=== PATIENT | female | born 1960 | race Caucasian/White ===

== ENCOUNTER 2022-10-13 08:47 | Emergency (ER) | payer BC, MEDICAID ==
[~2022-10-13] VITALS: Ht 154.9 cm; Wt 52.0 kg
[2022-10-13 09:46] VITALS: BP 141/68
[2022-10-13] MEDS ORDERED: ALBUTEROL MEDNEB 2.5 mg/3ml NEB ONE (12:25)
[2022-10-13] MEDS ORDERED: ALBUTEROL SULF 2.5 MG/0.5ML(0.5%) NEB SOLN NEB ONE (12:30)
[2022-10-13] MEDS ORDERED: MAGNESIUM SULFATE 1GM/100ML 100 ML IV SCH (12:30)
[2022-10-13] MEDS ORDERED: DexAMETHasone SOD PHOS 10MG/1ML VIAL INJ IV ONE (12:30)
[2022-10-13] MEDS ORDERED: IPRATROPIUM BROM 0.5 MG/2.5ML INH SOL NEB ONE (12:30)
[2022-10-13 12:40] LABS: Hematocrit 48.9 % (36.0-46.0); Hemoglobin 16.6 g/dL (12.2-16.2); Mean Corpuscular Hemoglobin 30.2 pg (28.0-32.0); Mean Corpuscular Hgb Conc. 33.9 g/dL (32.0-36.0); Mean Corpuscular Volume 89.2 fL (80.0-100.0); Red Blood Cells 5.48 10^6/uL (4.0-5.20); Red Cell Distribution Width 13.9 % (11.8-14.3); White Blood Cell 9.8 10^3/uL (4.4-10.8)
[2022-10-13 13:11] LABS: Albumin 4.1 g/dL (3.4-5.0); Calcium 9.2 mg/dL (8.5-10.1); Potassium 5.2 mmol/L (3.5-5.1)
[2022-10-13 13:14] LABS: BUN/Creatinine Ratio 20.9; Bilirubin, Total 0.9 mg/dL (0.2-1.0); Total Protein 6.4 g/dL (6.4-8.2)
[2022-10-13 13:15] LABS: Basophils % (manual) 0 (0.0-2.0); Blast Cells 0; Metamyelocytes % 0; Myelocytes % 0; Promyelocytes % 0; Reactive Lymphocytes 0
[2022-10-13 14:48] LABS: Band Neutrophils % (manual) 5; Eosinophils % (manual) 8 (0-7); Lymphocytes % (manual) 11 (10.0-50.0); Monocytes % (manual) 8 (0-12)
== END 2022-10-13 16:04 | disposition left against medical advice (07) ==
LOC: ER 08:47
DX: J45.901 Unspecified asthma with (acute) exacerbation (principal); Z20.822 Contact with and (suspected) exposure to COVID-19
CPT/HCPCS: 36415; 71046; 80053; 83880; 84484; 85007; 85027; 87426; 87804; 94640; 99284; J7644

== ENCOUNTER 2023-09-02 13:08 | Inpatient (IN) | payer MEDICAID ==
[~2023-09-02] VITALS: Ht 157.5 cm; Wt 61.3 kg
[~2023-09-02 13:08] MED LIST: ACET-1080 PO; METH-1182 PO
[2023-09-02 13:12] VITALS: BP 157/105; PULSE 142; O2SAT 100
[2023-09-02] MEDS ORDERED: IPRATROPIUM BROM 0.5 MG/2.5ML INH SOL HHN ONE (13:15)
[2023-09-02] MEDS ORDERED: LORazepam 2MG/ML-1ML VIAL IV ONE (13:15)
[2023-09-02] MEDS ORDERED: methylPREDNISolone SOD SUCC 125 MG/2 ML VL IV ONE (13:15)
[2023-09-02] MEDS ORDERED: ALBUTEROL SULF 2.5 MG/0.5ML(0.5%) NEB SOLN HHN ONE (13:15)
[2023-09-02 14:01] LABS: Red Cell Distribution Width 14.4 % (11.8-14.3)
[2023-09-02 14:03] LABS: Hematocrit 50.1 % (36.0-46.0); Mean Corpuscular Hemoglobin 28.9 pg (28.0-32.0); Mean Corpuscular Hgb Conc. 33.8 g/dL (32.0-36.0); Mean Corpuscular Volume 85.5 fL (80.0-100.0); Red Blood Cells 5.86 10^6/uL (4.0-5.20)
[2023-09-02 14:06] LABS: Alanine Aminotransferase 22 U/L (7-40); Alkaline Phosphatase 121 U/L (46-116); Anion Gap 7 (5-15); Aspartate Aminotransferase 23 U/L (13-40); BUN/Creatinine Ratio 29.8 (10.0-20.0); Blood Urea Nitrogen 17 mg/dL (9-23); Calcium 10.2 mg/dL (8.7-10.4); Carbon Dioxide 29 mmol/L (20-30); Chloride 104 mmol/L (98-107); Glucose 152 mg/dL (74-106); Magnesium 2.3 mg/dL (1.6-2.6); Potassium 4.3 mmol/L (3.5-5.1); Sodium 140 mmol/L (136-145)
[2023-09-02 14:07] LABS: Bilirubin, Total 0.5 mg/dL (0.2-1.0); Total Protein 7.5 g/dL (5.7-8.2)
[2023-09-02 14:11] LABS: White Blood Cell 31.4 10^3/uL (4.4-10.8)
[2023-09-02 14:13] LABS: Band Neutrophils % (manual) 0; Basophils % (manual) 0 (0.0-2.0); Blast Cells 0; Metamyelocytes % 0; Myelocytes % 0; Promyelocytes % 0; Reactive Lymphocytes 0
[2023-09-02 14:35] LABS: Eosinophils % (manual) 1 (0-7); Lymphocytes % (manual) 13 (10.0-50.0); Monocytes % (manual) 14 (0-12)
[2023-09-02 14:36] LABS: Platelet Estimate Adequa
[2023-09-02] MEDS ORDERED: SODIUM CHLORIDE 0.9% 500 ML IV ONE (15:30)
[2023-09-02 15:36] VITALS: PULSE 134; RESP 25; O2SAT 98
[2023-09-02 16:41] VITALS: BP 142/101; PULSE 112; O2SAT 98
[2023-09-02 18:10] VITALS: BP 137/92; PULSE 118; O2SAT 98
[2023-09-02 20:49] LABS: Urine Bacteria FEW /hpf (None Seen); Urine Blood Negative /uL (Negative); Urine Clarity Clear (Clear); Urine Color Yellow (Yellow); Urine Hyaline Cast FEW /lpf (0 - 2); Urine Mucus FEW (None Seen); Urine Protein, UAD 1+ (Negative); Urine Specific Gravity 1.024 (1.001-1.035); Urine Urobilinogen Normal (Negative); Urine WBC 4 /hpf (0 - 5); Urine pH 5.5 (5.0-8.0)
[2023-09-02] MEDS ORDERED: NITROGLYCERIN 0.4 MG SL TAB SL PRN (21:45)
[2023-09-02] MEDS ORDERED: ACETAMINOPHEN 325 MG TAB PO PRN (21:45)
[2023-09-02] MEDS ORDERED: MORPHINE SULFATE INJ 2 MG/ml SYRG IV PRN (21:45)
[2023-09-02] MEDS ORDERED: ONDANSETRON HCL 4 MG/2 ML VIAL IV PRN (21:45)
[2023-09-02] MEDS ORDERED: methylPREDNISolone SOD SUCC 40 MG/ML VL IV SCH (22:00)
[2023-09-02 22:52] VITALS: PULSE 98; RESP 20; O2SAT 97; O2SAT 98
[2023-09-02] MEDS: ALBUTEROL SULF 2.5 MG/0.5ML(0.5%) NEB SOLN NEB PRN (22:52)
[2023-09-02] MEDS: BUDESONIDE (INHALATION) 0.5 MG/2 ML NEB NEB SCH (22:52)
[2023-09-02] MEDS: IPRATROPIUM BROM 0.5 MG/2.5ML INH SOL NEB PRN (22:52)
[2023-09-02 23:02] VITALS: PULSE 100; RESP 20; O2SAT 100
[2023-09-03] VITALS (14 sets, daily range): BP systolic 106–144; BP diastolic 74–81; PULSE 61–107; RESP 17–22; TEMP 97.5–98; O2SAT 85–100
[2023-09-03 05:34] LABS: Hematocrit 39.6 % (36.0-46.0); Hemoglobin 13.4 g/dL (12.2-16.2); Mean Corpuscular Hemoglobin 28.9 pg (28.0-32.0); Mean Corpuscular Hgb Conc. 33.8 g/dL (32.0-36.0); Mean Corpuscular Volume 85.7 fL (80.0-100.0); Red Blood Cells 4.63 10^6/uL (4.0-5.20); Red Cell Distribution Width 13.8 % (11.8-14.3)
[2023-09-03 05:40] LABS: Alanine Aminotransferase 13 U/L (7-40); Albumin 3.8 g/dL (3.2-4.8); Alkaline Phosphatase 81 U/L (46-116); Anion Gap 8 (5-15); Aspartate Aminotransferase 14 U/L (13-40); BUN/Creatinine Ratio 24.2 (10.0-20.0); Bilirubin, Total 0.6 mg/dL (0.2-1.0); Blood Urea Nitrogen 8 mg/dL (9-23); Calcium 9.6 mg/dL (8.7-10.4); Carbon Dioxide 25 mmol/L (20-30); Chloride 103 mmol/L (98-107); Glucose 100 mg/dL (74-106); Potassium 3.9 mmol/L (3.5-5.1); Sodium 136 mmol/L (136-145); Total Protein 5.9 g/dL (5.7-8.2)
[2023-09-03 05:52] LABS: Basophils % (manual) 0 (0.0-2.0); Blast Cells 0; Eosinophils % (manual) 0 (0-7); Metamyelocytes % 0; Myelocytes % 0; Promyelocytes % 0; Reactive Lymphocytes 0
[2023-09-03 09:25] LABS: Band Neutrophils % (manual) 1; Lymphocytes % (manual) 6 (10.0-50.0); Monocytes % (manual) 5 (0-12)
[2023-09-03 09:26] LABS: Platelet Estimate Adequate; RBC Morphology Normal
[2023-09-03] MEDS: methylPREDNISolone SOD SUCC 40 MG/ML VL IV SCH ×2 (10:24→21:05)
[2023-09-03] MEDS: IPRATROPIUM BROM 0.5 MG/2.5ML INH SOL NEB PRN (11:29)
[2023-09-03] MEDS: ALBUTEROL SULF 2.5 MG/0.5ML(0.5%) NEB SOLN NEB PRN (11:29)
[2023-09-03] MEDS: BUDESONIDE (INHALATION) 0.5 MG/2 ML NEB NEB SCH ×2 (11:29→18:24)
[2023-09-03] MEDS: AZITHROMYCIN 250 MG TAB PO SCH (15:31)
[2023-09-03] MEDS: IPRATROPIUM BROM 0.5 MG/2.5ML INH SOL NEB SCH (18:24)
[2023-09-03] MEDS: ALBUTEROL SULF 2.5 MG/0.5ML(0.5%) NEB SOLN NEB SCH (18:24)
[2023-09-03] MEDS: TEMAZEPAM 15 MG CAP PO PRN (21:10)
[2023-09-04] VITALS (12 sets, daily range): BP systolic 122–137; BP diastolic 73–79; PULSE 75–92; RESP 17–20; TEMP 97.7–98.1; O2SAT 93–97
[2023-09-04] MEDS: IPRATROPIUM BROM 0.5 MG/2.5ML INH SOL NEB SCH ×2 (06:24→13:28)
[2023-09-04] MEDS: BUDESONIDE (INHALATION) 0.5 MG/2 ML NEB NEB SCH ×2 (06:24→20:25)
[2023-09-04] MEDS: ALBUTEROL SULF 2.5 MG/0.5ML(0.5%) NEB SOLN NEB SCH ×2 (06:24→13:28)
[2023-09-04 06:27] LABS: Hematocrit 39.5 % (36.0-46.0); Hemoglobin 13.3 g/dL (12.2-16.2); Mean Corpuscular Hemoglobin 28.8 pg (28.0-32.0); Mean Corpuscular Hgb Conc. 33.8 g/dL (32.0-36.0); Mean Corpuscular Volume 85.3 fL (80.0-100.0); Red Blood Cells 4.63 10^6/uL (4.0-5.20); White Blood Cell 10.3 10^3/uL (4.4-10.8)
[2023-09-04 06:32] LABS: Basophils % (manual) 0 (0.0-2.0); Blast Cells 0; Eosinophils % (manual) 0 (0-7); Myelocytes % 0; Promyelocytes % 0; Reactive Lymphocytes 0
[2023-09-04 06:43] LABS: Anion Gap 7 (5-15); Carbon Dioxide 30 mmol/L (20-30); Chloride 102 mmol/L (98-107); Potassium 4.1 mmol/L (3.5-5.1); Sodium 139 mmol/L (136-145)
[2023-09-04 06:44] LABS: Calcium 9.9 mg/dL (8.7-10.4)
[2023-09-04 06:49] LABS: BUN/Creatinine Ratio 25.6 (10.0-20.0); Blood Urea Nitrogen 10 mg/dL (9-23); Glucose 129 mg/dL (74-106)
[2023-09-04] MEDS: AZITHROMYCIN 250 MG TAB PO SCH (09:08)
[2023-09-04] MEDS: methylPREDNISolone SOD SUCC 40 MG/ML VL IV SCH ×2 (09:09→22:00)
[2023-09-04 09:31] LABS: Band Neutrophils % (manual) 11; Lymphocytes % (manual) 5 (10.0-50.0); Metamyelocytes % 5; Monocytes % (manual) 4 (0-12); Platelet Estimate Adequate
[2023-09-04] MEDS: ALBUTEROL SULF 2.5 MG/0.5ML(0.5%) NEB SOLN NEB PRN (20:25)
[2023-09-04] MEDS: IPRATROPIUM BROM 0.5 MG/2.5ML INH SOL NEB PRN (20:25)
[2023-09-04] MEDS: TEMAZEPAM 15 MG CAP PO PRN (22:09)
[2023-09-05] VITALS (7 sets, daily range): BP systolic 126–131; BP diastolic 77–86; PULSE 64–97; RESP 18; TEMP 36.6; O2SAT 91–98
[2023-09-05 05:37] LABS: Chloride 104 mmol/L (98-107); Potassium 3.4 mmol/L (3.5-5.1); Sodium 138 mmol/L (136-145)
[2023-09-05 05:38] LABS: Anion Gap 5 (5-15); Calcium 9.2 mg/dL (8.7-10.4); Carbon Dioxide 29 mmol/L (20-30)
[2023-09-05 05:42] LABS: Hematocrit 38.2 % (36.0-46.0); Mean Corpuscular Hgb Conc. 34.1 g/dL (32.0-36.0); Mean Corpuscular Volume 85.1 fL (80.0-100.0); Red Blood Cells 4.49 10^6/uL (4.0-5.20); Red Cell Distribution Width 14.5 % (11.8-14.3); White Blood Cell 8.2 10^3/uL (4.4-10.8)
[2023-09-05 05:44] LABS: BUN/Creatinine Ratio 24.3 (10.0-20.0); Blood Urea Nitrogen 9 mg/dL (9-23); Glucose 86 mg/dL (74-106)
[2023-09-05 05:50] LABS: Band Neutrophils % (manual) 0; Basophils % (manual) 0 (0.0-2.0); Blast Cells 0; Eosinophils % (manual) 0 (0-7); Metamyelocytes % 0; Promyelocytes % 0; Reactive Lymphocytes 0
[2023-09-05] MEDS: ALBUTEROL SULF 2.5 MG/0.5ML(0.5%) NEB SOLN NEB PRN (07:44)
[2023-09-05] MEDS: BUDESONIDE (INHALATION) 0.5 MG/2 ML NEB NEB SCH (07:44)
[2023-09-05] MEDS: IPRATROPIUM BROM 0.5 MG/2.5ML INH SOL NEB PRN (07:44)
[2023-09-05] MEDS: AZITHROMYCIN 250 MG TAB PO SCH (09:06)
[2023-09-05] MEDS: methylPREDNISolone SOD SUCC 40 MG/ML VL IV SCH (09:06)
[2023-09-05 09:16] LABS: Lymphocytes % (manual) 18 (10.0-50.0); Monocytes % (manual) 11 (0-12); Myelocytes % 3; Platelet Estimate Adequate
[2023-09-05] MEDS ORDERED: DOXY-448 PO (11:58)
[2023-09-05] MEDS ORDERED: PRED20TA2 PO (11:58)
[2023-09-05] MEDS ORDERED: POTASSIUM EFFERVESENT TAB 25 MEQ PO ONE (14:30)
== END 2023-09-05 17:00 | disposition home health service (06) | DRG 720 ==
LOC: ER 13:08 → EDBD 13:08 → TELE 21:42 → TELE-CENTR 09-03 09:22
PROVIDERS: ADMIT Nurse Practitioner; ATTEND Nurse Practitioner Acute Care
PROC: 5A09357 Assistance with Respiratory Ventilation, Less than 24 Consecutive Hours, Continuous Positive Airway Pressure (ICD-10-PCS; principal; 2023-09-02)
DX: A41.9 Sepsis, unspecified organism (principal); J96.21 Acute and chronic respiratory failure with hypoxia; J15.69 Pneumonia due to other Gram-negative bacteria; J44.1 Chronic obstructive pulmonary disease with (acute) exacerbation; J43.9 Emphysema, unspecified; E87.6 Hypokalemia; I35.0 Nonrheumatic aortic (valve) stenosis; Z53.29 Procedure and treatment not carried out because of patient's decision for other reasons; J96.22 Acute and chronic respiratory failure with hypercapnia; Z87.891 Personal history of nicotine dependence; Z90.710 Acquired absence of both cervix and uterus; Z95.2 Presence of prosthetic heart valve; Z79.899 Other long term (current) drug therapy; Z82.49 Family history of ischemic heart disease and other diseases of the circulatory system; J15.9 Unspecified bacterial pneumonia
CPT/HCPCS: 36415; 36600; 71045; 80048; 80053; 81001; 82805; 83605; 83735; 83880; 84484; 85007; 85027; 85379; 87040; 93005; 94640; 94644; 94660; 97163; 99291; G0378

== ENCOUNTER 2024-09-05 11:13 | Inpatient (IN) | payer MEDICAID ==
[2024-09-05] VITALS (9 sets, daily range): BP systolic 115–116; BP diastolic 71–77; PULSE 94–108; RESP 12–25; TEMP 97.8–98.5; O2SAT 93–98
[~2024-09-05] VITALS: Ht 152.4 cm; Wt 48.3 kg
[~2024-09-05 11:13] MED LIST changes: +DOXY100C79 PO; +PRED20TA2 PO
--- NOTE | 2024-09-05 11:27 | ED.PDOC ---
HPI Comments HPI: Poor Historian. 63y F who presents to the ED via EMS for chief complaint of chest pain. Pt had the following presentation of symptoms: -pt has been having chest pain since 1 days prior and states pain was radiating to the L shoulder. - pt states her symptom persisted and pt took ASA and called EMS to the scene - EMS arrived on scene and pt was given 1 of nitro and brought to the ED with relief of symptoms. VITALS: Temp: 98.5 F RR: 15 02 sat : 88 % on room air HR: 103 BP: 108/73 PMH: COPD, hyperlipidemia, Acute on chronic hypoxic respiratory failure PSH: aortic valve replacement, Hysterectomy, cataract surgery Social history: denies tobacco use, denies ETOH use, denies drug use Medications: ASA, Allergies: none REVIEW OF SYSTEMS: CONSTITUTIONAL: Denies acute: fever, diaphoresis, chills, generalized weakness. HEAD: Denies acute: headache, photophobia Eyes: Denies acute: Double vision, vision loss, eye pain, eye discharge. EARS: Denies acute: tinnitus, hearing loss, ear discharge, ear pain, THROAT: Denies acute: sore throat, swelling, difficulty swallowing , pain with swallowing, change in voice. NECK: Denies acute: neck pain, neck swelling, stiff neck. HEART: Denies acute : palpitations, LUNGS: Denies acute: SOB, wheezing, cough, hemoptysis ABDOMEN: Denies acute: abdominal pain, Nausea, Vomiting, diarrhea, melena , hematemesis, hematochezia SKIN: Denies acute: rash, redness, lesions, itchiness. EXTREMITIES: Denies acute: calf pain, numbness, tingling, weakness, denies pain in extremity. Denies acute: Low back pain. Neuro: Denies acute: focal neurological deficit, motor or sensory focal neurological deficit, tremors, seizure like activity, confusion, dizziness, change in mental status, loss of bowel or bladder function, cauda equina like symptoms. : Denies acute: dysuria, hematuria, flank pain, increase in urinary frequency. PSYCH: Denies acute: hallucination, suicidal ideation, homicidal ideation. FEMALE: Denies acute: abnormal vaginal bleeding, foul odor, unusual discharge. PHYSICAL EXAM: General: no acute distress, awake and alert. Head: normocephalic, atraumatic. Neck: supple, trachea is midline, no swelling. Throat: Normal phonation. Eyes:, no erythema, no purulent discharge, no proptosis, no icterus. Heart: regular rate, regular rhythm, no significant murmur appreciated. Lungs: no apparent respiratory distress, Able to speak in full sentences. No wheezing, no rhonchi, no crackles. No stridors Clear to auscultation bilaterally. Patient is wearing supplemental oxygen. Abdomen: non tender to palpation, non distended, soft, no guarding, no rebound, + bowel sounds. Neuro: Awake, Alert, oriented to name, self, situation, follows commands GCS=15. Speech is normal. Skin: no petechia, no purpura, no cyanosis, non-pale, not jaundice. Lower extremities: --no - Pitting edema no deformity, no focal swelling, no calf TTP. Makes eye contact. moves all four extremities. Face: no apparent facial droop. Chief Complaint: Chest Pain Time Seen by MD: 11:26 Primary Care Provider: UNKNOWN Reviewed Notes: Nurses Notes, Personnel Worker Notes, Allergies Allergies: Coded Allergies: NO KNOWN ALLERGIES (Unverified , 02/17/23) Home Meds Active Scripts Prednisone (Prednisone) 20 Mg Tab, 20 MG PO BID for 6 Days, #6 MG 10 mg twice a day x 3 days 10 mg once a day x 3 days Prov:YULIA WEBB NP 09/05/23 Doxycycline (Monohydrate) (Doxycycline) 100 Mg Cap, 100 MG PO BID for 7 Days, #14 CAP Prov:YULIA WEBB FRUIT WORKER 09/05/23 Acetaminophen (Tylenol 8 Hour Arthritis) 650 Mg Tab, 650 MG PO TID, #30 TAB Prov:CAMILLE HERNANDEZ 02/17/23 Methocarbamol (Methocarbamol) 750 Mg Tab, 750 MG PO BID, #20 TAB Prov:CAMILLE HERNANDEZ 02/17/23 Reported Medications Atorvastatin Calcium (ATORVASTATIN CALCIUM) 10 Mg Tab, PO 09/05/24 Information Source: Patient, Emergency Med Personnel Mode of Arrival: EMS Past Medical History PAST MEDICAL HISTORY: Asthma, COPD Surgical History: Hysterectomy, Denies all surgeries SERVICE TECH History: No Pertinent SERVICE TECH History Family History Family History: Reviewed,noncontributory to illness Social History Smoker: Non-Smoker Alcohol: Denies ETOH Use Drugs: Denies Drug Use Lives In: Home Was a procedure done? Was a procedure done?: No X-Ray, Labs, Meds, VS Vital Signs Date Time Temp Pulse Resp B/P (MAP) Pulse Ox O2 Delivery O2 Flow Rate FiO2 09/05/24 13:32 115/71 09/05/24 12:15 84 09/05/24 12:00 87 23 110/69 (83) 96 09/05/24 11:25 100 12 93 Nasal Cannula* 2 28 09/05/24 11:25 98.5 100 12 117/76 (90) 93 98.5 09/05/24 11:18 98.5 103 15 108/73 (85) 88 09/05/24 11:13 108 Lab Test 09/05/24 14:37 09/05/24 14:31 09/05/24 13:08 09/05/24 11:30 Range/Units Troponin I High Sensitivity < 3 L < 3 L < 3 L </=34 ng/L C-Reactive Protein High Sensitivity 5.59 H <1.0 mg/dL D-Dimer, Quantitative 1.10 H 0.0-0.49 mg/L FEU White Blood Count 16.6 H 4.4-10.8 10^3/uL Red Blood Count 4.88 4.0-5.20 10^6/uL Hemoglobin 13.8 12.2-16.2 g/dL Hematocrit 41.7 36.0-46.0 % Mean Corpuscular Volume 85.6 80.0-100.0 fL Mean Corpuscular Hemoglobin 28.3 28.0-32.0 pg Mean Corpuscular Hemoglobin Concent 33.0 32.0-36.0 g/dL Red Cell Distribution Width 15.8 H 11.8-14.3 % Platelet Count 470 H 140-450 10^3/uL Mean Platelet Volume 6.6 L 6.9-10.8 fL Neutrophils (%) (Auto) 37.0-80.0 % Lymphocytes (%) (Auto) 10.0-50.0 % Monocytes (%) (Auto) 0.0-12.0 % Basophils (%) (Auto) 0.0-2.0 % Neutrophils # (Auto) 1.6-8.6 10 ^3/uL Lymphocytes # (Auto) 0.4-5.4 10 ^3/uL Monocytes # (Auto) 0-1.3 10 ^3/uL Differential Total Cells Counted 100.0 100 Neutrophils % (Manual) 69 37.0-80.0 Band Neutrophils % (Manual) 2 Lymphocytes % (Manual) 13 10.0-50.0 Monocytes % (Manual) 16 H 0-12 Eosinophils % (Manual) 0 0-7 Basophils % (Manual) 0 0.0-2.0 Metamyelocytes % (manual) 0 Myelocytes % (Manual) 0 Promyelocytes % (Manual) 0 Blast Cells % (Manual) 0 Reactive Lymphocytes 0 Platelet Estimate Increased Prothrombin Time 11.9 H 9.3-11.8 sec Prothrombin Time INR 1.13 0.9-1.15 Activated Partial Thromboplast Time 31.9 24.5-34.5 SEC Urine Color Colorless Yellow Urine Clarity Clear Clear Urine pH 6.0 5.0-9.0 Urine Specific [place] 1.010 1.001-1.035 Urine Protein Negative Negative Urine Ketones Negative Negative Urine Blood Negative Negative /uL Urine Nitrite 2+ H Negative Urine Bilirubin Negative Negative Urine Urobilinogen Normal Negative mg/dL Urine Leukocyte Esterase Trace Negative /uL Urine RBC <1 0 - 4 /hpf Urine WBC 5 0 - 5 /hpf Urine Squamous Epithelial Cells None seen <5 /hpf Urine Bacteria Few H None Seen /hpf Urine Glucose Normal Normal mg/dL Sodium Level 137 136-145 mmol/L Potassium Level 4.1 3.5-5.1 mmol/L Chloride Level 107 98-107 mmol/L Carbon Dioxide Level 23 20-31 mmol/L Anion Gap 7 5-15 Blood Urea Nitrogen 7 L 9-23 mg/dL Creatinine 0.35 L 0.550-1.02 mg/dL Glomerular Filtration Rate Calc 116 >90 mL/min BUN/Creatinine Ratio 20.0 10.0-20.0 Serum Glucose 82 74-106 mg/dL Calcium Level 9.7 8.7-10.4 mg/dL Total Bilirubin 0.2 0.2-1.0 mg/dL Aspartate Amino Transferase (AST) 20 13-40 U/L Alanine Aminotransferase (ALT) 12 7-40 U/L Alkaline Phosphatase 138 H 46-116 U/L B-Type Natriuretic Peptide 22.65 0-100 pg/mL Total Protein 5.1 L 5.7-8.2 g/dL Albumin 3.4 3.2-4.8 g/dL Current Medications Medications (Trade) Dose Ordered Sig/Atilio Route Start Time Stop Time Status Last Admin Ceftriaxone Sodium 50 ml @ 100 mls/hr ONCE ONCE IV 09/05/24 13:15 09/05/24 13:44 DC 09/05/24 13:31 Furosemide (Lasix Injection) 40 mg ONCE ONCE IV 09/05/24 13:15 09/05/24 13:22 DC 09/05/24 13:32 [place] [id number] Ph: [phone] DIAGNOSTIC IMAGING Diagnostic Imaging Report : [id number] Signed PATIENT: DARIUS LUCEROCCT: [id number] UNIT: [id number] : 1960 LOC: ER ROOM / BED: / AGE / SEX: 63 / F ADM STATUS: REG ER SERVICE 1114 ORDERING PHYSICIAN: TOSHIA ESTRADA MD PROCEDURE(s): CXRP - CHEST PORTABLE REASON: CHEST PAIN ORDER NUMBER(s): [id number], ACCESSION NUMBER(s): [id number] CHEST RADIOGRAPH Indication: CHEST PAIN Technique: Single frontal view of the chest was obtained Comparison: XY CHEST PORTABLE on DOS: 09/05/23, XY CHEST PORTABLE on DOS: 09/04/23 FINDINGS: Lines and Tubes: None Lungs: No focal consolidation. Diffuse bilateral interstitial opacities. Region of traction/scarring at the left lateral mid lung zone. Pleura: Blunted left costophrenic angle. No pneumothorax. Cardiomediastinal contours: Unremarkable Bones: No acute osseous abnormality. IMPRESSION: 1. Diffuse bilateral interstitial opacities could be due to pulmonary vascular congestion, atypical infection, or pneumonitis. 2. Region traction/scarring/ atelectasis of the mid left lung zone. 3. Blunted left costophrenic angle may be due to small left pleural effusion versus left basilar infiltrate/atelectasis. HS:Y ATED BY: MARC JOHNSON DO DICTATED DATE/TIME: 09/05/24 1137 SIGNED BY: MARC JOHNSON DO SIGNED DATE/TIME: 09/05/24 1133 CC: Patient Education/Counseling: Diagnosis, Treatment Family Education/Counseling: No Family Present Comments MDM: Patient presented with the above HPI.----- chest pain-- -workup was initiated. patient was found with the above mentioned diagnosis. the following medications were ordered: none the following tests were ordered: EKG x3, troponin x3 ,PT PTT, CBC, CMP, chest x-ray Patient ED course and VS have been stabilized. Patient has been reassessed in the ED and remained in a stable condition. Patient has been observed in the ED adequate length of time to insure improvement/stability. Escalation of care considered: Consideration of escalation to observation or admission. patient was ADMITTED to the medicine team for further evaluation and treatment of their presentation. All the reports of any imaging studies that were ordered by myself were reviewed by myself. Departure 1 Departure Time of Disposition: 13:08 Impression: Primary Impression: Chest pain Disposition: ADMITTED INPATIENT Admit to: [facility] Condition: Guarded Discharged With: Self Critical Care Note Critical Care Time?: No Heart Score Heart Score: Heart Score Response (Comments) Value History Slightly Suspicious 0 Age 45-64 1 Risk Factors 1 or 2 risk factors 1 Troponin Normal limit 0 Total 2 I personally scribed for CHAYITO WATSON DO ([email or web address]) on 09/05/24 at 11:27. Electronically submitted by Shaka Carrillo ([email or web address]). I personally scribed for CHAYITO WATSON DO ([email or web address]) on 09/05/24 at 11:55. Electronically submitted by Shaka Carrillo ([email or web address]). I personally scribed for CHAYITO WATSON DO ([email or web address]) on 09/05/24 at 18:07. Electronically submitted by Shaka Carrillo ([email or web address]). CHAYITO WATSON DO Sep 05, 2024 11:27
--- NOTE | 2024-09-05 11:39 | DVH ---
CHEST RADIOGRAPH Indication: CHEST PAIN Technique: Single frontal view of the chest was obtained Comparison: XY CHEST PORTABLE on DOS: 09/05/23, XY CHEST PORTABLE on DOS: 09/04/23 FINDINGS: Lines and Tubes: None Lungs: No focal consolidation. Diffuse bilateral interstitial opacities. Region of traction/scarring at the left lateral mid lung zone. Pleura: Blunted left costophrenic angle. No pneumothorax. Cardiomediastinal contours: Unremarkable Bones: No acute osseous abnormality. IMPRESSION: 1. Diffuse bilateral interstitial opacities could be due to pulmonary vascular congestion, atypical i nfection, or pneumonitis. 2. Region traction/scarring/ atelectasis of the mid left lung zone. 3. Blunted left costophrenic angle may be due to small left pleural effusion versus left basilar infi ltrate/atelectasis. HS:Y
[2024-09-05 11:45] LABS: Hematocrit 41.7 % (36.0-46.0); Hemoglobin 13.8 g/dL (12.2-16.2); Mean Corpuscular Hemoglobin 28.3 pg (28.0-32.0); Mean Corpuscular Volume 85.6 fL (80.0-100.0); Platelet Count (auto) 470 10^3/uL (140-450); Red Blood Cells 4.88 10^6/uL (4.0-5.20); Red Cell Distribution Width 15.8 % (11.8-14.3); White Blood Cell 16.6 10^3/uL (4.4-10.8)
[2024-09-05 11:49] LABS: Basophils % (manual) 0 (0.0-2.0); Blast Cells 0; Eosinophils % (manual) 0 (0-7); Metamyelocytes % 0; Myelocytes % 0; Promyelocytes % 0; Reactive Lymphocytes 0
[2024-09-05 11:56] LABS: INR 1.13 (0.9-1.15); Partial Thromboplastin Time 31.9 SEC (24.5-34.5); Prothrombin Time 11.9 sec (9.3-11.8)
[2024-09-05 12:17] LABS: Alanine Aminotransferase 12 U/L (7-40); Albumin 3.4 g/dL (3.2-4.8); Anion Gap 7 (5-15); Aspartate Aminotransferase 20 U/L (13-40); Calcium 9.7 mg/dL (8.7-10.4); Carbon Dioxide 23 mmol/L (20-31); Glucose 82 mg/dL (74-106); Potassium 4.1 mmol/L (3.5-5.1); Sodium 137 mmol/L (136-145)
[2024-09-05 12:35] LABS: Alkaline Phosphatase 138 U/L (46-116); Bilirubin, Total 0.2 mg/dL (0.2-1.0); Blood Urea Nitrogen 7 mg/dL (9-23); Chloride 107 mmol/L (98-107); Total Protein 5.1 g/dL (5.7-8.2)
[2024-09-05 13:21] LABS: Band Neutrophils % (manual) 2; Lymphocytes % (manual) 13 (10.0-50.0); Monocytes % (manual) 16 (0-12)
[2024-09-05 13:22] LABS: Platelet Estimate Increased
[2024-09-05] MEDS: cefTRIAXone 1GM/50ML D5W 50 ML IV ONE (13:31)
[2024-09-05] MEDS: FUROSEMIDE 40 MG/4 ML VIAL IV ONE (13:32)
[2024-09-05 14:43] LABS: Urine Bacteria FEW /hpf (None Seen); Urine Blood Negative /uL (Negative); Urine Clarity Clear (Clear); Urine Color Colorless (Yellow); Urine Protein, UAD Negative (Negative); Urine Squamous Epithelial Cell None Seen /hpf (<5); Urine Urobilinogen Normal (Negative); Urine WBC 5 /hpf (0 - 5)
[2024-09-05] MEDS ORDERED: NITROGLYCERIN 0.4 MG SL TAB SL PRN (15:45)
[2024-09-05] MEDS ORDERED: MORPHINE SULFATE INJ 2 MG/ml SYRG IV PRN (15:45)
[2024-09-05] MEDS ORDERED: ATOR10TA52 PO (15:48)
[2024-09-05] MEDS ORDERED: IPRATROPIUM BROM 0.5 MG/2.5ML INH SOL NEB SCH (16:00)
[2024-09-05] MEDS ORDERED: ONDANSETRON HCL 4 MG/2 ML VIAL IV PRN (16:00)
[2024-09-05] MEDS ORDERED: DOCUSATE SOD 100 MG CAP PO PRN (16:00)
[2024-09-05] MEDS ORDERED: ALBUTEROL SULF 2.5 MG/0.5ML(0.5%) NEB SOLN NEB SCH (16:00)
[2024-09-05] MEDS ORDERED: ACETAMINOPHEN 500 MG TAB or CAP PO PRN (16:00)
--- NOTE | 2024-09-05 16:08 | DVHHP2 ---
History of Present Illness Reason for Visit: Chest pain, shortness of breath History of Present Illness The patient was a 63-year-old female brought into the hospital by EMS with reports of acute chest pain, shortness of breath, nausea, pallor, as well as radiation of the pain to her left arm. Patient continues to report having intermittent chest pain, described as sharp in nature to the left aspect of her chest. She reports that her symptoms have improved since being in the hospital. While in the emergency room the patient did receive aspirin as well as IV Lasix. She reports having multiple episodes of voiding, with the patient stating that she does have mild dyspnea with ambulating to the bathroom. Currently she was on2 L nasal cannula. Troponins thus far have been negative. EKG is unremarkable. Chest x-ray does reveal atypical pneumonia versus acute CHF. The patient does report having a significant history of SAVR six months ago with a tissue valve, COPD for which she takes trelegy and nebulizer treatments as needed, dyslipidemia, and chronic pain. The patient also reports recently being discharged home with a diagnosis of ESBL in the urine for which she has completed IV antibiotics and has had her PICC line removed. Cardiovascular: hyperipidemia, aortic stenosis Pulmonary: COPD Heme/Onc: Other (Myeloproliferative disorder) Past Surgical History: Other (SAVR) Family History: None Smoke: No ALCOHOL: none Drugs: None Lives: with Family Domestic Violence: Neg Review of Systems Constitutional: Yes: Weakness Eyes: No: Pain, Vision change, Conjunctivae inflammation, Eyelid inflammation, Other, Redness ENT: No: Ear pain, Ear discharge, Nose pain, Nose discharge, Nose congestion, Mouth pain, Mouth swelling, Throat pain, Throat swelling, Other Respiratory: Shortness of breath Cardiovascular: Chest Pain Gastrointestinal: No: Nausea, Vomiting, Abdominal Pain, Diarrhea, Constipation, Melena, Hematochezia, Other Genitourinary: No Dysuria, No Frequency, No Incontinence, No Hematuria, No Retention, No Other Musculoskeletal: No: other, neck pain, shoulder pain, arm pain, back pain, hand pain, leg pain, foot pain Skin: No: Rash, Lesions, Jaundice, Bruising, Other Allergies: Coded Allergies: NO KNOWN ALLERGIES (Unverified , 02/17/23) Medications Current Medications Medications Dose Ordered Sig/Atilio Route Start Time Stop Time Status Last Admin Dose Admin Nitroglycerin 0.4 mg Q5MINP PRN SL 09/05/24 15:45 UNV Morphine Sulfate 2 mg Q30M PRN IV 09/05/24 15:45 UNV Morphine Sulfate 1 mg Q4HPRN PRN IV 09/05/24 16:00 UNV Acetaminophen/ Hydrocodone Bitart 1 tab Q6HPRN PRN PO 09/05/24 16:00 UNV Acetaminophen 500 mg Q8HP PRN PO 09/05/24 16:00 UNV Ondansetron HCl 4 mg Q6HP PRN IV 09/05/24 16:00 UNV Docusate Sodium 100 mg BID PRN PO 09/05/24 16:00 UNV Albuterol 2.5 mg Q6H NEB 09/05/24 16:00 UNV Ipratropium [place] 0.5 mg Q6H NEB 09/05/24 16:00 UNV Exam Vital Signs Vital Signs Date Time Temp Pulse Resp B/P (MAP) Pulse Ox O2 Delivery O2 Flow Rate FiO2 09/05/24 13:32 115/71 09/05/24 12:15 84 09/05/24 12:00 23 96 09/05/24 11:25 Nasal Cannula* 2 28 09/05/24 11:25 98.5 98.5 General Appearance: Alert, Oriented X3, Cooperative, mild distress HEENT: Atraumatic, PERRLA Respiratory: Other (Basilar crackles) Cardiovascular: Normal S1, Normal S2, Other (Sinus tachycardia) Abdominal: Normal bowel sounds Extremities: No clubbing, No cyanosis, No edema, Normal pulses Skin: No rashes, No breakdown Neuro: Normal gait, Normal speech Psych/Mental Status: Mental status NL, Mood NL Labs/Xrays Labs Test 09/05/24 14:37 09/05/24 11:30 Range/Units Troponin I High Sensitivity < 3 L </=34 ng/L White Blood Count 16.6 H 4.4-10.8 10^3/uL Red Blood Count 4.88 4.0-5.20 10^6/uL Hemoglobin 13.8 12.2-16.2 g/dL Hematocrit 41.7 36.0-46.0 % Mean Corpuscular Volume 85.6 80.0-100.0 fL Mean Corpuscular Hemoglobin 28.3 28.0-32.0 pg Mean Corpuscular Hemoglobin Concent 33.0 32.0-36.0 g/dL Red Cell Distribution Width 15.8 H 11.8-14.3 % Platelet Count 470 H 140-450 10^3/uL Mean Platelet Volume 6.6 L 6.9-10.8 fL Neutrophils (%) (Auto) 37.0-80.0 % Lymphocytes (%) (Auto) 10.0-50.0 % Monocytes (%) (Auto) 0.0-12.0 % Basophils (%) (Auto) 0.0-2.0 % Neutrophils # (Auto) 1.6-8.6 10 ^3/uL Lymphocytes # (Auto) 0.4-5.4 10 ^3/uL Monocytes # (Auto) 0-1.3 10 ^3/uL Differential Total Cells Counted 100.0 100 Neutrophils % (Manual) 69 37.0-80.0 Band Neutrophils % (Manual) 2 Lymphocytes % (Manual) 13 10.0-50.0 Monocytes % (Manual) 16 H 0-12 Eosinophils % (Manual) 0 0-7 Basophils % (Manual) 0 0.0-2.0 Metamyelocytes % (manual) 0 Myelocytes % (Manual) 0 Promyelocytes % (Manual) 0 Blast Cells % (Manual) 0 Reactive Lymphocytes 0 Platelet Estimate Increased Prothrombin Time 11.9 H 9.3-11.8 sec Prothrombin Time INR 1.13 0.9-1.15 Activated Partial Thromboplast Time 31.9 24.5-34.5 SEC Urine Color Colorless Yellow Urine Clarity Clear Clear Urine pH 6.0 5.0-9.0 Urine Specific [place] 1.010 1.001-1.035 Urine Protein Negative Negative Urine Ketones Negative Negative Urine Blood Negative Negative /uL Urine Nitrite 2+ H Negative Urine Bilirubin Negative Negative Urine Urobilinogen Normal Negative mg/dL Urine Leukocyte Esterase Trace Negative /uL Urine RBC <1 0 - 4 /hpf Urine WBC 5 0 - 5 /hpf Urine Squamous Epithelial Cells None seen <5 /hpf Urine Bacteria Few H None Seen /hpf Urine Glucose Normal Normal mg/dL Sodium Level 137 136-145 mmol/L Potassium Level 4.1 3.5-5.1 mmol/L Chloride Level 107 98-107 mmol/L Carbon Dioxide Level 23 20-31 mmol/L Anion Gap 7 5-15 Blood Urea Nitrogen 7 L 9-23 mg/dL Creatinine 0.35 L 0.550-1.02 mg/dL Glomerular Filtration Rate Calc 116 >90 mL/min BUN/Creatinine Ratio 20.0 10.0-20.0 Serum Glucose 82 74-106 mg/dL Calcium Level 9.7 8.7-10.4 mg/dL Total Bilirubin 0.2 0.2-1.0 mg/dL Aspartate Amino Transferase (AST) 20 13-40 U/L Alanine Aminotransferase (ALT) 12 7-40 U/L Alkaline Phosphatase 138 H 46-116 U/L B-Type Natriuretic Peptide 22.65 0-100 pg/mL Total Protein 5.1 L 5.7-8.2 g/dL Albumin 3.4 3.2-4.8 g/dL Assessment/Plan Assessment/Plan Impression: -chest pain, rule out acute coronary syndrome -acute hypoxic respiratory failure -recent history of SAVR -rule out acute systolic heart failure given probable pulmonary vascular congestion -recent history of ESBL in the urine -COPD -dyslipidemia Plan: -admit to telemetry unit -cardiology consultation -check D-dimer, if elevated order CT angiogram of the chest -continue IV diuresis -restart atorvastatin -troponins negative x2 at this point. Twelve lead ECG without ST changes. S inus tachycardia appreciated -continue DuoNebs q.6 hours, Pulmicort b.i.d. -check ESR, CRP -empiric antibiotic therapy for questionable atypical pneumonia -check influenza and COVID-19 -repeat chest x-ray in a.m. -echocardiogram Total time spent with patient discussing and formulating plan of care: 35 minutes. This medical document was created using an electronic medical record system with [employer] dictation system. Although this document has been carefully reviewed, there may still be some phonetic and typographical errors. These areas are purely typographical due to imperfections of the software programs, and do not reflect any compromise in the patient's medical care. Plan discussed with: Patient, Son, Other (RN) My Orders Orders - YULIA WEBB COMPUTER SYSTEMS ADMINISTRATOR Procedure Category Date Status Time Admit ADMIT 09/05/24 Transmitted 15:45 Nitroglycerin PHA 09/05/24 Logged Sublingual (Ntrostat 15:45 Morphine Sulfate PHA 09/05/24 Logged Injection 15:45 Stat Ekg For Chest LUIS ARMANDO 09/05/24 In Process Pain 15:45 Notify Of Changes [facility] 09/05/24 In Process From Base 15:45 Aerial Erector For [facility] 09/05/24 In Process 24 Hours 15:45 Emergency Dysrhythmia [facility] 09/05/24 In Process Protocol 15:45 Rhythm Strips Once [facility] 09/05/24 In Process Every Shift 15:45 Oxygen By Nasal RT 09/05/24 Transmitted Cannula 15:45 Echo 2d Mode Cardiac US 09/05/24 Logged DOP 15:48 Erythrocyte LAB 09/05/24 Logged Sedimentation Rate 15:48 C-Reactive Protein LAB 09/05/24 Logged 15:48 Urine Bacterial HANESL 09/05/24 Logged Culture 15:48 Morphine Sulfate PHA 09/05/24 Logged Injection 16:00 Hydrocodone-Acet PHA 09/05/24 Logged 5/325mg Tab ([place] 16:00 Acetaminophen Tab Or PHA 09/05/24 Logged Cap (Tylenol Tablet 16:00 Ondansetron Hcl PHA 09/05/24 Logged (Zofran) 16:00 Docusate Sodium PHA 09/05/24 Logged Capsule (Colace 16:00 Albuterol Medneb PHA 09/05/24 Logged (Ventolin Medneb) 16:00 Ipratropium Medneb PHA 09/05/24 Logged (Atrovent Medneb) 16:00 Chest Xray 1 View XY 09/06/24 Logged 04:00 Atorvastatin (Lipitor) PHA 09/05/24 Logged 22:00 Budesonide PHA 09/05/24 Logged (Inhalation) 22:00 * Cardiology Consult CONS 09/05/24 Transmitted 15:52 Date of Service: Sep 05, 2024 Billing Provider: YULIA WEBB NP Common Visit Codes: [id number] CARE 30-74 MIN YULIA WEBB NP Sep 05, 2024 16:07
--- NOTE | 2024-09-05 16:43 | DVHINCON2 ---
Date Seen: Sep 05, 2024 Referring Physician WENDY Castelan Reason for Consultation Chest pain s/p SAVR History of Present Illness This is a 63-year-old female patient who presents to the emergency room with chief complaint of chest pain. The patient reports that the chest pain began yesterday at approximately 10:00 a.m.. She reports that it was unprovoked, pressure-like in nature, left-sided with radiation to shoulder. She reports aggravating factors include taking deep breaths. She reports that she took aspirin with no relief. She decided to try methocarbamol, and reports that it helped. Today, the patient reports awakening with chest pain once again. This time, she describes a different nature. She describes it as unprovoked, stabbing in nature, and still left-sided radiation to her shoulder. Chest pain reproducible upon examination. Initial twelve lead electrocardiogram reveals sinus tachycardia without any significant ST segment changes. Serial troponin levels have been negative. Significant past medical history includes severe ao rtic valve stenosis status post surgical aortic valve replacement (bioprosthetic), hyperlipidemia, COPD on 2 L home O2, myotonic muscular dystrophy, and previous tobacco use. 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 Past Medical History Past medical history reviewed. No other significant than mentioned above. Past Surgical History Bioprosthetic Surgical aortic valve replacement (SAVR) in March 2024 Hysterectomy Family History: FH: CHF (congestive heart failure) G8 MOTHER FH: aneurysm G8 MOTHER FH: muscular dystrophy G8 FATHER Hypertension G8 MOTHER Family History Family history reviewed. Social History Patient has a five pack-year history, quit smoking in 2020 Patient denies any alcohol use Patient denies any illicit drug use Allergies: Coded Allergies: NO KNOWN ALLERGIES (Unverified , 02/17/23) Home Meds Active Scripts Prednisone (Prednisone) 20 Mg Tab, 20 MG PO BID for 6 Days, #6 MG 10 mg twice a day x 3 days 10 mg once a day x 3 days Prov:YULIA CASTELAN CHANGE ADVISOR 09/05/23 Doxycycline (Monohydrate) (Doxycycline) 100 Mg Cap, 100 MG PO BID for 7 Days, #14 CAP Prov:YULIA CASTELAN CHANGE ADVISOR 09/05/23 Acetaminophen (Tylenol 8 Hour Arthritis) 650 Mg Tab, 650 MG PO TID, #30 TAB Prov:CAMILLE HERNANDEZ 02/17/23 Methocarbamol (Methocarbamol) 750 Mg Tab, 750 MG PO BID, #20 TAB Prov:CAMILLE HERNANDEZ 02/17/23 Reported Medications Atorvastatin Calcium (ATORVASTATIN CALCIUM) 10 Mg Tab, PO 09/05/24 Home Meds Home medications reviewed. Current Medications Current Medications Medications (Trade) Dose Ordered Sig/Atilio Route PRN Reason Start Time Stop Time Status Last Admin Nitroglycerin (Ntrostat Sublingual) 0.4 mg Q5MINP PRN SL FOR CHEST PAIN 09/05/24 15:45 Morphine Sulfate 2 mg Q30M PRN IV FOR CHEST PAIN 09/05/24 15:45 Morphine Sulfate 1 mg Q4HPRN PRN IV SEVERE PAIN (7-10 PAIN SCALE) 09/05/24 16:00 Acetaminophen/ Hydrocodone Bitart ([place] 5/325MG Tab) 1 tab Q6HPRN PRN PO MODERATE PAIN (4-6 PAIN SCALE) 09/05/24 16:00 Acetaminophen (Tylenol Tablet Or Capsule) 500 mg Q8HP PRN PO PAIN SCALE 1-3 OR TEMP>100.4 09/05/24 16:00 Ondansetron HCl (Zofran) 4 mg Q6HP PRN IV NAUSEA / VOMITING 09/05/24 16:00 Docusate Sodium (Colace Capsule) 100 mg BID PRN PO FOR CONSTIPATION 09/05/24 16:00 Albuterol (Ventolin Medneb) 2.5 mg Q6H NEB 09/05/24 16:00 09/05/24 16:07 DC Ipratropium [place] (Atrovent Medneb) 0.5 mg Q6H NEB 09/05/24 16:00 09/05/24 16:07 DC Atorvastatin Calcium (Lipitor) 40 mg HS PO 09/05/24 22:00 Budesonide (Pulmicort) 0.25 mg BID NEB 09/05/24 22:00 Albuterol (Ventolin Medneb) 2.5 mg Q6HR NEB 09/05/24 18:00 Ipratropium [place] (Atrovent Medneb) 0.5 mg Q6HR NEB 09/05/24 18:00 Review of Systems Constitutional: No symptom reported Ears, Nose, & Throat: No symptom reported Eyes: No symptom reported Neurological: No symptoms reported Pulmonary/Respiratory: No symptoms reported Cardiovascular: Chest pain Gastrointestinal: No symptom reported Genitourinary: No symptom reported Musculoskeletal: No symptom reported Skin: No symptom reported Psychiatric: No symptom reported Endocrine: No symptom reported Hematologic/Lymphatic: No symptom reported Vital Signs Vital Signs Date Time Temp Pulse Resp B/P (MAP) Pulse Ox O2 Delivery O2 Flow Rate FiO2 09/05/24 16:20 98.5 96 23 115/71 96 2.5 98.5 09/05/24 11:25 Nasal Cannula* 28 Physical Exam General Appearance: Cooperative. Well-developed. Well-nourished. No acute distress. Pulmonary/Respiratory: Clear, bilateral breaths sounds. Cardiovascular/Chest: Regular rate and rhythm. Peripheral Pulses: 2+ Radial (R). 2+ Radial (L). 2+ Pedal (R). 2+ Pedal (L) Abdominal Exam: Normal bowel sounds. Ankle Exam: Negative ankle edema Lower extremities: Negative lower extremity edema Neuro/Mental Status: A/OX4, coherent. Thoughts/Psych: Normal thought pattern. Appropriate mood and affect. Good judgment and insight. Appearance: No acute distress. Skin Exam: Midsternal scar. Skin warm and dry Labs/Diagnostic Data Labs Test 09/05/24 14:37 09/05/24 11:30 Range/Units Troponin I High Sensitivity < 3 L </=34 ng/L White Blood Count 16.6 H 4.4-10.8 10^3/uL Red Blood Count 4.88 4.0-5.20 10^6/uL Hemoglobin 13.8 12.2-16.2 g/dL Hematocrit 41.7 36.0-46.0 % Mean Corpuscular Volume 85.6 80.0-100.0 fL Mean Corpuscular Hemoglobin 28.3 28.0-32.0 pg Mean Corpuscular Hemoglobin Concent 33.0 32.0-36.0 g/dL Red Cell Distribution Width 15.8 H 11.8-14.3 % Platelet Count 470 H 140-450 10^3/uL Mean Platelet Volume 6.6 L 6.9-10.8 fL Neutrophils (%) (Auto) 37.0-80.0 % Lymphocytes (%) (Auto) 10.0-50.0 % Monocytes (%) (Auto) 0.0-12.0 % Basophils (%) (Auto) 0.0-2.0 % Neutrophils # (Auto) 1.6-8.6 10 ^3/uL Lymphocytes # (Auto) 0.4-5.4 10 ^3/uL Monocytes # (Auto) 0-1.3 10 ^3/uL Differential Total Cells Counted 100.0 100 Neutrophils % (Manual) 69 37.0-80.0 Band Neutrophils % (Manual) 2 Lymphocytes % (Manual) 13 10.0-50.0 Monocytes % (Manual) 16 H 0-12 Eosinophils % (Manual) 0 0-7 Basophils % (Manual) 0 0.0-2.0 Metamyelocytes % (manual) 0 Myelocytes % (Manual) 0 Promyelocytes % (Manual) 0 Blast Cells % (Manual) 0 Reactive Lymphocytes 0 Platelet Estimate Increased Prothrombin Time 11.9 H 9.3-11.8 sec Prothrombin Time INR 1.13 0.9-1.15 Activated Partial Thromboplast Time 31.9 24.5-34.5 SEC Urine Color Colorless Yellow Urine Clarity Clear Clear Urine pH 6.0 5.0-9.0 Urine Specific [place] 1.010 1.001-1.035 Urine Protein Negative Negative Urine Ketones Negative Negative Urine Blood Negative Negative /uL Urine Nitrite 2+ H Negative Urine Bilirubin Negative Negative Urine Urobilinogen Normal Negative mg/dL Urine Leukocyte Esterase Trace Negative /uL Urine RBC <1 0 - 4 /hpf Urine WBC 5 0 - 5 /hpf Urine Squamous Epithelial Cells None seen <5 /hpf Urine Bacteria Few H None Seen /hpf Urine Glucose Normal Normal mg/dL Sodium Level 137 136-145 mmol/L Potassium Level 4.1 3.5-5.1 mmol/L Chloride Level 107 98-107 mmol/L Carbon Dioxide Level 23 20-31 mmol/L Anion Gap 7 5-15 Blood Urea Nitrogen 7 L 9-23 mg/dL Creatinine 0.35 L 0.550-1.02 mg/dL Glomerular Filtration Rate Calc 116 >90 mL/min BUN/Creatinine Ratio 20.0 10.0-20.0 Serum Glucose 82 74-106 mg/dL Calcium Level 9.7 8.7-10.4 mg/dL Total Bilirubin 0.2 0.2-1.0 mg/dL Aspartate Amino Transferase (AST) 20 13-40 U/L Alanine Aminotransferase (ALT) 12 7-40 U/L Alkaline Phosphatase 138 H 46-116 U/L B-Type Natriuretic Peptide 22.65 0-100 pg/mL Total Protein 5.1 L 5.7-8.2 g/dL Albumin 3.4 3.2-4.8 g/dL Assessment Noncardiac chest pain Severe aortic valve stenosis status post surgical aortic valve replacement (bioprosthetic) in March 2024 Rule out structural heart disease Acute hypoxic respiratory failure Hyperlipidemia ?Pneumonia COPD Myotonic muscular dystrophy History of tobacco use Plan/Recommendation We will continue following plan/recommendations (Dr. Alejo): Patient seen and examined at bedside with . We will obtain a transthoracic echocardiogram to evaluate cardiac function. Given clinical presentation, negative troponin level, unremarkable twelve lead electrocar diogram and low HEART score (2 points), doubt ACS. As per Dr. Alejo, the patient recently had a coronary angiogram (with Dr. Alejo in March 2024 at [facility]), which revealed no significant coronary artery disease. In the setting of an unremarkable echocardiogram, there is no further inpatient cardiac workup indicated at this time. Thank you for allowing us to care for this patient. Oniel reis call with any questions or concerns. Critical care time spent: 40 minutes This medical document was created using an electronic medical record system with voice recognition software and computerized dictation system. Although this document has been carefully reviewed, there might still be some phonetic and typographical errors. Occasional wrong-word or ``sound-alike substitutions may have occurred due to the inherent limitations of voice recognition software. These areas are purely typographical due to imperfections of the software programs and do not reflect any compromise in the patient's medical care. Pl kenneth read the chart carefully and recognize, using context, where these substitutions have occurred. Plan discussed with: Patient Date of Service: Sep 05, 2024 Billing Provider: CHAIM BARROSO Cardiology Common Codes: [id number] INP/OBS CARE (High) Cardiology Consultation Codes: [id number] CONSULT <45MIN CHAIM BARROSO Sep 05, 2024 16:43
[2024-09-05 18:31] LABS: Erythrocyte Sedimentation Rate 4 mm/hr (0-20)
[2024-09-05] MEDS: IPRATROPIUM BROM 0.5 MG/2.5ML INH SOL NEB SCH (18:33)
[2024-09-05] MEDS: BUDESONIDE (INHALATION) 0.5 MG/2 ML NEB NEB SCH (18:33)
[2024-09-05] MEDS: ALBUTEROL SULF 2.5 MG/0.5ML(0.5%) NEB SOLN NEB SCH (18:33)
--- NOTE | 2024-09-05 19:15 | DVHSR ---
APPROVED REPORT EXAM: Two-dimensional and M-mode echocardiogram with Doppler and color Doppler. Blood Pressure: 115/71 mmHg INDICATION Chest Pain CHF? TAVR? Surgery/Intervention Valve Replacement: Type: AV RISK FACTORS Height: 61, Weight: 130 DIMENSIONS LVDd (3.8-5.7cm)LA (2D)3.4 (1.9-4.0cm)Aortic Root (2.0-3.7cm) EF (%) 58.0 (55-70%)Rt. Atrium3.5 (1.9-4.0cm)Asc. Aorta cm Mitral Valve MitralMitral Stenosis E wave0.68m/sMV Mean GR.mmHg A wave1.11m/sMV Peak GR.mmHg E/A ratio0.62D MVAcm2 DECEL [id number] 1/2 Lpws04th IVRTmsDop MVA3.38cm2 Aortic Valve Aortic ValveAortic Stenosis V11.34m/Sofiya Mean GR.15mmHg V22.89m/Sofiya Peak GR.33mmHg Pulmonic Valve V21.09m/s Tricuspid Valve TR Velocity2.29m/s [id number] Other Information Technically limited study due to body habitus. Conclusion MILD LVH AND MILD LV DIASTOLIC DYSFUNCTION LV EJECTION FRACTION IS 70% DYSKINESIS OF IVS NORMAL VALVES BOVINE AORTIC VALVE FUNCTIONING WELL NO THROMBUS,VEGETATION NO EFFUSION MODERATELY DILATED RV
[2024-09-05] MEDS: HYDROcodone-ACET 5/325MG TAB PO PRN (19:17)
[2024-09-05 20:11] LABS: COVID19 ANTIGEN SOFIA FIA NEGATIVE (NEGATIVE); Rapid Influenza A Negative (Negative); Rapid Influenza B Negative (Negative)
[2024-09-05] MEDS: CALCIUM CARB 500 MG CHEW TAB PO PRN (22:01)
[2024-09-05] MEDS: ATORVASTATIN 20 MG TAB PO SCH (22:01)
[2024-09-05] MEDS ORDERED: ASPI-543 PO (23:38)
--- NOTE | 2024-09-05 23:42 | DVHINCON2 ---
Date Seen: Sep 05, 2024 Referring Physician Flip Reason for Consultation Chest pain, s/p SVAR History of Present Illness This is a 63 year old female with a PMH of severe aortic valve stenosis status post surgical aortic valve replacement (bioprosthetic), hyperlipidemia, COPD on 2 L home O2, myotonic muscular dystrophy, and previous tobacco use who presents to the ED with a complaint of chest pain. The patient reports that the chest pain began yesterday at approximately 10:00 a.m. She reports that it was unprovoked, pressure-like in nature, left-sided with radiation to shoulder. She reports aggravating factors include taking deep breaths. She reports that she took aspirin with no relief. She decided to try methocarbamol, and reports that it helped. Today, the patient reports awakening with chest pain once again. This time, she describes a different nature. She describes it as unprovoked, stabbing in nature, and still left-sided radiation to her shoulder. Chest pain reproducible upon examination. Initial twelve lead electrocardiogram reveals sinus tachycardia without any significant ST segment changes. Serial troponin levels have been negative. 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 Chest x-ray shows diffuse bilateral interstitial opacities could be due to pulmonary vascular congestion, atypical infection, or pneumonitis. Region traction/scarring/ atelectasis of the mid left lung zone. Blunted left costophrenic angle may be due to small left pleural effusion versus left basilar infiltrate/atelectasis. Patient was admitted to the hospital. I am asked to consult on this patient. Family History: FH: CHF (congestive heart failure) G8 MOTHER FH: aneurysm G8 MOTHER FH: muscular dystrophy G8 FATHER Hypertension G8 MOTHER Allergies: Coded Allergies: NO KNOWN ALLERGIES (Unverified , 02/17/23) Home Meds Active Scripts Prednisone (Prednisone) 20 Mg Tab, 20 MG PO BID for 6 Days, #6 MG 10 mg twice a day x 3 days 10 mg once a day x 3 days Prov:YULIA WEBB ASBESTOS WIRE FINISHER 09/05/23 Doxycycline (Monohydrate) (Doxycycline) 100 Mg Cap, 100 MG PO BID for 7 Days, #14 CAP Prov:YULIA WEBB ASBESTOS WIRE FINISHER 09/05/23 Acetaminophen (Tylenol 8 Hour Arthritis) 650 Mg Tab, 650 MG PO TID, #30 TAB Prov:CAMILLE HERNANDEZ 02/17/23 Methocarbamol (Methocarbamol) 750 Mg Tab, 750 MG PO BID, #20 TAB Prov:CAMILLE HERNANDEZ 02/17/23 Reported Medications Aspirin (Aspir-Low) 81 Mg Tab, 81 MG PO DAILY for 30 Days, MG 09/05/24 Atorvastatin Calcium (ATORVASTATIN CALCIUM) 10 Mg Tab, PO 09/05/24 Current Medications Current Medications Medications (Trade) Dose Ordered Sig/Atilio Route PRN Reason Start Time Stop Time Status Last Admin Nitroglycerin (Ntrostat Sublingual) 0.4 mg Q5MINP PRN SL FOR CHEST PAIN 09/05/24 15:45 Morphine Sulfate 2 mg Q30M PRN IV FOR CHEST PAIN 09/05/24 15:45 Morphine Sulfate 1 mg Q4HPRN PRN IV SEVERE PAIN (7-10 PAIN SCALE) 09/05/24 16:00 Acetaminophen/ Hydrocodone Bitart ([place] 5/325MG Tab) 1 tab Q6HPRN PRN PO MODERATE PAIN (4-6 PAIN SCALE) 09/05/24 16:00 Acetaminophen (Tylenol Tablet Or Capsule) 500 mg Q8HP PRN PO PAIN SCALE 1-3 OR TEMP>100.4 09/05/24 16:00 Ondansetron HCl (Zofran) 4 mg Q6HP PRN IV NAUSEA / VOMITING 09/05/24 16:00 Docusate Sodium (Colace Capsule) 100 mg BID PRN PO FOR CONSTIPATION 09/05/24 16:00 Albuterol (Ventolin Medneb) 2.5 mg Q6H NEB 09/05/24 16:00 09/05/24 16:07 DC Ipratropium [place] (Atrovent Medneb) 0.5 mg Q6H NEB 09/05/24 16:00 09/05/24 16:07 DC Atorvastatin Calcium (Lipitor) 40 mg HS PO 09/05/24 22:00 Budesonide (Pulmicort) 0.25 mg BID NEB 09/05/24 22:00 Albuterol (Ventolin Medneb) 2.5 mg Q6HR NEB 09/05/24 18:00 Ipratropium [place] (Atrovent Medneb) 0.5 mg Q6HR NEB 09/05/24 18:00 Review of Systems Constitutional: No symptom reported Ears, Nose, & Throat: No symptom reported Eyes: No symptom reported Neurological: No symptoms reported Pulmonary/Respiratory: No symptoms reported Cardiovascular: Chest pain Gastrointestinal: No symptom reported Genitourinary: No symptom reported Musculoskeletal: No symptom reported Skin: No symptom reported Psychiatric: No symptom reported Endocrine: No symptom reported Hematologic/Lymphatic: No symptom reported Vital Signs Vital Signs Date Time Temp Pulse Resp B/P (MAP) Pulse Ox O2 Delivery O2 Flow Rate FiO2 09/05/24 16:20 98.5 96 23 115/71 96 2.5 98.5 09/05/24 11:25 Nasal Cannula* 28 Physical Exam GENERAL: Awake, alert, oriented. LUNGS: Clear. CARDIOVASCULAR: Heart sounds are good. ABDOMEN: Soft. Labs/Diagnostic Data Labs Test 09/05/24 17:05 09/05/24 14:37 09/05/24 14:31 09/05/24 11:30 Range/Units Troponin I High Sensitivity < 3 L </=34 ng/L C-Reactive Protein High Sensitivity 5.59 H <1.0 mg/dL White Blood Count 16.6 H 4.4-10.8 10^3/uL Red Blood Count 4.88 4.0-5.20 10^6/uL Hemoglobin 13.8 12.2-16.2 g/dL Hematocrit 41.7 36.0-46.0 % Mean Corpuscular Volume 85.6 80.0-100.0 fL Mean Corpuscular Hemoglobin 28.3 28.0-32.0 pg Mean Corpuscular Hemoglobin Concent 33.0 32.0-36.0 g/dL Red Cell Distribution Width 15.8 H 11.8-14.3 % Platelet Count 470 H 140-450 10^3/uL Mean Platelet Volume 6.6 L 6.9-10.8 fL Neutrophils (%) (Auto) 37.0-80.0 % Lymphocytes (%) (Auto) 10.0-50.0 % Monocytes (%) (Auto) 0.0-12.0 % Basophils (%) (Auto) 0.0-2.0 % Neutrophils # (Auto) 1.6-8.6 10 ^3/uL Lymphocytes # (Auto) 0.4-5.4 10 ^3/uL Monocytes # (Auto) 0-1.3 10 ^3/uL Differential Total Cells Counted 100.0 100 Neutrophils % (Manual) 69 37.0-80.0 Band Neutrophils % (Manual) 2 Lymphocytes % (Manual) 13 10.0-50.0 Monocytes % (Manual) 16 H 0-12 Eosinophils % (Manual) 0 0-7 Basophils % (Manual) 0 0.0-2.0 Metamyelocytes % (manual) 0 Myelocytes % (Manual) 0 Promyelocytes % (Manual) 0 Blast Cells % (Manual) 0 Reactive Lymphocytes 0 Platelet Estimate Increased Prothrombin Time 11.9 H 9.3-11.8 sec Prothrombin Time INR 1.13 0.9-1.15 Activated Partial Thromboplast Time 31.9 24.5-34.5 SEC Urine Color Colorless Yellow Urine Clarity Clear Clear Urine pH 6.0 5.0-9.0 Urine Specific [place] 1.010 1.001-1.035 Urine Protein Negative Negative Urine Ketones Negative Negative Urine Blood Negative Negative /uL Urine Nitrite 2+ H Negative Urine Bilirubin Negative Negative Urine Urobilinogen Normal Negative mg/dL Urine Leukocyte Esterase Trace Negative /uL Urine RBC <1 0 - 4 /hpf Urine WBC 5 0 - 5 /hpf Urine Squamous Epithelial Cells None seen <5 /hpf Urine Bacteria Few H None Seen /hpf Urine Glucose Normal Normal mg/dL Sodium Level 137 136-145 mmol/L Potassium Level 4.1 3.5-5.1 mmol/L Chloride Level 107 98-107 mmol/L Carbon Dioxide Level 23 20-31 mmol/L Anion Gap 7 5-15 Blood Urea Nitrogen 7 L 9-23 mg/dL Creatinine 0.35 L 0.550-1.02 mg/dL Glomerular Filtration Rate Calc 116 >90 mL/min BUN/Creatinine Ratio 20.0 10.0-20.0 Serum Glucose 82 74-106 mg/dL Calcium Level 9.7 8.7-10.4 mg/dL Total Bilirubin 0.2 0.2-1.0 mg/dL Aspartate Amino Transferase (AST) 20 13-40 U/L Alanine Aminotransferase (ALT) 12 7-40 U/L Alkaline Phosphatase 138 H 46-116 U/L B-Type Natriuretic Peptide 22.65 0-100 pg/mL Total Protein 5.1 L 5.7-8.2 g/dL Albumin 3.4 3.2-4.8 g/dL Assessment Noncardiac chest pain. Severe aortic valve stenosis status post surgical aortic valve replacement (bioprosthetic) in March 2024. Rule out structural heart disease. Acute hypoxic respiratory failure. Hyperlipidemia. ?Pneumonia. COPD. Myotonic muscular dystrophy. History of tobacco use. Plan/Recommendation I agree with your ongoing assessment and care of plan. Patient has been seen by Shyanne Riggins NP on my behalf, her/him and I discussed the plan with the patient. The patient recently had a coronary angiogram (in March 2024 at [facility]), which revealed no significant coronary artery disease. Echocardiogram to evaluate cardiac function. Morphine and [place] for pain management. Lipitor. Additional plan as per the hospital course. A total of 45 minutes was spent reviewing the patient record, examining the patient, making a diagnostic and therapeutic plan, discussing this plan with medical personnel, following up on diagnostic studies and following the patient for clinical stability excluding any and all procedures. At least 50% of this time was spent in direct, [id number] contact. Plan discussed with: Patient Date of Service: Sep 05, 2024 Billing Provider: MARCELA NORTON MD Cardiology Common Codes: [id number] INP/OBS CARE (High) Cardiology Consultation Codes: [id number] CONSULT <45MIN MARCELA NORTON MD Sep 05, 2024 17:39
[2024-09-06] VITALS (15 sets, daily range): BP systolic 102–123; BP diastolic 73–81; PULSE 88–109; RESP 16–20; TEMP 97.7–99; O2SAT 90–97
--- NOTE | 2024-09-06 05:30 | DVH ---
CHEST RADIOGRAPH Indication: chf Technique: Single frontal view of the chest was obtained Comparison: XY CHEST PORTABLE on DOS: 09/05/24, XY CHEST PORTABLE on DOS: 09/05/23, XY CHEST PORTABLE on DOS: 09/04/23 IMPRESSION: Normal heart size with median sternotomy wires. Small left pleural effusion. Coarsened interstitial markings. No pneumothorax. No significant interval change.
--- NOTE | 2024-09-06 18:46 | DVHPN2 ---
Subjective Assuming the care of the patient from today onwards. Patient came in with the chest pain patient does have known history of chronic respiratory failure on home O2 for COPD. Patient has had elevated D-dimer CT angio will be ordered to rule out pulmonary embolism. Reviewed: Care Plan Changes from previous H/P or p: No Changes Eyes: No Pain, No Vision change, No Conjunctivae inflammation, No Eyelid inflammation, No Other, No Redness ENT: No Ear pain, No Ear discharge, No Nose pain, No Nose discharge, No Nose congestion, No Mouth pain, No Mouth swelling, No Throat pain, No Throat swelling, No Other Cardiovascular: Chest Pain Respiratory: Shortness of breath Gastrointestinal: No Nausea, No Vomiting, No Abdominal Pain, No Diarrhea, No Constipation, No Melena, No Hematochezia, No Other Genitourinary: No Dysuria, No Frequency, No Incontinence, No Hematuria, No Retention, No Other Musculoskeletal: No other, No neck pain, No shoulder pain, No arm pain, No back pain, No hand pain, No leg pain, No foot pain Skin: No Rash, No Lesions, No Jaundice, No Bruising, No Other Objective Vitals Vital Signs Date Time Temp Pulse Resp B/P (MAP) Pulse Ox O2 Delivery O2 Flow Rate FiO2 09/06/24 17:44 98.3 109 20 118/76 (90) 92 98.3 09/06/24 11:11 Nasal Cannula 2.0 09/06/24 11:11 28 Intake/Output Intake and Output 09/06/24 07:00 Intake Total 300 ml Balance 300 ml Intake Oral 250 ml IV Total 50 ml # Voids 1 Exam HEENT pupils are reactive Neck is supple CV is S1-S2 regular rate and rhythm Respiratory bilateral clear GI positive bowel sound Extremity no edema MACHINE 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 MARKER no motor deficit Medications Current Medications Medications Dose Ordered Sig/Atilio Route Start Time Stop Time Status Last Admin Dose Admin Nitroglycerin 0.4 mg Q5MINP PRN SL 09/05/24 15:45 Morphine Sulfate 2 mg Q30M PRN IV 09/05/24 15:45 Morphine Sulfate 1 mg Q4HPRN PRN IV 09/05/24 16:00 Acetaminophen/ Hydrocodone Bitart 1 tab Q6HPRN PRN PO 09/05/24 16:00 09/06/24 18:27 1 TAB Acetaminophen 500 mg Q8HP PRN PO 09/05/24 16:00 Ondansetron HCl 4 mg Q6HP PRN IV 09/05/24 16:00 Docusate Sodium 100 mg BID PRN PO 09/05/24 16:00 Atorvastatin Calcium 40 mg HS PO 09/05/24 22:00 09/05/24 22:01 40 MG Budesonide 0.25 mg BID NEB 09/05/24 22:00 09/06/24 06:34 0.25 MG Albuterol 2.5 mg Q6HR NEB 09/05/24 18:00 09/06/24 11:11 2.5 MG Ipratropium [place] 0.5 mg Q6HR NEB 09/05/24 18:00 09/06/24 11:11 0.5 MG Calcium Carbonate 500 mg Q6HPRN PRN PO 09/05/24 21:45 09/05/24 22:01 500 MG Laboratory Results Laboratory Tests 09/05/24 11:30 Urinalysis Test 09/05/24 11:30 Urine Color Colorless (Yellow) Urine Clarity Clear (Clear) Urine pH 6.0 (5.0-9.0) Urine Specific [place] 1.010 (1.001-1.035) Urine Protein Negative (Negative) Urine Ketones Negative (Negative) Urine Blood Negative /uL (Negative) Urine Nitrite 2+ (Negative) H Urine Bilirubin Negative (Negative) Urine Urobilinogen Normal mg/dL (Negative) Urine Leukocyte Esterase Trace /uL (Negative) Urine RBC <1 /hpf (0 - 4) Urine WBC 5 /hpf (0 - 5) Urine Squamous Epithelial Cells None seen /hpf (<5) Urine Bacteria Few /hpf (None Seen) H Urine Glucose Normal mg/dL (Normal) Microbiology Microbiology Date/Time Source Procedure Growth Status 09/05/24 11:30 Voided Urine Urine Culture - Preliminary Resulted Assessment/Plan Assessment/Plan 63-year-old female with a known history of COPD, chronic respiratory failure on home O2, previous history of open heart surgery for severe aortic stenosis status post TAVR presented to the hospital with chest pain found to have 1. Chest pain rule out NH 2. Acute on chronic respiratory failure secondary to underlying COPD, rule out pulmonary embolism 3. Elevated D-dimer is rule out PE 4. Previous history of open heart surgery for TAVR -repeat BMP, CT angio to rule out pulmonary-embolism Follow up Cardiology recommendations. Plan discussed with: Patient My Orders Orders - ADILENE ROSS MD Procedure Category Date Status Time Basic Metabolic Panel LAB 09/06/24 Logged 18:[address] 09/06/24 Logged Contrast 18:41 Bilat Lower Dvt US 09/06/24 Logged 18:43 Basic Metabolic Panel LAB 09/07/24 Verified 06:00 Complete Blood Count LAB 09/07/24 Verified 06:00 Magnesium LAB 09/07/24 Verified 06:00 Date of Service: Sep 06, 2024 Billing Provider: ADILENE ROSS MD Common Visit Codes: [id number] INP/OBS CARE(MOD) ADILENE ROSS MD Sep 06, 2024 18:46
--- NOTE | 2024-09-06 19:26 | DVH ---
Bilateral lower extremity venous duplex Clinical History: For DVT Comparison: None Technique: Duplex Doppler evaluation of the deep venous systems of both lower extremities from the common femora l veins to the popliteal veins including color Doppler and spectral/pulsed waveform analysis was perf ormed. Findings: RIGHT SIDE: The common femoral vein demonstrates appropriate compressibility and waveform variability. There is compressibility/patency of the great saphenous vein at the proximal thigh. The femoral vein demonstrates appropriate compressibility and waveform variability. The deep femoral vein demonstrates appropriate compressibility and waveform variability. The popliteal vein demonstrates appropriate compressibility and waveform variability. There is normal compressibility at the tibioperoneal trunk. LEFT SIDE: The common femoral vein demonstrates appropriate compressibility and waveform variability. There is compressibility/patency of the great saphenous vein at the proximal thigh. The femoral vein demonstrates appropriate compressibility and waveform variability. The deep femoral vein demonstrates appropriate compressibility and waveform variability. The popliteal vein demonstrates appropriate compressibility and waveform variability. There is normal compressibility at the tibioperoneal trunk. Impression: 1. No right or left femoropopliteal venous thrombosis.
[2024-09-06 19:50] LABS: Chloride 102 mmol/L (98-107); Potassium 3.8 mmol/L (3.5-5.1)
[2024-09-06 19:51] LABS: Anion Gap 5 (5-15); Calcium 9.9 mg/dL (8.7-10.4); Carbon Dioxide 28 mmol/L (20-31)
[2024-09-06 19:56] LABS: BUN/Creatinine Ratio 16.2 (10.0-20.0); Blood Urea Nitrogen 6 mg/dL (9-23); Glucose 125 mg/dL (74-106); Sodium 135 mmol/L (136-145)
[2024-09-06] MEDS: SODIUM CHLORIDE 0.9% 1,000 ML IV SCH (20:17)
--- NOTE | 2024-09-06 23:35 | DVHPN2 ---
Progress Note - Dictate Date Seen: Sep 06, 2024 Medical Necessity Reason Pt with a Central, PICC or Fol: No Subjective Patient was seen and evaluated in follow up. Patient is complaining of generalized pain. BLE Venous Duplex is negative for femoropopliteal venous thrombosis. CTA chest is pending. vital signs Vital Sign Date Time Temp Pulse Resp B/P (MAP) Pulse Ox O2 Delivery O2 Flow Rate FiO2 09/06/24 19:28 100 18 92 09/06/24 19:20 Nasal Cannula 2.0 09/06/24 19:20 28 09/06/24 17:44 98.3 118/76 (90) 98.3 Total Intake and Output 09/05/24 09/05/24 09/06/24 15:00 23:00 07:00 Intake Total 50 ml 250 ml Balance 50 ml 250 ml medications Current Medications Medications Dose Ordered Sig/Atilio Route Start Time Stop Time Status Last Admin Dose Admin Nitroglycerin 0.4 mg Q5MINP PRN SL 09/05/24 15:45 Morphine Sulfate 2 mg Q30M PRN IV 09/05/24 15:45 Morphine Sulfate 1 mg Q4HPRN PRN IV 09/05/24 16:00 Acetaminophen/ Hydrocodone Bitart 1 tab Q6HPRN PRN PO 09/05/24 16:00 09/06/24 18:27 1 TAB Acetaminophen 500 mg Q8HP PRN PO 09/05/24 16:00 Ondansetron HCl 4 mg Q6HP PRN IV 09/05/24 16:00 Docusate Sodium 100 mg BID PRN PO 09/05/24 16:00 Atorvastatin Calcium 40 mg HS PO 09/05/24 22:00 09/06/24 21:34 40 MG Budesonide 0.25 mg BID NEB 09/05/24 22:00 09/06/24 19:20 0.25 MG Albuterol 2.5 mg Q6HR NEB 09/05/24 18:00 09/06/24 19:20 2.5 MG Ipratropium [place] 0.5 mg Q6HR NEB 09/05/24 18:00 09/06/24 19:20 0.5 MG Calcium Carbonate 500 mg Q6HPRN PRN PO 09/05/24 21:45 09/06/24 20:17 500 MG Sodium Chloride 1,000 ml @ 100 mls/hr Q10H IV 09/06/24 19:00 09/06/24 20:17 100 MLS/HR objective GENERAL: Awake, alert, oriented. LUNGS: Clear. CARDIOVASCULAR: Heart sounds are good. ABDOMEN: Soft. laboratory and microbiology Laboratory Tests 09/06/24 19:13 09/05/24 11:30 Test 09/06/24 19:13 Range/Units Serum Glucose 125 H 74-106 mg/dL Problem List Noncardiac chest pain. Severe aortic valve stenosis status post surgical aortic valve replacement (bioprosthetic) in March 2024. Rule out structural heart disease. Acute hypoxic respiratory failure. Hyperlipidemia. ?Pneumonia. COPD. Myotonic muscular dystrophy. History of tobacco use. Assessment/Plan Continued all current supportive medical care. Morphine and [place] for pain management. Lipitor. Nitro SL. Additional plan as per the hospital course. Plan discussed with: Patient MARCELA NORTON MD Sep 06, 2024 22:15
[2024-09-07] VITALS (15 sets, daily range): BP systolic 98–136; BP diastolic 61–76; PULSE 89–110; RESP 16–18; TEMP 98–98.4; O2SAT 90–100
[2024-09-07 06:16] LABS: Hematocrit 41.1 % (36.0-46.0); Hemoglobin 13.9 g/dL (12.2-16.2); Mean Corpuscular Hemoglobin 28.9 pg (28.0-32.0); Mean Corpuscular Hgb Conc. 33.8 g/dL (32.0-36.0); Mean Corpuscular Volume 85.4 fL (80.0-100.0); Platelet Count (auto) 437 10^3/uL (140-450); Red Blood Cells 4.81 10^6/uL (4.0-5.20); Red Cell Distribution Width 15.5 % (11.8-14.3); White Blood Cell 13.2 10^3/uL (4.4-10.8)
[2024-09-07 06:26] LABS: Chloride 105 mmol/L (98-107); Potassium 3.5 mmol/L (3.5-5.1); Sodium 138 mmol/L (136-145)
[2024-09-07 06:27] LABS: Anion Gap 5 (5-15); Carbon Dioxide 28 mmol/L (20-31)
[2024-09-07 06:28] LABS: Calcium 9.8 mg/dL (8.7-10.4)
[2024-09-07 06:33] LABS: Glucose 98 mg/dL (74-106); Magnesium 1.8 mg/dL (1.6-2.6)
[2024-09-07 06:35] LABS: Basophils % (manual) 0 (0.0-2.0); Blast Cells 0; Metamyelocytes % 0; Myelocytes % 0; Promyelocytes % 0; Reactive Lymphocytes 0
[2024-09-07 06:42] LABS: Blood Urea Nitrogen 6 mg/dL (9-23)
[2024-09-07 07:50] LABS: Band Neutrophils % (manual) 1; Eosinophils % (manual) 6 (0-7); Lymphocytes % (manual) 12 (10.0-50.0); Monocytes % (manual) 16 (0-12)
[2024-09-07 07:51] LABS: Platelet Estimate Adequate
--- NOTE | 2024-09-07 15:49 | DVHPN2 ---
Subjective Patient came in with the chest pain patient does have known history of chronic respiratory failure on home O2 for COPD. Patient has had elevated D-dimer CT angio will be ordered to rule out pulmonary embolism. Reviewed: Care Plan Changes from previous H/P or p: No Changes Eyes: No Pain, No Vision change, No Conjunctivae inflammation, No Eyelid inflammation, No Other, No Redness ENT: No Ear pain, No Ear discharge, No Nose pain, No Nose discharge, No Nose congestion, No Mouth pain, No Mouth swelling, No Throat pain, No Throat swelling, No Other Cardiovascular: Chest Pain Respiratory: Shortness of breath Gastrointestinal: No Nausea, No Vomiting, No Abdominal Pain, No Diarrhea, No Constipation, No Melena, No Hematochezia, No Other Genitourinary: No Dysuria, No Frequency, No Incontinence, No Hematuria, No Retention, No Other Musculoskeletal: No other, No neck pain, No shoulder pain, No arm pain, No back pain, No hand pain, No leg pain, No foot pain Skin: No Rash, No Lesions, No Jaundice, No Bruising, No Other Objective Vitals Vital Signs Date Time Temp Pulse Resp B/P (MAP) Pulse Ox O2 Delivery O2 Flow Rate FiO2 09/07/24 13:00 98.4 102 18 105/75 (85) 93 98.4 09/07/24 12:03 Nasal Cannula 2.0 09/07/24 12:03 28 Intake/Output Intake and Output 09/07/24 07:00 Intake Total 1985 ml Output Total 650 ml Balance 1335 ml Intake Oral 1085 ml IV Total 900 ml Output Urine Total 650 ml # Voids 1 Exam HEENT pupils are reactive Neck is supple CV is S1-S2 regular rate and rhythm Respiratory bilateral clear GI positive bowel sound Extremity no edema [employer] no motor deficit Medications Current Medications Medications Dose Ordered Sig/Atilio Route Start Time Stop Time Status Last Admin Dose Admin Nitroglycerin 0.4 mg Q5MINP PRN SL 09/05/24 15:45 Morphine Sulfate 2 mg Q30M PRN IV 09/05/24 15:45 Morphine Sulfate 1 mg Q4HPRN PRN IV 09/05/24 16:00 Acetaminophen/ Hydrocodone Bitart 1 tab Q6HPRN PRN PO 09/05/24 16:00 09/07/24 10:05 1 TAB Acetaminophen 500 mg Q8HP PRN PO 09/05/24 16:00 Ondansetron HCl 4 mg Q6HP PRN IV 09/05/24 16:00 Docusate Sodium 100 mg BID PRN PO 09/05/24 16:00 Atorvastatin Calcium 40 mg HS PO 09/05/24 22:00 09/06/24 21:34 40 MG Budesonide 0.25 mg BID NEB 09/05/24 22:00 09/07/24 07:28 0.25 MG Albuterol 2.5 mg Q6HR NEB 09/05/24 18:00 09/07/24 12:03 2.5 MG Ipratropium [place] 0.5 mg Q6HR NEB 09/05/24 18:00 09/07/24 12:03 0.5 MG Calcium Carbonate 500 mg Q6HPRN PRN PO 09/05/24 21:45 09/06/24 20:17 500 MG Sodium Chloride 1,000 ml @ 100 mls/hr Q10H IV 09/06/24 19:00 09/07/24 06:44 100 MLS/HR Laboratory Results Laboratory Tests 09/07/24 05:49 Chemistry Test 09/06/24 19:13 09/07/24 05:49 Calcium Level 9.9 mg/dL (8.7-10.4) 9.8 mg/dL (8.7-10.4) Magnesium Level 1.8 mg/dL (1.6-2.6) Urinalysis Test 09/05/24 11:30 Urine Color Colorless (Yellow) Urine Clarity Clear (Clear) Urine pH 6.0 (5.0-9.0) Urine Specific [place] 1.010 (1.001-1.035) Urine Protein Negative (Negative) Urine Ketones Negative (Negative) Urine Blood Negative /uL (Negative) Urine Nitrite 2+ (Negative) H Urine Bilirubin Negative (Negative) Urine Urobilinogen Normal mg/dL (Negative) Urine Leukocyte Esterase Trace /uL (Negative) Urine RBC <1 /hpf (0 - 4) Urine WBC 5 /hpf (0 - 5) Urine Squamous Epithelial Cells None seen /hpf (<5) Urine Bacteria Few /hpf (None Seen) H Urine Glucose Normal mg/dL (Normal) Microbiology Microbiology Date/Time Source Procedure Growth Status 09/05/24 11:30 Voided Urine Urine Culture - Final Klebsiella pneumoniae - ESBL Complete Assessment/Plan Assessment/Plan 63-year-old female with a known history of COPD, chronic respiratory failure on home O2, previous history of open heart surgery for severe aortic stenosis status post TAVR presented to the hospital with chest pain found to have 1. Chest pain rule out [place] 2. Acute on chronic respiratory failure secondary to underlying COPD, rule out pulmonary embolism 3. Elevated D-dimer is rule out PE 4. Previous history of open heart surgery for TAVR -repeat BMP, CT angio to rule out pulmonary-embolism Follow up Cardiology recommendations. Plan discussed with: Patient My Orders Orders - ADILENE ROSS MD Procedure Category Date Status Time Ct Angio Chest CT 09/06/24 Logged Contrast 18:41 Bilat Lower Dvt US 09/06/24 Resulted 18:43 Sodium Chloride 0.9% PHA 09/06/24 In Process 19:00 Date of Service: Sep 07, 2024 Billing Provider: ADILENE ROSS MD Common Visit Codes: [id number] INP/OBS CARE(MOD) ADILENE ROSS MD Sep 07, 2024 15:49
--- NOTE | 2024-09-07 16:08 | DVHPN2 ---
Progress Note - Dictate Date Seen: Sep 07, 2024 Medical Necessity Reason Pt with a Central, PICC or Fol: No Subjective Patient was seen and evaluated in follow up. Patient is complaining of generalized pain. Patient refused breathing treatments overnight. WBC 13.2. CTA chest to R/O PE has not been done as patient has refused for CT. vital signs Vital Sign Date Time Temp Pulse Resp B/P (MAP) Pulse Ox O2 Delivery O2 Flow Rate FiO2 09/07/24 13:00 98.4 102 18 105/75 (85) 93 98.4 09/07/24 12:03 Nasal Cannula 2.0 09/07/24 12:03 28 Total Intake and Output 09/06/24 09/06/24 09/07/24 15:00 23:00 07:00 Intake Total 940 ml 1045 ml Output Total 650 ml Balance 290 ml 1045 ml medications Current Medications Medications Dose Ordered Sig/Atilio Route Start Time Stop Time Status Last Admin Dose Admin Nitroglycerin 0.4 mg Q5MINP PRN SL 09/05/24 15:45 Morphine Sulfate 2 mg Q30M PRN IV 09/05/24 15:45 Morphine Sulfate 1 mg Q4HPRN PRN IV 09/05/24 16:00 Acetaminophen/ Hydrocodone Bitart 1 tab Q6HPRN PRN PO 09/05/24 16:00 09/07/24 10:05 1 TAB Acetaminophen 500 mg Q8HP PRN PO 09/05/24 16:00 Ondansetron HCl 4 mg Q6HP PRN IV 09/05/24 16:00 Docusate Sodium 100 mg BID PRN PO 09/05/24 16:00 Atorvastatin Calcium 40 mg HS PO 09/05/24 22:00 09/06/24 21:34 40 MG Budesonide 0.25 mg BID NEB 09/05/24 22:00 09/07/24 07:28 0.25 MG Albuterol 2.5 mg Q6HR NEB 09/05/24 18:00 09/07/24 12:03 2.5 MG Ipratropium [place] 0.5 mg Q6HR NEB 09/05/24 18:00 09/07/24 12:03 0.5 MG Calcium Carbonate 500 mg Q6HPRN PRN PO 09/05/24 21:45 09/06/24 20:17 500 MG Sodium Chloride 1,000 ml @ 100 mls/hr Q10H IV 09/06/24 19:00 09/07/24 06:44 100 MLS/HR objective GENERAL: Awake, alert, oriented. LUNGS: Clear. CARDIOVASCULAR: Heart sounds are good. ABDOMEN: Soft. laboratory and microbiology Laboratory Tests 09/07/24 05:49 Test 09/07/24 05:49 Range/Units Serum Glucose 98 74-106 mg/dL Problem List Noncardiac chest pain. Severe aortic valve stenosis status post surgical aortic valve replacement (bioprosthetic) in March 2024. Acute hypoxic respiratory failure. Hyperlipidemia. COPD. Myotonic muscular dystrophy. History of tobacco use. Elevated D-dimer. Assessment/Plan Continued all current supportive medical care. Morphine and [place] for pain management. Lipitor. Nitro SL. Additional plan as per the hospital course. Plan discussed with: Patient MARCELA NORTON MD Sep 07, 2024 14:10
[2024-09-07] MEDS: MORPHINE SULFATE INJ 2 MG/ml SYRG IV PRN (22:46)
[2024-09-08] VITALS (17 sets, daily range): BP systolic 106–143; BP diastolic 47–79; PULSE 82–105; RESP 16–20; TEMP 98–99; O2SAT 92–99
--- NOTE | 2024-09-08 10:50 | DVHPN2 ---
Subjective Continues to report having intermittent chest pain Reviewed: Care Plan Changes from previous H/P or p: No Changes Eyes: No Pain, No Vision change, No Conjunctivae inflammation, No Eyelid inflammation, No Other, No Redness ENT: No Ear pain, No Ear discharge, No Nose pain, No Nose discharge, No Nose congestion, No Mouth pain, No Mouth swelling, No Throat pain, No Throat swelling, No Other Cardiovascular: Chest Pain Respiratory: Shortness of breath Gastrointestinal: No Nausea, No Vomiting, No Abdominal Pain, No Diarrhea, No Constipation, No Melena, No Hematochezia, No Other Genitourinary: No Dysuria, No Frequency, No Incontinence, No Hematuria, No Retention, No Other Musculoskeletal: No other, No neck pain, No shoulder pain, No arm pain, No back pain, No hand pain, No leg pain, No foot pain Skin: No Rash, No Lesions, No Jaundice, No Bruising, No Other Objective Vitals Vital Signs Date Time Temp Pulse Resp B/P (MAP) Pulse Ox O2 Delivery O2 Flow Rate FiO2 09/08/24 10:00 97 Nasal Cannula* 3 32 09/08/24 08:30 98.4 82 16 111/69 (83) 98.4 Intake/Output Intake and Output 09/08/24 07:00 Intake Total 1190 ml Output Total 800 ml Balance 390 ml Intake Oral 1190 ml Output Urine Total 800 ml # Voids 3 General Appearance: Alert, Oriented X3, Cooperative, mild distress HEENT: Atraumatic, PERRLA Cardiovascular: Normal S1, Normal S2 Musculoskeletal: Normal sensory function, Normal motor function Neuro: Normal gait, Normal speech Skin: Dry, Intact Psych/Mental Status: Mental status NL, Mood NL Medications Current Medications Medications Dose Ordered Sig/Atilio Route Start Time Stop Time Status Last Admin Dose Admin Nitroglycerin 0.4 mg Q5MINP PRN SL 09/05/24 15:45 Morphine Sulfate 2 mg Q30M PRN IV 09/05/24 15:45 Morphine Sulfate 1 mg Q4HPRN PRN IV 09/05/24 16:00 09/07/24 22:46 1 MG Acetaminophen/ Hydrocodone Bitart 1 tab Q6HPRN PRN PO 09/05/24 16:00 09/07/24 18:10 1 TAB Acetaminophen 500 mg Q8HP PRN PO 09/05/24 16:00 Ondansetron HCl 4 mg Q6HP PRN IV 09/05/24 16:00 Docusate Sodium 100 mg BID PRN PO 09/05/24 16:00 Atorvastatin Calcium 40 mg HS PO 09/05/24 22:00 09/07/24 22:32 40 MG Budesonide 0.25 mg BID NEB 09/05/24 22:00 09/08/24 06:58 0.25 MG Albuterol 2.5 mg Q6HR NEB 09/05/24 18:00 09/08/24 06:58 2.5 MG Ipratropium [place] 0.5 mg Q6HR NEB 09/05/24 18:00 09/08/24 06:58 0.5 MG Calcium Carbonate 500 mg Q6HPRN PRN PO 09/05/24 21:45 09/06/24 20:17 500 MG Sodium Chloride 1,000 ml @ 100 mls/hr Q10H IV 09/06/24 19:00 09/07/24 06:44 100 MLS/HR Ertapenem 1 gm/ Sodium Chloride 50 ml @ 100 mls/hr DAILY IV 09/08/24 10:00 Laboratory Results Laboratory Tests 09/07/24 05:49 Urinalysis Test 09/05/24 11:30 Urine Color Colorless (Yellow) Urine Clarity Clear (Clear) Urine pH 6.0 (5.0-9.0) Urine Specific [place] 1.010 (1.001-1.035) Urine Protein Negative (Negative) Urine Ketones Negative (Negative) Urine Blood Negative /uL (Negative) Urine Nitrite 2+ (Negative) H Urine Bilirubin Negative (Negative) Urine Urobilinogen Normal mg/dL (Negative) Urine Leukocyte Esterase Trace /uL (Negative) Urine RBC <1 /hpf (0 - 4) Urine WBC 5 /hpf (0 - 5) Urine Squamous Epithelial Cells None seen /hpf (<5) Urine Bacteria Few /hpf (None Seen) H Urine Glucose Normal mg/dL (Normal) Microbiology Microbiology Date/Time Source Procedure Growth Status 09/05/24 11:30 Voided Urine Urine Culture - Final Klebsiella pneumoniae - ESBL Complete Labs and/or images reviewed: Labs reviewed by me, Image(s) reviewed by me Assessment/Plan Assessment/Plan Impression: -chest pain, rule out acute coronary syndrome -acute hypoxic respiratory failure -recent history of SAVR -rule out acute systolic heart failure given probable pulmonary vascular congestion -recent history of ESBL in the urine -COPD -dyslipidemia Plan: Events: Patient urine positive for ESBL. -infectious disease consultation. Start patient on Invanz 1 g IV daily. Midline placement -cardiology consultation: Recommendations reviewed -CT angiogram of the chest pending -continue DuoNebs q.6 hours, Pulmicort b.i.d. -check influenza and COVID-19 -repeat chest x-ray in a.m. -echocardiogram recommendations reviewed Total time spent with patient discussing and formulating plan of care: 35 minutes. This medical document was created using an electronic medical record system with K[employer]cher dictation system. Although this document has been carefully reviewed, there may still be some phonetic and typographical errors. These areas are purely typographical due to imperfections of the software programs, and do not reflect any compromise in the patient's medical care. Plan discussed with: Patient, Son, Other (RB) My Orders Orders - YULIA WEBB NP Procedure Category Date Status Time Ertapenem Sod Inj PHA 09/08/24 In Process (Invanz) 10:00 * Infectious [place]- CONS 09/08/24 Transmitted Laurie Adler 09:00 Insert Midline ORDERS 09/08/24 Transmitted 09:00 * Commercial Sales Director CONS 09/08/24 Transmitted Consult Date of Service: Sep 08, 2024 Billing Provider: YULIA WEBB NP Common Visit Codes: [id number] INP/OBS CARE(HIGH) YULIA WEBB NP Sep 08, 2024 10:50
[2024-09-08] MEDS: ERTAPENEM SOD INJ 1 GM in SODIUM CHL 0.9% 50 ML IV SCH (11:29)
[2024-09-08] MEDS: IOHEXOL 350 MG/ML 100ML IJ ONE ×2 (13:31→14:05)
--- NOTE | 2024-09-08 14:51 | DVH ---
CLINICAL INFORMATION: 63 years old, Female; Patient's D-dimer is rule out pulmonary embolism. TECHNIQUE: Axial CTA images of the chest were obtained after the uneventful administration of 100 mL of Omnipaque 350 IV contrast. Coronal and sagittal reformatted images and MIP images were obtained, reviewed, and stored. One or more of the following dose reduction techniques were used: Automated exp osure control. Adjustment of mA and/or kV according to patient size. CTDIvol = 11.84, 4.83, 0.07, 0.07 mGy DLP = 190.31 mGy-cm COMPARISON: Chest radiograph dated 09/06/2024. FINDINGS: Pulmonary arteries: No central or lobar pulmonary embolism. Evaluation for segmental or subsegmental pulmonary emboli is limited due to respiratory motion artifact. Aorta: No aneurysm or dissection. Cardiac: Heart size is within normal limits. Moderate coronary artery calcification. Postsurgical ch anges of prior aortic valve replacement. Mediastinum/tim: No mass or adenopathy. Lungs: Moderate left pleural effusion, portions of which appear loculated. Atelectasis in the depende nt portions of the lower lobes and left upper lobe. Possible superimposed mild consolidation in the right lower lobe. Moderate emphysematous changes. Chest wall: No mass or other abnormality. Upper abdomen: Spleen is heterogeneous, may be due to the phase of contrast. Bones: No fracture or suspicious intraosseous lesions. IMPRESSION: 1. No central or lobar pulmonary embolism. Evaluation for segmental or subsegmental pulmonary emboli is limited due to respiratory motion artifact. 2. Moderate left pleural effusion, portions of which appear loculated. 3. Atelectasis in the dependent portions of the lower lobes bilaterally and left upper lobe. Possibl e superimposed mild consolidation in the right lower lobe. 4. Additional nonacute findings as detailed above.
--- NOTE | 2024-09-08 15:16 | ECG ---
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
--- NOTE | 2024-09-08 15:17 | ECG ---
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
--- NOTE | 2024-09-08 23:48 | DVHPN2 ---
Progress Note - Dictate Date Seen: Sep 08, 2024 Medical Necessity Reason Pt with a Central, PICC or Fol: No Subjective Patient was seen and evaluated in follow up. Patient is complaining of intermittent chest pain. CTA chest is negative for PE. There is moderate left pleural effusion, portions of which appear loculated. Atelectasis in the dependent portions of the lower lobes bilaterally and left upper lobe. Possible superimposed mild consolidation in the right lower lobe. vital signs Vital Sign Date Time Temp Pulse Resp B/P (MAP) Pulse Ox O2 Delivery O2 Flow Rate FiO2 09/08/24 21:00 99.0 100 20 106/63 (77) 99 99.0 09/08/24 18:43 Nasal Cannula 3.0 09/08/24 18:43 32 Total Intake and Output 09/07/24 09/07/24 09/08/24 15:00 23:00 07:00 Intake Total 240 ml 950 ml Output Total 800 ml Balance -560 ml 950 ml medications Current Medications Medications Dose Ordered Sig/Atilio Route Start Time Stop Time Status Last Admin Dose Admin Nitroglycerin 0.4 mg Q5MINP PRN SL 09/05/24 15:45 Morphine Sulfate 2 mg Q30M PRN IV 09/05/24 15:45 Morphine Sulfate 1 mg Q4HPRN PRN IV 09/05/24 16:00 09/08/24 20:42 1 MG Acetaminophen/ Hydrocodone Bitart 1 tab Q6HPRN PRN PO 09/05/24 16:00 09/07/24 18:10 1 TAB Acetaminophen 500 mg Q8HP PRN PO 09/05/24 16:00 Ondansetron HCl 4 mg Q6HP PRN IV 09/05/24 16:00 Docusate Sodium 100 mg BID PRN PO 09/05/24 16:00 Atorvastatin Calcium 40 mg HS PO 09/05/24 22:00 09/08/24 21:46 40 MG Budesonide 0.25 mg BID NEB 09/05/24 22:00 09/08/24 06:58 0.25 MG Albuterol 2.5 mg Q6HR NEB 09/05/24 18:00 09/08/24 18:42 2.5 MG Ipratropium [place] 0.5 mg Q6HR NEB 09/05/24 18:00 09/08/24 18:42 0.5 MG Calcium Carbonate 500 mg Q6HPRN PRN PO 09/05/24 21:45 09/06/24 20:17 500 MG Sodium Chloride 1,000 ml @ 100 mls/hr Q10H IV 09/06/24 19:00 09/07/24 06:44 100 MLS/HR Ertapenem 1 gm/ Sodium Chloride 50 ml @ 100 mls/hr DAILY IV 09/08/24 10:00 09/08/24 11:29 100 MLS/HR objective GENERAL: Awake, alert, oriented. LUNGS: Clear. CARDIOVASCULAR: Heart sounds are good. ABDOMEN: Soft. laboratory and microbiology Laboratory Tests 09/07/24 05:49 Test 09/07/24 05:49 Range/Units Serum Glucose 98 74-106 mg/dL Problem List Noncardiac chest pain. Severe aortic valve stenosis status post surgical aortic valve replacement (bioprosthetic) in March 2024. Acute hypoxic respiratory failure. Hyperlipidemia. COPD. Myotonic muscular dystrophy. History of tobacco use. Elevated D-dimer. Assessment/Plan Continued all current supportive medical care. Morphine and [place] for pain management. Lipitor. Nitro SL. Additional plan as per the hospital course. Plan discussed with: Patient MARCELA NORTON MD Sep 08, 2024 23:48
[2024-09-09] VITALS (13 sets, daily range): BP systolic 96–126; BP diastolic 58–78; PULSE 43–103; RESP 18–20; TEMP 97.6–98.7; O2SAT 18–100
--- NOTE | 2024-09-09 10:28 | DVHPN2 ---
Subjective Continues to report having intermittent chest pain Reviewed: Care Plan Changes from previous H/P or p: No Changes Eyes: No Pain, No Vision change, No Conjunctivae inflammation, No Eyelid inflammation, No Other, No Redness ENT: No Ear pain, No Ear discharge, No Nose pain, No Nose discharge, No Nose congestion, No Mouth pain, No Mouth swelling, No Throat pain, No Throat swelling, No Other Cardiovascular: Chest Pain Respiratory: Shortness of breath Gastrointestinal: No Nausea, No Vomiting, No Abdominal Pain, No Diarrhea, No Constipation, No Melena, No Hematochezia, No Other Genitourinary: No Dysuria, No Frequency, No Incontinence, No Hematuria, No Retention, No Other Musculoskeletal: No other, No neck pain, No shoulder pain, No arm pain, No back pain, No hand pain, No leg pain, No foot pain Skin: No Rash, No Lesions, No Jaundice, No Bruising, No Other Objective Vitals Vital Signs Date Time Temp Pulse Resp B/P (MAP) Pulse Ox O2 Delivery O2 Flow Rate FiO2 09/09/24 08:19 98.7 96 18 96/58 (71) 100 98.7 09/09/24 06:24 Nasal Cannula 3.0 09/09/24 06:24 32 Intake/Output Intake and Output 09/09/24 07:00 Intake Total 2300 ml Balance 2300 ml Intake Oral 1750 ml IV Total 550 ml # Voids 6 General Appearance: Alert, Oriented X3, Cooperative, mild distress HEENT: Atraumatic, PERRLA Cardiovascular: Normal S1, Normal S2 Musculoskeletal: Normal sensory function, Normal motor function Neuro: Normal gait, Normal speech Skin: Dry, Intact Psych/Mental Status: Mental status NL, Mood NL Medications Current Medications Medications Dose Ordered Sig/Atilio Route Start Time Stop Time Status Last Admin Dose Admin Nitroglycerin 0.4 mg Q5MINP PRN SL 09/05/24 15:45 Morphine Sulfate 2 mg Q30M PRN IV 09/05/24 15:45 Morphine Sulfate 1 mg Q4HPRN PRN IV 09/05/24 16:00 09/08/24 20:42 1 MG Acetaminophen/ Hydrocodone Bitart 1 tab Q6HPRN PRN PO 09/05/24 16:00 09/09/24 08:49 1 TAB Acetaminophen 500 mg Q8HP PRN PO 09/05/24 16:00 Ondansetron HCl 4 mg Q6HP PRN IV 09/05/24 16:00 Docusate Sodium 100 mg BID PRN PO 09/05/24 16:00 Atorvastatin Calcium 40 mg HS PO 09/05/24 22:00 09/08/24 21:46 40 MG Budesonide 0.25 mg BID NEB 09/05/24 22:00 09/09/24 07:02 0.25 MG Albuterol 2.5 mg Q6HR NEB 09/05/24 18:00 09/09/24 06:20 2.5 MG Ipratropium [place] 0.5 mg Q6HR NEB 09/05/24 18:00 09/09/24 06:20 0.5 MG Calcium Carbonate 500 mg Q6HPRN PRN PO 09/05/24 21:45 09/06/24 20:17 500 MG Ertapenem 1 gm/ Sodium Chloride 50 ml @ 100 mls/hr DAILY IV 09/08/24 10:00 09/09/24 08:48 100 MLS/HR Laboratory Results Laboratory Tests 09/07/24 05:49 Urinalysis Test 09/05/24 11:30 Urine Color Colorless (Yellow) Urine Clarity Clear (Clear) Urine pH 6.0 (5.0-9.0) Urine Specific [place] 1.010 (1.001-1.035) Urine Protein Negative (Negative) Urine Ketones Negative (Negative) Urine Blood Negative /uL (Negative) Urine Nitrite 2+ (Negative) H Urine Bilirubin Negative (Negative) Urine Urobilinogen Normal mg/dL (Negative) Urine Leukocyte Esterase Trace /uL (Negative) Urine RBC <1 /hpf (0 - 4) Urine WBC 5 /hpf (0 - 5) Urine Squamous Epithelial Cells None seen /hpf (<5) Urine Bacteria Few /hpf (None Seen) H Urine Glucose Normal mg/dL (Normal) Microbiology Microbiology Date/Time Source Procedure Growth Status 09/05/24 11:30 Voided Urine Urine Culture - Final Klebsiella pneumoniae - ESBL Complete Labs and/or images reviewed: Labs reviewed by me, Image(s) reviewed by me Assessment/Plan Assessment/Plan Impression: -chest pain, rule out acute coronary syndrome -acute hypoxic respiratory failure -recent history of SAVR -rule out acute systolic heart failure given probable pulmonary vascular congestion -recent history of ESBL in the urine -COPD -dyslipidemia Plan: Events: CT angiogram of the chest negative for PE. Noted questionable loculated effusions to left lung. Discussion made with patient regarding findings. Pulmonology consultation placed for possible thoracentesis well as assessment of etiology for effusion. -continue Invanz. Increase empiric coverage for possible hospital-acquired pneumonia. -infectious disease consultation. Start patient on Invanz 1 g IV daily. Midline placement -cardiology consultation: Recommendations reviewed -CT angiogram of the chest pending -continue DuoNebs q.6 hours, Pulmicort b.i.d. -check influenza and COVID-19 -repeat chest x-ray in a.m. -echocardiogram recommendations reviewed Total time spent with patient discussing and formulating plan of care: 35 minutes. This medical document was created using an electronic medical record system with [employer] system. Although this document has been carefully reviewed, there may still be some phonetic and typographical errors. These areas are purely typographical due to imperfections of the software programs, and do not reflect any compromise in the patient's medical care. Plan discussed with: Patient, Other (RN) My Orders Orders - YULIA WEBB NP Procedure Category Date Status Time *Consult CONS 09/09/24 Transmitted / 09:12 Complete Blood Count LAB 09/09/24 Logged 09:26 Basic Metabolic Panel LAB 09/09/24 Logged 09:26 Date of Service: Sep 09, 2024 Billing Provider: YULIA WEBB NP Common Visit Codes: [id number] INP/OBS CARE(HIGH) YULIA WEBB NP Sep 09, 2024 10:28
[2024-09-09] MEDS ORDERED: VANCOMYCIN PER PHARMACY 0 MG IV SCH (10:30)
[2024-09-09] MEDS: VANCOMYCIN 750MG KIT 100 ML IV ONE (11:45)
[2024-09-09 11:47] LABS: Hematocrit 39.6 % (36.0-46.0); Hemoglobin 12.9 g/dL (12.2-16.2); Mean Corpuscular Hemoglobin 28.7 pg (28.0-32.0); Mean Corpuscular Hgb Conc. 32.7 g/dL (32.0-36.0); Mean Corpuscular Volume 87.7 fL (80.0-100.0); Platelet Count (auto) 451 10^3/uL (140-450); Red Blood Cells 4.52 10^6/uL (4.0-5.20); Red Cell Distribution Width 15.6 % (11.8-14.3); White Blood Cell 12.7 10^3/uL (4.4-10.8)
[2024-09-09 11:54] LABS: Anion Gap 6 (5-15); Carbon Dioxide 27 mmol/L (20-31); Chloride 103 mmol/L (98-107); Potassium 4.1 mmol/L (3.5-5.1)
[2024-09-09 11:55] LABS: Calcium 9.5 mg/dL (8.7-10.4)
[2024-09-09 12:00] LABS: Glucose 87 mg/dL (74-106)
[2024-09-09 12:07] LABS: BUN/Creatinine Ratio 20.8 (10.0-20.0); Blood Urea Nitrogen < 5 mg/dL (9-23); Sodium 136 mmol/L (136-145)
[2024-09-09 12:38] LABS: Band Neutrophils % (manual) 0; Basophils % (manual) 0 (0.0-2.0); Blast Cells 0; Metamyelocytes % 0; Monocytes % (manual) 14 (0-12); Myelocytes % 0; Platelet Estimate Adequate; Promyelocytes % 0; Reactive Lymphocytes 0
[2024-09-09 12:39] LABS: Eosinophils % (manual) 4 (0-7); Lymphocytes % (manual) 15 (10.0-50.0)
--- NOTE | 2024-09-09 13:53 | DVHNC2 ---
Procedure - Ultrasound-guided thoracentesis procedure note: Physician: Dr Meño Sterling Time out time: 13:35 pm Patient medications and allergies reviewed. The risks and benefits of the procedure and the sedation options and risk were discussed with the patient's healthcare proxy. All questions were answered and informed consent was obtained. Patient identification and proposed procedure were verified prior to the procedure by the physician, and a nurse in the patient's room. The heart rate, respiratory rate, oxygen saturations, blood pressure, adequacy of p ulmonary ventilation, and response to care were monitored throughout the procedure. The physical status of the patient was reassessed after the procedure. Date: 09/09/24 Consent: Consent was obtained from patient prior to procedure. Indication, risks, and benefits were explained at length. Procedure summary: A time out was performed and a chest x-ray was reviewed prior to procedure. The appropriate site was confirmed and marked. My hands were washed immediately prior to the procedure, I wore a surgical cap, mask with protective eyewear, sterile gown and sterile gloves throughout the procedure. The patient was prepped and draped in a sterile manner using chlorhexidine scrub after the appr opriate level was percussed and confirmed by ultrasound. 1% lidocaine was used to anesthetize the skin, subcutaneous tissue, superior aspect of the rib periosteum and parietal pleura. A finder needle was then introduced over the superior aspect of the rib to locate the pleural fluid; sero-sanguinous fluid was aspirated. 5 [place] Yueh Thoracentesis needle was then introduced through the skin incision into the pleural space using negative aspiration pressure. The thoracentesis catheter was then threaded without difficulty. 800 mL's of sero-sanguinous colored fluid were removed without difficulty. The catheter was then removed. No immediate complications were noted during the procedure. A postprocedure chest x-ray is pending at the time of this note. The pleural fluid will be sent for cultures and cytology. Estimated blood loss is less than 5 mL's. CPT: 60194 CANDIDA STERLING MD Sep 09, 2024 13:53
--- NOTE | 2024-09-09 14:32 | DVH ---
CHEST RADIOGRAPH Indication: s/p right thoracentesis, r/o PTX Technique: Single frontal view of the chest was obtained Comparison: XY CHEST XRAY 1 VIEW on DOS: 09/06/24, XY CHEST PORTABLE on DOS: 09/05/24, XY CHEST GARRETT BLE on DOS: 09/05/23 FINDINGS: Lines and Tubes: None Lungs: No focal consolidation. Pleura: No effusion. No pneumothorax. Cardiomediastinal contours: Unremarkable Bones: No acute osseous abnormality. IMPRESSION: 1. No acute cardiopulmonary disease.
--- NOTE | 2024-09-09 14:37 | DVHDS2 ---
Discharge Summary Date of Admission Sep 05, 2024 at 15:45 Date of Discharge: Sep 09, 2024 Admitting Diagnosis Chest pain rule out acute coronary syndrome Labs/Diagnostic Data: Laboratory Results Test 09/09/24 14:09 09/09/24 11:30 09/07/24 05:49 09/05/24 19:20 White Blood Count 12.7 10^3/uL (4.4-10.8) Red Blood Count 4.52 10^6/uL (4.0-5.20) Hemoglobin 12.9 g/dL (12.2-16.2) Hematocrit 39.6 % (36.0-46.0) Mean Corpuscular Volume 87.7 fL (80.0-100.0) Mean Corpuscular Hemoglobin 28.7 pg (28.0-32.0) Mean Corpuscular Hemoglobin Concent 32.7 g/dL (32.0-36.0) Red Cell Distribution Width 15.6 % (11.8-14.3) Platelet Count 451 10^3/uL (140-450) Mean Platelet Volume 6.5 fL (6.9-10.8) Neutrophils (%) (Auto) % (37.0-80.0) Lymphocytes (%) (Auto) % (10.0-50.0) Monocytes (%) (Auto) % (0.0-12.0) Basophils (%) (Auto) % (0.0-2.0) Neutrophils # (Auto) 10 ^3/uL (1.6-8.6) Lymphocytes # (Auto) 10 ^3/uL (0.4-5.4) Monocytes # (Auto) 10 ^3/uL (0-1.3) Differential Total Cells Counted 100.0 (100) Neutrophils % (Manual) 67 (37.0-80.0) Band Neutrophils % (Manual) 0 Lymphocytes % (Manual) 15 (10.0-50.0) Monocytes % (Manual) 14 (0-12) Eosinophils % (Manual) 4 (0-7) Basophils % (Manual) 0 (0.0-2.0) Metamyelocytes % (manual) 0 Myelocytes % (Manual) 0 Promyelocytes % (Manual) 0 Blast Cells % (Manual) 0 Reactive Lymphocytes 0 Platelet Estimate Adequate Sodium Level 136 mmol/L (136-145) Potassium Level 4.1 mmol/L (3.5-5.1) Chloride Level 103 mmol/L (98-107) Carbon Dioxide Level 27 mmol/L (20-31) Anion Gap 6 (5-15) Blood Urea Nitrogen < 5 mg/dL (9-23) Creatinine 0.24 mg/dL (0.550-1.02) Glomerular Filtration Rate Calc 127 mL/min (>90) BUN/Creatinine Ratio 20.8 (10.0-20.0) Serum Glucose 87 mg/dL (74-106) Calcium Level 9.5 mg/dL (8.7-10.4) Magnesium Level 1.8 mg/dL (1.6-2.6) Influenza Type A Antigen Negative (Negative) Influenza Type B Antigen Negative (Negative) SARS-CoV-2 Antigen (Rapid) Negative (NEGATIVE) Test 09/05/24 17:05 09/05/24 14:37 09/05/24 14:31 09/05/24 11:30 Erythrocyte Sedimentation Rate 4 mm/hr (0-20) Troponin I High Sensitivity < 3 ng/L (</=34) C-Reactive Protein High Sensitivity 5.59 mg/dL (<1.0) D-Dimer, Quantitative 1.10 mg/L FEU (0.0-0.49) Prothrombin Time 11.9 sec (9.3-11.8) Prothrombin Time INR 1.13 (0.9-1.15) Activated Partial Thromboplast Time 31.9 SEC (24.5-34.5) Urine Color Colorless (Yellow) Urine Clarity Clear (Clear) Urine pH 6.0 (5.0-9.0) Urine Specific [place] 1.010 (1.001-1.035) Urine Protein Negative (Negative) Urine Ketones Negative (Negative) Urine Blood Negative /uL (Negative) Urine Nitrite 2+ (Negative) Urine Bilirubin Negative (Negative) Urine Urobilinogen Normal mg/dL (Negative) Urine Leukocyte Esterase Trace /uL (Negative) Urine RBC <1 /hpf (0 - 4) Urine WBC 5 /hpf (0 - 5) Urine Squamous Epithelial Cells None seen /hpf (<5) Urine Bacteria Few /hpf (None Seen) Urine Glucose Normal mg/dL (Normal) Total Bilirubin 0.2 mg/dL (0.2-1.0) Aspartate Amino Transferase (AST) 20 U/L (13-40) Alanine Aminotransferase (ALT) 12 U/L (7-40) Alkaline Phosphatase 138 U/L (46-116) B-Type Natriuretic Peptide 22.65 pg/mL (0-100) Total Protein 5.1 g/dL (5.7-8.2) Albumin 3.4 g/dL (3.2-4.8) Other Laboratory Tests 09/09/24 11:30 Brief Hx & Hospital Course: History of Present Illness The patient was a 63-year-old female brought into the hospital by EMS with reports of acute chest pain, shortness of breath, nausea, pallor, as well as radiation of the pain to her left arm. Patient continues to report having intermittent chest pain, described as sharp in nature to the left aspect of her chest. She reports that her symptoms have improved since being in the hospital. While in the emergency room the patient did receive aspirin as well as IV Lasix. She reports having multiple episodes of voiding, with the patient stating that she does have mild dyspnea with ambulating to the bathroom. Currently she was on2 L nasal cannula. Troponins thus far have been negative. EKG is unremarkable. Chest x-ray does reveal atypical pneumonia versus acute CHF. The patient does report having a significant history of SAVR six months ago with a tissue valve, COPD for which she takes trelegy and nebulizer treatments as needed, dyslipidemia, and chronic pain. The patient also reports recently being discharged home with a diagnosis of ESBL in the urine for which she has completed IV antibiotics and has had her PICC line removed. Course of hospitalization: Cardiology consultation was obtained. Patient had negative troponins x3. Echocardiogram was performed with normal aortic valve as well as ejection fraction. Patient had CT angiogram of the chest yesterday which was negative for PE. Patient was noted to have left loculated pleural effusion for which the patient underwent thoracentesis today by pulmonology. Fluid was found to be serosanguineous. Patient was white blood cell count has improved. Urine was found to be positive for ESBL, for which midline was placed as well consultation being placed for Infectious Disease for follow up as an outpatient. Patient has been on Invanz 1 g IV daily in the hospital. She will be continued on Invanz 1 g IV daily for an additional 14 days and will be followed by Dr. Heladio Adler. Patient was instructed to follow up with the discharge Clinic in 1-2 weeks for follow up regarding pleural fluid results. She was instructed to follow up with her PCP in 1-2 weeks. All questions answered. Physical examination General: Alert and Oriented x3. No acute distress. Well-nourished. Eyes: EOMI. Anicteric. HENT: Moist mucous membranes. Lungs: Clear to auscultation bilaterally. No accessory muscle use. Cardiovascular: Regular rate and rhythm. No murmur. No JVD. Abdomen: Soft, non-tender and non-distended. No palpable masses. Extremities: No edema. Non-tender. Skin: No rashes or lesions. Warm. Neurologic: No focal neurological deficits. CN II-XII grossly intact, but not individually tested. Psychiatric: Cooperative. Appropriate mood and affect. Total time spent with patient discussing and formulating plan of care: 35 minutes. This medical document was created using an electronic medical record system with [employer] dictation system. Although this document has been carefully reviewed, there may still be some phonetic and typographical errors. These areas are purely typographical due to imperfections of the software programs, and do not reflect any compromise in the patient's medical care. Consults/Reason for consult Cardiology: Chest pain Pulmonology: Pleural effusion Operations or Procedures 09/09/2024: Left thoracentesis Condition at Discharge: Guarded Final Diagnosis/Problems List Sepsis secondary to ESBL in the urine Secondary Diagnosis: -chest pain, ruled out acute coronary syndrome . Chest pain secondary to pleural effusion -acute hypoxic respiratory failure -recent history of SAVR -rule out acute systolic heart failure given probable pulmonary vascular congestion -recent history of ESBL in the urine -COPD -dyslipidemia Discharge Disposition: Home with Health Services Discharge Instruct/Medications Diet: Cardiac 2g Na,low cholest Activity: No Restrictions, As Tolerated Follow Up/Referral: Infectious disease in two weeks Discharge Clinic in one week PCP in 1-2 weeks Medications: Continue all previous home medications. Invanz 1 g IV daily times 14 days 36 Discharge Statement: "Patient was advised to return to the ER or call 911 if any headaches, dizziness, shortness of breath, chest pain, abdominal pain, bleeding, fevers, or worsening of medical condition. Patient was counseled about treatment plan, medications, possible side effects, patientverbalized understanding. All questions were answered to the best of my ability. This discharge took greater then 30 minutes in planning, reviewing documentation, counseling the patient, and discussing with other team members." ASSESSMENT ASSESSMENT Assessment Sepsis secondary to ESBL in the urine Date of Service: Sep 09, 2024 Billing Provider: YULIA WEBB NP Common Visit Codes: [id number] DISCH DAY >30min YULIA WEBB NP Sep 09, 2024 14:37
[2024-09-09 16:39] LABS: Body Fluid Polymorphonuclear 30 % (0-25); Body Fluid Red Blood Cells 47851 CUMM (0-2000); Body Fluid White Blood Cells 1542 CUMM (0-200)
[2024-09-09] MEDS: VANCOMYCIN 1GM/250ML KIT 250 ML IV SCH (20:30)
--- NOTE | 2024-09-09 21:31 | DVHINCON2 ---
Date of service: Sep 09, 2024 Referring Physician Marlon Castelan NP Reason for Consultation Acute hypoxic respiratory failure, COPD, and pleural effusion History of Present Illness A 63-year-old woman with PMHx including COPD, hyperlipidemia, aortic stenosis, myeloproliferative disorder and SAVR who presented to ED via EMS on 09/05/24 with reports of acute chest pain, shortness of breath, nausea, pallor, as well as radiation of the pain to her left arm. Patient continued to report intermittent chest pain, described as sharp in nature to the left aspect of her chest. Sx improved since being in the hospital. While in ED, patient did receive aspirin and IV Lasix. Chest x-ray revealed atypical pneumonia versus acute CHF. Of note, pt was recently discharged home with a diagnosis of ESBL in the urine for which she has completed IV antibiotics. Patient was admitted for further care and pulmonary consultation is requested for evaluation and management of acute hypoxic respiratory failure and pleural effusion. Review of Systems: 14-point review of systems negative unless otherwise noted above. Past Medical History: COPD, hyperlipidemia, aortic stenosis, myeloproliferative disorder, chronic pain. Past Surgical History: SAVR with tissue valve in February 2024. Medications: Reviewed. Allergies: No known drug allergies. Family History: Congestive heart failure Aneurysm Muscular dystrophy Hypertension. Social History: Nonsmoker. No alcohol or illicit drug use. Family History: FH: CHF (congestive heart failure) G8 MOTHER FH: aneurysm G8 MOTHER FH: muscular dystrophy G8 FATHER Hypertension G8 MOTHER Allergies: Coded Allergies: NO KNOWN ALLERGIES (Unverified , 02/17/23) Home Meds Active Scripts Prednisone (Prednisone) 20 Mg Tab, 20 MG PO BID for 6 Days, #6 MG 10 mg twice a day x 3 days 10 mg once a day x 3 days Prov:MARLON CASTELAN NP 09/05/23 Doxycycline (Monohydrate) (Doxycycline) 100 Mg Cap, 100 MG PO BID for 7 Days, #14 CAP Prov:MARLON CASTELAN NP 09/05/23 Acetaminophen (Tylenol 8 Hour Arthritis) 650 Mg Tab, 650 MG PO TID, #30 TAB Prov:CAMILLE HERNANDEZ 02/17/23 Methocarbamol (Methocarbamol) 750 Mg Tab, 750 MG PO BID, #20 TAB Prov:CAMILLE HERNANDEZ 02/17/23 Reported Medications Aspirin (Aspir-Low) 81 Mg Tab, 81 MG PO DAILY for 30 Days, MG 09/05/24 Atorvastatin Calcium (ATORVASTATIN CALCIUM) 10 Mg Tab, PO 09/05/24 Current Medications Current Medications Medications (Trade) Dose Ordered Sig/Atilio Route PRN Reason Start Time Stop Time Status Last Admin Vancomycin HCl 0 ml @ 0 mls/hr UD IV 09/09/24 10:30 Vancomycin HCl 250 ml @ 250 mls/hr Q8H IV 09/09/24 20:00 09/09/24 20:30 Vital Signs Vital Signs Date Time Temp Pulse Resp B/P (MAP) Pulse Ox O2 Delivery O2 Flow Rate FiO2 09/09/24 20:00 92 09/09/24 16:36 97.6 19 122/78 (93) 92 97.6 09/09/24 10:00 Nasal Cannula* 3 32 Physical Exam Gen.: Patient lying in bed in no apparent distress. On supplemental oxygen. Head: Normocephalic, atraumatic. Eyes: EOMI/PERRLA. Ears: Normal hearing. Normal anatomy. Neck/trachea: Trachea midline, supple. Nose: Normal external anatomy. Mouth: Moist mucous membranes. Chest: Decreased air entry bilaterally. No wheezing or rhonchi. Cardiovascular: Positive S1, positive S2. Regular rate and rhythm. Abdomen: Positive bowel sounds in all 4 quadrants. Soft, non-tender, non- distended. : Deferred. Rectal: Deferred. Skin: Warm, dry. Intact. Extremities: 2+ radial pulses bilaterally. No lower extremity edema. Neuro: Awake, alert, oriented x3. No gross motor or sensory deficits. Cranial nerves II through XII intact. Gait not assessed. Labs/Diagnostic Data Labs Test 09/09/24 14:09 09/09/24 11:30 09/07/24 05:49 09/05/24 19:20 Range/Units Body Fluid Source Pleural fluid Body Fluid pH 7.0 Body Fluid WBC (Manual) 1542 H 0-200 CUMM Body Fluid RBC (Manual) 24899 H 0-2000 CUMM Body Fluid Mononuclear Cells 70 % Body Fluid Polymorphonuclear Cells 30 H 0-25 % White Blood Count 12.7 H 4.4-10.8 10^3/uL Red Blood Count 4.52 4.0-5.20 10^6/uL Hemoglobin 12.9 12.2-16.2 g/dL Hematocrit 39.6 36.0-46.0 % Mean Corpuscular Volume 87.7 80.0-100.0 fL Mean Corpuscular Hemoglobin 28.7 28.0-32.0 pg Mean Corpuscular Hemoglobin Concent 32.7 32.0-36.0 g/dL Red Cell Distribution Width 15.6 H 11.8-14.3 % Platelet Count 451 H 140-450 10^3/uL Mean Platelet Volume 6.5 L 6.9-10.8 fL Neutrophils (%) (Auto) 37.0-80.0 % Lymphocytes (%) (Auto) 10.0-50.0 % Monocytes (%) (Auto) 0.0-12.0 % Basophils (%) (Auto) 0.0-2.0 % Neutrophils # (Auto) 1.6-8.6 10 ^3/uL Lymphocytes # (Auto) 0.4-5.4 10 ^3/uL Monocytes # (Auto) 0-1.3 10 ^3/uL Differential Total Cells Counted 100.0 100 Neutrophils % (Manual) 67 37.0-80.0 Band Neutrophils % (Manual) 0 Lymphocytes % (Manual) 15 10.0-50.0 Monocytes % (Manual) 14 H 0-12 Eosinophils % (Manual) 4 0-7 Basophils % (Manual) 0 0.0-2.0 Metamyelocytes % (manual) 0 Myelocytes % (Manual) 0 Promyelocytes % (Manual) 0 Blast Cells % (Manual) 0 Reactive Lymphocytes 0 Platelet Estimate Adequate Sodium Level 136 136-145 mmol/L Potassium Level 4.1 3.5-5.1 mmol/L Chloride Level 103 98-107 mmol/L Carbon Dioxide Level 27 20-31 mmol/L Anion Gap 6 5-15 Blood Urea Nitrogen < 5 L 9-23 mg/dL Creatinine 0.24 L 0.550-1.02 mg/dL Glomerular Filtration Rate Calc 127 >90 mL/min BUN/Creatinine Ratio 20.8 H 10.0-20.0 Serum Glucose 87 74-106 mg/dL Calcium Level 9.5 8.7-10.4 mg/dL Magnesium Level 1.8 1.6-2.6 mg/dL Influenza Type A Antigen Negative Negative Influenza Type B Antigen Negative Negative SARS-CoV-2 Antigen (Rapid) Negative NEGATIVE Test 09/05/24 17:05 09/05/24 14:37 09/05/24 14:31 09/05/24 11:30 Range/Units Erythrocyte Sedimentation Rate 4 0-20 mm/hr Troponin I High Sensitivity < 3 L </=34 ng/L C-Reactive Protein High Sensitivity 5.59 H <1.0 mg/dL D-Dimer, Quantitative 1.10 H 0.0-0.49 mg/L FEU Prothrombin Time 11.9 H 9.3-11.8 sec Prothrombin Time INR 1.13 0.9-1.15 Activated Partial Thromboplast Time 31.9 24.5-34.5 SEC Urine Color Colorless Yellow Urine Clarity Clear Clear Urine pH 6.0 5.0-9.0 Urine Specific [place] 1.010 1.001-1.035 Urine Protein Negative Negative Urine Ketones Negative Negative Urine Blood Negative Negative /uL Urine Nitrite 2+ H Negative Urine Bilirubin Negative Negative Urine Urobilinogen Normal Negative mg/dL Urine Leukocyte Esterase Trace Negative /uL Urine RBC <1 0 - 4 /hpf Urine WBC 5 0 - 5 /hpf Urine Squamous Epithelial Cells None seen <5 /hpf Urine Bacteria Few H None Seen /hpf Urine Glucose Normal Normal mg/dL Total Bilirubin 0.2 0.2-1.0 mg/dL Aspartate Amino Transferase (AST) 20 13-40 U/L Alanine Aminotransferase (ALT) 12 7-40 U/L Alkaline Phosphatase 138 H 46-116 U/L B-Type Natriuretic Peptide 22.65 0-100 pg/mL Total Protein 5.1 L 5.7-8.2 g/dL Albumin 3.4 3.2-4.8 g/dL Microbiology Date/Time Source Procedure Growth Status 09/05/24 11:30 Voided Urine Urine Culture - Final Klebsiella pneumoniae - ESBL Complete Assessment Impression: Acute hypoxic respiratory failure Chest pain, rule out acute coronary syndrome Rule out acute systolic heart failure given probable pulmonary vascular congestion COPD Pleural effusion Atelectasis Recent history of ESBL in urine Plan: Supplemental oxygen 3 LPM NC Titrate to keep O2 sats above 92%. Taper O2 as tolerated. CT angio demonstrated no e/o pulmonary embolism. Limited evaluation d/t respiratory motion artifact. Moderate left pleural effusion, portions of which appear loculated w/ a telectasis in the dependent portions of the lower lobes bilaterally and left upper lobe. Possible superimposed mild consolidation in the right lower lobe. S/p left thoracentesis with removal of 800 mL sero-sanguinous fluid from left pleural space Send fluid for cultures and cytology Continue antibiotics Follow up cultures and cytology Incentive spirometry Monitor renal function. Monitor electrolytes. Supplement as necessary. Monitor ins and outs. Pain control Avoid oversedation DVT prophylaxis. CXR no PTX post left thoracentesis. Interval reduction in left pleural effusion. Pt stable from pulmonary standpoint for discharge. Recommend f/u in pulm clinic in 2 weeks to assess for left pleural fluid re- accumulation. Dispo: Per hospitalist. Prognosis: Poor given patient's multiple co-morbidities. Rest of plan per hospitalist and other consultants. Thank you, Marlon Castelan NP, for allowing me to participate in this patient's care. Please do not hesitate to contact me if you have any questions or concerns. This medical document was created using an electronic medical record system with [employer] dictation system. Although these documentations are being carefully reviewed, there may still be some phonetic and typographical changes. The errors are purely typographical, due to imperfection on the software program, and do not reflect any compromise in the patient's medical care. Plan discussed with: Patient, Other (DANICA Moses/WENDY Castelan) CANDIDA MCKEON MD Sep 09, 2024 21:31
--- NOTE | 2024-09-09 23:41 | DVHINCON2 ---
Date of service: Sep 08, 2024 Family History: FH: CHF (congestive heart failure) G8 MOTHER FH: aneurysm G8 MOTHER FH: muscular dystrophy G8 FATHER Hypertension G8 MOTHER Allergies: Coded Allergies: NO KNOWN ALLERGIES (Unverified , 02/17/23) Home Meds Active Scripts Prednisone (Prednisone) 20 Mg Tab, 20 MG PO BID for 6 Days, #6 MG 10 mg twice a day x 3 days 10 mg once a day x 3 days Prov:YULIA WEBB CHILD CARE SITTER 09/05/23 Doxycycline (Monohydrate) (Doxycycline) 100 Mg Cap, 100 MG PO BID for 7 Days, #14 CAP Prov:YULIA WEBB CHILD CARE SITTER 09/05/23 Acetaminophen (Tylenol 8 Hour Arthritis) 650 Mg Tab, 650 MG PO TID, #30 TAB Prov:CAMILLE HERNANDEZ 02/17/23 Methocarbamol (Methocarbamol) 750 Mg Tab, 750 MG PO BID, #20 TAB Prov:CAMILLE HERNANDEZ 02/17/23 Reported Medications Aspirin (Aspir-Low) 81 Mg Tab, 81 MG PO DAILY for 30 Days, MG 09/05/24 Atorvastatin Calcium (ATORVASTATIN CALCIUM) 10 Mg Tab, PO 09/05/24 Current Medications Current Medications Medications (Trade) Dose Ordered Sig/Atilio Route PRN Reason Start Time Stop Time Status Last Admin Vancomycin HCl 0 ml @ 0 mls/hr UD IV 09/09/24 10:30 Vancomycin HCl 250 ml @ 250 mls/hr Q8H IV 09/09/24 20:00 09/09/24 20:30 Vital Signs Vital Signs Date Time Temp Pulse Resp B/P (MAP) Pulse Ox O2 Delivery O2 Flow Rate FiO2 09/09/24 20:00 92 18 18 Nasal Cannula* 3 32 09/09/24 16:36 97.6 122/78 (93) 97.6 Labs/Diagnostic Data Labs Test 09/09/24 14:09 09/09/24 11:30 09/07/24 05:49 09/05/24 19:20 Range/Units Body Fluid Source Pleural fluid Body Fluid pH 7.0 Body Fluid WBC (Manual) 1542 H 0-200 CUMM Body Fluid RBC (Manual) 26441 H 0-2000 CUMM Body Fluid Mononuclear Cells 70 % Body Fluid Polymorphonuclear Cells 30 H 0-25 % White Blood Count 12.7 H 4.4-10.8 10^3/uL Red Blood Count 4.52 4.0-5.20 10^6/uL Hemoglobin 12.9 12.2-16.2 g/dL Hematocrit 39.6 36.0-46.0 % Mean Corpuscular Volume 87.7 80.0-100.0 fL Mean Corpuscular Hemoglobin 28.7 28.0-32.0 pg Mean Corpuscular Hemoglobin Concent 32.7 32.0-36.0 g/dL Red Cell Distribution Width 15.6 H 11.8-14.3 % Platelet Count 451 H 140-450 10^3/uL Mean Platelet Volume 6.5 L 6.9-10.8 fL Neutrophils (%) (Auto) 37.0-80.0 % Lymphocytes (%) (Auto) 10.0-50.0 % Monocytes (%) (Auto) 0.0-12.0 % Basophils (%) (Auto) 0.0-2.0 % Neutrophils # (Auto) 1.6-8.6 10 ^3/uL Lymphocytes # (Auto) 0.4-5.4 10 ^3/uL Monocytes # (Auto) 0-1.3 10 ^3/uL Differential Total Cells Counted 100.0 100 Neutrophils % (Manual) 67 37.0-80.0 Band Neutrophils % (Manual) 0 Lymphocytes % (Manual) 15 10.0-50.0 Monocytes % (Manual) 14 H 0-12 Eosinophils % (Manual) 4 0-7 Basophils % (Manual) 0 0.0-2.0 Metamyelocytes % (manual) 0 Myelocytes % (Manual) 0 Promyelocytes % (Manual) 0 Blast Cells % (Manual) 0 Reactive Lymphocytes 0 Platelet Estimate Adequate Sodium Level 136 136-145 mmol/L Potassium Level 4.1 3.5-5.1 mmol/L Chloride Level 103 98-107 mmol/L Carbon Dioxide Level 27 20-31 mmol/L Anion Gap 6 5-15 Blood Urea Nitrogen < 5 L 9-23 mg/dL Creatinine 0.24 L 0.550-1.02 mg/dL Glomerular Filtration Rate Calc 127 >90 mL/min BUN/Creatinine Ratio 20.8 H 10.0-20.0 Serum Glucose 87 74-106 mg/dL Calcium Level 9.5 8.7-10.4 mg/dL Magnesium Level 1.8 1.6-2.6 mg/dL Influenza Type A Antigen Negative Negative Influenza Type B Antigen Negative Negative SARS-CoV-2 Antigen (Rapid) Negative NEGATIVE Test 09/05/24 17:05 09/05/24 14:37 09/05/24 14:31 09/05/24 11:30 Range/Units Erythrocyte Sedimentation Rate 4 0-20 mm/hr Troponin I High Sensitivity < 3 L </=34 ng/L C-Reactive Protein High Sensitivity 5.59 H <1.0 mg/dL D-Dimer, Quantitative 1.10 H 0.0-0.49 mg/L FEU Prothrombin Time 11.9 H 9.3-11.8 sec Prothrombin Time INR 1.13 0.9-1.15 Activated Partial Thromboplast Time 31.9 24.5-34.5 SEC Urine Color Colorless Yellow Urine Clarity Clear Clear Urine pH 6.0 5.0-9.0 Urine Specific [place] 1.010 1.001-1.035 Urine Protein Negative Negative Urine Ketones Negative Negative Urine Blood Negative Negative /uL Urine Nitrite 2+ H Negative Urine Bilirubin Negative Negative Urine Urobilinogen Normal Negative mg/dL Urine Leukocyte Esterase Trace Negative /uL Urine RBC <1 0 - 4 /hpf Urine WBC 5 0 - 5 /hpf Urine Squamous Epithelial Cells None seen <5 /hpf Urine Bacteria Few H None Seen /hpf Urine Glucose Normal Normal mg/dL Total Bilirubin 0.2 0.2-1.0 mg/dL Aspartate Amino Transferase (AST) 20 13-40 U/L Alanine Aminotransferase (ALT) 12 7-40 U/L Alkaline Phosphatase 138 H 46-116 U/L B-Type Natriuretic Peptide 22.65 0-100 pg/mL Total Protein 5.1 L 5.7-8.2 g/dL Albumin 3.4 3.2-4.8 g/dL Microbiology Date/Time Source Procedure Growth Status 09/05/24 11:30 Voided Urine Urine Culture - Final Klebsiella pneumoniae - ESBL Complete SHAMIR ALVAREZ MD Sep 09, 2024 23:41
--- NOTE | 2024-09-09 23:41 | DVHPN2 ---
Consult Progress Note Objective vital signs Vital Sign Date Time Temp Pulse Resp B/P (MAP) Pulse Ox O2 Delivery O2 Flow Rate FiO2 09/09/24 20:00 92 18 18 Nasal Cannula* 3 32 09/09/24 16:36 97.6 122/78 (93) 97.6 Total Intake and Output 09/08/24 09/08/24 09/09/24 15:00 23:00 07:00 Intake Total 550 ml 950 ml 800 ml Balance 550 ml 950 ml 800 ml medications Current Medications Medications Dose Ordered Sig/Atilio Route Start Time Stop Time Status Last Admin Dose Admin Nitroglycerin 0.4 mg Q5MINP PRN SL 09/05/24 15:45 Morphine Sulfate 2 mg Q30M PRN IV 09/05/24 15:45 Morphine Sulfate 1 mg Q4HPRN PRN IV 09/05/24 16:00 09/08/24 20:42 Acetaminophen/ Hydrocodone Bitart 1 tab Q6HPRN PRN PO 09/05/24 16:00 09/09/24 16:26 Acetaminophen 500 mg Q8HP PRN PO 09/05/24 16:00 Ondansetron HCl 4 mg Q6HP PRN IV 09/05/24 16:00 Docusate Sodium 100 mg BID PRN PO 09/05/24 16:00 Atorvastatin Calcium 40 mg HS PO 09/05/24 22:00 09/09/24 20:30 Budesonide 0.25 mg BID NEB 09/05/24 22:00 09/09/24 07:02 Albuterol 2.5 mg Q6HR NEB 09/05/24 18:00 09/09/24 12:10 Ipratropium [place] 0.5 mg Q6HR NEB 09/05/24 18:00 09/09/24 12:10 Calcium Carbonate 500 mg Q6HPRN PRN PO 09/05/24 21:45 09/09/24 18:35 Ertapenem 1 gm/ Sodium Chloride 50 ml @ 100 mls/hr DAILY IV 09/08/24 10:00 09/09/24 08:48 Vancomycin HCl 0 ml @ 0 mls/hr UD IV 09/09/24 10:30 Vancomycin HCl 250 ml @ 250 mls/hr Q8H IV 09/09/24 20:00 09/09/24 20:30 laboratory and microbiology Laboratory Tests 09/09/24 11:30 Test 09/09/24 11:30 Range/Units Serum Glucose 87 74-106 mg/dL SHAMIR ALVAREZ MD Sep 09, 2024 23:41
--- NOTE | 2024-09-09 23:55 | DVHPN2 ---
Progress Note - Dictate Date Seen: Sep 09, 2024 Medical Necessity Reason Pt with a Central, PICC or Fol: No Subjective Patient was seen and evaluated in follow up. Patient is complaining of chest pain and SOB. Patient underwent ultrasound-guided thoracentesis with removal of 800 mL's of sero-sanguinous colored fluid. WBC 12.7. vital signs Vital Sign Date Time Temp Pulse Resp B/P (MAP) Pulse Ox O2 Delivery O2 Flow Rate FiO2 09/09/24 23:51 96 18 132/76 09/09/24 20:00 18 Nasal Cannula* 3 32 09/09/24 16:36 97.6 97.6 Total Intake and Output 09/08/24 09/08/24 09/09/24 15:00 23:00 07:00 Intake Total 550 ml 950 ml 800 ml Balance 550 ml 950 ml 800 ml medications Current Medications Medications Dose Ordered Sig/Atilio Route Start Time Stop Time Status Last Admin Dose Admin Nitroglycerin 0.4 mg Q5MINP PRN SL 09/05/24 15:45 Morphine Sulfate 2 mg Q30M PRN IV 09/05/24 15:45 Morphine Sulfate 1 mg Q4HPRN PRN IV 09/05/24 16:00 09/09/24 23:51 1 MG Acetaminophen/ Hydrocodone Bitart 1 tab Q6HPRN PRN PO 09/05/24 16:00 09/09/24 16:26 1 TAB Acetaminophen 500 mg Q8HP PRN PO 09/05/24 16:00 Ondansetron HCl 4 mg Q6HP PRN IV 09/05/24 16:00 Docusate Sodium 100 mg BID PRN PO 09/05/24 16:00 Atorvastatin Calcium 40 mg HS PO 09/05/24 22:00 09/09/24 20:30 40 MG Budesonide 0.25 mg BID NEB 09/05/24 22:00 09/09/24 07:02 0.25 MG Albuterol 2.5 mg Q6HR NEB 09/05/24 18:00 09/09/24 12:10 2.5 MG Ipratropium [place] 0.5 mg Q6HR NEB 09/05/24 18:00 09/09/24 12:10 0.5 MG Calcium Carbonate 500 mg Q6HPRN PRN PO 09/05/24 21:45 09/09/24 18:35 500 MG Ertapenem 1 gm/ Sodium Chloride 50 ml @ 100 mls/hr DAILY IV 09/08/24 10:00 09/09/24 08:48 100 MLS/HR Vancomycin HCl 0 ml @ 0 mls/hr UD IV 09/09/24 10:30 Vancomycin HCl 250 ml @ 250 mls/hr Q8H IV 09/09/24 20:00 09/09/24 20:30 250 MLS/HR objective GENERAL: Awake, alert, oriented. LUNGS: Clear. CARDIOVASCULAR: Heart sounds are good. ABDOMEN: Soft. laboratory and microbiology Laboratory Tests 09/09/24 11:30 Test 09/09/24 11:30 Range/Units Serum Glucose 87 74-106 mg/dL Problem List Noncardiac chest pain. Severe aortic valve stenosis status post surgical aortic valve replacement (bioprosthetic) in March 2024. Acute hypoxic respiratory failure. Hyperlipidemia. COPD. Myotonic muscular dystrophy. History of tobacco use. Elevated D-dimer. Assessment/Plan Continued all current supportive medical care. Morphine and [place] for pain management. Lipitor. Nitro SL. Additional plan as per the hospital course. Plan discussed with: Patient MARCELA NORTON MD Sep 09, 2024 23:55
[2024-09-10 01:00] VITALS: BP 127/76; PULSE 95; RESP 17; TEMP 97.3; O2SAT 95
[2024-09-10 05:00] VITALS: BP 112/64; PULSE 88; RESP 18; TEMP 97.3; O2SAT 95
[2024-09-10 08:00] VITALS: PULSE 91
[2024-09-10 08:36] VITALS: BP 94/64; PULSE 93; RESP 17; TEMP 98.3; O2SAT 95
[2024-09-10 10:00] VITALS: O2SAT 95
--- NOTE | 2024-09-10 13:36 | DVHPN2 ---
Progress Note - Dictate Date Seen: Sep 10, 2024 Medical Necessity Reason Pt with a Central, PICC or Fol: No Subjective Patient was seen and evaluated in follow up. Patient has no new complaints at this time. Patient denies any cardiac symptoms. Patient is cardiac stable for discharge. vital signs Vital Sign Date Time Temp Pulse Resp B/P (MAP) Pulse Ox O2 Delivery O2 Flow Rate FiO2 09/10/24 10:00 95 3.0 09/10/24 10:00 Nasal Cannula* 32 09/10/24 08:36 98.3 93 17 94/64 (74) 98.3 Total Intake and Output 09/09/24 09/09/24 09/10/24 15:00 23:00 07:00 Intake Total 150 ml 1200 ml Balance 150 ml 1200 ml objective GENERAL: Awake, alert, oriented. LUNGS: Clear. CARDIOVASCULAR: Heart sounds are good. ABDOMEN: Soft. laboratory and microbiology Laboratory Tests 09/09/24 11:30 Test 09/09/24 11:30 Range/Units Serum Glucose 87 74-106 mg/dL Problem List Noncardiac chest pain. Severe aortic valve stenosis status post surgical aortic valve replacement (bioprosthetic) in March 2024. Acute hypoxic respiratory failure. Hyperlipidemia. COPD. Myotonic muscular dystrophy. History of tobacco use. Elevated D-dimer. Assessment/Plan Continued all current supportive medical care. Morphine and [place] for pain management. Lipitor. Nitro SL. Additional plan as per the hospital course. Plan discussed with: Patient MARCELA NORTON MD Sep 10, 2024 12:47
--- NOTE | 2024-09-10 19:17 | DVHPN2 ---
Assessment/Plan Assessment/Plan pateint was discharged yesterday Plan discussed with: Other Date of Service: Sep 10, 2024 Billing Provider: NITHIN BRITO MD Common Visit Codes: NOT BILLABLE NITHIN BRITO MD Sep 10, 2024 19:17
[2024-09-12 10:06] LABS: Protein, Body Fluid 3.2 g/dL (.)
== END 2024-09-10 10:30 | disposition home health service (06) | DRG 720 ==
LOC: EDSEX 11:13 → EDBD 11:13 → ER 11:13 → TELE 15:45 → TELE-WESTW 22:53
PROVIDERS: ADMIT Nurse Practitioner Acute Care; ATTEND Nurse Practitioner Acute Care
PROC: 05HB33Z Insertion of Infusion Device into Right Basilic Vein, Percutaneous Approach (ICD-10-PCS; 2024-09-08)
PROC: B54MZZA Ultrasonography of Right Upper Extremity Veins, Guidance (ICD-10-PCS; 2024-09-08)
PROC: 0W9B3ZZ Drainage of Left Pleural Cavity, Percutaneous Approach (ICD-10-PCS; principal; 2024-09-09)
DX: A41.89 Other specified sepsis (principal); J96.21 Acute and chronic respiratory failure with hypoxia; I50.21 Acute systolic (congestive) heart failure; G71.11 Myotonic muscular dystrophy; J91.8 Pleural effusion in other conditions classified elsewhere; Z99.81 Dependence on supplemental oxygen; E78.5 Hyperlipidemia, unspecified; Z20.822 Contact with and (suspected) exposure to COVID-19; I35.0 Nonrheumatic aortic (valve) stenosis; J98.11 Atelectasis; G89.29 Other chronic pain; J44.9 Chronic obstructive pulmonary disease, unspecified; Z90.710 Acquired absence of both cervix and uterus; Z95.3 Presence of xenogenic heart valve; Z87.891 Personal history of nicotine dependence; Z82.49 Family history of ischemic heart disease and other diseases of the circulatory system; Z86.19 Personal history of other infectious and parasitic diseases
CPT/HCPCS: 32555; 36415; 71045; 71275; 80048; 80053; 81001; 83735; 83880; 83986; 84484; 85007; 85027; 85379; 85610; 85652; 85730; 86141; 87086; 87205; 87426; 87804; 89051; 93005; 93306; 93970; 94640; G0378; J1335

== ENCOUNTER 2024-09-11 11:19 | Emergency (ER) | payer MEDICAID ==
[~2024-09-11] VITALS: Ht 157.5 cm; Wt 46.8 kg
[~2024-09-11 11:19] MED LIST changes: +ASPI-543 PO; +ATOR10TA52 PO
[2024-09-11] MEDS: ERTAPENEM SOD INJ 1 GM in SODIUM CHL 0.9% 50 ML IV ONE (13:02)
[2024-09-11 13:21] VITALS: BP 157/94; PULSE 126; RESP 20; TEMP 97.5; O2SAT 98
--- NOTE | 2024-09-11 13:47 | ED.PDOC ---
History of Present Illness HPI Comments A 63 YEAR OLD FEMALE PRESENTS TO THE ED WITH COMPLAINT OF REQUEST FOR DOSE OF INVANZ MEDICATION. PATIENT STATES SHE WAS ADMITTED IN THIS ED AND HAD A MIDLINE PLACED DUE TO SEPSIS AND A UTI AND WAS GIVEN INVANZ TO ADMINISTER, BUT NOTES THE MULTIMEDIA ENGINEER DID NOT DELIVER IT AND WOULD NOW LIKE A DOSE HERE IN THE ED. PATIENT DENIES FEVER, CHILLS, SHORTNESS OF BREATH, CHEST PAIN, ABDOMINAL PAIN, NAUSEA, VOMITING, HEADACHE, OR OTHER COMPLAINTS. NO OTHER SYMPTOMS OR MODIFYING FACTORS AT THIS TIME. PATIENT IS ALERT, ORIENTED X 4, AND HAS STEADY GAIT. Chief Complaint: MEDICATION REQUEST Time Seen by MD: 12:33 Primary Care Provider: UNKNOWN Reviewed Notes: Nurses Notes, Medications, Allergies Allergies: Coded Allergies: NO KNOWN ALLERGIES (Unverified , 02/17/23) Home Meds Active Scripts Prednisone (Prednisone) 20 Mg Tab, 20 MG PO BID for 6 Days, #6 MG 10 mg twice a day x 3 days 10 mg once a day x 3 days Prov:YULIA WEBB SEATER GRINDER 09/05/23 Doxycycline (Monohydrate) (Doxycycline) 100 Mg Cap, 100 MG PO BID for 7 Days, #14 CAP Prov:YULIA WEBB SEATER GRINDER 09/05/23 Acetaminophen (Tylenol 8 Hour Arthritis) 650 Mg Tab, 650 MG PO TID, #30 TAB Prov:CAMILLE HERNANDEZ 02/17/23 Methocarbamol (Methocarbamol) 750 Mg Tab, 750 MG PO BID, #20 TAB Prov:CAMILLE HERNANDEZ 02/17/23 Reported Medications Aspirin (Aspir-Low) 81 Mg Tab, 81 MG PO DAILY for 30 Days, MG 09/05/24 Atorvastatin Calcium (ATORVASTATIN CALCIUM) 10 Mg Tab, PO 09/05/24 Information Source: Patient Mode of Arrival: Ambulatory Severity: Moderate Timing: Days Duration: Since onset, Days Prehospital treatment: None Medication Refill: For: Other (REQUEST FOR MEDICATION) Past Medical History PAST MEDICAL HISTORY: Asthma, COPD, UTI'S Surgical History: Hysterectomy, Denies all surgeries PLANT CONTROLLER History: No Pertinent PLANT CONTROLLER History Family History Family History: Reviewed,noncontributory to illness Social History Smoker: Non-Smoker Alcohol: Denies ETOH Use Drugs: Denies Drug Use Lives In: Home Constitutional: denies: chills, diaphoresis, fatigue, fever, malaise, sweats, weakness, others EENTM: denies: blurred vision, double vision, ear bleeding, ear discharge, ear drainage, ear pain, ear ringing, eye pain, eye redness, hearing loss, mouth pain, mouth swelling, nasal discharge, nose bleeding, nose congestion, nose pain, photophobia, tearing, throat pain, throat swelling, voice changes, others Respiratory: denies: cough, hemoptysis, orthopnea, SOB at rest, shortness of breath, SOB with excertion, stridor, wheezing, others Cardiovascular: denies: chest pain, dizzy spells, diaphoresis, Dyspnea on exertion, edema, irregular heart beat, left arm pain, lightheadedness, palpitations, PND, syncope, others Gastrointestinal: denies: abdomen distended, abdominal pain, blood streaked bowels, constipated, diarrhea, dysphagia, difficulty swallowing, hematemesis, melena, nausea, poor appetite, poor fluid intake, rectal bleeding, rectal pain, vomiting, others Genitourinary: denies: abnormal vagina bleeding, burning, dyspareunia, dysuria, flank pain, frequency, hematuria, incontinence, pain, , vagina discharge, urgency, others Neurological: denies: dizziness, fainting, headache, left sided numbness, left sided weakness, numbness, paresthesia, pre-existing deficit, right sided numbness, right sided weakness, seizure, speech problems, tingling, tremors, weakness, others Musculoskeletal: denies: back pain, gout, joint pain, joint swelling, muscle pain, muscle stiffness, neck pain, others Integumetry: denies: bruises, change in color, change in hair/nails, dryness, laceration, lesions, lumps, rash, wounds, others Allergic/Immunocompromised: denies: Difficulty Healing, Frequent Infections, Hives, Itching, others Hematologic/Lymphatic: denies: anemia, blood clots, easy bleeding, easy bruising, swollen glands, others Endocrine: denies: excessive hunger, excessive sweating, excessive thirst, excessive urination, flushing, intolerance to cold, intolerance to heat, unexplained weight gain, unexplained weight loss, others Psychiatric: denies: anxiety, bipolar disorder, depression, hopeless, panic disorder, schizophrenia, sleepless, suicidal, others All Other Systems: Reviewed and Negative Physical Exam General Appearance: No Apparent Distress, Normal HEENT: Normal ENT Inspection, PERRL/EOMI, Pharynx Normal, TMs Normal Neck: Full Range of Motion, Non-Tender, Normal, Normal Inspection Respiratory: Chest Non-Tender, Lungs Clear, No Accessory Muscle Use, No Respiratory Distress, Normal Breath Sounds Cardiovascular: No Edema, No JVD, No Murmur, No Gallop, Normal Peripheral Pulses, Regular Rate/Rhythm Breast Exam: Deferred Gastrointestinal: No Organomegaly, Non Tender, No Pulsatile Mass, Normal Bowel Sounds, Soft Genitalia: Deferred Pelvic: Deferred Rectal: Deferred Extremities: No calf tenderness, Normal capillary refill, Normal inspection, Normal range of motion, Non-tender, No pedal edema Musculoskeletal : Apperance: Normal Neurologic: Alert, house carpenter helper II-XII nml as Tested, No Motor Deficits, Normal Affect, Normal Mood, No Sensory Deficits Cerebellar Function: Normal Reflexes: Normal Skin: Dry, Normal Color, Warm Peripheral Pulses: 2+ carotid (R), 2+ carotid (L) Lymphatic: No Adenopathy Was a procedure done? Was a procedure done?: No Differential Dx Considerations may include: MEDICATION ADMINISTERED, HX OF UTI X-Ray, Labs, Meds, VS Vital Signs Date Time Temp Pulse Resp B/P (MAP) Pulse Ox O2 Delivery O2 Flow Rate FiO2 09/11/24 11:37 97.5 126 22 157/94 (115) 89 Current Medications Medications (Trade) Dose Ordered Sig/Atilio Route Start Time Stop Time Status Last Admin Ertapenem 1 gm/ Sodium Chloride 50 ml @ 100 mls/hr ONCE ONCE IV 09/11/24 12:45 09/11/24 13:14 DC 09/11/24 13:02 X-Ray, Labs, Meds, VS Comment EXTERNAL NOTES: NONE INDEPENDENT HISTORIANS: NONE SOCIAL DETERMINANTS OF HEALTH: NONE LABS ORDERED: NONE REVIEWED AND INTERPRETED RESULTS: NONE IMAGING ORDERED: NONE TREATMENTS ORDERED: INVANZ 1G IV PATIENT'S CASE AND RESULTS HAVE BEEN DISCUSSED WITH THE ED ATTENDING PHYSICIAN AND THEY AGREE WITH MY PLAN OF CARE. I HAVE DISCUSSED IMAGING AND LAB RESULTS WITH THE PATIENT AND HAVE INSTRUCTED THE PATIENT TO FOLLOW UP WITH THEIR PCP IN 1-2 DAYS. THE PATIENT FULLY UNDERSTANDS THEIR RESULTS AND ARE AWARE THEY NEED TO FOLLOW UP WITH THEIR PCP FOR FURTHER EVALUATION IF THEIR SYMPTOMS PERSIST. Time of 1ST Reevaluation: 13:55 Reevaluation 1ST: Improved Patient Education/Counseling: Diagnosis, Treatment, Need For Follow Up Family Education/Counseling: Diagnosis, Treatment, Need For Follow Up Medical Screening: No EMC Exist At This Time Departure 1 Departure Time of Disposition: 14:00 Impression: Primary Impression: Medication administered Additional Impression: Hx of urinary tract infection Disposition: 01 HOME / SELF CARE / HOMELESS Condition: Stable Additional Instructions: FOLLOW UP WITH PCP IN 1-2 DAYS. RETURN TO ED FOR ANY NEW OR WORSENING SYMPTOMS. Discharged With: Self, Relative Critical Care Note Critical Care Time?: No Stability Stability form required: No I personally scribed for CAMILLE HERNANDEZ ([email or web address]) on 09/11/24 at 13:47. Electronically submitted by Maximo Browning ([email or web address]). CAMILLE HERNANDEZ Sep 11, 2024 13:47
== END 2024-09-11 13:52 | disposition home or self-care (01) ==
LOC: ER 11:19
DX: Z79.2 Long term (current) use of antibiotics (principal); Z87.440 Personal history of urinary (tract) infections; J44.89 Other specified chronic obstructive pulmonary disease; J45.909 Unspecified asthma, uncomplicated; Z90.710 Acquired absence of both cervix and uterus
CPT/HCPCS: 96365; 99284; J1335

== ENCOUNTER 2025-05-16 19:51 | Inpatient (IN) | payer MEDICAID ==
[~2025-05-16] VITALS: Ht 165.1 cm; Wt 53.4 kg
[2025-05-16] MEDS: MAGNESIUM SULFATE 1GM/100ML 100 ML IV ONE (20:00)
[2025-05-16] MEDS: methylPREDNISolone SOD SUCC 125 MG/2 ML VL IV ONE (20:00)
--- NOTE | 2025-05-16 20:08 | ED.PDOC ---
SOB-HPI HPI Comments 64-year-old female who came to ER via EMS for shortness of breath. Per EMS, patient does have history of COPD on 6 L/min. About 45 minutes prior to arrival, sudden onset of shortness a breath and wheezing. Was saturating 70s on room air. Patient was given albuterol treatment and placed on oxygen while EN route to the ER Chief Complaint: Shortness of Breath Time Seen by MD: 20:07 Primary Care Provider: UNKNOWN Reviewed notes: Nurses Notes Information Source: Patient, Emergency Med Personnel Mode of Arrival: EMS Severity: Moderate Timing: Hours Duration: Since onset Context: At Rest PE Risk Factors: None History of: Asthma, COPD Prehospital treatment: None Associated Signs and Symptoms: Wheeze, Cough Quality: Tightness Radiation: No Radiation Past Medical History PAST MEDICAL HISTORY: Asthma, COPD, UTI'S Surgical History: Hysterectomy, Denies all surgeries TURKEY ROLL MAKER History: No Pertinent TURKEY ROLL MAKER History Family History Family History: Reviewed,noncontributory to illness Social History Smoker: Non-Smoker Alcohol: Denies ETOH Use Drugs: Denies Drug Use Lives In: Home Constitutional: denies: chills, diaphoresis, fatigue, fever, malaise, sweats, weakness, others EENTM: denies: blurred vision, double vision, ear bleeding, ear discharge, ear drainage, ear pain, ear ringing, eye pain, eye redness, hearing loss, mouth pain, mouth swelling, nasal discharge, nose bleeding, nose congestion, nose pain, photophobia, tearing, throat pain, throat swelling, voice changes, others Respiratory: reports: SOB at rest, shortness of breath, SOB with excertion, wheezing; denies: cough, hemoptysis, orthopnea, stridor, others Cardiovascular: denies: chest pain, dizzy spells, diaphoresis, Dyspnea on exertion, edema, irregular heart beat, left arm pain, lightheadedness, palpi tations, PND, syncope, others Gastrointestinal: denies: abdomen distended, abdominal pain, blood streaked bowels, constipated, diarrhea, dysphagia, difficulty swallowing, hematemesis, melena, nausea, poor appetite, poor fluid intake, rectal bleeding, rectal pain, vomiting, others Genitourinary: denies: abnormal vagina bleeding, burning, dyspareunia, dysuria, flank pain, frequency, hematuria, incontinence, pain, , vagina discharge, urgency, others Neurological: denies: dizziness, fainting, headache, left sided numbness, left sided weakness, numbness, paresthesia, pre-existing deficit, right sided numbness, right sided weakness, seizure, speech problems, tingling, tremors, weakness, others Musculoskeletal: denies: back pain, gout, joint pain, joint swelling, muscle pain, muscle stiffness, neck pain, others Integumetry: denies: bruises, change in color, change in hair/nails, dryness, laceration, lesions, lumps, rash, wounds, others Allergic/Immunocompromised: denies: Difficulty Healing, Frequent Infections, Hives, Itching, others Hematologic/Lymphatic: denies: anemia, blood clots, easy bleeding, easy bru ising, swollen glands, others Endocrine: denies: excessive hunger, excessive sweating, excessive thirst, e xcessive urination, flushing, intolerance to cold, intolerance to heat, unexplained weight gain, unexplained weight loss, others Psychiatric: denies: anxiety, bipolar disorder, depression, hopeless, panic disorder, schizophrenia, sleepless, suicidal, others Physical Exam General Appearance: Moderate Distress HEENT: Normal ENT Inspection, Pharynx Normal, TMs Normal Neck: Full Range of Motion, Non-Tender, Normal, Normal Inspection Respiratory: Chest Non-Tender, Respiratory Distress, Wheezing Cardiovascular: No Edema, No JVD, No Murmur, No Gallop, Normal Peripheral Pulses, Regular Rate/Rhythm Breast Exam: Deferred Gastrointestinal: No Organomegaly, Non Tender, No Pulsatile Mass, Normal Bowel Sounds, Soft Genitalia: Deferred Pelvic: Deferred Rectal: Deferred Extremities: No calf tenderness, Normal capillary refill, Normal inspection, Normal range of motion, Non-tender, No pedal edema Musculoskeletal : Apperance: Normal Neurologic: Alert, body die maker II-XII nml as Tested, No Motor Deficits, Normal Affect, Normal Mood, No Sensory Deficits Cerebellar Function: Normal Reflexes: Normal Skin: Dry, Normal Color, Warm Lymphatic: No Adenopathy Was a procedure done? Was a procedure done?: No Differential Dx Differential Diagnosis: Anxiety, Asthma, COPD, Pneumonia, Respiratory Distress X-Ray, Labs, Meds, VS Vital Signs Date Time Temp Pulse Resp B/P (MAP) Pulse Ox O2 Delivery O2 Flow Rate FiO2 8/30/25 21:09 98.1 113 20 120/80 (93) 91 98.1 05/16/25 21:09 24 91 Simple Mask* 7 60 05/16/25 20:04 131 05/16/25 19:51 98.5 122 36 122/70 91 98.5 05/16/25 19:51 91 Non-Rebreather 15 N/A Lab Test 05/16/25 21:02 05/16/25 20:17 05/16/25 20:10 05/16/25 20:08 Range/Units Troponin I High Sensitivity 2081 *H 1209 *H </=34 ng/L White Blood Count 62.5 *H 4.4-10.8 10^3/uL Red Blood Count 5.02 4.0-5.20 10^6/uL Hemoglobin 15.4 12.2-16.2 g/dL Hematocrit 47.3 H 36.0-46.0 % Mean Corpuscular Volume 94.2 80.0-100.0 fL Mean Corpuscular Hemoglobin 30.7 28.0-32.0 pg Mean Corpuscular Hemoglobin Concent 32.6 32.0-36.0 g/dL Red Cell Distribution Width 14.5 H 11.8-14.3 % Platelet Count 640 H 140-450 10^3/uL Mean Platelet Volume 7.2 6.9-10.8 fL Neutrophils (%) (Auto) 37.0-80.0 % Lymphocytes (%) (Auto) 10.0-50.0 % Monocytes (%) (Auto) 0.0-12.0 % Basophils (%) (Auto) 0.0-2.0 % Neutrophils # (Auto) 1.6-8.6 10 ^3/uL Lymphocytes # (Auto) 0.4-5.4 10 ^3/uL Monocytes # (Auto) 0-1.3 10 ^3/uL Differential Total Cells Counted Pending Neutrophils % (Manual) Pending Band Neutrophils % (Manual) Pending Lymphocytes % (Manual) Pending Monocytes % (Manual) Pending Eosinophils % (Manual) Pending Basophils % (Manual) Pending Metamyelocytes % (manual) Pending Myelocytes % (Manual) Pending Promyelocytes % (Manual) Pending Blast Cells % (Manual) Pending Reactive Lymphocytes Pending Platelet Estimate Pending Lactic Acid Level 4.6 *H 0.4-2.0 mmol/L B-Type Natriuretic Peptide 67.38 0-100 pg/mL Sodium Level 140 136-145 mmol/L Potassium Level 3.9 3.5-5.1 mmol/L Chloride Level 105 98-107 mmol/L Carbon Dioxide Level 22 20-31 mmol/L Anion Gap 13 5-15 Blood Urea Nitrogen 6 L 9-23 mg/dL Creatinine 0.67 0.550-1.02 mg/dL Glomerular Filtration Rate Calc 99 >90 mL/min BUN/Creatinine Ratio 9.0 L 10.0-20.0 Serum Glucose 330 H 74-106 mg/dL Calcium Level 10.1 8.7-10.4 mg/dL Magnesium Level 2.6 1.6-2.6 mg/dL Total Bilirubin 0.6 0.2-1.0 mg/dL Aspartate Amino Transferase (AST) 36 13-40 U/L Alanine Aminotransferase (ALT) 14 7-40 U/L Alkaline Phosphatase 162 H 46-116 U/L Total Protein 6.8 5.7-8.2 g/dL Albumin 4.2 3.2-4.8 g/dL Blood Gas Specimen Type Venous Blood Gas Sample Site Vbg - n/a Blood Gas Patient Temperature 37.0 Arterial Blood Date Drawn [id number] Gurmeet Test N/a Venous Blood pH 7.031 *L 7.320-7.430 Venous Blood pCO2 at Patient Temp 119.2 *H 38.0-54.0 mmHg Venous Blood pO2 at Patient Temp < 36.5 23.0-48.0 mmHg Venous Blood HCO3 30.9 H 22.0-29.0 mmol/L Venous Blood Base Excess -3.7 L -2.0-3.0 mmol/L Blood Gas Liter Flow 6.00 Blood Gas Modality Nasal cannula FiO2 % 44.0 Specimen Drawn By Cpt evon Blood Gas Critical Value Read Back Yes Blood Gas Notified Whom kvng Gerardo md Blood Gas Notified Time [id number] Blood Gas Notified By lidia Cobb rrt Current Medications Medications (Trade) Dose Ordered Sig/Atilio Route Start Time Stop Time Status Last Admin Albuterol (Ventolin Medneb) 5 mg ONCE ONCE NEB 05/16/25 20:00 05/16/25 20:01 DC 05/16/25 20:10 Ipratropium [place] (Atrovent Medneb) 0.5 mg ONCE ONCE NEB 05/16/25 20:00 05/16/25 20:01 DC 05/16/25 20:10 Methylprednisolone Sodium Succinate (Solu Medrol) 125 mg ONCE ONCE IV 05/16/25 20:00 05/16/25 20:01 DC 05/16/25 20:00 Magnesium Sulfate/ Dextrose 100 ml @ 100 mls/hr ONCE ONCE IV 05/16/25 20:00 05/16/25 20:59 DC 05/16/25 20:00 EXAMINATION: XY CHEST PORTABLE CLINICAL HISTORY: SOB COMPARISON: XY CHEST XRAY 1 VIEW on DOS: 09/09/24, XY CHEST XRAY 1 VIEW on DOS: 09/06/24 FINDINGS: Lead wires overlie the thorax. Diffuse interstitial coarsening noted. Slight blunting of the left costophrenic angle. Median sternotomy changes. The cardiomediastinal silhouette appears within normal limits given technique. IMPRESSION: Relatively chronic appearing interstitial prominence which may reflect interstitial disease, edema and/or atypical infection. Please correlate clinically. SLight blunting of the left costophrenic angle which may indicate small pleural effusion and/or atelectasis/scarring. Time of 1ST Reevaluation: 20:05 Reevaluation 1ST: Unchanged Patient Education/Counseling: Diagnosis, Treatment Family Education/Counseling: No Family Present SEPSIS Sepsis Screen Physician Orders Electrocardigram (05/16/25 19:58) Troponin-I Hs (05/16/25 22:58) Electrocardigram (05/16/25 20:58) Electrocardigram (05/16/25 22:58) Complete Blood Count (05/16/25 20:01) Blood Culture (05/16/25 20:01) Chest Portable (05/16/25 20:01) Venous Blood Gas (05/16/25 20:01) Manual Differential (05/16/25 20:17) Midazolam Drip 50 Mg/50ml (Versed Drip 5 (05/16/25 22:00) Fentanyl Drip 2500mcg/250mlns (05/16/25 22:00) Rass Sedation Scale Q1HR (05/16/25 21:46) Vital Signs Date Time Temp Pulse Resp B/P (MAP) Pulse Ox O2 Delivery O2 Flow Rate FiO2 05/16/25 21:09 98.1 113 20 120/80 (93) 91 98.1 05/16/25 21:09 24 91 Simple Mask* 7 60 05/16/25 20:04 131 05/16/25 19:51 98.5 122 36 122/70 91 98.5 05/16/25 19:51 91 Non-Rebreather 15 N/A Laboratory Tests Test 05/16/25 20:17 Lactic Acid Level 4.6 mmol/L (0.4-2.0) *H White Blood Count 62.5 10^3/uL (4.4-10.8) *H Medications Medications Dose Ordered Sig/Atilio Route Start Time Stop Time Status Last Admin Dose Admin Albuterol 5 mg ONCE ONCE NEB 05/16/25 20:00 05/16/25 20:01 DC 05/16/25 20:10 Ipratropium [place] 0.5 mg ONCE ONCE NEB 05/16/25 20:00 05/16/25 20:01 DC 05/16/25 20:10 Magnesium Sulfate/ Dextrose 100 ml @ 100 mls/hr ONCE ONCE IV 05/16/25 20:00 05/16/25 20:59 DC 05/16/25 20:00 Methylprednisolone Sodium Succinate 125 mg ONCE ONCE IV 05/16/25 20:00 05/16/25 20:01 DC 05/16/25 20:00 Departure 1 Departure Time of Disposition: 21:56 Impression: Primary Impression: Acute respiratory failure Additional Impressions: COPD exacerbation Lymphocytosis Intermediate coronary syndrome Disposition: ADMITTED INPATIENT Admit to: ICU Condition: Critical Discharged With: Self Comments 64-year-old female with a history of COPD now a severe respiratory distress. Patient was given breathing treatments and Solu-Medrol and magnesium. Her pCO2 is very high at 119. Her pH is low at 7. Her white blood cell count is very high at 62. Her troponins are elevated at 1209 and then increase to 2081. Her blood glucose is elevated at 330. Initial lactic is elevated 4.6. Patient was given IV fluids and IV Zosyn antibiotics. Patient was intubated. Patient briefly lost her pulses and CPR was started. ACLS medications were given and she agreed regained pulses. A central line was placed. Critical Care Note Critical Care Time?: Yes (35 min-critical care time only) Critical care comment: Shortness of breath Stability Stability form required: No Heart Score Heart Score: Heart Score Response (Comments) Value History N/A 0 EKG N/A 0 Age N/A 0 Risk Factors N/A 0 Troponin N/A 0 Total 0 I personally scribed for JOSE GERARDO MD ([email or web address]) on 05/16/25 at 20:08. Electronically submitted by Nain Jenkins ([email or web address]). I personally scribed for JOSE GERARDO MD ([email or web address]) on 05/16/25 at 21:20. Electronically submitted by Nain Jenkins ([email or web address]). JOSE GERARDO MD May 16, 2025 20:08
[2025-05-16] MEDS: IPRATROPIUM BROM 0.5 MG/2.5ML INH SOL NEB ONE (20:10)
[2025-05-16] MEDS: ALBUTEROL SULF 2.5 MG/0.5ML(0.5%) NEB SOLN NEB ONE ×2 (20:10→20:30)
[2025-05-16 20:36] LABS: Hematocrit 47.3 % (36.0-46.0); Hemoglobin 15.4 g/dL (12.2-16.2); Mean Corpuscular Hemoglobin 30.7 pg (28.0-32.0); Mean Corpuscular Volume 94.2 fL (80.0-100.0)
[2025-05-16 20:41] LABS: Alanine Aminotransferase 14 U/L (7-40); Albumin 4.2 g/dL (3.2-4.8); Alkaline Phosphatase 162 U/L (46-116); Anion Gap 13 (5-15); BUN/Creatinine Ratio 9.0 (10.0-20.0); Bilirubin, Total 0.6 mg/dL (0.2-1.0); Blood Urea Nitrogen 6 mg/dL (9-23); Calcium 10.1 mg/dL (8.7-10.4); Carbon Dioxide 22 mmol/L (20-31); Chloride 105 mmol/L (98-107); Glucose 330 mg/dL (74-106); Magnesium 2.6 mg/dL (1.6-2.6); Potassium 3.9 mmol/L (3.5-5.1); Sodium 140 mmol/L (136-145); Total Protein 6.8 g/dL (5.7-8.2)
--- NOTE | 2025-05-16 20:55 | DVH ---
EXAMINATION: XY CHEST PORTABLE CLINICAL HISTORY: SOB COMPARISON: XY CHEST XRAY 1 VIEW on DOS: 09/09/24, XY CHEST XRAY 1 VIEW on DOS: 09/06/24 FINDINGS: Lead wires overlie the thorax. Diffuse interstitial coarsening noted. Slight blunting of the left costophrenic angle. Median sternot michael changes. The cardiomediastinal silhouette appears within normal limits given technique. IMPRESSION: Relatively chronic appearing interstitial prominence which may reflect interstitial disease, edema an d/or atypical infection. Please correlate clinically. SLight blunting of the left costophrenic angle which may indicate small pleural effusion and/or atele ctasis/scarring.
[2025-05-16 21:09] VITALS: RESP 24; O2SAT 91
[2025-05-16 21:31] LABS: Lactic Acid w/Reflex 4.6 mmol/L (0.4-2.0)
[2025-05-16] MEDS: ETOMIDATE (2MG/ML) 20ML VIAL IV ONE ×2 (21:52→22:30)
[2025-05-16] MEDS: ROCURONIUM 10MG/ML 10ML VIAL IV ONE ×2 (21:53→22:30)
[2025-05-16 21:58] LABS: Anisocytosis Moderate
[2025-05-16] MEDS: fentaNYL Drip 2500mCg/250mlNS 250 ML IV SCH (22:00)
[2025-05-16] MEDS: ATROPINE SULFATE 1 MG/1 ML VIAL ONE (22:01)
[2025-05-16 22:05] VITALS: BP 74/22; PULSE 151; RESP 22; O2SAT 90
[2025-05-16] MEDS: NOREPINEPHRINE 8 MG/250ML KIT 250 ML IV ONE (22:10)
[2025-05-16 22:11] LABS: Total Cells Counted 100.0 (100)
[2025-05-16] MEDS: NOREPINEPHRINE 8 MG/250ML KIT 250 ML IV SCH (22:11)
[2025-05-16] MEDS: EPINEPHrine HCL 250 ML IV ONE ×2 (22:12→22:14)
[2025-05-16] MEDS: MIDAZOLAM DRIP 50 mg/50mL 50 ML IV SCH (22:30)
[2025-05-16] MEDS ORDERED: NITROGLYCERIN 0.4 MG SL TAB SL PRN (22:30)
[2025-05-16] MEDS: SODIUM CHLORIDE 0.9% 250 ML IV ONE (22:30)
[2025-05-16] MEDS ORDERED: ONDANSETRON HCL 4 MG/2 ML VIAL IV PRN (22:30)
[2025-05-16] MEDS ORDERED: MORPHINE SULFATE INJ 2 MG/ml SYRG IV PRN (22:30)
[2025-05-16] MEDS ORDERED: DEXTROSE (50%) 50ML SYRG IV PRN (22:30)
[2025-05-16] MEDS ORDERED: VANCOMYCIN PER PHARMACY 0 MG IV SCH (22:30)
--- NOTE | 2025-05-16 22:39 | RESUS ---
CECILIA JEAN-BAPTISTE ASSESSSMENT History of Events History of Events: Pt presented to ER for COPD exacerbation, it was deemed pt needed intubation. After pt was intubated, pt heart rate went down and pulses lost. CPR initiated and CECILIA JEAN-BAPTISTE called. Initial Information Date: May 16, 2025 Time: 21:58 Location of Arrest: ER CPR started initial time: 21:58 CPR started by whom: Hospital Staff Pre-Hospital Care: Pre-Code Care (inpatient) Type of arrest: Cardiac, Respiratory, Adult, Witnessed Spontaneous Respirations: No Pulse Present: No Monitoring: ECG, Capnography, Telemetry Crash Cart Opened and Supplies: Yes Airway Ventilation Breathing at Onset: Assisted Oxygen Delivery Method: Mechanical Ventilator Time of first Assisted Ventila: 21:58 Artificial Ventilation: Bag/Endo tube Intubation Time: 21:51 Intubation Size: 7.5 cuffed Intubated by: Laverne Morgan - Resident Intubation Attempts: 1 Intubated orally: Yes Intubated Nasaly: No Tube secured at: 22 (cm @ teeth) Comments: Pt was intubated prior to code Circulation Circulation #1: Time: 21:58 Pulse Rate (adult): 0 Blood Pressure Systolic: 0 Blood Pressure Diastolic: 0 Temperature (Fahrenheit): 95.8 (F; rectal) Circulation #2: Time: 22:00 Pulse Rate (adult): 0 Blood Pressure Systolic: 0 Blood Pressure Diastolic: 0 Circulation Comment: No pulses palpable Circulation #3: Time: 22:02 Pulse Rate (adult): 0 Blood Pressure Systolic: 0 Blood Pressure Diastolic: 0 Circulation Comment: PEA Circulation #4: Time: 22:04 Pulse Rate (adult): 131 Blood Pressure Systolic: 31 Blood Pressure Diastolic: 19 Circulation Comment: ROSC Circulation #5: Time: 22:07 Pulse Rate (adult): 154 Blood Pressure Systolic: 27 Blood Pressure Diastolic: 11 Circulation #6: Time: 22:10 Pulse Rate (adult): 145 Blood Pressure Systolic: 74 Blood Pressure Diastolic: 22 Procedure - IV Procedure - IV #1: IV start time: 22:05 IV Side: Right IV Location: Forearm Anterior IV Catheter Type: Saline Lock IV Placed: In Hospital IV Placed by Debby Tavarez RN IV Gauge: 20 IV Line Care: Saline Flush Procedure - IV #2: IV Side: Right IV Location: Wrist IV Catheter Type: Saline Lock IV Placed: In Hospital IV Gauge: 20 Comment IV placed prior to code Medications & Response Medications and Responses #1: Medication Time: 21:59 ADULT Medications Given ADULT: Epinephrine 1 mg, Sodium Bacarbinate 50 meq Route of Administration: IV Heart Rate: 0 Blood Pressure Systolic: 0 Blood Pressure Diastolic: 0 Respiratory Rate: 0 Medications and Responses #2: Medication Time: 22:02 ADULT Medications Given ADULT: Epinephrine 1 mg Route of Administration: IV Heart Rate: 0 Blood Pressure Systolic: 0 Blood Pressure Diastolic: 0 Respiratory Rate: 0 Medications and Responses #3: Medication Time: 22:04 ADULT Medications Given ADULT: Sodium Bacarbinate 50 meq Route of Administration: IV Heart Rate: 131 EKG Rhythm: Sinus Tachycardia Blood Pressure Systolic: 31 Blood Pressure Diastolic: 19 Nurses Notes [place] Coma Scale Eye Opening: None (1) [place] Coma Scale Verbal: None (1) [place] Coma Scale Motor: None (1) [place] Total: 3 Pupil Reaction: Non Reactive Bedside Blood Glucose: 251 EKG Rhythm: Sinus Tachycardia (Sinus Tachy with PVCs, acute PA @ 2208 with HR 146) Time Code Ended Time Code Ended: 22:04 Post Arrest Status: Ventilated Outcome of code: Successful Code Team Present: Dr Martell - ER MD; Kleber, Resident; Laverne Morgan, Resident; Luis Quinteros RN - ER Charge; Micheline Rich RN - Surgical Scrub Technologist; Sofia Alcantara RN; Debby Tavarez, RN; Escobar Dorado, RT; Liliana Alcantara, ERT; Raul Gauthier, Nurse Automobile Spring Repairer Post Resuscitation Neurologica Pupil Size: 3 Comment: Fixed and non-reactive ROSC Time of ROSC: 22:04 Micheline Arevalo May 16, 2025 22:39
--- NOTE | 2025-05-16 22:39 | DVHNC2 ---
Procedure - INDICATION: airway protection PROCEDURE SHELF DRIER OPERATOR: Resident Eddie ATTENDING PHYSICIAN: Dr. Martell CONSENT: During the informed consent discussion regarding the procedure, or treatment, I explained the following to the patient's son/designee: a. Nature of the procedure or treatment and who will perform the procedure or treatment. b. Necessity for procedure and the possible benefits. c. Risks and complications (most common and serious). d. Alternative treatments and the risks, benefits and side effects of each (including no treatment). e. Likelihood of the patient achieving his/her goals without this procedure and surgery treatment. f. Problems that might occur during the recuperation. g. Conflicts of interest, if any PROCEDURE SUMMARY: A time out was performed. My hands were washed immediately prior to the procedure. I wore a surgical cap, mask with protective eyewear, gown and gloves throughout the procedure. The patient was placed on a teletypesetter monitor including continuous pulse oximetry. Rapid Sequence Intubation was conducted. The patient received 100 mg of rocuronium and 20 mg of etomidate. Cricoid pressure was maintained from time induction agent was given to time of cuff balloon inflation. Using a video laryngoscope and a 7.5 cm endotracheal tube with stylet, the patient was intubated on the first attempt. The stylet was removed and cuff balloon was inflated. Appropriate endotracheal tube position was confirmed by direct visualization of vocal cord passage, fogging of the tube, CO2 colormetric indicator and symmetric breath sounds. The tube was secured at 22cm cm at the lips. Post intubation chest x-ray shows interval insertion of ETT with its tip approximately 5 cm above the rohan. ALISHA OSEI RESIDENT May 16, 2025 22:39
--- NOTE | 2025-05-16 22:48 | DVHHP2 ---
History of Present Illness Reason for Visit: Acute respiratory failure History of Present Illness The patient is a 64-year-old female with past medical history of UTIs, asthma, and COPD who presented to [facility] the [facility] ED with complaint of shortness of breaths. Patient's condition progressively get worse with increased sudden onset of shortness of breaths, wheezing, desaturating on room air in the 70s, increased work of breathing, generalized weakness, unrelieved with breathing treatment and subsequently intubated. Patient was seen and evaluated in the ED, laboratory data shows WBC 62.5, platelets 640, sodium 140, potassium 3.9, BUN 6, creatinine 0.67, GFR 99, glucose 330, hemoglobin A1c 4.2, lactic acid 4.6, calcium 10.1, troponin 1209 trending up, BNP 67.38, blood pressure 120/80, heart rate 131 trending down to 112, temperature 98.1 F, O2 saturation 98% on ventilator. Chest x-ray revealing relatively chronic appearing interstitial p rominence which may reflect interstitial disease, edema and/or atypical infection. Patient was started on IV antibiotic regimen Zosyn, please see medication orders section in the computer. On my assessment, patient is fully intubated, no diaphoresis, no diarrhea, no vomiting, no fever, no chills. Patient was admitted for further evaluation and medical management. Past Medical History Asthma, COPD, UTI'S Past Surgical History Hysterectomy Family History Reviewed, noncontributory to the management of this case. Past Social History The patient lives at home, denies smoking, alcohol or illicit drugs abuse. Review of Systems Constitutional: Yes: Weakness; No: Fever, Chills, Sweats, Malaise, Other Eyes: No: Pain, Vision change, Conjunctivae inflammation, Eyelid inflammation, Other, Redness ENT: No: Ear pain, Ear discharge, Nose pain, Nose discharge, Nose congestion, Mouth pain, Mouth swelling, Throat pain, Throat swelling, Other Respiratory: Shortness of breath, SOB with excertion, Wheezing, Other (SOB at rest); No: Cough, Dry, Hemoptysis, Pleuritic Pain, Sputum, Wheezing Cardiovascular: No: Chest Pain, Palpitations, Orthopnea, Paroxysmal Noc. Dyspnea, Edema, Lt Headedness, Other Gastrointestinal: No: Nausea, Vomiting, Abdominal Pain, Diarrhea, Constipation, Melena, Hematochezia, Other Genitourinary: No Dysuria, No Frequency, No Incontinence, No Hematuria, No Retention, No Other Musculoskeletal: No: other, neck pain, shoulder pain, arm pain, back pain, hand pain, leg pain, foot pain Skin: No: Rash, Lesions, Jaundice, Bruising, Other Neurological: Weakness; No: Numbness, Incoordination, Change in speech, Confusion, Seizures, Other Allergies: Coded Allergies: NO KNOWN ALLERGIES (Unverified , 02/17/23) Medications Current Medications Medications Dose Ordered Sig/Atilio Route Start Time Stop Time Status Last Admin Dose Admin Midazolam HCl 50 ml @ 1 mls/hr Q24H IV 05/16/25 22:00 Fentanyl Citrate 250 ml @ 2.5 mls/hr Q24H IV 05/16/25 22:00 Piperacillin Sod/ Tazobactam Sod 100 ml @ 25 mls/hr Q8HR IV 05/17/25 06:00 UNV Vancomycin HCl 0 ml @ 0 mls/hr UD IV 05/16/25 22:30 UNV Enoxaparin Sodium 50 mg Q12HR SC 05/17/25 10:00 UNV Famotidine 20 mg Q12HR IV 05/17/25 10:00 UNV Diagnostic Test (Pha) 1 strip Q6HR 05/17/25 00:00 UNV Insulin Human Regular Q6HR SC 05/17/25 00:00 UNV Dextrose 50 ml UD PRN IV 05/16/25 22:30 UNV Ondansetron HCl 4 mg Q4HP PRN IV 05/16/25 22:30 UNV Nitroglycerin 0.4 mg Q5MINP PRN SL 05/16/25 22:30 UNV Morphine Sulfate 2 mg Q30M PRN IV 05/16/25 22:30 UNV Exam Vital Signs Vital Signs Date Time Temp Pulse Resp B/P (MAP) Pulse Ox O2 Delivery O2 Flow Rate FiO2 05/16/25 22:39 Mechanical Ventilator 145 05/16/25 22:05 74/22 (39) 90 100 05/16/25 21:09 7 General Appearance: Other (Fully intubated) HEENT: Atraumatic, PERRLA, EOMI, Mucous membr. moist/pink Respiratory: Other (On ventilator) Cardiovascular: Regular rate, Normal S1, Normal S2, No murmurs Abdominal: Normal bowel sounds, Soft, No tenderness, No hepatospenomegaly, No masses Extremities: No clubbing, No cyanosis, No edema, Normal pulses, No tenderness/swelling Skin: No rashes, No significant lesion Neuro: Reflexes 2+, Other (Altered level of consciousness) Psych/Mental Status: Other (Unobtainable) Labs/Xrays Labs Test 05/16/25 22:13 05/16/25 21:02 05/16/25 20:17 05/16/25 20:10 Range/Units Lactic Acid Level 5.3 *H 0.4-2.0 mmol/L Troponin I High Sensitivity 2081 *H </=34 ng/L White Blood Count 62.5 *H 4.4-10.8 10^3/uL Red Blood Count 5.02 4.0-5.20 10^6/uL Hemoglobin 15.4 12.2-16.2 g/dL Hematocrit 47.3 H 36.0-46.0 % Mean Corpuscular Volume 94.2 80.0-100.0 fL Mean Corpuscular Hemoglobin 30.7 28.0-32.0 pg Mean Corpuscular Hemoglobin Concent 32.6 32.0-36.0 g/dL Red Cell Distribution Width 14.5 H 11.8-14.3 % Platelet Count 640 H 140-450 10^3/uL Mean Platelet Volume 7.2 6.9-10.8 fL Neutrophils (%) (Auto) 37.0-80.0 % Lymphocytes (%) (Auto) 10.0-50.0 % Monocytes (%) (Auto) 0.0-12.0 % Basophils (%) (Auto) 0.0-2.0 % Neutrophils # (Auto) 1.6-8.6 10 ^3/uL Lymphocytes # (Auto) 0.4-5.4 10 ^3/uL Monocytes # (Auto) 0-1.3 10 ^3/uL Differential Total Cells Counted 100.0 100 Neutrophils % (Manual) 53 37.0-80.0 Band Neutrophils % (Manual) 14 Lymphocytes % (Manual) 16 10.0-50.0 Monocytes % (Manual) 11 0-12 Eosinophils % (Manual) 0 0-7 Basophils % (Manual) 0 0.0-2.0 Metamyelocytes % (manual) 4 Myelocytes % (Manual) 2 Promyelocytes % (Manual) 0 Blast Cells % (Manual) 0 Reactive Lymphocytes 0 Platelet Estimate Increased Large Platelets Few Anisocytosis (manual) Moderate Target Cells B-Type Natriuretic Peptide 67.38 0-100 pg/mL Sodium Level 140 136-145 mmol/L Potassium Level 3.9 3.5-5.1 mmol/L Chloride Level 105 98-107 mmol/L Carbon Dioxide Level 22 20-31 mmol/L Anion Gap 13 5-15 Blood Urea Nitrogen 6 L 9-23 mg/dL Creatinine 0.67 0.550-1.02 mg/dL Glomerular Filtration Rate Calc 99 >90 mL/min BUN/Creatinine Ratio 9.0 L 10.0-20.0 Serum Glucose 330 H 74-106 mg/dL Calcium Level 10.1 8.7-10.4 mg/dL Magnesium Level 2.6 1.6-2.6 mg/dL Total Bilirubin 0.6 0.2-1.0 mg/dL Aspartate Amino Transferase (AST) 36 13-40 U/L Alanine Aminotransferase (ALT) 14 7-40 U/L Alkaline Phosphatase 162 H 46-116 U/L Total Protein 6.8 5.7-8.2 g/dL Albumin 4.2 3.2-4.8 g/dL Test 05/16/25 20:08 Range/Units Blood Gas Specimen Type Venous Blood Gas Sample Site Vbg - n/a Blood Gas Patient Temperature 37.0 Arterial Blood Date Drawn [id number] Gurmeet Test N/a Venous Blood pH 7.031 *L 7.320-7.430 Venous Blood pCO2 at Patient Temp 119.2 *H 38.0-54.0 mmHg Venous Blood pO2 at Patient Temp < 36.5 23.0-48.0 mmHg Venous Blood HCO3 30.9 H 22.0-29.0 mmol/L Venous Blood Base Excess -3.7 L -2.0-3.0 mmol/L Blood Gas Liter Flow 6.00 Blood Gas Modality Nasal cannula FiO2 % 44.0 Specimen Drawn By [facility] evon Blood Gas Critical Value Read Back Yes Blood Gas Notified Whom kvng Gerardo md Blood Gas Notified Time [id number] Blood Gas Notified By lidia Cobb, jessica PATIENT: DARIUS LUCEROCCT: [id number] UNIT: [id number] : 1960 LOC: ER ROOM / BED: / AGE / SEX: 64 / F ADM STATUS: REG ER SERVICE 00 ORDERING PHYSICIAN: JOSE GERARDO MD PROCEDURE(s): CXRP - CHEST PORTABLE REASON: SOB ORDER NUMBER(s): [id number], ACCESSION NUMBER(s): [id number] EXAMINATION: XY CHEST PORTABLE CLINICAL HISTORY: SOB COMPARISON: XY CHEST XRAY 1 VIEW on DOS: 09/09/24, XY CHEST XRAY 1 VIEW on DOS: 09/06/24 FINDINGS: Lead wires overlie the thorax. Diffuse interstitial coarsening noted. Slight blunting of the left costophrenic angle. Median sternotomy changes. The cardiomediastinal silhouette appears within normal limits given technique. IMPRESSION: Relatively chronic appearing interstitial prominence which may reflect interstitial disease, edema and/or atypical infection. Please correlate clinically. SLight blunting of the left costophrenic angle which may indicate small pleural effusion and/or atelectasis/scarring. ORDERING PHYSICIAN: JOSE GERARDO MD PROCEDURE(s): CXR1 - CHEST XRAY 1 VIEW REASON: STAT FOR ET PLACEMENT ORDER NUMBER(s): [id number], ACCESSION NUMBER(s): [id number] CHEST RADIOGRAPH Indication: STAT FOR ET PLACEMENT Technique: Single frontal view of the chest was obtained COMPARISON: XY CHEST PORTABLE on DOS: 05/16/25 FINDINGS/IMPRESSION: Interval insertion of ETT with its tip approximately 5 cm above the rohan and right IJ central venous catheter with its tip projecting over SVC. NG tube extends below the diaphragm though its tip is not visualized on this study. The remainder of the study appears stable compared to the prior chest x-ray from approximately 2 hours earlier the same day really looks like you left. SEPSIS Sepsis Screen Date sepsis recognized/suspect: May 16, 2025 Time Sepsis recognized/suspect: 2110 Recent Procedure: No On Antibiotic Therapy: No Respiratory Rate >20: Yes Heart Rate >90: No Temp<36 C (96.8 F) or >38.3 C: No SBP <90 or MAP <65 mmHG: No New Acute Mental Status Change: No Is the patient on CPAP, BIPAP,: No Physician Orders Electrocardigram (05/16/25 19:58) Troponin-I Hs (05/16/25 22:58) Electrocardigram (05/16/25 20:58) Electrocardigram (05/16/25 22:58) Blood Culture (05/16/25 20:01) Chest Portable (05/16/25 20:01) Venous Blood Gas (05/16/25 20:01) Midazolam Drip 50 Mg/50ml (Versed Drip 5 (05/16/25 22:00) Fentanyl Drip 2500mcg/250mlns (05/16/25 22:00) Rass Sedation Scale Q1HR (05/16/25 21:46) Chest Xray 1 View (05/16/25 21:55) Abg W/ Co-Ox (05/16/25 23:00) Respiratory Culture W/ Gs (05/16/25 22:02) Ventilator Orders (05/16/25 22:01) BIPAP (05/16/25 21:35) Anaya Catheters (05/16/25 ) Ngt/Ogt (05/16/25 ) Piperacillin-Tazob 3.375gm (Zosyn 3.375g (05/17/25 06:00) Vancomycin Per Pharmacy (05/16/25 22:30) Sodium Chloride 0.9% (05/16/25 22:30) Enoxaparin Sodium (Lovenox) (05/16/25 22:30) Enoxaparin Sodium (Lovenox) (05/17/25 10:00) * Cardiology Consult (05/16/25 22:27) *Consult / (05/16/25 22:27) Famotidine Injection (Pepcid Injection) (05/17/25 10:00) Famotidine Injection (Pepcid Injection) (05/16/25 22:30) Glucose Blood (Accu-Chek Comfort Curve T (05/17/25 00:00) Insulin R (Human) (Insulin R) (05/17/25 00:00) Dextrose 50% Syringe (05/16/25 22:30) Admit (05/16/25 22:27) Allergies (05/16/25 22:27) Code Status (05/16/25 22:27) Oxygen Per Hour (05/16/25 22:27) Ondansetron Hcl (Zofran) (05/16/25 22:30) Fall Risk Precautions In Place QSHIFT (05/16/25 22:27) Complete Blood Count (05/17/25 04:00) Comprehensive Metabolic Panel (05/17/25 04:00) Npo (Nothing By Mouth) Diet (05/17/25 Breakfast) Condition: Critical (05/16/25 22:27) Maintain Bed Rest (05/16/25 22:27) Sequential Compression Device (05/16/25 ) Nitroglycerin Sublingual (Ntrostat Subli (05/16/25 22:30) Morphine Sulfate Injection (05/16/25 22:30) Stat Ekg For Chest Pain (05/16/25 22:27) Notify Md Of Changes From Base (05/16/25 22:27) Hold Worker For 24 Hours (05/16/25 22:27) Emergency Dysrhythmia Protocol (05/16/25 22:27) Rhythm Strips Once Every Shift (05/16/25 22:27) Oxygen By Nasal Cannula (05/16/25 22:27) Hemoglobin A1c (05/16/25 22:27) * Hematology/Oncology Consult (05/16/25 22:27) Vital Signs Date Time Temp Pulse Resp B/P (MAP) Pulse Ox O2 Delivery O2 Flow Rate FiO2 05/16/25 22:39 Mechanical Ventilator 145 05/16/25 22:08 146 05/16/25 22:05 151 22 74/22 (39) 90 100 05/16/25 21:09 98.1 113 20 120/80 (93) 91 98.1 05/16/25 21:09 24 91 Simple Mask* 7 60 05/16/25 20:04 131 05/16/25 19:51 98.5 122 36 122/70 91 98.5 05/16/25 19:51 91 Non-Rebreather 15 N/A Laboratory Tests Test 05/16/25 20:17 05/16/25 22:13 Lactic Acid Level 4.6 mmol/L (0.4-2.0) *H 5.3 mmol/L (0.4-2.0) *H White Blood Count 62.5 10^3/uL (4.4-10.8) *H Medications Medications Dose Ordered Sig/Atilio Route Start Time Stop Time Status Last Admin Dose Admin Albuterol 5 mg ONCE ONCE NEB 05/16/25 20:00 05/16/25 20:01 DC 05/16/25 20:10 5 MG Ipratropium Benezett 0.5 mg ONCE ONCE NEB 05/16/25 20:00 05/16/25 20:01 DC 05/16/25 20:10 0.5 MG Magnesium Sulfate/ Dextrose 100 ml @ 100 mls/hr ONCE ONCE IV 05/16/25 20:00 05/16/25 20:59 DC 05/16/25 20:00 100 MLS/HR Methylprednisolone Sodium Succinate 125 mg ONCE ONCE IV 05/16/25 20:00 05/16/25 20:01 DC 05/16/25 20:00 125 MG Assessment/Plan Assessment/Plan Acute respiratory failure COPD with acute exacerbation Lymphocytosis Thrombocytosis Hyperglycemia Generalized weakness Intermediate coronary syndrome Sepsis, unspecified organism Plan 1. Admit to intensive care unit 2. Breathing treatment 3. Pain control management 4. IV antibiotic management 5. Management of fluids and electrolytes 6. Consultation for chain link fence installer/cardiology 7. Diagnostic test chest x-ray 8. DVT prophylaxis on Lovenox 9. Repeat labs CBC, CMP in a.m. 10. Home medication reviewed and reconciled 11. Continue with current medical management 12. Treatment plan discussed with patient and RN. Patient is fully intubated. Plan discussed with: Patient, Other (RN) My Orders Orders - EDIL MACK DNP Procedure Category Date Status Time Anaya Catheters ED NURSING 05/16/25 Transmitted Ngt/Ogt ED NURSING 05/16/25 Transmitted Piperacillin-Tazob PHA 05/17/25 Logged 3.375gm (Zosyn 3.375g 06:00 Vancomycin Per PHA 05/16/25 Logged Pharmacy 22:30 Sodium Chloride 0.9% PHA 05/16/25 Logged 22:30 Enoxaparin Sodium PHA 05/16/25 Logged (Lovenox) 22:30 Enoxaparin Sodium PHA 05/17/25 Logged (Lovenox) 10:00 * Cardiology Consult CONS 05/16/25 Transmitted 22:27 *Consult CONS 05/16/25 Transmitted / 22:27 Famotidine Injection PHA 05/17/25 Logged (Pepcid Injection) 10:00 Famotidine Injection PHA 05/16/25 Logged (Pepcid Injection) 22:30 Glucose Blood PHA 05/17/25 Logged (Accu-Chek Comfort 00:00 Insulin R (Human) PHA 05/17/25 Logged (Insulin R) 00:00 Dextrose 50% Syringe PHA 05/16/25 Logged 22:30 Admit ADMIT 05/16/25 Transmitted 22:27 Allergies LUIS ARMANDO 05/16/25 In Process 22:27 Code Status CODE 05/16/25 Transmitted 22:27 Oxygen Per Hour RT 05/16/25 Transmitted 22:27 Ondansetron Hcl PHA 05/16/25 Logged (Zofran) 22:30 Fall Risk Precautions LUIS ARMANDO 05/16/[address] 22:27 Complete Blood Count LAB 05/17/25 Verified 04:00 Comprehensive LAB 05/17/25 Verified Metabolic Panel 04:00 Npo (Nothing By DIET 05/17/25 Transmitted Mouth) Diet Breakfast Condition: Critical LUIS ARMANDO 05/16/25 In Process 22:27 Maintain Bed Rest LUIS ARMANDO 05/16/25 In Process 22:27 Sequential LUIS ARMANDO 05/16/25 In Process Compression Device Nitroglycerin PHA 05/16/25 Logged Sublingual (Ntrostat 22:30 Morphine Sulfate PHA 05/16/25 Logged Injection 22:30 Stat Ekg For Chest LUIS ARMANDO 05/16/25 In Process Pain 22:27 Notify Of Changes LUIS ARMANDO 05/16/25 In Process From Base 22:27 Hold Worker For LUIS ARMANDO 05/16/25 In Process 24 Hours 22:27 Emergency Dysrhythmia LUIS ARMANDO 05/16/25 In Process Protocol 22:27 Rhythm Strips Once LUIS ARMANDO 05/16/25 In Process Every Shift 22:27 Oxygen By Nasal RT 05/16/25 Transmitted Cannula 22:27 Hemoglobin A1c LAB 05/16/25 In Process 22:27 * Hematology/Oncology CONS 05/16/25 Transmitted Consult 22:27 Problem List: (1) Acute respiratory failure (2) COPD with acute exacerbation (3) Lymphocytosis (4) Thrombocytosis (5) Hyperglycemia (6) Generalized weakness (7) Intermediate coronary syndrome (8) Sepsis, unspecified organism Date of Service: May 16, 2025 Billing Provider: EDIL MAKC DNP Common Visit Codes: [id number] INP/OBS CARE (HIGH), [id number] CARE- EACH +30MIN EDIL MACK DNP May 16, 2025 22:48
--- NOTE | 2025-05-16 23:22 | DVH ---
CHEST RADIOGRAPH Indication: STAT FOR ET PLACEMENT Technique: Single frontal view of the chest was obtained COMPARISON: XY CHEST PORTABLE on DOS: 05/16/25 FINDINGS / IMPRESSION: Interval insertion of ETT with its tip approximately 5 cm above the rohan and right IJ central venou s catheter with its tip projecting over SVC. NG tube extends below the diaphragm though its tip is no t visualized on this study. The remainder of the study appears stable compared to the prior chest x-ray from approximately 2 hour s earlier the same day really looks like you left.
[2025-05-16 23:23] LABS: Base Excess -1.0 mmol/L (-2.0-3.0)
[2025-05-16] MEDS: VANCOMYCIN 1GM/250ML KIT IV ONE (23:30)
[2025-05-17] VITALS (109 sets, daily range): BP systolic 84–141; BP diastolic 47–99; PULSE 96–133; RESP 20–28; TEMP 97.9–100.8; O2SAT 69–100
[2025-05-17] MEDS: ACCU-CHEK COMFORT CURVE STRIP VI SCH
[2025-05-17] MEDS ORDERED: ACETAMINOPHEN 650 MG RECT SUPP PR PRN
--- NOTE | 2025-05-17 00:37 | DVHNC2 ---
Central Line Recorder of insertion practice: Steeping Press Tender Indication: Hypotension, CVP monitoring, Volume resuscitation, Inability to obtain IV Room prepared for procedure: Yes Steeping Press Tender performed hand hygien: Yes Maximal sterile barrier precau: Mask/Eye shield, Sterile gown, Cap, Sterlie gloves, Large sterlie drape Skin Preparation: Chlorhexidine gluconate Skin preparation completely dr: Yes Insertion site: Right, Internal jugular, Line secured Central line catheter type: [id number] dialysis Number of lumens: 3 Central line exchanged over a: Yes Antiseptic ointment applied to: Yes Post Assessment: Chest X-Ray, Proper placement Informed consent obtained: No Risks/benefits/alt described: No Notes Urgent line, status post ROSC Date of Service: May 16, 2025 Billing Provider: JOSE GERARDO MD Common Visit Codes: PROCEDURE ONLY Procedure Codes: [id number] NON-TUNNEL CV CATH STEPHAN RUBIN RESIDENT May 17, 2025 00:36
[2025-05-17] MEDS: FAMOTIDINE (10MG/ML) 2ML VL IV ONE (00:59)
[2025-05-17] MEDS: ENOXAPARIN SOD 60 MG/0.6 ML SYRINGE SC ONE (01:00)
[2025-05-17] MEDS: InsuLIN REG 1unit/0.01ml Soln (100units/ml) SC SCH (01:04)
--- NOTE | 2025-05-17 03:14 | DVH ---
EXAM: CT HEAD WITHOUT CONTRAST INDICATION: S/p CPR. Unequal pupils TECHNIQUE: CT of the head without intravenous contrast. Radiation Dose : 1. Head: CT Dose: CTDI volume is 52.14 mGy. Dose-length product is 923.38 mGy*cm The dose indicators for CT are the volume Computed Tomography (CT) Dose Index (CTDIvol) and the Dose Length Product (DLP), and are measured in units of mGy and mGy-cm, respectively. These indicators are not patient dose, but values generated from the CT scanner acquisition factors. The report includes radiation exposure data for exposures received during this examination. COMPARISON: None FINDINGS: There is no evidence of acute intracranial hemorrhage, extra-axial collection, mass effect, midline s hift, herniation or hydrocephalus. The ventricles, sulci and cisterns are age appropriate. The brantley-white differentiation is intact. Diffuse confluent periventricular and subcortical white matter hypoattenuation is nonspecific but may be related to small vessel ischemic disease. The visualized paranasal sinuses and mastoid air cells are clear. The surrounding soft tissues and osseous structures are unremarkable. Nasogastric tube. IMPRESSION: 1. No acute intracranial abnormality. 2. Chronic sequelae of microvascular disease. Radiation optimization: All CT scans at this facility use at least one of these dose optimization mikel hniques: automated exposure control mA and/or kV adjustment per patient size (includes targeted exam s where dose is matched to clinical indication) or iterative reconstruction.
[2025-05-17 04:22] LABS: Hematocrit 47.6 % (36.0-46.0); Hemoglobin 16.1 g/dL (12.2-16.2); Mean Corpuscular Hemoglobin 30.8 pg (28.0-32.0); Mean Corpuscular Volume 91.2 fL (80.0-100.0)
[2025-05-17 05:10] LABS: Alanine Aminotransferase 34 U/L (7-40); Albumin 4.1 g/dL (3.2-4.8); Anion Gap 11 (5-15); BUN/Creatinine Ratio 26.8 (10.0-20.0); Blood Urea Nitrogen 15 mg/dL (9-23); Calcium 9.6 mg/dL (8.7-10.4); Carbon Dioxide 29 mmol/L (20-31); Chloride 104 mmol/L (98-107); Sodium 144 mmol/L (136-145); Total Protein 6.2 g/dL (5.7-8.2)
[2025-05-17 05:20] LABS: Alkaline Phosphatase 183 U/L (46-116); Bilirubin, Total 1.8 mg/dL (0.2-1.0); Glucose 207 mg/dL (74-106); Potassium 3.0 mmol/L (3.5-5.1)
[2025-05-17] MEDS: POTASSIUM CHL 20MEQ/100ML 100 ML IV SCH (06:09)
[2025-05-17] MEDS: PIPERACILLIN-TAZOB 3.375GM 100 ML IV SCH (06:11)
[2025-05-17 06:19] LABS: COVID19 ANTIGEN SOFIA FIA NEGATIVE (NEGATIVE)
[2025-05-17 07:04] LABS: Base Excess -0.5 mmol/L (-2.0-3.0)
[2025-05-17 08:00] LABS: RBC Morphology Normal; Total Cells Counted 100.0 (100)
[2025-05-17] MEDS: ENOXAPARIN SOD 60 MG/0.6 ML SYRINGE SC SCH (09:32)
[2025-05-17] MEDS: FAMOTIDINE (10MG/ML) 2ML VL IV SCH (09:32)
--- NOTE | 2025-05-17 11:44 | DVHINCON2 ---
Date of service: May 17, 2025 Referring Physician Alan Reason for Consultation Status post CPR History of Present Illness Ms. 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 In the emergency room, the patient was company to have respiratory failure, and when she was going through intubation, she had cardio pulmonary arrest for about 5 minutes. CBC, 05/16/2021: Respiratory acidosis, 05/17/2025: Respiratory acidosis WBC/HB/PLT/MCV, 05/16/2025: 62.5/15. 4/640/94.2, 05/17/2025: 72.6/16.1/520/91.2 BUN/CR, 05/17/2025: 15/0.56 GFR, 05/17/2025: 103 Lactic acid, 05/16/25: 5.3 HGB A1c, 05/16/2025: 4.2 Troponin one high sensitivity, 05/16/2025: 1209, 2081, 4211 TBI/AST/ALT/AP, 05/17/2025: 1.8/86/25/183 CT head, 05/17/2025: 1. No acute intracranial abnormality. 2. Chronic sequelae of microvascular disease. Past Medical History Dyslipidemia, asthma, aortic stenosis, COPD, myeloproliferative disorder, myotonic muscular dystrophy Past Surgical History SAVR, hysterectomy Family History: FH: CHF (congestive heart failure) G8 MOTHER FH: aneurysm G8 MOTHER FH: muscular dystrophy G8 FATHER Hypertension G8 MOTHER Family History Hypertension, heart disease, myotonic muscular dystrophy Social History She was a tobacco smoke, but no history of drug/alcohol abuse Allergies: Coded Allergies: NO KNOWN ALLERGIES (Unverified , 02/17/23) Home Meds Active Scripts Prednisone (Prednisone) 20 Mg Tab, 20 MG PO BID for 6 Days, #6 MG 10 mg twice a day x 3 days 10 mg once a day x 3 days Prov:YULIA WEBB [facility] OF [facility] 09/05/23 Doxycycline (Monohydrate) (Doxycycline) 100 Mg Cap, 100 MG PO BID for 7 Days, #14 CAP Prov:YULIA WEBB [facility] OF [facility]CT 09/05/23 Acetaminophen (Tylenol 8 Hour Arthritis) 650 Mg Tab, 650 MG PO TID, #30 TAB Prov:CAMILLE HERNANDEZ 02/17/23 Methocarbamol (Methocarbamol) 750 Mg Tab, 750 MG PO BID, #20 TAB Prov:CAMILLE HERNANDEZ 02/17/23 Reported Medications Aspirin (Aspir-Low) 81 Mg Tab, 81 MG PO DAILY for 30 Days, MG 09/05/24 Atorvastatin Calcium (ATORVASTATIN CALCIUM) 10 Mg Tab, PO 09/05/24 Current Medications Current Medications Medications (Trade) Dose Ordered Sig/Atilio Route PRN Reason Start Time Stop Time Status Last Admin Midazolam HCl 50 ml @ 1 mls/hr Q24H IV 05/16/25 22:00 05/17/25 09:32 Fentanyl Citrate 250 ml @ 2.5 mls/hr Q24H IV 05/16/25 22:00 05/17/25 05:12 Piperacillin Sod/ Tazobactam Sod 100 ml @ 25 mls/hr Q8HR IV 05/17/25 06:00 05/17/25 06:11 Vancomycin HCl 0 ml @ 0 mls/hr UD IV 05/16/25 22:30 Enoxaparin Sodium (Lovenox) 50 mg Q12HR SC 05/17/25 10:00 05/17/25 09:32 Famotidine (Pepcid Injection) 20 mg Q12HR IV 05/17/25 10:00 05/17/25 09:32 Diagnostic Test (Pha) (Accu-Chek Comfort Curve T) 1 strip Q6HR 05/17/25 00:00 05/17/25 06:11 Insulin Human Regular (InsuLIN R) Q6HR SC 05/17/25 00:00 05/17/25 06:13 Dextrose 50 ml UD PRN IV Blood Sugar LESS THAN 60 05/16/25 22:30 Ondansetron HCl (Zofran) 4 mg Q4HP PRN IV NAUSEA / VOMITING 05/16/25 22:30 Nitroglycerin (Ntrostat Sublingual) 0.4 mg Q5MINP PRN SL FOR CHEST PAIN 05/16/25 22:30 Morphine Sulfate 2 mg Q30M PRN IV FOR CHEST PAIN 05/16/25 22:30 Acetaminophen (Tylenol Suppository) 650 mg Q6HP PRN [place] PAIN SCALE 1-3 OR TEMP>100.4 05/17/25 00:00 Norepinephrine Bitartrate 250 ml @ 3.75 mls/hr Q24H IV 05/17/25 22:11 05/16/25 22:11 Potassium Chloride 100 ml @ 50 mls/hr Q2H IV 05/17/25 05:45 05/17/25 09:44 DC 05/17/25 08:07 Review of Systems As above, the other systems are negative Vital Signs Vital Signs Date Time Temp Pulse Resp B/P (MAP) Pulse Ox O2 Delivery O2 Flow Rate FiO2 05/17/25 11:00 84/51 05/17/25 10:06 106 22 97 40 05/17/25 10:00 Mechanical Ventilator+ 05/17/25 07:15 99.7 211.5 05/16/25 21:09 7 Physical Exam The patient is well-nourished and well-developed with no distress. The patient is intubated HEENT: Normocephalic, neck supple, no carotid bruits Lungs: Clear to auscultation Cardiovascular: Regular rate and region, S1, S2, no murmurs Abdomen: Soft, nontender, normal bowel sounds MENTAL STATUS: HGB I CRANIAL NERVES: Pupils are round and nonreactive, very smoke, possibly right- sided bigger. There are corneal reflexes and doll's eyes phenomenon. No signs of facial weakness. There are gagging or coughing reflexes SENSATION: Responses to pain stimuli. MOTOR: Normal tone in the upper and lower extremity. Normal muscle bulk. No fasciculations. No spontaneous movement. REFLEXES: Deep tendon reflexes are symmetrical. No pathological reflexes. CEREBELLAR/COORDINATION: Deferred GAIT/STATION: deferred. Labs/Diagnostic Data Labs Test 05/17/25 06:47 05/17/25 05:53 05/17/25 05:11 05/17/25 03:35 Range/Units Blood Gas Specimen Type Arterial Blood Gas Sample Site Right radial Blood Gas Patient Temperature 37.0 Arterial Blood Date Drawn [id number] Arterial Blood pH 7.315 L 7.350-7.450 Arterial Blood Partial Pressure CO2 53.8 H 32.0-45.0 mmHg Arterial Blood Partial Pressure O2 94.2 83.0-108.0 mmHg Arterial Blood HCO3 26.8 21.0-28.0 mmol/L Arterial Blood Oxygen Saturation 97.1 94.0-98.0 % Arterial Blood Base Excess -0.5 -2.0-3.0 mmol/L Arterial Blood Oxyhemoglobin 96.1 94.0-98.0 % Arterial Blood Carboxyhemoglobin 0.7 0.5-1.5 % Arterial Blood Methemoglobin 0.3 0.0-1.5 % Gurmeet Test Modified Blood Gas Total Hemoglobin 16.70 H 12.0-16.0 g/dL Blood Gas Set Respiration Rate 22.0 Blood Gas Modality Vent - ac FiO2 % 40.0 Blood Gas Tidal Volume 400.0 Blood Gas PEEP or CPAP 5.0 POC Glucose 161 H 70-106 mg/dl Influenza Type A Antigen Negative Negative Influenza Type B Antigen Negative Negative SARS-CoV-2 Antigen (Rapid) Negative NEGATIVE White Blood Count 72.6 *H 4.4-10.8 10^3/uL Red Blood Count 5.21 H 4.0-5.20 10^6/uL Hemoglobin 16.1 12.2-16.2 g/dL Hematocrit 47.6 H 36.0-46.0 % Mean Corpuscular Volume 91.2 80.0-100.0 fL Mean Corpuscular Hemoglobin 30.8 28.0-32.0 pg Mean Corpuscular Hemoglobin Concent 33.8 32.0-36.0 g/dL Red Cell Distribution Width 14.1 11.8-14.3 % Platelet Count 520 H 140-450 10^3/uL Mean Platelet Volume 7.5 6.9-10.8 fL Neutrophils (%) (Auto) 37.0-80.0 % Lymphocytes (%) (Auto) 10.0-50.0 % Monocytes (%) (Auto) 0.0-12.0 % Basophils (%) (Auto) 0.0-2.0 % Neutrophils # (Auto) 1.6-8.6 10 ^3/uL Lymphocytes # (Auto) 0.4-5.4 10 ^3/uL Monocytes # (Auto) 0-1.3 10 ^3/uL Differential Total Cells Counted 100.0 100 Neutrophils % (Manual) 65 37.0-80.0 Band Neutrophils % (Manual) 19 Lymphocytes % (Manual) 0 L 10.0-50.0 Monocytes % (Manual) 9 0-12 Eosinophils % (Manual) 0 0-7 Basophils % (Manual) 0 0.0-2.0 Metamyelocytes % (manual) 2 Myelocytes % (Manual) 5 Promyelocytes % (Manual) 0 Blast Cells % (Manual) 0 Reactive Lymphocytes 0 Platelet Estimate Increased Red Blood Cell Morphology Normal Sodium Level 144 136-145 mmol/L Potassium Level 3.0 L 3.5-5.1 mmol/L Chloride Level 104 98-107 mmol/L Carbon Dioxide Level 29 20-31 mmol/L Anion Gap 11 5-15 Blood Urea Nitrogen 15 9-23 mg/dL Creatinine 0.56 0.550-1.02 mg/dL Glomerular Filtration Rate Calc 103 >90 mL/min BUN/Creatinine Ratio 26.8 H 10.0-20.0 Serum Glucose 207 H 74-106 mg/dL Calcium Level 9.6 8.7-10.4 mg/dL Total Bilirubin 1.8 H 0.2-1.0 mg/dL Aspartate Amino Transferase (AST) 86 H 13-40 U/L Alanine Aminotransferase (ALT) 34 7-40 U/L Alkaline Phosphatase 183 H 46-116 U/L Total Protein 6.2 5.7-8.2 g/dL Albumin 4.1 3.2-4.8 g/dL Test 05/16/25 23:15 05/16/25 23:12 05/16/25 22:13 05/16/25 20:17 Range/Units Blood Gas Critical Value Read Back Yes Blood Gas Notified Whom Md. kvng zamora Blood Gas Notified Time [id number] Blood Gas Notified By Rt lindsey das Troponin I High Sensitivity 4211 *H </=34 ng/L Lactic Acid Level 5.3 *H 0.4-2.0 mmol/L Large Platelets Few Anisocytosis (manual) Moderate Target Cells Hemoglobin A1c 4.2 <5.7 % A1C B-Type Natriuretic Peptide 67.38 0-100 pg/mL Test 05/16/25 20:10 05/16/25 20:08 Range/Units Magnesium Level 2.6 1.6-2.6 mg/dL Venous Blood pH 7.031 *L 7.320-7.430 Venous Blood pCO2 at Patient Temp 119.2 *H 38.0-54.0 mmHg Venous Blood pO2 at Patient Temp < 36.5 23.0-48.0 mmHg Venous Blood HCO3 30.9 H 22.0-29.0 mmol/L Venous Blood Base Excess -3.7 L -2.0-3.0 mmol/L Blood Gas Liter Flow 6.00 Specimen Drawn By Cpt evon Assessment Cardiopulmonary arrest Coma Metabolic encephalopathy Hypoxic encephalopathy Toxic encephalopathy Acute respiratory failure Chronic respiratory failure/COPD on home oxygen Elevated troponin one high sensitivity/heart attack Myeloproliferative disorder Plan/Recommendation Monitoring Supportive treatment ICU care Follow-up CT brain scan on 05/18/2025 Follow up labs Stabilize vitals/pressor drip Respiratory support/vent management Oxygen IV antibiotics DVT prophylaxis/Lovenox GI prophylaxis/famotidine More recommendation per clinical course Progress: Guarded Critical care time spent 45 minutes This medical document was created using an electronic medical record system with [employer] computerized dictation system. Although this document has been carefully reviewed, there may still be some phonetic and typographical errors. These areas are purely typographical due to imperfections of the software programs, and do not reflect any compromise in the patient's medical care. Plan discussed with: Karime Landa QUANWEI MD May 17, 2025 11:43
[2025-05-17] MEDS: ACETAMINOPHEN 650 mg PER 20.3 mL UD GT PRN (12:10)
[2025-05-17] MEDS: IPRATROPIUM BROM 0.5 MG/2.5ML INH SOL NEB SCH (12:22)
[2025-05-17] MEDS: methylPREDNISolone SOD SUCC 125 MG/2 ML VL IV SCH (13:50)
--- NOTE | 2025-05-17 13:54 | DVHPN2 ---
Subjective 64-year-old female with past medical history of UTIs, asthma, and COPD who presented to [facility] ED with complaint of shortness of breaths. Patient's condition progressively get worse with increased sudden onset of shortness of breaths, wheezing, desaturating on room air in the 70s, increased work of breathing, generalized weakness, unrelieved with breathing treatment and subsequently intubated. Patient was seen and evaluated in the ED, laboratory data shows WBC 62.5, platelets 640, sodium 140, potassium 3.9, BUN 6, creatinine 0.67, GFR 99, glucose 330, hemoglobin A1c 4.2, lactic acid 4.6, calcium 10.1, troponin 1209 trending up, BNP 67.38, blood pressure 120/80, heart rate 131 trending down to 112, temperature 98.1 F, O2 saturation 98% on ventilator. Chest x-ray revealing relatively chronic appearing interstitial prominence which may reflect interstitial disease, edema and/or atypical infection. Patient was started on IV antibiotic regimen Zosyn, please see medication orders section in the computer. On my assessment, patient is fully intubated, no diaphoresis, no diarrhea, no vomiting, no fever, no chills. Patient was admitted for further evaluation and medical management. Past Medical History Asthma, COPD, UTI'S 05/17: Patient had coded yesterday for 5 minutes least. Patient was intubated. Currently patient has acute hypoxemic respiratory failure, on history of COPD. Patient is sitting duo nebs and steroids. No feeding right now patient was just intubated less than 24 hours there is some Troponinemia. Patient's family had endorsed to RN and the patient has history of myeloproliferative disorder and muscular dystrophy. Reviewed: Care Plan Changes from previous H/P or p: No Changes General: Per HPI Eyes: No Pain, No Vision change, No Conjunctivae inflammation, No Eyelid inflammation, No Other, No Redness ENT: No Ear pain, No Ear discharge, No Nose pain, No Nose discharge, No Nose congestion, No Mouth pain, No Mouth swelling, No Throat pain, No Throat swelling, No Other Cardiovascular: No Chest Pain, No Palpitations, No Orthopnea, No Paroxysmal Noc. Dyspnea, No Edema, No Lt Headedness, No Other Respiratory: No Cough, No Dry; Shortness of breath, SOB with excertion, W heezing; No Hemoptysis, No Pleuritic Pain, No Sputum; Other (SOB at rest) Gastrointestinal: No Nausea, No Vomiting, No Abdominal Pain, No Diarrhea, No Constipation, No Melena, No Hematochezia, No Other Genitourinary: No Dysuria, No Frequency, No Incontinence, No Hematuria, No Retention, No Other Musculoskeletal: No other, No neck pain, No shoulder pain, No arm pain, No back pain, No hand pain, No leg pain, No foot pain Skin: No Rash, No Lesions, No Jaundice, No Bruising, No Other Objective Vitals Vital Signs Date Time Temp Pulse Resp B/P (MAP) Pulse Ox O2 Delivery O2 Flow Rate FiO2 05/17/25 12:10 100.6 05/17/25 12:00 100 05/17/25 12:00 40 05/17/25 12:00 22 95 Mechanical Ventilator+ 05/17/25 11:53 97/67 (77) 05/16/25 21:09 7 Intake/Output Intake and Output 05/17/25 06:59 Intake Total 336.93 ml Output Total 150 ml Balance 186.93 ml Intake IV Total 336.93 ml Output Urine Total 150 ml Exam General Appearance: Other (Fully intubated) HEENT: Atraumatic, PERRLA, EOMI, Mucous membr. moist/pink Respiratory: Other (On ventilator) Cardiovascular: Regular rate, Normal S1, Normal S2, No murmurs Abdominal: Normal bowel sounds, Soft, No tenderness, No hepatospenomegaly, No masses Extremities: No clubbing, No cyanosis, No edema, Normal pulses, No tenderness/swelling Skin: No rashes, No significant lesion Neuro: Reflexes 2+, Other (Altered level of consciousness) Psych/Mental Status: Other (Unobtainable) Medications Current Medications Medications Dose Ordered Sig/Atilio Route Start Time Stop Time Status Last Admin Dose Admin Midazolam HCl 50 ml @ 1 mls/hr Q24H IV 05/16/25 22:00 05/17/25 09:32 2 MLS/HR Fentanyl Citrate 250 ml @ 2.5 mls/hr Q24H IV 05/16/25 22:00 05/17/25 05:12 2.5 MLS/HR Piperacillin Sod/ Tazobactam Sod 100 ml @ 25 mls/hr Q8HR IV 05/17/25 06:00 05/17/25 06:11 25 MLS/HR Vancomycin HCl 0 ml @ 0 mls/hr UD IV 05/16/25 22:30 Enoxaparin Sodium 50 mg Q12HR SC 05/17/25 10:00 05/17/25 09:32 50 MG Famotidine 20 mg Q12HR IV 05/17/25 10:00 05/17/25 09:32 20 MG Diagnostic Test (Pha) 1 strip Q6HR 05/17/25 00:00 05/17/25 12:04 1 STRIP Insulin Human Regular Q6HR SC 05/17/25 00:00 05/17/25 06:13 3 UNITS Dextrose 50 ml UD PRN IV 05/16/25 22:30 Ondansetron HCl 4 mg Q4HP PRN IV 05/16/25 22:30 Nitroglycerin 0.4 mg Q5MINP PRN SL 05/16/25 22:30 Morphine Sulfate 2 mg Q30M PRN IV 05/16/25 22:30 Norepinephrine Bitartrate 250 ml @ 3.75 mls/hr Q24H IV 05/17/25 22:11 05/16/25 22:11 18.75 MLS/HR Acetaminophen 650 mg Q6HP PRN GT 05/17/25 11:45 05/17/25 12:10 650 MG Ipratropium [place] 0.5 mg Q6HR NEB 05/17/25 12:00 05/17/25 12:22 0.5 MG Budesonide 0.5 mg BID NEB 05/17/25 22:00 Albuterol 2.5 mg Q6HR NEB 05/17/25 18:00 Methylprednisolone Sodium Succinate 60 mg BID IV 05/17/25 12:30 05/17/25 13:50 60 MG Laboratory Results Laboratory Tests 05/17/25 03:35 Chemistry Test 05/16/25 20:10 05/17/25 03:35 Albumin 4.2 g/dL (3.2-4.8) 4.1 g/dL (3.2-4.8) Calcium Level 10.1 mg/dL (8.7-10.4) 9.6 mg/dL (8.7-10.4) Magnesium Level 2.6 mg/dL (1.6-2.6) Total Protein 6.8 g/dL (5.7-8.2) 6.2 g/dL (5.7-8.2) Cardiac Markers Test 05/16/25 20:17 B-Type Natriuretic Peptide 67.38 pg/mL (0-100) LFT Test 05/16/25 20:10 05/17/25 03:35 Alanine Aminotransferase (ALT) 14 U/L (7-40) 34 U/L (7-40) Alkaline Phosphatase 162 U/L (46-116) H 183 U/L (46-116) H Aspartate Amino Transferase (AST) 36 U/L (13-40) 86 U/L (13-40) H Total Bilirubin 0.6 mg/dL (0.2-1.0) 1.8 mg/dL (0.2-1.0) H HgA1c, TSH Test 05/16/25 20:17 Hemoglobin A1c 4.2 % A1C (<5.7) Blood Gas Results Test 05/16/25 20:08 05/16/25 23:15 05/17/25 06:47 FiO2 % 44.0 100.0 40.0 Arterial Blood pH 7.275 (7.350-7.450) 7.315 (7.350-7.450) Microbiology Microbiology Date/Time Source Procedure Growth Status 05/16/25 22:02 Sputum Gram Stain - Final Resulted 05/16/25 22:02 Sputum Respiratory Culture - Preliminary Resulted Labs and/or images reviewed: Labs reviewed by me, Image(s) reviewed by me Assessment/Plan Assessment/Plan Acute hypoxemic respiratory failure due to below, requiring mechanical ventilation Status post cardiac arrest COPD with acute exacerbation Pneumonia, Gram-negative Gram-positive likely Myeloproliferative disorder? Leukocytosis, likely myeloproliferative disorder Thrombocytosis, likely myeloproliferative disorder Generalized weakness Hyperglycemia Hyperbilirubinemia Hypokalemia, repleted ALP elevated Plan: Mechanically ventilated, palm consulted for vent management Duo nebs q.6 Azithromycin Stopped ceftriaxone Vancomycin Zosyn Lovenox DVT prophylaxis famotidine 20 q.12h GI prophylaxis Solu-Medrol 60 IV b.i.d. Levophed ICU Full code Plan discussed with: Other My Orders Orders - CARL SIMPSON MD Procedure Category Date Status Time Albuterol Medneb PHA 05/17/25 In Process (Ventolin Medneb) 18:00 Methylprednisolone PHA 05/17/25 In Process Sod Succ (Solu Medrol 12:30 Date of Service: May 17, 2025 Billing Provider: CARL SIMPSON MD Common Visit Codes: [id number] CARE 30-74 MIN CARL SIMPSON MD May 17, 2025 13:54
[2025-05-17] MEDS: SODIUM CHLORIDE 0.9% 1,000 ML IV ONE (15:59)
[2025-05-17] MEDS: AZITHROMYCIN 500MG/ 250ML 250 ML IV SCH (15:59)
[2025-05-17] MEDS: ALBUTEROL SULF 2.5 MG/0.5ML(0.5%) NEB SOLN NEB SCH (17:54)
[2025-05-17] MEDS: BUDESONIDE (INHALATION) 0.5 MG/2 ML NEB NEB SCH (21:52)
--- NOTE | 2025-05-17 22:22 | DVHINCON2 ---
Date of service: May 16, 2025 Referring Physician WENDY Colunga Reason for Consultation COPD exacerbation, vent management. History of Present Illness A 64-year-old woman with past medical history of COPD, asthma and UTIs, who presented to ED on 05/16/25 with complaint of shortness of breath. Patient's condition progressively worsened with increased sudden onset of shortness of breath, wheezing, desaturating on room air in the 70s, increased work of breathing, and generalized weakness, sx unrelieved with breathing treatment. Patient subsequently required intubation and placement on mechanical ventilator. ED workup included labs showing WBC 62.5, platelets 640, sodium 140, potassium 3.9, BUN 6, creatinine 0.67, GFR 99, glucose 330, hemoglobin A1c 4.2, lactic acid 4.6, calcium 10.1. Troponin 1209, trending up, BNP 67.38. Initial vitals showed BP 120/80, heart rate 131 trending down to 112, temperature 98.1 F, O2 saturation 98% on ventilator. Chest x-ray revealing relatively chronic appearing interstitial prominence which may reflect interstitial disease, edema and/or atypical infection. Patient was admitted for further care. Pulmonary consultation is requested for evaluation and management due to COPD exacerbation and acute hypoxic respiratory failure requiring mechanical ventilator. Review of Systems: Unable to obtain d/t intubated status. Past Medical History Asthma, COPD, UTI's Past Surgical History Hysterectomy Medications: Reviewed. Allergies: No known drug allergies. Family History: Congestive heart failure Aneurysm Muscular dystrophy Hypertension. Social History: Nonsmoker. No alcohol or illicit drug use. Family History: FH: CHF (congestive heart failure) G8 MOTHER FH: aneurysm G8 MOTHER FH: muscular dystrophy G8 FATHER Hypertension G8 MOTHER Allergies: Coded Allergies: NO KNOWN ALLERGIES (Unverified , 02/17/23) Home Meds Active Scripts Prednisone (Prednisone) 20 Mg Tab, 20 MG PO BID for 6 Days, #6 MG 10 mg twice a day x 3 days 10 mg once a day x 3 days Prov:YULIA WEBB [employer] 09/05/23 Doxycycline (Monohydrate) (Doxycycline) 100 Mg Cap, 100 MG PO BID for 7 Days, #14 CAP Prov:YULIA WEBB [employer] 09/05/23 Acetaminophen (Tylenol 8 Hour Arthritis) 650 Mg Tab, 650 MG PO TID, #30 TAB Prov:CAMILLE HERNANDEZ 02/17/23 Methocarbamol (Methocarbamol) 750 Mg Tab, 750 MG PO BID, #20 TAB Prov:CAMILLE HERNANDEZ 02/17/23 Reported Medications Aspirin (Aspir-Low) 81 Mg Tab, 81 MG PO DAILY for 30 Days, MG 09/05/24 Atorvastatin Calcium (ATORVASTATIN CALCIUM) 10 Mg Tab, PO 09/05/24 Current Medications Current Medications Medications (Trade) Dose Ordered Sig/Atilio Route PRN Reason Start Time Stop Time Status Last Admin Midazolam HCl 50 ml @ 1 mls/hr Q24H IV 05/16/25 22:00 05/17/25 09:32 Fentanyl Citrate 250 ml @ 2.5 mls/hr Q24H IV 05/16/25 22:00 05/17/25 05:12 Piperacillin Sod/ Tazobactam Sod 100 ml @ 25 mls/hr Q8HR IV 05/17/25 06:00 05/17/25 13:52 Vancomycin HCl 0 ml @ 0 mls/hr UD IV 05/16/25 22:30 Enoxaparin Sodium (Lovenox) 50 mg Q12HR SC 05/17/25 10:00 05/17/25 09:32 Famotidine (Pepcid Injection) 20 mg Q12HR IV 05/17/25 10:00 05/17/25 09:32 Diagnostic Test (Pha) (Accu-Chek Comfort Curve T) 1 strip Q6HR 05/17/25 00:00 05/17/25 17:35 Insulin Human Regular (InsuLIN R) Q6HR SC 05/17/25 00:00 05/17/25 17:34 Dextrose 50 ml UD PRN IV Blood Sugar LESS THAN 60 05/16/25 22:30 Ondansetron HCl (Zofran) 4 mg Q4HP PRN IV NAUSEA / VOMITING 05/16/25 22:30 Nitroglycerin (Ntrostat Sublingual) 0.4 mg Q5MINP PRN SL FOR CHEST PAIN 05/16/25 22:30 Morphine Sulfate 2 mg Q30M PRN IV FOR CHEST PAIN 05/16/25 22:30 Acetaminophen (Tylenol Suppository) 650 mg Q6HP PRN GA PAIN SCALE 1-3 OR TEMP>100.4 05/17/25 00:00 05/17/25 11:47 DC Norepinephrine Bitartrate 250 ml @ 3.75 mls/hr Q24H IV 05/17/25 22:11 05/17/25 16:33 Potassium Chloride 100 ml @ 50 mls/hr Q2H IV 05/17/25 05:45 05/17/25 09:44 DC 05/17/25 08:07 Acetaminophen (Tylenol Solution Oral) 650 mg Q6HP PRN GT PAIN SCALE 1-3 OR TEMP>100.4 05/17/25 11:45 05/17/25 18:12 Ipratropium [place] (Atrovent Medneb) 0.5 mg Q6HR NEB 05/17/25 12:00 05/17/25 17:55 Budesonide (Pulmicort) 0.5 mg BID NEB 05/17/25 22:00 05/17/25 21:52 Albuterol (Ventolin Medneb) 2.5 mg Q6HR NEB 05/17/25 18:00 05/17/25 17:54 Methylprednisolone Sodium Succinate (Solu Medrol) 60 mg BID IV 05/17/25 12:30 05/17/25 13:50 Ceftriaxone Sodium 50 ml @ 100 mls/hr DAILY@09 IV 05/17/25 15:51 05/17/25 18:28 DC 05/17/25 15:53 Azithromycin 250 ml @ 125 mls/hr DAILY IV 05/17/25 15:51 05/17/25 15:59 Vital Signs Vital Signs Date Time Temp Pulse Resp B/P (MAP) Pulse Ox O2 Delivery O2 Flow Rate FiO2 05/17/25 21:00 112/74 05/17/25 20:30 100.2 108 22 96 212.4 05/17/25 20:00 Mechanical Ventilator+ 40 40 05/16/25 21:09 7 Physical Exam Gen.: Patient lying in bed in medical ICU. Sedated, intubated on mechanical ventilator. Head: Normocephalic, atraumatic. Eyes: PERRLA. Ears: Normal external anatomy. Throat: Endotracheal tube and orogastric tube in place. Neck: Supple, trachea midline. Chest: Transmitted breath sounds bilaterally. Decreased air entry bilaterally. No wheezing. Bibasilar crackles. Cardiovascular: Positive S1, positive S2. Regular rate and rhythm. Abdomen: Positive bowel sounds in all 4 quadrants. Soft, nontender, nondistended. : Anaya in place. Normal external genitalia. Rectal: Deferred. Skin: Warm, dry. Intact. Extremities: 2+ radial pulses bilaterally. No lower extremity edema. Neuro: Sedated. Labs/Diagnostic Data Labs Test 05/17/25 17:13 05/17/25 06:47 05/17/25 05:11 05/17/25 03:35 Range/Units POC Glucose 161 H 70-106 mg/dl Blood Gas Specimen Type Arterial Blood Gas Sample Site Right radial Blood Gas Patient Temperature 37.0 Arterial Blood Date Drawn [id number] Arterial Blood pH 7.315 L 7.350-7.450 Arterial Blood Partial Pressure CO2 53.8 H 32.0-45.0 mmHg Arterial Blood Partial Pressure O2 94.2 83.0-108.0 mmHg Arterial Blood HCO3 26.8 21.0-28.0 mmol/L Arterial Blood Oxygen Saturation 97.1 94.0-98.0 % Arterial Blood Base Excess -0.5 -2.0-3.0 mmol/L Arterial Blood Oxyhemoglobin 96.1 94.0-98.0 % Arterial Blood Carboxyhemoglobin 0.7 0.5-1.5 % Arterial Blood Methemoglobin 0.3 0.0-1.5 % Gurmeet Test Modified Blood Gas Total Hemoglobin 16.70 H 12.0-16.0 g/dL Blood Gas Set Respiration Rate 22.0 Blood Gas Modality Vent - ac FiO2 % 40.0 Blood Gas Tidal Volume 400.0 Blood Gas PEEP or CPAP 5.0 Influenza Type A Antigen Negative Negative Influenza Type B Antigen Negative Negative SARS-CoV-2 Antigen (Rapid) Negative NEGATIVE White Blood Count 72.6 *H 4.4-10.8 10^3/uL Red Blood Count 5.21 H 4.0-5.20 10^6/uL Hemoglobin 16.1 12.2-16.2 g/dL Hematocrit 47.6 H 36.0-46.0 % Mean Corpuscular Volume 91.2 80.0-100.0 fL Mean Corpuscular Hemoglobin 30.8 28.0-32.0 pg Mean Corpuscular Hemoglobin Concent 33.8 32.0-36.0 g/dL Red Cell Distribution Width 14.1 11.8-14.3 % Platelet Count 520 H 140-450 10^3/uL Mean Platelet Volume 7.5 6.9-10.8 fL Neutrophils (%) (Auto) 37.0-80.0 % Lymphocytes (%) (Auto) 10.0-50.0 % Monocytes (%) (Auto) 0.0-12.0 % Basophils (%) (Auto) 0.0-2.0 % Neutrophils # (Auto) 1.6-8.6 10 ^3/uL Lymphocytes # (Auto) 0.4-5.4 10 ^3/uL Monocytes # (Auto) 0-1.3 10 ^3/uL Differential Total Cells Counted 100.0 100 Neutrophils % (Manual) 65 37.0-80.0 Band Neutrophils % (Manual) 19 Lymphocytes % (Manual) 0 L 10.0-50.0 Monocytes % (Manual) 9 0-12 Eosinophils % (Manual) 0 0-7 Basophils % (Manual) 0 0.0-2.0 Metamyelocytes % (manual) 2 Myelocytes % (Manual) 5 Promyelocytes % (Manual) 0 Blast Cells % (Manual) 0 Reactive Lymphocytes 0 Platelet Estimate Increased Red Blood Cell Morphology Normal Sodium Level 144 136-145 mmol/L Potassium Level 3.0 L 3.5-5.1 mmol/L Chloride Level 104 98-107 mmol/L Carbon Dioxide Level 29 20-31 mmol/L Anion Gap 11 5-15 Blood Urea Nitrogen 15 9-23 mg/dL Creatinine 0.56 0.550-1.02 mg/dL Glomerular Filtration Rate Calc 103 >90 mL/min BUN/Creatinine Ratio 26.8 H 10.0-20.0 Serum Glucose 207 H 74-106 mg/dL Calcium Level 9.6 8.7-10.4 mg/dL Total Bilirubin 1.8 H 0.2-1.0 mg/dL Aspartate Amino Transferase (AST) 86 H 13-40 U/L Alanine Aminotransferase (ALT) 34 7-40 U/L Alkaline Phosphatase 183 H 46-116 U/L Total Protein 6.2 5.7-8.2 g/dL Albumin 4.1 3.2-4.8 g/dL Test 05/16/25 23:15 05/16/25 23:12 05/16/25 22:13 05/16/25 20:17 Range/Units Blood Gas Critical Value Read Back Yes Blood Gas Notified Whom Md. kvng zamora Blood Gas Notified Time [id number] Blood Gas Notified By Rt lindsey das Troponin I High Sensitivity 4211 *H </=34 ng/L Lactic Acid Level 5.3 *H 0.4-2.0 mmol/L Large Platelets Few Anisocytosis (manual) Moderate Target Cells Hemoglobin A1c 4.2 <5.7 % A1C B-Type Natriuretic Peptide 67.38 0-100 pg/mL Test 05/16/25 20:10 05/16/25 20:08 Range/Units Magnesium Level 2.6 1.6-2.6 mg/dL Venous Blood pH 7.031 *L 7.320-7.430 Venous Blood pCO2 at Patient Temp 119.2 *H 38.0-54.0 mmHg Venous Blood pO2 at Patient Temp < 36.5 23.0-48.0 mmHg Venous Blood HCO3 30.9 H 22.0-29.0 mmol/L Venous Blood Base Excess -3.7 L -2.0-3.0 mmol/L Blood Gas Liter Flow 6.00 Specimen Drawn By Cpt evon Microbiology Date/Time Source Procedure Growth Status 05/17/25 01:30 Nose MRSA Screen - Final Complete 05/16/25 22:02 Sputum Gram Stain - Final Resulted 05/16/25 22:02 Sputum Respiratory Culture - Preliminary Resulted 05/16/25 20:09 Blood Blood Culture - Preliminary NO GROWTH AFTER 24 HOURS OF INCUBATION. Resulted Assessment Impression: Acute hypoxic respiratory failure Acute on chronic hypercarbic respiratory failure On mechanical ventilator Acute COPD exacerbation Septic shock Coronary artery disease, s/p CABG. Lymphocytosis Elevated troponin Hypokalemia Lactic acidosis Plan: s/p intubation on mechanical ventilator. CXR image and report reviewed. Notable for hyperinflation. Devices in place. ABG reviewed, notable for acidemia d/t CO2 retention. On AC mode; RR 22, VT 400, PEEP 5, FiO2 100% Titrate FIO2 to keep O2 saturation above 90%. VAP bundle. Daily ABG and CXR while intubated Sedate for ventilator synchrony On pressors (Levophed) for hemodynamic support Titrate to keep mean arterial pressure greater than 65 mmHg. Elevated troponin, on therapeutic Lovenox Follow up Cardiology recommendations Continue antibiotics. F/u cultures. IV fluids for lactic acidosis Monitor renal function Monitor electrolytes. Supplement as necessary. Monitor ins and outs. GI/DVT prophylaxis. Prognosis: Poor given patient's multiple co-morbidities. Condition: Critical Rest of plan per hospitalist and other consultants. A total of 35 minutes of critical care time was spent reviewing the patient record, examining the patient, making a diagnostic and therapeutic plan, disc ussing this plan with the medical personnel, following up on diagnostic studies and following the patient for clinical stability excluding any and all procedures. At least 50% of this time was spent in direct, [id number] contact. Thank you, WENDY Colunga, for allowing me to participate in this patient's care. Further recommendations will depend on the patient's clinical course. Please do not hesitate to contact me if you have any questions or concerns. This medical document was created using an electronic medical record system with [employer] computerized dictation system. Although these documentations are being carefully reviewed, there may still be some phonetic and typographical changes. The errors are purely typographical, due to imperfection on the software program, and do not reflect any compromise in the patient's medical care. Plan discussed with: Son, Other (RN/WENDY Colunga/) CANDIDA MCKEON MD May 17, 2025 22:22
--- NOTE | 2025-05-17 22:30 | DVHPN2 ---
Progress Note - Dictate Date Seen: May 17, 2025 Medical Necessity Reason Pt with a Central, PICC or Fol: Yes The following are medically ne: Walter Catheter Reason for walter catheter: Strict I&O Subjective Patient seen and examined at bedside. Sedated, intubated on mechanical ventilator. Overnight events reviewed. vital signs Vital Sign Date Time Temp Pulse Resp B/P (MAP) Pulse Ox O2 Delivery O2 Flow Rate FiO2 05/17/25 21:00 112/74 05/17/25 20:30 100.2 108 22 96 212.4 05/17/25 20:00 Mechanical Ventilator+ 40 40 05/16/25 21:09 7 Total Intake and Output 05/16/25 05/16/25 05/17/25 15:00 23:00 07:00 Intake Total 17.93 ml 427.25 ml Output Total 150 ml Balance 17.93 ml 277.25 ml medications Current Medications Medications Dose Ordered Sig/Atilio Route Start Time Stop Time Status Last Admin Dose Admin Midazolam HCl 50 ml @ 1 mls/hr Q24H IV 05/16/25 22:00 05/17/25 09:32 Fentanyl Citrate 250 ml @ 2.5 mls/hr Q24H IV 05/16/25 22:00 05/17/25 05:12 Piperacillin Sod/ Tazobactam Sod 100 ml @ 25 mls/hr Q8HR IV 05/17/25 06:00 05/17/25 13:52 Vancomycin HCl 0 ml @ 0 mls/hr UD IV 05/16/25 22:30 Enoxaparin Sodium 50 mg Q12HR SC 05/17/25 10:00 05/17/25 09:32 Famotidine 20 mg Q12HR IV 05/17/25 10:00 05/17/25 09:32 Diagnostic Test (Pha) 1 strip Q6HR 05/17/25 00:00 05/17/25 17:35 Insulin Human Regular Q6HR SC 05/17/25 00:00 05/17/25 17:34 Dextrose 50 ml UD PRN IV 05/16/25 22:30 Ondansetron HCl 4 mg Q4HP PRN IV 05/16/25 22:30 Nitroglycerin 0.4 mg Q5MINP PRN SL 05/16/25 22:30 Morphine Sulfate 2 mg Q30M PRN IV 05/16/25 22:30 Norepinephrine Bitartrate 250 ml @ 3.75 mls/hr Q24H IV 05/17/25 22:11 05/17/25 16:33 Acetaminophen 650 mg Q6HP PRN GT 05/17/25 11:45 05/17/25 18:12 Ipratropium [place] 0.5 mg Q6HR NEB 05/17/25 12:00 05/17/25 17:55 Budesonide 0.5 mg BID NEB 05/17/25 22:00 05/17/25 21:52 Albuterol 2.5 mg Q6HR NEB 05/17/25 18:00 05/17/25 17:54 Methylprednisolone Sodium Succinate 60 mg BID IV 05/17/25 12:30 05/17/25 13:50 Azithromycin 250 ml @ 125 mls/hr DAILY IV 05/17/25 15:51 05/17/25 15:59 objective Gen.: Patient lying in bed in medical ICU. Sedated, intubated on mechanical ventilator. Head: Normocephalic, atraumatic. Eyes: PERRLA. Ears: Normal external anatomy. Throat: Endotracheal tube and orogastric tube in place. Neck: Supple, trachea midline. Chest: Transmitted breath sounds bilaterally. Decreased air entry bilaterally. No wheezing. Bibasilar crackles. Cardiovascular: Positive S1, positive S2. Regular rate and rhythm. Abdomen: Positive bowel sounds in all 4 quadrants. Soft, nontender, nondistended. : Walter in place. Normal external genitalia. Rectal: Deferred. Skin: Warm, dry. Intact. Extremities: 2+ radial pulses bilaterally. No lower extremity edema. Neuro: Sedated. laboratory and microbiology Laboratory Tests 05/17/25 03:35 Test 05/17/25 03:35 Range/Units Serum Glucose 207 H 74-106 mg/dL Assessment/Plan Impression: Acute hypoxic respiratory failure Acute on chronic hypercarbic respiratory failure On mechanical ventilator Acute COPD exacerbation Septic shock Coronary artery disease, s/p CABG. Lymphocytosis Elevated troponin Hypokalemia Lactic acidosis Events: Remains on vent support On AC mode; RR 22, VT 400, PEEP 5, FiO2 40% Improved FiO2 requirements - continue to taper as tolerated ABG reviewed, compensated. CXR image and report reviewed. Notable for hyperinflation. Devices in place. On Levophed for hemodynamic support Titrate to keep mean arterial pressure greater than 65 mmHg. Follow up Cardiology recommendations Continue bronchodilators - start ipratropium q.6 hours + budesonide q.12 hours Continue antibiotics - vancomycin and Zosyn Follow up cultures Continue IV fluids Lactic acid trending up. Monitor renal function Monitor electrolytes. Supplement as necessary. Supplement potassium Labs and imaging reviewed. Rest of plan as noted below. Plan: s/p intubation on mechanical ventilator. On AC mode; RR 22, VT 400, PEEP 5, FiO2 40% Titrate FIO2 to keep O2 saturation above 90%. VAP bundle. Daily ABG and CXR while intubated Sedate for ventilator synchrony On pressors for hemodynamic support Titrate to keep mean arterial pressure greater than 65 mmHg. Elevated troponin, on therapeutic Lovenox Follow up Cardiology recommendations Continue antibiotics. F/u cultures. IV fluids for lactic acidosis Monitor renal function Monitor electrolytes. Supplement as necessary. Monitor ins and outs. GI/DVT prophylaxis. Prognosis: Poor given patient's multiple co-morbidities. Condition: Critical Rest of plan per hospitalist and other consultants. A total of 35 minutes of critical care time was spent reviewing the patient record, examining the patient, making a diagnostic and therapeutic plan, discussing this plan with the medical personnel, following up on diagnostic studies and following the patient for clinical stability excluding any and all procedures. At least 50% of this time was spent in direct, [id number] contact. Thank you, WENDY Coulnga, for allowing me to participate in this patient's care. Further recommendations will depend on the patient's clinical course. Please do not hesitate to contact me if you have any questions or concerns. This medical document was created using an electronic medical record system with [employer] dictation system. Although these documentations are being carefully reviewed, there may still be some phonetic and typographical changes. The errors are purely typographical, due to imperfection on the software program, and do not reflect any compromise in the patient's medical care. Dietary Evaluation Review Comments: 1) If patient remains NPO > 7 days, consider EN/TPN to meet at least 75% of estimated energy needs 2) If GI is preferred, consider Jevity 1.2 @ 35 mL/hr goal rate as tolerated. Flush with 200 mL free H2O Q6H. EN regimen will provide 1008 kcals, 47g Pro, 1478 mL free H2O (including flushes) per 24 hrs. Goal rate will meet ~97% estimated energy needs and 64% estimated protein needs 3) Advanced to regular diet when medically feasible, pending ST approval 4) Follow-up with pulmonology 5) Continue to monitor I&O, labs, and skin integrity Expected Outcomes/Goals: 1) labs to improve 2) patient to receive nutritional support within 7 days of NPO status 3) diet to advance 4) f/u in 2-3 days Plan discussed with: Other (DANICA Angulo) Critical Care Time(min): 35 CANDIDA MCKEON MD May 17, 2025 22:30
[2025-05-18] VITALS (89 sets, daily range): BP systolic 69–146; BP diastolic 46–95; PULSE 81–125; RESP 18–26; TEMP 98.4–100.4; O2SAT 83–100
[2025-05-18] MEDS: IBUPROFEN 800 MG TAB PO ONE (00:12)
[2025-05-18 00:16] LABS: Urine Amorphous Crystal FEW /hpf (None Seen); Urine Protein, UAD TRACE (Negative)
[2025-05-18 03:56] LABS: Hematocrit 39.5 % (36.0-46.0); Hemoglobin 13.3 g/dL (12.2-16.2); Mean Corpuscular Hemoglobin 30.6 pg (28.0-32.0); Mean Corpuscular Volume 90.4 fL (80.0-100.0)
[2025-05-18 04:13] LABS: Albumin 3.4 g/dL (3.2-4.8); Anion Gap 9 (5-15); BUN/Creatinine Ratio 33.3 (10.0-20.0); Bilirubin, Total 0.5 mg/dL (0.2-1.0); Blood Urea Nitrogen 13 mg/dL (9-23); Calcium 9.3 mg/dL (8.7-10.4); Carbon Dioxide 29 mmol/L (20-31); Chloride 105 mmol/L (98-107); Potassium 3.9 mmol/L (3.5-5.1); Sodium 143 mmol/L (136-145)
[2025-05-18 04:33] LABS: Alanine Aminotransferase 113 U/L (7-40); Alkaline Phosphatase 125 U/L (46-116); Glucose 148 mg/dL (74-106); Total Protein 5.3 g/dL (5.7-8.2)
[2025-05-18 05:17] LABS: Total Cells Counted 100.0 (100)
--- NOTE | 2025-05-18 06:36 | DVH ---
6.6 CHEST RADIOGRAPH Indication: RESPIRATORY FAILURE Technique: Single frontal view of the chest was obtained COMPARISON: XY CHEST XRAY 1 VIEW on DOS: 05/16/25, XY CHEST PORTABLE on DOS: 05/16/25, XY CHEST XRAY 1 VIEW on DOS: 09/09/24, CT CT ANGIO CHEST CONTRAST on DOS: 09/08/24, XY CHEST XRAY 1 VIEW on DOS: 08/18 10/10 FINDINGS: Lines and Tubes: Slight interval retraction of the endotracheal tube such that the tip now projects a pproximately 6.6 cm above the level of the rohan. Remaining lines and tubes unchanged. Lungs: Slight interval increase in hazy bilateral middle lung zone pulmonary opacities. No evidence o f focal consolidation. Chronic appearing bilateral interstitial pulmonary markings otherwise noted. N o definite evidence of pleural effusion. No pneumothorax. Cardiomediastinal contours: Unremarkable Bones: Unremarkable IMPRESSION: 1. Slight interval increase in hazy bilateral middle lung zone pulmonary opacities. 2. Slight interval retraction of the endotracheal tube such that the tip now projects approximately 6 .6 cm above the level of the rohan. Remaining lines and tubes unchanged.
[2025-05-18 07:22] LABS: Base Excess 2.6 mmol/L (-2.0-3.0)
--- NOTE | 2025-05-18 09:02 | DVH ---
CLINICAL HISTORY: ALOC TECHNIQUE: Helical scanning was performed of the head from the skull base to the vertex. Multiplanar reconstructions were performed. This exam was performed according to our departmental dose optimizat ion program. Up-to-date CT equipment and radiation dose reduction techniques are utilized as appropri ate. CTDI 53.0 DLP 1043.3 COMPARISON: CT HEAD WITHOUT CONTRAST on DOS: 05/17/25 FINDINGS: There is no evidence for acute intracranial hemorrhage, acute ischemic changes, mass, mass effect, or extra-axial fluid collection. There is no hydrocephalus or midline shift. There is no effacement of the cerebral sulci and basal subarachnoid cisterns. The brantley-white matter differentiation is well estee ntained. 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 There has been bilateral cataract extraction. The imaged paranasal sinuses demonstrates minimal right maxillary sinus mucosal thickening. IMPRESSION: No acute intracranial abnormality seen. Advanced chronic small vessel ischemic change.
[2025-05-18] MEDS: VANCOMYCIN 1GM/250ML KIT 250 ML IV ONE (09:08)
[2025-05-18 09:24] LABS: Magnesium 2.3 mg/dL (1.6-2.6)
[2025-05-18 09:26] LABS: Cholesterol 116.0 mg/dL (< 200); HDL Cholesterol 34.0 mg/dL (40-59); Triglycerides 198.0 mg/dL (< 150)
--- NOTE | 2025-05-18 10:34 | DVHINCON2 ---
Date Seen: May 18, 2025 Referring Physician WENDY Colunga Reason for Consultation Elevated troponin levels History of Present Illness This 64-year-old female who presented to the emergency room via EMS with a chief complaint of shortness of breath x 45 min. Information obtained from records which indicate the patient found by EMS with oxygen saturation levels in the 70s% on room air for which she was treated with a breathing treatment and subsequent oxygen support via bag-valve mask. She was subsequently endotracheally intubated for airway protection in the emergency room. Post intubation the patient became transiently bradycardic and hypotensive with CPR initiated. Per MD resident at bedside, the patient did not lose pulses or HR at any given point. Multiple 12 lead electrocardiograms x 2 revealing a sinus tachycardia rhythm up to the 140s bpm. Latest serial troponin level was found >7,000 ng/L. Follows-up with a primary wellness specialist in [place] with son at bedside stating she underwent an unremarkable transthoracic echocardiogra m on March 2025. Significant medical history includes status post bioprosthetic SAVR, chronic hypoxic respiratory failure with home O2 at 6 L/min, COPD, hyperlipidemia, myotonic muscular dystrophy, and previous tobacco use. Past Medical History Past medical history reviewed. No other significant than mentioned above. Past Surgical History Bioprosthetic Surgical aortic valve replacement (SAVR) in March 2024 Hysterectomy Family History: FH: CHF (congestive heart failure) G8 MOTHER FH: aneurysm G8 MOTHER FH: muscular dystrophy G8 FATHER Hypertension G8 MOTHER Family History Family history reviewed. Social History Per previous records, five pack year history, quit smoking in 2020. Denied the use of alcohol or illicit drugs. Allergies: Coded Allergies: NO KNOWN ALLERGIES (Unverified , 02/17/23) Home Meds Active Scripts Prednisone (Prednisone) 20 Mg Tab, 20 MG PO BID for 6 Days, #6 MG 10 mg twice a day x 3 days 10 mg once a day x 3 days Prov:YULIA WEBB ORTHODONTIC TECHNICIAN 09/05/23 Doxycycline (Monohydrate) (Doxycycline) 100 Mg Cap, 100 MG PO BID for 7 Days, #14 CAP Prov:YULIA WEBB ORTHODONTIC TECHNICIAN 09/05/23 Acetaminophen (Tylenol 8 Hour Arthritis) 650 Mg Tab, 650 MG PO TID, #30 TAB Prov:CAMILLE HERNANDEZ 6/3/23 Methocarbamol (Methocarbamol) 750 Mg Tab, 750 MG PO BID, #20 TAB Prov:CAMILLE HERNANDEZ JUNIOR 02/17/23 Reported Medications Aspirin (Aspir-Low) 81 Mg Tab, 81 MG PO DAILY for 30 Days, MG 09/05/24 Atorvastatin Calcium (ATORVASTATIN CALCIUM) 10 Mg Tab, PO 09/05/24 Home Meds Home medications reviewed. Current Medications Current Medications Medications (Trade) Dose Ordered Sig/Atilio Route PRN Reason Start Time Stop Time Status Last Admin Norepinephrine Bitartrate 250 ml @ 3.75 mls/hr Q24H IV 05/17/25 22:11 05/17/25 16:33 Acetaminophen (Tylenol Solution Oral) 650 mg Q6HP PRN GT PAIN SCALE 1-3 OR TEMP>100.4 05/17/25 11:45 05/17/25 18:12 Ipratropium [place] (Atrovent Medneb) 0.5 mg Q6HR NEB 05/17/25 12:00 05/18/25 05:48 Budesonide (Pulmicort) 0.5 mg BID NEB 05/17/25 22:00 05/18/25 05:48 Albuterol (Ventolin Medneb) 2.5 mg Q6HR NEB 05/17/25 18:00 05/18/25 05:48 Methylprednisolone Sodium Succinate (Solu Medrol) 60 mg BID IV 05/17/25 12:30 05/18/25 09:06 Ceftriaxone Sodium 50 ml @ 100 mls/hr DAILY@09 IV 05/17/25 15:51 05/17/25 18:28 DC 05/17/25 15:53 Azithromycin 250 ml @ 125 mls/hr DAILY IV 05/17/25 15:51 05/18/25 09:06 Review of Systems Constitutional: No symptom reported Ears, Nose, & Throat: No symptom reported Eyes: No symptom reported Neurological: No symptoms reported Pulmonary/Respiratory: SOB Cardiovascular: No symptom reported Gastrointestinal: No symptom reported Genitourinary: No symptom reported Musculoskeletal: No symptom reported Skin: No symptom reported Psychiatric: No symptom reported Endocrine: No symptom reported Hemotologic/Lymphatic: No symptom reported Vital Signs Vital Signs Date Time Temp Pulse Resp B/P (MAP) Pulse Ox O2 Delivery O2 Flow Rate FiO2 05/18/25 09:27 94 22 69/46 (54) 100 30 05/18/25 06:00 Mechanical Ventilator+ 05/18/25 02:15 99.5 211.1 05/16/25 21:09 7 Physical Exam General Appearance: Chemically sedated. Endotracheally intubated. Withdrawn Head Exam: Normal inspection Neck Exam: Normal inspection. Normal alignment Pulmonary/Respiratory: Coarse bilateral breath sounds. Endotracheally intubated Cardiovascular/Chest: Regular rate and rhythm. S1, S2. Sinus rhythm. No murmurs. No JVD. Peripheral Pulses: 2+ Radial (R). 2+ Radial (L). 2+ Pedal (R). 2+ Pedal (L) Abdominal Exam: Normal bowel sounds. Soft. Nontender. No hepatospenomegaly. No masses Ankle Exam: Negative ankle edema Lower extremities: Negative lower extremity edema Neuro/Mental Status: Chemically sedated. Withdrawn. +cough/gag reflex. Pinpoint reactive pupils bilaterally Thoughts/Psych: Unable to assess at this time Appearance: Withdrawn Skin Exam: Normal inspection. Normal color. Warm. Dry Labs/Diagnostic Data Labs Test 05/18/25 07:00 05/18/25 03:25 05/17/25 23:40 05/17/25 23:10 Range/Units Blood Gas Specimen Type Arterial Blood Gas Sample Site Right radial Blood Gas Patient Temperature 37.0 Arterial Blood Date Drawn [id number] Arterial Blood pH 7.383 7.350-7.450 Arterial Blood Partial Pressure CO2 49.0 H 32.0-45.0 mmHg Arterial Blood Partial Pressure O2 69.1 L 83.0-108.0 mmHg Arterial Blood HCO3 28.5 H 21.0-28.0 mmol/L Arterial Blood Oxygen Saturation 94.3 94.0-98.0 % Arterial Blood Base Excess 2.6 -2.0-3.0 mmol/L Arterial Blood Oxyhemoglobin 93.4 L 94.0-98.0 % Arterial Blood Carboxyhemoglobin 0.9 0.5-1.5 % Arterial Blood Methemoglobin 0.1 0.0-1.5 % Gurmeet Test Modified Blood Gas Total Hemoglobin 14.50 12.0-16.0 g/dL Blood Gas Set Respiration Rate 22.0 Blood Gas Modality Vent - ac FiO2 % 30.0 Blood Gas Tidal Volume 400.0 Blood Gas PEEP or CPAP 5.0 White Blood Count 25.1 #H 4.4-10.8 10^3/uL Red Blood Count 4.37 4.0-5.20 10^6/uL Hemoglobin 13.3 # 12.2-16.2 g/dL Hematocrit 39.5 # 36.0-46.0 % Mean Corpuscular Volume 90.4 80.0-100.0 fL Mean Corpuscular Hemoglobin 30.6 28.0-32.0 pg Mean Corpuscular Hemoglobin Concent 33.8 32.0-36.0 g/dL Red Cell Distribution Width 14.1 11.8-14.3 % Platelet Count 248 140-450 10^3/uL Mean Platelet Volume 7.8 6.9-10.8 fL Neutrophils (%) (Auto) 37.0-80.0 % Lymphocytes (%) (Auto) 10.0-50.0 % Monocytes (%) (Auto) 0.0-12.0 % Basophils (%) (Auto) 0.0-2.0 % Neutrophils # (Auto) 1.6-8.6 10 ^3/uL Lymphocytes # (Auto) 0.4-5.4 10 ^3/uL Monocytes # (Auto) 0-1.3 10 ^3/uL Differential Total Cells Counted 100.0 100 Neutrophils % (Manual) 86 H 37.0-80.0 Band Neutrophils % (Manual) 7 Lymphocytes % (Manual) 3 L 10.0-50.0 Monocytes % (Manual) 4 0-12 Eosinophils % (Manual) 0 0-7 Basophils % (Manual) 0 0.0-2.0 Metamyelocytes % (manual) 0 Myelocytes % (Manual) 0 Promyelocytes % (Manual) 0 Blast Cells % (Manual) 0 Reactive Lymphocytes 0 Platelet Estimate Adequate Sodium Level 143 136-145 mmol/L Potassium Level 3.9 3.5-5.1 mmol/L Chloride Level 105 98-107 mmol/L Carbon Dioxide Level 29 20-31 mmol/L Anion Gap 9 5-15 Blood Urea Nitrogen 13 9-23 mg/dL Creatinine 0.39 #L 0.550-1.02 mg/dL Glomerular Filtration Rate Calc 113 >90 mL/min BUN/Creatinine Ratio 33.3 H 10.0-20.0 Serum Glucose 148 H 74-106 mg/dL Calcium Level 9.3 8.7-10.4 mg/dL Magnesium Level 2.3 1.6-2.6 mg/dL Total Bilirubin 0.5 0.2-1.0 mg/dL Aspartate Amino Transferase (AST) 107 H 13-40 U/L Alanine Aminotransferase (ALT) 113 H 7-40 U/L Alkaline Phosphatase 125 H 46-116 U/L Troponin I High Sensitivity 7100 *H </=34 ng/L B-Type Natriuretic Peptide 809.49 0-100 pg/mL Total Protein 5.3 L 5.7-8.2 g/dL Albumin 3.4 3.2-4.8 g/dL Triglycerides Level 198 H < 150 mg/dL Cholesterol Level 116 < 200 mg/dL LDL Cholesterol 54 < 100 mg/dL HDL Cholesterol 34 L 40-59 mg/dL Random Vancomycin Level 3.8 L 5-10 ug/mL Urine Color Yellow Yellow Urine Clarity Ex.turbid Clear Urine pH 5.5 5.0-9.0 Urine Specific [place] 1.023 1.001-1.035 Urine Protein Trace H Negative Urine Ketones Trace Negative Urine Blood Trace H Negative /uL Urine Nitrite Negative Negative Urine Bilirubin Negative Negative Urine Urobilinogen Normal Negative mg/dL Urine Leukocyte Esterase Negative Negative /uL Urine RBC 20 0 - 4 /hpf Urine Microscopic WBC 6 H 0-5 /HPF Urine Squamous Epithelial Cells Few <5 /hpf Urine Uric Acid Crystals Mod None Seen /hpf Urine Amorphous Crystals Few None Seen /hpf Urine Bacteria None seen None Seen /hpf Urine Granular Casts Few 0 /lpf Urine Glucose Normal Normal mg/dL POC Glucose 146 H 70-106 mg/dl Test 05/17/25 05:11 05/17/25 03:35 05/16/25 23:15 05/16/25 22:13 Range/Units Influenza Type A Antigen Negative Negative Influenza Type B Antigen Negative Negative SARS-CoV-2 Antigen (Rapid) Negative NEGATIVE Red Blood Cell Morphology Normal Blood Gas Critical Value Read Back Yes Blood Gas Notified Whom Md. kvng zamora Blood Gas Notified Time [id number] Blood Gas Notified By Rt lindsey das Lactic Acid Level 5.3 *H 0.4-2.0 mmol/L Test 05/16/25 20:17 05/16/25 20:08 Range/Units Large Platelets Few Anisocytosis (manual) Moderate Target Cells Hemoglobin A1c 4.2 <5.7 % A1C Venous Blood pH 7.031 *L 7.320-7.430 Venous Blood pCO2 at Patient Temp 119.2 *H 38.0-54.0 mmHg Venous Blood pO2 at Patient Temp < 36.5 23.0-48.0 mmHg Venous Blood HCO3 30.9 H 22.0-29.0 mmol/L Venous Blood Base Excess -3.7 L -2.0-3.0 mmol/L Blood Gas Liter Flow 6.00 Specimen Drawn By Cpt evon Microbiology Date/Time Source Procedure Growth Status 05/17/25 01:30 Nose MRSA Screen - Final Complete 05/17/25 01:30 Urine - [place] Urine Culture - Preliminary Resulted 05/16/25 22:02 Sputum Gram Stain - Final Resulted 05/16/25 22:02 Sputum Respiratory Culture - Preliminary Resulted 05/16/25 20:09 Blood Blood Culture - Preliminary NO GROWTH AFTER 24 HOURS OF INCUBATION. Resulted Assessment Septic shock with PNA COPD exacerbation, now mechanically ventilated Acute on chronic hypoxic respiratory failure NSTEMI, likely demand ischemia secondary to above Status post surgical aortic valve replacement (bioprosthetic, 2023) Hyperlipidemia Myotonic muscular dystrophy History of tobacco use Plan/Recommendation (Dr. Hawthorne) Likely NSTEMI Type II secondary to demand ischemia from septic shock and acute hypoxic respiratory failure. Continue further cardiac evaluation with a transthoracic echocardiogram to evaluate cardiac function. Trend troponin levels for peak and fall values. Continue therapeutic Lovenox. Per previous records, the patient had a cardiac catheterization and coronary angiogram without catheter based intervention given no significant coronary artery disease on 03/2024. In the setting of an unremarkable echocardiogram, there is no further cardiac work-up indicated at this time. Continue pulmonology and neurological recommendations. Thank you for allowing us to participate in this patient's care. Please call if you have any questions or concerns. Critical care time spent: 40 minutes. This medical document was created using an electronic medical record system with voice recognition software and computerized dictation system. Although this document has been carefully reviewed, there might still be some phonetic and typographical errors. Occasional wrong-word or ``sound-alike substitutions may have occurred due to the inherent limitations of voice recognition software. These areas are purely typographical due to imperfections of the software programs and do not reflect any compromise in the patient's medical care. Please read the chart carefully and recognize, using context, where these substitutions have occurred. Plan discussed with: Son, Other (Sister) NYHA Physical activity limitations: NA Date of Service: May 18, 2025 Billing Provider: JIHAN KRUSE Cardiology Common Codes: 41331-[id number] CARE 30-74 MIN JIHAN KRUSE May 18, 2025 10:34
--- NOTE | 2025-05-18 11:32 | DVHPN2 ---
Progress Note - Dictate Date Seen: May 18, 2025 Medical Necessity Reason Pt with a Central, PICC or Fol: Yes The following are medically ne: Walter Catheter Reason for walter catheter: Strict I&O Subjective Ms. Bauman is a 64 years old right-handed female with a history of dyslipidemia, asthma, aortic stenosis, COPD, myeloproliferative disorder, myotonic muscular dystrophy, the patient was taken to the hospital with a chief complaint of shortness of breath, I have seen and examined the patient, I have talked to her son, her nurse, she is responsive to stroke painful stimuli, she has gag reflexes CBC, 05/16/2021: Respiratory acidosis, 05/17/2025: Respiratory acidosis, 05/18/25: Hypoxia, carbon dioxide retention WBC/HB/PLT/MCV, 05/16/2025: 62.5/15. 4/640/94.2, 05/17/2025: 72.6/16.1/520/91.2, 05/18/2025: 25.1/13.3/248/90.4 BUN/CR, 05/17/2025: 15/0.56 GFR, 05/17/2025: 103 Lactic acid, 05/16/25: 5.3 HGB A1c, 05/16/2025: 4.2 Troponin one high sensitivity, 05/16/2025: 1209, 2081, 4211, 05/18/2025: 7100 TBI/AST/ALT/AP, 05/17/2025: 1.8/86/25/183 TG/HDL/LDL/HDL, 05/18/2025: 198/116/54/34 CT head, 05/17/2025: 1. No acute intracranial abnormality. 2. Chronic sequelae of microvascular disease CT head, 05/18/2025: No acute intracranial abnormality seen. Advanced chronic small vessel ischemic eubanks vital signs Vital Sign Date Time Temp Pulse Resp B/P (MAP) Pulse Ox O2 Delivery O2 Flow Rate FiO2 05/18/25 10:00 22 97 Mechanical Ventilator+ 30 30 05/18/25 10:00 90 05/18/25 09:27 69/46 (54) 05/18/25 02:15 99.5 211.1 05/16/25 21:09 7 Total Intake and Output 05/17/25 05/17/25 05/18/25 15:00 23:00 07:00 Intake Total 282.50 ml 952.50 ml 382.00 ml Output Total 300 ml 300 ml Balance 282.50 ml 652.50 ml 82.00 ml medications Current Medications Medications Dose Ordered Sig/Atilio Route Start Time Stop Time Status Last Admin Dose Admin Midazolam HCl 50 ml @ 1 mls/hr Q24H IV 05/16/25 22:00 05/18/25 05:20 3 MLS/HR Fentanyl Citrate 250 ml @ 2.5 mls/hr Q24H IV 05/16/25 22:00 05/17/25 05:12 2.5 MLS/HR Piperacillin Sod/ Tazobactam Sod 100 ml @ 25 mls/hr Q8HR IV 05/17/25 06:00 05/18/25 05:11 25 MLS/HR Vancomycin HCl 0 ml @ 0 mls/hr UD IV 05/16/25 22:30 Enoxaparin Sodium 50 mg Q12HR SC 05/17/25 10:00 05/18/25 09:07 50 MG Famotidine 20 mg Q12HR IV 05/17/25 10:00 05/18/25 09:06 20 MG Diagnostic Test (Pha) 1 strip Q6HR 05/17/25 00:00 05/18/25 05:11 1 STRIP Insulin Human Regular Q6HR SC 05/17/25 00:00 05/18/25 05:15 2 UNITS Dextrose 50 ml UD PRN IV 05/16/25 22:30 Ondansetron HCl 4 mg Q4HP PRN IV 05/16/25 22:30 Nitroglycerin 0.4 mg Q5MINP PRN SL 05/16/25 22:30 Morphine Sulfate 2 mg Q30M PRN IV 05/16/25 22:30 Norepinephrine Bitartrate 250 ml @ 3.75 mls/hr Q24H IV 05/17/25 22:11 05/17/25 16:33 18.75 MLS/HR Acetaminophen 650 mg Q6HP PRN GT 05/17/25 11:45 05/17/25 18:12 650 MG Ipratropium [place] 0.5 mg Q6HR NEB 05/17/25 12:00 05/18/25 05:48 0.5 MG Budesonide 0.5 mg BID NEB 05/17/25 22:00 05/18/25 05:48 0.5 MG Albuterol 2.5 mg Q6HR NEB 05/17/25 18:00 05/18/25 05:48 2.5 MG Methylprednisolone Sodium Succinate 60 mg BID IV 05/17/25 12:30 05/18/25 09:06 60 MG Azithromycin 250 ml @ 125 mls/hr DAILY IV 05/17/25 15:51 05/18/25 09:06 125 MLS/HR objective The patient is well-nourished and well-developed with no distress. The patient is intubated MENTAL STATUS: Subjective CRANIAL NERVES: Pupils are round and nonreactive, very small, not sure if the right side is bigger. There are corneal reflexes and doll's eyes phenomenon. No signs of facial weakness. There are gagging or coughing reflexes SENSATION: Responses to pain stimuli. MOTOR: Normal tone in the upper and lower extremity. Normal muscle bulk. No fasciculations. No spontaneous movement. REFLEXES: Deep tendon reflexes are symmetrical. No pathological reflexes. CEREBELLAR/COORDINATION: Deferred GAIT/STATION: deferred. laboratory and microbiology Laboratory Tests 05/18/25 03:25 Test 05/18/25 03:25 Range/Units Serum Glucose 148 H 74-106 mg/dL Problem List Cardiopulmonary arrest Coma Metabolic encephalopathy Hypoxic encephalopathy Toxic encephalopathy Acute respiratory failure Chronic respiratory failure/COPD on home oxygen Elevated troponin one high sensitivity/heart attack Myeloproliferative disorder Assessment/Plan Monitoring Supportive treatment ICU care Follow up labs Stabilize vitals/pressor drip Respiratory support/vent management Oxygen IV antibiotics DVT prophylaxis/Lovenox GI prophylaxis/famotidine More recommendation per clinical course This medical document was created using an electronic medical record system with [employer] dictation system. Although this document has been carefully reviewed, there may still be some phonetic and typographical errors. These areas are purely typographical due to imperfections of the software programs, and do not reflect any compromise in the patient's medical care Prognosis Guarded Dietary Evaluation Review Comments: 1) If patient remains NPO > 7 days, consider EN/TPN to meet at least 75% of estimated energy needs 2) If GI is preferred, consider Jevity 1.2 @ 35 mL/hr goal rate as tolerated. Flush with 200 mL free H2O Q6H. EN regimen will provide 1008 kcals, 47g Pro, 1478 mL free H2O (including flushes) per 24 hrs. Goal rate will meet ~97% estimated energy needs and 64% estimated protein needs 3) Advanced to regular diet when medically feasible, pending ST approval 4) Follow-up with pulmonology 5) Continue to monitor I&O, labs, and skin integrity Expected Outcomes/Goals: 1) labs to improve 2) patient to receive nutritional support within 7 days of NPO status 3) diet to advance 4) f/u in 2-3 days Plan discussed with: Son, Other Critical Care Time(min): 35 FÉLIX MCDOWELL MD May 18, 2025 11:31
[2025-05-18] MEDS ORDERED: EPINEPHrine HCL 1 MG/10 ML SYRG IV ONE (13:10)
--- NOTE | 2025-05-18 14:23 | DVHPN2 ---
Subjective 64-year-old female with past medical history of UTIs, asthma, and COPD who presented to [facility] ED with complaint of shortness of breaths. Patient's condition progressively get worse with increased sudden onset of shortness of breaths, wheezing, desaturating on room air in the 70s, increased work of breathing, generalized weakness, unrelieved with breathing treatment and subsequently intubated. Patient was seen and evaluated in the ED, laboratory data shows WBC 62.5, platelets 640, sodium 140, potassium 3.9, BUN 6, creatinine 0.67, GFR 99, glucose 330, hemoglobin A1c 4.2, lactic acid 4.6, calcium 10.1, troponin 1209 trending up, BNP 67.38, blood pressure 120/80, heart rate 131 trending down to 112, temperature 98.1 F, O2 saturation 98% on ventilator. Chest x-ray revealing relatively chronic appearing interstitial prominence which may reflect interstitial disease, edema and/or atypical infection. Patient was started on IV antibiotic regimen Zosyn, please see medication orders section in the computer. On my assessment, patient is fully intubated, no diaphoresis, no diarrhea, no vomiting, no fever, no chills. Patient was admitted for further evaluation and medical management. Past Medical History Asthma, COPD, UTI'S 05/17: Patient had coded yesterday for 5 minutes least. Patient was intubated. Currently patient has acute hypoxemic respiratory failure, on history of COPD. Patient is sitting duo nebs and steroids. No feeding right now patient was just intubated less than 24 hours there is some Troponinemia. Patient's family had endorsed to RN and the patient has history of myeloproliferative disorder and muscular dystrophy. 05/18: Drips include levo at 6, Versed at 3, fentanyl 50, getting IV antibiotics. Patient is ventilated a.c.// 100/30%/5.0. Making only 600 cc over 24 hour, patient is oliguric. We will continue IV fluids 40 cc an hour and monitor. Vital signs stable. We will start feeds today through NG tube. Neurology wants to give patient more time to recover. Today we did sedation vacation patient was moving spontaneously but no purposeful following command. Tomorrow we will try sedation vacation again. No CPAP for tomorrow. Continue IV antibiotics, continue steroids,. Also note, significant improvement in leukocytosis and thrombocytosis. Urine is also clearing up, had some cloudy sediment initially. Reviewed: Care Plan Changes from previous H/P or p: No Changes General: Per HPI Eyes: No Pain, No Vision change, No Conjunctivae inflammation, No Eyelid inflammation, No Other, No Redness ENT: No Ear pain, No Ear discharge, No Nose pain, No Nose discharge, No Nose congestion, No Mouth pain, No Mouth swelling, No Throat pain, No Throat swelling, No Other Cardiovascular: No Chest Pain, No Palpitations, No Orthopnea, No Paroxysmal Noc. Dyspnea, No Edema, No Lt Headedness, No Other Respiratory: No Cough, No Dry; Shortness of breath, SOB with excertion, W heezing; No Hemoptysis, No Pleuritic Pain, No Sputum; Other (SOB at rest) Gastrointestinal: No Nausea, No Vomiting, No Abdominal Pain, No Diarrhea, No Constipation, No Melena, No Hematochezia, No Other Genitourinary: No Dysuria, No Frequency, No Incontinence, No Hematuria, No Retention, No Other Musculoskeletal: No other, No neck pain, No shoulder pain, No arm pain, No back pain, No hand pain, No leg pain, No foot pain Skin: No Rash, No Lesions, No Jaundice, No Bruising, No Other Objective Vitals Vital Signs Date Time Temp Pulse Resp B/P (MAP) Pulse Ox O2 Delivery O2 Flow Rate FiO2 05/18/25 13:56 92 22 110/73 (85) 97 30 05/18/25 12:00 Mechanical Ventilator+ 05/18/25 11:45 99.0 210.2 05/16/25 21:09 7 Intake/Output Intake and Output 05/18/25 07:00 Intake Total 1617.00 ml Output Total 600 ml Balance 1017.00 ml Intake Oral 50 ml IV Total 1567.00 ml Tube Feeding 0 ml Output Urine Total 600 ml Exam General Appearance: Other (Fully intubated) HEENT: Atraumatic, PERRLA, EOMI, Mucous membr. moist/pink Respiratory: Other (On ventilator) Cardiovascular: Regular rate, Normal S1, Normal S2, No murmurs Abdominal: Normal bowel sounds, Soft, No tenderness, No hepatospenomegaly, No masses Extremities: No clubbing, No cyanosis, No edema, Normal pulses, No tenderness/swelling Skin: No rashes, No significant lesion Neuro: Reflexes 2+, Other (Altered level of consciousness) Psych/Mental Status: Other (Unobtainable) Medications Current Medications Medications Dose Ordered Sig/Atilio Route Start Time Stop Time Status Last Admin Dose Admin Midazolam HCl 50 ml @ 1 mls/hr Q24H IV 05/16/25 22:00 05/18/25 05:20 3 MLS/HR Fentanyl Citrate 250 ml @ 2.5 mls/hr Q24H IV 05/16/25 22:00 05/17/25 05:12 2.5 MLS/HR Piperacillin Sod/ Tazobactam Sod 100 ml @ 25 mls/hr Q8HR IV 05/17/25 06:00 05/18/25 13:48 25 MLS/HR Vancomycin HCl 0 ml @ 0 mls/hr UD IV 05/16/25 22:30 Enoxaparin Sodium 50 mg Q12HR SC 05/17/25 10:00 05/18/25 09:07 50 MG Famotidine 20 mg Q12HR IV 05/17/25 10:00 05/18/25 09:06 20 MG Diagnostic Test (Pha) 1 strip Q6HR 05/17/25 00:00 05/18/25 11:25 1 STRIP Insulin Human Regular Q6HR SC 05/17/25 00:00 05/18/25 11:24 2 UNITS Dextrose 50 ml UD PRN IV 05/16/25 22:30 Ondansetron HCl 4 mg Q4HP PRN IV 05/16/25 22:30 Nitroglycerin 0.4 mg Q5MINP PRN SL 05/16/25 22:30 Morphine Sulfate 2 mg Q30M PRN IV 05/16/25 22:30 Norepinephrine Bitartrate 250 ml @ 3.75 mls/hr Q24H IV 05/17/25 22:11 05/18/25 12:53 11.25 MLS/HR Acetaminophen 650 mg Q6HP PRN GT 05/17/25 11:45 05/17/25 18:12 650 MG Ipratropium [place] 0.5 mg Q6HR NEB 05/17/25 12:00 05/18/25 11:38 0.5 MG Budesonide 0.5 mg BID NEB 05/17/25 22:00 05/18/25 05:48 0.5 MG Albuterol 2.5 mg Q6HR NEB 05/17/25 18:00 05/18/25 11:38 2.5 MG Methylprednisolone Sodium Succinate 60 mg BID IV 05/17/25 12:30 05/18/25 09:06 60 MG Azithromycin 250 ml @ 125 mls/hr DAILY IV 05/17/25 15:51 05/18/25 09:06 125 MLS/HR Vancomycin HCl 100 ml @ 100 mls/hr Q12H IV 05/18/25 21:00 Laboratory Results Laboratory Tests 05/18/25 03:25 Chemistry Test 05/18/25 03:25 Albumin 3.4 g/dL (3.2-4.8) Calcium Level 9.3 mg/dL (8.7-10.4) Magnesium Level 2.3 mg/dL (1.6-2.6) Total Protein 5.3 g/dL (5.7-8.2) L Lipid panel Test 05/18/25 03:25 Cholesterol Level 116 mg/dL (< 200) HDL Cholesterol 34 mg/dL (40-59) L Triglycerides Level 198 mg/dL (< 150) H Cardiac Markers Test 05/18/25 03:25 B-Type Natriuretic Peptide 809.49 pg/mL (0-100) LFT Test 05/18/25 03:25 Alanine Aminotransferase (ALT) 113 U/L (7-40) H Alkaline Phosphatase 125 U/L (46-116) H Aspartate Amino Transferase (AST) 107 U/L (13-40) H Total Bilirubin 0.5 mg/dL (0.2-1.0) HgA1c, TSH Test 05/18/25 03:25 Thyroid Stimulating Hormone (TSH) 0.31 uIU/mL (0.55-4.78) L Urinalysis Test 05/17/25 23:40 Urine Color Yellow (Yellow) Urine Clarity Ex.turbid (Clear) Urine pH 5.5 (5.0-9.0) Urine Specific [place] 1.023 (1.001-1.035) Urine Protein Trace (Negative) H Urine Ketones Trace (Negative) Urine Blood Trace /uL (Negative) H Urine Nitrite Negative (Negative) Urine Bilirubin Negative (Negative) Urine Urobilinogen Normal mg/dL (Negative) Urine Leukocyte Esterase Negative /uL (Negative) Urine RBC 20 /hpf (0 - 4) Urine Microscopic WBC 6 /HPF (0-5) H Urine Squamous Epithelial Cells Few /hpf (<5) Urine Uric Acid Crystals Mod /hpf (None Seen) Urine Amorphous Crystals Few /hpf (None Seen) Urine Bacteria None seen /hpf (None Seen) Urine Granular Casts Few /lpf (0) Urine Glucose Normal mg/dL (Normal) Blood Gas Results Test 05/18/25 07:00 Arterial Blood pH 7.383 (7.350-7.450) FiO2 % 30.0 Microbiology Microbiology Date/Time Source Procedure Growth Status 05/17/25 01:30 Nose MRSA Screen - Final Complete 05/17/25 01:30 Urine - [place] Urine Culture - Preliminary Resulted 05/16/25 22:02 Sputum Gram Stain - Final Resulted 05/16/25 22:02 Sputum Respiratory Culture - Preliminary Resulted 05/16/25 20:09 Blood Blood Culture - Preliminary NO GROWTH AFTER 24 HOURS OF INCUBATION. Resulted Labs and/or images reviewed: Labs reviewed by me, Image(s) reviewed by me Assessment/Plan Assessment/Plan Acute hypoxemic respiratory failure due to below, requiring mechanical ventilation Status post cardiac arrest COPD with acute exacerbation Pneumonia, Gram-negative Gram-positive likely Myeloproliferative disorder? Leukocytosis, likely myeloproliferative disorder Thrombocytosis, likely myeloproliferative disorder Generalized weakness Hyperglycemia Hyperbilirubinemia Hypokalemia, repleted ALP elevated Plan: Mechanically ventilated, palm consulted for vent management Duo nebs q.6 Azithromycin Stopped ceftriaxone Vancomycin Zosyn Lovenox DVT prophylaxis famotidine 20 q.12h GI prophylaxis Solu-Medrol 60 IV b.i.d. Levophed ICU Full code Plan discussed with: Patient, Other Date of Service: May 18, 2025 Billing Provider: CARL SIMPSON MD Common Visit Codes: [id number] INP/OBS CARE(HIGH) CARL SIMPSON MD May 18, 2025 14:23
[2025-05-18] MEDS: VANCOMYCIN 750MG KIT 100 ML IV SCH (20:41)
[2025-05-18] MEDS: SODIUM CHLORIDE 0.9% 1,000 ML IV SCH (21:49)
--- NOTE | 2025-05-18 22:44 | DVHPN2 ---
Progress Note - Dictate Date Seen: May 18, 2025 Medical Necessity Reason Pt with a Central, PICC or Fol: Yes The following are medically ne: Walter Catheter Reason for walter catheter: Strict I&O Subjective Patient seen and examined at bedside. Sedated, intubated on mechanical ventilator. Overnight events reviewed. vital signs Vital Sign Date Time Temp Pulse Resp B/P (MAP) Pulse Ox O2 Delivery O2 Flow Rate FiO2 05/18/25 21:59 111 22 119/81 (94) 99 30 05/18/25 20:00 Mechanical Ventilator+ 05/18/25 18:45 100.2 212.4 05/16/25 21:09 7 Total Intake and Output 05/17/25 05/17/25 05/18/25 15:00 23:00 07:00 Intake Total 282.50 ml 952.50 ml 382.00 ml Output Total 300 ml 300 ml Balance 282.50 ml 652.50 ml 82.00 ml medications Current Medications Medications Dose Ordered Sig/Atilio Route Start Time Stop Time Status Last Admin Dose Admin Midazolam HCl 50 ml @ 1 mls/hr Q24H IV 05/16/25 22:00 05/18/25 21:39 4 MLS/HR Fentanyl Citrate 250 ml @ 2.5 mls/hr Q24H IV 05/16/25 22:00 05/17/25 05:12 2.5 MLS/HR Piperacillin Sod/ Tazobactam Sod 100 ml @ 25 mls/hr Q8HR IV 05/17/25 06:00 05/18/25 21:39 25 MLS/HR Vancomycin HCl 0 ml @ 0 mls/hr UD IV 05/16/25 22:30 Enoxaparin Sodium 50 mg Q12HR SC 05/17/25 10:00 05/18/25 21:40 50 MG Famotidine 20 mg Q12HR IV 05/17/25 10:00 05/18/25 21:39 20 MG Diagnostic Test (Pha) 1 strip Q6HR 05/17/25 00:00 05/18/25 17:45 1 STRIP Insulin Human Regular Q6HR SC 05/17/25 00:00 05/18/25 11:24 2 UNITS Dextrose 50 ml UD PRN IV 05/16/25 22:30 Ondansetron HCl 4 mg Q4HP PRN IV 05/16/25 22:30 Nitroglycerin 0.4 mg Q5MINP PRN SL 05/16/25 22:30 Morphine Sulfate 2 mg Q30M PRN IV 05/16/25 22:30 Norepinephrine Bitartrate 250 ml @ 3.75 mls/hr Q24H IV 05/17/25 22:11 05/18/25 12:53 11.25 MLS/HR Acetaminophen 650 mg Q6HP PRN GT 05/17/25 11:45 05/17/25 18:12 650 MG Ipratropium [place] 0.5 mg Q6HR NEB 05/17/25 12:00 05/18/25 18:35 0.5 MG Budesonide 0.5 mg BID NEB 05/17/25 22:00 05/18/25 21:59 0.5 MG Albuterol 2.5 mg Q6HR NEB 05/17/25 18:00 05/18/25 18:35 2.5 MG Methylprednisolone Sodium Succinate 60 mg BID IV 05/17/25 12:30 05/18/25 21:39 60 MG Azithromycin 250 ml @ 125 mls/hr DAILY IV 05/17/25 15:51 05/18/25 09:06 125 MLS/HR Vancomycin HCl 100 ml @ 100 mls/hr Q12H IV 05/18/25 21:00 05/18/25 20:41 100 MLS/HR Enteral Nutritional Formula 1,000 ml 30ML/HR GT 05/18/25 14:30 Sodium Chloride 1,000 ml @ 40 mls/hr Q24H IV 05/18/25 21:15 05/18/25 21:49 40 MLS/HR objective Gen.: Patient lying in bed in medical ICU. Sedated, intubated on mechanical ventilator. Head: Normocephalic, atraumatic. Eyes: PERRLA. Ears: Normal external anatomy. Throat: Endotracheal tube and orogastric tube in place. Neck: Supple, trachea midline. Chest: Transmitted breath sounds bilaterally. Decreased air entry bilaterally. No wheezing. Bibasilar crackles. Cardiovascular: Positive S1, positive S2. Regular rate and rhythm. Abdomen: Positive bowel sounds in all 4 quadrants. Soft, nontender, nondistended. : Walter in place. Normal external genitalia. Rectal: Deferred. Skin: Warm, dry. Intact. Extremities: 2+ radial pulses bilaterally. No lower extremity edema. Neuro: Sedated. laboratory and microbiology Laboratory Tests 05/18/25 03:25 Test 05/18/25 03:25 Range/Units Serum Glucose 148 H 74-106 mg/dL Assessment/Plan Impression: Acute hypoxic respiratory failure Acute on chronic hypercarbic respiratory failure On mechanical ventilator Acute COPD exacerbation Septic shock Coronary artery disease, s/p CABG. Lymphocytosis Elevated troponin Hypokalemia Lactic acidosis Events: Remains on vent support On AC mode; RR 22, VT 400, PEEP 5, FiO2 30% Improved FiO2 requirements - continue to taper as tolerated ABG reviewed, compensated. Sedated on Versed, Fentanyl. Repeat CT head - follow up results. On pressors for hemodynamic support On Levophed 2 mcg/min Titrate to keep mean arterial pressure greater than 65 mmHg. Follow up Cardiology recommendations Continue bronchodilators - ipratropium q.6 hours + budesonide q.12 hours Continue antibiotics - vancomycin and Zosyn Follow up cultures Improved WBC at 25.1 K. Patient with fevers - cooling measures. Platelets trending down- monitor closely (currently 248 K) Continue IV fluids Lactic acid trending up. If no acute findings noted on CT head, plan for CPAP with PS 8, PEEP of 5. Labs and imaging reviewed. Rest of plan as noted below. Plan: s/p intubation on mechanical ventilator. On AC mode; RR 22, VT 400, PEEP 5, FiO2 30% Titrate FIO2 to keep O2 saturation above 90%. VAP bundle. Daily ABG and CXR while intubated Sedate for ventilator synchrony On pressors for hemodynamic support Titrate to keep mean arterial pressure greater than 65 mmHg. Elevated troponin, on therapeutic Lovenox Follow up Cardiology recommendations Continue antibiotics. F/u cultures. IV fluids for lactic acidosis Monitor renal function Monitor electrolytes. Supplement as necessary. Monitor ins and outs. GI/DVT prophylaxis. Prognosis: Poor given patient's multiple co-morbidities. Condition: Critical Rest of plan per hospitalist and other consultants. A total of 35 minutes of critical care time was spent reviewing the patient record, examining the patient, making a diagnostic and therapeutic plan, discussing this plan with the medical personnel, following up on diagnostic studies and following the patient for clinical stability excluding any and all procedures. At least 50% of this time was spent in direct, [id number] contact. Thank you, WENDY Colunga, for allowing me to participate in this patient's care. Further recommendations will depend on the patient's clinical course. Please do not hesitate to contact me if you have any questions or concerns. This medical document was created using an electronic medical record system with [employer] dictation system. Although these documentations are being carefully reviewed, there may still be some phonetic and typographical changes. The errors are purely typographical, due to imperfection on the software program, and do not reflect any compromise in the patient's medical care. Dietary Evaluation Review Comments: 1) If patient remains NPO > 7 days, consider EN/TPN to meet at least 75% of estimated energy needs 2) If GI is preferred, consider Jevity 1.2 @ 35 mL/hr goal rate as tolerated. Flush with 200 mL free H2O Q6H. EN regimen will provide 1008 kcals, 47g Pro, 1478 mL free H2O (including flushes) per 24 hrs. Goal rate will meet ~97% estimated energy needs and 64% estimated protein needs 3) Advanced to regular diet when medically feasible, pending ST approval 4) Follow-up with pulmonology 5) Continue to monitor I&O, labs, and skin integrity Expected Outcomes/Goals: 1) labs to improve 2) patient to receive nutritional support within 7 days of NPO status 3) diet to advance 4) f/u in 2-3 days Plan discussed with: Other (DANICA Angulo) Critical Care Time(min): 35 CANDIDA MCKEON MD May 18, 2025 22:44
[2025-05-19] VITALS (106 sets, daily range): BP systolic 82–130; BP diastolic 54–84; PULSE 77–118; RESP 13–26; TEMP 98.2–99.9; O2SAT 84–100
[2025-05-19 03:27] LABS: Hematocrit 37.2 % (36.0-46.0); Hemoglobin 12.5 g/dL (12.2-16.2); Mean Corpuscular Hemoglobin 30.5 pg (28.0-32.0); Mean Corpuscular Volume 90.9 fL (80.0-100.0)
[2025-05-19 03:52] LABS: Albumin 3.2 g/dL (3.2-4.8); Alkaline Phosphatase 98 U/L (46-116); Anion Gap 6 (5-15); BUN/Creatinine Ratio 33.3 (10.0-20.0); Bilirubin, Total 0.4 mg/dL (0.2-1.0); Blood Urea Nitrogen 16 mg/dL (9-23); Calcium 9.4 mg/dL (8.7-10.4); Carbon Dioxide 30 mmol/L (20-31); Chloride 106 mmol/L (98-107); Potassium 4.0 mmol/L (3.5-5.1); Sodium 142 mmol/L (136-145)
[2025-05-19 03:56] LABS: Alanine Aminotransferase 75 U/L (7-40); Glucose 168 mg/dL (74-106); Total Protein 5.0 g/dL (5.7-8.2)
[2025-05-19 04:45] LABS: Total Cells Counted 100.0 (100)
--- NOTE | 2025-05-19 05:56 | DVH ---
CHEST RADIOGRAPH Indication: respiratory failure Technique: Single frontal view of the chest was obtained COMPARISON: XY CHEST PORTABLE on DOS: 05/18/25, XY CHEST XRAY 1 VIEW on DOS: 05/16/25, XY CHEST PORTABLE on DOS: 05/16/25, XY CHEST XRAY 1 VIEW on DOS: 09/09/24, XY CHEST XRAY 1 VIEW on DOS: 09/06/24 FINDINGS: Lines and Tubes: Endotracheal tube, enteric catheter and right central venous catheter in satisfactor y position. Lungs: Multifocal airspace disease with more focal consolidation in the right lung base. Pleura: No effusion. No pneumothorax. Cardiomediastinal contours: Unremarkable Bones: Unremarkable IMPRESSION: Lines and tubes in satisfactory position. No significant interval change.
[2025-05-19 07:44] LABS: Base Excess 1.6 mmol/L (-2.0-3.0)
[2025-05-19] MEDS ORDERED: DEXMEDETOMIDINE HCL IN D5W 100 ML IV SCH (09:45)
--- NOTE | 2025-05-19 12:18 | DVHPN2 ---
Progress Note - Dictate Date Seen: May 19, 2025 Medical Necessity Reason Pt with a Central, PICC or Fol: Yes The following are medically ne: Walter Catheter Reason for walter catheter: Strict I&O Subjective Ms. Bauman is a 64 years old right-handed female with a history of dyslipidemia, asthma, aortic stenosis, COPD, myeloproliferative disorder, myotonic muscular dystrophy, the patient was taken to the hospital with a chief complaint of shortness of breath, I have seen and examined the patient, I have talked to her son and daughter, the case was discussed with her nurse, she is intubated, sedated, responsive to stroke painful stimuli, Blood pressure is running low Levo 8 mcg/minute, Versed 4 mg/hour, fentanyl 75 mcg/hour CBC, 05/16/2021: Respiratory acidosis, 05/17/2025: Respiratory acidosis, 05/18/25: Hypoxia, carbon dioxide retention WBC/HB/PLT/MCV, 05/16/2025: 62.5/15. 4/640/94.2, 05/17/2025: 72.6/16.1/520/91.2, 05/18/2025: 25.1/13.3/248/90.4 BUN/CR, 05/17/2025: 15/0.56 GFR, 05/17/2025: 103 Lactic acid, 05/16/25: 5.3 HGB A1c, 05/16/2025: 4.2 Troponin one high sensitivity, 05/16/2025: 1209, 2081, 4211, 05/18/2025: 7100 TBI/AST/ALT/AP, 05/17/2025: 1.8/86/25/183 TG/HDL/LDL/HDL, 05/18/2025: 198/116/54/34 CT head, 05/17/2025: 1. No acute intracranial abnormality. 2. Chronic sequelae of microvascular disease CT head, 05/18/2025: No acute intracranial abnormality seen. Advanced chronic small vessel ischemic eubanks vital signs Vital Sign Date Time Temp Pulse Resp B/P (MAP) Pulse Ox O2 Delivery O2 Flow Rate FiO2 05/19/25 11:00 87/56 05/19/25 10:45 99.3 91 22 93 210.7 05/19/25 10:00 30 05/19/25 10:00 Mechanical Ventilator+ Total Intake and Output 05/18/25 05/18/25 05/19/25 15:00 23:00 07:00 Intake Total 628.75 ml 366.75 ml 878.0 ml Output Total 450 ml 325 ml Balance 628.75 ml -83.25 ml 553.0 ml medications Current Medications Medications Dose Ordered Sig/Atilio Route Start Time Stop Time Status Last Admin Dose Admin Midazolam HCl 50 ml @ 1 mls/hr Q24H IV 05/16/25 22:00 05/19/25 05:01 4 MLS/HR Fentanyl Citrate 250 ml @ 2.5 mls/hr Q24H IV 05/16/25 22:00 05/17/25 05:12 2.5 MLS/HR Piperacillin Sod/ Tazobactam Sod 100 ml @ 25 mls/hr Q8HR IV 05/17/25 06:00 05/19/25 05:34 25 MLS/HR Vancomycin HCl 0 ml @ 0 mls/hr UD IV 05/16/25 22:30 Famotidine 20 mg Q12HR IV 05/17/25 10:00 05/19/25 09:41 20 MG Diagnostic Test (Pha) 1 strip Q6HR 05/17/25 00:00 05/19/25 11:24 1 STRIP Insulin Human Regular Q6HR SC 05/17/25 00:00 05/19/25 11:23 4 UNITS Dextrose 50 ml UD PRN IV 05/16/25 22:30 Ondansetron HCl 4 mg Q4HP PRN IV 05/16/25 22:30 Nitroglycerin 0.4 mg Q5MINP PRN SL 05/16/25 22:30 Norepinephrine Bitartrate 250 ml @ 3.75 mls/hr Q24H IV 05/17/25 22:11 05/18/25 12:53 11.25 MLS/HR Acetaminophen 650 mg Q6HP PRN GT 05/17/25 11:45 05/17/25 18:12 650 MG Ipratropium [place] 0.5 mg Q6HR NEB 05/17/25 12:00 05/19/25 06:36 0.5 MG Budesonide 0.5 mg BID NEB 05/17/25 22:00 05/19/25 06:36 0.5 MG Albuterol 2.5 mg Q6HR NEB 05/17/25 18:00 05/19/25 06:36 2.5 MG Methylprednisolone Sodium Succinate 60 mg BID IV 05/17/25 12:30 05/19/25 09:41 60 MG Azithromycin 250 ml @ 125 mls/hr DAILY IV 05/17/25 15:51 05/19/25 09:42 125 MLS/HR Vancomycin HCl 100 ml @ 100 mls/hr Q12H IV 05/18/25 21:00 05/19/25 08:44 100 MLS/HR Enteral Nutritional Formula 1,000 ml 30ML/HR GT 05/18/25 14:30 Sodium Chloride 1,000 ml @ 40 mls/hr Q24H IV 05/18/25 21:15 05/18/25 21:49 40 MLS/HR Enoxaparin Sodium 50 mg Q12HR SC 05/19/25 22:00 UNV objective The patient is well-nourished and well-developed with no distress. The patient is intubated MENTAL STATUS: Subjective CRANIAL NERVES: Pupils are round and nonreactive, very small, not sure if the right side is bigger. There are corneal reflexes and doll's eyes phenomenon. No signs of facial weakness. There are gagging or coughing reflexes SENSATION: Responses to pain stimuli. MOTOR: Normal tone in the upper and lower extremity. Normal muscle bulk. No fasciculations. No spontaneous movement. REFLEXES: Deep tendon reflexes are symmetrical. Upgoing toes in both feet. CEREBELLAR/COORDINATION: Deferred GAIT/STATION: deferred. laboratory and microbiology Laboratory Tests 05/19/25 03:10 Test 05/19/25 03:10 Range/Units Serum Glucose 168 H 74-106 mg/dL Problem List Cardiopulmonary arrest Coma Metabolic encephalopathy Hypoxic encephalopathy Toxic encephalopathy Acute respiratory failure Chronic respiratory failure/COPD on home oxygen Elevated troponin I high sensitivity/heart attack Myeloproliferative disorder Assessment/Plan Monitoring Supportive treatment ICU care Follow up labs Stabilize vitals/pressor drip Respiratory support/vent management Oxygen IV antibiotics Lovenox 50 mg subQ q.12 hours GI prophylaxis/famotidine More recommendation per clinical course This medical document was created using an electronic medical record system with [employer] dictation system. Although this document has been carefully reviewed, there may still be some phonetic and typographical errors. These areas are purely typographical due to imperfections of the software programs, and do not reflect any compromise in the patient's medical care Prognosis poor Dietary Evaluation Review Comments: 1) If patient remains NPO > 7 days, consider EN/TPN to meet at least 75% of estimated energy needs 2) If GI is preferred, consider Jevity 1.2 @ 35 mL/hr goal rate as tolerated. Flush with 200 mL free H2O Q6H. EN regimen will provide 1008 kcals, 47g Pro, 1478 mL free H2O (including flushes) per 24 hrs. Goal rate will meet ~97% estimated energy needs and 64% estimated protein needs 3) Advanced to regular diet when medically feasible, pending ST approval 4) Follow-up with pulmonology 5) Continue to monitor I&O, labs, and skin integrity Expected Outcomes/Goals: 1) labs to improve 2) patient to receive nutritional support within 7 days of NPO status 3) diet to advance 4) f/u in 2-3 days Plan discussed with: Other Critical Care Time(min): 30 FÉLIX MCDOWELL MD May 19, 2025 12:18
[2025-05-19 13:36] LABS: Free T4 (Free Thyroxine) 0.98 ng/dL (0.89-1.76)
[2025-05-19 13:42] LABS: INR 1.13 (0.9-1.15); Partial Thromboplastin Time 35.3 SEC (24.5-34.5); Prothrombin Time 11.8 sec (9.3-11.8)
--- NOTE | 2025-05-19 13:43 | DVHPN2 ---
Consult Progress Note Date Seen: May 19, 2025 Subjective Other Systems: No overnight cardiac events reported Objective vital signs Vital Sign Date Time Temp Pulse Resp B/P (MAP) Pulse Ox O2 Delivery O2 Flow Rate FiO2 05/19/25 12:32 90 22 112/73 (86) 97 30 05/19/25 10:45 99.3 210.7 05/19/25 10:00 Mechanical Ventilator+ Total Intake and Output 05/18/25 05/18/25 05/19/25 14:59 22:59 06:59 Intake Total 765.00 ml 330.75 ml 778.0 ml Output Total 450 ml 325 ml Balance 765.00 ml -119.25 ml 453.0 ml medications Current Medications Medications Dose Ordered Sig/Atilio Route Start Time Stop Time Status Last Admin Dose Admin Midazolam HCl 50 ml @ 1 mls/hr Q24H IV 05/16/25 22:00 05/19/25 05:01 4 MLS/HR Fentanyl Citrate 250 ml @ 2.5 mls/hr Q24H IV 05/16/25 22:00 05/17/25 05:12 2.5 MLS/HR Piperacillin Sod/ Tazobactam Sod 100 ml @ 25 mls/hr Q8HR IV 05/17/25 06:00 05/19/25 05:34 25 MLS/HR Vancomycin HCl 0 ml @ 0 mls/hr UD IV 05/16/25 22:30 Famotidine 20 mg Q12HR IV 05/17/25 10:00 05/19/25 09:41 20 MG Diagnostic Test (Pha) 1 strip Q6HR 05/17/25 00:00 05/19/25 11:24 1 STRIP Insulin Human Regular Q6HR SC 05/17/25 00:00 05/19/25 11:23 4 UNITS Dextrose 50 ml UD PRN IV 05/16/25 22:30 Ondansetron HCl 4 mg Q4HP PRN IV 05/16/25 22:30 Nitroglycerin 0.4 mg Q5MINP PRN SL 05/16/25 22:30 Norepinephrine Bitartrate 250 ml @ 3.75 mls/hr Q24H IV 05/17/25 22:11 05/18/25 12:53 11.25 MLS/HR Acetaminophen 650 mg Q6HP PRN GT 05/17/25 11:45 05/17/25 18:12 650 MG Ipratropium [place] 0.5 mg Q6HR NEB 05/17/25 12:00 05/19/25 12:32 0.5 MG Budesonide 0.5 mg BID NEB 05/17/25 22:00 05/19/25 06:36 0.5 MG Albuterol 2.5 mg Q6HR NEB 05/17/25 18:00 05/19/25 12:32 2.5 MG Methylprednisolone Sodium Succinate 60 mg BID IV 05/17/25 12:30 05/19/25 09:41 60 MG Azithromycin 250 ml @ 125 mls/hr DAILY IV 05/17/25 15:51 05/19/25 09:42 125 MLS/HR Vancomycin HCl 100 ml @ 100 mls/hr Q12H IV 05/18/25 21:00 05/19/25 08:44 100 MLS/HR Enteral Nutritional Formula 1,000 ml 30ML/HR GT 05/18/25 14:30 Sodium Chloride 1,000 ml @ 40 mls/hr Q24H IV 05/18/25 21:15 05/18/25 21:49 40 MLS/HR Enoxaparin Sodium 50 mg Q12HR SC 05/19/25 22:00 Examination: GENERAL:Abnormal, LUNGS:Abnormal (Endotracheally intubated 30% FiO2), CVS:Abnormal (NSR. On single vasopressor), NEURO:Abnormal (Chemically sedated. +cough/gag. Reactive pupils to light) laboratory and microbiology Laboratory Tests 05/19/25 03:10 Test 05/19/25 03:10 Range/Units Serum Glucose 168 H 74-106 mg/dL Problem List/Assessment/Plan Problem List/Assessment/Plan Septic shock with PNA COPD exacerbation, now mechanically ventilated Acute on chronic hypoxic respiratory failure NSTEMI, questionable type I Status post surgical aortic valve replacement (bioprosthetic, 2023) Hyperlipidemia Myotonic muscular dystrophy History of tobacco use Plan/Recommendation (Dr. Hawthorne) Transthoracic echocardiogram completed revealed there is anterior apical hypokinesis, anterior septal hypokinesis, global hypokinesis and LVEF is approximately 20-25% with normal right ventricular function. Given latest findings on TTE, recommendations are for a cardiac catheterization with coronary angiogram to rule out coronary artery disease. Next of kin, son Jarad and daughter Josue, agreed to proceed with cardiac intervention understanding all risks and benefits. All questions answered. In the meantime, initiate single- antiplatelet therapy and lipid-lowering agent (monitor LFTs closely). Continue therapeutic Lovenox, hold day of procedure. Initiate full GDMT for HFrEF when appropriate. Continue pulmonology and neurological recommendations. Thank you for allowing us to participate in this patient's care. Please call if you have any questions or concerns. Critical care time spent: 30 minutes. This medical document was created using an electronic medical record system with voice recognition software and computerized dictation system. Although this document has been carefully reviewed, there might still be some phonetic and typographical errors. Occasional wrong-word or ``sound-alike substitutions may have occurred due to the inherent limitations of voice recognition software. These areas are purely typographical due to imperfections of the software programs and do not reflect any compromise in the patient's medical care. Please read the chart carefully and recognize, using context, where these substitutions have occurred. Plan discussed with: Other Dietary Evaluation Review Comments: 1) If patient remains NPO > 7 days, consider EN/TPN to meet at least 75% of estimated energy needs 2) If GI is preferred, consider Jevity 1.2 @ 35 mL/hr goal rate as tolerated. Flush with 200 mL free H2O Q6H. EN regimen will provide 1008 kcals, 47g Pro, 1478 mL free H2O (including flushes) per 24 hrs. Goal rate will meet ~97% estimated energy needs and 64% estimated protein needs 3) Advanced to regular diet when medically feasible, pending ST approval 4) Follow-up with pulmonology 5) Continue to monitor I&O, labs, and skin integrity Expected Outcomes/Goals: 1) labs to improve 2) patient to receive nutritional support within 7 days of NPO status 3) diet to advance 4) f/u in 2-3 days Date of Service: May 19, 2025 Billing Provider: JIHAN KRUSE Cardiology Common Codes: 27746-[id number] CARE 30-74 MIN JIHAN KRUSE May 19, 2025 13:43
[2025-05-19] MEDS: ERTAPENEM SOD INJ 1 GM in SODIUM CHL 0.9% 50 ML IV ONE (15:40)
--- NOTE | 2025-05-19 18:24 | DVHPNRES ---
Progress Note Date Seen: May 19, 2025 Resident Creating Document: GILLIAN MUSA RESIDENT Medical Necessity Reason Pt with a Central, PICC or Fol: Yes The following are medically ne: Central Line, Walter Catheter Reason for walter catheter: Strict I&O Subjective Review of Systems This is a 64-year-old female with COPD on 3 L home oxygen, surgical aortic valve replacement 03/2024, myotonic muscle dystrophy, former nicotine dependence, hyperlipidemia, unspecified myeloproliferative disorder who presented to the ER on 05/16 for the evaluation of shortness of breaths. Per son at the bedside, patient recently lost her dog and was very emotional under stress, she started experiencing shortness of breaths for the past day, associated with wheezing, on arrival to the ER patient was saturating 70% on room air, Solu-Medrol, magnesium was given to the patient, venous pCO2 was 119, WBC count 62, she had increased workup breathing and therefore patient was intubated 05/16 at around 11:00 p.m., blood pressure was 70/22 following intubation patient underwent cardiac arrest, CPR was resumed for 10 minutes-2 epis and 2 bicarb pushes were given to the patient. No defibrillation. Following that patient has been on vanc/Zosyn/azithromycin/Solu-Medrol 60 IV b.i.d./Versed/fentanyl/Levophed. Blood cultures preliminary negative, respiratory culture showing phlegm Lantus yeast, Gram-positive cocci, urine culture growing 1 lac Gram-negative rods, CT head was negative, troponin 1200 increasing to 7100, decreasing to 4500. BNP on arrival 809, lactic acidosis. Past medical/surgical history COPD on 3 L home oxygen, surgical aortic valve replacement 03/2024, myotonic muscle dystrophy, former nicotine dependence, hyperlipidemia, unspecified myeloproliferative disorder, hysterectomy, Home medication: Aspirin, prednisolone, atorvastatin , Trelegy inhaler Embryology Teacher Dr. 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 Payton Patient seen and examined in , sedation vacation was completed this morning, patient responded to commands by opening her eyes overnight 100.2 F low-grade fever, blood pressure 87 systolic to 121 systolic, 30% FiO2, urine output 700, prelim EF 20%, cardiology recommends left heart catheterization tomorrow. Objective vital signs Vital Sign Date Time Temp Pulse Resp B/P (MAP) Pulse Ox O2 Delivery O2 Flow Rate FiO2 9/2/25 18:00 99.3 80 13 112/70 (84) 95 210.7 05/19/25 18:00 30 05/19/25 18:00 Mechanical Ventilator+ Total Intake and Output 05/18/25 05/18/25 05/19/25 15:00 23:00 07:00 Intake Total 628.75 ml 366.75 ml 878.0 ml Output Total 450 ml 325 ml Balance 628.75 ml -83.25 ml 553.0 ml medications Current Medications Medications Dose Ordered Sig/Atilio Route Start Time Stop Time Status Last Admin Dose Admin Midazolam HCl 50 ml @ 1 mls/hr Q24H IV 05/16/25 22:00 05/19/25 05:01 4 MLS/HR Fentanyl Citrate 250 ml @ 2.5 mls/hr Q24H IV 05/16/25 22:00 05/19/25 13:42 12.5 MLS/HR Vancomycin HCl 0 ml @ 0 mls/hr UD IV 05/16/25 22:30 Famotidine 20 mg Q12HR IV 05/17/25 10:00 05/19/25 09:41 20 MG Diagnostic Test (Pha) 1 strip Q6HR 05/17/25 00:00 05/19/25 17:20 1 STRIP Insulin Human Regular Q6HR SC 05/17/25 00:00 05/19/25 17:20 3 UNITS Dextrose 50 ml UD PRN IV 05/16/25 22:30 Ondansetron HCl 4 mg Q4HP PRN IV 05/16/25 22:30 Nitroglycerin 0.4 mg Q5MINP PRN SL 05/16/25 22:30 Norepinephrine Bitartrate 250 ml @ 3.75 mls/hr Q24H IV 05/17/25 22:11 05/18/25 12:53 11.25 MLS/HR Acetaminophen 650 mg Q6HP PRN GT 05/17/25 11:45 05/17/25 18:12 650 MG Ipratropium [place] 0.5 mg Q6HR NEB 05/17/25 12:00 05/19/25 12:32 0.5 MG Budesonide 0.5 mg BID NEB 05/17/25 22:00 05/19/25 06:36 0.5 MG Albuterol 2.5 mg Q6HR NEB 05/17/25 18:00 05/19/25 12:32 2.5 MG Methylprednisolone Sodium Succinate 60 mg BID IV 05/17/25 12:30 05/19/25 09:41 60 MG Azithromycin 250 ml @ 125 mls/hr DAILY IV 05/17/25 15:51 05/19/25 09:42 125 MLS/HR Vancomycin HCl 100 ml @ 100 mls/hr Q12H IV 05/18/25 21:00 05/19/25 08:44 100 MLS/HR Enteral Nutritional Formula 1,000 ml 30ML/HR GT 05/18/25 14:30 Enoxaparin Sodium 50 mg Q12HR SC 05/19/25 22:00 Aspirin 81 mg DAILY PO 05/20/25 10:00 Atorvastatin Calcium 40 mg HS PO 05/19/25 22:00 Ertapenem 1 gm/ Sodium Chloride 50 ml @ 100 mls/hr DAILY@1200 IV 05/20/25 12:00 Examination Female patient lying in the bed comfortably, intubated and mechanically ventilated, no acute distress General: Low-grade fever, RASS -4, palor, mucosae are moist Cardiovascular: Tachycardia but Regular S1 and S2. No murmurs, gallops or rubs. No JVD elevation. Trace Pitting pedal edema Respiratory: Decreased breath sounds in the lower lobes, no wheezing heard Abdomen: Soft, nontender, nondistended, normoactive bowel sounds, no rebound tenderness, no organomegaly, no masses Genitourinary: Deferred MSK/skin: Skin is dry and warm Neurological: Pupils are isocoric and reactive. laboratory and microbiology Laboratory Tests 05/19/25 03:10 Test 05/19/25 03:10 Range/Units Serum Glucose 168 H 74-106 mg/dL Microbiology Date/Time Source Procedure Growth Status 05/17/25 01:30 Nose MRSA Screen - Final Complete 05/17/25 01:30 Urine - Walter [place] Urine Culture - Final Klebsiella pneumoniae - ESBL Complete 05/16/25 22:02 Sputum Gram Stain - Final Resulted 05/16/25 22:02 Sputum Respiratory Culture - Preliminary Resulted 05/16/25 20:09 Blood Blood Culture - Preliminary NO GROWTH AFTER 48 HOURS OF INCUBATION. Resulted Labs and/or images reviewed: Labs reviewed by me, Image(s) reviewed by me Problem List/Assessment/Plan Problem List/Assessment/Plan NEURO: Chronic vessel ischemic disease Duchenne myotonic dystrophy CT head shows chronic vessel ischemic disease. No acute intracranial abnormality. CARDIOVASCULAR: Status post cardiac arrest Hypotension requiring pressor support NSTEMI likely type 1 Septic Shock secondary to pneumonia Likely heart failure with reduced ejection fraction Rule out ischemic cardiomyopathy Dyslipidemia Status post surgical aortic valve replacement 2023 Cardiology: Given latest findings on TTE, recommendations are for a cardiac catheterization with coronary angiogram to rule out coronary artery disease. Next of kin, son Jarad and daughter Josue, agreed to proceed with cardiac intervention understanding all risks and benefits. All questions answered. In the meantime, initiate single-antiplatelet therapy and lipid-lowering agent (monitor LFTs closely). Echocardiogram pending Aspirin 81 mg daily, atorvastatin 40 mg p.o. HS daily Lovenox 1 mg/kg b.i.d. PULMONARY: Acute on chronic hypoxic respiratory failure status post intubation 05/16 Acute COPD exacerbation Chronic oxygen dependence Possible gram positive/Gram-negative pneumonia Former nicotine dependence Continue IV vancomycin, IV ertapenem, Solu-Medrol 60 b.i.d. Ipratropium, albuterol, budesonide nebulized treatments Zosyn switched to IV ertapenem 05/19 GASTROINTESTINAL: Transaminitis Ultrasound pending GENITOURINARY: Complicated Klebsiella ESBL cystitis History of ESBL UTI IV ertapenem HEMATOLOGY: Unspecified myeloproliferative disorder Leukocytosis Thrombocytosis CBC daily METABOLIC: ? Euthyroid sick syndrome Monitor INFECTIOUS DISEASE: Septic shock likely due to pneumonia ESBL UTI Zosyn switched to IV ertapenem 05/19 DIET: Tube feedings DVT prophylax: 1 mg/kg twice daily GI prophylaxis: Famotidine 20 twice daily Bowel regimen: Lactulose daily Code status: Full code LINES/DRAINS/ACCESS: IV access: Right IJ CVC 05/17 Drips: Versed fentanyl Levophed Walter catheter: 05/16 DISPOSITION: ICU Patient's status discussed with patient's son and daughter at bedside Critical care time spent more than 81 minutes, including patient care, chart review, and updating the family. Excluding any procedures Case discussed with Dr. Kern Plan discussed with: Daughter, Son My Orders My Orders Orders - GILLIAN MUSA RESIDENT Procedure Category Date Status Time Enoxaparin Sodium PHA 05/19/25 In Process (Lovenox) 22:00 Respiratory Misc. RT 05/19/25 Transmitted Order 12:24 Dietary Evaluation Review Comments: 1) If patient remains NPO > 7 days, consider EN/TPN to meet at least 75% of estimated energy needs 2) If GI is preferred, consider Jevity 1.2 @ 35 mL/hr goal rate as tolerated. Flush with 200 mL free H2O Q6H. EN regimen will provide 1008 kcals, 47g Pro, 1478 mL free H2O (including flushes) per 24 hrs. Goal rate will meet ~97% estimated energy needs and 64% estimated protein needs 3) Advanced to regular diet when medically feasible, pending ST approval 4) Follow-up with pulmonology 5) Continue to monitor I&O, labs, and skin integrity Expected Outcomes/Goals: 1) labs to improve 2) patient to receive nutritional support within 7 days of NPO status 3) diet to advance 4) f/u in 2-3 days Date of Service: May 19, 2025 Billing Provider: FAREED KERN MD Common Visit Codes: [id number] CARE 30-74 MIN, [id number] CARE-EACH +30MIN GILLIAN MUSA RESIDENT May 19, 2025 18:24 FAREED KERN MD May 20, 2025 15:20
[2025-05-19] MEDS: ATORVASTATIN 20 MG TAB PO SCH (21:58)
[2025-05-19] MEDS: ENOXAPARIN SOD 60 MG/0.6 ML SYRINGE SC SCH (22:00)
[2025-05-20] VITALS (104 sets, daily range): BP systolic 87–164; BP diastolic 52–99; PULSE 66–135; RESP 17–28; TEMP 72.9–99.5; O2SAT 89–100
[2025-05-20 03:45] LABS: Hematocrit 37.3 % (36.0-46.0); Hemoglobin 12.7 g/dL (12.2-16.2); Mean Corpuscular Hemoglobin 30.7 pg (28.0-32.0); Mean Corpuscular Volume 90.1 fL (80.0-100.0)
[2025-05-20 03:46] LABS: INR 1.14 (0.9-1.15); Partial Thromboplastin Time 30.6 SEC (24.5-34.5); Prothrombin Time 11.9 sec (9.3-11.8)
[2025-05-20 04:04] LABS: Albumin 3.4 g/dL (3.2-4.8); Alkaline Phosphatase 95 U/L (46-116); Anion Gap 6 (5-15); BUN/Creatinine Ratio 33.3 (10.0-20.0); Blood Urea Nitrogen 16 mg/dL (9-23); Calcium 9.7 mg/dL (8.7-10.4); Carbon Dioxide 30 mmol/L (20-31); Chloride 107 mmol/L (98-107); Magnesium 2.1 mg/dL (1.6-2.6); Potassium 4.1 mmol/L (3.5-5.1); Sodium 143 mmol/L (136-145)
[2025-05-20 04:05] LABS: Bilirubin, Total 0.5 mg/dL (0.2-1.0)
[2025-05-20 04:13] LABS: Alanine Aminotransferase 57 U/L (7-40); Glucose 160 mg/dL (74-106); Total Protein 5.2 g/dL (5.7-8.2)
[2025-05-20 04:45] LABS: Total Cells Counted 100.0 (100)
--- NOTE | 2025-05-20 05:43 | DVH ---
CHEST RADIOGRAPH Indication: f/u Technique: Single frontal view of the chest was obtained COMPARISON: XY CHEST PORTABLE on DOS: 05/19/25, XY CHEST PORTABLE on DOS: 05/18/25, XY CHEST XRAY 1 VIEW on DOS: 05/16/25, XY CHEST PORTABLE on DOS: 05/16/25, XY CHEST XRAY 1 VIEW on DOS: 09/09/24, XY CHEST P ORTABLE on DOS: 05/19/25 FINDINGS: Lines and Tubes: Endotracheal tube, enteric catheter and right central venous catheter in satisfactor y position. Lungs: Multifocal airspace disease with more focal consolidation in the right lung base. Pleura: No effusion. No pneumothorax. Cardiomediastinal contours: Unremarkable Bones: Unremarkable IMPRESSION: Lines and tubes in satisfactory position. No significant interval change.
[2025-05-20 08:11] LABS: Base Excess 2.6 mmol/L (-2.0-3.0)
[2025-05-20] MEDS ORDERED: ENOXAPARIN SOD 40 MG/0.4 ML SYRINGE SC SCH (10:00)
[2025-05-20] MEDS: ERTAPENEM SOD INJ 1 GM in SODIUM CHL 0.9% 50 ML IV SCH (12:12)
--- NOTE | 2025-05-20 14:12 | ECG ---
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
--- NOTE | 2025-05-20 14:13 | ECG ---
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
[2025-05-20] MEDS: IODIXANOL 320MG/ML 100ML BTL IV ONE (16:50)
[2025-05-20] MEDS: LIDOCAINE 2%HCL (LOCAL ANESTH.) INJ 20ML MDV ONE (17:11)
[2025-05-20] MEDS: HEPARIN SODIUM (PORCINE) 5000 UNITS/ML 1ML VIAL ONE (17:39)
[2025-05-20] MEDS: SODIUM CHL 0.9% 0 ML ONE (17:39)
[2025-05-20] MEDS: ANGIOMAX 250 MG VIAL IV ONE (17:40)
--- NOTE | 2025-05-20 18:33 | DVH ---
CLINICAL HISTORY: transamnitis TECHNIQUE: Transabdominal sonogram was performed of the right upper quadrant. COMPARISON: None FINDINGS: The liver is heterogeneous in echogenicity. There is no focal parenchymal abnormality. No intrahepa tic biliary ductal dilatation is present. The liver measures 10.9 cm. The gallbladder is normal with no evidence for stones or wall thickening. The common bile duct is mildly dilated, measuring 7.5 mm. The partially visualized pancreas is grossly unremarkable. The right kidney is normal in echogenicity and measures 11.5 cm in length. There is no evidence for h ydronephrosis or calculi. impression: Mildly dilated 7.5 mm common duct. Please correlate with laboratory values and consider MRCP if warra nted.
--- NOTE | 2025-05-20 18:56 | DVHOP2 ---
Operative Report - 2 Report Details Date: 05/20/25 Preop Diagnosis: CAD. Postop Diagnosis: Cardiomyopathy Surgeon: Jude Hawthorne MD Anesthesiologist: Conscious sedation Anesthesia: Mac, Local Consent: The patient was informed of the risks and benefits of the procedure. These include but are not limited to complications of anesthesia, postoperative infection, incomplete relief of symptoms, recurrence of symptoms, damage to blood vessels, nerves and tendons, deep venous thrombosis, pulmonary embolism and possible need for repeat surgery in the future. Complications: No complications Findings: Normal coronaries. Cardiomyopathy. Indications for Surgery: Cardiomyopathy. Elevated troponins. Name of Procedure Performed Left heart catheterization. Bilateral cine coronary angiography. Left ventriculography. Procedure Details Procedure Details: Prior local anesthesia with 2% lidocaine to the right groin and full informed consent obtained the patient was prepped and draped in usual fashion followed by placement of a six Serbian sheath into the femoral artery. Alvina catheters and a pigtail catheter was used for cannulation of both right and left coronary ostia and ventriculography. No complications. Hemodynamics: Aortic blood pressure was 117 over 70. End-diastolic pressure was 10. There was a 13 mm gradient across the aortic valve on pullback consistent with mild aortic sclerosis given a prosthetic aortic valve. Coronary anatomy: the RCA is a large vessel it is normal in its proximal mid and distal segments PDA and posterolateral branches are normal. Left main is large and normal. Left anterior descending is large and normal with two diagonals free of significant disease. The circumflex is a large vessel it is given off two marginal branches free of significant disease. Ventriculography in the SINGH projection shows an EF of about 25-30%. There is anterior apical and inferior apical hypokinesis and anterior and inferior mid and basal akinesis. This is an unusual presentation with we will be considered the reverse characteristics of a takotsubo syndrome. Impression: Normal left ventricular end-diastolic pressure at rest with markedly decreased left ventricular ejection fraction. Normal end-diastolic pressures. Small gradient across the aortic valve consistent with aortic sclerosis and with the prosthetic aortic valve. Recommendations: Continue medical therapy risk factor modifications to continue. Afterload reduction therapy and [id number] degree avoiding hypotensive events. Condition Good Disposition Still a Patient Date of Service: May 20, 2025 Billing Provider: JUDE HAWTHORNE Sr., MD Cardiology Common Codes: 17534-[id number] INP/OBS CARE (High) Cardiology Procedure Codes: 43173-[id number] HEART CATH W/INTRA INJ JUDE HAWTHORNE Sr., MD May 20, 2025 18:56
--- NOTE | 2025-05-20 19:03 | DVHPNRES ---
Progress Note Date Seen: May 20, 2025 Resident Creating Document: GILLIAN MUSA RESIDENT Medical Necessity Reason Pt with a Central, PICC or Fol: Yes The following are medically ne: Central Line, Walter Catheter Reason for walter catheter: Strict I&O Subjective Review of Systems This is a 64-year-old female with COPD on 3 L home oxygen, surgical aortic valve replacement 03/2024, myotonic muscle dystrophy, former nicotine dependence, hyperlipidemia, unspecified myeloproliferative disorder who presented to the ER on 05/16 for the evaluation of shortness of breaths. Per son at the bedside, patient recently lost her dog and was very emotional under stress, she started experiencing shortness of breaths for the past day, associated with wheezing, on arrival to the ER patient was saturating 70% on room air, Solu-Medrol, magnesium was given to the patient, venous pCO2 was 119, WBC count 62, she had increased workup breathing and therefore patient was intubated 05/16 at around 11:00 p.m., blood pressure was 70/22 following intubation patient underwent cardiac arrest, CPR was resumed for 10 minutes-2 epis and 2 bicarb pushes were given to the patient. No defibrillation. Following that patient has been on vanc/Zosyn/azithromycin/Solu-Medrol 60 IV b.i.d./Versed/fentanyl/Levophed. Blood cultures preliminary negative, respiratory culture showing phlegm Lantus yeast, Gram-positive cocci, urine culture growing 1 lac Gram-negative rods, CT head was negative, troponin 1200 increasing to 7100, decreasing to 4500. BNP on arrival 809, lactic acidosis. Past medical/surgical history COPD on 3 L home oxygen, surgical aortic valve replacement 03/2024, myotonic muscle dystrophy, former nicotine dependence, hyperlipidemia, unspecified myeloproliferative disorder, hysterectomy, Home medication: Aspirin, prednisolone, atorvastatin , Trelegy inhaler Social history: Quit smoking 6 years back, uses a cane to ambulate. Head Chopper Dr. 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 Payton 05/19, Patient seen and examined in 112, sedation vacation was completed this morning, patient responded to commands by opening her eyes overnight 100.2 F low-grade fever, blood pressure 87 systolic to 121 systolic, 30% FiO2, urine output 700, prelim EF 20%, cardiology recommends left heart catheterization tomorrow. 05/20-patient seen and examined, chest x-ray shows right lower lobe opacity mixed respiratory acidosis with metabolic alkalosis, left heart catheterization today. WBC increased to twenty-seven, liver ultrasound shows Mildly dilated 7.5 mm common duct. Please correlate with laboratory values and consider MRCP if warranted. LFTs unremarkable. One set of blood culture positive for gram- positive cocci in clusters, patient on vanc. Repeat culture ordered Objective vital signs Vital Sign Date Time Temp Pulse Resp B/P (MAP) Pulse Ox O2 Delivery O2 Flow Rate FiO2 05/20/25 18:45 99.1 70 22 103/62 (76) 99 210.4 05/20/25 18:00 Mechanical Ventilator+ 60 60 Total Intake and Output 05/19/25 05/19/25 05/20/25 15:00 23:00 07:00 Intake Total 615.75 ml 620.0 ml 506.25 ml Output Total 375 ml 350 ml Balance 615.75 ml 245.0 ml 156.25 ml medications Current Medications Medications Dose Ordered Sig/Atilio Route Start Time Stop Time Status Last Admin Dose Admin Midazolam HCl 50 ml @ 1 mls/hr Q24H IV 05/16/25 22:00 05/20/25 11:39 4 MLS/HR Fentanyl Citrate 250 ml @ 2.5 mls/hr Q24H IV 05/16/25 22:00 05/20/25 07:32 15 MLS/HR Vancomycin HCl 0 ml @ 0 mls/hr UD IV 05/16/25 22:30 Famotidine 20 mg Q12HR IV 05/17/25 10:00 05/20/25 09:12 20 MG Diagnostic Test (Pha) 1 strip Q6HR 05/17/25 00:00 05/20/25 18:00 1 STRIP Insulin Human Regular Q6HR SC 05/17/25 00:00 05/20/25 18:28 2 UNITS Dextrose 50 ml UD PRN IV 05/16/25 22:30 Ondansetron HCl 4 mg Q4HP PRN IV 05/16/25 22:30 Nitroglycerin 0.4 mg Q5MINP PRN SL 05/16/25 22:30 Norepinephrine Bitartrate 250 ml @ 3.75 mls/hr Q24H IV 05/17/25 22:11 05/20/25 16:36 15 MLS/HR Acetaminophen 650 mg Q6HP PRN GT 05/17/25 11:45 05/17/25 18:12 650 MG Ipratropium [place] 0.5 mg Q6HR NEB 05/17/25 12:00 05/20/25 18:17 0.5 MG Budesonide 0.5 mg BID NEB 05/17/25 22:00 05/20/25 06:49 0.5 MG Albuterol 2.5 mg Q6HR NEB 05/17/25 18:00 05/20/25 18:17 2.5 MG Methylprednisolone Sodium Succinate 60 mg BID IV 05/17/25 12:30 05/20/25 09:12 60 MG Vancomycin HCl 100 ml @ 100 mls/hr Q12H IV 05/18/25 21:00 05/20/25 09:13 100 MLS/HR Enteral Nutritional Formula 1,000 ml 30ML/HR GT 05/18/25 14:30 Enoxaparin Sodium 50 mg Q12HR SC 05/19/25 22:00 Aspirin 81 mg DAILY PO 05/20/25 10:00 Atorvastatin Calcium 40 mg HS PO 05/19/25 22:00 05/19/25 21:58 40 MG Ertapenem 1 gm/ Sodium Chloride 50 ml @ 100 mls/hr DAILY@1200 IV 05/20/25 12:00 05/20/25 12:12 100 MLS/HR Examination Female patient lying in the bed comfortably, intubated and mechanically ventilated, no acute distress General: Low-grade fever, RASS -4, palor, mucosae are moist Cardiovascular: Tachycardia but Regular S1 and S2. No murmurs, gallops or rubs. No JVD elevation. Trace Pitting pedal edema Respiratory: Decreased breath sounds in the lower lobes, no wheezing heard Abdomen: Soft, nontender, nondistended, normoactive bowel sounds, no rebound tenderness, no organomegaly, no masses Genitourinary: Deferred MSK/skin: Skin is dry and warm Neurological: Pupils are isocoric and reactive. laboratory and microbiology Laboratory Tests 05/20/25 03:10 Test 05/20/25 03:10 Range/Units Serum Glucose 160 H 74-106 mg/dL Microbiology Date/Time Source Procedure Growth Status 05/17/25 01:30 Nose MRSA Screen - Final Complete 05/17/25 01:30 Urine - [place] Urine Culture - Final Klebsiella pneumoniae - ESBL Complete 05/16/25 22:02 Sputum Gram Stain - Final Resulted 05/16/25 22:02 Sputum Respiratory Culture - Preliminary Resulted 05/16/25 20:09 Blood Blood Culture - Preliminary NO GROWTH AFTER 72 HOURS OF INCUBATION. Resulted Labs and/or images reviewed: Labs reviewed by me, Image(s) reviewed by me Problem List/Assessment/Plan Problem List/Assessment/Plan NEURO: Chronic vessel ischemic disease Duchenne myotonic dystrophy CT head shows chronic vessel ischemic disease. No acute intracranial abnormality. CARDIOVASCULAR: Status post cardiac arrest Hypotension requiring pressor support NSTEMI likely type 1 Septic Shock secondary to pneumonia Likely heart failure with reduced ejection fraction Rule out ischemic cardiomyopathy Dyslipidemia Status post surgical aortic valve replacement 2023 Cardiology: Status post left heart catheterization, continue aspirin and atorvastatin Echocardiogram pending Aspirin 81 mg daily, atorvastatin 40 mg p.o. HS daily Lovenox 1 mg/kg b.i.d. PULMONARY: Acute on chronic hypoxic respiratory failure status post intubation 05/16 Acute COPD exacerbation Chronic oxygen dependence Possible gram positive/Gram-negative pneumonia Former nicotine dependence Continue IV vancomycin, IV ertapenem, Solu-Medrol 60 b.i.d. Ipratropium, albuterol, budesonide nebulized treatments Zosyn switched to IV ertapenem 05/[address] chest if right lower opacity does not resolve GASTROINTESTINAL: Transaminitis Ultrasound pending GENITOURINARY: Complicated Klebsiella ESBL cystitis History of ESBL UTI IV ertapenem HEMATOLOGY: Unspecified myeloproliferative disorder Leukocytosis Thrombocytosis CBC daily METABOLIC: ? Euthyroid sick syndrome Monitor INFECTIOUS DISEASE: Septic shock likely due to pneumonia ESBL UTI Zosyn switched to IV ertapenem 05/19 DIET: Tube feedings DVT prophylax: 1 mg/kg twice daily GI prophylaxis: Famotidine 20 twice daily Bowel regimen: Lactulose daily Code status: Full code LINES/DRAINS/ACCESS: IV access: Right IJ CVC 05/17 Drips: Versed fentanyl Levophed Walter catheter: 05/16 DISPOSITION: ICU Patient's status discussed with patient's son and daughter at bedside Critical care time spent more than 66 minutes, including patient care, chart review, and updating the family. Excluding any procedures Case discussed with Dr. Kern Plan discussed with: Spouse, Son My Orders My Orders Orders - GILLIAN MUSA RESIDENT Procedure Category Date Status Time LIVER US 05/20/25 Resulted 16:29 Dietary Evaluation Review Comments: 1) If patient remains NPO > 7 days, consider EN/TPN to meet at least 75% of estimated energy needs 2) If GI is preferred, consider Jevity 1.2 @ 35 mL/hr goal rate as tolerated. Flush with 200 mL free H2O Q6H. EN regimen will provide 1008 kcals, 47g Pro, 1478 mL free H2O (including flushes) per 24 hrs. Goal rate will meet ~97% estimated energy needs and 64% estimated protein needs 3) Advanced to regular diet when medically feasible, pending ST approval 4) Follow-up with pulmonology 5) Continue to monitor I&O, labs, and skin integrity Expected Outcomes/Goals: 1) labs to improve 2) patient to receive nutritional support within 7 days of NPO status 3) diet to advance 4) f/u in 2-3 days Date of Service: May 20, 2025 Billing Provider: FAREED KERN MD Common Visit Codes: [id number] CARE 30-74 MIN GILLIAN MUSA May 20, 2025 19:03 FAREED KERN MD May 21, 2025 11:31
--- NOTE | 2025-05-20 22:01 | DVHPN2 ---
Progress Note - Dictate Date Seen: May 20, 2025 Medical Necessity Reason Pt with a Central, PICC or Fol: Yes The following are medically ne: Central Line, Walter Catheter Reason for walter catheter: Strict I&O Subjective Ms. Bauman is a 64 years old right-handed female with a history of dyslipidemia, asthma, aortic stenosis, COPD, myeloproliferative disorder, myotonic muscular dystrophy, the patient was taken to the hospital with a chief complaint of shortness of breath, I have seen and examined the patient, I have talked to her nurse, she is responsive to light painful stimuli, possibly to light touch as well Levo 8 mcg/minute, Versed 4 mg/hour, fentanyl 175 mcg/hour. FiO2: 50% CBC, 05/16/2021: Respiratory acidosis, 05/17/2025: Respiratory acidosis, 05/18/25: Hypoxia, carbon dioxide retention WBC/HB/PLT/MCV, 05/16/2025: 62.5/15. 4/640/94.2, 05/17/2025: 72.6/16.1/520/91.2, 05/18/2025: 25.1/13.3/248/90.4 BUN/CR, 05/17/2025: 15/0.56 GFR, 05/17/2025: 103 Lactic acid, 05/16/25: 5.3 HGB A1c, 05/16/2025: 4.2 Troponin one high sensitivity, 05/16/2025: 1209, 2081, 4211, 05/18/2025: 7100 TBI/AST/ALT/AP, 05/17/2025: 1.8/86/25/183 TG/HDL/LDL/HDL, 05/18/2025: 198/116/54/34 CT head, 05/17/2025: 1. No acute intracranial abnormality. 2. Chronic sequelae of microvascular disease CT head, 05/18/2025: No acute intracranial abnormality seen. Advanced chronic small vessel ischemic eubanks vital signs Vital Sign Date Time Temp Pulse Resp B/P (MAP) Pulse Ox O2 Delivery O2 Flow Rate FiO2 05/20/25 21:15 99.0 82 22 123/79 (94) 100 210.2 05/20/25 20:40 50 05/20/25 20:00 Mechanical Ventilator+ Total Intake and Output 05/19/25 05/19/25 05/20/25 15:00 23:00 07:00 Intake Total 615.75 ml 620.0 ml 506.25 ml Output Total 375 ml 350 ml Balance 615.75 ml 245.0 ml 156.25 ml medications Current Medications Medications Dose Ordered Sig/Atilio Route Start Time Stop Time Status Last Admin Dose Admin Midazolam HCl 50 ml @ 1 mls/hr Q24H IV 05/16/25 22:00 05/20/25 20:00 4 MLS/HR Fentanyl Citrate 250 ml @ 2.5 mls/hr Q24H IV 05/16/25 22:00 05/20/25 20:01 17.5 MLS/HR Vancomycin HCl 0 ml @ 0 mls/hr UD IV 05/16/25 22:30 Famotidine 20 mg Q12HR IV 05/17/25 10:00 05/20/25 09:12 20 MG Diagnostic Test (Pha) 1 strip Q6HR 05/17/25 00:00 05/20/25 18:00 1 STRIP Insulin Human Regular Q6HR SC 05/17/25 00:00 05/20/25 18:28 2 UNITS Dextrose 50 ml UD PRN IV 05/16/25 22:30 Ondansetron HCl 4 mg Q4HP PRN IV 05/16/25 22:30 Nitroglycerin 0.4 mg Q5MINP PRN SL 05/16/25 22:30 Norepinephrine Bitartrate 250 ml @ 3.75 mls/hr Q24H IV 05/17/25 22:11 05/20/25 16:36 15 MLS/HR Acetaminophen 650 mg Q6HP PRN GT 05/17/25 11:45 05/17/25 18:12 650 MG Ipratropium [place] 0.5 mg Q6HR NEB 05/17/25 12:00 05/20/25 18:17 0.5 MG Budesonide 0.5 mg BID NEB 05/17/25 22:00 05/20/25 06:49 0.5 MG Albuterol 2.5 mg Q6HR NEB 05/17/25 18:00 05/20/25 18:17 2.5 MG Methylprednisolone Sodium Succinate 60 mg BID IV 05/17/25 12:30 05/20/25 09:12 60 MG Vancomycin HCl 100 ml @ 100 mls/hr Q12H IV 05/18/25 21:00 05/20/25 20:57 100 MLS/HR Enteral Nutritional Formula 1,000 ml 30ML/HR GT 05/18/25 14:30 Enoxaparin Sodium 50 mg Q12HR SC 05/19/25 22:00 Aspirin 81 mg DAILY PO 05/20/25 10:00 Atorvastatin Calcium 40 mg HS PO 05/19/25 22:00 05/19/25 21:58 40 MG Ertapenem 1 gm/ Sodium Chloride 50 ml @ 100 mls/hr DAILY@1200 IV 05/20/25 12:00 05/20/25 12:12 100 MLS/HR objective The patient is well-nourished and well-developed with no distress. The patient is intubated MENTAL STATUS: Subjective CRANIAL NERVES: Pupils are round and nonreactive, very small, not sure if the right side is bigger. There are corneal reflexes and doll's eyes phenomenon. No signs of facial weakness. There are gagging or coughing reflexes SENSATION: Responses to pain stimuli. MOTOR: Normal tone in the upper and lower extremity. Normal muscle bulk. No fasciculations. No spontaneous movement. REFLEXES: Deep tendon reflexes are symmetrical. Upgoing toes in both feet. CEREBELLAR/COORDINATION: Deferred GAIT/STATION: deferred. laboratory and microbiology Laboratory Tests 05/20/25 03:10 Test 05/20/25 03:10 Range/Units Serum Glucose 160 H 74-106 mg/dL Problem List Cardiopulmonary arrest Coma Metabolic encephalopathy Hypoxic encephalopathy Toxic encephalopathy Acute respiratory failure Chronic respiratory failure/COPD on home oxygen Elevated troponin I high sensitivity/heart attack Myeloproliferative disorder Assessment/Plan Monitoring Supportive treatment ICU care Follow up labs Stabilize vitals/pressor drip Respiratory support/vent management Oxygen IV antibiotics Lovenox 50 mg subQ q.12 hours Aspirin 81 mg daily Lipitor 40 mg daily GI prophylaxis/famotidine More recommendation per clinical course This medical document was created using an electronic medical record system with [employer] dictation system. Although this document has been carefully reviewed, there may still be some phonetic and typographical errors. These areas are purely typographical due to imperfections of the software programs, and do not reflect any compromise in the patient's medical care Prognosis guarded Dietary Evaluation Review Comments: 1) If patient remains NPO > 7 days, consider EN/TPN to meet at least 75% of estimated energy needs 2) If GI is preferred, consider Jevity 1.2 @ 35 mL/hr goal rate as tolerated. Flush with 200 mL free H2O Q6H. EN regimen will provide 1008 kcals, 47g Pro, 1478 mL free H2O (including flushes) per 24 hrs. Goal rate will meet ~97% estimated energy needs and 64% estimated protein needs 3) Advanced to regular diet when medically feasible, pending ST approval 4) Follow-up with pulmonology 5) Continue to monitor I&O, labs, and skin integrity Expected Outcomes/Goals: 1) labs to improve 2) patient to receive nutritional support within 7 days of NPO status 3) diet to advance 4) f/u in 2-3 days Plan discussed with: Other Critical Care Time(min): 30 FÉLIX MCDOWELL MD May 20, 2025 22:01
[2025-05-21] VITALS (114 sets, daily range): BP systolic 83–142; BP diastolic 53–94; PULSE 65–132; RESP 16–22; TEMP 98.8–99.7; O2SAT 69–100
[2025-05-21 03:27] LABS: Hematocrit 36.5 % (36.0-46.0); Hemoglobin 12.4 g/dL (12.2-16.2); Mean Corpuscular Hemoglobin 30.4 pg (28.0-32.0); Mean Corpuscular Volume 89.7 fL (80.0-100.0)
[2025-05-21 03:45] LABS: Albumin 3.2 g/dL (3.2-4.8); Alkaline Phosphatase 78 U/L (46-116); Anion Gap 6 (5-15); BUN/Creatinine Ratio 31.7 (10.0-20.0); Blood Urea Nitrogen 13 mg/dL (9-23); Calcium 9.8 mg/dL (8.7-10.4); Carbon Dioxide 31 mmol/L (20-31); Chloride 105 mmol/L (98-107); Magnesium 2.1 mg/dL (1.6-2.6); Potassium 4.5 mmol/L (3.5-5.1); Sodium 142 mmol/L (136-145)
[2025-05-21 03:46] LABS: Bilirubin, Total 0.6 mg/dL (0.2-1.0)
[2025-05-21 03:49] LABS: Alanine Aminotransferase 43 U/L (7-40); Glucose 141 mg/dL (74-106); Total Protein 4.9 g/dL (5.7-8.2)
[2025-05-21 04:18] LABS: Total Cells Counted 100.0 (100)
[2025-05-21] MEDS: MIDAZOLAM DRIP 50 mg/50mL 50 ML IV ONE (05:24)
--- NOTE | 2025-05-21 05:55 | DVH ---
CHEST RADIOGRAPH Indication: Follow up on right lower lobe opacity Technique: Single frontal view of the chest was obtained COMPARISON: XY CHEST XRAY 1 VIEW on DOS: 05/20/25, XY CHEST PORTABLE on DOS: 05/19/25, XY CHEST PORTABLE on DOS: 05/18/25, XY CHEST XRAY 1 VIEW on DOS: 05/16/25, XY CHEST PORTABLE on DOS: 05/16/25, XY CHEST XRA Y 1 VIEW on DOS: 05/20/25 FINDINGS: Lines and Tubes: Endotracheal tube, enteric catheter and right central venous catheter in satisfactor y position. Lungs: Multifocal airspace disease with more focal consolidation in the right lung base. Pleura: No effusion. No pneumothorax. Cardiomediastinal contours: Unremarkable Bones: Unremarkable IMPRESSION: Lines and tubes in satisfactory position. No significant interval change.
[2025-05-21 08:10] LABS: Base Excess 3.2 mmol/L (-2.0-3.0)
[2025-05-21] MEDS: LACTULOSE 20Gm/30ML SOLN PO SCH (10:24)
--- NOTE | 2025-05-21 10:42 | DVHPN2 ---
Progress Note - Dictate Date Seen: May 21, 2025 Medical Necessity Reason Pt with a Central, PICC or Fol: Yes The following are medically ne: Central Line, Walter Catheter Reason for walter catheter: Strict I&O Subjective Ms. Bauman is a 64 years old right-handed female with a history of dyslipidemia, asthma, aortic stenosis, COPD, myeloproliferative disorder, myotonic muscular dystrophy, the patient was taken to the hospital with a chief complaint of shortness of breath, I have seen and examined the patient, I have talked to her nurse, family in the room, she is responsive to light painful stimuli, possibly to light touch as well Levo 8 mcg/minute, Versed 0 mg/hour, fentanyl 175 mcg/hour. CBC, 05/16/2021: Respiratory acidosis, 05/17/2025: Respiratory acidosis, 05/18/25: Hypoxia, carbon dioxide retention WBC/HB/PLT/MCV, 05/16/2025: 62.5/15. 4/640/94.2, 05/17/2025: 72.6/16.1/520/91.2, 05/18/2025: 25.1/13.3/248/90.4 BUN/CR, 05/17/2025: 15/0.56 GFR, 05/17/2025: 103 Lactic acid, 05/16/25: 5.3 HGB A1c, 05/16/2025: 4.2 Troponin one high sensitivity, 05/16/2025: 1209, 2081, 4211, 05/18/2025: 7100 TBI/AST/ALT/AP, 05/17/2025: 1.8/86/25/183 TG/HDL/LDL/HDL, 05/18/2025: 198/116/54/34 CT head, 05/17/2025: 1. No acute intracranial abnormality. 2. Chronic sequelae of microvascular disease CT head, 05/18/2025: No acute intracranial abnormality seen. Advanced chronic small vessel ischemic eubanks vital signs Vital Sign Date Time Temp Pulse Resp B/P (MAP) Pulse Ox O2 Delivery O2 Flow Rate FiO2 05/21/25 10:30 99.0 88 22 94/56 (69) 69 210.2 05/21/25 10:00 40 05/21/25 09:41 Mechanical Ventilator+ Total Intake and Output 05/20/25 05/20/25 05/21/25 15:00 23:00 07:00 Intake Total 407.00 ml 378.0 ml 534.0 ml Output Total 375 ml 325 ml Balance 407.00 ml 3.0 ml 209.0 ml medications Current Medications Medications Dose Ordered Sig/Atilio Route Start Time Stop Time Status Last Admin Dose Admin Midazolam HCl 50 ml @ 1 mls/hr Q24H IV 05/16/25 22:00 05/21/25 05:24 4 MLS/HR Fentanyl Citrate 250 ml @ 2.5 mls/hr Q24H IV 05/16/25 22:00 05/21/25 07:48 17.5 MLS/HR Vancomycin HCl 0 ml @ 0 mls/hr UD IV 05/16/25 22:30 Famotidine 20 mg Q12HR IV 05/17/25 10:00 05/21/25 07:54 20 MG Diagnostic Test (Pha) 1 strip Q6HR 05/17/25 00:00 05/21/25 08:59 1 STRIP Insulin Human Regular Q6HR SC 05/17/25 00:00 05/21/25 05:31 3 UNITS Dextrose 50 ml UD PRN IV 05/16/25 22:30 Ondansetron HCl 4 mg Q4HP PRN IV 05/16/25 22:30 Nitroglycerin 0.4 mg Q5MINP PRN SL 05/16/25 22:30 Norepinephrine Bitartrate 250 ml @ 3.75 mls/hr Q24H IV 05/17/25 22:11 05/21/25 07:49 15 MLS/HR Acetaminophen 650 mg Q6HP PRN GT 05/17/25 11:45 05/21/25 09:00 650 MG Ipratropium [place] 0.5 mg Q6HR NEB 05/17/25 12:00 05/21/25 06:01 0.5 MG Budesonide 0.5 mg BID NEB 05/17/25 22:00 05/21/25 06:01 0.5 MG Albuterol 2.5 mg Q6HR NEB 05/17/25 18:00 05/21/25 06:01 2.5 MG Methylprednisolone Sodium Succinate 60 mg BID IV 05/17/25 12:30 05/21/25 07:54 60 MG Vancomycin HCl 100 ml @ 100 mls/hr Q12H IV 05/18/25 21:00 05/21/25 09:00 100 MLS/HR Enteral Nutritional Formula 1,000 ml 30ML/HR GT 05/18/25 14:30 Enoxaparin Sodium 50 mg Q12HR SC 05/19/25 22:00 Aspirin 81 mg DAILY PO 05/20/25 10:00 05/21/25 07:53 81 MG Atorvastatin Calcium 40 mg HS PO 05/19/25 22:00 05/20/25 22:11 40 MG Ertapenem 1 gm/ Sodium Chloride 50 ml @ 100 mls/hr DAILY@1200 IV 05/20/25 12:00 05/20/25 12:12 100 MLS/HR Lactulose 30 ml BID PO 05/21/25 10:00 05/21/25 10:24 30 ML Vancomycin HCl 100 ml @ 100 mls/hr Q16H IV 05/22/25 01:00 UNV objective The patient is well-nourished and well-developed with no distress. The patient is intubated MENTAL STATUS: Subjective CRANIAL NERVES: Pupils are round and nonreactive, very small, not sure if the right side is bigger. There are corneal reflexes and doll's eyes phenomenon. No signs of facial weakness. There are gagging or coughing reflexes SENSATION: Responses to pain stimuli. MOTOR: Normal tone in the upper and lower extremity. Normal muscle bulk. No fasciculations. No spontaneous movement. REFLEXES: Deep tendon reflexes are symmetrical. Upgoing toes in both feet. CEREBELLAR/COORDINATION: Deferred GAIT/STATION: deferred. laboratory and microbiology Laboratory Tests 05/21/25 02:56 Test 05/21/25 02:56 Range/Units Serum Glucose 141 H 74-106 mg/dL Problem List Cardiopulmonary arrest Coma Metabolic encephalopathy Hypoxic encephalopathy Toxic encephalopathy Acute respiratory failure Chronic respiratory failure/COPD on home oxygen Elevated troponin I high sensitivity/heart attack Myeloproliferative disorder Assessment/Plan Monitoring Supportive treatment ICU care Follow up labs Stabilize vitals/pressor drip Respiratory support/vent management Oxygen IV antibiotics Lovenox 50 mg subQ q.12 hours Aspirin 81 mg daily Lipitor 40 mg daily GI prophylaxis/famotidine More recommendation per clinical course This medical document was created using an electronic medical record system with [employer] dictation system. Although this document has been carefully reviewed, there may still be some phonetic and typographical errors. These areas are purely typographical due to imperfections of the software programs, and do not reflect any compromise in the patient's medical care Prognosis guarded Dietary Evaluation Review Comments: 1) If patient remains NPO > 7 days, consider EN/TPN to meet at least 75% of estimated energy needs 2) If GI is preferred, consider Jevity 1.2 @ 35 mL/hr goal rate as tolerated. Flush with 200 mL free H2O Q6H. EN regimen will provide 1008 kcals, 47g Pro, 1478 mL free H2O (including flushes) per 24 hrs. Goal rate will meet ~97% estimated energy needs and 64% estimated protein needs 3) Advanced to regular diet when medically feasible, pending ST approval 4) Follow-up with pulmonology 5) Continue to monitor I&O, labs, and skin integrity Expected Outcomes/Goals: 1) labs to improve 2) patient to receive nutritional support within 7 days of NPO status 3) diet to advance 4) f/u in 2-3 days Plan discussed with: Daughter, Son, Other FÉLIX MCDOWELL MD May 21, 2025 10:42
[2025-05-21] MEDS: NOREPINEPHRINE 8 MG/250ML KIT 250 ML IV SCH (11:13)
--- NOTE | 2025-05-21 11:20 | DVHPN2 ---
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 Patient remains on Levophed drip. Objective vital signs Vital Sign Date Time Temp Pulse Resp B/P (MAP) Pulse Ox O2 Delivery O2 Flow Rate FiO2 05/21/25 11:13 98/56 05/21/25 11:00 99.0 90 22 93 210.2 05/21/25 10:00 40 05/21/25 09:41 Mechanical Ventilator+ Total Intake and Output 05/20/25 05/20/25 05/21/25 15:00 23:00 07:00 Intake Total 407.00 ml 378.0 ml 534.0 ml Output Total 375 ml 325 ml Balance 407.00 ml 3.0 ml 209.0 ml medications Current Medications Medications Dose Ordered Sig/Atilio Route Start Time Stop Time Status Last Admin Dose Admin Midazolam HCl 50 ml @ 1 mls/hr Q24H IV 05/16/25 22:00 05/21/25 05:24 4 MLS/HR Fentanyl Citrate 250 ml @ 2.5 mls/hr Q24H IV 05/16/25 22:00 05/21/25 07:48 17.5 MLS/HR Vancomycin HCl 0 ml @ 0 mls/hr UD IV 05/16/25 22:30 Famotidine 20 mg Q12HR IV 05/17/25 10:00 05/21/25 07:54 20 MG Diagnostic Test (Pha) 1 strip Q6HR 05/17/25 00:00 05/21/25 08:59 1 STRIP Insulin Human Regular Q6HR SC 05/17/25 00:00 05/21/25 05:31 3 UNITS Dextrose 50 ml UD PRN IV 05/16/25 22:30 Ondansetron HCl 4 mg Q4HP PRN IV 05/16/25 22:30 Nitroglycerin 0.4 mg Q5MINP PRN SL 05/16/25 22:30 Acetaminophen 650 mg Q6HP PRN GT 05/17/25 11:45 05/21/25 09:00 650 MG Ipratropium [place] 0.5 mg Q6HR NEB 05/17/25 12:00 05/21/25 06:01 0.5 MG Budesonide 0.5 mg BID NEB 05/17/25 22:00 05/21/25 06:01 0.5 MG Albuterol 2.5 mg Q6HR NEB 05/17/25 18:00 05/21/25 06:01 2.5 MG Methylprednisolone Sodium Succinate 60 mg BID IV 05/17/25 12:30 05/21/25 07:54 60 MG Vancomycin HCl 100 ml @ 100 mls/hr Q12H IV 05/18/25 21:00 05/21/25 09:00 100 MLS/HR Enteral Nutritional Formula 1,000 ml 30ML/HR GT 05/18/25 14:30 Enoxaparin Sodium 50 mg Q12HR SC 05/19/25 22:00 Aspirin 81 mg DAILY PO 05/20/25 10:00 05/21/25 07:53 81 MG Atorvastatin Calcium 40 mg HS PO 05/19/25 22:00 05/20/25 22:11 40 MG Ertapenem 1 gm/ Sodium Chloride 50 ml @ 100 mls/hr DAILY@1200 IV 05/20/25 12:00 05/20/25 12:12 100 MLS/HR Lactulose 30 ml BID PO 05/21/25 10:00 05/21/25 10:24 30 ML Vancomycin HCl 100 ml @ 100 mls/hr Q16H IV 05/22/25 01:00 UNV Norepinephrine Bitartrate 250 ml @ 1.875 mls/ hr Q24H IV 05/21/25 11:00 05/21/25 11:13 11.25 MLS/HR Examination: GENERAL:Abnormal, LUNGS:Abnormal (Mechanically ventilated, Fio2 30%, PEEP 5.0), CVS:Normal, NEURO:Abnormal (Chemically sedated) laboratory and microbiology Laboratory Tests 05/21/25 02:56 Test 05/21/25 02:56 Range/Units Serum Glucose 141 H 74-106 mg/dL Problem List/Assessment/Plan Problem List/Assessment/Plan Septic shock with PNA COPD exacerbation, now mechanically ventilated Acute on chronic hypoxic respiratory failure NSTEMI, type II Status post surgical aortic valve replacement (bioprosthetic, 2023) Hyperlipidemia Myotonic muscular dystrophy History of tobacco use Plan/Recommendation (Dr. Hawthorne) Transthoracic echocardiogram completed revealed there is anterior apical hypokinesis, anterior septal hypokinesis, global hypokinesis and LVEF is approximately 20-25% with normal right ventricular function. The patient underwent a coronary angiogram with left heart catheterization on 05/20/2025 with no catheter based intervention. Ventriculography reveals an EF of approximately 25-30%. The patient is currently on vasopressor therapy for hemodynamic support. We will recommend to initiate guideline directed medical therapy for CHF once patient is off of vasopressors and has optimal blood pressures. There is no further inpatient cardiac workup indicated at this time. Family at bedside states that the patient has a cost and risk analysis manager in [place] for whom she will be following up with. Kindly reconsult if needed. Thank you for allowing us to care for this patient. Please call with any questions or concerns. Critical care time spent: 30 minutes. This medical document was created using an electronic medical record system with voice recognition software and computerized dictation system. Although this document has been carefully reviewed, there might still be some phonetic and typographical errors. Occasional wrong-word or ``sound-alike substitutions may have occurred due to the inherent limitations of voice recognition software. These areas are purely typographical due to imperfections of the software programs and do not reflect any compromise in the patient's medical care. Please read the chart carefully and recognize, using context, where these substitutions have occurred. Plan discussed with: Daughter, Son, Other (Bedside RN) Dietary Evaluation Review Comments: 1) If patient remains NPO > 7 days, consider EN/TPN to meet at least 75% of estimated energy needs 2) If GI is preferred, consider Jevity 1.2 @ 35 mL/hr goal rate as tolerated. Flush with 200 mL free H2O Q6H. EN regimen will provide 1008 kcals, 47g Pro, 1478 mL free H2O (including flushes) per 24 hrs. Goal rate will meet ~97% estimated energy needs and 64% estimated protein needs 3) Advanced to regular diet when medically feasible, pending ST approval 4) Follow-up with pulmonology 5) Continue to monitor I&O, labs, and skin integrity Expected Outcomes/Goals: 1) labs to improve 2) patient to receive nutritional support within 7 days of NPO status 3) diet to advance 4) f/u in 2-3 days Date of Service: May 21, 2025 Billing Provider: CHAIM BARROSO Common Visit Codes: [id number] CARE 30-74 MIN CHAIM BARROSO May 21, 2025 11:20
--- NOTE | 2025-05-21 11:48 | MEDREC ---
[facility] Intervention Section I [facility] Intervention: Review courses of therapy (CONSIDER D/C VANCO, NO MRSA GROWTH ON RC, MRSA NARES NEGATIVE) DOROTHY [place] [facility] RESIDENT May 21, 2025 11:48
--- NOTE | 2025-05-21 15:52 | DVH ---
EXAM: CT CHEST WITHOUT CONTRAST History: right pneumonia Comparison Study: CT angio chest from 09/08/2024 TECHNIQUE: Multidetector CT of the chest was performed. Imaging was performed without IV contrast. Ax ial, coronal, and sagittal multiplanar reformats were obtained from the axial data set by the technol ogaudie. Radiation Dose : CTDI vol 4.79 mGy, DLP 192.78 mGy*cm. Findings: Lungs: Centrilobular emphysema. 7.1 x 3.8 cm lobulated opacity in the right lower lobe. Bilateral dep endent atelectasis, [id number]-left. Pleura: Unremarkable Heart/Great vessels: No cardiomegaly or pericardial effusion. Mediastinum: Mildly prominent mediastinal nodes. Soft tissues/Bones: Mild multilevel degenerative changes of the thoracic spine. The partially visualized upper abdomen is within normal limits. Impression: 1. Large right lower lobe lobulated opacity favored to reflect an infectious / inflammatory etiology. Doubt malignancy given size and no definite right lower lobe pulmonary nodules appreciated on 09/08. 2. Mildly prominent mediastinal nodes favored reactive. 3. Centrilobular emphysema.
[2025-05-21 15:56] LABS: Hematocrit 39.1 % (36.0-46.0); Hemoglobin 13.0 g/dL (12.2-16.2)
--- NOTE | 2025-05-21 18:15 | DVHPNRES ---
Progress Note Date Seen: May 21, 2025 Resident Creating Document: GILLIAN MUSA RESIDENT Medical Necessity Reason Pt with a Central, PICC or Fol: Yes The following are medically ne: Central Line, Walter Catheter Reason for walter catheter: Strict I&O Subjective Review of Systems This is a 64-year-old female with COPD on 3 L home oxygen, surgical aortic valve replacement 03/2024, myotonic muscle dystrophy, former nicotine dependence, hyperlipidemia, unspecified myeloproliferative disorder who presented to the ER on 05/16 for the evaluation of shortness of breaths. Per son at the bedside, patient recently lost her dog and was very emotional under stress, she started experiencing shortness of breaths for the past day, associated with wheezing, on arrival to the ER patient was saturating 70% on room air, Solu-Medrol, magnesium was given to the patient, venous pCO2 was 119, WBC count 62, she had increased workup breathing and therefore patient was intubated 05/16 at around 11:00 p.m., blood pressure was 70/22 following intubation patient underwent cardiac arrest, CPR was resumed for 10 minutes-2 epis and 2 bicarb pushes were given to the patient. No defibrillation. Following that patient has been on vanc/Zosyn/azithromycin/Solu-Medrol 60 IV b.i.d./Versed/fentanyl/Levophed. Blood cultures preliminary negative, respiratory culture showing phlegm Lantus yeast, Gram-positive cocci, urine culture growing 1 lac Gram-negative rods, CT head was negative, troponin 1200 increasing to 7100, decreasing to 4500. BNP on arrival 809, lactic acidosis. Past medical/surgical history COPD on 3 L home oxygen, surgical aortic valve replacement 03/2024, myotonic muscle dystrophy, former nicotine dependence, hyperlipidemia, unspecified myeloproliferative disorder, hysterectomy, Home medication: Aspirin, prednisolone, atorvastatin , Trelegy inhaler Social history: Quit smoking 6 years back, uses a cane to ambulate. 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 Payton 05/19, Patient seen and examined in 112, sedation vacation was completed this morning, patient responded to commands by opening her eyes overnight 100.2 F low-grade fever, blood pressure 87 systolic to 121 systolic, 30% FiO2, urine output 700, prelim EF 20%, cardiology recommends left heart catheterization tomorrow. 05/20-patient seen and examined, chest x-ray shows right lower lobe opacity mixed respiratory acidosis with metabolic alkalosis, left heart catheterization today. WBC increased to twenty-seven, liver ultrasound shows Mildly dilated 7.5 mm common duct. Please correlate with laboratory values and consider MRCP if warranted. LFTs unremarkable. One set of blood culture positive for gram- positive cocci in clusters, patient on vanc. Re 05/21 -hypoactive bowel sounds, systolic murmur over femoral site of catheterization, no bleeding, no erythema, no swelling. Solu-Medrol decreased to 40 mg IV b.i.d., sedation turned off. On Levophed. CT chest without contrast shows 7.1 x 3.8 cm lobulated opacity in the right lower lobe. Bilateral dependent atelectasis, [id number]-yugm-left. Large right lower lobe lobulated opacity favored to reflect an infectious / inflammatory etiology. Doubt malignancy given size and no definite right lower lobe pulmonary nodules appreciated on 09/08/2024. Mildly prominent mediastinal nodes favored reactive. Centrilobular emphysema. Left heart catheterization showed Ventriculography in the SINGH projection shows an EF of about 25-30%. There is anterior apical and inferior apical hypokinesis and anterior and inferior mid and basal akinesis. This is an unusual presentation with we will be considered the reverse characteristics of a takotsubo syndrome. Lovenox decreased to 50 mg sc daily. Patient does not take any blood thinners at home. CPAP trial in a.m.. Objective vital signs Vital Sign Date Time Temp Pulse Resp B/P (MAP) Pulse Ox O2 Delivery O2 Flow Rate FiO2 05/21/25 17:51 119 05/21/25 17:49 30 05/21/25 17:49 22 100 Mechanical Ventilator+ 05/21/25 17:45 127/74 (91) 05/21/25 15:45 99.7 99.7 Total Intake and Output 05/20/25 05/20/25 05/21/25 15:00 23:00 07:00 Intake Total 407.00 ml 378.0 ml 534.0 ml Output Total 375 ml 325 ml Balance 407.00 ml 3.0 ml 209.0 ml medications Current Medications Medications Dose Ordered Sig/Atilio Route Start Time Stop Time Status Last Admin Dose Admin Midazolam HCl 50 ml @ 1 mls/hr Q24H IV 05/16/25 22:00 05/21/25 05:24 4 MLS/HR Fentanyl Citrate 250 ml @ 2.5 mls/hr Q24H IV 05/16/25 22:00 05/21/25 07:48 17.5 MLS/HR Vancomycin HCl 0 ml @ 0 mls/hr UD IV 05/16/25 22:30 Famotidine 20 mg Q12HR IV 05/17/25 10:00 05/21/25 07:54 20 MG Diagnostic Test (Pha) 1 strip Q6HR 05/17/25 00:00 05/21/25 16:50 1 STRIP Insulin Human Regular Q6HR SC 05/17/25 00:00 05/21/25 17:07 2 UNITS Dextrose 50 ml UD PRN IV 05/16/25 22:30 Ondansetron HCl 4 mg Q4HP PRN IV 05/16/25 22:30 Nitroglycerin 0.4 mg Q5MINP PRN SL 05/16/25 22:30 Acetaminophen 650 mg Q6HP PRN GT 05/17/25 11:45 05/21/25 09:00 650 MG Ipratropium [place] 0.5 mg Q6HR NEB 05/17/25 12:00 05/21/25 11:37 0.5 MG Budesonide 0.5 mg BID NEB 05/17/25 22:00 05/21/25 06:01 0.5 MG Albuterol 2.5 mg Q6HR NEB 05/17/25 18:00 05/21/25 11:37 2.5 MG Enteral Nutritional Formula 1,000 ml 30ML/HR GT 05/18/25 14:30 Enoxaparin Sodium 50 mg Q12HR SC 05/19/25 22:00 05/21/25 10:00 50 MG Aspirin 81 mg DAILY PO 05/20/25 10:00 05/21/25 07:53 81 MG Ertapenem 1 gm/ Sodium Chloride 50 ml @ 100 mls/hr DAILY@1200 IV 05/20/25 12:00 05/21/25 12:02 100 MLS/HR Lactulose 30 ml BID PO 05/21/25 10:00 05/21/25 10:24 30 ML Vancomycin HCl 100 ml @ 100 mls/hr Q16H IV 05/22/25 01:00 Norepinephrine Bitartrate 250 ml @ 1.875 mls/ hr Q24H IV 05/21/25 11:00 05/21/25 11:13 11.25 MLS/HR Methylprednisolone Sodium Succinate 40 mg BID IV 05/21/25 22:00 Examination Female patient lying in the bed comfortably, intubated and mechanically ventilated, no acute distress General: Low-grade fever, RASS -4, palor, mucosae are moist Cardiovascular: Tachycardia but Regular S1 and S2. No murmurs, gallops or rubs. No JVD elevation. Trace Pitting pedal edema Respiratory: Decreased breath sounds in the lower lobes, no wheezing heard Abdomen: Soft, nontender, nondistended, normoactive bowel sounds, no rebound tenderness, no organomegaly, no masses Genitourinary: Deferred MSK/skin: Skin is dry and warm Neurological: Pupils are isocoric and reactive. laboratory and microbiology Laboratory Tests 05/21/25 15:40 05/21/25 02:56 Test 05/21/25 02:56 Range/Units Serum Glucose 141 H 74-106 mg/dL Microbiology Date/Time Source Procedure Growth Status 05/17/25 01:30 Nose MRSA Screen - Final Complete 05/17/25 01:30 Urine - [place] Urine Culture - Final Klebsiella pneumoniae - ESBL Complete 05/16/25 22:02 Sputum Gram Stain - Final Resulted 05/16/25 22:02 Sputum Respiratory Culture - Preliminary Resulted 05/16/25 20:09 Blood Blood Culture - Preliminary NO GROWTH AFTER 72 HOURS OF INCUBATION. Resulted Labs and/or images reviewed: Labs reviewed by me, Image(s) reviewed by me Problem List/Assessment/Plan Problem List/Assessment/Plan NEURO: Chronic vessel ischemic disease Duchenne myotonic dystrophy CT head shows chronic vessel ischemic disease. No acute intracranial abnormality. CARDIOVASCULAR: Status post cardiac arrest Hypotension requiring pressor support NSTEMI likely type 1 Septic Shock secondary to pneumonia Heart failure with reduced ejection fraction Rule out ischemic cardiomyopathy Dyslipidemia Status post surgical aortic valve replacement 2023 Cardiology: Status post left heart catheterization, continue aspirin and atorvastatin Left heart catheterization showed Ventriculography in the SINGH projection shows an EF of about 25-30%. There is anterior apical and inferior apical hypokinesis and anterior and inferior mid and basal akinesis. This is an unusual presentation with we will be considered the reverse characteristics of a takotsubo syndrome. Lovenox decreased to 50 mg sc daily. Patient does not take any blood thinners at home. CPAP trial in a.m.. Echocardiogram pending Aspirin 81 mg daily, atorvastatin 40 mg p.o. HS daily Lovenox 1 mg/kg b.i.d. PULMONARY: Acute on chronic hypoxic respiratory failure status post intubation 05/16 Acute COPD exacerbation Chronic oxygen dependence Possible gram positive/Gram-negative pneumonia Former nicotine dependence 7.1 x 3.8 cm lobulated opacity Continue IV vancomycin, IV ertapenem, Solu-Medrol 60 b.i.d. Ipratropium, albuterol, budesonide nebulized treatments Zosyn switched to IV ertapenem 05/19 CT chest without contrast shows 7.1 x 3.8 cm lobulated opacity in the right lower lobe. Bilateral dependent atelectasis, [id number]-[id number]-aufc-left. Large right lower lobe lobulated opacity favored to reflect an infectious / inflammatory etiology. Doubt malignancy given size and no definite right lower lobe pulmonary nodules appreciated on 09/08/2024. Mildly prominent mediastinal nodes favored reactive. Centrilobular emphysema. GASTROINTESTINAL: Transaminitis Ultrasound pending GENITOURINARY: Complicated Klebsiella ESBL cystitis History of ESBL UTI IV ertapenem HEMATOLOGY: Unspecified myeloproliferative disorder Leukocytosis Thrombocytosis CBC daily METABOLIC: ? Euthyroid sick syndrome Monitor INFECTIOUS DISEASE: Septic shock likely due to pneumonia ESBL UTI Zosyn switched to IV ertapenem 05/19 DIET: Tube feedings DVT prophylax: 1 mg/kg twice daily GI prophylaxis: Famotidine 20 twice daily Bowel regimen: Lactulose daily Code status: Full code LINES/DRAINS/ACCESS: IV access: Right IJ CVC 05/17 Drips: Versed fentanyl Levophed Walter catheter: 05/16 DISPOSITION: ICU Patient's status discussed with patient's son and daughter at bedside Critical care time spent more than 62 minutes, including patient care, chart review, and updating the family. Excluding any procedures Case discussed with Dr. Kern Plan discussed with: Son My Orders My Orders Orders - GILLIAN MUSA RESIDENT Procedure Category Date Status Time Chest Xray 1 View XY 05/21/25 Resulted 04:00 Abg W/ Co-Ox RT 05/21/25 Logged 04:00 Blood Culture HANSEL 05/20/25 In Process 19:04 Lactulose Oral PHA 05/21/25 In Process 10:00 Urine Bacterial HANSEL 05/21/25 In Process Culture 15:43 Dexmedetomidine Hcl PHA 05/21/25 In Process In D5w (Precedex) 16:00 Complete Blood Count LAB 05/22/25 Verified 04:00 Comprehensive LAB 05/22/25 Verified Metabolic Panel 04:00 Magnesium LAB 05/22/25 Verified 04:00 Chest Portable XY 05/22/25 Logged 04:00 Dietary Evaluation Review Comments: 1) If patient remains NPO > 7 days, consider EN/TPN to meet at least 75% of estimated energy needs 2) If GI is preferred, consider Jevity 1.2 @ 35 mL/hr goal rate as tolerated. Flush with 200 mL free H2O Q6H. EN regimen will provide 1008 kcals, 47g Pro, 1478 mL free H2O (including flushes) per 24 hrs. Goal rate will meet ~97% estimated energy needs and 64% estimated protein needs 3) Advanced to regular diet when medically feasible, pending ST approval 4) Follow-up with pulmonology 5) Continue to monitor I&O, labs, and skin integrity Expected Outcomes/Goals: 1) labs to improve 2) patient to receive nutritional support within 7 days of NPO status 3) diet to advance 4) f/u in 2-3 days Date of Service: May 21, 2025 Billing Provider: FAREED KERN MD Common Visit Codes: [id number] CARE 30-74 MIN GILLIAN MUSA RESIDENT May 21, 2025 18:15 FAREED KERN MD May 23, 2025 15:38
[2025-05-21] MEDS: methylPREDNISolone SOD SUCC 40 MG/ML VL IV SCH (23:25)
[2025-05-21] MEDS: DEXMEDETOMIDINE HCL IN D5W 100 ML IV SCH (23:47)
[2025-05-22] VITALS (112 sets, daily range): BP systolic 74–169; BP diastolic 47–103; PULSE 85–137; RESP 14–27; TEMP 97.2–99.5; O2SAT 88–100
[2025-05-22] MEDS: VANCOMYCIN 750MG KIT 100 ML IV SCH (02:28)
[2025-05-22 03:57] LABS: Hematocrit 35.6 % (36.0-46.0); Hemoglobin 11.9 g/dL (12.2-16.2); Mean Corpuscular Hemoglobin 30.3 pg (28.0-32.0); Mean Corpuscular Volume 91.0 fL (80.0-100.0)
[2025-05-22 04:58] LABS: Alanine Aminotransferase 36 U/L (7-40); Albumin 3.1 g/dL (3.2-4.8); Alkaline Phosphatase 71 U/L (46-116); Anion Gap 9 (5-15); BUN/Creatinine Ratio 28.1 (10.0-20.0); Bilirubin, Total 0.4 mg/dL (0.2-1.0); Blood Urea Nitrogen 16 mg/dL (9-23); Calcium 9.4 mg/dL (8.7-10.4); Carbon Dioxide 29 mmol/L (20-31); Chloride 106 mmol/L (98-107); Glucose 236 mg/dL (74-106); Magnesium 2.0 mg/dL (1.6-2.6); Potassium 4.4 mmol/L (3.5-5.1); Sodium 144 mmol/L (136-145); Total Protein 4.6 g/dL (5.7-8.2)
[2025-05-22 05:19] LABS: Total Cells Counted 100.0 (100)
--- NOTE | 2025-05-22 07:45 | DVH ---
INDICATION: RESP FAILURE TECHNIQUE: Single frontal view of the chest was obtained COMPARISON: CT CHEST WITHOUT CONTRAST on DOS: 05/21/25, XY CHEST XRAY 1 VIEW on DOS: 05/21/25, XY CHEST X RAY 1 VIEW on DOS: 05/20/25, XY CHEST PORTABLE on DOS: 05/19/25, XY CHEST PORTABLE on DOS: 05/18/25, XY GISELA ST XRAY 1 VIEW on DOS: 05/21/25 FINDINGS: Lines and Tubes: Endotracheal tube, enteric catheter and right central venous catheter in satisfactor y position. Lungs: Multifocal airspace disease with more focal consolidation in the right lung base. Pleura: No effusion. No pneumothorax. Cardiomediastinal contours: Unremarkable Bones: Unremarkable IMPRESSION: Lines and tubes in satisfactory position. No significant interval change.
[2025-05-22 08:52] LABS: Base Excess 0.8 mmol/L (-2.0-3.0)
[2025-05-22] MEDS: FUROSEMIDE 20 MG/2 ML VIAL IV ONE (09:23)
[2025-05-22] MEDS: PROPOFOL 100 ML IV SCH (10:30)
[2025-05-22] MEDS: ENOXAPARIN SOD 40 MG/0.4 ML SYRINGE SC SCH (10:31)
--- NOTE | 2025-05-22 10:45 | DVH ---
Date: 05/22/2025 09:36 AM Examination: XY KUB ABDOMEN SINGLE VIEW History: HYPOACTIVE BOWEL Comparison: None TECHNIQUE: Frontal views of the abdomen was obtained. FINDINGS: Bowel gas pattern is unremarkable. The lung bases are unremarkable. No acute osseous abnormality identified. IMPRESSION: Nonobstructive bowel gas pattern. Nasogastric tube tip in the stomach
--- NOTE | 2025-05-22 17:50 | DVHPNRES ---
Progress Note Date Seen: May 22, 2025 Resident Creating Document: GILLIAN MUSA RESIDENT Medical Necessity Reason Pt with a Central, PICC or Fol: Yes The following are medically ne: Central Line, Walter Catheter Reason for walter catheter: Strict I&O Subjective Review of Systems This is a 64-year-old female with COPD on 3 L home oxygen, surgical aortic valve replacement 03/2024, myotonic muscle dystrophy, former nicotine dependence, hyperlipidemia, unspecified myeloproliferative disorder who presented to the ER on 05/16 for the evaluation of shortness of breaths. Per son at the bedside, patient recently lost her dog and was very emotional under stress, she started experiencing shortness of breaths for the past day, associated with wheezing, on arrival to the ER patient was saturating 70% on room air, Solu-Medrol, magnesium was given to the patient, venous pCO2 was 119, WBC count 62, she had increased workup breathing and therefore patient was intubated 05/16 at around 11:00 p.m., blood pressure was 70/22 following intubation patient underwent cardiac arrest, CPR was resumed for 10 minutes-2 epis and 2 bicarb pushes were given to the patient. No defibrillation. Following that patient has been on vanc/Zosyn/azithromycin/Solu-Medrol 60 IV b.i.d./Versed/fentanyl/Levophed. Blood cultures preliminary negative, respiratory culture showing phlegm Lantus yeast, Gram-positive cocci, urine culture growing 1 lac Gram-negative rods, CT head was negative, troponin 1200 increasing to 7100, decreasing to 4500. BNP on arrival 809, lactic acidosis. Past medical/surgical history COPD on 3 L home oxygen, surgical aortic valve replacement 03/2024, myotonic muscle dystrophy, former nicotine dependence, hyperlipidemia, unspecified myeloproliferative disorder, hysterectomy, Home medication: Aspirin, prednisolone, atorvastatin , Trelegy inhaler Social history: Quit smoking 6 years back, uses a cane to ambulate. Medical Liaison Dr. 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 Payton 05/19, Patient seen and examined in 112, sedation vacation was completed this morning, patient responded to commands by opening her eyes overnight 100.2 F low-grade fever, blood pressure 87 systolic to 121 systolic, 30% FiO2, urine output 700, prelim EF 20%, cardiology recommends left heart catheterization tomorrow. 05/20-patient seen and examined, chest x-ray shows right lower lobe opacity mixed respiratory acidosis with metabolic alkalosis, left heart catheterization today. WBC increased to twenty-seven, liver ultrasound shows Mildly dilated 7.5 mm common duct. Please correlate with laboratory values and consider MRCP if warranted. LFTs unremarkable. One set of blood culture positive for gram- positive cocci in clusters, patient on vanc. Re 05/21 -hypoactive bowel sounds, systolic murmur over femoral site of catheterization, no bleeding, no erythema, no swelling. Solu-Medrol decreased to 40 mg IV b.i.d., sedation turned off. On Levophed. CT chest without contrast shows 7.1 x 3.8 cm lobulated opacity in the right lower lobe. Bilateral dependent atelectasis, [id number]-left. Large right lower lobe lobulated opacity favored to reflect an infectious / inflammatory etiology. Doubt malignancy given size and no definite right lower lobe pulmonary nodules appreciated on 09/08/2024. Mildly prominent mediastinal nodes favored reactive. Centrilobular emphysema. Left heart catheterization showed Ventriculography in the SINGH projection shows an EF of about 25-30%. There is anterior apical and inferior apical hypokinesis and anterior and inferior mid and basal akinesis. This is an unusual presentation with we will be considered the reverse characteristics of a takotsubo syndrome. Lovenox decreased to 50 mg sc daily. Patient does not take any blood thinners at home. CPAP trial in a.m.. 05/22 - versed was off overnight, pt agitated in AM, versed, fent restarted, radiologist recommending to f/u [facility] on the possible rounded atelectasis, no intervention. cpap tomorrow. On levophed 6 Objective vital signs Vital Sign Date Time Temp Pulse Resp B/P (MAP) Pulse Ox O2 Delivery O2 Flow Rate FiO2 05/22/25 16:45 100 22 125/85 (98) 94 05/22/25 15:42 30 05/22/25 15:41 Mechanical Ventilator+ 05/22/25 15:15 97.2 97.2 Total Intake and Output 05/21/25 05/21/25 05/22/25 15:00 23:00 07:00 Intake Total 391.75 ml 438.75 ml 499.320 ml Output Total 350 ml 250 ml Balance 391.75 ml 88.75 ml 249.320 ml medications Current Medications Medications Dose Ordered Sig/Atilio Route Start Time Stop Time Status Last Admin Dose Admin Midazolam HCl 50 ml @ 1 mls/hr Q24H IV 05/16/25 22:00 05/22/25 14:02 2 MLS/HR Fentanyl Citrate 250 ml @ 2.5 mls/hr Q24H IV 05/16/25 22:00 05/22/25 14:02 15 MLS/HR Vancomycin HCl 0 ml @ 0 mls/hr UD IV 05/16/25 22:30 Famotidine 20 mg Q12HR IV 05/17/25 10:00 05/22/25 07:13 20 MG Diagnostic Test (Pha) 1 strip Q6HR 05/17/25 00:00 05/22/25 17:06 1 STRIP Insulin Human Regular Q6HR SC 05/17/25 00:00 05/22/25 10:39 2 UNITS Dextrose 50 ml UD PRN IV 05/16/25 22:30 Ondansetron HCl 4 mg Q4HP PRN IV 05/16/25 22:30 Nitroglycerin 0.4 mg Q5MINP PRN SL 05/16/25 22:30 Acetaminophen 650 mg Q6HP PRN GT 05/17/25 11:45 05/21/25 09:00 650 MG Ipratropium [place] 0.5 mg Q6HR NEB 05/17/25 12:00 05/22/25 11:40 0.5 MG Budesonide 0.5 mg BID NEB 05/17/25 22:00 05/22/25 06:46 0.5 MG Albuterol 2.5 mg Q6HR NEB 05/17/25 18:00 05/22/25 11:39 2.5 MG Enteral Nutritional Formula 1,000 ml 30ML/HR GT 05/18/25 14:30 Aspirin 81 mg DAILY PO 05/20/25 10:00 05/22/25 07:13 81 MG Ertapenem 1 gm/ Sodium Chloride 50 ml @ 100 mls/hr DAILY@1200 IV 05/20/25 12:00 05/22/25 10:38 100 MLS/HR Lactulose 30 ml BID PO 05/21/25 10:00 05/22/25 07:12 30 ML Vancomycin HCl 100 ml @ 100 mls/hr Q16H IV 05/22/25 01:00 05/22/25 16:06 100 MLS/HR Norepinephrine Bitartrate 250 ml @ 1.875 mls/ hr Q24H IV 05/21/25 11:00 05/22/25 10:32 9.375 MLS/HR Methylprednisolone Sodium Succinate 40 mg BID IV 05/21/25 22:00 05/22/25 07:12 40 MG Enoxaparin Sodium 40 mg DAILY SC 05/22/25 10:00 05/22/25 10:31 40 MG Propofol 100 ml @ 1.566 mls/ hr Q24H IV 05/22/25 10:30 Examination Female patient lying in the bed comfortably, intubated and mechanically ventilated, no acute distress General: Low-grade fever, RASS -4, palor, mucosae are moist Cardiovascular: Tachycardia but Regular S1 and S2. No murmurs, gallops or rubs. No JVD elevation. Trace Pitting pedal edema Respiratory: Decreased breath sounds in the lower lobes, no wheezing heard Abdomen: Soft, nontender, nondistended, normoactive bowel sounds, no rebound tenderness, no organomegaly, no masses Genitourinary: Deferred MSK/skin: Skin is dry and warm Neurological: Pupils are isocoric and reactive. laboratory and microbiology Laboratory Tests 05/22/25 03:15 Test 05/22/25 03:15 Range/Units Serum Glucose 236 H 74-106 mg/dL Microbiology Date/Time Source Procedure Growth Status 05/21/25 14:50 Urine - Walter [place] Urine Culture - Preliminary Resulted 05/20/25 20:05 Blood Blood Culture - Preliminary NO GROWTH AFTER 24 HOURS OF INCUBATION. Resulted 05/17/25 01:30 Nose MRSA Screen - Final Complete 05/16/25 22:02 Sputum Gram Stain - Final Resulted 05/16/25 22:02 Sputum Respiratory Culture - Preliminary Resulted Labs and/or images reviewed: Labs reviewed by me Problem List/Assessment/Plan Problem List/Assessment/Plan NEURO: Chronic vessel ischemic disease Duchenne myotonic dystrophy CT head shows chronic vessel ischemic disease. No acute intracranial abnormality. CARDIOVASCULAR: Status post cardiac arrest Hypotension requiring pressor support NSTEMI likely type 1 Septic Shock secondary to pneumonia Heart failure with reduced ejection fraction Rule out ischemic cardiomyopathy Dyslipidemia Status post surgical aortic valve replacement 2023 Cardiology: Status post left heart catheterization, continue aspirin and atorvastatin Left heart catheterization showed Ventriculography in the SINGH projection shows an EF of about 25-30%. There is anterior apical and inferior apical hypokinesis and anterior and inferior mid and basal akinesis. This is an unusual presentation with we will be considered the reverse characteristics of a takotsubo syndrome. Lovenox decreased to 50 mg sc daily. Patient does not take any blood thinners at home. CPAP trial in a.m.. Echocardiogram pending Aspirin 81 mg daily, atorvastatin 40 mg p.o. HS daily Lovenox 1 mg/kg b.i.d. PULMONARY: Acute on chronic hypoxic respiratory failure status post intubation 05/16 Acute COPD exacerbation Chronic oxygen dependence Possible gram positive/Gram-negative pneumonia Former nicotine dependence 7.1 x 3.8 cm lobulated opacity - rounded atelectasis vs loculated effusion Continue IV vancomycin, IV ertapenem, Solu-Medrol 60 b.i.d. Ipratropium, albuterol, budesonide nebulized treatments Zosyn switched to IV ertapenem 05/19 CT chest without contrast shows 7.1 x 3.8 cm lobulated opacity in the right lower lobe. Bilateral dependent atelectasis, [id number]-udnm-left. Large right lower lobe lobulated opacity favored to reflect an infectious / inflammatory etiology. Doubt malignancy given size and no definite right lower lobe pulmonary nodules appreciated on 09/08/2024. Mildly prominent mediastinal nodes favored reactive. Centrilobular emphysema. GASTROINTESTINAL: Transaminitis Ultrasound pending GENITOURINARY: Complicated Klebsiella ESBL cystitis History of ESBL UTI IV ertapenem HEMATOLOGY: Unspecified myeloproliferative disorder Leukocytosis Thrombocytosis CBC daily METABOLIC: ? Euthyroid sick syndrome Monitor INFECTIOUS DISEASE: Septic shock likely due to pneumonia ESBL UTI Zosyn switched to IV ertapenem 05/19 DIET: Tube feedings DVT prophylax: 1 mg/kg twice daily GI prophylaxis: Famotidine 20 twice daily Bowel regimen: Lactulose bid Code status: Full code LINES/DRAINS/ACCESS: IV access: Right IJ CVC 05/17 Drips: Versed fentanyl Levophed Walter catheter: 05/16 DISPOSITION: ICU Patient's status discussed with patient's son and daughter at bedside Critical care time spent more than 57 minutes, including patient care, chart review, and updating the family. Excluding any procedures Case discussed with Dr. Jalen Plan discussed with: Spouse, Son (at bedside) My Orders My Orders Orders - GILLIAN MUSA Procedure Category Date Status Time Abg W/ Co-Ox RT 05/22/25 Logged 04:00 Enoxaparin Sodium PHA 05/22/25 In Process (Lovenox) 10:00 Kub Abdomen Single XY 05/22/25 Resulted View 08:41 Propofol (Diprivan) PHA 05/22/25 In Process 10:30 Comprehensive LAB 05/23/25 Verified Metabolic Panel 04:00 Magnesium LAB 05/23/25 Verified 04:00 Abg W/ Co-Ox RT 05/23/25 Logged 04:00 Chest Portable XY 05/23/25 Logged 04:00 Dietary Evaluation Review Comments: 1) If patient remains NPO > 7 days, consider EN/TPN to meet at least 75% of estimated energy needs 2) If GI is preferred, consider Jevity 1.2 @ 35 mL/hr goal rate as tolerated. Flush with 200 mL free H2O Q6H. EN regimen will provide 1008 kcals, 47g Pro, 1478 mL free H2O (including flushes) per 24 hrs. Goal rate will meet ~97% estimated energy needs and 64% estimated protein needs 3) Advanced to regular diet when medically feasible, pending ST approval 4) Follow-up with pulmonology 5) Continue to monitor I&O, labs, and skin integrity Expected Outcomes/Goals: 1) labs to improve 2) patient to receive nutritional support within 7 days of NPO status 3) diet to advance 4) f/u in 2-3 days GILLIAN MUSA May 22, 2025 17:50
--- NOTE | 2025-05-22 20:27 | DVHPN2 ---
Progress Note - Dictate Date Seen: May 22, 2025 Medical Necessity Reason Pt with a Central, PICC or Fol: Yes The following are medically ne: Central Line, Walter Catheter Reason for walter catheter: Strict I&O Subjective Ms. Bauman is a 64 years old right-handed female with a history of dyslipidemia, asthma, aortic stenosis, COPD, myeloproliferative disorder, myotonic muscular dystrophy, the patient was taken to the hospital with a chief complaint of shortness of breath, I have seen and examined the patient, I have talked to her nurse, family in the room, she is responsive to painful stimuli He had tachycardia, tried to pull the lines when she is off sedation Levo 5 mcg/minute, Versed 2 mg/hour, fentanyl 150 mcg/hour. CBC, 05/16/2021: Respiratory acidosis, 05/17/2025: Respiratory acidosis, 05/18/25: Hypoxia, carbon dioxide retention WBC/HB/PLT/MCV, 05/16/2025: 62.5/15. 4/640/94.2, 05/17/2025: 72.6/16.1/520/91.2, 05/18/2025: 25.1/13.3/248/90.4 BUN/CR, 05/17/2025: 15/0.56 GFR, 05/17/2025: 103 Lactic acid, 05/16/25: 5.3 HGB A1c, 05/16/2025: 4.2 Troponin one high sensitivity, 05/16/2025: 1209, 2081, 4211, 05/18/2025: 7100 TBI/AST/ALT/AP, 05/17/2025: 1.8/86/25/183 TG/HDL/LDL/HDL, 05/18/2025: 198/116/54/34 KUB, 05/22/2025: Nonobstructive bowel gas pattern. Nasogastric tube tip in the stomach CT head, 05/17/2025: 1. No acute intracranial abnormality. 2. Chronic sequelae of microvascular disease CT head, 05/18/2025: No acute intracranial abnormality seen. Advanced chronic small vessel ischemic eubanks CT chest, 05/21/2025: 1. Large right lower lobe lobulated opacity favored to reflect an infectious / inflammatory etiology. Doubt malignancy given size and no definite right lower lobe pulmonary nodules appreciated on 09/08/2024. 2. Mildly prominent mediastinal nodes favored reactive. 3. Centrilobular emphysema. vital signs Vital Sign Date Time Temp Pulse Resp B/P (MAP) Pulse Ox O2 Delivery O2 Flow Rate FiO2 05/22/25 20:00 136/87 05/22/25 18:30 111 20 95 05/22/25 18:03 30 05/22/25 18:02 Mechanical Ventilator+ 05/22/25 15:15 97.2 97.2 Total Intake and Output 05/21/25 05/21/25 05/22/25 15:00 23:00 07:00 Intake Total 391.75 ml 438.75 ml 499.320 ml Output Total 350 ml 250 ml Balance 391.75 ml 88.75 ml 249.320 ml medications Current Medications Medications Dose Ordered Sig/Atilio Route Start Time Stop Time Status Last Admin Dose Admin Midazolam HCl 50 ml @ 1 mls/hr Q24H IV 05/16/25 22:00 05/22/25 14:02 2 MLS/HR Fentanyl Citrate 250 ml @ 2.5 mls/hr Q24H IV 05/16/25 22:00 05/22/25 14:02 15 MLS/HR Vancomycin HCl 0 ml @ 0 mls/hr UD IV 05/16/25 22:30 Famotidine 20 mg Q12HR IV 05/17/25 10:00 05/22/25 07:13 20 MG Diagnostic Test (Pha) 1 strip Q6HR 05/17/25 00:00 05/22/25 17:06 1 STRIP Insulin Human Regular Q6HR SC 05/17/25 00:00 05/22/25 10:39 2 UNITS Dextrose 50 ml UD PRN IV 05/16/25 22:30 Ondansetron HCl 4 mg Q4HP PRN IV 05/16/25 22:30 Nitroglycerin 0.4 mg Q5MINP PRN SL 05/16/25 22:30 Acetaminophen 650 mg Q6HP PRN GT 05/17/25 11:45 05/21/25 09:00 650 MG Ipratropium [place] 0.5 mg Q6HR NEB 05/17/25 12:00 05/22/25 18:31 0.5 MG Budesonide 0.5 mg BID NEB 05/17/25 22:00 05/22/25 18:31 0.5 MG Albuterol 2.5 mg Q6HR NEB 05/17/25 18:00 05/22/25 18:31 2.5 MG Enteral Nutritional Formula 1,000 ml 30ML/HR GT 05/18/25 14:30 Aspirin 81 mg DAILY PO 05/20/25 10:00 05/22/25 07:13 81 MG Ertapenem 1 gm/ Sodium Chloride 50 ml @ 100 mls/hr DAILY@1200 IV 05/20/25 12:00 05/22/25 10:38 100 MLS/HR Lactulose 30 ml BID PO 05/21/25 10:00 05/22/25 07:12 30 ML Vancomycin HCl 100 ml @ 100 mls/hr Q16H IV 05/22/25 01:00 05/22/25 16:06 100 MLS/HR Norepinephrine Bitartrate 250 ml @ 1.875 mls/ hr Q24H IV 05/21/25 11:00 05/22/25 10:32 9.375 MLS/HR Methylprednisolone Sodium Succinate 40 mg BID IV 05/21/25 22:00 05/22/25 07:12 40 MG Enoxaparin Sodium 40 mg DAILY SC 05/22/25 10:00 05/22/25 10:31 40 MG Propofol 100 ml @ 1.566 mls/ hr Q24H IV 05/22/25 10:30 objective The patient is well-nourished and well-developed with no distress. The patient is intubated MENTAL STATUS: Subjective CRANIAL NERVES: Pupils are round and nonreactive, very small, not sure if the right side is bigger. There are corneal reflexes and doll's eyes phenomenon. No signs of facial weakness. There are gagging or coughing reflexes SENSATION: Responses to pain stimuli. MOTOR: Normal tone in the upper and lower extremity. Normal muscle bulk. No fasciculations. No spontaneous movement. REFLEXES: Deep tendon reflexes are symmetrical. Upgoing toes in both feet. CEREBELLAR/COORDINATION: Deferred GAIT/STATION: deferred. laboratory and microbiology Laboratory Tests 05/22/25 03:15 Test 05/22/25 03:15 Range/Units Serum Glucose 236 H 74-106 mg/dL Problem List Cardiopulmonary arrest Coma Metabolic encephalopathy Hypoxic encephalopathy Toxic encephalopathy Acute respiratory failure Chronic respiratory failure/COPD on home oxygen Elevated troponin I high sensitivity/heart attack Myeloproliferative disorder Assessment/Plan Monitoring Supportive treatment ICU care Follow up labs Stabilize vitals/pressor drip Respiratory support/vent management Oxygen IV antibiotics Lovenox 40 mg subQ daily Aspirin 81 mg daily Lipitor 40 mg daily GI prophylaxis/famotidine More recommendation per clinical course This medical document was created using an electronic medical record system with [employer] dictation system. Although this document has been carefully reviewed, there may still be some phonetic and typographical errors. These areas are purely typographical due to imperfections of the software programs, and do not reflect any compromise in the patient's medical care Prognosis Guarded Dietary Evaluation Review Comments: 1) If patient remains NPO > 7 days, consider EN/TPN to meet at least 75% of estimated energy needs 2) If GI is preferred, consider Jevity 1.2 @ 35 mL/hr goal rate as tolerated. Flush with 200 mL free H2O Q6H. EN regimen will provide 1008 kcals, 47g Pro, 1478 mL free H2O (including flushes) per 24 hrs. Goal rate will meet ~97% estimated energy needs and 64% estimated protein needs 3) Advanced to regular diet when medically feasible, pending ST approval 4) Follow-up with pulmonology 5) Continue to monitor I&O, labs, and skin integrity Expected Outcomes/Goals: 1) labs to improve 2) patient to receive nutritional support within 7 days of NPO status 3) diet to advance 4) f/u in 2-3 days Plan discussed with: Other FÉLIX MCDOWELL MD May 22, 2025 20:27
[2025-05-22] MEDS ORDERED: MAGNESIUM SULFATE 1GM/100ML 100 ML IV ONE (21:30)
[2025-05-23] VITALS (112 sets, daily range): BP systolic 75–135; BP diastolic 49–90; PULSE 83–126; RESP 13–33; TEMP 98–99.1; O2SAT 91–100
[2025-05-23 04:48] LABS: Mean Corpuscular Hemoglobin 30.0 pg (28.0-32.0)
[2025-05-23 04:52] LABS: Alanine Aminotransferase 34 U/L (7-40); Alkaline Phosphatase 72 U/L (46-116); Anion Gap 9 (5-15); BUN/Creatinine Ratio 31.9 (10.0-20.0); Blood Urea Nitrogen 15 mg/dL (9-23); Calcium 9.3 mg/dL (8.7-10.4); Chloride 104 mmol/L (98-107); Magnesium 1.9 mg/dL (1.6-2.6); Potassium 4.4 mmol/L (3.5-5.1); Sodium 145 mmol/L (136-145)
[2025-05-23 04:53] LABS: Albumin 3.2 g/dL (3.2-4.8)
[2025-05-23 04:54] LABS: Bilirubin, Total 0.6 mg/dL (0.2-1.0)
[2025-05-23 04:55] LABS: Hematocrit 36.8 % (36.0-46.0); Hemoglobin 12.3 g/dL (12.2-16.2); Mean Corpuscular Volume 90.1 fL (80.0-100.0)
[2025-05-23 05:06] LABS: Carbon Dioxide 32 mmol/L (20-31); Glucose 186 mg/dL (74-106); Total Protein 4.8 g/dL (5.7-8.2)
--- NOTE | 2025-05-23 06:10 | DVH ---
CHEST RADIOGRAPH Indication: INTUBATED Technique: Single frontal view of the chest was obtained COMPARISON: XY CHEST PORTABLE on DOS: 05/22/25, CT CHEST WITHOUT CONTRAST on DOS: 05/21/25, XY CHEST XRAY 1 VIEW on DOS: 05/21/25, XY CHEST XRAY 1 VIEW on DOS: 05/20/25, XY CHEST PORTABLE on DOS: 05/19/25 FINDINGS: Lines and Tubes: Unchanged. Lungs: Stable chronic appearing bilateral interstitial pulmonary markings. No evidence of focal cons olidation. Pleura: No effusion. No pneumothorax. Cardiomediastinal contours: Unremarkable Bones: Unremarkable IMPRESSION: 1. No acute cardiopulmonary process. Stable chronic appearing bilateral interstitial pulmonary markin gs. 2. Lines and tubes unchanged.
[2025-05-23 06:48] LABS: Total Cells Counted 100.0 (100)
[2025-05-23 08:19] LABS: Base Excess 5.9 mmol/L (-2.0-3.0)
[2025-05-23 11:56] LABS: Base Excess 6.9 mmol/L (-2.0-3.0)
--- NOTE | 2025-05-23 14:03 | DVHPN2 ---
Progress Note - Dictate Date Seen: May 23, 2025 Medical Necessity Reason Pt with a Central, PICC or Fol: Yes The following are medically ne: Central Line, Walter Catheter Reason for walter catheter: Strict I&O vital signs Vital Sign Date Time Temp Pulse Resp B/P (MAP) Pulse Ox O2 Delivery O2 Flow Rate FiO2 05/23/25 13:49 30 05/23/25 13:48 22 95 Mechanical Ventilator+ 05/23/25 13:45 118 119/72 (88) 05/23/25 12:00 98.0 98.0 Total Intake and Output 05/22/25 05/22/25 05/23/25 15:00 23:00 07:00 Intake Total 268.750 ml 416.845 ml 337.785 ml Output Total 650 ml 750 ml Balance 268.750 ml -233.155 ml -412.215 ml medications Current Medications Medications Dose Ordered Sig/Atilio Route Start Time Stop Time Status Last Admin Dose Admin Midazolam HCl 50 ml @ 1 mls/hr Q24H IV 05/16/25 22:00 05/22/25 14:02 2 MLS/HR Fentanyl Citrate 250 ml @ 2.5 mls/hr Q24H IV 05/16/25 22:00 05/23/25 05:44 12.5 MLS/HR Vancomycin HCl 0 ml @ 0 mls/hr UD IV 05/16/25 22:30 Famotidine 20 mg Q12HR IV 05/17/25 10:00 05/23/25 07:33 20 MG Diagnostic Test (Pha) 1 strip Q6HR 05/17/25 00:00 05/23/25 10:50 1 STRIP Insulin Human Regular Q6HR SC 05/17/25 00:00 05/23/25 12:01 3 UNITS Dextrose 50 ml UD PRN IV 05/16/25 22:30 Ondansetron HCl 4 mg Q4HP PRN IV 05/16/25 22:30 Nitroglycerin 0.4 mg Q5MINP PRN SL 05/16/25 22:30 Acetaminophen 650 mg Q6HP PRN GT 05/17/25 11:45 05/21/25 09:00 650 MG Ipratropium [place] 0.5 mg Q6HR NEB 05/17/25 12:00 05/23/25 13:06 0.5 MG Budesonide 0.5 mg BID NEB 05/17/25 22:00 05/23/25 13:06 0.5 MG Albuterol 2.5 mg Q6HR NEB 05/17/25 18:00 05/23/25 13:06 2.5 MG Enteral Nutritional Formula 1,000 ml 30ML/HR GT 05/18/25 14:30 Aspirin 81 mg DAILY PO 05/20/25 10:00 05/23/25 07:32 81 MG Ertapenem 1 gm/ Sodium Chloride 50 ml @ 100 mls/hr DAILY@1200 IV 05/20/25 12:00 05/23/25 11:53 100 MLS/HR Lactulose 30 ml BID PO 05/21/25 10:00 05/22/25 07:12 30 ML Vancomycin HCl 100 ml @ 100 mls/hr Q16H IV 05/22/25 01:00 05/23/25 09:00 100 MLS/HR Norepinephrine Bitartrate 250 ml @ 1.875 mls/ hr Q24H IV 05/21/25 11:00 05/23/25 10:50 7.5 MLS/HR Methylprednisolone Sodium Succinate 40 mg BID IV 05/21/25 22:00 05/23/25 07:33 40 MG Enoxaparin Sodium 40 mg DAILY SC 05/22/25 10:00 05/23/25 07:33 40 MG Propofol 100 ml @ 1.566 mls/ hr Q24H IV 05/22/25 10:30 laboratory and microbiology Laboratory Tests 05/23/25 03:36 Test 05/23/25 03:36 Range/Units Serum Glucose 186 H 74-106 mg/dL Assessment/Plan Covering for Dr. Castañeda Impression Acute hypoxemic respiratory failure Acute COPD exacerbation Right lung mass Emphysema Patient seen and examined in ICU Events On mechanical ventilation S/p intubation Tolerating CPAP 04/21 Awake, following commands Labs and imaging reviewed ABG reviewed Management Vent support Titrate to maintain sats 90% or above Daily sedation holiday If patient follows commands, proceed to weaning trial Pressure support 03/21, extubate when ready Antibiotics Bronchodilators Continue steroids Monitor renal function Monitor electrolytes Supplement as needed Pressors as needed for hemodynamic support To maintain a mean arterial pressure of 65 mmHg DVT prophylaxis Critical care time 35 minutes Dietary Evaluation Review Comments: 1) If patient remains NPO > 7 days, consider EN/TPN to meet at least 75% of estimated energy needs 2) If GI is preferred, consider Jevity 1.2 @ 35 mL/hr goal rate as tolerated. Flush with 200 mL free H2O Q6H. EN regimen will provide 1008 kcals, 47g Pro, 1478 mL free H2O (including flushes) per 24 hrs. Goal rate will meet ~97% estimated energy needs and 64% estimated protein needs 3) Advanced to regular diet when medically feasible, pending ST approval 4) Follow-up with pulmonology 5) Continue to monitor I&O, labs, and skin integrity Expected Outcomes/Goals: 1) labs to improve 2) patient to receive nutritional support within 7 days of NPO status 3) diet to advance 4) f/u in 2-3 days Plan discussed with: Other (Rn) MARNIE TSAI MD May 23, 2025 14:03
--- NOTE | 2025-05-23 15:31 | DVHPN2 ---
Subjective The patient seen and examined at bedside. Remained intubate. Reviewed: Care Plan Changes from previous H/P or p: No Changes General: Per HPI Eyes: No Pain, No Vision change, No Conjunctivae inflammation, No Eyelid inflammation, No Other, No Redness ENT: No Ear pain, No Ear discharge, No Nose pain, No Nose discharge, No Nose congestion, No Mouth pain, No Mouth swelling, No Throat pain, No Throat swelling, No Other Cardiovascular: No Chest Pain, No Palpitations, No Orthopnea, No Paroxysmal Noc. Dyspnea, No Edema, No Lt Headedness, No Other Respiratory: No Cough, No Dry; Shortness of breath, SOB with excertion, W heezing; No Hemoptysis, No Pleuritic Pain, No Sputum; Other (SOB at rest) Gastrointestinal: No Nausea, No Vomiting, No Abdominal Pain, No Diarrhea, No Constipation, No Melena, No Hematochezia, No Other Genitourinary: No Dysuria, No Frequency, No Incontinence, No Hematuria, No Retention, No Other Musculoskeletal: No other, No neck pain, No shoulder pain, No arm pain, No back pain, No hand pain, No leg pain, No foot pain Skin: No Rash, No Lesions, No Jaundice, No Bruising, No Other Objective Vitals Vital Signs Date Time Temp Pulse Resp B/P (MAP) Pulse Ox O2 Delivery O2 Flow Rate FiO2 05/23/25 15:15 98.0 111 22 106/71 (83) 94 98.0 05/23/25 13:49 30 05/23/25 13:48 Mechanical Ventilator+ Intake/Output Intake and Output 05/23/25 07:00 Intake Total 1023.380 ml Output Total 1400 ml Balance -376.620 ml Intake Oral 230 ml IV Total 793.380 ml Output Urine Total 1400 ml # Bowel Movements 1 General Appearance: Other (Intubated, on vent) HEENT: Atraumatic Neck: Supple Cardiovascular: Regular rate, Normal S1, Normal S2, No murmurs, Gallops, Rubs Abdomen: No Normal bowel sounds; Soft, No tenderness Medications Current Medications Medications Dose Ordered Sig/Atilio Route Start Time Stop Time Status Last Admin Dose Admin Midazolam HCl 50 ml @ 1 mls/hr Q24H IV 05/16/25 22:00 05/22/25 14:02 2 MLS/HR Fentanyl Citrate 250 ml @ 2.5 mls/hr Q24H IV 05/16/25 22:00 05/23/25 05:44 12.5 MLS/HR Vancomycin HCl 0 ml @ 0 mls/hr UD IV 05/16/25 22:30 Famotidine 20 mg Q12HR IV 05/17/25 10:00 05/23/25 07:33 20 MG Diagnostic Test (Pha) 1 strip Q6HR 05/17/25 00:00 05/23/25 10:50 1 STRIP Insulin Human Regular Q6HR SC 05/17/25 00:00 05/23/25 12:01 3 UNITS Dextrose 50 ml UD PRN IV 05/16/25 22:30 Ondansetron HCl 4 mg Q4HP PRN IV 05/16/25 22:30 Nitroglycerin 0.4 mg Q5MINP PRN SL 05/16/25 22:30 Acetaminophen 650 mg Q6HP PRN GT 05/17/25 11:45 05/21/25 09:00 650 MG Ipratropium [place] 0.5 mg Q6HR NEB 05/17/25 12:00 05/23/25 13:06 0.5 MG Budesonide 0.5 mg BID NEB 05/17/25 22:00 05/23/25 13:06 0.5 MG Albuterol 2.5 mg Q6HR NEB 05/17/25 18:00 05/23/25 13:06 2.5 MG Enteral Nutritional Formula 1,000 ml 30ML/HR GT 05/18/25 14:30 Aspirin 81 mg DAILY PO 05/20/25 10:00 05/23/25 07:32 81 MG Ertapenem 1 gm/ Sodium Chloride 50 ml @ 100 mls/hr DAILY@1200 IV 05/20/25 12:00 05/23/25 11:53 100 MLS/HR Lactulose 30 ml BID PO 05/21/25 10:00 05/22/25 07:12 30 ML Vancomycin HCl 100 ml @ 100 mls/hr Q16H IV 05/22/25 01:00 05/23/25 09:00 100 MLS/HR Norepinephrine Bitartrate 250 ml @ 1.875 mls/ hr Q24H IV 05/21/25 11:00 05/23/25 10:50 7.5 MLS/HR Methylprednisolone Sodium Succinate 40 mg BID IV 05/21/25 22:00 05/23/25 07:33 40 MG Enoxaparin Sodium 40 mg DAILY SC 05/22/25 10:00 05/23/25 07:33 40 MG Propofol 100 ml @ 1.566 mls/ hr Q24H IV 05/22/25 10:30 Laboratory Results Laboratory Tests 05/23/25 03:36 Chemistry Test 05/23/25 03:36 Albumin 3.2 g/dL (3.2-4.8) Calcium Level 9.3 mg/dL (8.7-10.4) Magnesium Level 1.9 mg/dL (1.6-2.6) Total Protein 4.8 g/dL (5.7-8.2) L LFT Test 05/23/25 03:36 Alanine Aminotransferase (ALT) 34 U/L (7-40) Alkaline Phosphatase 72 U/L (46-116) Aspartate Amino Transferase (AST) 22 U/L (13-40) Total Bilirubin 0.6 mg/dL (0.2-1.0) Urinalysis Test 05/17/25 23:40 Urine Color Yellow (Yellow) Urine Clarity Ex.turbid (Clear) Urine pH 5.5 (5.0-9.0) Urine Specific [place] 1.023 (1.001-1.035) Urine Protein Trace (Negative) H Urine Ketones Trace (Negative) Urine Blood Trace /uL (Negative) H Urine Nitrite Negative (Negative) Urine Bilirubin Negative (Negative) Urine Urobilinogen Normal mg/dL (Negative) Urine Leukocyte Esterase Negative /uL (Negative) Urine RBC 20 /hpf (0 - 4) Urine Microscopic WBC 6 /HPF (0-5) H Urine Squamous Epithelial Cells Few /hpf (<5) Urine Uric Acid Crystals Mod /hpf (None Seen) Urine Amorphous Crystals Few /hpf (None Seen) Urine Bacteria None seen /hpf (None Seen) Urine Granular Casts Few /lpf (0) Urine Glucose Normal mg/dL (Normal) Blood Gas Results Test 05/23/25 07:54 05/23/25 11:48 Arterial Blood pH 7.434 (7.350-7.450) 7.461 (7.350-7.450) FiO2 % 30.0 30.0 Microbiology Microbiology Date/Time Source Procedure Growth Status 05/21/25 14:50 Urine - [place] Urine Culture - Preliminary Resulted 05/20/25 20:05 Blood Blood Culture - Preliminary NO GROWTH AFTER 48 HOURS OF INCUBATION. Resulted 05/17/25 01:30 Nose MRSA Screen - Final Complete 05/16/25 22:02 Sputum Gram Stain - Final Resulted 05/16/25 22:02 Sputum Respiratory Culture - Preliminary Resulted Labs and/or images reviewed: Labs reviewed by me Assessment/Plan Assessment/Plan NEURO: Chronic vessel ischemic disease Duchenne myotonic dystrophy CT head shows chronic vessel ischemic disease. No acute intracranial abnormality. CARDIOVASCULAR: Status post cardiac arrest Hypotension requiring pressor support NSTEMI likely type 1 Septic Shock secondary to pneumonia Heart failure with reduced ejection fraction Rule out ischemic cardiomyopathy Dyslipidemia Status post surgical aortic valve replacement 2023 Cardiology: Status post left heart catheterization, continue aspirin and atorvastatin Left heart catheterization showed Ventriculography in the SINGH projection shows an EF of about 25-30%. There is anterior apical and inferior apical hypokinesis and anterior and inferior mid and basal akinesis. This is an unusual presentation with we will be considered the reverse characteristics of a takotsubo syndrome. Lovenox decreased to 50 mg sc daily. Patient does not take any blood thinners at home. CPAP trial in a.m.. Echocardiogram pending Aspirin 81 mg daily, atorvastatin 40 mg p.o. HS daily Lovenox 1 mg/kg b.i.d. PULMONARY: Acute on chronic hypoxic respiratory failure status post intubation 05/16 Acute COPD exacerbation Chronic oxygen dependence Possible gram positive/Gram-negative pneumonia Former nicotine dependence 7.1 x 3.8 cm lobulated opacity - rounded atelectasis vs loculated effusion Continue IV vancomycin, IV ertapenem, Solu-Medrol 60 b.i.d. Ipratropium, albuterol, budesonide nebulized treatments Zosyn switched to IV ertapenem 05/19 CT chest without contrast shows 7.1 x 3.8 cm lobulated opacity in the right lower lobe. Bilateral dependent atelectasis, tixua-[id number]-laym-left. Large right lower lobe lobulated opacity favored to reflect an infectious / inflammatory etiology. Doubt malignancy given size and no definite right lower lobe pulmonary nodules appreciated on 09/08/2024. Mildly prominent mediastinal nodes favored reactive. Centrilobular emphysema. GASTROINTESTINAL: Transaminitis Ultrasound pending GENITOURINARY: Complicated Klebsiella ESBL cystitis History of ESBL UTI IV ertapenem HEMATOLOGY: Unspecified myeloproliferative disorder Leukocytosis Thrombocytosis CBC daily METABOLIC: ? Euthyroid sick syndrome Monitor INFECTIOUS DISEASE: Septic shock likely due to pneumonia ESBL UTI Zosyn switched to IV ertapenem 05/19 DIET: Tube feedings DVT prophylax: 1 mg/kg twice daily GI prophylaxis: Famotidine 20 twice daily Bowel regimen: Lactulose bid Code status: Full code LINES/DRAINS/ACCESS: IV access: Right IJ CVC 05/17 Drips: Versed fentanyl Levophed Anaya catheter: 05/16 DISPOSITION: ICU Critical care time spent more than 38 minutes, including patient care, chart review, and updating the family. Excluding any procedures Plan discussed with: Other (Rn) Date of Service: May 23, 2025 Billing Provider: NEVIN HOPSON MD Common Visit Codes: [id number] INP/OBS CARE(HIGH) NEVIN HOPSON MD May 23, 2025 15:31
--- NOTE | 2025-05-23 19:50 | DVHPN2 ---
Progress Note - Dictate Date Seen: May 23, 2025 Medical Necessity Reason Pt with a Central, PICC or Fol: Yes The following are medically ne: Central Line, Walter Catheter Reason for walter catheter: Strict I&O Subjective Ms. Bauman is a 64 years old right-handed female with a history of dyslipidemia, asthma, aortic stenosis, COPD, myeloproliferative disorder, myotonic muscular dystrophy, the patient was taken to the hospital with a chief complaint of shortness of breath, I have seen and examined the patient, I have talked to her nurse, eyes are open, she maybe able to follow verbal commands a little bit, she moves the arms, but not the legs Family: followed verbal commands Levo 5 mcg/minute, Versed 2 mg/hour, fentanyl 100 mcg/hour. CBC, 05/16/2021: Respiratory acidosis, 05/17/2025: Respiratory acidosis, 05/18/25: Hypoxia, carbon dioxide retention WBC/HB/PLT/MCV, 05/16/2025: 62.5/15. 4/640/94.2, 05/17/2025: 72.6/16.1/520/91.2, 05/18/2025: 25.1/13.3/248/90.4 BUN/CR, 05/17/2025: 15/0.56 GFR, 05/17/2025: 103 Lactic acid, 05/16/25: 5.3 HGB A1c, 05/16/2025: 4.2 Troponin one high sensitivity, 05/16/2025: 1209, 2081, 4211, 05/18/2025: 7100 TBI/AST/ALT/AP, 05/17/2025: 1.8/86/25/183 TG/HDL/LDL/HDL, 05/18/2025: 198/116/54/34 KUB, 05/22/2025: Nonobstructive bowel gas pattern. Nasogastric tube tip in the stomach CT head, 05/17/2025: 1. No acute intracranial abnormality. 2. Chronic sequelae of microvascular disease CT head, 05/18/2025: No acute intracranial abnormality seen. Advanced chronic small vessel ischemic eubanks CT chest, 05/21/2025: 1. Large right lower lobe lobulated opacity favored to reflect an infectious / inflammatory etiology. Doubt malignancy given size and no definite right lower lobe pulmonary nodules appreciated on 09/08/2024. 2. Mildly prominent mediastinal nodes favored reactive. 3. Centrilobular emphysema. vital signs Vital Sign Date Time Temp Pulse Resp B/P (MAP) Pulse Ox O2 Delivery O2 Flow Rate FiO2 05/23/25 18:30 101 22 116/74 (88) 97 05/23/25 18:14 30 05/23/25 17:42 Mechanical Ventilator+ 05/23/25 16:00 98.0 98.0 Total Intake and Output 05/22/25 05/22/25 05/23/25 15:00 23:00 07:00 Intake Total 268.750 ml 416.845 ml 337.785 ml Output Total 650 ml 750 ml Balance 268.750 ml -233.155 ml -412.215 ml medications Current Medications Medications Dose Ordered Sig/Atilio Route Start Time Stop Time Status Last Admin Dose Admin Midazolam HCl 50 ml @ 1 mls/hr Q24H IV 05/16/25 22:00 05/22/25 14:02 2 MLS/HR Fentanyl Citrate 250 ml @ 2.5 mls/hr Q24H IV 05/16/25 22:00 05/23/25 05:44 12.5 MLS/HR Vancomycin HCl 0 ml @ 0 mls/hr UD IV 05/16/25 22:30 Famotidine 20 mg Q12HR IV 05/17/25 10:00 05/23/25 07:33 20 MG Diagnostic Test (Pha) 1 strip Q6HR 05/17/25 00:00 05/23/25 16:33 1 STRIP Insulin Human Regular Q6HR SC 05/17/25 00:00 05/23/25 12:01 3 UNITS Dextrose 50 ml UD PRN IV 05/16/25 22:30 Ondansetron HCl 4 mg Q4HP PRN IV 05/16/25 22:30 Nitroglycerin 0.4 mg Q5MINP PRN SL 05/16/25 22:30 Acetaminophen 650 mg Q6HP PRN GT 05/17/25 11:45 05/21/25 09:00 650 MG Ipratropium [place] 0.5 mg Q6HR NEB 05/17/25 12:00 05/23/25 18:14 0.5 MG Budesonide 0.5 mg BID NEB 05/17/25 22:00 9/6/25 18:14 0.5 MG Albuterol 2.5 mg Q6HR NEB 05/17/25 18:00 05/23/25 18:14 2.5 MG Enteral Nutritional Formula 1,000 ml 30ML/HR GT 05/18/25 14:30 Aspirin 81 mg DAILY PO 05/20/25 10:00 05/23/25 07:32 81 MG Ertapenem 1 gm/ Sodium Chloride 50 ml @ 100 mls/hr DAILY@1200 IV 05/20/25 12:00 05/23/25 11:53 100 MLS/HR Lactulose 30 ml BID PO 05/21/25 10:00 05/22/25 07:12 30 ML Vancomycin HCl 100 ml @ 100 mls/hr Q16H IV 05/22/25 01:00 05/23/25 09:00 100 MLS/HR Norepinephrine Bitartrate 250 ml @ 1.875 mls/ hr Q24H IV 05/21/25 11:00 05/23/25 10:50 7.5 MLS/HR Methylprednisolone Sodium Succinate 40 mg BID IV 05/21/25 22:00 05/23/25 07:33 40 MG Enoxaparin Sodium 40 mg DAILY SC 05/22/25 10:00 05/23/25 07:33 40 MG Propofol 100 ml @ 1.566 mls/ hr Q24H IV 05/22/25 10:30 objective The patient is well-nourished and well-developed with no distress. The patient is intubated MENTAL STATUS: Subjective CRANIAL NERVES: Pupils are round and nonreactive, very small, not sure if the right side is bigger. There are corneal reflexes and doll's eyes phenomenon. No signs of facial weakness. There are gagging or coughing reflexes SENSATION: Responses to pain stimuli. MOTOR: Normal tone in the upper and lower extremity. Normal muscle bulk. No fasciculations. No spontaneous movement. REFLEXES: Deep tendon reflexes are symmetrical. Upgoing toes in both feet. CEREBELLAR/COORDINATION: Deferred GAIT/STATION: deferred. laboratory and microbiology Laboratory Tests 05/23/25 03:36 Test 05/23/25 03:36 Range/Units Serum Glucose 186 H 74-106 mg/dL Problem List Cardiopulmonary arrest Coma Metabolic encephalopathy Hypoxic encephalopathy Toxic encephalopathy Acute respiratory failure Chronic respiratory failure/COPD on home oxygen Elevated troponin I high sensitivity/heart attack Myeloproliferative disorder Assessment/Plan Monitoring Supportive treatment ICU care Follow up labs Stabilize vitals/pressor drip Respiratory support/vent management Oxygen IV antibiotics Lovenox 40 mg subQ daily Aspirin 81 mg daily Lipitor 40 mg daily GI prophylaxis/famotidine More recommendation per clinical course This medical document was created using an electronic medical record system with [employer] dictation system. Although this document has been carefully reviewed, there may still be some phonetic and typographical errors. These areas are purely typographical due to imperfections of the software programs, and do not reflect any compromise in the patient's medical care Prognosis Guarded Dietary Evaluation Review Comments: 1) If patient remains NPO > 7 days, consider EN/TPN to meet at least 75% of estimated energy needs 2) If GI is preferred, consider Jevity 1.2 @ 35 mL/hr goal rate as tolerated. Flush with 200 mL free H2O Q6H. EN regimen will provide 1008 kcals, 47g Pro, 1478 mL free H2O (including flushes) per 24 hrs. Goal rate will meet ~97% estimated energy needs and 64% estimated protein needs 3) Advanced to regular diet when medically feasible, pending ST approval 4) Follow-up with pulmonology 5) Continue to monitor I&O, labs, and skin integrity Expected Outcomes/Goals: 1) labs to improve 2) patient to receive nutritional support within 7 days of NPO status 3) diet to advance 4) f/u in 2-3 days Plan discussed with: Other Critical Care Time(min): 30 FÉLIX MCDOWELL MD May 23, 2025 19:50
[2025-05-24] VITALS (107 sets, daily range): BP systolic 72–133; BP diastolic 43–92; PULSE 79–126; RESP 12–27; TEMP 97.5–98.8; O2SAT 90–100
[2025-05-24 04:02] LABS: Hemoglobin 11.3 g/dL (12.2-16.2)
[2025-05-24 04:06] LABS: Hematocrit 33.6 % (36.0-46.0); Mean Corpuscular Hemoglobin 30.4 pg (28.0-32.0); Mean Corpuscular Volume 90.5 fL (80.0-100.0)
[2025-05-24 04:23] LABS: Alanine Aminotransferase 28 U/L (7-40); Alkaline Phosphatase 60 U/L (46-116); Anion Gap 5 (5-15); BUN/Creatinine Ratio 34.1 (10.0-20.0); Bilirubin, Total 0.7 mg/dL (0.2-1.0); Blood Urea Nitrogen 15 mg/dL (9-23); Calcium 9.2 mg/dL (8.7-10.4); Chloride 104 mmol/L (98-107); Magnesium 2.0 mg/dL (1.6-2.6); Potassium 4.3 mmol/L (3.5-5.1); Sodium 144 mmol/L (136-145)
[2025-05-24 04:44] LABS: Albumin 2.8 g/dL (3.2-4.8); Carbon Dioxide 35 mmol/L (20-31); Glucose 182 mg/dL (74-106); Total Protein 4.3 g/dL (5.7-8.2)
[2025-05-24 05:23] LABS: Stomatocytes Few; Total Cells Counted 100.0 (100)
--- NOTE | 2025-05-24 05:48 | DVH ---
CHEST RADIOGRAPH Indication: RESP FAILURE Technique: Single frontal view of the chest was obtained Comparison: XY CHEST PORTABLE on DOS: 05/23/25, XY CHEST PORTABLE on DOS: 05/22/25, CT CHEST WITHOUT CONT RAST on DOS: 05/21/25 IMPRESSION: Heart appears normal in size. Endotracheal tube, enteric tube, and right IJ catheter appear satisfact ory position. Stable rounded mass in the right lower lobe. No sizable effusion or pneumothorax. No si gnificant interval change.
--- NOTE | 2025-05-24 11:14 | DVHPN2 ---
Subjective The patient seen and examined at bedside. Remained intubate. Reviewed: Care Plan Changes from previous H/P or p: No Changes General: Per HPI Eyes: No Pain, No Vision change, No Conjunctivae inflammation, No Eyelid inflammation, No Other, No Redness ENT: No Ear pain, No Ear discharge, No Nose pain, No Nose discharge, No Nose congestion, No Mouth pain, No Mouth swelling, No Throat pain, No Throat swelling, No Other Cardiovascular: No Chest Pain, No Palpitations, No Orthopnea, No Paroxysmal Noc. Dyspnea, No Edema, No Lt Headedness, No Other Respiratory: No Cough, No Dry; Shortness of breath, SOB with excertion, W heezing; No Hemoptysis, No Pleuritic Pain, No Sputum; Other (SOB at rest) Gastrointestinal: No Nausea, No Vomiting, No Abdominal Pain, No Diarrhea, No Constipation, No Melena, No Hematochezia, No Other Genitourinary: No Dysuria, No Frequency, No Incontinence, No Hematuria, No Retention, No Other Musculoskeletal: No other, No neck pain, No shoulder pain, No arm pain, No back pain, No hand pain, No leg pain, No foot pain Skin: No Rash, No Lesions, No Jaundice, No Bruising, No Other Objective Vitals Vital Signs Date Time Temp Pulse Resp B/P (MAP) Pulse Ox O2 Delivery O2 Flow Rate FiO2 05/24/25 10:15 107 14 98/62 (74) 95 05/24/25 10:11 30 05/24/25 09:47 Mechanical Ventilator+ 05/24/25 07:30 97.7 97.7 Intake/Output Intake and Output 05/24/25 07:00 Intake Total 1145.145 ml Output Total 650 ml Balance 495.145 ml Intake Oral 210 ml IV Total 735.145 ml Tube Feeding 200 ml Output Urine Total 650 ml General Appearance: Other (Intubated, on vent) HEENT: Atraumatic Neck: Supple Cardiovascular: Regular rate, Normal S1, Normal S2, No murmurs, Gallops, Rubs Abdomen: No Normal bowel sounds; Soft, No tenderness Medications Current Medications Medications Dose Ordered Sig/Atilio Route Start Time Stop Time Status Last Admin Dose Admin Midazolam HCl 50 ml @ 1 mls/hr Q24H IV 05/16/25 22:00 05/22/25 14:02 2 MLS/HR Fentanyl Citrate 250 ml @ 2.5 mls/hr Q24H IV 05/16/25 22:00 05/24/25 01:38 15 MLS/HR Vancomycin HCl 0 ml @ 0 mls/hr UD IV 05/16/25 22:30 Famotidine 20 mg Q12HR IV 05/17/25 10:00 05/24/25 07:31 20 MG Diagnostic Test (Pha) 1 strip Q6HR 05/17/25 00:00 05/24/25 07:33 1 STRIP Insulin Human Regular Q6HR SC 05/17/25 00:00 05/24/25 05:56 4 UNITS Dextrose 50 ml UD PRN IV 05/16/25 22:30 Ondansetron HCl 4 mg Q4HP PRN IV 05/16/25 22:30 Nitroglycerin 0.4 mg Q5MINP PRN SL 05/16/25 22:30 Acetaminophen 650 mg Q6HP PRN GT 05/17/25 11:45 05/21/25 09:00 650 MG Ipratropium [place] 0.5 mg Q6HR NEB 05/17/25 12:00 05/24/25 06:17 0.5 MG Budesonide 0.5 mg BID NEB 05/17/25 22:00 05/24/25 06:17 0.5 MG Albuterol 2.5 mg Q6HR NEB 05/17/25 18:00 05/24/25 06:17 2.5 MG Enteral Nutritional Formula 1,000 ml 30ML/HR GT 05/18/25 14:30 Aspirin 81 mg DAILY PO 05/20/25 10:00 05/24/25 07:32 81 MG Ertapenem 1 gm/ Sodium Chloride 50 ml @ 100 mls/hr DAILY@1200 IV 05/20/25 12:00 05/23/25 11:53 100 MLS/HR Lactulose 30 ml BID PO 05/21/25 10:00 05/23/25 22:13 30 ML Vancomycin HCl 100 ml @ 100 mls/hr Q16H IV 05/22/25 01:00 05/24/25 01:42 100 MLS/HR Norepinephrine Bitartrate 250 ml @ 1.875 mls/ hr Q24H IV 05/21/25 11:00 05/23/25 10:50 7.5 MLS/HR Methylprednisolone Sodium Succinate 40 mg BID IV 05/21/25 22:00 05/24/25 07:32 40 MG Enoxaparin Sodium 40 mg DAILY SC 05/22/25 10:00 05/24/25 07:32 40 MG Propofol 100 ml @ 1.566 mls/ hr Q24H IV 05/22/25 10:30 Laboratory Results Laboratory Tests 05/24/25 03:43 Chemistry Test 05/24/25 03:43 Albumin 2.8 g/dL (3.2-4.8) L Calcium Level 9.2 mg/dL (8.7-10.4) Magnesium Level 2.0 mg/dL (1.6-2.6) Total Protein 4.3 g/dL (5.7-8.2) L LFT Test 05/24/25 03:43 Alanine Aminotransferase (ALT) 28 U/L (7-40) Alkaline Phosphatase 60 U/L (46-116) Aspartate Amino Transferase (AST) 23 U/L (13-40) Total Bilirubin 0.7 mg/dL (0.2-1.0) Urinalysis Test 05/17/25 23:40 Urine Color Yellow (Yellow) Urine Clarity Ex.turbid (Clear) Urine pH 5.5 (5.0-9.0) Urine Specific [place] 1.023 (1.001-1.035) Urine Protein Trace (Negative) H Urine Ketones Trace (Negative) Urine Blood Trace /uL (Negative) H Urine Nitrite Negative (Negative) Urine Bilirubin Negative (Negative) Urine Urobilinogen Normal mg/dL (Negative) Urine Leukocyte Esterase Negative /uL (Negative) Urine RBC 20 /hpf (0 - 4) Urine Microscopic WBC 6 /HPF (0-5) H Urine Squamous Epithelial Cells Few /hpf (<5) Urine Uric Acid Crystals Mod /hpf (None Seen) Urine Amorphous Crystals Few /hpf (None Seen) Urine Bacteria None seen /hpf (None Seen) Urine Granular Casts Few /lpf (0) Urine Glucose Normal mg/dL (Normal) Blood Gas Results Test 05/23/25 11:48 Arterial Blood pH 7.461 (7.350-7.450) FiO2 % 30.0 Microbiology Microbiology Date/Time Source Procedure Growth Status 05/21/25 14:50 Urine - [place] Urine Culture - Final Complete 05/20/25 20:05 Blood Blood Culture - Preliminary NO GROWTH AFTER 72 HOURS OF INCUBATION. Resulted 05/17/25 01:30 Nose MRSA Screen - Final Complete 05/16/25 22:02 Sputum Gram Stain - Final Resulted 05/16/25 22:02 Sputum Respiratory Culture - Preliminary Resulted Labs and/or images reviewed: Labs reviewed by me Assessment/Plan Assessment/Plan NEURO: Chronic vessel ischemic disease Duchenne myotonic dystrophy CT head shows chronic vessel ischemic disease. No acute intracranial abnormality. CARDIOVASCULAR: Status post cardiac arrest Hypotension requiring pressor support NSTEMI likely type 1 Septic Shock secondary to pneumonia Heart failure with reduced ejection fraction Rule out ischemic cardiomyopathy Dyslipidemia Status post surgical aortic valve replacement 2023 Cardiology: Status post left heart catheterization, continue aspirin and atorvastatin Left heart catheterization showed Ventriculography in the SINGH projection shows an EF of about 25-30%. There is anterior apical and inferior apical hypokinesis and anterior and inferior mid and basal akinesis. This is an unusual presentation with we will be considered the reverse characteristics of a takotsubo syndrome. Lovenox decreased to 50 mg sc daily. Patient does not take any blood thinners at home. CPAP trial in a.m.. Echocardiogram pending Aspirin 81 mg daily, atorvastatin 40 mg p.o. HS daily Lovenox 1 mg/kg b.i.d. PULMONARY: Acute on chronic hypoxic respiratory failure status post intubation 05/16 Acute COPD exacerbation Chronic oxygen dependence Possible gram positive/Gram-negative pneumonia Former nicotine dependence 7.1 x 3.8 cm lobulated opacity - rounded atelectasis vs loculated effusion Continue IV vancomycin, IV ertapenem, Solu-Medrol 60 b.i.d. Ipratropium, albuterol, budesonide nebulized treatments Zosyn switched to IV ertapenem 05/19 CT chest without contrast shows 7.1 x 3.8 cm lobulated opacity in the right lower lobe. Bilateral dependent atelectasis, [id number]-left. Large right lower lobe lobulated opacity favored to reflect an infectious / inflammatory etiology. Doubt malignancy given size and no definite right lower lobe pulmonary nodules appreciated on 09/08/2024. Mildly prominent mediastinal nodes favored reactive. Centrilobular emphysema. GASTROINTESTINAL: Transaminitis Ultrasound pending GENITOURINARY: Complicated Klebsiella ESBL cystitis History of ESBL UTI IV ertapenem HEMATOLOGY: Unspecified myeloproliferative disorder Leukocytosis Thrombocytosis CBC daily METABOLIC: ? Euthyroid sick syndrome Monitor INFECTIOUS DISEASE: Septic shock likely due to pneumonia ESBL UTI Zosyn switched to IV ertapenem 05/19 DIET: Tube feedings DVT prophylax: 1 mg/kg twice daily GI prophylaxis: Famotidine 20 twice daily Bowel regimen: Lactulose bid Code status: Full code LINES/DRAINS/ACCESS: IV access: Right IJ CVC 05/17 Drips: Versed fentanyl Levophed Anaya catheter: 05/16 DISPOSITION: ICU Critical care time spent more than 38 minutes, including patient care, chart review, and updating the family. Excluding any procedures Plan discussed with: Other (Rn) Date of Service: May 24, 2025 Billing Provider: NEVIN HOPSON MD Common Visit Codes: [id number] CARE 30-74 MIN NEVIN HOPSON MD May 24, 2025 11:14
--- NOTE | 2025-05-24 13:22 | DVHPN2 ---
Progress Note - Dictate Date Seen: May 24, 2025 Medical Necessity Reason Pt with a Central, PICC or Fol: Yes The following are medically ne: Central Line, Walter Catheter Reason for walter catheter: Strict I&O vital signs Vital Sign Date Time Temp Pulse Resp B/P (MAP) Pulse Ox O2 Delivery O2 Flow Rate FiO2 05/24/25 13:17 87/65 05/24/25 12:45 116 21 93 05/24/25 12:27 30 05/24/25 12:26 Mechanical Ventilator+ 05/24/25 11:15 97.5 97.5 Total Intake and Output 05/23/25 05/23/25 05/24/25 15:00 23:00 07:00 Intake Total 252.940 ml 322.750 ml 569.455 ml Output Total 350 ml 300 ml Balance 252.940 ml -27.250 ml 269.455 ml medications Current Medications Medications Dose Ordered Sig/Atilio Route Start Time Stop Time Status Last Admin Dose Admin Midazolam HCl 50 ml @ 1 mls/hr Q24H IV 05/16/25 22:00 05/22/25 14:02 2 MLS/HR Fentanyl Citrate 250 ml @ 2.5 mls/hr Q24H IV 05/16/25 22:00 05/24/25 01:38 15 MLS/HR Vancomycin HCl 0 ml @ 0 mls/hr UD IV 05/16/25 22:30 Famotidine 20 mg Q12HR IV 05/17/25 10:00 05/24/25 07:31 20 MG Diagnostic Test (Pha) 1 strip Q6HR 05/17/25 00:00 05/24/25 11:19 1 STRIP Insulin Human Regular Q6HR SC 05/17/25 00:00 05/24/25 12:00 3 UNITS Dextrose 50 ml UD PRN IV 05/16/25 22:30 Ondansetron HCl 4 mg Q4HP PRN IV 05/16/25 22:30 Nitroglycerin 0.4 mg Q5MINP PRN SL 05/16/25 22:30 Acetaminophen 650 mg Q6HP PRN GT 05/17/25 11:45 05/21/25 09:00 650 MG Ipratropium [place] 0.5 mg Q6HR NEB 05/17/25 12:00 05/24/25 11:40 0.5 MG Budesonide 0.5 mg BID NEB 05/17/25 22:00 05/24/25 06:17 0.5 MG Albuterol 2.5 mg Q6HR NEB 05/17/25 18:00 05/24/25 11:40 2.5 MG Enteral Nutritional Formula 1,000 ml 30ML/HR GT 05/18/25 14:30 Aspirin 81 mg DAILY PO 05/20/25 10:00 05/24/25 07:32 81 MG Ertapenem 1 gm/ Sodium Chloride 50 ml @ 100 mls/hr DAILY@1200 IV 05/20/25 12:00 05/24/25 11:19 100 MLS/HR Lactulose 30 ml BID PO 05/21/25 10:00 05/23/25 22:13 30 ML Vancomycin HCl 100 ml @ 100 mls/hr Q16H IV 05/22/25 01:00 05/24/25 01:42 100 MLS/HR Norepinephrine Bitartrate 250 ml @ 1.875 mls/ hr Q24H IV 05/21/25 11:00 05/24/25 13:17 7.5 MLS/HR Methylprednisolone Sodium Succinate 40 mg BID IV 05/21/25 22:00 05/24/25 07:32 40 MG Enoxaparin Sodium 40 mg DAILY SC 05/22/25 10:00 05/24/25 07:32 40 MG Propofol 100 ml @ 1.566 mls/ hr Q24H IV 05/22/25 10:30 laboratory and microbiology Laboratory Tests 05/24/25 03:43 Test 05/24/25 03:43 Range/Units Serum Glucose 182 H 74-106 mg/dL Assessment/Plan Covering for Dr. Castañeda Impression Acute hypoxemic respiratory failure Acute COPD exacerbation Right lung mass Emphysema Patient seen and examined in ICU Events On mechanical ventilation S/p intubation Tolerating t-piece Labs and imaging reviewed ABG reviewed Management Vent support Titrate to maintain sats 90% or above Daily sedation holiday If patient follows commands, proceed to weaning trial Pressure support 03/21, extubate when ready Antibiotics Bronchodilators Continue steroids Monitor renal function Monitor electrolytes Supplement as needed Pressors as needed for hemodynamic support To maintain a mean arterial pressure of 65 mmHg DVT prophylaxis Critical care time 35 minutes Dietary Evaluation Review Comments: 1) If patient remains NPO > 7 days, consider EN/TPN to meet at least 75% of estimated energy needs 2) If GI is preferred, consider Jevity 1.2 @ 35 mL/hr goal rate as tolerated. Flush with 200 mL free H2O Q6H. EN regimen will provide 1008 kcals, 47g Pro, 1478 mL free H2O (including flushes) per 24 hrs. Goal rate will meet ~97% estimated energy needs and 64% estimated protein needs 3) Advanced to regular diet when medically feasible, pending ST approval 4) Follow-up with pulmonology 5) Continue to monitor I&O, labs, and skin integrity Expected Outcomes/Goals: 1) labs to improve 2) patient to receive nutritional support within 7 days of NPO status 3) diet to advance 4) f/u in 2-3 days Plan discussed with: Other (rN) MARNIE TSAI MD May 24, 2025 13:22
--- NOTE | 2025-05-24 18:03 | CONS ---
Pharmacy Clinical Information: MARINA PER PHARMACY ORDER UP FOR RENEWAL... PLEASE RENEW IF IT IS DESIRED TO CONTINUE BRIA RIDER PHARMACIST May 24, 2025 18:03
[2025-05-25] VITALS (107 sets, daily range): BP systolic 70–179; BP diastolic 48–137; PULSE 93–146; RESP 8–35; TEMP 98.3–99.1; O2SAT 89–99
[2025-05-25 03:55] LABS: Hematocrit 35.7 % (36.0-46.0); Hemoglobin 12.2 g/dL (12.2-16.2); Mean Corpuscular Hemoglobin 30.9 pg (28.0-32.0); Mean Corpuscular Volume 90.2 fL (80.0-100.0)
[2025-05-25 04:15] LABS: Alanine Aminotransferase 25 U/L (7-40); Albumin 3.2 g/dL (3.2-4.8); Alkaline Phosphatase 60 U/L (46-116); Anion Gap 6 (5-15); BUN/Creatinine Ratio 34.1 (10.0-20.0); Blood Urea Nitrogen 15 mg/dL (9-23); Calcium 9.5 mg/dL (8.7-10.4); Chloride 104 mmol/L (98-107); Magnesium 2.0 mg/dL (1.6-2.6); Potassium 4.3 mmol/L (3.5-5.1); Sodium 144 mmol/L (136-145)
[2025-05-25 04:16] LABS: Bilirubin, Total 0.9 mg/dL (0.2-1.0)
[2025-05-25 04:21] LABS: Carbon Dioxide 34 mmol/L (20-31); Glucose 144 mg/dL (74-106); Total Protein 4.8 g/dL (5.7-8.2)
[2025-05-25 04:37] LABS: Total Cells Counted 100.0 (100)
[2025-05-25 04:38] LABS: Stomatocytes Few
--- NOTE | 2025-05-25 05:25 | DVH ---
CHEST RADIOGRAPH Indication: RESP FAILURE Technique: Single frontal view of the chest was obtained COMPARISON: XY CHEST PORTABLE on DOS: 05/24/25, XY CHEST PORTABLE on DOS: 05/23/25, XY CHEST PORTABLE on DOS: 05/22/25, CT CHEST WITHOUT CONTRAST on DOS: 05/21/25, XY CHEST XRAY 1 VIEW on DOS: 05/21/25 FINDINGS: Lines and Tubes: Slight interval retraction of the endotracheal tube such that the tip now projects a pproximately 6.0 cm above the level of the rohan. Lungs: Stable appearance of rounded density within the lateral right lung base. Remaining lung zones are clear. Pleura: No effusion. No pneumothorax. Cardiomediastinal contours: Unremarkable Bones: Unremarkable IMPRESSION: 1. Slight interval retraction of the endotracheal tube. Remaining lines and tubes unchanged. 2. Otherwise stable chest.
[2025-05-25 07:23] LABS: Base Excess 5.6 mmol/L (-2.0-3.0)
[2025-05-25 10:05] LABS: Base Excess 5.3 mmol/L (-2.0-3.0)
[2025-05-25] MEDS: FUROSEMIDE 20 MG/2 ML VIAL IV ONE ×2 (10:31→15:45)
--- NOTE | 2025-05-25 11:04 | DVHPN2 ---
Progress Note - Dictate Date Seen: May 25, 2025 Medical Necessity Reason Pt with a Central, PICC or Fol: Yes The following are medically ne: Central Line, Walter Catheter Reason for walter catheter: Strict I&O Subjective Ms. Bauman is a 64 years old right-handed female with a history of dyslipidemia, asthma, aortic stenosis, COPD, myeloproliferative disorder, myotonic muscular dystrophy, the patient was taken to the hospital with a chief complaint of shortness of breath, I have seen and examined the patient, I have talked to her nurse, eyes are open, she tracks, but she does not follow my verbal commands, she does not move for me RN, Family: followed verbal commands Levo 4 mcg/minute, Versed 0 mg/hour, fentanyl 150 mcg/hour. CBC, 05/16/2021: Respiratory acidosis, 05/17/2025: Respiratory acidosis, 05/18/25: Hypoxia, carbon dioxide retention WBC/HB/PLT/MCV, 05/16/2025: 62.5/15. 4/640/94.2, 05/17/2025: 72.6/16.1/520/91.2, 05/18/2025: 25.1/13.3/248/90.4 BUN/CR, 05/17/2025: 15/0.56 GFR, 05/17/2025: 103 Lactic acid, 05/16/25: 5.3 HGB A1c, 05/16/2025: 4.2 Troponin one high sensitivity, 05/16/2025: 1209, 2081, 4211, 05/18/2025: 7100 TBI/AST/ALT/AP, 05/17/2025: 1.8/86/25/183 TG/HDL/LDL/HDL, 05/18/2025: 198/116/54/34 KUB, 05/22/2025: Nonobstructive bowel gas pattern. Nasogastric tube tip in the stomach CT head, 05/17/2025: 1. No acute intracranial abnormality. 2. Chronic sequelae of microvascular disease CT head, 05/18/2025: No acute intracranial abnormality seen. Advanced chronic small vessel ischemic eubanks CT chest, 05/21/2025: 1. Large right lower lobe lobulated opacity favored to reflect an infectious / inflammatory etiology. Doubt malignancy given size and no definite right lower lobe pulmonary nodules appreciated on 09/08/2024. 2. Mildly prominent mediastinal nodes favored reactive. 3. Centrilobular emphysema. vital signs Vital Sign Date Time Temp Pulse Resp B/P (MAP) Pulse Ox O2 Delivery O2 Flow Rate FiO2 05/25/25 10:31 121/76 05/25/25 10:26 109 14 96 30 05/25/25 06:00 Mechanical Ventilator+ 05/25/25 04:00 98.7 98.7 Total Intake and Output 05/24/25 05/24/25 05/25/25 15:00 23:00 07:00 Intake Total 248.956 ml 502.283 ml 399.250 ml Output Total 250 ml 365 ml Balance 248.956 ml 252.283 ml 34.250 ml medications Current Medications Medications Dose Ordered Sig/Atilio Route Start Time Stop Time Status Last Admin Dose Admin Midazolam HCl 50 ml @ 1 mls/hr Q24H IV 05/16/25 22:00 05/24/25 17:04 1 MLS/HR Fentanyl Citrate 250 ml @ 2.5 mls/hr Q24H IV 05/16/25 22:00 05/24/25 23:28 15 MLS/HR Vancomycin HCl 0 ml @ 0 mls/hr UD IV 05/16/25 22:30 Famotidine 20 mg Q12HR IV 05/17/25 10:00 05/25/25 10:31 20 MG Diagnostic Test (Pha) 1 strip Q6HR 05/17/25 00:00 05/25/25 06:05 1 STRIP Insulin Human Regular Q6HR SC 05/17/25 00:00 05/24/25 18:28 2 UNITS Dextrose 50 ml UD PRN IV 05/16/25 22:30 Ondansetron HCl 4 mg Q4HP PRN IV 05/16/25 22:30 Nitroglycerin 0.4 mg Q5MINP PRN SL 05/16/25 22:30 Acetaminophen 650 mg Q6HP PRN GT 05/17/25 11:45 05/21/25 09:00 650 MG Ipratropium [place] 0.5 mg Q6HR NEB 05/17/25 12:00 05/25/25 06:45 0.5 MG Budesonide 0.5 mg BID NEB 05/17/25 22:00 05/25/25 06:45 0.5 MG Albuterol 2.5 mg Q6HR NEB 05/17/25 18:00 05/25/25 06:45 2.5 MG Enteral Nutritional Formula 1,000 ml 30ML/HR GT 05/18/25 14:30 Aspirin 81 mg DAILY PO 05/20/25 10:00 05/25/25 10:32 81 MG Ertapenem 1 gm/ Sodium Chloride 50 ml @ 100 mls/hr DAILY@1200 IV 05/20/25 12:00 05/24/25 11:19 100 MLS/HR Lactulose 30 ml BID PO 05/21/25 10:00 05/24/25 21:26 30 ML Vancomycin HCl 100 ml @ 100 mls/hr Q16H IV 05/22/25 01:00 05/25/25 08:51 100 MLS/HR Norepinephrine Bitartrate 250 ml @ 1.875 mls/ hr Q24H IV 05/21/25 11:00 05/25/25 08:50 7.5 MLS/HR Methylprednisolone Sodium Succinate 40 mg BID IV 05/21/25 22:00 05/25/25 10:31 40 MG Enoxaparin Sodium 40 mg DAILY SC 05/22/25 10:00 05/25/25 10:32 40 MG Propofol 100 ml @ 1.566 mls/ hr Q24H IV 05/22/25 10:30 05/24/25 13:15 1.566 MLS/HR objective The patient is well-nourished and well-developed with no distress. The patient is intubated MENTAL STATUS: Subjective CRANIAL NERVES: Pupils are round and nonreactive, very small, not sure if the right side is bigger. There are corneal reflexes and doll's eyes phenomenon. No signs of facial weakness. There are gagging or coughing reflexes SENSATION: Responses to pain stimuli. MOTOR: Normal tone in the upper and lower extremity. Normal muscle bulk. No fasciculations. No spontaneous movement. REFLEXES: Deep tendon reflexes are symmetrical. Upgoing toes in both feet. CEREBELLAR/COORDINATION: Deferred GAIT/STATION: deferred. laboratory and microbiology Laboratory Tests 05/25/25 03:20 Test 05/25/25 03:20 Range/Units Serum Glucose 144 H 74-106 mg/dL Problem List Cardiopulmonary arrest Coma Metabolic encephalopathy Hypoxic encephalopathy Toxic encephalopathy Acute respiratory failure Chronic respiratory failure/COPD on home oxygen Elevated troponin I high sensitivity/heart attack Myeloproliferative disorder Assessment/Plan Monitoring Supportive treatment ICU care Follow up labs Stabilize vitals/pressor drip Respiratory support/vent management Oxygen IV antibiotics Lovenox 40 mg subQ daily Aspirin 81 mg daily Lipitor 40 mg daily GI prophylaxis/famotidine More recommendation per clinical course This medical document was created using an electronic medical record system with [employer] dictation system. Although this document has been carefully reviewed, there may still be some phonetic and typographical errors. These areas are purely typographical due to imperfections of the software programs, and do not reflect any compromise in the patient's medical care Prognosis guarded Dietary Evaluation Review Comments: 1) If patient remains NPO > 7 days, consider EN/TPN to meet at least 75% of estimated energy needs 2) If GI is preferred, consider Jevity 1.2 @ 35 mL/hr goal rate as tolerated. Flush with 200 mL free H2O Q6H. EN regimen will provide 1008 kcals, 47g Pro, 1478 mL free H2O (including flushes) per 24 hrs. Goal rate will meet ~97% estimated energy needs and 64% estimated protein needs 3) Advanced to regular diet when medically feasible, pending ST approval 4) Follow-up with pulmonology 5) Continue to monitor I&O, labs, and skin integrity Expected Outcomes/Goals: 1) labs to improve 2) patient to receive nutritional support within 7 days of NPO status 3) diet to advance 4) f/u in 2-3 days Plan discussed with: Son, Other FÉLIX MCDOWELL MD May 25, 2025 11:04
--- NOTE | 2025-05-25 15:51 | CODING ---
Date of Service: May 18, 2025 Billing Provider: CANDIDA MCKEON MD Common Visit Codes: [id number] CARE 30-74 MIN CANDIDA MCKEON MD May 25, 2025 15:51
--- NOTE | 2025-05-25 19:43 | DVHPNRES ---
Progress Note Date Seen: May 25, 2025 Resident Creating Document: GILLIAN MUSA RESIDENT Medical Necessity Reason Pt with a Central, PICC or Fol: Yes The following are medically ne: Central Line, Walter Catheter Reason for walter catheter: Strict I&O Subjective Review of Systems This is a 64-year-old female with COPD on 3 L home oxygen, surgical aortic valve replacement 03/2024, myotonic muscle dystrophy, former nicotine dependence, hyperlipidemia, unspecified myeloproliferative disorder who presented to the ER on 05/16 for the evaluation of shortness of breaths. Per son at the bedside, patient recently lost her dog and was very emotional under stress, she started experiencing shortness of breaths for the past day, associated with wheezing, on arrival to the ER patient was saturating 70% on room air, Solu-Medrol, magnesium was given to the patient, venous pCO2 was 119, WBC count 62, she had increased workup breathing and therefore patient was intubated 05/16 at around 11:00 p.m., blood pressure was 70/22 following intubation patient underwent cardiac arrest, CPR was resumed for 10 minutes-2 epis and 2 bicarb pushes were given to the patient. No defibrillation. Following that patient has been on vanc/Zosyn/azithromycin/Solu-Medrol 60 IV b.i.d./Versed/fentanyl/Levophed. Blood cultures preliminary negative, respiratory culture showing phlegm Lantus yeast, Gram-positive cocci, urine culture growing 1 lac Gram-negative rods, CT head was negative, troponin 1200 increasing to 7100, decreasing to 4500. BNP on arrival 809, lactic acidosis. Past medical/surgical history COPD on 3 L home oxygen, surgical aortic valve replacement 03/2024, myotonic muscle dystrophy, former nicotine dependence, hyperlipidemia, unspecified myeloproliferative disorder, hysterectomy, Home medication: Aspirin, prednisolone, atorvastatin , Trelegy inhaler Social history: Quit smoking 6 years back, uses a cane to ambulate. [employer] Dr. 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 Payton 05/19, Patient seen and examined in 112, sedation vacation was completed this morning, patient responded to commands by opening her eyes overnight 100.2 F low-grade fever, blood pressure 87 systolic to 121 systolic, 30% FiO2, urine output 700, prelim EF 20%, cardiology recommends left heart catheterization tomorrow. 05/20-patient seen and examined, chest x-ray shows right lower lobe opacity mixed respiratory acidosis with metabolic alkalosis, left heart catheterization today. WBC increased to twenty-seven, liver ultrasound shows Mildly dilated 7.5 mm common duct. Please correlate with laboratory values and consider MRCP if warranted. LFTs unremarkable. One set of blood culture positive for gram- positive cocci in clusters, patient on vanc. Re 05/21 -hypoactive bowel sounds, systolic murmur over femoral site of catheterization, no bleeding, no erythema, no swelling. Solu-Medrol decreased to 40 mg IV b.i.d., sedation turned off. On Levophed. CT chest without contrast shows 7.1 x 3.8 cm lobulated opacity in the right lower lobe. Bilateral dependent atelectasis, [id number]-ksbg-left. Large right lower lobe lobulated opacity favored to reflect an infectious / inflammatory etiology. Doubt malignancy given size and no definite right lower lobe pulmonary nodules appreciated on 09/08/2024. Mildly prominent mediastinal nodes favored reactive. Centrilobular emphysema. Left heart catheterization showed Ventriculography in the SINGH projection shows an EF of about 25-30%. There is anterior apical and inferior apical hypokinesis and anterior and inferior mid and basal akinesis. This is an unusual presentation with we will be considered the reverse characteristics of a takotsubo syndrome. Lovenox decreased to 50 mg sc daily. Patient does not take any blood thinners at home. CPAP trial in a.m.. 05/22 - versed was off overnight, pt agitated in AM, versed, fent restarted, radiologist recommending to f/u [facility] imaging on the possible rounded atelectasis, no intervention. cpap tomorrow. On levophed 05/25- over weeend, patient failed CPAP trial, today CPAP trial, nif -18, patient tachycardic in the 140s, switched to AC mode. Lasix 20 mg IV twice given. CPAP trial in a.m.. Objective vital signs Vital Sign Date Time Temp Pulse Resp B/P (MAP) Pulse Ox O2 Delivery O2 Flow Rate FiO2 05/25/25 18:21 97/70 05/25/25 17:51 113 22 97 30 05/25/25 08:15 Mechanical Ventilator+ 05/25/25 04:00 98.7 98.7 Total Intake and Output 05/24/25 05/24/25 05/25/25 15:00 23:00 07:00 Intake Total 248.956 ml 502.283 ml 399.250 ml Output Total 250 ml 365 ml Balance 248.956 ml 252.283 ml 34.250 ml medications Current Medications Medications Dose Ordered Sig/Atilio Route Start Time Stop Time Status Last Admin Dose Admin Midazolam HCl 50 ml @ 1 mls/hr Q24H IV 05/16/25 22:00 05/25/25 18:21 1 MLS/HR Fentanyl Citrate 250 ml @ 2.5 mls/hr Q24H IV 05/16/25 22:00 05/25/25 15:47 17.5 MLS/HR Vancomycin HCl 0 ml @ 0 mls/hr UD IV 05/16/25 22:30 Famotidine 20 mg Q12HR IV 05/17/25 10:00 05/25/25 10:31 20 MG Diagnostic Test (Pha) 1 strip Q6HR 05/17/25 00:00 05/25/25 18:02 1 STRIP Insulin Human Regular Q6HR SC 05/17/25 00:00 05/25/25 18:06 2 UNITS Dextrose 50 ml UD PRN IV 05/16/25 22:30 Ondansetron HCl 4 mg Q4HP PRN IV 05/16/25 22:30 Nitroglycerin 0.4 mg Q5MINP PRN SL 05/16/25 22:30 Acetaminophen 650 mg Q6HP PRN GT 05/17/25 11:45 05/21/25 09:00 650 MG Ipratropium [place] 0.5 mg Q6HR NEB 05/17/25 12:00 05/25/25 17:51 0.5 MG Budesonide 0.5 mg BID NEB 05/17/25 22:00 05/25/25 17:51 0.5 MG Albuterol 2.5 mg Q6HR NEB 05/17/25 18:00 05/25/25 17:51 2.5 MG Enteral Nutritional Formula 1,000 ml 30ML/HR GT 05/18/25 14:30 Aspirin 81 mg DAILY PO 05/20/25 10:00 05/25/25 10:32 81 MG Ertapenem 1 gm/ Sodium Chloride 50 ml @ 100 mls/hr DAILY@1200 IV 05/20/25 12:00 05/25/25 13:41 100 MLS/HR Lactulose 30 ml BID PO 05/21/25 10:00 05/24/25 21:26 30 ML Norepinephrine Bitartrate 250 ml @ 1.875 mls/ hr Q24H IV 05/21/25 11:00 05/25/25 08:50 7.5 MLS/HR Methylprednisolone Sodium Succinate 40 mg BID IV 05/21/25 22:00 05/25/25 10:31 40 MG Enoxaparin Sodium 40 mg DAILY SC 05/22/25 10:00 05/25/25 10:32 40 MG Propofol 100 ml @ 1.566 mls/ hr Q24H IV 05/22/25 10:30 05/24/25 13:15 1.566 MLS/HR Examination Female patient lying in the bed comfortably, intubated and mechanically ventilated, no acute distress General: Low-grade fever, RASS -2, palor, mucosae are moist Cardiovascular: Tachycardia but Regular S1 and S2. No murmurs, gallops or rubs. No JVD elevation. Trace Pitting pedal edema Respiratory: Decreased breath sounds in the lower lobes, no wheezing heard Abdomen: Soft, nontender, nondistended, normoactive bowel sounds, no rebound tenderness, no organomegaly, no masses Genitourinary: Deferred MSK/skin: Skin is dry and warm laboratory and microbiology Laboratory Tests 05/25/25 03:20 Test 05/25/25 03:20 Range/Units Serum Glucose 144 H 74-106 mg/dL Microbiology Date/Time Source Procedure Growth Status 05/21/25 14:50 Urine - Walter [place] Urine Culture - Final Complete 05/20/25 20:05 Blood Blood Culture - Preliminary NO GROWTH AFTER 72 HOURS OF INCUBATION. Resulted 05/17/25 01:30 Nose MRSA Screen - Final Complete 05/16/25 22:02 Sputum Gram Stain - Final Resulted 05/16/25 22:02 Sputum Respiratory Culture - Preliminary Resulted Labs and/or images reviewed: Labs reviewed by me, Image(s) reviewed by me Problem List/Assessment/Plan Problem List/Assessment/Plan NEURO: Chronic vessel ischemic disease Duchenne myotonic dystrophy CT head shows chronic vessel ischemic disease. No acute intracranial abnormality. CARDIOVASCULAR: Status post cardiac arrest Hypotension requiring pressor support NSTEMI likely type 1 Septic Shock secondary to pneumonia Heart failure with reduced ejection fraction Rule out ischemic cardiomyopathy Dyslipidemia Status post surgical aortic valve replacement 2023 Cardiology: Status post left heart catheterization, continue aspirin and atorvastatin Left heart catheterization showed Ventriculography in the SINGH projection shows an EF of about 25-30%. There is anterior apical and inferior apical hypokinesis and anterior and inferior mid and basal akinesis. This is an unusual presentation with we will be considered the reverse characteristics of a takotsubo syndrome. Lovenox decreased to 50 mg sc daily. Patient does not take any blood thinners at home. CPAP trial in a.m.. Echocardiogram pending Aspirin 81 mg daily, atorvastatin 40 mg p.o. HS daily Lovenox 1 mg/kg b.i.d. PULMONARY: Acute on chronic hypoxic respiratory failure status post intubation 05/16 Acute COPD exacerbation Chronic oxygen dependence Possible gram positive/Gram-negative pneumonia Former nicotine dependence 7.1 x 3.8 cm lobulated opacity - rounded atelectasis vs loculated effusion Continue IV vancomycin, IV ertapenem, Solu-Medrol 60 b.i.d. Ipratropium, albuterol, budesonide nebulized treatments Zosyn switched to IV ertapenem 05/19 CT chest without contrast shows 7.1 x 3.8 cm lobulated opacity in the right lower lobe. Bilateral dependent atelectasis, [id number]-[id number]-qguh-left. Large right lower lobe lobulated opacity favored to reflect an infectious / inflammatory etiology. Doubt malignancy given size and no definite right lower lobe pulmonary nodules appreciated on 09/08/2024. Mildly prominent mediastinal nodes favored reactive. Centrilobular emphysema. GASTROINTESTINAL: Transaminitis Ultrasound pending GENITOURINARY: Complicated Klebsiella ESBL cystitis History of ESBL UTI IV ertapenem HEMATOLOGY: Unspecified myeloproliferative disorder Leukocytosis Thrombocytosis CBC daily METABOLIC: ? Euthyroid sick syndrome Monitor INFECTIOUS DISEASE: Septic shock likely due to pneumonia ESBL UTI Zosyn switched to IV ertapenem 05/19 DIET: Tube feedings DVT prophylax: 1 mg/kg twice daily GI prophylaxis: Famotidine 20 twice daily Bowel regimen: Lactulose bid Code status: Full code LINES/DRAINS/ACCESS: IV access: Right IJ CVC 05/17 Drips: Versed fentanyl Levophed Walter catheter: 05/16 DISPOSITION: ICU Patient's status discussed with patient's son and daughter at bedside Critical care time spent more than 61 minutes, including patient care, chart review, and updating the family. Excluding any procedures Case discussed with Dr. Kern, CPAP trial in a.m. Plan discussed with: Daughter, Son My Orders My Orders Orders - GILLIAN MUSA Procedure Category Date Status Time Abg W/ Co-Ox RT 05/25/25 Logged 09:55 Extubate LUIS ARMANDO 05/25/25 In Process 11:10 Respiratory Misc. RT 05/25/25 Transmitted Order 11:13 Dietary Evaluation Review Comments: 1) If patient remains NPO > 7 days, consider EN/TPN to meet at least 75% of estimated energy needs 2) If GI is preferred, consider Jevity 1.2 @ 35 mL/hr goal rate as tolerated. Flush with 200 mL free H2O Q6H. EN regimen will provide 1008 kcals, 47g Pro, 1478 mL free H2O (including flushes) per 24 hrs. Goal rate will meet ~97% estimated energy needs and 64% estimated protein needs 3) Advanced to regular diet when medically feasible, pending ST approval 4) Follow-up with pulmonology 5) Continue to monitor I&O, labs, and skin integrity Expected Outcomes/Goals: 1) labs to improve 2) patient to receive nutritional support within 7 days of NPO status 3) diet to advance 4) f/u in 2-3 days Date of Service: May 25, 2025 Billing Provider: FAREED KERN MD Common Visit Codes: [id number] CARE 30-74 MIN GILLIAN MUSA May 25, 2025 19:43 FAREED KERN MD May 26, 2025 15:15
[2025-05-26] VITALS (103 sets, daily range): BP systolic 84–146; BP diastolic 53–99; PULSE 97–137; RESP 10–31; TEMP 97.5–100.6; O2SAT 75–100
[2025-05-26] MEDS: SODIUM CHLORIDE 0.9% 250 ML IV ONE (01:30)
[2025-05-26 03:38] LABS: Hematocrit 39.8 % (36.0-46.0); Hemoglobin 13.2 g/dL (12.2-16.2); Mean Corpuscular Hemoglobin 30.1 pg (28.0-32.0); Mean Corpuscular Volume 90.6 fL (80.0-100.0)
[2025-05-26 03:44] LABS: Alkaline Phosphatase 61 U/L (46-116)
[2025-05-26 03:45] LABS: Alanine Aminotransferase 29 U/L (7-40); Anion Gap 7 (5-15); BUN/Creatinine Ratio 41.5 (10.0-20.0); Bilirubin, Total 0.8 mg/dL (0.2-1.0); Blood Urea Nitrogen 22 mg/dL (9-23); Calcium 9.0 mg/dL (8.7-10.4); Chloride 105 mmol/L (98-107); Magnesium 2.0 mg/dL (1.6-2.6); Potassium 4.4 mmol/L (3.5-5.1)
[2025-05-26 03:48] LABS: Albumin 3.1 g/dL (3.2-4.8); Carbon Dioxide 33 mmol/L (20-31); Glucose 146 mg/dL (74-106); Sodium 145 mmol/L (136-145); Total Protein 4.6 g/dL (5.7-8.2)
[2025-05-26 04:33] LABS: Total Cells Counted 100.0 (100)
[2025-05-26 04:34] LABS: Stomatocytes Few
--- NOTE | 2025-05-26 05:30 | DVH ---
CHEST RADIOGRAPH Indication: Follow up Technique: Single frontal view of the chest was obtained COMPARISON: XY CHEST PORTABLE on DOS: 05/25/25, XY CHEST PORTABLE on DOS: 05/24/25, XY CHEST PORTABLE on DOS: 05/23/25, XY CHEST PORTABLE on DOS: 05/22/25, CT CHEST WITHOUT CONTRAST on DOS: 05/21/25, XY CHEST POR TABLE on DOS: 05/22/25 FINDINGS: Lines and Tubes: Endotracheal tube, enteric catheter and right central venous catheter in satisfactor y position. Lungs: Unchanged right lower lobe opacity Pleura: No effusion. No pneumothorax. Cardiomediastinal contours: Unremarkable Bones: Unremarkable IMPRESSION: Lines and tubes in satisfactory position. No significant interval change.
[2025-05-26 07:52] LABS: Base Excess 5.6 mmol/L (-2.0-3.0)
--- NOTE | 2025-05-26 10:44 | DVHPN2 ---
Progress Note - Dictate Date Seen: May 26, 2025 Medical Necessity Reason Pt with a Central, PICC or Fol: Yes The following are medically ne: Central Line, Walter Catheter Reason for walter catheter: Strict I&O Subjective Ms. Bauman is a 64 years old right-handed female with a history of dyslipidemia, asthma, aortic stenosis, COPD, myeloproliferative disorder, myotonic muscular dystrophy, the patient was taken to the hospital with a chief complaint of shortness of breath, I have seen and examined the patient, I have talked to her nurse, eyes are open, she follows verbal commands She can move the arms, ? Less in the left arm CBC, 05/16/2021: Respiratory acidosis, 05/17/2025: Respiratory acidosis, 05/18/25: Hypoxia, carbon dioxide retention WBC/HB/PLT/MCV, 05/16/2025: 62.5/15. 4/640/94.2, 05/17/2025: 72.6/16.1/520/91.2, 05/18/2025: 25.1/13.3/248/90.4 BUN/CR, 05/17/2025: 15/0.56 GFR, 05/17/2025: 103 Lactic acid, 05/16/25: 5.3 HGB A1c, 05/16/2025: 4.2 Troponin one high sensitivity, 05/16/2025: 1209, 2081, 4211, 05/18/2025: 7100 TBI/AST/ALT/AP, 05/17/2025: 1.8/86/25/183 TG/HDL/LDL/HDL, 05/18/2025: 198/116/54/34 KUB, 05/22/2025: Nonobstructive bowel gas pattern. Nasogastric tube tip in the stomach CT head, 05/17/2025: 1. No acute intracranial abnormality. 2. Chronic sequelae of microvascular disease CT head, 05/18/2025: No acute intracranial abnormality seen. Advanced chronic small vessel ischemic eubanks CT chest, 05/21/2025: 1. Large right lower lobe lobulated opacity favored to reflect an infectious / inflammatory etiology. Doubt malignancy given size and no definite right lower lobe pulmonary nodules appreciated on 09/08/2024. 2. Mildly prominent mediastinal nodes favored reactive. 3. Centrilobular emphysema. vital signs Vital Sign Date Time Temp Pulse Resp B/P (MAP) Pulse Ox O2 Delivery O2 Flow Rate FiO2 05/26/25 10:24 95/64 05/26/25 10:00 20 97 Mechanical Ventilator+ 30 30 05/26/25 10:00 119 05/26/25 08:38 99.5 Total Intake and Output 05/25/25 05/25/25 05/26/25 15:00 23:00 07:00 Intake Total 215.750 ml 474.475 ml 870.4 ml Output Total 900 ml 550 ml Balance 215.750 ml -425.525 ml 320.4 ml medications Current Medications Medications Dose Ordered Sig/Atilio Route Start Time Stop Time Status Last Admin Dose Admin Midazolam HCl 50 ml @ 1 mls/hr Q24H IV 05/16/25 22:00 05/25/25 18:21 1 MLS/HR Fentanyl Citrate 250 ml @ 2.5 mls/hr Q24H IV 05/16/25 22:00 05/26/25 06:34 2.5 MLS/HR Vancomycin HCl 0 ml @ 0 mls/hr UD IV 05/16/25 22:30 Famotidine 20 mg Q12HR IV 05/17/25 10:00 05/26/25 09:33 20 MG Diagnostic Test (Pha) 1 strip Q6HR 05/17/25 00:00 05/26/25 06:00 1 STRIP Insulin Human Regular Q6HR SC 05/17/25 00:00 05/26/25 06:00 3 UNITS Dextrose 50 ml UD PRN IV 05/16/25 22:30 Ondansetron HCl 4 mg Q4HP PRN IV 05/16/25 22:30 Nitroglycerin 0.4 mg Q5MINP PRN SL 05/16/25 22:30 Acetaminophen 650 mg Q6HP PRN GT 05/17/25 11:45 05/26/25 07:38 650 MG Ipratropium [place] 0.5 mg Q6HR NEB 05/17/25 12:00 05/26/25 05:51 0.5 MG Budesonide 0.5 mg BID NEB 05/17/25 22:00 05/25/25 17:51 0.5 MG Enteral Nutritional Formula 1,000 ml 30ML/HR GT 05/18/25 14:30 Aspirin 81 mg DAILY PO 05/20/25 10:00 05/26/25 09:33 81 MG Ertapenem 1 gm/ Sodium Chloride 50 ml @ 100 mls/hr DAILY@1200 IV 05/20/25 12:00 05/25/25 13:41 100 MLS/HR Lactulose 30 ml BID PO 05/21/25 10:00 05/24/25 21:26 30 ML Norepinephrine Bitartrate 250 ml @ 1.875 mls/ hr Q24H IV 05/21/25 11:00 05/26/25 10:24 26.25 MLS/HR Methylprednisolone Sodium Succinate 40 mg BID IV 05/21/25 22:00 05/26/25 09:33 40 MG Enoxaparin Sodium 40 mg DAILY SC 05/22/25 10:00 05/26/25 09:33 40 MG Propofol 100 ml @ 1.566 mls/ hr Q24H IV 05/22/25 10:30 05/24/25 13:15 1.566 MLS/HR Levalbuterol HCl 1.25 mg Q6HR NEB 05/26/25 12:00 UNV objective The patient is well-nourished and well-developed with no distress. The patient is intubated MENTAL STATUS: Subjective CRANIAL NERVES: Pupils are round and reactive, small. There conjugated eye movement. No signs of facial weakness. There are gagging or coughing reflexes during the oral care SENSATION: Responses to pain stimuli. MOTOR: Normal tone in the upper and lower extremity. Normal muscle bulk. No fasciculations. Moves the arms REFLEXES: Deep tendon reflexes are symmetrical. Upgoing toes in both feet. CEREBELLAR/COORDINATION: Deferred GAIT/STATION: deferred. laboratory and microbiology Laboratory Tests 05/26/25 03:06 Test 05/26/25 03:06 Range/Units Serum Glucose 146 H 74-106 mg/dL Problem List Cardiopulmonary arrest Coma Metabolic encephalopathy Hypoxic encephalopathy Toxic encephalopathy Acute respiratory failure Chronic respiratory failure/COPD on home oxygen Elevated troponin I high sensitivity/heart attack Myeloproliferative disorder Assessment/Plan Monitoring Supportive treatment ICU care Follow up labs Stabilize vitals/pressor drip Respiratory support/vent management Oxygen IV antibiotics Lovenox 40 mg subQ daily Aspirin 81 mg daily Lipitor 40 mg daily GI prophylaxis/famotidine More recommendation per clinical course This medical document was created using an electronic medical record system with [employer] dictation system. Although this document has been carefully reviewed, there may still be some phonetic and typographical errors. These areas are purely typographical due to imperfections of the software programs, and do not reflect any compromise in the patient's medical care Prognosis Guarded Dietary Evaluation Review Comments: 1) If patient remains NPO > 7 days, consider EN/TPN to meet at least 75% of estimated energy needs 2) If GI is preferred, consider Jevity 1.2 @ 35 mL/hr goal rate as tolerated. Flush with 200 mL free H2O Q6H. EN regimen will provide 1008 kcals, 47g Pro, 1478 mL free H2O (including flushes) per 24 hrs. Goal rate will meet ~97% estimated energy needs and 64% estimated protein needs 3) Advanced to regular diet when medically feasible, pending ST approval 4) Follow-up with pulmonology 5) Continue to monitor I&O, labs, and skin integrity Expected Outcomes/Goals: 1) labs to improve 2) patient to receive nutritional support within 7 days of NPO status 3) diet to advance 4) f/u in 2-3 days Plan discussed with: Other FÉLIX MCDOWELL MD May 26, 2025 10:44
[2025-05-26] MEDS: LEVALBUTEROL HCL 1.25 MG/3 ML NEB NEB SCH (12:15)
[2025-05-26 13:38] LABS: Base Excess 3.1 mmol/L (-2.0-3.0)
[2025-05-26 14:34] LABS: Base Excess 3.6 mmol/L (-2.0-3.0)
[2025-05-26 14:40] LABS: INR 1.48 (0.9-1.15); Partial Thromboplastin Time 39.6 SEC (24.5-34.5); Prothrombin Time 15.1 sec (9.3-11.8)
--- NOTE | 2025-05-26 18:25 | DVHPNRES ---
Progress Note Date Seen: May 26, 2025 Resident Creating Document: GILLIAN MUSA RESIDENT Medical Necessity Reason Pt with a Central, PICC or Fol: Yes The following are medically ne: PICC Line, Walter Catheter Reason for walter catheter: Strict I&O Subjective Review of Systems This is a 64-year-old female with COPD on 3 L home oxygen, surgical aortic valve replacement 03/2024, myotonic muscle dystrophy, former nicotine dependence, hyperlipidemia, unspecified myeloproliferative disorder who presented to the ER on 05/16 for the evaluation of shortness of breaths. Per son at the bedside, patient recently lost her dog and was very emotional under stress, she started experiencing shortness of breaths for the past day, associated with wheezing, on arrival to the ER patient was saturating 70% on room air, Solu-Medrol, magnesium was given to the patient, venous pCO2 was 119, WBC count 62, she had increased workup breathing and therefore patient was intubated 05/16 at around 11:00 p.m., blood pressure was 70/22 following intubation patient underwent cardiac arrest, CPR was resumed for 10 minutes-2 epis and 2 bicarb pushes were given to the patient. No defibrillation. Following that patient has been on vanc/Zosyn/azithromycin/Solu-Medrol 60 IV b.i.d./Versed/fentanyl/Levophed. Blood cultures preliminary negative, respiratory culture showing phlegm Lantus yeast, Gram-positive cocci, urine culture growing 1 lac Gram-negative rods, CT head was negative, troponin 1200 increasing to 7100, decreasing to 4500. BNP on arrival 809, lactic acidosis. Past medical/surgical history COPD on 3 L home oxygen, surgical aortic valve replacement 03/2024, myotonic muscle dystrophy, former nicotine dependence, hyperlipidemia, unspecified myeloproliferative disorder, hysterectomy, Home medication: Aspirin, prednisolone, atorvastatin , Trelegy inhaler Social history: Quit smoking 6 years back, uses a cane to ambulate. [employer] Dr. 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 Payton 05/19, Patient seen and examined in 112, sedation vacation was completed this morning, patient responded to commands by opening her eyes overnight 100.2 F low-grade fever, blood pressure 87 systolic to 121 systolic, 30% FiO2, urine output 700, prelim EF 20%, cardiology recommends left heart catheterization tomorrow. 05/20-patient seen and examined, chest x-ray shows right lower lobe opacity mixed respiratory acidosis with metabolic alkalosis, left heart catheterization today. WBC increased to twenty-seven, liver ultrasound shows Mildly dilated 7.5 mm common duct. Please correlate with laboratory values and consider MRCP if warranted. LFTs unremarkable. One set of blood culture positive for gram- positive cocci in clusters, patient on vanc. Re 05/21 -hypoactive bowel sounds, systolic murmur over femoral site of catheterization, no bleeding, no erythema, no swelling. Solu-Medrol decreased to 40 mg IV b.i.d., sedation turned off. On Levophed. CT chest without contrast shows 7.1 x 3.8 cm lobulated opacity in the right lower lobe. Bilateral dependent atelectasis, [id number]-iyyo-left. Large right lower lobe lobulated opacity favored to reflect an infectious / inflammatory etiology. Doubt malignancy given size and no definite right lower lobe pulmonary nodules appreciated on 09/08/2024. Mildly prominent mediastinal nodes favored reactive. Centrilobular emphysema. Left heart catheterization showed Ventriculography in the SINGH projection shows an EF of about 25-30%. There is anterior apical and inferior apical hypokinesis and anterior and inferior mid and basal akinesis. This is an unusual presentation with we will be considered the reverse characteristics of a takotsubo syndrome. Lovenox decreased to 50 mg sc daily. Patient does not take any blood thinners at home. CPAP trial in a.m.. 05/22 - versed was off overnight, pt agitated in AM, versed, fent restarted, radiologist recommending to f/u [facility] imaging on the possible rounded atelectasis, no intervention. cpap tomorrow. On levophed 05/25- over weeend, patient failed CPAP trial, today CPAP trial, nif -18, patient tachycardic in the 140s, switched to AC mode. Lasix 20 mg IV twice given. CPAP trial in a.m.. 05/26-CPAP trial completed, patient alert, following commands, extubated today. On nasal cannula. BiPAP nocturnal. Discontinue triple-lumen, consultation for PICC line. Triple-lumen catheter, blood culture, sputum culture pending Objective vital signs Vital Sign Date Time Temp Pulse Resp B/P (MAP) Pulse Ox O2 Delivery O2 Flow Rate FiO2 05/26/25 18:00 109 20 110/75 (87) 91 05/26/25 18:00 Bi-Pap+ 30 30 05/26/25 16:00 3 05/26/25 16:00 98.9 98.9 Total Intake and Output 05/25/25 05/25/25 05/26/25 15:00 23:00 07:00 Intake Total 215.750 ml 474.475 ml 897.285 ml Output Total 900 ml 550 ml Balance 215.750 ml -425.525 ml 347.285 ml medications Current Medications Medications Dose Ordered Sig/Atilio Route Start Time Stop Time Status Last Admin Dose Admin Vancomycin HCl 0 ml @ 0 mls/hr UD IV 05/16/25 22:30 Famotidine 20 mg Q12HR IV 05/17/25 10:00 05/26/25 09:33 20 MG Diagnostic Test (Pha) 1 strip Q6HR 05/17/25 00:00 05/26/25 17:31 1 STRIP Insulin Human Regular Q6HR SC 05/17/25 00:00 05/26/25 17:30 2 UNITS Dextrose 50 ml UD PRN IV 05/16/25 22:30 Ondansetron HCl 4 mg Q4HP PRN IV 05/16/25 22:30 Nitroglycerin 0.4 mg Q5MINP PRN SL 05/16/25 22:30 Acetaminophen 650 mg Q6HP PRN GT 05/17/25 11:45 05/26/25 07:38 650 MG Ipratropium [place] 0.5 mg Q6HR NEB 05/17/25 12:00 05/26/25 17:50 0.5 MG Budesonide 0.5 mg BID NEB 05/17/25 22:00 05/26/25 12:16 0.5 MG Enteral Nutritional Formula 1,000 ml 30ML/HR GT 05/18/25 14:30 Aspirin 81 mg DAILY PO 05/20/25 10:00 05/26/25 09:33 81 MG Ertapenem 1 gm/ Sodium Chloride 50 ml @ 100 mls/hr DAILY@1200 IV 05/20/25 12:00 05/26/25 11:36 100 MLS/HR Lactulose 30 ml BID PO 05/21/25 10:00 05/24/25 21:26 30 ML Norepinephrine Bitartrate 250 ml @ 1.875 mls/ hr Q24H IV 05/21/25 11:00 05/26/25 10:24 26.25 MLS/HR Methylprednisolone Sodium Succinate 40 mg BID IV 05/21/25 22:00 05/26/25 09:33 40 MG Enoxaparin Sodium 40 mg DAILY SC 05/22/25 10:00 05/26/25 09:33 40 MG Levalbuterol HCl 1.25 mg Q6HR NEB 05/26/25 12:00 05/26/25 17:50 1.25 MG Examination Female patient lying in the bed comfortably, extubated, following commands, no acute distress General: Low-grade fever, palor, mucosae are moist Cardiovascular: Tachycardia but Regular S1 and S2. No murmurs, gallops or rubs. No JVD elevation. 1+ Pitting pedal edema Respiratory: Decreased breath sounds in the lower lobes, no wheezing heard Abdomen: Soft, nontender, nondistended, normoactive bowel sounds, no rebound tenderness, no organomegaly, no masses Genitourinary: Deferred MSK/skin: Skin is dry and warm laboratory and microbiology Laboratory Tests 05/26/25 03:06 Test 05/26/25 03:06 Range/Units Serum Glucose 146 H 74-106 mg/dL Microbiology Date/Time Source Procedure Growth Status 05/21/25 14:50 Urine - Walter [place] Urine Culture - Final Complete 05/20/25 20:05 Blood Blood Culture - Final NO GROWTH AFTER 5 DAYS OF INCUBATION. Complete 05/17/25 01:30 Nose MRSA Screen - Final Complete 05/16/25 22:02 Sputum Gram Stain - Final Resulted 05/16/25 22:02 Sputum Respiratory Culture - Preliminary Resulted Labs and/or images reviewed: Labs reviewed by me, Image(s) reviewed by me Problem List/Assessment/Plan Problem List/Assessment/Plan NEURO: Chronic vessel ischemic disease Duchenne myotonic dystrophy CT head shows chronic vessel ischemic disease. No acute intracranial abnormality. CARDIOVASCULAR: Status post cardiac arrest Hypotension requiring pressor support NSTEMI likely type 1 Septic Shock secondary to pneumonia Heart failure with reduced ejection fraction Rule out ischemic cardiomyopathy Dyslipidemia Status post surgical aortic valve replacement 2023 Cardiology: Status post left heart catheterization, continue aspirin and atorvastatin Left heart catheterization showed Ventriculography in the SINGH projection shows an EF of about 25-30%. There is anterior apical and inferior apical hypokinesis and anterior and inferior mid and basal akinesis. This is an unusual presentation with we will be considered the reverse characteristics of a takotsubo syndrome. Lovenox decreased to 50 mg sc daily. Patient does not take any blood thinners at home. CPAP trial in a.m.. Echocardiogram goals left ventricular ejection fraction 25 20% Aspirin 81 mg daily, atorvastatin 40 mg p.o. HS daily Lovenox 1 mg/kg b.i.d. PULMONARY: Acute on chronic hypoxic respiratory failure status post intubation 05/16 extubation 05/26 Acute COPD exacerbation Chronic oxygen dependence Possible gram positive/Gram-negative pneumonia Former nicotine dependence 7.1 x 3.8 cm lobulated opacity - rounded atelectasis vs loculated effusion Continue IV vancomycin, IV ertapenem, Solu-Medrol 60 b.i.d. Ipratropium, albuterol, budesonide nebulized treatments Zosyn switched to IV ertapenem 05/19 CT chest without contrast shows 7.1 x 3.8 cm lobulated opacity in the right lower lobe. Bilateral dependent atelectasis, [id number]-[id number]-[id number]-left. Large right lower lobe lobulated opacity favored to reflect an infectious / inflammatory etiology. Doubt malignancy given size and no definite right lower lobe pulmonary nodules appreciated on 09/08/2024. Mildly prominent mediastinal nodes favored reactive. Centrilobular emphysema. BiPAP nocturnal 08/21 GASTROINTESTINAL: Transaminitis Ultrasound Mildly dilated 7.5 mm common duct. Please correlate with laboratory values GENITOURINARY: Complicated Klebsiella ESBL cystitis History of ESBL UTI IV ertapenem HEMATOLOGY: Unspecified myeloproliferative disorder Leukocytosis Thrombocytosis CBC daily METABOLIC: ? Euthyroid sick syndrome Monitor INFECTIOUS DISEASE: Septic shock likely due to pneumonia ESBL UTI Zosyn switched to IV ertapenem 05/19 Repeat cultures, 05/26 pending DIET: Tube feedings DVT prophylax: 1 mg/kg twice daily GI prophylaxis: Famotidine 20 twice daily Bowel regimen: Lactulose bid Code status: Full code LINES/DRAINS/ACCESS: IV access: Right IJ CVC 05/17 discontinued, PICC line 05/26 Drips: Off Versed fentanyl, on Levophed 12 mcg Walter catheter: 05/16 DISPOSITION: ICU Patient's status discussed with patient's son and daughter at bedside Critical care time spent more than 83 minutes, including CPAP trial, extubation, patient care, chart review, and updating the family. Excluding any procedures Case discussed with Dr. Kern Plan discussed with: Daughter, Son My Orders My Orders Orders - GILLIAN MUSA Procedure Category Date Status Time Chest Xray 1 View XY 05/26/25 Resulted 04:00 Abg W/ Co-Ox RT 05/26/25 Logged 04:00 Levalbuterol Hcl PHA 05/26/25 In Process (Xopenex Medneb) 12:00 Blood Culture HANSEL 05/26/25 In Process 08:39 Abg W/ Co-Ox RT 05/26/25 Logged 09:40 * Picc Line Consult CONS 05/26/25 Transmitted 13:13 Bipap/Cpap For Sleep RT 05/26/25 Logged Apnea 15:16 Respiratory Culture HANSEL 05/26/25 Logged W/ Gs 15:33 Routine Bacterial HANSEL 05/26/25 Logged Culture 15:33 Dietary Evaluation Review Comments: 1) If patient remains NPO > 7 days, consider EN/TPN to meet at least 75% of estimated energy needs 2) If GI is preferred, consider Jevity 1.2 @ 35 mL/hr goal rate as tolerated. Flush with 200 mL free H2O Q6H. EN regimen will provide 1008 kcals, 47g Pro, 1478 mL free H2O (including flushes) per 24 hrs. Goal rate will meet ~97% estimated energy needs and 64% estimated protein needs 3) Advanced to regular diet when medically feasible, pending ST approval 4) Follow-up with pulmonology 5) Continue to monitor I&O, labs, and skin integrity Expected Outcomes/Goals: 1) labs to improve 2) patient to receive nutritional support within 7 days of NPO status 3) diet to advance 4) f/u in 2-3 days Date of Service: May 26, 2025 Billing Provider: FAREED KERN MD Common Visit Codes: 74814-[id number] CARE 30-74 MIN, [id number] CARE-EACH +30MIN GILLIAN MUSA May 26, 2025 18:25 FAREED KERN MD May 27, 2025 15:29
[2025-05-26] MEDS: LIDOCAINE 1% (LOCAL ANESTH.) PF 5ml SDV ID ONE (19:15)
[2025-05-26] MEDS: SODIUM CHLOR 0.9% PF (SALINE LOCK) 10ML VIAL/SYR IV SCH (21:36)
[2025-05-26] MEDS: Jevity 1.2 Cal/Fiber 1 Liter GT SCH (23:50)
[2025-05-27] VITALS (109 sets, daily range): BP systolic 97–164; BP diastolic 61–105; PULSE 110–142; RESP 17–34; TEMP 97.9–100.8; O2SAT 74–100
[2025-05-27 04:28] LABS: Hematocrit 40.6 % (36.0-46.0); Hemoglobin 13.5 g/dL (12.2-16.2); Mean Corpuscular Hemoglobin 30.4 pg (28.0-32.0); Mean Corpuscular Volume 91.2 fL (80.0-100.0)
[2025-05-27 04:31] LABS: Alkaline Phosphatase 78 U/L (46-116); Anion Gap 7 (5-15); BUN/Creatinine Ratio 48.0 (10.0-20.0); Calcium 9.3 mg/dL (8.7-10.4); Magnesium 2.2 mg/dL (1.6-2.6); Potassium 4.0 mmol/L (3.5-5.1)
[2025-05-27 04:56] LABS: Alanine Aminotransferase 50 U/L (7-40); Albumin 3.2 g/dL (3.2-4.8); Bilirubin, Total 1.2 mg/dL (0.2-1.0); Blood Urea Nitrogen 24 mg/dL (9-23); Carbon Dioxide 32 mmol/L (20-31); Chloride 108 mmol/L (98-107); Glucose 160 mg/dL (74-106); Sodium 147 mmol/L (136-145); Total Protein 4.7 g/dL (5.7-8.2)
[2025-05-27 05:42] LABS: Smudge Cells 5 /100 WBC; Stomatocytes Few; Total Cells Counted 100.0 (100)
--- NOTE | 2025-05-27 07:55 | DVH ---
CHEST RADIOGRAPH Indication: Follow up Technique: Single frontal view of the chest was obtained Comparison: XY CHEST XRAY 1 VIEW on DOS: 05/26/25, XY CHEST PORTABLE on DOS: 05/25/25, XY CHEST PORTABLE on DOS: 05/24/25, XY CHEST PORTABLE on DOS: 05/23/25, XY CHEST PORTABLE on DOS: 05/22/25, XY CHEST XRAY 1 V IEW on DOS: 05/26/25 FINDINGS: Lines and Tubes: enteric catheter unchanged. ET and Right CVC removed. Left PICC with tip in the S VC Lungs: Unchanged right lower lobe opacity Pleura: No effusion. No pneumothorax. Cardiomediastinal contours: Unremarkable Bones: Unremarkable IMPRESSION: 1. Removal of endotracheal tube and right central venous catheter. Interval placement left PICC. No significant interval change.
[2025-05-27] MEDS ORDERED: ACETYLCYSTEINE 20%(200MG/ML) SOL 4ML NEB SCH (08:45)
--- NOTE | 2025-05-27 10:27 | DVHPN2 ---
Progress Note - Dictate Date Seen: May 27, 2025 Medical Necessity Reason Pt with a Central, PICC or Fol: Yes The following are medically ne: PICC Line, Walter Catheter Reason for walter catheter: Strict I&O Subjective Ms. Bauman is a 64 years old right-handed female with a history of dyslipidemia, asthma, aortic stenosis, COPD, myeloproliferative disorder, myotonic muscular dystrophy, the patient was taken to the hospital with a chief complaint of shortness of breath, I have seen and examined the patient, I have talked to her nurse, eyes are open, looking from [id number], she follows her family, but not me She moves the arms, no obvious [id number] differences CBC, 05/16/2021: Respiratory acidosis, 05/17/2025: Respiratory acidosis, 05/18/25: Hypoxia, carbon dioxide retention WBC/HB/PLT/MCV, 05/16/2025: 62.5/15. 4/640/94.2, 05/17/2025: 72.6/16.1/520/91.2, 05/18/2025: 25.1/13.3/248/90.4 BUN/CR, 05/17/2025: 15/0.56 GFR, 05/17/2025: 103 Lactic acid, 05/16/25: 5.3 HGB A1c, 05/16/2025: 4.2 Troponin one high sensitivity, 05/16/2025: 1209, 2081, 4211, 05/18/2025: 7100 TBI/AST/ALT/AP, 05/17/2025: 1.8/86/25/183 TG/HDL/LDL/HDL, 05/18/2025: 198/116/54/34 KUB, 05/22/2025: Nonobstructive bowel gas pattern. Nasogastric tube tip in the stomach CT head, 05/17/2025: 1. No acute intracranial abnormality. 2. Chronic sequelae of microvascular disease CT head, 05/18/2025: No acute intracranial abnormality seen. Advanced chronic small vessel ischemic [place] CT chest, 05/21/2025: 1. Large right lower lobe lobulated opacity favored to reflect an infectious / inflammatory etiology. Doubt malignancy given size and no definite right lower lobe pulmonary nodules appreciated on 09/08/2024. 2. Mildly prominent mediastinal nodes favored reactive. 3. Centrilobular emphysema. vital signs Vital Sign Date Time Temp Pulse Resp B/P (MAP) Pulse Ox O2 Delivery O2 Flow Rate FiO2 05/27/25 08:57 100.8 05/27/25 08:00 135 34 98 Nasal Cannula* 3 32 05/27/25 07:06 142/101 Total Intake and Output 05/26/25 05/26/25 05/27/25 15:00 23:00 07:00 Intake Total 284.435 ml 255.000 ml 247.750 ml Output Total 300 ml 100 ml Balance 284.435 ml -45.000 ml 147.750 ml medications Current Medications Medications Dose Ordered Sig/Atilio Route Start Time Stop Time Status Last Admin Dose Admin Vancomycin HCl 0 ml @ 0 mls/hr UD IV 05/16/25 22:30 Famotidine 20 mg Q12HR IV 05/17/25 10:00 05/26/25 21:35 20 MG Diagnostic Test (Pha) 1 strip Q6HR 05/17/25 00:00 05/27/25 05:29 1 STRIP Insulin Human Regular Q6HR SC 05/17/25 00:00 05/27/25 05:31 4 UNITS Dextrose 50 ml UD PRN IV 05/16/25 22:30 Ondansetron HCl 4 mg Q4HP PRN IV 05/16/25 22:30 Nitroglycerin 0.4 mg Q5MINP PRN SL 05/16/25 22:30 Acetaminophen 650 mg Q6HP PRN GT 05/17/25 11:45 05/27/25 08:57 650 MG Ipratropium [place] 0.5 mg Q6HR NEB 05/17/25 12:00 05/27/25 06:41 0.5 MG Budesonide 0.5 mg BID NEB 05/17/25 22:00 05/27/25 06:41 0.5 MG Enteral Nutritional Formula 1,000 ml 30ML/HR GT 05/18/25 14:30 05/26/25 23:50 1,000 ML Aspirin 81 mg DAILY PO 05/20/25 10:00 05/26/25 09:33 81 MG Ertapenem 1 gm/ Sodium Chloride 50 ml @ 100 mls/hr DAILY@1200 IV 05/20/25 12:00 05/26/25 11:36 100 MLS/HR Lactulose 30 ml BID PO 05/21/25 10:00 05/26/25 21:35 30 ML Norepinephrine Bitartrate 250 ml @ 1.875 mls/ hr Q24H IV 05/21/25 11:00 05/26/25 22:57 13.125 MLS/HR Methylprednisolone Sodium Succinate 40 mg BID IV 05/21/25 22:00 05/26/25 21:35 40 MG Enoxaparin Sodium 40 mg DAILY SC 05/22/25 10:00 05/26/25 09:33 40 MG Levalbuterol HCl 1.25 mg Q6HR NEB 05/26/25 12:00 05/27/25 06:41 1.25 MG Sodium Chloride 10 ml QSHIFT@10,22 IV 05/26/25 22:00 05/26/25 21:36 10 ML Acetylcysteine 200 mg Q6HR NEB 05/27/25 12:00 objective The patient is well-nourished and well-developed with no distress. MENTAL STATUS: Subjective CRANIAL NERVES: Pupils are round and reactive, small. There conjugated eye movement. No signs of facial weakness. Motor and sensory examined in bilateral trigeminal distribution is fine SENSATION: Responses to pain stimuli. MOTOR: Normal tone in the upper and lower extremity. Normal muscle bulk. No fasciculations. Moves the arms REFLEXES: Deep tendon reflexes are symmetrical. Upgoing toes in both feet. CEREBELLAR/COORDINATION: Deferred GAIT/STATION: deferred. laboratory and microbiology Laboratory Tests 05/27/25 03:25 Test 05/27/25 03:25 Range/Units Serum Glucose 160 H 74-106 mg/dL Problem List Cardiopulmonary arrest Coma, resolved Metabolic encephalopathy Hypoxic encephalopathy Toxic encephalopathy Acute respiratory failure, improving Chronic respiratory failure/COPD on home oxygen Elevated troponin I high sensitivity/heart attack Myeloproliferative disorder Assessment/Plan Monitoring Supportive treatment ICU care Follow up labs Stabilize vitals Respiratory support Oxygen IV antibiotics Lovenox 40 mg subQ daily Aspirin 81 mg daily GI prophylaxis/famotidine More recommendation per clinical course This medical document was created using an electronic medical record system with [employer] ([employer]) dictation system. Although this document has been carefully reviewed, there may still be some phonetic and typographical errors. These areas are purely typographical due to imperfections of the software programs, and do not reflect any compromise in the patient's medical care Prognosis poor Dietary Evaluation Review Comments: 1) If patient remains NPO > 7 days, consider EN/TPN to meet at least 75% of estimated energy needs 2) If GI is preferred, consider Jevity 1.2 @ 35 mL/hr goal rate as tolerated. Flush with 200 mL free H2O Q6H. EN regimen will provide 1008 kcals, 47g Pro, 1478 mL free H2O (including flushes) per 24 hrs. Goal rate will meet ~97% estimated energy needs and 64% estimated protein needs 3) Advanced to regular diet when medically feasible, pending ST approval 4) Follow-up with pulmonology 5) Continue to monitor I&O, labs, and skin integrity Expected Outcomes/Goals: 1) labs to improve 2) patient to receive nutritional support within 7 days of NPO status 3) diet to advance 4) f/u in 2-3 days Plan discussed with: Other FÉLIX MCDOWELL MD May 27, 2025 10:27
--- NOTE | 2025-05-27 10:54 | DVH ---
RIGHT Upper Extremity Venous Duplex Clinical History: RUE SWELLING Comparison: US US GUIDED VASCULAR ACCESS on DOS: 05/26/25, US BILAT LOWER DVT on DOS: 09/06/24 Findings: Duplex Doppler evaluation of the venous system of the RIGHT lower neck and upper extremity including color Doppler and spectral/pulsed waveform analysis was performed. The internal jugular vein not visualized. The subclavian vein is patent on color Doppler evaluation without intraluminal thrombus and demonstra lynette waveform variability. The visualized portion of the brachiocephalic vein is patent on color Doppler evaluation without intr aluminal thrombus and demonstrates waveform variability. The axillary vein demonstrates appropriate compressibility and waveform variability. The brachial veins demonstrate appropriate compressibility and patency on Doppler evaluation. The basilic vein demonstrates appropriate compressibility and patency on Doppler evaluation. Thrombus in the cephalic vein. Impression: Thrombus in the right cephalic vein. If clinical concern/symptoms persist or worsen, short-interval follow-up study is suggested.
[2025-05-27] MEDS: MORPHINE SULFATE INJ 2 MG/ml SYRG IV ONE (12:04)
[2025-05-27] MEDS: VANCOMYCIN 750MG KIT 100 ML IV ONE (12:07)
[2025-05-27] MEDS: ACETYLCYSTEINE 20%(200MG/ML) SOL 4ML NEB SCH (12:14)
[2025-05-27 15:28] LABS: Base Excess 4.7 mmol/L (-2.0-3.0)
[2025-05-27] MEDS: MEROPENEM 1GM IVPB 50 ML IV ONE (15:54)
--- NOTE | 2025-05-27 16:45 | DVHPNRES ---
Progress Note Date Seen: May 27, 2025 Resident Creating Document: GILLIAN MUSA RESIDENT Medical Necessity Reason Pt with a Central, PICC or Fol: Yes The following are medically ne: PICC Line, Walter Catheter Reason for walter catheter: Strict I&O Subjective Review of Systems This is a 64-year-old female with COPD on 3 L home oxygen, surgical aortic valve replacement 03/2024, myotonic muscle dystrophy, former nicotine dependence, hyperlipidemia, unspecified myeloproliferative disorder who presented to the ER on 05/16 for the evaluation of shortness of breaths. Per son at the bedside, patient recently lost her dog and was very emotional under stress, she started experiencing shortness of breaths for the past day, associated with wheezing, on arrival to the ER patient was saturating 70% on room air, Solu-Medrol, magnesium was given to the patient, venous pCO2 was 119, WBC count 62, she had increased workup breathing and therefore patient was intubated 05/16 at around 11:00 p.m., blood pressure was 70/22 following intubation patient underwent cardiac arrest, CPR was resumed for 10 minutes-2 epis and 2 bicarb pushes were given to the patient. No defibrillation. Following that patient has been on vanc/Zosyn/azithromycin/Solu-Medrol 60 IV b.i.d./Versed/fentanyl/Levophed. Blood cultures preliminary negative, respiratory culture showing phlegm Lantus yeast, Gram-positive cocci, urine culture growing 1 lac Gram-negative rods, CT head was negative, troponin 1200 increasing to 7100, decreasing to 4500. BNP on arrival 809, lactic acidosis. Past medical/surgical history COPD on 3 L home oxygen, surgical aortic valve replacement 03/2024, myotonic muscle dystrophy, former nicotine dependence, hyperlipidemia, unspecified myeloproliferative disorder, hysterectomy, Home medication: Aspirin, prednisolone, atorvastatin , Trelegy inhaler Social history: Quit smoking 6 years back, uses a cane to ambulate. Program Manager Transportation Dr. 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 Payton 05/19, Patient seen and examined in 112, sedation vacation was completed this morning, patient responded to commands by opening her eyes overnight 100.2 F low-grade fever, blood pressure 87 systolic to 121 systolic, 30% FiO2, urine output 700, prelim EF 20%, cardiology recommends left heart catheterization tomorrow. 05/20-patient seen and examined, chest x-ray shows right lower lobe opacity mixed respiratory acidosis with metabolic alkalosis, left heart catheterization today. WBC increased to twenty-seven, liver ultrasound shows Mildly dilated 7.5 mm common duct. Please correlate with laboratory values and consider MRCP if warranted. LFTs unremarkable. One set of blood culture positive for gram- positive cocci in clusters, patient on vanc. Re 05/21 -hypoactive bowel sounds, systolic murmur over femoral site of catheterization, no bleeding, no erythema, no swelling. Solu-Medrol decreased to 40 mg IV b.i.d., sedation turned off. On Levophed. CT chest without contrast shows 7.1 x 3.8 cm lobulated opacity in the right lower lobe. Bilateral dependent atelectasis, [id number]-left. Large right lower lobe lobulated opacity favored to reflect an infectious / inflammatory etiology. Doubt malignancy given size and no definite right lower lobe pulmonary nodules appreciated on 09/08/2024. Mildly prominent mediastinal nodes favored reactive. Centrilobular emphysema. Left heart catheterization showed Ventriculography in the SINGH projection shows an EF of about 25-30%. There is anterior apical and inferior apical hypokinesis and anterior and inferior mid and basal akinesis. This is an unusual presentation with we will be considered the reverse characteristics of a takotsubo syndrome. Lovenox decreased to 50 mg sc daily. Patient does not take any blood thinners at home. CPAP trial in a.m.. 05/22 - versed was off overnight, pt agitated in AM, versed, fent restarted, radiologist recommending to f/u [facility] on the possible rounded atelectasis, no intervention. cpap tomorrow. On levophed 05/25- over weeend, patient failed CPAP trial, today CPAP trial, nif -18, patient tachycardic in the 140s, switched to AC mode. Lasix 20 mg IV twice given. CPAP trial in a.m.. 05/26-CPAP trial completed, patient alert, following commands, extubated today. On nasal cannula. BiPAP nocturnal. Discontinue triple-lumen, consultation for PICC line. Triple-lumen catheter, blood culture, sputum culture pending 05/27 - overnight refused bipap, switched ertapenam to meghann, patient alert and follows commands, full code per patient. superficial clot in RUE Objective vital signs Vital Sign Date Time Temp Pulse Resp B/P (MAP) Pulse Ox O2 Delivery O2 Flow Rate FiO2 05/27/25 16:00 28 97 Nasal Cannula* 6 44 05/27/25 16:00 123 05/27/25 15:30 100.0 117/79 (92) 212.0 Total Intake and Output 05/26/25 05/26/25 05/27/25 14:59 22:59 06:59 Intake Total 288.820 ml 264.375 ml 255.250 ml Output Total 300 ml 100 ml Balance 288.820 ml -35.625 ml 155.250 ml medications Current Medications Medications Dose Ordered Sig/Atilio Route Start Time Stop Time Status Last Admin Dose Admin Vancomycin HCl 0 ml @ 0 mls/hr UD IV 05/16/25 22:30 Famotidine 20 mg Q12HR IV 05/17/25 10:00 05/27/25 10:34 20 MG Diagnostic Test (Pha) 1 strip Q6HR 05/17/25 00:00 05/27/25 15:53 1 STRIP Insulin Human Regular Q6HR SC 05/17/25 00:00 05/27/25 05:31 4 UNITS Dextrose 50 ml UD PRN IV 05/16/25 22:30 Ondansetron HCl 4 mg Q4HP PRN IV 05/16/25 22:30 Nitroglycerin 0.4 mg Q5MINP PRN SL 05/16/25 22:30 Acetaminophen 650 mg Q6HP PRN GT 05/17/25 11:45 05/27/25 08:57 650 MG Ipratropium [place] 0.5 mg Q6HR NEB 05/17/25 12:00 05/27/25 12:14 0.5 MG Budesonide 0.5 mg BID NEB 05/17/25 22:00 05/27/25 06:41 0.5 MG Enteral Nutritional Formula 1,000 ml 30ML/HR GT 05/18/25 14:30 05/26/25 23:50 1,000 ML Aspirin 81 mg DAILY PO 05/20/25 10:00 05/27/25 10:36 81 MG Lactulose 30 ml BID PO 05/21/25 10:00 05/27/25 15:58 30 ML Norepinephrine Bitartrate 250 ml @ 1.875 mls/ hr Q24H IV 05/21/25 11:00 05/26/25 22:57 13.125 MLS/HR Methylprednisolone Sodium Succinate 40 mg BID IV 05/21/25 22:00 05/27/25 10:34 40 MG Enoxaparin Sodium 40 mg DAILY SC 05/22/25 10:00 05/27/25 10:35 40 MG Levalbuterol HCl 1.25 mg Q6HR NEB 05/26/25 12:00 05/27/25 12:14 1.25 MG Sodium Chloride 10 ml QSHIFT@10,22 IV 05/26/25 22:00 05/27/25 10:36 10 ML Acetylcysteine 200 mg Q6HR NEB 05/27/25 12:00 05/27/25 12:14 200 MG Meropenem 50 ml @ 17 mls/hr Q8HR IV 05/27/25 22:00 Examination Female patient lying in the bed comfortably, extubated, following commands, no acute distress General: Low-grade fever, palor, mucosae are moist Cardiovascular: Tachycardia but Regular S1 and S2. No murmurs, gallops or rubs. No JVD elevation. 1+ Pitting pedal edema Respiratory: Caorse b/l, Decreased breath sounds in the lower lobes, no wheezing heard Abdomen: Soft, nontender, nondistended, normoactive bowel sounds, no rebound tenderness, no organomegaly, no masses Genitourinary: Deferred MSK/skin: Skin is dry and warm Neuro: alert, full code laboratory and microbiology Laboratory Tests 05/27/25 03:25 Test 05/27/25 03:25 Range/Units Serum Glucose 160 H 74-106 mg/dL Microbiology Date/Time Source Procedure Growth Status 05/26/25 12:45 Blood Blood Culture - Preliminary NO GROWTH AFTER 24 HOURS OF INCUBATION. Resulted 05/21/25 14:50 Urine - Walter [place] Urine Culture - Final Complete 05/17/25 01:30 Nose MRSA Screen - Final Complete 05/16/25 22:02 Sputum Gram Stain - Final Resulted 05/16/25 22:02 Sputum Respiratory Culture - Preliminary Resulted Labs and/or images reviewed: Labs reviewed by me, Image(s) reviewed by me Problem List/Assessment/Plan Problem List/Assessment/Plan NEURO: Chronic vessel ischemic disease Duchenne myotonic dystrophy CT head shows chronic vessel ischemic disease. No acute intracranial abnormality. CARDIOVASCULAR: Status post cardiac arrest Hypotension requiring pressor support NSTEMI likely type 1 Septic Shock secondary to pneumonia Heart failure with reduced ejection fraction Rule out ischemic cardiomyopathy Dyslipidemia Status post surgical aortic valve replacement 2023 Cardiology: Status post left heart catheterization, continue aspirin and atorvastatin Left heart catheterization showed Ventriculography in the SINGH projection shows an EF of about 25-30%. There is anterior apical and inferior apical hypokinesis and anterior and inferior mid and basal akinesis. This is an unusual presentation with we will be considered the reverse characteristics of a takotsubo syndrome. Lovenox decreased to 50 mg sc daily. Patient does not take any blood thinners at home. Echocardiogram goals left ventricular ejection fraction 25 20% Aspirin 81 mg daily, atorvastatin 40 mg p.o. HS daily Lovenox 1 mg/kg b.i.d. PULMONARY: Acute on chronic hypoxic respiratory failure status post intubation 05/16 extubation 05/26 Acute COPD exacerbation Chronic oxygen dependence Possible gram positive/Gram-negative pneumonia Former nicotine dependence 7.1 x 3.8 cm lobulated opacity - rounded atelectasis vs loculated effusion Continue IV vancomycin, IV ertapenem, Solu-Medrol 60 b.i.d. Ipratropium, albuterol, budesonide nebulized treatments Zosyn switched to IV ertapenem 05/19, erta switched to meropenam 05/27 CT chest without contrast shows 7.1 x 3.8 cm lobulated opacity in the right lower lobe. Bilateral dependent atelectasis, kwlls-eizitbv-zera-left. Large right lower lobe lobulated opacity favored to reflect an infectious / inflammatory etiology. Doubt malignancy given size and no definite right lower lobe pulmonary nodules appreciated on 09/08/2024. Mildly prominent mediastinal nodes favored reactive. Centrilobular emphysema. BiPAP nocturnal 08/21 Acetylcystein nebulized GASTROINTESTINAL: Transaminitis Ultrasound Mildly dilated 7.5 mm common duct. Please correlate with laboratory values GENITOURINARY: Complicated Klebsiella ESBL cystitis History of ESBL UTI IV ertapenem HEMATOLOGY: Unspecified myeloproliferative disorder Leukocytosis Thrombocytosis Superficial thrombosis Thrombus in the right cephalic vein. CBC daily METABOLIC: ? Euthyroid sick syndrome Monitor INFECTIOUS DISEASE: Septic shock likely due to pneumonia ESBL UTI Zosyn switched to IV ertapenem 05/19 Repeat cultures, 05/26 pending DIET: Tube feedings DVT prophylax: 1 mg/kg twice daily GI prophylaxis: Famotidine 20 twice daily Bowel regimen: Lactulose bid Code status: Full code LINES/DRAINS/ACCESS: IV access: Right IJ CVC 05/17 discontinued, PICC line 05/26 Drips: Off Versed fentanyl, on Levophed 12 mcg Walter catheter: 05/16 DISPOSITION: ICU Patient's status discussed with patient's son and daughter at bedside Critical care time spent more than 64 minutes, including patient care, chart review, and updating the family. Excluding any procedures Case discussed with Dr. Kern Plan discussed with: Patient, Spouse, Daughter, Son My Orders My Orders Orders - GILLIAN MUSA RESIDENT Procedure Category Date Status Time Chest Xray 1 View XY 05/27/25 Resulted 04:00 Abg W/ Co-Ox RT 05/27/25 Logged 04:00 Pt Request For Service PT 05/26/25 Logged 18:26 Us Guided Vascular US 05/26/25 Resulted Access 19:11 Nursing Protocol Picc [facility] 05/26/25 In Process 19:11 Change Dressing Prn [facility] 05/26/25 In Process 19:11 Sodium Chloride Lock [facility] 05/26/25 In Process (Saline Lock Ns) 22:00 Do Not Use Picc For [facility] 05/26/25 In Process Blood Cult 19:11 May Draw Blood From [facility] 05/26/25 In Process Picc 19:11 Ok To Use Picc [facility] 05/26/25 In Process 19:11 Change Picc Dressing [facility] 05/26/25 In Process Q7 Days 19:11 Incentive Spirometry ORDERS 05/27/25 Transmitted Q 1hr 08:43 Covid19 Antigen [facility] 05/27/25 Logged Rapid Influenza [facility] 05/27/25 Logged 09:29 Rt Upper Dvt US 05/27/25 Resulted 09:29 Acetylcysteine PHA 05/27/25 In Process Inhalation 20% 12:00 Dietary Evaluation Review Comments: 1) If patient remains NPO > 7 days, consider EN/TPN to meet at least 75% of estimated energy needs 2) If GI is preferred, consider Jevity 1.2 @ 35 mL/hr goal rate as tolerated. Flush with 200 mL free H2O Q6H. EN regimen will provide 1008 kcals, 47g Pro, 1478 mL free H2O (including flushes) per 24 hrs. Goal rate will meet ~97% estimated energy needs and 64% estimated protein needs 3) Advanced to regular diet when medically feasible, pending ST approval 4) Follow-up with pulmonology 5) Continue to monitor I&O, labs, and skin integrity Expected Outcomes/Goals: 1) labs to improve 2) patient to receive nutritional support within 7 days of NPO status 3) diet to advance 4) f/u in 2-3 days Date of Service: May 27, 2025 Billing Provider: FAREED KERN MD Common Visit Codes: [id number] CARE 30-74 MIN GILLIAN MUSA RESIDENT May 27, 2025 16:45 FAREED KERN MD May 28, 2025 11:53
[2025-05-27] MEDS: MEROPENEM 1GM IVPB 50 ML IV SCH (22:13)
[2025-05-28] VITALS (77 sets, daily range): BP systolic 81–138; BP diastolic 49–101; PULSE 108–135; RESP 17–37; TEMP 92.5–100.4; O2SAT 72–100
[2025-05-28 03:57] LABS: Anion Gap 9 (5-15); Potassium 3.9 mmol/L (3.5-5.1)
[2025-05-28 03:59] LABS: Calcium 9.5 mg/dL (8.7-10.4)
[2025-05-28 04:04] LABS: BUN/Creatinine Ratio 60.0 (10.0-20.0); Blood Urea Nitrogen 27 mg/dL (9-23); Carbon Dioxide 32 mmol/L (20-31); Chloride 110 mmol/L (98-107); Glucose 148 mg/dL (74-106); Sodium 151 mmol/L (136-145)
[2025-05-28 04:05] LABS: Hematocrit 39.9 % (36.0-46.0); Hemoglobin 13.0 g/dL (12.2-16.2); Mean Corpuscular Hemoglobin 29.8 pg (28.0-32.0); Mean Corpuscular Volume 91.5 fL (80.0-100.0)
[2025-05-28 05:15] LABS: Total Cells Counted 100.0 (100)
[2025-05-28] MEDS: FREE WATER GT SCH (10:23)
--- NOTE | 2025-05-28 11:40 | DVH ---
Bilateral lower extremity venous duplex Clinical History: r/o dvt Comparison: US RT UPPER DVT on DOS: 05/27/25, US US GUIDED VASCULAR ACCESS on DOS: 05/26/25, US BILAT LO WER DVT on DOS: 09/06/24 Findings: Duplex Doppler evaluation of the deep venous systems of both lower extremities from the common femora l veins to the popliteal veins including color Doppler and spectral/pulsed waveform analysis was perf ormed. RIGHT SIDE: The common femoral vein demonstrates appropriate compressibility and waveform variability. There is compressibility/patency of the great saphenous vein at the proximal thigh. The femoral vein demonstrates appropriate compressibility and waveform variability. The deep femoral vein demonstrates appropriate compressibility and waveform variability. The popliteal vein demonstrates appropriate compressibility and waveform variability. There is normal compressibility at the tibioperoneal trunk. 4cm right inguinal lymph node. LEFT SIDE: The common femoral vein demonstrates appropriate compressibility and waveform variability. There is compressibility/patency of the great saphenous vein at the proximal thigh. The femoral vein demonstrates appropriate compressibility and waveform variability. The deep femoral vein demonstrates appropriate compressibility and waveform variability. The popliteal vein demonstrates appropriate compressibility and waveform variability. There is normal compressibility at the tibioperoneal trunk. IMPRESSION: No right or left femoropopliteal venous thrombosis. If clinical concern/symptoms persist or worsen, short-interval follow-up study is suggested. END IMPRESSION:
[2025-05-28] MEDS: VANCOMYCIN 750MG KIT 100 ML IV ONE (13:10)
--- NOTE | 2025-05-28 13:27 | DVH ---
INDICATION: ngt placement TECHNIQUE: Single frontal view of the chest was obtained COMPARISON: XY CHEST XRAY 1 VIEW on DOS: 05/27/25, XY CHEST XRAY 1 VIEW on DOS: 05/26/25, XY CHEST GARRETT BLE on DOS: 05/25/25, XY CHEST PORTABLE on DOS: 05/24/25, XY CHEST PORTABLE on DOS: 05/23/25, XY CHEST XRAY 1 VIEW on DOS: 05/27/25 FINDINGS: Lines and tubes: NG tube unchanged. Left PICC tip in the SVC Lungs: Unchanged right lower lobe opacity Pleura: No effusion. No pneumothorax. Cardiomediastinal contours: Unremarkable Bones: Unremarkable IMPRESSION: 1. No significant interval change.
--- NOTE | 2025-05-28 17:57 | DVHPNRES ---
Progress Note Date Seen: May 28, 2025 Resident Creating Document: GILLIAN MUSA RESIDENT Medical Necessity Reason Pt with a Central, PICC or Fol: Yes The following are medically ne: PICC Line, Walter Catheter Reason for walter catheter: Strict I&O Subjective Review of Systems This is a 64-year-old female with COPD on 3 L home oxygen, surgical aortic valve replacement 03/2024, myotonic muscle dystrophy, former nicotine dependence, hyperlipidemia, unspecified myeloproliferative disorder who presented to the ER on 05/16 for the evaluation of shortness of breaths. Per son at the bedside, patient recently lost her dog and was very emotional under stress, she started experiencing shortness of breaths for the past day, associated with wheezing, on arrival to the ER patient was saturating 70% on room air, Solu-Medrol, magnesium was given to the patient, venous pCO2 was 119, WBC count 62, she had increased workup breathing and therefore patient was intubated 05/16 at around 11:00 p.m., blood pressure was 70/22 following intubation patient underwent cardiac arrest, CPR was resumed for 10 minutes-2 epis and 2 bicarb pushes were given to the patient. No defibrillation. Following that patient has been on vanc/Zosyn/azithromycin/Solu-Medrol 60 IV b.i.d./Versed/fentanyl/Levophed. Blood cultures preliminary negative, respiratory culture showing phlegm Lantus yeast, Gram-positive cocci, urine culture growing 1 lac Gram-negative rods, CT head was negative, troponin 1200 increasing to 7100, decreasing to 4500. BNP on arrival 809, lactic acidosis. Past medical/surgical history COPD on 3 L home oxygen, surgical aortic valve replacement 03/2024, myotonic muscle dystrophy, former nicotine dependence, hyperlipidemia, unspecified myeloproliferative disorder, hysterectomy, Home medication: Aspirin, prednisolone, atorvastatin , Trelegy inhaler Social history: Quit smoking 6 years back, uses a cane to ambulate. 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 Payton 05/19, Patient seen and examined in 112, sedation vacation was completed this morning, patient responded to commands by opening her eyes overnight 100.2 F low-grade fever, blood pressure 87 systolic to 121 systolic, 30% FiO2, urine output 700, prelim EF 20%, cardiology recommends left heart catheterization tomorrow. 05/20-patient seen and examined, chest x-ray shows right lower lobe opacity mixed respiratory acidosis with metabolic alkalosis, left heart catheterization today. WBC increased to twenty-seven, liver ultrasound shows Mildly dilated 7.5 mm common duct. Please correlate with laboratory values and consider MRCP if warranted. LFTs unremarkable. One set of blood culture positive for gram- positive cocci in clusters, patient on vanc. Re 05/21 -hypoactive bowel sounds, systolic murmur over femoral site of catheterization, no bleeding, no erythema, no swelling. Solu-Medrol decreased to 40 mg IV b.i.d., sedation turned off. On Levophed. CT chest without contrast shows 7.1 x 3.8 cm lobulated opacity in the right lower lobe. Bilateral dependent atelectasis, [id number]-left. Large right lower lobe lobulated opacity favored to reflect an infectious / inflammatory etiology. Doubt malignancy given size and no definite right lower lobe pulmonary nodules appreciated on 09/08/2024. Mildly prominent mediastinal nodes favored reactive. Centrilobular emphysema. Left heart catheterization showed Ventriculography in the SINGH projection shows an EF of about 25-30%. There is anterior apical and inferior apical hypokinesis and anterior and inferior mid and basal akinesis. This is an unusual presentation with we will be considered the reverse characteristics of a takotsubo syndrome. Lovenox decreased to 50 mg sc daily. Patient does not take any blood thinners at home. CPAP trial in a.m.. 05/22 - versed was off overnight, pt agitated in AM, versed, fent restarted, radiologist recommending to f/u [facility] imaging on the possible rounded atelectasis, no intervention. cpap tomorrow. On levophed 05/25- over weeend, patient failed CPAP trial, today CPAP trial, nif -18, patient tachycardic in the 140s, switched to AC mode. Lasix 20 mg IV twice given. CPAP trial in a.m.. 05/26-CPAP trial completed, patient alert, following commands, extubated today. On nasal cannula. BiPAP nocturnal. Discontinue triple-lumen, consultation for PICC line. Triple-lumen catheter, blood culture, sputum culture pending 05/27 - overnight refused bipap, switched ertapenam to meghann, patient alert and follows commands, full code per patient. superficial clot in RUE 05/28-overnight BiPAP, low-grade fever, DC Lasix, free water 150 q.6 started through NG tube. Hypernatremia low urine output. Patient alert, no active complaint. Lower extremity Doppler negative. Objective vital signs Vital Sign Date Time Temp Pulse Resp B/P (MAP) Pulse Ox O2 Delivery O2 Flow Rate FiO2 05/28/25 16:00 112 05/28/25 16:00 23 100 Nasal Cannula* 3 32 05/28/25 14:31 99.7 121/72 (88) 211.5 Total Intake and Output 05/27/25 05/27/25 05/28/25 14:59 22:59 06:59 Intake Total 155.625 ml 300 ml 260 ml Output Total 100 ml 200 ml Balance 155.625 ml 200 ml 60 ml medications Current Medications Medications Dose Ordered Sig/Atilio Route Start Time Stop Time Status Last Admin Dose Admin Vancomycin HCl 0 ml @ 0 mls/hr UD IV 05/16/25 22:30 Famotidine 20 mg Q12HR IV 05/17/25 10:00 05/28/25 10:23 20 MG Diagnostic Test (Pha) 1 strip Q6HR 05/17/25 00:00 05/28/25 13:02 1 STRIP Insulin Human Regular Q6HR SC 05/17/25 00:00 05/28/25 05:47 2 UNITS Dextrose 50 ml UD PRN IV 05/16/25 22:30 Ondansetron HCl 4 mg Q4HP PRN IV 05/16/25 22:30 Nitroglycerin 0.4 mg Q5MINP PRN SL 05/16/25 22:30 Acetaminophen 650 mg Q6HP PRN GT 05/17/25 11:45 05/27/25 08:57 650 MG Ipratropium [place] 0.5 mg Q6HR NEB 05/17/25 12:00 05/28/25 12:46 0.5 MG Budesonide 0.5 mg BID NEB 05/17/25 22:00 05/28/25 10:37 0.5 MG Enteral Nutritional Formula 1,000 ml 30ML/HR GT 05/18/25 14:30 05/26/25 23:50 1,000 ML Aspirin 81 mg DAILY PO 05/20/25 10:00 05/28/25 13:50 81 MG Lactulose 30 ml BID PO 05/21/25 10:00 05/27/25 22:14 30 ML Norepinephrine Bitartrate 250 ml @ 1.875 mls/ hr Q24H IV 05/21/25 11:00 05/26/25 22:57 13.125 MLS/HR Methylprednisolone Sodium Succinate 40 mg BID IV 05/21/25 22:00 05/28/25 10:22 40 MG Enoxaparin Sodium 40 mg DAILY SC 05/22/25 10:00 05/28/25 10:24 40 MG Levalbuterol HCl 1.25 mg Q6HR NEB 05/26/25 12:00 05/28/25 12:46 1.25 MG Sodium Chloride 10 ml QSHIFT@10,22 IV 05/26/25 22:00 05/28/25 10:22 10 ML Acetylcysteine 200 mg Q6HR NEB 05/27/25 12:00 05/28/25 12:46 200 MG Meropenem 50 ml @ 17 mls/hr Q8HR IV 05/27/25 22:00 05/28/25 14:23 17 MLS/HR Purified Water 150 ml Q6HR GT 05/28/25 08:30 05/28/25 13:50 150 ML Examination Female patient lying in the bed comfortably, following commands, no acute distress General: Low-grade fever, palor, mucosae are moist Cardiovascular: Tachycardia but Regular S1 and S2. No murmurs, gallops or rubs. No JVD elevation. 1+ Pitting pedal edema Respiratory: Caorse b/l, Decreased breath sounds in the lower lobes, no wheezing heard Abdomen: Soft, nontender, nondistended, normoactive bowel sounds, no rebound tenderness, no organomegaly, no masses Genitourinary: Deferred MSK/skin: Skin is dry and warm Neuro: alert, full code laboratory and microbiology Laboratory Tests 05/28/25 02:55 Test 05/28/25 02:55 Range/Units Serum Glucose 148 H 74-106 mg/dL Microbiology Date/Time Source Procedure Growth Status 05/26/25 23:23 Catheter Tip Aerobic Culture - Preliminary Resulted 05/26/25 12:45 Blood Blood Culture - Preliminary NO GROWTH AFTER 48 HOURS OF INCUBATION. Resulted 05/21/25 14:50 Urine - Walter [place] Urine Culture - Final Complete 05/16/25 22:02 Sputum Gram Stain - Final Resulted 05/16/25 22:02 Sputum Respiratory Culture - Preliminary Resulted Labs and/or images reviewed: Labs reviewed by me, Image(s) reviewed by me Problem List/Assessment/Plan Problem List/Assessment/Plan NEURO: Chronic vessel ischemic disease Duchenne myotonic dystrophy CT head shows chronic vessel ischemic disease. No acute intracranial abnormality. CARDIOVASCULAR: Status post cardiac arrest Hypotension requiring pressor support NSTEMI likely type 1 Septic Shock secondary to pneumonia Heart failure with reduced ejection fraction Rule out ischemic cardiomyopathy Dyslipidemia Status post surgical aortic valve replacement 2023 Cardiology: Status post left heart catheterization, continue aspirin and atorvastatin Left heart catheterization showed Ventriculography in the SINGH projection shows an EF of about 25-30%. There is anterior apical and inferior apical hypokinesis and anterior and inferior mid and basal akinesis. This is an unusual presentation with we will be considered the reverse characteristics of a takotsubo syndrome. Lovenox decreased to 50 mg sc daily. Patient does not take any blood thinners at home. Echocardiogram goals left ventricular ejection fraction 25 20% Aspirin 81 mg daily, atorvastatin 40 mg p.o. HS daily Lovenox 1 mg/kg b.i.d. PULMONARY: Acute on chronic hypoxic respiratory failure status post intubation 05/16 extubation 05/26 Acute COPD exacerbation Chronic oxygen dependence Possible gram positive/Gram-negative pneumonia Former nicotine dependence 7.1 x 3.8 cm lobulated opacity - rounded atelectasis vs loculated effusion Continue IV vancomycin, IV ertapenem, Solu-Medrol 40 b.i.d., IV ertapenem switched to IV meropenem 05/27 Ipratropium, albuterol, budesonide nebulized treatments Zosyn switched to IV ertapenem 05/19, erta switched to meropenam 05/27 CT chest without contrast shows 7.1 x 3.8 cm lobulated opacity in the right lower lobe. Bilateral dependent atelectasis, [id number]-[id number]-[id number]-left. Large right lower lobe lobulated opacity favored to reflect an infectious / inflammatory etiology. Doubt malignancy given size and no definite right lower lobe pulmonary nodules appreciated on 09/08/2024. Mildly prominent mediastinal nodes favored reactive. Centrilobular emphysema. BiPAP nocturnal 08/21 Acetylcystein nebulized GASTROINTESTINAL: Transaminitis Ultrasound Mildly dilated 7.5 mm common duct. Please correlate with laboratory values GENITOURINARY: Complicated Klebsiella ESBL cystitis History of ESBL UTI IV ertapenem, switched to IV meropenem 05/27 HEMATOLOGY: Unspecified myeloproliferative disorder Leukocytosis Thrombocytosis Superficial thrombosis Thrombus in the right cephalic vein. CBC daily METABOLIC: ? Euthyroid sick syndrome Monitor INFECTIOUS DISEASE: Septic shock likely due to pneumonia ESBL UTI Zosyn switched to IV ertapenem 05/19 Repeat cultures, 05/26 pending DIET: Tube feedings DVT prophylax: 1 mg/kg twice daily GI prophylaxis: Famotidine 20 twice daily Bowel regimen: Lactulose bid Code status: Full code LINES/DRAINS/ACCESS: IV access: Right IJ CVC 05/17 discontinued, PICC line 05/26 Drips: Off Versed fentanyl, on Levophed 12 mcg Walter catheter: 05/16 DISPOSITION: ICU Patient's status discussed with patient's son and daughter at bedside Critical care time spent more than 54 minutes, including patient care, chart review, and updating the family. Excluding any procedures Case discussed with Dr. Kern Plan discussed with: Patient, Daughter, Son My Orders My Orders Orders - GILLIAN MUSA RESIDENT Procedure Category Date Status Time Free Water PHA 05/28/25 In Process 08:30 Bilat Lower Dvt US 05/28/25 Resulted 09:30 Chest Portable XY 05/28/25 Resulted 10:35 Dietary Evaluation Review Comments: 1) If patient remains NPO > 7 days, consider EN/TPN to meet at least 75% of estimated energy needs 2) If GI is preferred, consider Jevity 1.2 @ 35 mL/hr goal rate as tolerated. Flush with 200 mL free H2O Q6H. EN regimen will provide 1008 kcals, 47g Pro, 1478 mL free H2O (including flushes) per 24 hrs. Goal rate will meet ~97% estimated energy needs and 64% estimated protein needs 3) Advanced to regular diet when medically feasible, pending ST approval 4) Follow-up with pulmonology 5) Continue to monitor I&O, labs, and skin integrity Expected Outcomes/Goals: 1) labs to improve 2) patient to receive nutritional support within 7 days of NPO status 3) diet to advance 4) f/u in 2-3 days Date of Service: May 28, 2025 Billing Provider: FAREED KERN MD Common Visit Codes: 41755-[id number] CARE 30-74 MIN GILLIAN MUSA RESIDENT May 28, 2025 17:57 FAREED KERN MD May 30, 2025 11:54
--- NOTE | 2025-05-28 23:09 | DVHPN2 ---
Progress Note - Dictate Date Seen: May 28, 2025 Medical Necessity Reason Pt with a Central, PICC or Fol: Yes The following are medically ne: PICC Line, Walter Catheter Reason for walter catheter: Strict I&O Subjective Ms. Bauman is a 64 years old right-handed female with a history of dyslipidemia, asthma, aortic stenosis, COPD, myeloproliferative disorder, myotonic muscular dystrophy, the patient was taken to the hospital with a chief complaint of shortness of breath, I have seen and examined the patient, I have talked to her nurse, eyes are open, looking from [id number], he is oriented to person place, she knows year, follows verbal commands, socially appropriate She moves the arms, no obvious [id number] differences She is on BiPAP, her heart rate is in 130s CBC, 05/16/2021: Respiratory acidosis, 05/17/2025: Respiratory acidosis, 05/18/25: Hypoxia, carbon dioxide retention WBC/HB/PLT/MCV, 05/16/2025: 62.5/15. 4/640/94.2, 05/17/2025: 72.6/16.1/520/91.2, 05/18/2025: 25.1/13.3/248/90.4 BUN/CR, 05/17/2025: 15/0.56 GFR, 05/17/2025: 103 Lactic acid, 05/16/25: 5.3 HGB A1c, 05/16/2025: 4.2 Troponin one high sensitivity, 05/16/2025: 1209, 2081, 4211, 05/18/2025: 7100 TBI/AST/ALT/AP, 05/17/2025: 1.8/86/25/183 TG/HDL/LDL/HDL, 05/18/2025: 198/116/54/34 Extremity venous study, 05/27/2025: Thrombus in the right cephalic vein. If clinical concern/symptoms persist or worsen, short-interval follow-up study is suggested. KUB, 05/22/2025: Nonobstructive bowel gas pattern. Nasogastric tube tip in the stomach CT head, 05/17/2025: 1. No acute intracranial abnormality. 2. Chronic sequelae of microvascular disease CT head, 05/18/2025: No acute intracranial abnormality seen. Advanced chronic small vessel ischemic eubanks CT chest, 05/21/2025: 1. Large right lower lobe lobulated opacity favored to reflect an infectious / inflammatory etiology. Doubt malignancy given size and no definite right lower lobe pulmonary nodules appreciated on 09/08/2024. 2. Mildly prominent mediastinal nodes favored reactive. 3. Centrilobular emphysema. vital signs Vital Sign Date Time Temp Pulse Resp B/P (MAP) Pulse Ox O2 Delivery O2 Flow Rate FiO2 05/28/25 22:31 100.4 135 31 124/101 (109) 86 212.7 05/28/25 22:04 50 05/28/25 20:35 Facial BiPAP Mask 05/28/25 20:00 3 Total Intake and Output 05/27/25 05/27/25 05/28/25 15:00 23:00 07:00 Intake Total 150 ml 300 ml 260 ml Output Total 100 ml 200 ml Balance 150 ml 200 ml 60 ml medications Current Medications Medications Dose Ordered Sig/Atilio Route Start Time Stop Time Status Last Admin Dose Admin Vancomycin HCl 0 ml @ 0 mls/hr UD IV 05/16/25 22:30 Famotidine 20 mg Q12HR IV 05/17/25 10:00 05/28/25 21:46 20 MG Diagnostic Test (Pha) 1 strip Q6HR 05/17/25 00:00 05/28/25 19:44 1 STRIP Insulin Human Regular Q6HR SC 05/17/25 00:00 05/28/25 19:45 3 UNITS Dextrose 50 ml UD PRN IV 05/16/25 22:30 Ondansetron HCl 4 mg Q4HP PRN IV 05/16/25 22:30 Nitroglycerin 0.4 mg Q5MINP PRN SL 05/16/25 22:30 Acetaminophen 650 mg Q6HP PRN GT 05/17/25 11:45 05/27/25 08:57 650 MG Ipratropium [place] 0.5 mg Q6HR NEB 05/17/25 12:00 05/28/25 18:40 0.5 MG Budesonide 0.5 mg BID NEB 05/17/25 22:00 05/28/25 18:40 0.5 MG Enteral Nutritional Formula 1,000 ml 30ML/HR GT 05/18/25 14:30 05/26/25 23:50 1,000 ML Aspirin 81 mg DAILY PO 05/20/25 10:00 05/28/25 13:50 81 MG Lactulose 30 ml BID PO 05/21/25 10:00 05/27/25 22:14 30 ML Norepinephrine Bitartrate 250 ml @ 1.875 mls/ hr Q24H IV 05/21/25 11:00 05/26/25 22:57 13.125 MLS/HR Methylprednisolone Sodium Succinate 40 mg BID IV 05/21/25 22:00 05/28/25 21:46 40 MG Enoxaparin Sodium 40 mg DAILY SC 05/22/25 10:00 05/28/25 10:24 40 MG Levalbuterol HCl 1.25 mg Q6HR NEB 05/26/25 12:00 05/28/25 18:40 1.25 MG Sodium Chloride 10 ml QSHIFT@10,22 IV 05/26/25 22:00 05/28/25 21:47 10 ML Acetylcysteine 200 mg Q6HR NEB 05/27/25 12:00 05/28/25 18:40 200 MG Meropenem 50 ml @ 17 mls/hr Q8HR IV 05/27/25 22:00 05/28/25 21:46 17 MLS/HR Purified Water 150 ml Q6HR GT 05/28/25 08:30 05/28/25 19:46 150 ML objective The patient is well-nourished and well-developed with no distress. MENTAL STATUS: Subjective CRANIAL NERVES: Pupils are round and reactive, small. There conjugated eye movement. No signs of facial weakness. Motor and sensory examined in bilateral trigeminal distribution is fine SENSATION: Responses to pain stimuli. MOTOR: Normal tone in the upper and lower extremity. Normal muscle bulk. No fasciculations. Moves the arms and the legs REFLEXES: Deep tendon reflexes are symmetrical. Upgoing toes in both feet. CEREBELLAR/COORDINATION: Deferred GAIT/STATION: deferred. laboratory and microbiology Laboratory Tests 05/28/25 02:55 Test 05/28/25 02:55 Range/Units Serum Glucose 148 H 74-106 mg/dL Problem List Cardiopulmonary arrest Coma, resolved Metabolic encephalopathy Hypoxic encephalopathy Toxic encephalopathy Acute respiratory failure, improving Chronic respiratory failure/COPD on home oxygen Elevated troponin I high sensitivity/heart attack Deep venous thrombosis Myeloproliferative disorder Assessment/Plan Monitoring Supportive treatment ICU care Follow up labs Stabilize vitals Respiratory support Oxygen IV antibiotics Lovenox 40 mg subQ daily Aspirin 81 mg daily GI prophylaxis/famotidine More recommendation per clinical course This medical document was created using an electronic medical record system with [employer] dictation system. Although this document has been carefully reviewed, there may still be some phonetic and typographical errors. These areas are purely typographical due to imperfections of the software programs, and do not reflect any compromise in the patient's medical care Prognosis Critical, poor Dietary Evaluation Review Comments: 1) If patient remains NPO > 7 days, consider EN/TPN to meet at least 75% of estimated energy needs 2) If GI is preferred, consider Jevity 1.2 @ 35 mL/hr goal rate as tolerated. Flush with 200 mL free H2O Q6H. EN regimen will provide 1008 kcals, 47g Pro, 1478 mL free H2O (including flushes) per 24 hrs. Goal rate will meet ~97% estimated energy needs and 64% estimated protein needs 3) Advanced to regular diet when medically feasible, pending ST approval 4) Follow-up with pulmonology 5) Continue to monitor I&O, labs, and skin integrity Expected Outcomes/Goals: 1) labs to improve 2) patient to receive nutritional support within 7 days of NPO status 3) diet to advance 4) f/u in 2-3 days Plan discussed with: FÉLIX Farley MD May 28, 2025 23:08
[2025-05-29] VITALS (54 sets, daily range): BP systolic 90–165; BP diastolic 52–145; PULSE 101–132; RESP 17–33; TEMP 98.2–100.4; O2SAT 82–100
[2025-05-29 03:55] LABS: Hematocrit 37.8 % (36.0-46.0); Hemoglobin 12.6 g/dL (12.2-16.2); Mean Corpuscular Hemoglobin 30.6 pg (28.0-32.0); Mean Corpuscular Volume 91.8 fL (80.0-100.0)
[2025-05-29 04:10] LABS: Anion Gap 10 (5-15); BUN/Creatinine Ratio 58.5 (10.0-20.0); Calcium 9.8 mg/dL (8.7-10.4); Magnesium 2.3 mg/dL (1.6-2.6); Potassium 4.1 mmol/L (3.5-5.1)
[2025-05-29 04:11] LABS: Bilirubin, Total 1.1 mg/dL (0.2-1.0)
[2025-05-29 04:13] LABS: Alanine Aminotransferase 85 U/L (7-40); Albumin 3.1 g/dL (3.2-4.8); Alkaline Phosphatase 134 U/L (46-116); Blood Urea Nitrogen 31 mg/dL (9-23); Carbon Dioxide 32 mmol/L (20-31); Chloride 111 mmol/L (98-107); Glucose 152 mg/dL (74-106); Sodium 153 mmol/L (136-145); Total Protein 4.7 g/dL (5.7-8.2)
[2025-05-29 05:19] LABS: Nucleated Red Blood Cells % 1.0 %; Total Cells Counted 100.0 (100)
--- NOTE | 2025-05-29 05:49 | DVH ---
CHEST RADIOGRAPH Indication: F/U Technique: Single frontal view of the chest was obtained COMPARISON: XY CHEST PORTABLE on DOS: 05/28/25, XY CHEST XRAY 1 VIEW on DOS: 05/27/25, XY CHEST XRAY 1 VIEW on DOS: 05/26/25, XY CHEST PORTABLE on DOS: 05/25/25, XY CHEST PORTABLE on DOS: 05/24/25, XY CHEST POR TABLE on DOS: 05/28/25 FINDINGS: Lines and tubes: NG tube unchanged. Left PICC tip in the SVC Lungs: Unchanged right lower lobe opacity Pleura: No effusion. No pneumothorax. Cardiomediastinal contours: Unremarkable Bones: Unremarkable IMPRESSION: 1. No significant interval change.
[2025-05-29 07:34] LABS: Base Excess 2.3 mmol/L (-2.0-3.0)
[2025-05-29] MEDS: D5W 5% 250 ML IV ONE (09:45)
[2025-05-29] MEDS: LISINOPRIL 5 MG TAB PO SCH (11:11)
--- NOTE | 2025-05-29 14:46 | DVHPNRES ---
Progress Note Date Seen: May 29, 2025 Resident Creating Document: GILLIAN MUSA RESIDENT Medical Necessity Reason Pt with a Central, PICC or Fol: Yes The following are medically ne: PICC Line, Walter Catheter Reason for walter catheter: Strict I&O Subjective Review of Systems This is a 64-year-old female with COPD on 3 L home oxygen, surgical aortic valve replacement 03/2024, myotonic muscle dystrophy, former nicotine dependence, hyperlipidemia, unspecified myeloproliferative disorder who presented to the ER on 05/16 for the evaluation of shortness of breaths. Per son at the bedside, patient recently lost her dog and was very emotional under stress, she started experiencing shortness of breaths for the past day, associated with wheezing, on arrival to the ER patient was saturating 70% on room air, Solu-Medrol, magnesium was given to the patient, venous pCO2 was 119, WBC count 62, she had increased workup breathing and therefore patient was intubated 05/16 at around 11:00 p.m., blood pressure was 70/22 following intubation patient underwent cardiac arrest, CPR was resumed for 10 minutes-2 epis and 2 bicarb pushes were given to the patient. No defibrillation. Following that patient has been on vanc/Zosyn/azithromycin/Solu-Medrol 60 IV b.i.d./Versed/fentanyl/Levophed. Blood cultures preliminary negative, respiratory culture showing phlegm Lantus yeast, Gram-positive cocci, urine culture growing 1 lac Gram-negative rods, CT head was negative, troponin 1200 increasing to 7100, decreasing to 4500. BNP on arrival 809, lactic acidosis. Past medical/surgical history COPD on 3 L home oxygen, surgical aortic valve replacement 03/2024, myotonic muscle dystrophy, former nicotine dependence, hyperlipidemia, unspecified myeloproliferative disorder, hysterectomy, Home medication: Aspirin, prednisolone, atorvastatin , Trelegy inhaler Social history: Quit smoking 6 years back, uses a cane to ambulate. 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 Payton 05/19, Patient seen and examined in 112, sedation vacation was completed this morning, patient responded to commands by opening her eyes overnight 100.2 F low-grade fever, blood pressure 87 systolic to 121 systolic, 30% FiO2, urine output 700, prelim EF 20%, cardiology recommends left heart catheterization tomorrow. 05/20-patient seen and examined, chest x-ray shows right lower lobe opacity mixed respiratory acidosis with metabolic alkalosis, left heart catheterization today. WBC increased to twenty-seven, liver ultrasound shows Mildly dilated 7.5 mm common duct. Please correlate with laboratory values and consider MRCP if warranted. LFTs unremarkable. One set of blood culture positive for gram- positive cocci in clusters, patient on vanc. Re 05/21 -hypoactive bowel sounds, systolic murmur over femoral site of catheterization, no bleeding, no erythema, no swelling. Solu-Medrol decreased to 40 mg IV b.i.d., sedation turned off. On Levophed. CT chest without contrast shows 7.1 x 3.8 cm lobulated opacity in the right lower lobe. Bilateral dependent atelectasis, qejsi-gyyxjnl-emak-left. Large right lower lobe lobulated opacity favored to reflect an infectious / inflammatory etiology. Doubt malignancy given size and no definite right lower lobe pulmonary nodules appreciated on 09/08/2024. Mildly prominent mediastinal nodes favored reactive. Centrilobular emphysema. Left heart catheterization showed Ventriculography in the SINGH projection shows an EF of about 25-30%. There is anterior apical and inferior apical hypokinesis and anterior and inferior mid and basal akinesis. This is an unusual presentation with we will be considered the reverse characteristics of a takotsubo syndrome. Lovenox decreased to 50 mg sc daily. Patient does not take any blood thinners at home. CPAP trial in a.m.. 05/22 - versed was off overnight, pt agitated in AM, versed, fent restarted, radiologist recommending to f/u [facility] on the possible rounded atelectasis, no intervention. cpap tomorrow. On levophed 05/25- over weeend, patient failed CPAP trial, today CPAP trial, nif -18, patient tachycardic in the 140s, switched to AC mode. Lasix 20 mg IV twice given. CPAP trial in a.m.. 05/26-CPAP trial completed, patient alert, following commands, extubated today. On nasal cannula. BiPAP nocturnal. Discontinue triple-lumen, consultation for PICC line. Triple-lumen catheter, blood culture, sputum culture pending 05/27 - overnight refused bipap, switched ertapenam to meghann, patient alert and follows commands, full code per patient. superficial clot in RUE 05/28-overnight BiPAP, low-grade fever, DC Lasix, free water 150 q.6 started through NG tube. Hypernatremia low urine output. Patient alert, no active complaint. Lower extremity Doppler negative. 05/29 - patient a/ox2, reports no acute complaint, ST and PT eval, on NC 3L, bipapa hs, hypernatremia - free water and d5w 30cc/hr, downgraded loretta. Repeat blood cultures. Added lisinopril 2.5mg as GDMT - ef 20% Objective vital signs Vital Sign Date Time Temp Pulse Resp B/P (MAP) Pulse Ox O2 Delivery O2 Flow Rate FiO2 05/29/25 14:00 115 05/29/25 14:00 29 95 Nasal Cannula* 3 32 05/29/25 11:11 109/71 05/29/25 07:30 98.4 98.4 Total Intake and Output 05/28/25 05/28/25 05/29/25 15:00 23:00 07:00 Intake Total 740 ml 364 ml Output Total 250 ml 150 ml Balance 490 ml 214 ml medications Current Medications Medications Dose Ordered Sig/Atilio Route Start Time Stop Time Status Last Admin Dose Admin Vancomycin HCl 0 ml @ 0 mls/hr UD IV 05/16/25 22:30 Famotidine 20 mg Q12HR IV 05/17/25 10:00 05/29/25 09:41 20 MG Diagnostic Test (Pha) 1 strip Q6HR 05/17/25 00:00 05/29/25 11:33 1 STRIP Insulin Human Regular Q6HR SC 05/17/25 00:00 05/29/25 11:34 2 UNITS Dextrose 50 ml UD PRN IV 05/16/25 22:30 Ondansetron HCl 4 mg Q4HP PRN IV 05/16/25 22:30 Nitroglycerin 0.4 mg Q5MINP PRN SL 05/16/25 22:30 Acetaminophen 650 mg Q6HP PRN GT 05/17/25 11:45 05/28/25 23:11 650 MG Ipratropium [place] 0.5 mg Q6HR NEB 05/17/25 12:00 05/29/25 11:34 0.5 MG Budesonide 0.5 mg BID NEB 05/17/25 22:00 05/29/25 06:14 0.5 MG Enteral Nutritional Formula 1,000 ml 30ML/HR GT 05/18/25 14:30 05/26/25 23:50 1,000 ML Aspirin 81 mg DAILY PO 05/20/25 10:00 05/29/25 09:40 81 MG Lactulose 30 ml BID PO 05/21/25 10:00 05/29/25 09:40 30 ML Norepinephrine Bitartrate 250 ml @ 1.875 mls/ hr Q24H IV 05/21/25 11:00 05/26/25 22:57 13.125 MLS/HR Methylprednisolone Sodium Succinate 40 mg BID IV 05/21/25 22:00 05/29/25 09:41 40 MG Enoxaparin Sodium 40 mg DAILY SC 05/22/25 10:00 05/29/25 09:40 40 MG Levalbuterol HCl 1.25 mg Q6HR NEB 05/26/25 12:00 05/29/25 11:34 1.25 MG Sodium Chloride 10 ml QSHIFT@10,22 IV 05/26/25 22:00 05/29/25 09:41 10 ML Acetylcysteine 200 mg Q6HR NEB 05/27/25 12:00 05/29/25 11:34 200 MG Meropenem 50 ml @ 17 mls/hr Q8HR IV 05/27/25 22:00 05/29/25 14:00 17 MLS/HR Purified Water 150 ml Q6HR GT 05/28/25 08:30 05/29/25 09:42 150 ML Lisinopril 2.5 mg DAILY PO 05/29/25 10:00 05/29/25 11:11 2.5 MG Examination Female patient lying in the bed comfortably, following commands, no acute distress General: Low-grade fever, palor, mucosae are moist Cardiovascular: Tachycardia but Regular S1 and S2. No murmurs, gallops or rubs. No JVD elevation. 1+ Pitting pedal edema Respiratory: Caorse b/l, Decreased breath sounds in the lower lobes, no wheezing heard Abdomen: Soft, nontender, nondistended, normoactive bowel sounds, no rebound tenderness, no organomegaly, no masses Genitourinary: Deferred MSK/skin: Skin is dry and warm Neuro: alert, full code laboratory and microbiology Laboratory Tests 05/29/25 03:08 Test 05/29/25 03:08 Range/Units Serum Glucose 152 H 74-106 mg/dL Microbiology Date/Time Source Procedure Growth Status 05/26/25 23:23 Catheter Tip Aerobic Culture - Preliminary Resulted 05/26/25 12:45 Blood Blood Culture - Preliminary NO GROWTH AFTER 48 HOURS OF INCUBATION. Resulted 05/21/25 14:50 Urine - Walter [place] Urine Culture - Final Complete 05/16/25 22:02 Sputum Gram Stain - Final Resulted 05/16/25 22:02 Sputum Respiratory Culture - Preliminary Resulted Labs and/or images reviewed: Labs reviewed by me, Image(s) reviewed by me Problem List/Assessment/Plan Problem List/Assessment/Plan NEURO: Chronic vessel ischemic disease Duchenne myotonic dystrophy CT head shows chronic vessel ischemic disease. No acute intracranial abnormality. CARDIOVASCULAR: Status post cardiac arrest Hypotension requiring pressor support NSTEMI likely type 1 Septic Shock secondary to pneumonia Heart failure with reduced ejection fraction Rule out ischemic cardiomyopathy Dyslipidemia Status post surgical aortic valve replacement 2023 Cardiology: Status post left heart catheterization, continue aspirin and atorvastatin Left heart catheterization showed Ventriculography in the SINGH projection shows an EF of about 25-30%. There is anterior apical and inferior apical hypokinesis and anterior and inferior mid and basal akinesis. This is an unusual presentation with we will be considered the reverse characteristics of a takotsubo syndrome. Lovenox decreased to 50 mg sc daily. Patient does not take any blood thinners at home. Echocardiogram left ventricular ejection fraction 25 20% Aspirin 81 mg daily, atorvastatin 40 mg p.o. HS daily Lovenox 1 mg/kg b.i.d. Added lisinopril 2.5mg daily as GDMT PULMONARY: Acute on chronic hypoxic respiratory failure status post intubation 05/16 extubation 05/26 Acute COPD exacerbation Chronic oxygen dependence Possible gram positive/Gram-negative pneumonia Former nicotine dependence 7.1 x 3.8 cm lobulated opacity - rounded atelectasis vs loculated effusion Continue IV vancomycin, IV ertapenem, Solu-Medrol 40 b.i.d., IV ertapenem switched to IV meropenem 05/27 Ipratropium, albuterol, budesonide nebulized treatments Zosyn switched to IV ertapenem 05/19, erta switched to meropenam 05/27 CT chest without contrast shows 7.1 x 3.8 cm lobulated opacity in the right lower lobe. Bilateral dependent atelectasis, nulpi-lfjmpli-lpoa-left. Large right lower lobe lobulated opacity favored to reflect an infectious / inflammatory etiology. Doubt malignancy given size and no definite right lower lobe pulmonary nodules appreciated on 09/08/2024. Mildly prominent mediastinal nodes favored reactive. Centrilobular emphysema. BiPAP nocturnal 08/21 Acetylcystein nebulized GASTROINTESTINAL: Transaminitis Ultrasound Mildly dilated 7.5 mm common duct. Please correlate with laboratory values GENITOURINARY: Complicated Klebsiella ESBL cystitis History of ESBL UTI IV ertapenem, switched to IV meropenem 05/27 HEMATOLOGY: Unspecified myeloproliferative disorder Leukocytosis Thrombocytosis Superficial thrombosis Thrombus in the right cephalic vein. CBC daily METABOLIC: ? Euthyroid sick syndrome Hypernatremia free water and d5 30cc/hr Monitor INFECTIOUS DISEASE: Septic shock likely due to pneumonia ESBL UTI Zosyn switched to IV ertapenem 05/19 Repeat cultures, 05/26 negative DIET: Tube feedings DVT prophylax: lovenox daily GI prophylaxis: Famotidine 20 twice daily Bowel regimen: Lactulose bid Code status: Full code LINES/DRAINS/ACCESS: IV access: Right IJ CVC 05/17 discontinued, PICC line 05/26 Drips: Off Versed fentanyl, off Levophed Walter catheter: 05/16 ST eval pending DISPOSITION: LORETTA Patient's status discussed with patient's son and daughter at bedside Critical care time spent more than 64 minutes, including patient care, chart review, and updating the family. Excluding any procedures Case discussed with Dr. Cade Plan discussed with: Patient, Daughter, Son My Orders My Orders Orders - GILLIAN MUSA RESIDENT Procedure Category Date Status Time Chest Xray 1 View XY 05/29/25 Resulted 04:00 Abg W/ Co-Ox RT 05/29/25 Logged 04:00 D5w 5% (Dextrose 5%) PHA 05/29/25 In Process 09:45 Lisinopril Tablet PHA 05/29/25 In Process (Zestril Tablet) 10:00 Blood Culture HANSEL 05/29/25 In Process 09:44 Basic Metabolic Panel LAB 05/29/25 Logged 16:00 Transfer Orders XFER 9/12/25 Transmitted 09:47 * Swallow Request ST 05/29/25 Transmitted 12:05 Pt Request For Service PT 05/29/25 Logged 12:05 Dietary Evaluation Review Comments: 1) If patient remains NPO > 7 days, consider EN/TPN to meet at least 75% of estimated energy needs 2) If GI is preferred, consider Jevity 1.2 @ 35 mL/hr goal rate as tolerated. Flush with 200 mL free H2O Q6H. EN regimen will provide 1008 kcals, 47g Pro, 1478 mL free H2O (including flushes) per 24 hrs. Goal rate will meet ~97% estimated energy needs and 64% estimated protein needs 3) Advanced to regular diet when medically feasible, pending ST approval 4) Follow-up with pulmonology 5) Continue to monitor I&O, labs, and skin integrity Expected Outcomes/Goals: 1) labs to improve 2) patient to receive nutritional support within 7 days of NPO status 3) diet to advance 4) f/u in 2-3 days GILLIAN MUSA RESIDENT May 29, 2025 14:46
[2025-05-29 16:51] LABS: Potassium 3.8 mmol/L (3.5-5.1)
[2025-05-29 16:52] LABS: Anion Gap 9 (5-15); Carbon Dioxide 31 mmol/L (20-31)
[2025-05-29 16:53] LABS: Calcium 8.8 mg/dL (8.7-10.4)
[2025-05-29 16:55] LABS: Chloride 108 mmol/L (98-107); Sodium 148 mmol/L (136-145)
[2025-05-29 16:58] LABS: BUN/Creatinine Ratio 65.4 (10.0-20.0)
[2025-05-29 17:03] LABS: Blood Urea Nitrogen 34 mg/dL (9-23); Glucose 364 mg/dL (74-106)
[2025-05-29] MEDS: VANCOMYCIN 750MG KIT 100 ML IV SCH (17:23)
--- NOTE | 2025-05-29 19:20 | DVHPN2 ---
Progress Note - Dictate Date Seen: May 29, 2025 Medical Necessity Reason Pt with a Central, PICC or Fol: Yes The following are medically ne: PICC Line, Walter Catheter Reason for walter catheter: Strict I&O Subjective Ms. Bauman is a 64 years old right-handed female with a history of dyslipidemia, asthma, aortic stenosis, COPD, myeloproliferative disorder, myotonic muscular dystrophy, the patient was taken to the hospital with a chief complaint of shortness of breath, I have seen and examined the patient, I have talked to her nurse, eyes are open, she is oriented to person place, she knows year, follows verbal commands, socially appropriate She moves the arms, no obvious [id number] differences She looks stronger today CBC, 05/16/2021: Respiratory acidosis, 05/17/2025: Respiratory acidosis, 05/18/25: Hypoxia, carbon dioxide retention WBC/HB/PLT/MCV, 05/16/2025: 62.5/15. 4/640/94.2, 05/17/2025: 72.6/16.1/520/91.2, 05/18/2025: 25.1/13.3/248/90.4 BUN/CR, 05/17/2025: 15/0.56 GFR, 05/17/2025: 103 Lactic acid, 05/16/25: 5.3 HGB A1c, 05/16/2025: 4.2 Troponin one high sensitivity, 05/16/2025: 1209, 2081, 4211, 05/18/2025: 7100 TBI/AST/ALT/AP, 05/17/2025: 1.8/86/25/183 TG/HDL/LDL/HDL, 05/18/2025: 198/116/54/34 Extremity venous study, 05/27/2025: Thrombus in the right cephalic vein. If clinical concern/symptoms persist or worsen, short-interval follow-up study is suggested. KUB, 05/22/2025: Nonobstructive bowel gas pattern. Nasogastric tube tip in the stomach CT head, 05/17/2025: 1. No acute intracranial abnormality. 2. Chronic sequelae of microvascular disease CT head, 05/18/2025: No acute intracranial abnormality seen. Advanced chronic small vessel ischemic eubanks CT chest, 05/21/2025: 1. Large right lower lobe lobulated opacity favored to reflect an infectious / inflammatory etiology. Doubt malignancy given size and no definite right lower lobe pulmonary nodules appreciated on 09/08/2024. 2. Mildly prominent mediastinal nodes favored reactive. 3. Centrilobular emphysema. vital signs Vital Sign Date Time Temp Pulse Resp B/P (MAP) Pulse Ox O2 Delivery O2 Flow Rate FiO2 05/29/25 18:45 113 24 99 05/29/25 17:51 Nasal Cannula* 3 32 05/29/25 15:50 98.5 98.5 Total Intake and Output 05/28/25 05/28/25 05/29/25 15:00 23:00 07:00 Intake Total 740 ml 364 ml Output Total 250 ml 150 ml Balance 490 ml 214 ml medications Current Medications Medications Dose Ordered Sig/Atilio Route Start Time Stop Time Status Last Admin Dose Admin Vancomycin HCl 0 ml @ 0 mls/hr UD IV 05/16/25 22:30 Famotidine 20 mg Q12HR IV 05/17/25 10:00 05/29/25 09:41 20 MG Diagnostic Test (Pha) 1 strip Q6HR 05/17/25 00:00 05/29/25 17:08 1 STRIP Insulin Human Regular Q6HR SC 05/17/25 00:00 05/29/25 17:29 2 UNITS Dextrose 50 ml UD PRN IV 05/16/25 22:30 Ondansetron HCl 4 mg Q4HP PRN IV 05/16/25 22:30 Nitroglycerin 0.4 mg Q5MINP PRN SL 05/16/25 22:30 Acetaminophen 650 mg Q6HP PRN GT 05/17/25 11:45 05/28/25 23:11 650 MG Ipratropium [place] 0.5 mg Q6HR NEB 05/17/25 12:00 05/29/25 11:34 0.5 MG Budesonide 0.5 mg BID NEB 05/17/25 22:00 05/29/25 06:14 0.5 MG Enteral Nutritional Formula 1,000 ml 30ML/HR GT 05/18/25 14:30 05/26/25 23:50 1,000 ML Aspirin 81 mg DAILY PO 05/20/25 10:00 05/29/25 09:40 81 MG Lactulose 30 ml BID PO 05/21/25 10:00 05/29/25 09:40 30 ML Norepinephrine Bitartrate 250 ml @ 1.875 mls/ hr Q24H IV 05/21/25 11:00 05/26/25 22:57 13.125 MLS/HR Methylprednisolone Sodium Succinate 40 mg BID IV 05/21/25 22:00 05/29/25 09:41 40 MG Enoxaparin Sodium 40 mg DAILY SC 05/22/25 10:00 05/29/25 09:40 40 MG Levalbuterol HCl 1.25 mg Q6HR NEB 05/26/25 12:00 05/29/25 11:34 1.25 MG Sodium Chloride 10 ml QSHIFT@10,22 IV 05/26/25 22:00 05/29/25 09:41 10 ML Acetylcysteine 200 mg Q6HR NEB 05/27/25 12:00 05/29/25 11:34 200 MG Meropenem 50 ml @ 17 mls/hr Q8HR IV 05/27/25 22:00 05/29/25 14:00 17 MLS/HR Purified Water 150 ml Q6HR GT 05/28/25 08:30 05/29/25 17:10 150 ML Lisinopril 2.5 mg DAILY PO 05/29/25 10:00 05/29/25 11:11 2.5 MG Vancomycin HCl 100 ml @ 100 mls/hr DAILY@1700 IV 05/29/25 17:00 05/29/25 17:23 100 MLS/HR objective The patient is well-nourished and well-developed with no distress. MENTAL STATUS: Subjective CRANIAL NERVES: Pupils are round and reactive, small. There conjugated eye movement. No signs of facial weakness. Motor and sensory examined in bilateral trigeminal distribution is fine SENSATION: Okay to pinprick and light touch MOTOR: Normal tone in the upper and lower extremity. Normal muscle bulk. No fasciculations. Moves the arms and the legs REFLEXES: Deep tendon reflexes are symmetrical. CEREBELLAR/COORDINATION: Deferred GAIT/STATION: deferred. laboratory and microbiology Laboratory Tests 05/29/25 16:13 05/29/25 03:08 Test 05/29/25 16:13 Range/Units Serum Glucose 364 H 74-106 mg/dL Problem List Cardiopulmonary arrest Coma, resolved Metabolic encephalopathy Hypoxic encephalopathy Toxic encephalopathy Acute respiratory failure, improving Chronic respiratory failure/COPD on home oxygen Elevated troponin I high sensitivity/heart attack Deep venous thrombosis Myeloproliferative disorder Assessment/Plan Monitoring Supportive treatment MELISA care Follow up labs Stabilize vitals Respiratory support Oxygen IV antibiotics Lovenox 40 mg subQ daily Aspirin 81 mg daily GI prophylaxis/famotidine More recommendation per clinical course This medical document was created using an electronic medical record system with [employer] dictation system. Although this document has been carefully reviewed, there may still be some phonetic and typographical errors. These areas are purely typographical due to imperfections of the software programs, and do not reflect any compromise in the patient's medical care Prognosis poor Dietary Evaluation Review Comments: 1) If patient remains NPO > 7 days, consider EN/TPN to meet at least 75% of estimated energy needs 2) If GI is preferred, consider Jevity 1.2 @ 35 mL/hr goal rate as tolerated. Flush with 200 mL free H2O Q6H. EN regimen will provide 1008 kcals, 47g Pro, 1478 mL free H2O (including flushes) per 24 hrs. Goal rate will meet ~97% estimated energy needs and 64% estimated protein needs 3) Advanced to regular diet when medically feasible, pending ST approval 4) Follow-up with pulmonology 5) Continue to monitor I&O, labs, and skin integrity Expected Outcomes/Goals: 1) labs to improve 2) patient to receive nutritional support within 7 days of NPO status 3) diet to advance 4) f/u in 2-3 days Plan discussed with: Other FÉLIX MCDOWELL MD May 29, 2025 19:20
[2025-05-29] MEDS: HYDROcodone-ACET 5/325MG TAB PO ONE (20:50)
[2025-05-30] VITALS (35 sets, daily range): BP systolic 63–118; BP diastolic 46–98; PULSE 20–121; RESP 13–27; TEMP 97.9–99.2; O2SAT 70–100
[2025-05-30] MEDS: LEVALBUTEROL HCL 1.25 MG/3 ML NEB ONE (00:15)
[2025-05-30] MEDS: IPRATROPIUM BROM 0.5 MG/2.5ML INH SOL ONE (00:15)
[2025-05-30] MEDS: ACETYLCYSTEINE 20%(200MG/ML) SOL 4ML ONE (00:15)
[2025-05-30 07:18] LABS: Hematocrit 35.1 % (36.0-46.0); Hemoglobin 11.5 g/dL (12.2-16.2); Mean Corpuscular Hemoglobin 30.7 pg (28.0-32.0); Mean Corpuscular Volume 93.4 fL (80.0-100.0)
[2025-05-30 07:40] LABS: Alkaline Phosphatase 107 U/L (46-116); Anion Gap 8 (5-15); BUN/Creatinine Ratio 51.2 (10.0-20.0); Blood Urea Nitrogen 22 mg/dL (9-23); Calcium 9.5 mg/dL (8.7-10.4); Magnesium 2.4 mg/dL (1.6-2.6); Potassium 3.7 mmol/L (3.5-5.1)
[2025-05-30 07:41] LABS: Bilirubin, Total 0.9 mg/dL (0.2-1.0)
[2025-05-30 07:42] LABS: Alanine Aminotransferase 79 U/L (7-40); Albumin 2.9 g/dL (3.2-4.8); Carbon Dioxide 32 mmol/L (20-31); Chloride 112 mmol/L (98-107); Glucose 167 mg/dL (74-106); Sodium 152 mmol/L (136-145); Total Protein 4.3 g/dL (5.7-8.2)
[2025-05-30 08:25] LABS: Total Cells Counted 100.0 (100)
--- NOTE | 2025-05-30 13:04 | DVHPN2 ---
Progress Note - Dictate Date Seen: May 30, 2025 Medical Necessity Reason Pt with a Central, PICC or Fol: Yes The following are medically ne: PICC Line, Walter Catheter Reason for walter catheter: Strict I&O vital signs Vital Sign Date Time Temp Pulse Resp B/P (MAP) Pulse Ox O2 Delivery O2 Flow Rate FiO2 05/30/25 12:00 98.7 116 23 106/63 (77) 96 98.7 05/30/25 12:00 Nasal Cannula* 3 32 Total Intake and Output 05/29/25 05/29/25 05/30/25 15:00 23:00 07:00 Intake Total 218 ml 871 ml 346 ml Output Total 225 ml 350 ml Balance 218 ml 646 ml -4 ml medications Current Medications Medications Dose Ordered Sig/Atilio Route Start Time Stop Time Status Last Admin Dose Admin Vancomycin HCl 0 ml @ 0 mls/hr UD IV 05/16/25 22:30 Famotidine 20 mg Q12HR IV 05/17/25 10:00 05/30/25 10:09 20 MG Diagnostic Test (Pha) 1 strip Q6HR 05/17/25 00:00 05/30/25 12:08 1 STRIP Insulin Human Regular Q6HR SC 05/17/25 00:00 05/30/25 12:09 3 UNITS Dextrose 50 ml UD PRN IV 05/16/25 22:30 Ondansetron HCl 4 mg Q4HP PRN IV 05/16/25 22:30 Nitroglycerin 0.4 mg Q5MINP PRN SL 05/16/25 22:30 Acetaminophen 650 mg Q6HP PRN GT 05/17/25 11:45 05/28/25 23:11 650 MG Ipratropium [place] 0.5 mg Q6HR NEB 05/17/25 12:00 05/30/25 07:59 0.5 MG Budesonide 0.5 mg BID NEB 05/17/25 22:00 05/29/25 19:19 0.5 MG Enteral Nutritional Formula 1,000 ml 30ML/HR GT 05/18/25 14:30 05/26/25 23:50 1,000 ML Aspirin 81 mg DAILY PO 05/20/25 10:00 05/30/25 10:09 81 MG Lactulose 30 ml BID PO 05/21/25 10:00 05/29/25 20:56 30 ML Norepinephrine Bitartrate 250 ml @ 1.875 mls/ hr Q24H IV 05/21/25 11:00 05/26/25 22:57 13.125 MLS/HR Methylprednisolone Sodium Succinate 40 mg BID IV 05/21/25 22:00 05/30/25 10:11 40 MG Enoxaparin Sodium 40 mg DAILY SC 05/22/25 10:00 05/30/25 10:10 40 MG Levalbuterol HCl 1.25 mg Q6HR NEB 05/26/25 12:00 05/30/25 07:59 1.25 MG Sodium Chloride 10 ml QSHIFT@10,22 IV 05/26/25 22:00 05/30/25 10:11 10 ML Acetylcysteine 200 mg Q6HR NEB 05/27/25 12:00 05/30/25 07:59 200 MG Meropenem 50 ml @ 17 mls/hr Q8HR IV 05/27/25 22:00 05/30/25 06:46 17 MLS/HR Purified Water 150 ml Q6HR GT 05/28/25 08:30 05/30/25 12:07 150 ML Lisinopril 2.5 mg DAILY PO 05/29/25 10:00 05/30/25 10:10 2.5 MG Vancomycin HCl 100 ml @ 100 mls/hr DAILY@1700 IV 05/29/25 17:00 05/29/25 17:23 100 MLS/HR laboratory and microbiology Laboratory Tests 05/30/25 06:05 Test 05/30/25 06:05 Range/Units Serum Glucose 167 H 74-106 mg/dL Assessment/Plan Covering for Dr. Castañeda Impression Acute hypoxemic respiratory failure Acute COPD exacerbation Right lung mass Emphysema Patient seen and examined in [facility] none improving NG in place pt s/p extubation failing swallow evl Labs and imaging reviewed ABG reviewed Management suppl 02 PT IS nutrition Antibiotics Bronchodilators Continue steroids Monitor renal function Monitor electrolytes Supplement as needed DVT prophylaxis Critical care time 35 minutes Dietary Evaluation Review Comments: 1) If patient remains NPO > 7 days, consider EN/TPN to meet at least 75% of estimated energy needs 2) If GI is preferred, consider Jevity 1.2 @ 35 mL/hr goal rate as tolerated. Flush with 200 mL free H2O Q6H. EN regimen will provide 1008 kcals, 47g Pro, 1478 mL free H2O (including flushes) per 24 hrs. Goal rate will meet ~97% estimated energy needs and 64% estimated protein needs 3) Advanced to regular diet when medically feasible, pending ST approval 4) Follow-up with pulmonology 5) Continue to monitor I&O, labs, and skin integrity Expected Outcomes/Goals: 1) labs to improve 2) patient to receive nutritional support within 7 days of NPO status 3) diet to advance 4) f/u in 2-3 days Plan discussed with: Patient MARNIE TSAI MD May 30, 2025 13:04
--- NOTE | 2025-05-30 16:46 | DVHPN2 ---
Subjective Overnight events noted. Patient was extubated on May, currently on O2 supplementation at 2-2.5 L by continuous nasal cannula. Reviewed: Care Plan Changes from previous H/P or p: No Changes General: Per HPI Eyes: No Pain, No Vision change, No Conjunctivae inflammation, No Eyelid inflammation, No Other, No Redness ENT: No Ear pain, No Ear discharge, No Nose pain, No Nose discharge, No Nose congestion, No Mouth pain, No Mouth swelling, No Throat pain, No Throat swelling, No Other Cardiovascular: No Chest Pain, No Palpitations, No Orthopnea, No Paroxysmal Noc. Dyspnea, No Edema, No Lt Headedness, No Other Respiratory: No Cough, No Dry; Shortness of breath, SOB with excertion, W heezing; No Hemoptysis, No Pleuritic Pain, No Sputum; Other (SOB at rest) Gastrointestinal: No Nausea, No Vomiting, No Abdominal Pain, No Diarrhea, No Constipation, No Melena, No Hematochezia, No Other Genitourinary: No Dysuria, No Frequency, No Incontinence, No Hematuria, No Retention, No Other Musculoskeletal: No other, No neck pain, No shoulder pain, No arm pain, No back pain, No hand pain, No leg pain, No foot pain Skin: No Rash, No Lesions, No Jaundice, No Bruising, No Other Objective Vitals Vital Signs Date Time Temp Pulse Resp B/P (MAP) Pulse Ox O2 Delivery O2 Flow Rate FiO2 05/30/25 16:00 113 05/30/25 16:00 25 100 Nasal Cannula* 3 32 05/30/25 16:00 98.9 81/51 (61) 98.9 Intake/Output Intake and Output 05/30/25 07:00 Intake Total 1435 ml Output Total 575 ml Balance 860 ml Intake Oral 350 ml IV Total 505 ml Tube Feeding 580 ml Output Urine Total 575 ml # Bowel Movements 3 Exam HEENT pupils are reactive Neck is supple CV is S1-S2 regular rate and rhythm Respiratory are clear GI positive bowel sound Extremity no edema NOCTURNIST no motor deficit General Appearance: Other (Intubated, on vent) HEENT: Atraumatic Neck: Supple Cardiovascular: Regular rate, Normal S1, Normal S2, No murmurs, Gallops, Rubs Abdomen: No Normal bowel sounds; Soft, No tenderness Medications Current Medications Medications Dose Ordered Sig/Atilio Route Start Time Stop Time Status Last Admin Dose Admin Vancomycin HCl 0 ml @ 0 mls/hr UD IV 05/16/25 22:30 Famotidine 20 mg Q12HR IV 05/17/25 10:00 05/30/25 10:09 20 MG Diagnostic Test (Pha) 1 strip Q6HR 05/17/25 00:00 05/30/25 12:08 1 STRIP Insulin Human Regular Q6HR SC 05/17/25 00:00 05/30/25 12:09 3 UNITS Dextrose 50 ml UD PRN IV 05/16/25 22:30 Ondansetron HCl 4 mg Q4HP PRN IV 05/16/25 22:30 Nitroglycerin 0.4 mg Q5MINP PRN SL 05/16/25 22:30 Acetaminophen 650 mg Q6HP PRN GT 05/17/25 11:45 05/28/25 23:11 650 MG Ipratropium [place] 0.5 mg Q6HR NEB 05/17/25 12:00 05/30/25 13:17 0.5 MG Budesonide 0.5 mg BID NEB 05/17/25 22:00 05/30/25 07:59 0.5 MG Enteral Nutritional Formula 1,000 ml 30ML/HR GT 05/18/25 14:30 05/26/25 23:50 1,000 ML Aspirin 81 mg DAILY PO 05/20/25 10:00 05/30/25 10:09 81 MG Lactulose 30 ml BID PO 05/21/25 10:00 05/29/25 20:56 30 ML Norepinephrine Bitartrate 250 ml @ 1.875 mls/ hr Q24H IV 05/21/25 11:00 05/26/25 22:57 13.125 MLS/HR Methylprednisolone Sodium Succinate 40 mg BID IV 05/21/25 22:00 05/30/25 10:11 40 MG Enoxaparin Sodium 40 mg DAILY SC 05/22/25 10:00 05/30/25 10:10 40 MG Levalbuterol HCl 1.25 mg Q6HR NEB 05/26/25 12:00 05/30/25 13:17 1.25 MG Sodium Chloride 10 ml QSHIFT@10,22 IV 05/26/25 22:00 05/30/25 10:11 10 ML Acetylcysteine 200 mg Q6HR NEB 05/27/25 12:00 05/30/25 13:20 200 MG Meropenem 50 ml @ 17 mls/hr Q8HR IV 05/27/25 22:00 05/30/25 13:31 17 MLS/HR Purified Water 150 ml Q6HR GT 05/28/25 08:30 05/30/25 12:07 150 ML Lisinopril 2.5 mg DAILY PO 05/29/25 10:00 05/30/25 10:10 2.5 MG Vancomycin HCl 100 ml @ 100 mls/hr DAILY@1700 IV 05/29/25 17:00 05/29/25 17:23 100 MLS/HR Laboratory Results Laboratory Tests 05/30/25 06:05 Chemistry Test 05/30/25 06:05 Albumin 2.9 g/dL (3.2-4.8) L Calcium Level 9.5 mg/dL (8.7-10.4) Magnesium Level 2.4 mg/dL (1.6-2.6) Total Protein 4.3 g/dL (5.7-8.2) L LFT Test 05/30/25 06:05 Alanine Aminotransferase (ALT) 79 U/L (7-40) H Alkaline Phosphatase 107 U/L (46-116) Aspartate Amino Transferase (AST) 50 U/L (13-40) H Total Bilirubin 0.9 mg/dL (0.2-1.0) Urinalysis Test 05/17/25 23:40 Urine Color Yellow (Yellow) Urine Clarity Ex.turbid (Clear) Urine pH 5.5 (5.0-9.0) Urine Specific [place] 1.023 (1.001-1.035) Urine Protein Trace (Negative) H Urine Ketones Trace (Negative) Urine Blood Trace /uL (Negative) H Urine Nitrite Negative (Negative) Urine Bilirubin Negative (Negative) Urine Urobilinogen Normal mg/dL (Negative) Urine Leukocyte Esterase Negative /uL (Negative) Urine RBC 20 /hpf (0 - 4) Urine Microscopic WBC 6 /HPF (0-5) H Urine Squamous Epithelial Cells Few /hpf (<5) Urine Uric Acid Crystals Mod /hpf (None Seen) Urine Amorphous Crystals Few /hpf (None Seen) Urine Bacteria None seen /hpf (None Seen) Urine Granular Casts Few /lpf (0) Urine Glucose Normal mg/dL (Normal) Microbiology Microbiology Date/Time Source Procedure Growth Status 05/29/25 13:00 Blood Blood Culture - Preliminary NO GROWTH AFTER 24 HOURS OF INCUBATION. Resulted 05/26/25 23:23 Catheter Tip Aerobic Culture - Preliminary Resulted 05/21/25 14:50 Urine - [place] Urine Culture - Final Complete 05/16/25 22:02 Sputum Gram Stain - Final Resulted 05/16/25 22:02 Sputum Respiratory Culture - Preliminary Resulted Assessment/Plan Assessment/Plan 64-year-old female with a known history of chronic respiratory failure on home O2, COPD, previous history of tobacco use disorder, myotonic muscular dystrophy, aortic valve stenosis status post SAVR presented to the hospital with a increasing shortness a breath with a hypoxia eventually intubated in the ER. After the intubation patient has had a cardiac arrest status post CPR for 5-6 minutes with the ACLS protocol with ROSC after 5-6 minutes. 1. Acute on chronic hypoxic respiratory failure secondary to acute COPD exacerbation, status post intubation, status post extubation on05/28, currently on continuous nasal cannula for O2 supplementation 2. Acute COPD exacerbation 3. Cardiac arrest status post ROSC after 5-6 minutes 4. Cardiomyopathy with the EF of 25-30% status post left heart catheterization on 05/20 5. Sepsis secondary to ESBL UTI and pneumonia 6. Staph epidermidis, Staph hominis bacteremia likely contamination 7. Leukocytosis with a known history of myeloproliferative disorder 8. Aortic valve stenosis status post TAVR in March 2024 9. Dyslipidemia 10. Myotonic muscular dystrophy 11. Previous history of tobacco use disorder -continue med nebs, steroids, O2 supplementation , IV antibiotics -repeat labs -physical therapy evaluation and treatment. Plan discussed with: Patient, Daughter Date of Service: May 30, 2025 Billing Provider: ADILENE ROSS MD Common Visit Codes: [id number] INP/OBS CARE(HIGH) ADILENE ROSS MD May 30, 2025 16:46
[2025-05-31] VITALS (28 sets, daily range): BP systolic 78–113; BP diastolic 48–72; PULSE 18–122; RESP 15–25; TEMP 97.8–100.3; O2SAT 93–100
[2025-05-31] MEDS ORDERED: ACETYLCYSTEINE 20%(200MG/ML) SOL 4ML ONE (05:58)
[2025-05-31] MEDS ORDERED: LEVALBUTEROL HCL 1.25 MG/3 ML NEB ONE ×3 (05:59→18:03)
[2025-05-31] MEDS ORDERED: IPRATROPIUM BROM 0.5 MG/2.5ML INH SOL ONE ×3 (06:00→18:03)
[2025-05-31] MEDS: SODIUM CHLORIDE 0.9% 500 ML IV ONE (06:45)
[2025-05-31] MEDS ORDERED: BUDESONIDE (INHALATION) 0.5 MG/2 ML NEB ONE (11:23)
--- NOTE | 2025-05-31 14:27 | DVHPN2 ---
Progress Note - Dictate Date Seen: May 31, 2025 Medical Necessity Reason Pt with a Central, PICC or Fol: Yes The following are medically ne: PICC Line, Walter Catheter Reason for walter catheter: Strict I&O vital signs Vital Sign Date Time Temp Pulse Resp B/P (MAP) Pulse Ox O2 Delivery O2 Flow Rate FiO2 05/31/25 12:00 99.3 109 23 93/63 (73) 100 99.3 05/31/25 12:00 Nasal Cannula* 3 32 Total Intake and Output 05/30/25 05/30/25 05/31/25 14:59 22:59 06:59 Intake Total 67 ml 754 ml 384 ml Output Total 225 ml 350 ml Balance 67 ml 529 ml 34 ml medications Current Medications Medications Dose Ordered Sig/Atilio Route Start Time Stop Time Status Last Admin Dose Admin Vancomycin HCl 0 ml @ 0 mls/hr UD IV 05/16/25 22:30 Famotidine 20 mg Q12HR IV 05/17/25 10:00 05/31/25 10:31 20 MG Diagnostic Test (Pha) 1 strip Q6HR 05/17/25 00:00 05/31/25 12:24 1 STRIP Insulin Human Regular Q6HR SC 05/17/25 00:00 05/31/25 12:27 2 UNITS Dextrose 50 ml UD PRN IV 05/16/25 22:30 Ondansetron HCl 4 mg Q4HP PRN IV 05/16/25 22:30 Nitroglycerin 0.4 mg Q5MINP PRN SL 05/16/25 22:30 Acetaminophen 650 mg Q6HP PRN GT 05/17/25 11:45 05/28/25 23:11 650 MG Ipratropium [place] 0.5 mg Q6HR NEB 05/17/25 12:00 05/31/25 11:42 0.5 MG Budesonide 0.5 mg BID NEB 05/17/25 22:00 05/31/25 07:37 0.5 MG Enteral Nutritional Formula 1,000 ml 30ML/HR GT 05/18/25 14:30 05/26/25 23:50 1,000 ML Aspirin 81 mg DAILY PO 05/20/25 10:00 05/31/25 10:32 81 MG Lactulose 30 ml BID PO 05/21/25 10:00 05/29/25 20:56 30 ML Norepinephrine Bitartrate 250 ml @ 1.875 mls/ hr Q24H IV 05/21/25 11:00 05/26/25 22:57 13.125 MLS/HR Methylprednisolone Sodium Succinate 40 mg BID IV 05/21/25 22:00 05/31/25 10:31 40 MG Enoxaparin Sodium 40 mg DAILY SC 05/22/25 10:00 05/31/25 10:31 40 MG Levalbuterol HCl 1.25 mg Q6HR NEB 05/26/25 12:00 05/31/25 11:42 1.25 MG Sodium Chloride 10 ml QSHIFT@10,22 IV 05/26/25 22:00 05/31/25 10:32 10 ML Acetylcysteine 200 mg Q6HR NEB 05/27/25 12:00 05/31/25 11:42 200 MG Meropenem 50 ml @ 17 mls/hr Q8HR IV 05/27/25 22:00 05/31/25 13:06 17 MLS/HR Purified Water 150 ml Q6HR GT 05/28/25 08:30 05/31/25 10:33 150 ML Lisinopril 2.5 mg DAILY PO 05/29/25 10:00 05/30/25 10:10 2.5 MG Vancomycin HCl 100 ml @ 100 mls/hr DAILY@1700 IV 05/29/25 17:00 05/30/25 16:56 100 MLS/HR laboratory and microbiology Laboratory Tests 05/30/25 06:05 Test 05/30/25 06:05 Range/Units Serum Glucose 167 H 74-106 mg/dL Assessment/Plan Covering for Dr. Castañeda Impression Acute hypoxemic respiratory failure Acute COPD exacerbation Right lung mass Emphysema Patient seen and examined in [facility] Events pt s/p extubation failing swallow eval appears to have severe critical illness neuropathy/myopathy Labs and imaging reviewed ABG reviewed Management suppl 02 PT IS nutrition Antibiotics Bronchodilators Continue steroids Monitor renal function Monitor electrolytes Supplement as needed Recommend neurology input DVT prophylaxis Critical care time 35 minutes Dietary Evaluation Review Comments: 1) If patient remains NPO > 7 days, consider EN/TPN to meet at least 75% of estimated energy needs 2) If GI is preferred, consider Jevity 1.2 @ 35 mL/hr goal rate as tolerated. Flush with 200 mL free H2O Q6H. EN regimen will provide 1008 kcals, 47g Pro, 1478 mL free H2O (including flushes) per 24 hrs. Goal rate will meet ~97% estimated energy needs and 64% estimated protein needs 3) Advanced to regular diet when medically feasible, pending ST approval 4) Follow-up with pulmonology 5) Continue to monitor I&O, labs, and skin integrity Expected Outcomes/Goals: 1) labs to improve 2) patient to receive nutritional support within 7 days of NPO status 3) diet to advance 4) f/u in 2-3 days Plan discussed with: Other (Rn) MARNIE TSAI MD May 31, 2025 14:27
[2025-05-31 16:33] LABS: Hemoglobin 10.6 g/dL (12.2-16.2)
[2025-05-31 16:35] LABS: Hematocrit 32.1 % (36.0-46.0); Mean Corpuscular Hemoglobin 30.6 pg (28.0-32.0); Mean Corpuscular Volume 92.5 fL (80.0-100.0)
--- NOTE | 2025-05-31 17:18 | DVHPN2 ---
Subjective Overnight events noted. Patient was extubated on May, currently on O2 supplementation at 2-2.5 L by continuous nasal cannula. Reviewed: Care Plan Changes from previous H/P or p: No Changes General: Per HPI Eyes: No Pain, No Vision change, No Conjunctivae inflammation, No Eyelid inflammation, No Other, No Redness ENT: No Ear pain, No Ear discharge, No Nose pain, No Nose discharge, No Nose congestion, No Mouth pain, No Mouth swelling, No Throat pain, No Throat swelling, No Other Cardiovascular: No Chest Pain, No Palpitations, No Orthopnea, No Paroxysmal Noc. Dyspnea, No Edema, No Lt Headedness, No Other Respiratory: No Cough, No Dry; Shortness of breath, SOB with excertion, W heezing; No Hemoptysis, No Pleuritic Pain, No Sputum; Other (SOB at rest) Gastrointestinal: No Nausea, No Vomiting, No Abdominal Pain, No Diarrhea, No Constipation, No Melena, No Hematochezia, No Other Genitourinary: No Dysuria, No Frequency, No Incontinence, No Hematuria, No Retention, No Other Musculoskeletal: No other, No neck pain, No shoulder pain, No arm pain, No back pain, No hand pain, No leg pain, No foot pain Skin: No Rash, No Lesions, No Jaundice, No Bruising, No Other Objective Vitals Vital Signs Date Time Temp Pulse Resp B/P (MAP) Pulse Ox O2 Delivery O2 Flow Rate FiO2 05/31/25 16:00 16 97 Nasal Cannula* 3 32 05/31/25 16:00 100.3 111 98/53 (68) 100.3 Intake/Output Intake and Output 05/31/25 07:00 Intake Total 1189 ml Output Total 575 ml Balance 614 ml Intake Oral 360 ml IV Total 119 ml Tube Feeding 710 ml Output Urine Total 575 ml Exam HEENT pupils are reactive Neck is supple CV is S1-S2 regular rate and rhythm Respiratory are clear GI positive bowel sound Extremity no edema SEVERITY OF ILLNESS COORDINATOR no motor deficit General Appearance: Other (Intubated, on vent) HEENT: Atraumatic Neck: Supple Cardiovascular: Regular rate, Normal S1, Normal S2, No murmurs, Gallops, Rubs Abdomen: No Normal bowel sounds; Soft, No tenderness Medications Current Medications Medications Dose Ordered Sig/Atilio Route Start Time Stop Time Status Last Admin Dose Admin Vancomycin HCl 0 ml @ 0 mls/hr UD IV 05/16/25 22:30 Famotidine 20 mg Q12HR IV 05/17/25 10:00 05/31/25 10:31 20 MG Diagnostic Test (Pha) 1 strip Q6HR 05/17/25 00:00 05/31/25 12:24 1 STRIP Insulin Human Regular Q6HR SC 05/17/25 00:00 05/31/25 12:27 2 UNITS Dextrose 50 ml UD PRN IV 05/16/25 22:30 Ondansetron HCl 4 mg Q4HP PRN IV 05/16/25 22:30 Nitroglycerin 0.4 mg Q5MINP PRN SL 05/16/25 22:30 Acetaminophen 650 mg Q6HP PRN GT 05/17/25 11:45 05/28/25 23:11 650 MG Ipratropium [place] 0.5 mg Q6HR NEB 05/17/25 12:00 05/31/25 11:42 0.5 MG Budesonide 0.5 mg BID NEB 05/17/25 22:00 05/31/25 07:37 0.5 MG Enteral Nutritional Formula 1,000 ml 30ML/HR GT 05/18/25 14:30 05/26/25 23:50 1,000 ML Aspirin 81 mg DAILY PO 05/20/25 10:00 05/31/25 10:32 81 MG Lactulose 30 ml BID PO 05/21/25 10:00 05/29/25 20:56 30 ML Norepinephrine Bitartrate 250 ml @ 1.875 mls/ hr Q24H IV 05/21/25 11:00 05/26/25 22:57 13.125 MLS/HR Methylprednisolone Sodium Succinate 40 mg BID IV 05/21/25 22:00 05/31/25 10:31 40 MG Enoxaparin Sodium 40 mg DAILY SC 05/22/25 10:00 05/31/25 10:31 40 MG Levalbuterol HCl 1.25 mg Q6HR NEB 05/26/25 12:00 05/31/25 11:42 1.25 MG Sodium Chloride 10 ml QSHIFT@10,22 IV 05/26/25 22:00 05/31/25 10:32 10 ML Acetylcysteine 200 mg Q6HR NEB 05/27/25 12:00 05/31/25 11:42 200 MG Meropenem 50 ml @ 17 mls/hr Q8HR IV 05/27/25 22:00 05/31/25 13:06 17 MLS/HR Purified Water 150 ml Q6HR GT 05/28/25 08:30 05/31/25 10:33 150 ML Lisinopril 2.5 mg DAILY PO 05/29/25 10:00 05/30/25 10:10 2.5 MG Vancomycin HCl 250 ml @ 200 mls/hr DAILY@1700 IV 05/31/25 17:00 Laboratory Results Laboratory Tests 05/30/25 06:05 05/31/25 16:01 Urinalysis Test 05/17/25 23:40 Urine Color Yellow (Yellow) Urine Clarity Ex.turbid (Clear) Urine pH 5.5 (5.0-9.0) Urine Specific [place] 1.023 (1.001-1.035) Urine Protein Trace (Negative) H Urine Ketones Trace (Negative) Urine Blood Trace /uL (Negative) H Urine Nitrite Negative (Negative) Urine Bilirubin Negative (Negative) Urine Urobilinogen Normal mg/dL (Negative) Urine Leukocyte Esterase Negative /uL (Negative) Urine RBC 20 /hpf (0 - 4) Urine Microscopic WBC 6 /HPF (0-5) H Urine Squamous Epithelial Cells Few /hpf (<5) Urine Uric Acid Crystals Mod /hpf (None Seen) Urine Amorphous Crystals Few /hpf (None Seen) Urine Bacteria None seen /hpf (None Seen) Urine Granular Casts Few /lpf (0) Urine Glucose Normal mg/dL (Normal) Microbiology Microbiology Date/Time Source Procedure Growth Status 05/29/25 13:00 Blood Blood Culture - Preliminary NO GROWTH AFTER 48 HOURS OF INCUBATION. Resulted 05/26/25 23:23 Catheter Tip Aerobic Culture - Final Complete 05/21/25 14:50 Urine - [place] Urine Culture - Final Complete 05/16/25 22:02 Sputum Gram Stain - Final Resulted 05/16/25 22:02 Sputum Respiratory Culture - Preliminary Resulted Assessment/Plan Assessment/Plan 64-year-old female with a known history of chronic respiratory failure on home O2, COPD, previous history of tobacco use disorder, myotonic muscular dystrophy, aortic valve stenosis status post SAVR presented to the hospital with a increasing shortness a breath with a hypoxia eventually intubated in the ER. After the intubation patient has had a cardiac arrest status post CPR for 5-6 minutes with the ACLS protocol with ROSC after 5-6 minutes. 1. Acute on chronic hypoxic respiratory failure secondary to acute COPD exacerbation, status post intubation, status post extubation on05/28, currently on continuous nasal cannula for O2 supplementation 2. Acute COPD exacerbation 3. Cardiac arrest status post ROSC after 5-6 minutes 4. Cardiomyopathy with the EF of 25-30% status post left heart catheterization on 05/20 5. Sepsis secondary to ESBL UTI and pneumonia 6. Staph epidermidis, Staph hominis bacteremia likely contamination 7. Leukocytosis with a known history of myeloproliferative disorder 8. Aortic valve stenosis status post TAVR in March 2024 9. Dyslipidemia 10. Myotonic muscular dystrophy 11. Previous history of tobacco use disorder 12. Behavior disorder -continue med nebs, steroids, O2 supplementation , IV antibiotics -repeat labs -physical therapy evaluation and treatment. Plan discussed with: Patient My Orders Orders - ADILENE ROSS MD Procedure Category Date Status Time Basic Metabolic Panel LAB 05/31/25 Logged 13:06 Basic Metabolic Panel LAB 06/01/25 Verified 06:00 Complete Blood Count LAB 06/01/25 Verified 06:00 Magnesium LAB 06/01/25 Verified 06:00 Date of Service: May 31, 2025 Billing Provider: ADILENE ROSS MD Common Visit Codes: [id number] INP/OBS CARE(HIGH) ADILENE ROSS MD May 31, 2025 17:18
[2025-05-31 17:40] LABS: Anisocytosis Slight; Stomatocytes Few; Total Cells Counted 100.0 (100)
[2025-05-31] MEDS: VANCOMYCIN 1.25GM/250ML 250 ML IV SCH (17:51)
[2025-05-31 18:51] LABS: Potassium 4.4 mmol/L (3.5-5.1)
[2025-05-31 18:52] LABS: Anion Gap 5 (5-15)
[2025-05-31 18:53] LABS: Calcium 9.1 mg/dL (8.7-10.4)
[2025-05-31 18:55] LABS: Carbon Dioxide 34 mmol/L (20-31); Chloride 113 mmol/L (98-107); Sodium 152 mmol/L (136-145)
[2025-05-31 18:58] LABS: BUN/Creatinine Ratio 61.3 (10.0-20.0); Blood Urea Nitrogen 19 mg/dL (9-23); Glucose 149 mg/dL (74-106)
--- NOTE | 2025-05-31 22:00 | DVHPN2 ---
Progress Note - Dictate Date Seen: May 31, 2025 Medical Necessity Reason Pt with a Central, PICC or Fol: Yes The following are medically ne: PICC Line, Walter Catheter Reason for walter catheter: Strict I&O Subjective Ms. Bauman is a 64 years old right-handed female with a history of dyslipidemia, asthma, aortic stenosis, COPD, myeloproliferative disorder, myotonic muscular dystrophy, the patient was taken to the hospital with a chief complaint of shortness of breath, I have seen and examined the patient, I have talked to her nurse, eyes are open, she is oriented to person, place, follows verbal commands, socially appropriate weaker today CBC, 05/16/2021: Respiratory acidosis, 05/17/2025: Respiratory acidosis, 05/18/25: Hypoxia, carbon dioxide retention WBC/HB/PLT/MCV, 05/16/2025: 62.5/15. 4/640/94.2, 05/17/2025: 72.6/16.1/520/91.2, 05/18/2025: 25.1/13.3/248/90.4 BUN/CR, 05/17/2025: 15/0.56 GFR, 05/17/2025: 103 Lactic acid, 05/16/25: 5.3 HGB A1c, 05/16/2025: 4.2 Troponin one high sensitivity, 05/16/2025: 1209, 2081, 4211, 05/18/2025: 7100 TBI/AST/ALT/AP, 05/17/2025: 1.8/86/25/183 TG/HDL/LDL/HDL, 05/18/2025: 198/116/54/34 Extremity venous study, 05/27/2025: Thrombus in the right cephalic vein. If clinical concern/symptoms persist or worsen, short-interval follow-up study is suggested. KUB, 05/22/2025: Nonobstructive bowel gas pattern. Nasogastric tube tip in the stomach CT head, 05/17/2025: 1. No acute intracranial abnormality. 2. Chronic sequelae of microvascular disease CT head, 05/18/2025: No acute intracranial abnormality seen. Advanced chronic small vessel ischemic eubanks CT chest, 05/21/2025: 1. Large right lower lobe lobulated opacity favored to reflect an infectious / inflammatory etiology. Doubt malignancy given size and no definite right lower lobe pulmonary nodules appreciated on 09/08/2024. 2. Mildly prominent mediastinal nodes favored reactive. 3. Centrilobular emphysema. vital signs Vital Sign Date Time Temp Pulse Resp B/P (MAP) Pulse Ox O2 Delivery O2 Flow Rate FiO2 05/31/25 20:00 115 18 98 Nasal Cannula* 3 32 05/31/25 20:00 98.3 113/72 (86) 98.3 Total Intake and Output 05/30/25 05/30/25 05/31/25 15:00 23:00 07:00 Intake Total 68 ml 754 ml 367 ml Output Total 225 ml 350 ml Balance 68 ml 529 ml 17 ml medications Current Medications Medications Dose Ordered Sig/Atilio Route Start Time Stop Time Status Last Admin Dose Admin Vancomycin HCl 0 ml @ 0 mls/hr UD IV 05/16/25 22:30 Famotidine 20 mg Q12HR IV 05/17/25 10:00 05/31/25 21:22 20 MG Diagnostic Test (Pha) 1 strip Q6HR 05/17/25 00:00 05/31/25 17:51 1 STRIP Insulin Human Regular Q6HR SC 05/17/25 00:00 05/31/25 17:53 2 UNITS Dextrose 50 ml UD PRN IV 05/16/25 22:30 Ondansetron HCl 4 mg Q4HP PRN IV 05/16/25 22:30 Nitroglycerin 0.4 mg Q5MINP PRN SL 05/16/25 22:30 Acetaminophen 650 mg Q6HP PRN GT 05/17/25 11:45 05/28/25 23:11 650 MG Ipratropium [place] 0.5 mg Q6HR NEB 05/17/25 12:00 05/31/25 19:18 0.5 MG Budesonide 0.5 mg BID NEB 05/17/25 22:00 05/31/25 19:18 0.5 MG Enteral Nutritional Formula 1,000 ml 30ML/HR GT 05/18/25 14:30 05/26/25 23:50 1,000 ML Aspirin 81 mg DAILY PO 05/20/25 10:00 05/31/25 10:32 81 MG Lactulose 30 ml BID PO 05/21/25 10:00 05/31/25 21:22 30 ML Norepinephrine Bitartrate 250 ml @ 1.875 mls/ hr Q24H IV 05/21/25 11:00 05/26/25 22:57 13.125 MLS/HR Methylprednisolone Sodium Succinate 40 mg BID IV 05/21/25 22:00 05/31/25 21:22 40 MG Enoxaparin Sodium 40 mg DAILY SC 05/22/25 10:00 05/31/25 10:31 40 MG Levalbuterol HCl 1.25 mg Q6HR NEB 05/26/25 12:00 05/31/25 19:18 1.25 MG Sodium Chloride 10 ml QSHIFT@10,22 IV 05/26/25 22:00 05/31/25 21:23 10 ML Acetylcysteine 200 mg Q6HR NEB 05/27/25 12:00 05/31/25 19:18 200 MG Meropenem 50 ml @ 17 mls/hr Q8HR IV 05/27/25 22:00 05/31/25 21:22 17 MLS/HR Purified Water 150 ml Q6HR GT 05/28/25 08:30 05/31/25 17:51 150 ML Lisinopril 2.5 mg DAILY PO 05/29/25 10:00 05/30/25 10:10 2.5 MG Vancomycin HCl 250 ml @ 200 mls/hr DAILY@1700 IV 05/31/25 17:00 05/31/25 17:51 200 MLS/HR objective The patient is well-nourished and well-developed with no distress. MENTAL STATUS: Subjective Language: No aphasia, her voice is soft and slurry CRANIAL NERVES: Pupils are round and reactive, small. There conjugated eye movement. No signs of facial weakness. Motor and sensory examined in bilateral trigeminal distribution is fine SENSATION: Okay to pinprick and light touch MOTOR: Normal tone in the upper and lower extremity. Normal muscle bulk. No fasciculations. Muscle power in the upper extremity: Shoulder: 2/5, elbow 2- 4/5, grippin/5. Lower extremities: 2/5. Stronger in the feet REFLEXES: Deep tendon reflexes are symmetrical. CEREBELLAR/COORDINATION: Deferred GAIT/STATION: deferred. laboratory and microbiology Laboratory Tests 05/31/25 16:01 Test 05/31/25 16:01 Range/Units Serum Glucose 149 H 74-106 mg/dL Problem List Cardiopulmonary arrest Coma, resolved Metabolic encephalopathy Hypoxic encephalopathy Toxic encephalopathy Acute respiratory failure, improving Chronic respiratory failure/COPD on home oxygen Elevated troponin I high sensitivity/heart attack Deep venous thrombosis Myeloproliferative disorder ? ICU myopathy Assessment/Plan Monitoring Supportive treatment MELISA care Follow up labs Stabilize vitals Respiratory support Oxygen IV antibiotics Lovenox 40 mg subQ daily Aspirin 81 mg daily GI prophylaxis/famotidine More recommendation per clinical course This medical document was created using an electronic medical record system with [employer] dictation system. Although this document has been carefully reviewed, there may still be some phonetic and typographical errors. These areas are purely typographical due to imperfections of the software programs, and do not reflect any compromise in the patient's medical care Prognosis poor Dietary Evaluation Review Comments: 1) If patient remains NPO > 7 days, consider EN/TPN to meet at least 75% of estimated energy needs 2) If GI is preferred, consider Jevity 1.2 @ 35 mL/hr goal rate as tolerated. Flush with 200 mL free H2O Q6H. EN regimen will provide 1008 kcals, 47g Pro, 1478 mL free H2O (including flushes) per 24 hrs. Goal rate will meet ~97% estimated energy needs and 64% estimated protein needs 3) Advanced to regular diet when medically feasible, pending ST approval 4) Follow-up with pulmonology 5) Continue to monitor I&O, labs, and skin integrity Expected Outcomes/Goals: 1) labs to improve 2) patient to receive nutritional support within 7 days of NPO status 3) diet to advance 4) f/u in 2-3 days Plan discussed with: FÉLIX Farley MD May 31, 2025 22:00
[2025-06-01] VITALS (67 sets, daily range): BP systolic 90–147; BP diastolic 51–80; PULSE 97–137; RESP 15–28; TEMP 98.2–99; O2SAT 70–100
[2025-06-01 07:18] LABS: Anion Gap 7 (5-15); Potassium 4.1 mmol/L (3.5-5.1)
[2025-06-01 07:20] LABS: Calcium 9.3 mg/dL (8.7-10.4)
[2025-06-01 07:23] LABS: Carbon Dioxide 33 mmol/L (20-31); Chloride 109 mmol/L (98-107); Sodium 149 mmol/L (136-145)
[2025-06-01 07:25] LABS: BUN/Creatinine Ratio 59.4 (10.0-20.0); Blood Urea Nitrogen 19 mg/dL (9-23); Magnesium 2.2 mg/dL (1.6-2.6)
[2025-06-01 07:27] LABS: Glucose 199 mg/dL (74-106)
[2025-06-01 07:37] LABS: Hematocrit 31.6 % (36.0-46.0); Hemoglobin 10.5 g/dL (12.2-16.2)
[2025-06-01 07:39] LABS: Mean Corpuscular Hemoglobin 31.0 pg (28.0-32.0); Mean Corpuscular Volume 93.2 fL (80.0-100.0)
[2025-06-01] MEDS: D5W/SOD CHL 0.45% 1,000 ML IV SCH (09:30)
[2025-06-01 09:47] LABS: Stomatocytes Few; Total Cells Counted 100.0 (100)
--- NOTE | 2025-06-01 10:53 | DVH ---
EXAM: XY CHEST XRAY 1 VIEW Indication: dec air entry; pain Technique: Single frontal view of the chest was obtained Comparison: XY CHEST XRAY 1 VIEW on DOS: 05/29/25, XY CHEST PORTABLE on DOS: 05/28/25, XY CHEST XRAY 1 VIEW on DOS: 05/27/25, XY CHEST XRAY 1 VIEW on DOS: 05/26/25, XY CHEST PORTABLE on DOS: 05/25/25 FINDINGS: Lines and Tubes: Enteric tube tip projects over the expected region of the stomach. Left PICC tip pro jects over the superior vena cava. Lungs: Unchanged right lower lung opacity. No pneumothorax. Cardiomediastinal contours: Unremarkable Bones: No acute osseous abnormality. IMPRESSION: Unchanged right lower lung opacity.
--- NOTE | 2025-06-01 12:32 | DVHINCON2 ---
GI Consult Consult Note GI consult note Date of Consultation: 06/01/2025 Chief Complaint: Failed swallow eval, eval for PEG Referring Physician: Dr. Butcher H&P: 64-year-old female with past medical history of chronic respiratory failure on home oxygen, COPD, myotonic muscular dystrophy, aortic valve stenosis status post SVR, status post intubated in the ER, after which patient had cardiac arrest status post CPR for 5-6 minutes with ROSC after 5-6 minutes. Patient is awake but noted to have difficulty breathing. History from chart and RN at bedside. No family at bedside. Patient is on Lovenox and aspirin. Status post left heart catheterizations on 05/20/2025. Patient is on NG tube feedings at this time Past Medical History: Asthma, COPD, UTI'S, myotonic muscular dystrophy, aortic valve stenosis Past Surgical History: Hysterectomy Social History: NO smoking, drinking ETOH and use of illegal drugs. Family History: Noncontributory Review of Systems: As above Physical exam: General: Patient is awake and is noted to have mild distress with breathing Chest: lung garcia clear to auscultation Heart: RRR, no murmur Abdomen: non-distended, no tenderness to palpation, +BS Labs: 05/31/25 16:01 Urinalysis Test 05/17/25 23:40 Urine Color Yellow (Yellow) Urine Clarity Ex.turbid (Clear) Urine pH 5.5 (5.0-9.0) Urine Specific [place] 1.023 (1.001-1.035) Urine Protein Trace (Negative) H Urine Ketones Trace (Negative) Urine Blood Trace /uL (Negative) H Urine Nitrite Negative (Negative) Urine Bilirubin Negative (Negative) Urine Urobilinogen Normal mg/dL (Negative) Urine Leukocyte Esterase Negative /uL (Negative) Urine RBC 20 /hpf (0 - 4) Urine Microscopic WBC 6 /HPF (0-5) H Urine Squamous Epithelial Cells Few /hpf (<5) Urine Uric Acid Crystals Mod /hpf (None Seen) Urine Amorphous Crystals Few /hpf (None Seen) Urine Bacteria None seen /hpf (None Seen) Urine Granular Casts Few /lpf (0) Urine Glucose Normal mg/dL (Normal) Microbiology Microbiology Date/Time Source Procedure Growth Status 05/29/25 13:00 Blood Blood Culture - Preliminary NO GROWTH AFTER 48 HOURS OF INCUBATION. Resulted 05/26/25 23:23 Catheter Tip Aerobic Culture - Final Complete 05/21/25 14:50 Urine - [place] Urine Culture - Final Complete 05/16/25 22:02 Sputum Gram Stain - Final Resulted 05/16/25 22:02 Sputum Respiratory Culture - Preliminary Resulted Imaging: KUB abdomen IMPRESSION: Nonobstructive bowel gas pattern. Nasogastric tube tip in the stomach Assessment: Respiratory failure COPD Cardiac arrest status post ROSC Myotonic muscular dystrophy Failed swallow evaluation Plan: Discussed with Dr. Celaya for possible EGD with PEG placement, patient needs cardiac clearance, neurology Clear, and to hold blood thinners also We will continue to monitor patient Continue NG-tube feeding Possible plan for EGD with PEG placement later this week when patient is cleared and stable for procedure Discussed plan with RN Thank you for this consult Date of Service: Jun 01, 2025 Billing Provider: LUIS DO Common Visit Codes: CONSULT ONLY Consultation Codes: [id number] CONSULT <60MIN LUIS DO Jun 01, 2025 12:32
[2025-06-01 15:08] LABS: INR 1.21 (0.9-1.15); Partial Thromboplastin Time 37.7 SEC (24.5-34.5); Prothrombin Time 12.6 sec (9.3-11.8)
--- NOTE | 2025-06-01 16:14 | DVHPNRES ---
Progress Note Date Seen: Jun 01, 2025 Resident Creating Document: GILLIAN MUSA RESIDENT Medical Necessity Reason Pt with a Central, PICC or Fol: Yes The following are medically ne: PICC Line, Walter Catheter Reason for walter catheter: Strict I&O Subjective Review of Systems This is a 64-year-old female with COPD on 3 L home oxygen, surgical aortic valve replacement 03/2024, myotonic muscle dystrophy, former nicotine dependence, hyperlipidemia, unspecified myeloproliferative disorder who presented to the ER on 05/16 for the evaluation of shortness of breaths. Per son at the bedside, patient recently lost her dog and was very emotional under stress, she started experiencing shortness of breaths for the past day, associated with wheezing, on arrival to the ER patient was saturating 70% on room air, Solu-Medrol, magnesium was given to the patient, venous pCO2 was 119, WBC count 62, she had increased workup breathing and therefore patient was intubated 05/16 at around 11:00 p.m., blood pressure was 70/22 following intubation patient underwent cardiac arrest, CPR was resumed for 10 minutes-2 epis and 2 bicarb pushes were given to the patient. No defibrillation. Following that patient has been on vanc/Zosyn/azithromycin/Solu-Medrol 60 IV b.i.d./Versed/fentanyl/Levophed. Blood cultures preliminary negative, respiratory culture showing phlegm Lantus yeast, Gram-positive cocci, urine culture growing 1 lac Gram-negative rods, CT head was negative, troponin 1200 increasing to 7100, decreasing to 4500. BNP on arrival 809, lactic acidosis. Past medical/surgical history COPD on 3 L home oxygen, surgical aortic valve replacement 03/2024, myotonic muscle dystrophy, former nicotine dependence, hyperlipidemia, unspecified myeloproliferative disorder, hysterectomy, Home medication: Aspirin, prednisolone, atorvastatin , Trelegy inhaler Social history: Quit smoking 6 years back, uses a cane to ambulate. Chief Compliance Officer Dr. 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 Payton 05/19, Patient seen and examined in 112, sedation vacation was completed this morning, patient responded to commands by opening her eyes overnight 100.2 F low-grade fever, blood pressure 87 systolic to 121 systolic, 30% FiO2, urine output 700, prelim EF 20%, cardiology recommends left heart catheterization tomorrow. 05/20-patient seen and examined, chest x-ray shows right lower lobe opacity mixed respiratory acidosis with metabolic alkalosis, left heart catheterization today. WBC increased to twenty-seven, liver ultrasound shows Mildly dilated 7.5 mm common duct. Please correlate with laboratory values and consider MRCP if warranted. LFTs unremarkable. One set of blood culture positive for gram- positive cocci in clusters, patient on vanc. Re 05/21 -hypoactive bowel sounds, systolic murmur over femoral site of catheterization, no bleeding, no erythema, no swelling. Solu-Medrol decreased to 40 mg IV b.i.d., sedation turned off. On Levophed. CT chest without contrast shows 7.1 x 3.8 cm lobulated opacity in the right lower lobe. Bilateral dependent atelectasis, fpska-hqljjtl-jndx-left. Large right lower lobe lobulated opacity favored to reflect an infectious / inflammatory etiology. Doubt malignancy given size and no definite right lower lobe pulmonary nodules appreciated on 09/08/2024. Mildly prominent mediastinal nodes favored reactive. Centrilobular emphysema. Left heart catheterization showed Ventriculography in the SINGH projection shows an EF of about 25-30%. There is anterior apical and inferior apical hypokinesis and anterior and inferior mid and basal akinesis. This is an unusual presentation with we will be considered the reverse characteristics of a takotsubo syndrome. Lovenox decreased to 50 mg sc daily. Patient does not take any blood thinners at home. CPAP trial in a.m.. 05/22 - versed was off overnight, pt agitated in AM, versed, fent restarted, radiologist recommending to f/u [facility] imaging on the possible rounded atelectasis, no intervention. cpap tomorrow. On levophed 05/25- over weeend, patient failed CPAP trial, today CPAP trial, nif -18, patient tachycardic in the 140s, switched to AC mode. Lasix 20 mg IV twice given. CPAP trial in a.m.. 05/26-CPAP trial completed, patient alert, following commands, extubated today. On nasal cannula. BiPAP nocturnal. Discontinue triple-lumen, consultation for PICC line. Triple-lumen catheter, blood culture, sputum culture pending 05/27 - overnight refused bipap, switched ertapenam to meghann, patient alert and follows commands, full code per patient. superficial clot in RUE 05/28-overnight BiPAP, low-grade fever, DC Lasix, free water 150 q.6 started through NG tube. Hypernatremia low urine output. Patient alert, no active complaint. Lower extremity Doppler negative. 05/29 - patient a/ox2, reports no acute complaint, ST and PT eval, on NC 3L, bipapa hs, hypernatremia - free water and d5w 30cc/hr, downgraded loretta. Repeat blood cultures. Added lisinopril 2.5mg as GDMT - ef 20% 06/01 - over the weekend, low-grade fever 100.3, failed swallow eval. DC vancomycin. Change catheter Walter. Solu-Medrol switch to once daily. Addition of IV D5 to free water. Repeat BMP. Objective vital signs Vital Sign Date Time Temp Pulse Resp B/P (MAP) Pulse Ox O2 Delivery O2 Flow Rate FiO2 06/01/25 12:45 119 22 94 06/01/25 12:00 99.0 99.0 06/01/25 12:00 Nasal Cannula* 3 32 Total Intake and Output 05/31/25 05/31/25 06/01/25 15:00 23:00 07:00 Intake Total 275 ml 699 ml Output Total 425 ml Balance 275 ml 274 ml medications Current Medications Medications Dose Ordered Sig/Atilio Route Start Time Stop Time Status Last Admin Dose Admin Famotidine 20 mg Q12HR IV 05/17/25 10:00 06/01/25 10:36 20 MG Diagnostic Test (Pha) 1 strip Q6HR 05/17/25 00:00 06/01/25 12:13 1 STRIP Insulin Human Regular Q6HR SC 05/17/25 00:00 06/01/25 12:13 2 UNITS Dextrose 50 ml UD PRN IV 05/16/25 22:30 Ondansetron HCl 4 mg Q4HP PRN IV 05/16/25 22:30 Nitroglycerin 0.4 mg Q5MINP PRN SL 05/16/25 22:30 Acetaminophen 650 mg Q6HP PRN GT 05/17/25 11:45 05/28/25 23:11 650 MG Ipratropium [place] 0.5 mg Q6HR NEB 05/17/25 12:00 06/01/25 11:13 0.5 MG Budesonide 0.5 mg BID NEB 05/17/25 22:00 06/01/25 06:35 0.5 MG Enteral Nutritional Formula 1,000 ml 30ML/HR GT 05/18/25 14:30 06/01/25 05:15 1,000 ML Aspirin 81 mg DAILY PO 05/20/25 10:00 06/01/25 10:32 81 MG Lactulose 30 ml BID PO 05/21/25 10:00 05/31/25 21:22 30 ML Enoxaparin Sodium 40 mg DAILY SC 05/22/25 10:00 06/01/25 10:36 40 MG Levalbuterol HCl 1.25 mg Q6HR NEB 05/26/25 12:00 06/01/25 11:13 1.25 MG Sodium Chloride 10 ml QSHIFT@10,22 IV 05/26/25 22:00 06/01/25 10:36 10 ML Meropenem 50 ml @ 17 mls/hr Q8HR IV 05/27/25 22:00 06/01/25 15:48 17 MLS/HR Purified Water 150 ml Q6HR GT 05/28/25 08:30 06/01/25 12:11 150 ML Lisinopril 2.5 mg DAILY PO 05/29/25 10:00 06/01/25 10:35 2.5 MG Dextrose/Sodium Chloride 1,000 ml @ 50 mls/hr Q20H IV 06/01/25 09:30 06/01/25 09:30 50 MLS/HR Methylprednisolone Sodium Succinate 40 mg DAILY IV 06/02/25 10:00 UNV Examination Female patient lying in the bed comfortably, following commands, no acute distress General: Low-grade fever, palor, mucosae are moist Cardiovascular: Tachycardia but Regular S1 and S2. No murmurs, gallops or rubs. No JVD elevation. 1+ Pitting pedal edema Respiratory: Caorse b/l, Decreased breath sounds in the lower lobes, no wheezing heard Abdomen: Soft, nontender, nondistended, normoactive bowel sounds, no rebound tenderness, no organomegaly, no masses Genitourinary: Deferred MSK/skin: Skin is dry and warm Neuro: A&O x1, full code laboratory and microbiology Laboratory Tests 06/01/25 06:32 Test 06/01/25 06:32 Range/Units Serum Glucose 199 H 74-106 mg/dL Microbiology Date/Time Source Procedure Growth Status 05/29/25 13:00 Blood Blood Culture - Preliminary NO GROWTH AFTER 72 HOURS OF INCUBATION. Resulted 05/26/25 23:23 Catheter Tip Aerobic Culture - Final Complete 05/21/25 14:50 Urine - Walter Port Urine Culture - Final Complete 05/16/25 22:02 Sputum Gram Stain - Final Resulted 05/16/25 22:02 Sputum Respiratory Culture - Preliminary Resulted Labs and/or images reviewed: Labs reviewed by me, Image(s) reviewed by me Problem List/Assessment/Plan Problem List/Assessment/Plan NEURO: Chronic vessel ischemic disease Duchenne myotonic dystrophy CT head shows chronic vessel ischemic disease. No acute intracranial abnormality. CARDIOVASCULAR: Status post cardiac arrest Hypotension requiring pressor support NSTEMI likely type 1 Septic Shock secondary to pneumonia Heart failure with reduced ejection fraction Rule out ischemic cardiomyopathy Dyslipidemia Status post surgical aortic valve replacement 2023 Cardiology: Status post left heart catheterization, continue aspirin and atorvastatin Left heart catheterization showed Ventriculography in the SINGH projection shows an EF of about 25-30%. There is anterior apical and inferior apical hypokinesis and anterior and inferior mid and basal akinesis. This is an unusual presentation with we will be considered the reverse characteristics of a takotsubo syndrome. Lovenox decreased to 50 mg sc daily. Patient does not take any blood thinners at home. Echocardiogram left ventricular ejection fraction 25 20% Aspirin 81 mg daily, atorvastatin 40 mg p.o. HS daily Lovenox 1 mg/kg b.i.d. Added lisinopril 2.5mg daily as GDMT PULMONARY: Acute on chronic hypoxic respiratory failure status post intubation 05/16 extubation 05/26 Acute COPD exacerbation Chronic oxygen dependence Possible gram positive/Gram-negative pneumonia Former nicotine dependence 7.1 x 3.8 cm lobulated opacity - rounded atelectasis vs loculated effusion DC IV vancomycin, IV ertapenem, Solu-Medrol 40 daily IV ertapenem switched to IV meropenem 05/27 Ipratropium, albuterol, budesonide nebulized treatments Zosyn switched to IV ertapenem 05/19, erta switched to meropenam 05/27 CT chest without contrast shows 7.1 x 3.8 cm lobulated opacity in the right lower lobe. Bilateral dependent atelectasis, oefci-zdshfix-exxn-left. Large right lower lobe lobulated opacity favored to reflect an infectious / inflammatory etiology. Doubt malignancy given size and no definite right lower lobe pulmonary nodules appreciated on 09/08/2024. Mildly prominent mediastinal nodes favored reactive. Centrilobular emphysema. BiPAP nocturnal 08/21, now on nc Acetylcystein discontinue GASTROINTESTINAL: Transaminitis Dysphagia - failed swallow eval Ultrasound Mildly dilated 7.5 mm common duct. Please correlate with laboratory values GI surgical evaluation for PEG tube placement GENITOURINARY: Complicated Klebsiella ESBL cystitis History of ESBL UTI IV ertapenem, switched to IV meropenem 05/27 Discontinue vancomycin 06/01 HEMATOLOGY: Unspecified myeloproliferative disorder Leukocytosis Thrombocytosis Superficial thrombosis Thrombus in the right cephalic vein. CBC daily METABOLIC: ? Euthyroid sick syndrome Hypernatremia free water and d5 30cc/hr Monitor INFECTIOUS DISEASE: Septic shock likely due to pneumonia ESBL UTI Zosyn switched to IV ertapenem 05/19 Repeat cultures, 05/26 negative DIET: Tube feedings DVT prophylax: lovenox daily GI prophylaxis: Famotidine 20 twice daily Bowel regimen: Lactulose bid Code status: Full code LINES/DRAINS/ACCESS: IV access: Right IJ CVC 05/17 discontinued, PICC line 05/26 Drips: Off Versed fentanyl, off Levophed Walter catheter: 05/16, changed on 06/01 Failed swallow eval, social consulted for LTAC DISPOSITION: [place] Patient's status discussed with patient's son and daughter at bedside Critical care time spent more than 56 minutes, including patient care, chart review, and updating the family. Excluding any procedures Case discussed with Dr. Kern Plan discussed with: Son (At the bedside) My Orders My Orders Orders - GILLIAN MUSA RESIDENT Procedure Category Date Status Time D5w/Sod Chl 0.45% PHA 06/01/25 In Process (D5w 1/2ns) 09:30 Obtain Consent For: ORDERS 06/01/25 Transmitted 09:30 * Gi Dvh Cardiac Nurse Practitioner CONS 06/01/25 Transmitted 09:55 * Surgical Consult CONS 06/01/25 Transmitted Type And Screen BBK 06/02/25 Logged 04:00 Chest Xray 1 View XY 06/01/25 Resulted 10:05 Methylprednisolone PHA 06/02/25 Logged Sod Succ (Solu Medrol 10:00 * Cleaning Validation Consultant CONS 06/01/25 Transmitted Consult Ok To Change Watler ORDERS 06/01/25 Transmitted 15:51 Basic Metabolic Panel LAB 06/01/25 Logged 15:57 Dietary Evaluation Review Comments: 1) If patient remains NPO > 7 days, consider EN/TPN to meet at least 75% of estimated energy needs 2) If GI is preferred, consider Jevity 1.2 @ 35 mL/hr goal rate as tolerated. Flush with 200 mL free H2O Q6H. EN regimen will provide 1008 kcals, 47g Pro, 1478 mL free H2O (including flushes) per 24 hrs. Goal rate will meet ~97% estimated energy needs and 64% estimated protein needs 3) Advanced to regular diet when medically feasible, pending ST approval 4) Follow-up with pulmonology 5) Continue to monitor I&O, labs, and skin integrity Expected Outcomes/Goals: 1) labs to improve 2) patient to receive nutritional support within 7 days of NPO status 3) diet to advance 4) f/u in 2-3 days Date of Service: Jun 01, 2025 Billing Provider: FAREED KERN MD Common Visit Codes: [id number] CARE 30-74 MIN GILLIAN MUSA RESIDENT Jun 01, 2025 16:14 FAREED KERN MD Jun 02, 2025 17:20
[2025-06-01 17:09] LABS: Potassium 4.5 mmol/L (3.5-5.1)
[2025-06-01 17:10] LABS: Anion Gap 3 (5-15); Calcium 9.1 mg/dL (8.7-10.4)
[2025-06-01 17:13] LABS: Carbon Dioxide 35 mmol/L (20-31); Chloride 108 mmol/L (98-107); Sodium 146 mmol/L (136-145)
[2025-06-01 17:15] LABS: BUN/Creatinine Ratio 66.7 (10.0-20.0); Blood Urea Nitrogen 18 mg/dL (9-23)
[2025-06-01 17:16] LABS: Glucose 211 mg/dL (74-106)
--- NOTE | 2025-06-01 17:41 | DVHPN2 ---
Consult Progress Note Date Seen: Jun 01, 2025 Subjective Other Systems: No cardiac events reported Objective vital signs Vital Sign Date Time Temp Pulse Resp B/P (MAP) Pulse Ox O2 Delivery O2 Flow Rate FiO2 06/01/25 17:00 107 22 128/54 (78) 96 06/01/25 16:00 Nasal Cannula* 3 32 06/01/25 12:00 99.0 99.0 Total Intake and Output 05/31/25 05/31/25 06/01/25 14:59 22:59 06:59 Intake Total 275 ml 665 ml Output Total 425 ml Balance 275 ml 240 ml medications Current Medications Medications Dose Ordered Sig/Atilio Route Start Time Stop Time Status Last Admin Dose Admin Famotidine 20 mg Q12HR IV 05/17/25 10:00 06/01/25 10:36 20 MG Diagnostic Test (Pha) 1 strip Q6HR 05/17/25 00:00 06/01/25 12:13 1 STRIP Insulin Human Regular Q6HR SC 05/17/25 00:00 06/01/25 12:13 2 UNITS Dextrose 50 ml UD PRN IV 05/16/25 22:30 Ondansetron HCl 4 mg Q4HP PRN IV 05/16/25 22:30 Nitroglycerin 0.4 mg Q5MINP PRN SL 05/16/25 22:30 Acetaminophen 650 mg Q6HP PRN GT 05/17/25 11:45 05/28/25 23:11 650 MG Ipratropium [place] 0.5 mg Q6HR NEB 05/17/25 12:00 06/01/25 11:13 0.5 MG Budesonide 0.5 mg BID NEB 05/17/25 22:00 06/01/25 06:35 0.5 MG Enteral Nutritional Formula 1,000 ml 30ML/HR GT 05/18/25 14:30 06/01/25 05:15 1,000 ML Aspirin 81 mg DAILY PO 05/20/25 10:00 06/01/25 10:32 81 MG Lactulose 30 ml BID PO 05/21/25 10:00 05/31/25 21:22 30 ML Enoxaparin Sodium 40 mg DAILY SC 05/22/25 10:00 06/01/25 10:36 40 MG Levalbuterol HCl 1.25 mg Q6HR NEB 05/26/25 12:00 06/01/25 11:13 1.25 MG Sodium Chloride 10 ml QSHIFT@10,22 IV 05/26/25 22:00 06/01/25 10:36 10 ML Meropenem 50 ml @ 17 mls/hr Q8HR IV 05/27/25 22:00 06/01/25 15:48 17 MLS/HR Purified Water 150 ml Q6HR GT 05/28/25 08:30 06/01/25 12:11 150 ML Lisinopril 2.5 mg DAILY PO 05/29/25 10:00 06/01/25 10:35 2.5 MG Dextrose/Sodium Chloride 1,000 ml @ 50 mls/hr Q20H IV 06/01/25 09:30 06/01/25 09:30 50 MLS/HR Methylprednisolone Sodium Succinate 40 mg DAILY IV 06/02/25 10:00 Examination: LUNGS:Abnormal (Diminished), CVS:Normal (NSR), NEURO:Abnormal (A&O X2) laboratory and microbiology Laboratory Tests 06/01/25 16:45 06/01/25 06:32 Test 06/01/25 16:45 Range/Units Serum Glucose 211 H 74-106 mg/dL Problem List/Assessment/Plan Problem List/Assessment/Plan Septic shock with PNA NSTEMI with reverse takotsubo syndrome Acute on chronic hypoxic respiratory failure COPD exacerbation Hx of surgical aortic valve replacement (bioprosthetic, 2023) Hyperlipidemia Myotonic muscular dystrophy History of tobacco use Preprocedural cardiovascular examination Plan/Recommendation (Dr. Hawthorne) Transthoracic echocardiogram completed revealed there is anterior apical hypokinesis, anterior septal hypokinesis, global hypokinesis and LVEF is approximately 20-25% with normal right ventricular function. Given TTE, the patient underwent a cardiac catheterization deemed to be negative for coronary artery disease and positive for reverse Takotsubo syndrome. Initiate full GDMT for HFrEF an up-titrate as tolerated. Per Cardiology standpoint, the patient is at a moderate-risk for PEG tube placement. There is no additional cardiac workup indicated prior to surgery. Kindly call if in need to re-consult. Thank you for allowing us to care for this patient. Critical care time spent: 30 minutes. This medical document was created using an electronic medical record system with voice recognition software and computerized dictation system. Although this document has been carefully reviewed, there might still be some phonetic and typographical errors. Occasional wrong-word or ``sound-alike substitutions may have occurred due to the inherent limitations of voice recognition software. These areas are purely typographical due to imperfections of the software programs and do not reflect any compromise in the patient's medical care. Please read the chart carefully and recognize, using context, where these substitutions have occurred. Plan discussed with: Other Dietary Evaluation Review Comments: 1) If patient remains NPO > 7 days, consider EN/TPN to meet at least 75% of estimated energy needs 2) If GI is preferred, consider Jevity 1.2 @ 35 mL/hr goal rate as tolerated. Flush with 200 mL free H2O Q6H. EN regimen will provide 1008 kcals, 47g Pro, 1478 mL free H2O (including flushes) per 24 hrs. Goal rate will meet ~97% estimated energy needs and 64% estimated protein needs 3) Advanced to regular diet when medically feasible, pending ST approval 4) Follow-up with pulmonology 5) Continue to monitor I&O, labs, and skin integrity Expected Outcomes/Goals: 1) labs to improve 2) patient to receive nutritional support within 7 days of NPO status 3) diet to advance 4) f/u in 2-3 days Date of Service: Jun 01, 2025 Billing Provider: JUDE HAWTHORNE Sr., MD Cardiology Common Codes: [id number] CARE 30-74 MIN JIHAN KRUSE [facility] Jun 01, 2025 17:40
[2025-06-01] MEDS: METOPROLOL TARTRATE 25 MG TAB GT SCH (21:26)
[2025-06-02] VITALS (67 sets, daily range): BP systolic 78–124; BP diastolic 41–69; PULSE 95–125; RESP 18–29; TEMP 36.9; O2SAT 84–100
[2025-06-02] MEDS: MEROPENEM 1GM IVPB 50 ML IV ONE (04:25)
[2025-06-02 07:35] LABS: Anion Gap 5 (5-15); Calcium 8.9 mg/dL (8.7-10.4); Chloride 107 mmol/L (98-107); Hematocrit 29.1 % (36.0-46.0); Hemoglobin 9.9 g/dL (12.2-16.2); Mean Corpuscular Hemoglobin 31.4 pg (28.0-32.0); Mean Corpuscular Volume 92.5 fL (80.0-100.0); Potassium 4.2 mmol/L (3.5-5.1); Sodium 145 mmol/L (136-145)
[2025-06-02 07:41] LABS: BUN/Creatinine Ratio 59.1 (10.0-20.0); Blood Urea Nitrogen 13 mg/dL (9-23); Carbon Dioxide 33 mmol/L (20-31); Glucose 137 mg/dL (74-106); Magnesium 2.3 mg/dL (1.6-2.6)
[2025-06-02 08:39] LABS: Giant Platelets Few; RBC Morphology Normal; Total Cells Counted 100.0 (100)
[2025-06-02] MEDS: SPIRONOLACTONE 25 MG TAB GT SCH (10:00)
[2025-06-02] MEDS: EMPAGLIFLOZIN 10 MG TAB GT SCH (10:00)
[2025-06-02] MEDS: methylPREDNISolone SOD SUCC 40 MG/ML VL IV SCH (10:40)
--- NOTE | 2025-06-02 13:50 | DVHPN2 ---
Subjective Patient appears more alert today Daughter at bedside Patient attempted to eat applesauce a few times and able to swallow but complaining of pain with swallowing, status post extubation 05/26/2025 Telephone conversation with son Jarad Watson who has POA Reviewed: Care Plan Changes from previous H/P or p: No Changes General: Per HPI Eyes: No Pain, No Vision change, No Conjunctivae inflammation, No Eyelid inflammation, No Other, No Redness ENT: No Ear pain, No Ear discharge, No Nose pain, No Nose discharge, No Nose congestion, No Mouth pain, No Mouth swelling, No Throat pain, No Throat swelling, No Other Cardiovascular: No Chest Pain, No Palpitations, No Orthopnea, No Paroxysmal Noc. Dyspnea, No Edema, No Lt Headedness, No Other Respiratory: No Cough, No Dry; Shortness of breath, SOB with excertion, W heezing; No Hemoptysis, No Pleuritic Pain, No Sputum; Other (SOB at rest) Gastrointestinal: No Nausea, No Vomiting, No Abdominal Pain, No Diarrhea, No Constipation, No Melena, No Hematochezia, No Other Genitourinary: No Dysuria, No Frequency, No Incontinence, No Hematuria, No Retention, No Other Musculoskeletal: No other, No neck pain, No shoulder pain, No arm pain, No back pain, No hand pain, No leg pain, No foot pain Skin: No Rash, No Lesions, No Jaundice, No Bruising, No Other Objective Vitals Vital Signs Date Time Temp Pulse Resp B/P (MAP) Pulse Ox O2 Delivery O2 Flow Rate FiO2 06/02/25 13:27 118 22 97 06/02/25 13:21 Nasal Cannula* 2 28 06/02/25 11:48 97/57 (70) 06/02/25 04:00 98.5 98.5 Intake/Output Intake and Output 06/02/25 07:00 Intake Total 1740 ml Output Total 800 ml Balance 940 ml Intake Oral 600 ml IV Total 555 ml Tube Feeding 585 ml Output Urine Total 800 ml # Bowel Movements 1 General Appearance: Alert, Oriented X3, Cooperative, No acute distress, mild distress, moderate distress, severe distress, Other (Intubated, on vent) HEENT: Atraumatic Neck: Supple Lungs: Clear to auscultation, Normal air movement, Other Cardiovascular: Regular rate, Normal S1, Normal S2, No murmurs, Gallops, Rubs, Other Abdomen: Normal bowel sounds, Soft, No tenderness, No hepatospenomegaly, No masses, Other Medications Current Medications Medications Dose Ordered Sig/Atilio Route Start Time Stop Time Status Last Admin Dose Admin Famotidine 20 mg Q12HR IV 05/17/25 10:00 06/02/25 10:41 20 MG Diagnostic Test (Pha) 1 strip Q6HR 05/17/25 00:00 06/02/25 12:08 1 STRIP Insulin Human Regular Q6HR SC 05/17/25 00:00 06/02/25 12:11 2 UNITS Dextrose 50 ml UD PRN IV 05/16/25 22:30 Ondansetron HCl 4 mg Q4HP PRN IV 05/16/25 22:30 Nitroglycerin 0.4 mg Q5MINP PRN SL 05/16/25 22:30 Acetaminophen 650 mg Q6HP PRN GT 05/17/25 11:45 05/28/25 23:11 650 MG Ipratropium [place] 0.5 mg Q6HR NEB 05/17/25 12:00 06/02/25 13:21 0.5 MG Budesonide 0.5 mg BID NEB 05/17/25 22:00 06/02/25 06:25 0.5 MG Enteral Nutritional Formula 1,000 ml 30ML/HR GT 05/18/25 14:30 06/02/25 05:05 1,000 ML Lactulose 30 ml BID PO 05/21/25 10:00 06/02/25 10:40 30 ML Enoxaparin Sodium 40 mg DAILY SC 05/22/25 10:00 06/02/25 10:41 40 MG Levalbuterol HCl 1.25 mg Q6HR NEB 05/26/25 12:00 06/02/25 13:21 1.25 MG Sodium Chloride 10 ml QSHIFT@10,22 IV 05/26/25 22:00 06/02/25 10:41 10 ML Meropenem 50 ml @ 17 mls/hr Q8HR IV 05/27/25 22:00 06/02/25 05:05 17 MLS/HR Lisinopril 2.5 mg DAILY PO 05/29/25 10:00 06/01/25 10:35 2.5 MG Methylprednisolone Sodium Succinate 40 mg DAILY IV 06/02/25 10:00 06/02/25 10:40 40 MG Empaglifozin 10 mg DAILY GT 06/02/25 10:00 Spironolactone 12.5 mg DAILY GT 06/02/25 10:00 Metoprolol Tartrate 12.5 mg BID GT 06/01/25 22:00 06/01/25 21:26 12.5 MG Laboratory Results Laboratory Tests 06/02/25 06:15 Chemistry Test 06/01/25 16:45 06/02/25 06:15 Calcium Level 9.1 mg/dL (8.7-10.4) 8.9 mg/dL (8.7-10.4) Magnesium Level 2.3 mg/dL (1.6-2.6) Coagulation Test 06/01/25 14:30 Prothrombin Time 12.6 sec (9.3-11.8) H Prothrombin Time INR 1.21 (0.9-1.15) H Activated Partial Thromboplast Time 37.7 SEC (24.5-34.5) H Urinalysis Test 05/17/25 23:40 Urine Color Yellow (Yellow) Urine Clarity Ex.turbid (Clear) Urine pH 5.5 (5.0-9.0) Urine Specific [place] 1.023 (1.001-1.035) Urine Protein Trace (Negative) H Urine Ketones Trace (Negative) Urine Blood Trace /uL (Negative) H Urine Nitrite Negative (Negative) Urine Bilirubin Negative (Negative) Urine Urobilinogen Normal mg/dL (Negative) Urine Leukocyte Esterase Negative /uL (Negative) Urine RBC 20 /hpf (0 - 4) Urine Microscopic WBC 6 /HPF (0-5) H Urine Squamous Epithelial Cells Few /hpf (<5) Urine Uric Acid Crystals Mod /hpf (None Seen) Urine Amorphous Crystals Few /hpf (None Seen) Urine Bacteria None seen /hpf (None Seen) Urine Granular Casts Few /lpf (0) Urine Glucose Normal mg/dL (Normal) Microbiology Microbiology Date/Time Source Procedure Growth Status 05/29/25 13:00 Blood Blood Culture - Preliminary NO GROWTH AFTER 72 HOURS OF INCUBATION. Resulted 05/26/25 23:23 Catheter Tip Aerobic Culture - Final Complete 05/21/25 14:50 Urine - Anaya [place] Urine Culture - Final Complete 05/16/25 22:02 Sputum Gram Stain - Final Resulted 05/16/25 22:02 Sputum Respiratory Culture - Preliminary Resulted Labs and/or images reviewed: Labs reviewed by me, Image(s) reviewed by me Assessment/Plan Assessment/Plan Respiratory failure COPD Cardiac arrest status post ROSC Myotonic muscular dystrophy Failed swallow evaluation Odynophagia Plan: Discussed with Dr. Celaya Tentative plan for possible EGD with PEG placement for Sunday We will attempt to continue to feed patient with applesauce if tolerating Explained procedure extensively to patient daughter at bedside and son Lokesh by telephone conversation including discussion of risks benefits and alternatives of the procedure and sedation and the risks involved with sedation also Plan discussed with: Patient, Daughter, Son, Other (RN) Date of Service: Jun 02, 2025 Billing Provider: LUIS DO Common Visit Codes: [id number] INP/OBS CARE(HIGH) LUIS DO Jun 02, 2025 13:49
[2025-06-02] MEDS: FUROSEMIDE 20 MG/2 ML VIAL IV ONE (17:40)
--- NOTE | 2025-06-02 19:25 | DVHDSRES ---
Discharge Summary Date of Admission Resident Creating Document: GILLIAN MUSA RESIDENT May 16, 2025 at 22:27 Date of Discharge: Jun 02, 2025 Labs/Diagnostic Data: Laboratory Results Test 06/02/25 17:41 06/02/25 06:15 06/01/25 14:30 06/01/25 06:32 POC Glucose 169 mg/dl (70-106) White Blood Count 28.3 10^3/uL (4.4-10.8) Red Blood Count 3.15 10^6/uL (4.0-5.20) Hemoglobin 9.9 g/dL (12.2-16.2) Hematocrit 29.1 % (36.0-46.0) Mean Corpuscular Volume 92.5 fL (80.0-100.0) Mean Corpuscular Hemoglobin 31.4 pg (28.0-32.0) Mean Corpuscular Hemoglobin Concent 34.0 g/dL (32.0-36.0) Red Cell Distribution Width 14.2 % (11.8-14.3) Platelet Count 213 10^3/uL (140-450) Mean Platelet Volume 9.9 fL (6.9-10.8) Neutrophils (%) (Auto) % (37.0-80.0) Lymphocytes (%) (Auto) % (10.0-50.0) Monocytes (%) (Auto) % (0.0-12.0) Basophils (%) (Auto) % (0.0-2.0) Neutrophils # (Auto) 10 ^3/uL (1.6-8.6) Lymphocytes # (Auto) 10 ^3/uL (0.4-5.4) Monocytes # (Auto) 10 ^3/uL (0-1.3) Differential Total Cells Counted 100.0 (100) Neutrophils % (Manual) 71 (37.0-80.0) Band Neutrophils % (Manual) 1 Lymphocytes % (Manual) 6 (10.0-50.0) Monocytes % (Manual) 20 (0-12) Eosinophils % (Manual) 0 (0-7) Basophils % (Manual) 0 (0.0-2.0) Metamyelocytes % (manual) 1 Myelocytes % (Manual) 1 Promyelocytes % (Manual) 0 Blast Cells % (Manual) 0 Reactive Lymphocytes 0 Platelet Estimate Adequate Giant Platelets Few Red Blood Cell Morphology Normal Sodium Level 145 mmol/L (136-145) Potassium Level 4.2 mmol/L (3.5-5.1) Chloride Level 107 mmol/L (98-107) Carbon Dioxide Level 33 mmol/L (20-31) Anion Gap 5 (5-15) Blood Urea Nitrogen 13 mg/dL (9-23) Creatinine 0.22 mg/dL (0.550-1.02) Glomerular Filtration Rate Calc 129 mL/min (>90) BUN/Creatinine Ratio 59.1 (10.0-20.0) Serum Glucose 137 mg/dL (74-106) Calcium Level 8.9 mg/dL (8.7-10.4) Magnesium Level 2.3 mg/dL (1.6-2.6) Prothrombin Time 12.6 sec (9.3-11.8) Prothrombin Time INR 1.21 (0.9-1.15) Activated Partial Thromboplast Time 37.7 SEC (24.5-34.5) Stomatocytes Few Test 05/31/25 16:01 05/30/25 06:05 05/29/25 06:55 05/29/25 03:08 Anisocytosis (manual) Slight Vancomycin Level Trough 10.0 ug/mL (5-10) Total Bilirubin 0.9 mg/dL (0.2-1.0) Aspartate Amino Transferase (AST) 50 U/L (13-40) Alanine Aminotransferase (ALT) 79 U/L (7-40) Alkaline Phosphatase 107 U/L (46-116) Total Protein 4.3 g/dL (5.7-8.2) Albumin 2.9 g/dL (3.2-4.8) Blood Gas Specimen Type Arterial Blood Gas Sample Site Right radial Blood Gas Patient Temperature 37.0 Arterial Blood Date Drawn [id number] Arterial Blood pH 7.390 (7.350-7.450) Arterial Blood Partial Pressure CO2 47.1 mmHg (32.0-45.0) Arterial Blood Partial Pressure O2 87.1 mmHg (83.0-108.0) Arterial Blood HCO3 27.9 mmol/L (21.0-28.0) Arterial Blood Oxygen Saturation 96.0 % (94.0-98.0) Arterial Blood Base Excess 2.3 mmol/L (-2.0-3.0) Arterial Blood Oxyhemoglobin 94.8 % (94.0-98.0) Arterial Blood Carboxyhemoglobin 1.1 % (0.5-1.5) Arterial Blood Methemoglobin 0.2 % (0.0-1.5) Gurmeet Test Modified Blood Gas Total Hemoglobin 12.60 g/dL (12.0-16.0) Blood Gas Liter Flow 3.00 Blood Gas Modality Vent - ac FiO2 % 32.0 Nucleated Red Blood Cells 1.0 % Random Vancomycin Level 13.6 ug/mL (5-10) Test 05/27/25 13:50 05/27/25 03:25 05/26/25 13:30 05/26/25 10:07 Lactic Acid Level 1.7 mmol/L (0.4-2.0) Smudge Cells 5 /100 WBC Blood Gas Pressure Support 7 Blood Gas EPAP 5 Blood Gas IPAP 12 Blood Gas PEEP or CPAP 5.0 Test 05/26/25 07:46 05/22/25 03:15 05/19/25 12:56 05/19/25 03:10 Blood Gas Set Respiration Rate 22.0 Blood Gas Tidal Volume 400.0 Large Platelets Few Free Thyroxine (T4) Calculated 0.98 ng/dL (0.89-1.76) Total Triiodothyronine (TT3) 0.54 ng/mL (0.60-1.81) Troponin I High Sensitivity 4568 ng/L (</=34) Test 05/18/25 03:25 05/17/25 23:40 05/17/25 05:11 05/16/25 23:15 B-Type Natriuretic Peptide 809.49 pg/mL (0-100) Triglycerides Level 198 mg/dL (< 150) Cholesterol Level 116 mg/dL (< 200) LDL Cholesterol 54 mg/dL (< 100) HDL Cholesterol 34 mg/dL (40-59) Thyroid Stimulating Hormone (TSH) 0.31 uIU/mL (0.55-4.78) Urine Color Yellow (Yellow) Urine Clarity Ex.turbid (Clear) Urine pH 5.5 (5.0-9.0) Urine Specific [place] 1.023 (1.001-1.035) Urine Protein Trace (Negative) Urine Ketones Trace (Negative) Urine Blood Trace /uL (Negative) Urine Nitrite Negative (Negative) Urine Bilirubin Negative (Negative) Urine Urobilinogen Normal mg/dL (Negative) Urine Leukocyte Esterase Negative /uL (Negative) Urine RBC 20 /hpf (0 - 4) Urine Microscopic WBC 6 /HPF (0-5) Urine Squamous Epithelial Cells Few /hpf (<5) Urine Uric Acid Crystals Mod /hpf (None Seen) Urine Amorphous Crystals Few /hpf (None Seen) Urine Bacteria None seen /hpf (None Seen) Urine Granular Casts Few /lpf (0) Urine Glucose Normal mg/dL (Normal) Influenza Type A Antigen Negative (Negative) Influenza Type B Antigen Negative (Negative) SARS-CoV-2 Antigen (Rapid) Negative (NEGATIVE) Blood Gas Critical Value Read Back Yes Blood Gas Notified Whom Md. kvng zamora Blood Gas Notified Time [id number] Blood Gas Notified By Rt b das Test 05/16/25 20:17 05/16/25 20:08 Target Cells Hemoglobin A1c 4.2 % A1C (<5.7) Venous Blood pH 7.031 (7.320-7.430) Venous Blood pCO2 at Patient Temp 119.2 mmHg (38.0-54.0) Venous Blood pO2 at Patient Temp < 36.5 mmHg (23.0-48.0) Venous Blood HCO3 30.9 mmol/L (22.0-29.0) Venous Blood Base Excess -3.7 mmol/L (-2.0-3.0) Specimen Drawn By [facility] Other Laboratory Tests 06/02/25 06:15 Brief Hx & Hospital Course: This is a 64-year-old female with COPD on 3 L home oxygen, surgical aortic valve replacement 03/2024, myotonic muscle dystrophy, former nicotine dependence, hyperlipidemia, unspecified myeloproliferative disorder who presented to the ER on 05/16 for the evaluation of shortness of breaths. Per son at the bedside, patient recently lost her dog and was very emotional under stress, she started experiencing shortness of breaths for the past day, associated with wheezing. Past medical/surgical history COPD on 3 L home oxygen, surgical aortic valve replacement 03/2024, myotonic muscle dystrophy, former nicotine dependence, hyperlipidemia, unspecified myeloproliferative disorder, hysterectomy, Home medication: Aspirin, prednisolone, atorvastatin , Trelegy inhaler Social history: Quit smoking 6 years back, uses a cane to ambulate. [employer] Dr. 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 King On arrival to the ER patient was saturating 70% on room air, Solu-Medrol, magnesium was given to the patient, venous pCO2 was 119, WBC count 62, she had increased workup breathing and therefore patient was intubated 05/16 at around 11:00 p.m., blood pressure was 70/22 following intubation patient underwent cardiac arrest, CPR was resumed for 10 minutes-2 epis and 2 bicarb pushes were given to the patient. No defibrillation. Following that patient has been on vanc/Zosyn/azithromycin/Solu-Medrol 60 IV b.i.d./Versed/fentanyl/Levophed. Blood cultures preliminary negative, respiratory culture showing phlegm Lantus yeast, Gram-positive cocci, urine culture growing 1 lac Gram-negative rods, CT head was negative, troponin 1200 increasing to 7100, decreasing to 4500. BNP on arrival 809, lactic acidosis. Echocardiogram completed-EF 20%, patient underwent left heart cath 05/20 - Ventriculography in the SINGH projection shows an EF of about 25-30%. There is anterior apical and inferior apical hypokinesis and anterior and inferior mid and basal akinesis. This is an unusual presentation with we will be considered the reverse characteristics of a takotsubo syndrome. Solu-Medrol decreased to 40 mg b.i.d, Zosyn was switched to IV ertapenem based on ESBL in urine. CT chest without contrast shows 7.1 x 3.8 cm lobulated opacity in the right lower lobe. Bilateral dependent atelectasis, [id number]. Large right lower lobe lobulated opacity favored to reflect an infectious / inflammatory etiology. Doubt malignancy given size and no definite right lower lobe pulmonary nodules appreciated on 09/08/2024. Mildly prominent mediastinal nodes favored reactive. Centrilobular emphysema. Radiologist recommending to f/u [facility] imaging on the possible rounded atelectasis, no intervention. Patient failed CPAP trial 05/25, CPAP trial completed 05/26 and patient was extubated. Following extubation, Levophed was turned off. All sedatives were turned off. Patient was kept on 01/19 nocturnal, daytime nasal cannula. PICC line was placed and triple-lumen was discontinued. Given the white blood cell count, ertapenem was switched to meropenem. Repeat blood cultures were negative, urine culture was negative Patient failed swallow eval twice, surgery and GI consultation was completed for peg tube placement, patient and family agreed. Anaya catheter was changed 06/01. rehabilitation services aide was consulted for LTAC placement and patient was accepted at [facility], following which patient was transferred, possible PEG tube placement at LTAC. Low-dose lisinopril and GDMT including spironolactone, metoprolol, Jardiance for initiated and to be continued with the at LTAC. 06/02 - hemodynamically stable, on 3 L nasal cannula, alert and oriented, patient discharged to LTAC with PICC line 05/26 and Anaya 06/01, on steroid taper, antibiotics were discontinued. NPO, tube feedings. Peg tube eval at LTAC. Patient and family including son agreed with the discharge planning. Patient's family including son and daughter were included in daily hospital discussions, prognosis and outcomes, discharge discussions critical care time spent in discharge planning to LTACH was 41 mins Operations or Procedures Operative Report - 2 Report Details Date: 05/20/25 Preop Diagnosis: CAD. Postop Diagnosis: Cardiomyopathy Surgeon: Jude Obrien MD Anesthesiologist: Conscious sedation Anesthesia: Mac, Local Consent: The patient was informed of the risks and benefits of the procedure. These include but are not limited to complications of anesthesia, postoperative infection, incomplete relief of symptoms, recurrence of symptoms, damage to blood vessels, nerves and tendons, deep venous thrombosis, pulmonary embolism and possible need for repeat surgery in the future. Complications: No complications Findings: Normal coronaries. Cardiomyopathy. Indications for Surgery: Cardiomyopathy. Elevated troponins. Name of Procedure Performed Left heart catheterization. Bilateral cine coronary angiography. Left ventriculography. Procedure Details Procedure Details: Prior local anesthesia with 2% lidocaine to the right groin and full informed consent obtained the patient was prepped and draped in usual fashion followed by placement of a six [place] sheath into the femoral artery. Alvina catheters and a pigtail catheter was used for cannulation of both right and left coronary ostia and ventriculography. No complications. Hemodynamics: Aortic blood pressure was 117 over 70. End-diastolic pressure was 10. There was a 13 mm gradient across the aortic valve on pullback consistent with mild aortic sclerosis given a prosthetic aortic valve. Coronary anatomy: the RCA is a large vessel it is normal in its proximal mid and distal segments PDA and posterolateral branches are normal. Left main is large and normal. Left anterior descending is large and normal with two diagonals free of significant disease. The circumflex is a large vessel it is given off two marginal branches free of significant disease. Ventriculography in the SINGH projection shows an EF of about 25-30%. There is anterior apical and inferior apical hypokinesis and anterior and inferior mid and basal akinesis. This is an unusual presentation with we will be considered the reverse characteristics of a takotsubo syndrome. Impression: Normal left ventricular end-diastolic pressure at rest with markedly decreased left ventricular ejection fraction. Normal end-diastolic pressures. Small gradient across the aortic valve consistent with aortic sclerosis and with the prosthetic aortic valve. Recommendations: Continue medical therapy risk factor modifications to continue. Afterload reduction therapy and [id number] degree avoiding hypotensive events. Condition Good Disposition 2 Still a Patient Date of Service: May 20, 2025 Billing Provider: JUDE OBRIEN Sr., MD Cardiology Common Codes: [id number] INP/OBS CARE (High) Cardiology Procedure Codes: [id number] HEART CATH W/INTRA INJ JUDE OBRIEN Sr., MD May 20, 2025 18:56 DICTATED BY:JUDE OBRIEN Sr., MD DICTATED DATE/TIME:05/20/251855 ELECTRONICALLY SIGNED BY:JUDE OBRIEN Sr., MD 05/20/251855 ELECTRONICALLY CO-SIGNED BY: Condition at Discharge: Fair Final Diagnosis/Problems List Acute on chronic hypoxic respiratory failure status post intubation 05/16 extubation 05/26 Acute COPD exacerbation Chronic oxygen dependence Possible gram positive/Gram-negative pneumonia 7.1 x 3.8 cm lobulated opacity -likely rounded atelectasis/loculated effusion Status post cardiac arrest Hypotension requiring pressor support NSTEMI likely type 1 Septic Shock secondary to pneumonia Heart failure with reduced ejection fraction - newly diagnosed Complicated Klebsiella ESBL cystitis and History of ESBL UTI Transaminitis likely shock liver Odynophagia- failed swallow eval Dyslipidemia Status post surgical aortic valve replacement 2023 Chronic vessel ischemic disease Unspecified myeloproliferative disorder Leukocytosis Thrombocytosis Superficial venous thrombosis History of muscular dystrophy Former nicotine dependence Severe protein calorie malnutrition Discharge Disposition: Halfway Facility Discharge Instruct/Medications Diet: See Comment Diet comment: tube feedings Activity: Light activity Follow Up/Referral: follow up with primary care physician Medications: per emr Scheduled Acetaminophen (Tylenol 8 Hour Arthritis), 650 MG PO TID Aspirin (Aspir-Low), 81 MG PO DAILY, (Reported) Doxycycline (Monohydrate) (Doxycycline), 100 MG PO BID Methocarbamol (Methocarbamol), 750 MG PO BID Prednisone (Prednisone), 20 MG PO BID Miscellaneous Medications Atorvastatin Calcium (Atorvastatin Calcium), PO, (Reported) Discharge Statement: "Patient was advised to return to the ER or call 911 if any headaches, dizziness, shortness of breath, chest pain, abdominal pain, bleeding, fevers, or worsening of medical condition. Patient was counseled about treatment plan, medications, possible side effects, patientverbalized understanding. All questions were answered to the best of my ability. This discharge took greater then 30 minutes in planning, reviewing documentation, counseling the patient, and discussing with other team members." ASSESSMENT ASSESSMENT Assessment COPD exacerbation Date of Service: Jun 02, 2025 Billing Provider: FAREED KERN MD Common Visit Codes: [id number] CARE 30-74 MIN GILLIAN MUSA RESIDENT Jun 02, 2025 19:25 FAREED KERN MD Jun 06, 2025 12:42
--- NOTE | 2025-06-02 22:28 | DVHPN2 ---
Progress Note - Dictate Date Seen: Jun 02, 2025 Medical Necessity Reason Pt with a Central, PICC or Fol: Yes The following are medically ne: PICC Line, Walter Catheter Reason for walter catheter: Strict I&O Subjective Ms. Bauman is a 64 years old right-handed female with a history of dyslipidemia, asthma, aortic stenosis, COPD, myeloproliferative disorder, myotonic muscular dystrophy, the patient was taken to the hospital with a chief complaint of shortness of breath, I have seen and examined the patient, I have talked to her nurse, eyes are open, she is oriented to person, place, follows verbal commands, socially appropriate, but she is weak CBC, 05/16/2021: Respiratory acidosis, 05/17/2025: Respiratory acidosis, 05/18/25: Hypoxia, carbon dioxide retention WBC/HB/PLT/MCV, 05/16/2025: 62.5/15. 4/640/94.2, 05/17/2025: 72.6/16.1/520/91.2, 05/18/2025: 25.1/13.3/248/90.4 BUN/CR, 05/17/2025: 15/0.56 GFR, 05/17/2025: 103 Lactic acid, 05/16/25: 5.3 HGB A1c, 05/16/2025: 4.2 Troponin one high sensitivity, 05/16/2025: 1209, 2081, 4211, 05/18/2025: 7100 TBI/AST/ALT/AP, 05/17/2025: 1.8/86/25/183 TG/HDL/LDL/HDL, 05/18/2025: 198/116/54/34 Extremity venous study, 05/27/2025: Thrombus in the right cephalic vein. If clinical concern/symptoms persist or worsen, short-interval follow-up study is suggested. KUB, 05/22/2025: Nonobstructive bowel gas pattern. Nasogastric tube tip in the stomach CT head, 05/17/2025: 1. No acute intracranial abnormality. 2. Chronic sequelae of microvascular disease CT head, 05/18/2025: No acute intracranial abnormality seen. Advanced chronic small vessel ischemic eubanks CT chest, 05/21/2025: 1. Large right lower lobe lobulated opacity favored to reflect an infectious / inflammatory etiology. Doubt malignancy given size and no definite right lower lobe pulmonary nodules appreciated on 09/08/2024. 2. Mildly prominent mediastinal nodes favored reactive. 3. Centrilobular emphysema. vital signs Vital Sign Date Time Temp Pulse Resp B/P (MAP) Pulse Ox O2 Delivery O2 Flow Rate FiO2 06/02/25 20:00 26 95 Nasal Cannula* 3 32 06/02/25 20:00 120 06/02/25 20:00 98.8 110/61 (77) 98.8 Total Intake and Output 06/01/25 06/01/25 06/02/25 15:00 23:00 07:00 Intake Total 292 ml 813 ml 635 ml Output Total 400 ml 400 ml Balance 292 ml 413 ml 235 ml medications Current Medications Medications Dose Ordered Sig/Atilio Route Start Time Stop Time Status Last Admin Dose Admin Famotidine 20 mg Q12HR IV 05/17/25 10:00 06/02/25 10:41 20 MG Diagnostic Test (Pha) 1 strip Q6HR 05/17/25 00:00 06/02/25 17:45 1 STRIP Insulin Human Regular Q6HR SC 05/17/25 00:00 06/02/25 17:47 3 UNITS Dextrose 50 ml UD PRN IV 05/16/25 22:30 Ondansetron HCl 4 mg Q4HP PRN IV 05/16/25 22:30 Nitroglycerin 0.4 mg Q5MINP PRN SL 05/16/25 22:30 Acetaminophen 650 mg Q6HP PRN GT 05/17/25 11:45 05/28/25 23:11 650 MG Ipratropium [place] 0.5 mg Q6HR NEB 05/17/25 12:00 06/02/25 19:07 0.5 MG Budesonide 0.5 mg BID NEB 05/17/25 22:00 06/02/25 19:08 0.5 MG Enteral Nutritional Formula 1,000 ml 30ML/HR GT 05/18/25 14:30 06/02/25 05:05 1,000 ML Lactulose 30 ml BID PO 05/21/25 10:00 06/02/25 10:40 30 ML Enoxaparin Sodium 40 mg DAILY SC 05/22/25 10:00 06/02/25 10:41 40 MG Levalbuterol HCl 1.25 mg Q6HR NEB 05/26/25 12:00 06/02/25 19:07 1.25 MG Sodium Chloride 10 ml QSHIFT@10,22 IV 05/26/25 22:00 06/02/25 10:41 10 ML Meropenem 50 ml @ 17 mls/hr Q8HR IV 05/27/25 22:00 06/02/25 13:51 17 MLS/HR Lisinopril 2.5 mg DAILY PO 05/29/25 10:00 06/01/25 10:35 2.5 MG Methylprednisolone Sodium Succinate 40 mg DAILY IV 06/02/25 10:00 06/02/25 10:40 40 MG Empaglifozin 10 mg DAILY GT 06/02/25 10:00 Spironolactone 12.5 mg DAILY GT 06/02/25 10:00 Metoprolol Tartrate 12.5 mg BID GT 06/01/25 22:00 06/01/25 21:26 12.5 MG objective The patient is well-nourished and well-developed with no distress. MENTAL STATUS: Subjective Language: No aphasia, her voice is soft and slurry CRANIAL NERVES: Pupils are round and reactive, small. There conjugated eye movement. No signs of facial weakness. Motor and sensory examined in bilateral trigeminal distribution is fine SENSATION: Okay to pinprick and light touch MOTOR: Normal tone in the upper and lower extremity. Normal muscle bulk. No fasciculations. Muscle power in the upper extremity: Shoulder: 2/5, elbow 2- 4/5, grippin/5. Lower extremities: 2/5. Stronger in the feet REFLEXES: Deep tendon reflexes are symmetrical. CEREBELLAR/COORDINATION: Deferred GAIT/STATION: deferred. laboratory and microbiology Laboratory Tests 06/02/25 06:15 Test 06/02/25 06:15 Range/Units Serum Glucose 137 H 74-106 mg/dL Problem List Cardiopulmonary arrest Coma, resolved Metabolic encephalopathy Hypoxic encephalopathy Toxic encephalopathy Acute respiratory failure, improving Chronic respiratory failure/COPD on home oxygen Elevated troponin I high sensitivity/heart attack Deep venous thrombosis Myeloproliferative disorder ICU myopathy Assessment/Plan Monitoring Supportive treatment [facility] care Follow up labs Stabilize vitals Respiratory support Oxygen IV antibiotics Lovenox 40 mg subQ daily Aspirin 81 mg daily GI prophylaxis/famotidine More recommendation per clinical course This medical document was created using an electronic medical record system with [employer] dictation system. Although this document has been carefully reviewed, there may still be some phonetic and typographical errors. These areas are purely typographical due to imperfections of the software programs, and do not reflect any compromise in the patient's medical care Prognosis poor Dietary Evaluation Review Comments: 1) If patient remains NPO > 7 days, consider EN/TPN to meet at least 75% of estimated energy needs 2) If GI is preferred, consider Jevity 1.2 @ 35 mL/hr goal rate as tolerated. Flush with 200 mL free H2O Q6H. EN regimen will provide 1008 kcals, 47g Pro, 1478 mL free H2O (including flushes) per 24 hrs. Goal rate will meet ~97% estimated energy needs and 64% estimated protein needs 3) Advanced to regular diet when medically feasible, pending ST approval 4) Follow-up with pulmonology 5) Continue to monitor I&O, labs, and skin integrity Expected Outcomes/Goals: 1) labs to improve 2) patient to receive nutritional support within 7 days of NPO status 3) diet to advance 4) f/u in 2-3 days Plan discussed with: Other FÉLIX MCDOWELL MD Jun 02, 2025 22:28
== END 2025-06-02 22:40 | DRG 720 ==
LOC: EDUNIT# 19:51 → EDBD 19:51 → ER 19:51 → OVERFLOW 22:27 → ICU WEST 23:38 → DOU 05-29 15:27
PROVIDERS: ADMIT Internal Medicine; ATTEND Internal Medicine
PROC: 5A12012 Performance of Cardiac Output, Single, Manual (ICD-10-PCS; principal; 2025-05-16)
PROC: 5A1955Z Respiratory Ventilation, Greater than 96 Consecutive Hours (ICD-10-PCS; 2025-05-16)
PROC: 0BH17EZ Insertion of Endotracheal Airway into Trachea, Via Natural or Artificial Opening (ICD-10-PCS; 2025-05-16)
PROC: 02HV33Z Insertion of Infusion Device into Superior Vena Cava, Percutaneous Approach (ICD-10-PCS; 2025-05-16)
PROC: 4A023N7 Measurement of Cardiac Sampling and Pressure, Left Heart, Percutaneous Approach (ICD-10-PCS; 2025-05-20)
PROC: B211YZZ Fluoroscopy of Multiple Coronary Arteries using Other Contrast (ICD-10-PCS; 2025-05-20)
PROC: B215YZZ Fluoroscopy of Left Heart using Other Contrast (ICD-10-PCS; 2025-05-20)
PROC: 02HV33Z Insertion of Infusion Device into Superior Vena Cava, Percutaneous Approach (ICD-10-PCS; 2025-05-26)
PROC: B548ZZA Ultrasonography of Superior Vena Cava, Guidance (ICD-10-PCS; 2025-05-26)
PROC: 5A09357 Assistance with Respiratory Ventilation, Less than 24 Consecutive Hours, Continuous Positive Airway Pressure (ICD-10-PCS; 2025-05-26)
PROC: 5A09357 Assistance with Respiratory Ventilation, Less than 24 Consecutive Hours, Continuous Positive Airway Pressure (ICD-10-PCS; 2025-05-27)
PROC: 5A0935A Assistance with Respiratory Ventilation, Less than 24 Consecutive Hours, High Flow/Velocity Cannula (ICD-10-PCS; 2025-05-27)
PROC: 5A09357 Assistance with Respiratory Ventilation, Less than 24 Consecutive Hours, Continuous Positive Airway Pressure (ICD-10-PCS; 2025-05-28)
PROC: 5A0935A Assistance with Respiratory Ventilation, Less than 24 Consecutive Hours, High Flow/Velocity Cannula (ICD-10-PCS; 2025-05-28)
PROC: 5A09357 Assistance with Respiratory Ventilation, Less than 24 Consecutive Hours, Continuous Positive Airway Pressure (ICD-10-PCS; 2025-05-29)
DX: A41.50 Gram-negative sepsis, unspecified (principal); I46.9 Cardiac arrest, cause unspecified; R65.21 Severe sepsis with septic shock; J96.22 Acute and chronic respiratory failure with hypercapnia; G92.8 Other toxic encephalopathy; G93.1 Anoxic brain damage, not elsewhere classified; J96.21 Acute and chronic respiratory failure with hypoxia; E43 Unspecified severe protein-calorie malnutrition; I21.4 Non-ST elevation (NSTEMI) myocardial infarction; J15.69 Pneumonia due to other Gram-negative bacteria; Z20.822 Contact with and (suspected) exposure to COVID-19; E87.4 Mixed disorder of acid-base balance; I82.611 Acute embolism and thrombosis of superficial veins of right upper extremity; J15.9 Unspecified bacterial pneumonia; J44.1 Chronic obstructive pulmonary disease with (acute) exacerbation; D47.1 Chronic myeloproliferative disease; D72.820 Lymphocytosis (symptomatic); D75.839 Thrombocytosis, unspecified; E87.6 Hypokalemia; I25.10 Atherosclerotic heart disease of native coronary artery without angina pectoris; G71.11 Myotonic muscular dystrophy; I42.9 Cardiomyopathy, unspecified; J43.9 Emphysema, unspecified; E78.5 Hyperlipidemia, unspecified; I35.0 Nonrheumatic aortic (valve) stenosis; J44.0 Chronic obstructive pulmonary disease with (acute) lower respiratory infection; I50.20 Unspecified systolic (congestive) heart failure; E80.6 Other disorders of bilirubin metabolism; R74.01 Elevation of levels of liver transaminase levels; Z16.12 Extended spectrum beta lactamase (ESBL) resistance; N30.90 Cystitis, unspecified without hematuria; J98.11 Atelectasis; R40.20 Unspecified coma; F91.9 Conduct disorder, unspecified; R13.10 Dysphagia, unspecified; I51.81 Takotsubo syndrome; E87.0 Hyperosmolality and hypernatremia; Z90.710 Acquired absence of both cervix and uterus; Z82.49 Family history of ischemic heart disease and other diseases of the circulatory system; Z87.891 Personal history of nicotine dependence; Z99.81 Dependence on supplemental oxygen; Z79.899 Other long term (current) drug therapy; Z79.82 Long term (current) use of aspirin; Z95.1 Presence of aortocoronary bypass graft; Z95.3 Presence of xenogenic heart valve
CPT/HCPCS: 36415; 36556; 36569; 36600; 70450; 71045; 71250; 74018; 76705; 76937; 80048; 80053; 80061; 80202; 81001; 82805; 82962; 83036; 83605; 83735; 83880; 84439; 84443; 84480; 84484; 85007; 85014; 85018; 85027; 85610; 85730; 86850; 86900; 86901; 87040; 87070; 87077; 87081; 87086; 87186; 87205; 87426; 87804; 92507; 92610; 93005; 93306; 93458; 93970; 93971; 94002; 94003; 94640; 94660; 96365; 97110; 97163; 97530; 99152; 99291; G0378; J0169; J0461; J1335; J1815; J2185; J2543; J2704; J3480; J3490; Q9967

== ENCOUNTER 2025-08-01 07:25 | Inpatient (IN) | payer MEDICAID ==
[~2025-08-01] VITALS: Ht 165.1 cm; Wt 45.5 kg
[2025-08-01 08:10] VITALS: PULSE 122; RESP 21; O2SAT 97
[2025-08-01 08:34] VITALS: TEMP 97.8
--- NOTE | 2025-08-01 09:10 | DVH ---
CHEST RADIOGRAPH Indication: cp Technique: Single frontal view of the chest was obtained COMPARISON: XY CHEST XRAY 1 VIEW on DOS: 06/01/25, XY CHEST XRAY 1 VIEW on DOS: 05/29/25, XY CHEST PORTABLE on DOS: 05/28/25, XY CHEST XRAY 1 VIEW on DOS: 05/27/25, XY CHEST XRAY 1 VIEW on DOS: 05/26/25 FINDINGS: Heart size is normal. Median sternotomy. Calcifications in the aorta. Lungs are hyperinflated with emphysematous changes. There is a right mid and lower lung opacity, likely combination of pleural effusion and consolidation. No pneumothorax. No acute osseous abnormality IMPRESSION: Right mid and lower lung opacity, likely a combination of consolidation and pleural effusion Emphysema.
[2025-08-01 09:33] LABS: Potassium 4.2 mmol/L (3.5-5.1)
[2025-08-01 09:34] LABS: Anion Gap 8 (5-15)
[2025-08-01 09:35] LABS: Calcium 9.9 mg/dL (8.7-10.4)
[2025-08-01 09:37] LABS: Carbon Dioxide 38 mmol/L (20-31); Chloride 90 mmol/L (98-107); Sodium 136 mmol/L (136-145)
[2025-08-01 09:40] LABS: BUN/Creatinine Ratio 37.5 (10.0-20.0)
[2025-08-01 09:44] LABS: Blood Urea Nitrogen 6 mg/dL (9-23); Glucose 72 mg/dL (74-106)
[2025-08-01] MEDS: AZITHROMYCIN 250 MG TAB PO ONE (09:45)
[2025-08-01] MEDS: methylPREDNISolone SOD SUCC 125 MG/2 ML VL IV ONE (09:45)
[2025-08-01] MEDS: VANCOMYCIN 1GM/250ML KIT 250 ML IV ONE (09:45)
[2025-08-01] MEDS: ALBUTEROL SULF 2.5 MG/0.5ML(0.5%) NEB SOLN ONE (09:49)
--- NOTE | 2025-08-01 09:51 | ED.PDOC ---
History of Present Illness HPI Comments 64-year-old female brought in by ambulance with prior medical history of COPD,and the chief complaint of chest pain. Patient reports on having sharp substernal chest pain radiating down her left arm for 1.5 hours and states on having similar pain past. Patient is having short of breath as well and is currently on 5 L O2 via NC at 95%. Additionally the patient has pain to the buttock area. Denies any other symptoms at this time. Denies chills, fever, N/V/D. No other associated symptoms, modifiers, recent injuries or sick contacts present at this time. Chief Complaint: Chest Pain Time Seen by MD: 09:45 Primary Care Provider: UNKNOWN Reviewed Notes: Nurses Notes, Medications, Allergies Allergies: Coded Allergies: NO KNOWN ALLERGIES (Unverified , 02/17/23) Home Meds Active Scripts Prednisone (Prednisone) 20 Mg Tab, 20 MG PO BID for 6 Days, #6 MG 10 mg twice a day x 3 days 10 mg once a day x 3 days Prov:YULIA WEBB HOSPICE COORDINATOR 09/05/23 Doxycycline (Monohydrate) (Doxycycline) 100 Mg Cap, 100 MG PO BID for 7 Days, #14 CAP Prov:YULIA WEBB NP 09/05/23 Acetaminophen (Tylenol 8 Hour Arthritis) 650 Mg Tab, 650 MG PO TID, #30 TAB Prov:CAMILLE HERNANDEZ 02/17/23 Methocarbamol (Methocarbamol) 750 Mg Tab, 750 MG PO BID, #20 TAB Prov:CAMILLE HERNANDEZ 02/17/23 Reported Medications Aspirin (Aspir-Low) 81 Mg Tab, 81 MG PO DAILY for 30 Days, MG 09/05/24 Atorvastatin Calcium (ATORVASTATIN CALCIUM) 10 Mg Tab, PO 09/05/24 Information Source: Patient Mode of Arrival: EMS Severity: Moderate Timing: Minutes Duration: Since onset, Minutes Prehospital treatment: None Past Medical History PAST MEDICAL HISTORY: COPD Past Medical History (Other): Intubated Surgical History: Unknown PRODUCTION WELDER History: No Pertinent PRODUCTION WELDER History Family History Family History: Reviewed,noncontributory to illness, Unknown Social History Smoker: Non-Smoker Alcohol: Denies ETOH Use Drugs: Denies Drug Use Lives In: Home Constitutional: denies: chills, diaphoresis, fatigue, fever, malaise, sweats, weakness, others EENTM: denies: blurred vision, double vision, ear bleeding, ear discharge, ear drainage, ear pain, ear ringing, eye pain, eye redness, hearing loss, mouth pain, mouth swelling, nasal discharge, nose bleeding, nose congestion, nose pain, photophobia, tearing, throat pain, throat swelling, voice changes, others Respiratory: reports: shortness of breath; denies: cough, hemoptysis, orthopnea, SOB at rest, SOB with excertion, stridor, wheezing, others Cardiovascular: reports: chest pain; denies: dizzy spells, diaphoresis, Dyspnea on exertion, edema, irregular heart beat, left arm pain, lightheadedness, palpitations, PND, syncope, others Gastrointestinal: denies: abdomen distended, abdominal pain, blood streaked bowels, constipated, diarrhea, dysphagia, difficulty swallowing, hematemesis, melena, nausea, poor appetite, poor fluid intake, rectal bleeding, rectal pain, vomiting, others Genitourinary: denies: abnormal vagina bleeding, burning, dyspareunia, dysuria, flank pain, frequency, hematuria, incontinence, pain, , vagina discharge, urgency, others Neurological: denies: dizziness, fainting, headache, left sided numbness, left sided weakness, numbness, paresthesia, pre-existing deficit, right sided numbness, right sided weakness, seizure, speech problems, tingling, tremors, weakness, others Musculoskeletal: denies: back pain, gout, joint pain, joint swelling, muscle pain, muscle stiffness, neck pain, others Integumetry: denies: bruises, change in color, change in hair/nails, dryness, laceration, lesions, lumps, rash, wounds, others Allergic/Immunocompromised: denies: Difficulty Healing, Frequent Infections, Hives, Itching, others Hematologic/Lymphatic: denies: anemia, blood clots, easy bleeding, easy bruising, swollen glands, others Endocrine: denies: excessive hunger, excessive sweating, excessive thirst, excessive urination, flushing, intolerance to cold, intolerance to heat, unexplained weight gain, unexplained weight loss, others Psychiatric: denies: anxiety, bipolar disorder, depression, hopeless, panic disorder, schizophrenia, sleepless, suicidal, others All Other Systems: Reviewed and Negative Physical Exam Exam Comments Tachycardic, tachypneic, cachectic General Appearance: No Apparent Distress, Normal HEENT: Normal ENT Inspection, Pharynx Normal, TMs Normal Neck: Full Range of Motion, Non-Tender, Normal, Normal Inspection Respiratory: Chest Non-Tender, Lungs Clear, No Accessory Muscle Use, No Respiratory Distress, Normal Breath Sounds Cardiovascular: No Edema, No JVD, No Murmur, No Gallop, Normal Peripheral Pulses, Regular Rate/Rhythm Breast Exam: Deferred Gastrointestinal: No Organomegaly, Non Tender, No Pulsatile Mass, Normal Bowel Sounds, Soft Genitalia: Deferred Pelvic: Deferred Rectal: Deferred Extremities: No calf tenderness, Normal capillary refill, Normal inspection, Normal range of motion, Non-tender, No pedal edema Musculoskeletal : Apperance: Normal Neurologic: Alert, storeroom attendant II-XII nml as Tested, No Motor Deficits, Normal Affect, Normal Mood, No Sensory Deficits Cerebellar Function: Normal Reflexes: Normal Skin: Dry, Normal Color, Warm Lymphatic: No Adenopathy Was a procedure done? Was a procedure done?: No Differential Dx Considerations may include: ACS, CVA, viral syndrome, electrolyte abnormality, infectious etiology, pneumonia X-Ray, Labs, Meds, VS Vital Signs Date Time Temp Pulse Resp B/P (MAP) Pulse Ox O2 Delivery O2 Flow Rate FiO2 08/01/25 09:55 22 98 Nasal Cannula* 4 36 08/01/25 09:13 121 08/01/25 08:34 97.8 126 24 126/78 92 97.8 08/01/25 08:10 122 21 97 Nasal Cannula* 5 40 08/01/25 08:10 98.2 122 21 131/77 (95) 97 98.2 Lab Test 08/01/25 09:11 08/01/25 08:33 Range/Units White Blood Count 27.6 H 4.4-10.8 10^3/uL Red Blood Count 4.22 4.0-5.20 10^6/uL Hemoglobin 12.1 L 12.2-16.2 g/dL Hematocrit 37.1 36.0-46.0 % Mean Corpuscular Volume 87.9 80.0-100.0 fL Mean Corpuscular Hemoglobin 28.7 28.0-32.0 pg Mean Corpuscular Hemoglobin Concent 32.6 32.0-36.0 g/dL Red Cell Distribution Width 14.2 11.8-14.3 % Platelet Count 614 H 140-450 10^3/uL Mean Platelet Volume 7.4 6.9-10.8 fL Neutrophils (%) (Auto) 37.0-80.0 % Lymphocytes (%) (Auto) 10.0-50.0 % Monocytes (%) (Auto) 0.0-12.0 % Basophils (%) (Auto) 0.0-2.0 % Neutrophils # (Auto) 1.6-8.6 10 ^3/uL Lymphocytes # (Auto) 0.4-5.4 10 ^3/uL Monocytes # (Auto) 0-1.3 10 ^3/uL Differential Total Cells Counted Pending Neutrophils % (Manual) Pending Band Neutrophils % (Manual) Pending Lymphocytes % (Manual) Pending Monocytes % (Manual) Pending Eosinophils % (Manual) Pending Basophils % (Manual) Pending Metamyelocytes % (manual) Pending Myelocytes % (Manual) Pending Promyelocytes % (Manual) Pending Blast Cells % (Manual) Pending Reactive Lymphocytes Pending Platelet Estimate Pending Troponin I High Sensitivity Pending Pending Sodium Level 136 136-145 mmol/L Potassium Level 4.2 3.5-5.1 mmol/L Chloride Level 90 L 98-107 mmol/L Carbon Dioxide Level 38 H 20-31 mmol/L Anion Gap 8 5-15 Blood Urea Nitrogen 6 L 9-23 mg/dL Creatinine 0.16 L 0.550-1.02 mg/dL Glomerular Filtration Rate Calc 139 >90 mL/min BUN/Creatinine Ratio 37.5 H 10.0-20.0 Serum Glucose 72 L 74-106 mg/dL Calcium Level 9.9 8.7-10.4 mg/dL Current Medications Medications (Trade) Dose Ordered Sig/Atilio Route Start Time Stop Time Status Last Admin Albuterol (Ventolin Medneb) 5 mg ONCE ONCE NEB 08/01/25 09:45 08/01/25 09:46 DC 08/01/25 09:55 Ipratropium [place] (Atrovent Medneb) 0.5 mg ONCE ONCE NEB 08/01/25 09:45 08/01/25 09:46 DC 08/01/25 09:55 Time of 1ST Reevaluation: 10:15 Reevaluation 1ST: Unchanged Patient Education/Counseling: Diagnosis, Treatment, Prognosis Family Education/Counseling: No Family Present SEPSIS Sepsis Screen Date sepsis recognized/suspect: Aug 01, 2025 Time Sepsis recognized/suspect: 0735 Recent Procedure: No On Antibiotic Therapy: No Respiratory Rate >20: Yes Heart Rate >90: Yes Temp<36 C (96.8 F) or >38.3 C: No SBP <90 or MAP <65 mmHG: No New Acute Mental Status Change: No Is the patient on CPAP, BIPAP,: No Physician Orders Complete Blood Count (08/01/25 08:12) Troponin-I Hs (08/01/25 08:12) Urinalysis (08/01/25 08:12) Chest Portable (08/01/25 08:12) Electrocardigram (08/01/25 08:12) Troponin-I Hs (08/01/25 09:12) Troponin-I Hs (08/01/25 11:12) Electrocardigram (08/01/25 09:12) Electrocardigram (08/01/25 11:12) PTPTT (08/01/25 09:43) Lactated Ringer's (08/01/25 09:45) Blood Culture (08/01/25 09:43) Lactic Acid W/ Reflex Order (08/01/25 10:00) Lactic Acid W/ Reflex Order (08/01/25 12:00) Cefepime 1gm/50ml (Maxipime 1gm/50ml) (08/01/25 09:43) Notify Md If Map <65 Or Bp<90 (08/01/25 09:43) If Map<65 Start Vasopressor (08/01/25 09:43) Sepsis Reassesment After Fluid (08/01/25 10:43) Vancomycin 1gm/250ml Kit (08/01/25 09:45) Manual Differential (08/01/25 09:11) Vital Signs Date Time Temp Pulse Resp B/P (MAP) Pulse Ox O2 Delivery O2 Flow Rate FiO2 08/01/25 09:55 22 98 Nasal Cannula* 4 36 08/01/25 09:13 121 08/01/25 08:34 97.8 126 24 126/78 92 97.8 08/01/25 08:10 122 21 97 Nasal Cannula* 5 40 08/01/25 08:10 98.2 122 21 131/77 (95) 97 98.2 Laboratory Tests Test 08/01/25 09:11 White Blood Count 27.6 10^3/uL (4.4-10.8) H Medications Medications Dose Ordered Sig/Atilio Route Start Time Stop Time Status Last Admin Dose Admin Albuterol 5 mg ONCE ONCE NEB 08/01/25 09:45 08/01/25 09:46 DC 08/01/25 09:55 Ipratropium [place] 0.5 mg ONCE ONCE NEB 08/01/25 09:45 08/01/25 09:46 DC 08/01/25 09:55 Departure 1 Departure Time of Disposition: 10:12 (Patient presented with chest pain and shortness of breath. Likely septic from right lower lobe pneumonia. Patient is critically ill we will admit patient for further workup and expert consultation) Impression: Primary Impression: Septic shock Additional Impressions: Right lower lobe pneumonia Acute respiratory failure Disposition: ADMITTED INPATIENT Admit to: [facility] Condition: Guarded Critical Care Note Critical Care Time?: Yes Critical care comment: Septic shock and acute respiratory failure Authorized and Performed by: Celena Sanchez MD Total critical care time: Approximately 121 minutes Due to a high probability of clinically significant, life threatening deterioration, the patient required my highest level of preparedness to intervene emergently and I personally spent this critical care time directly and personally managing the patient. This critical care time included obtaining a history; examining the patient; pulse oximetry; ordering and review of studies; arranging urgent treatment with development of a management plan; evaluation of patient's response to treatment; frequent reassessment; and, discussions with other providers. This critical care time was performed to assess and manage the high probability of imminent, life-threatening deterioration that could result in multi-organ failure. It was exclusive of separately billable procedures and treating other patients and teaching time. Please see my other sections and the rest of the note for further information on patient assessment and treatment. Stability Stability form required: No I personally scribed for CELENA SANCHEZ MD ([email or web address]) on 08/01/25 at 09:51. Electronically submitted by Davion Farah ([email or web address]). CELENA SANCHEZ MD Aug 01, 2025 09:51
[2025-08-01] MEDS: IPRATROPIUM BROM 0.5 MG/2.5ML INH SOL NEB ONE (09:55)
[2025-08-01] MEDS: ALBUTEROL SULF 2.5 MG/0.5ML(0.5%) NEB SOLN NEB ONE (09:55)
[2025-08-01 10:08] LABS: Hematocrit 37.1 % (36.0-46.0); Hemoglobin 12.1 g/dL (12.2-16.2); Mean Corpuscular Hemoglobin 28.7 pg (28.0-32.0); Mean Corpuscular Volume 87.9 fL (80.0-100.0)
[2025-08-01 10:33] LABS: Total Cells Counted 100.0 (100)
[2025-08-01 10:34] LABS: Ovalocytes FEW
[2025-08-01] MEDS: HALOPERIDOL LACTATE 5 MG/ML INJ VIAL IM ONE (10:43)
--- NOTE | 2025-08-01 11:01 | DVHHP2 ---
Admitting Diagnosis: Chest pain History of Present Illness 64-year-old female brought in by ambulance with prior medical history of COPD,and the chief complaint of chest pain. Patient reports on having sharp colón bsternal chest pain radiating down her left arm for 1.5 hours and states on having similar pain past. Patient is having short of breath as well and is currently on 5 L O2 via NC at 95%. Additionally the patient has pain to the buttock area. Denies any other symptoms at this time. Denies chills, fever, N/V/D. No other associated symptoms, modifiers, recent injuries or sick contacts present PAST MEDICAL HISTORY: COPD Past Medical History (Other): Intubated Surgical History: Unknown HUMAN RESOURCES OFFICE MANAGER History: No Pertinent HUMAN RESOURCES OFFICE MANAGER History Family History Family History: Reviewed,noncontributory to illness, Unknown Social History Smoker: Non-Smoker Alcohol: Denies ETOH Use Drugs: Denies Drug Use Lives In: Home Patient Family History: FH: CHF (congestive heart failure) G8 MOTHER FH: aneurysm G8 MOTHER FH: muscular dystrophy G8 FATHER Hypertension G8 MOTHER Allergies: Coded Allergies: NO KNOWN ALLERGIES (Unverified , 02/17/23) Home Meds Active Scripts Prednisone (Prednisone) 20 Mg Tab, 20 MG PO BID for 6 Days, #6 MG 10 mg twice a day x 3 days 10 mg once a day x 3 days Prov:YULIA WEBB CHANNEL MARKETING PROGRAM MANAGER 09/05/23 Doxycycline (Monohydrate) (Doxycycline) 100 Mg Cap, 100 MG PO BID for 7 Days, #14 CAP Prov:YULIA WEBB CHANNEL MARKETING PROGRAM MANAGER 09/05/23 Acetaminophen (Tylenol 8 Hour Arthritis) 650 Mg Tab, 650 MG PO TID, #30 TAB Prov:CAMILLE HERNANDEZ 02/17/23 Methocarbamol (Methocarbamol) 750 Mg Tab, 750 MG PO BID, #20 TAB Prov:CAMILLE HERNANDEZ 02/17/23 Reported Medications Aspirin (Aspir-Low) 81 Mg Tab, 81 MG PO DAILY for 30 Days, MG 09/05/24 Atorvastatin Calcium (ATORVASTATIN CALCIUM) 10 Mg Tab, PO 09/05/24 Current Medications Current Medications Medications (Trade) Dose Ordered Sig/Atilio Route PRN Reason Start Time Stop Time Status Last Admin Cefepime HCl 50 ml @ 12.5 mls/hr ONCE STAT IV 08/01/25 09:43 08/01/25 13:42 Sodium Chloride (Saline Lock Ns) 10 ml Q8HR IV 08/01/25 14:00 Docusate Sodium (Colace Capsule) 100 mg BIDPRN PRN PO FOR CONSTIPATION 08/01/25 11:15 Acetaminophen (Tylenol Tablet) 650 mg Q6HP PRN PO PAIN SCALE 1-3 OR TEMP>100.4 08/01/25 11:15 Acetaminophen/ Hydrocodone Bitart (Leonard 5/325MG Tab) 1 tab Q4HP PRN PO MODERATE PAIN (4-6 PAIN SCALE) 08/01/25 11:15 Hydromorphone HCl (Dilaudid Injection) 0.5 mg Q4HP PRN IV SEVERE PAIN (7-10 PAIN SCALE) 08/01/25 11:15 Ondansetron HCl (Zofran) 4 mg Q4HP PRN IV NAUSEA / VOMITING 08/01/25 11:15 Enoxaparin Sodium (Lovenox) 40 mg DAILY SC 08/02/25 10:00 UNV Nitroglycerin (Ntrostat Sublingual) 0.4 mg Q5MINP PRN SL FOR CHEST PAIN 08/01/25 11:15 Morphine Sulfate 2 mg Q30M PRN IV FOR CHEST PAIN 08/01/25 11:15 Ceftriaxone Sodium 50 ml @ 100 mls/hr DAILY IV 08/02/25 10:00 UNV Azithromycin 250 ml @ 125 mls/hr DAILY IV 08/02/25 10:00 UNV Aspirin (Ecotrin Enteric Coated Tablet) 81 mg DAILY PO 08/02/25 10:00 Patient Own Medication 750 mg BID PO 08/01/25 22:00 UNV Patient Own Medication 20 mg BID PO 08/01/25 22:00 UNV Atorvastatin Calcium (Lipitor) 10 mg HS PO 08/01/25 22:00 Vital Signs Vital Signs Date Time Temp Pulse Resp B/P (MAP) Pulse Ox O2 Delivery O2 Flow Rate FiO2 08/01/25 10:43 157 08/01/25 09:55 22 98 Nasal Cannula* 4 36 08/01/25 08:34 97.8 126/78 97.8 Physical Exam Generally 65 years old woman, well nourished well developed. No apparent distress HEENT-atraumatic normocephalic heart-regular rate and rhythm lungs clear to auscultate Abdomen soft nontender nondistended Musculoskeletal-no edema cyanosis Neuro-AO x3, no focal deficits SEPSIS Sepsis Screen Date sepsis recognized/suspect: Aug 01, 2025 Time Sepsis recognized/suspect: 734 Recent Procedure: No On Antibiotic Therapy: No Respiratory Rate >20: Yes Heart Rate >90: Yes Temp<36 C (96.8 F) or >38.3 C: No SBP <90 or MAP <65 mmHG: No New Acute Mental Status Change: No Is the patient on CPAP, BIPAP,: No Physician Orders Chest Portable (08/01/25 08:12) Electrocardigram (08/01/25 08:12) Troponin-I Hs (08/01/25 11:12) Electrocardigram (08/01/25 09:12) Electrocardigram (08/01/25 11:12) Blood Culture (08/01/25 09:43) Lactic Acid W/ Reflex Order (08/01/25 10:00) Cefepime 1gm/50ml (Maxipime 1gm/50ml) (08/01/25 09:43) Notify Md If Map <65 Or Bp<90 (08/01/25 09:43) If Map<65 Start Vasopressor (08/01/25 09:43) Sepsis Reassesment After Fluid (08/01/25 10:43) Admit (08/01/25 11:01) Code Status (08/01/25 11:01) Vital Signs .PER UNIT PROTOCOL (08/01/25 11:01) Review Orders With Adm.Md (08/01/25 11:01) Encourage Activity As Tolerate (08/01/25 11:01) Regular Diet (08/01/25 Lunch) Sodium Chloride Lock (Saline Lock Ns) (08/01/25 14:00) Docusate Sodium Capsule (Colace Capsule) (08/01/25 11:15) Acetaminophen Tablet (Tylenol Tablet) (08/01/25 11:15) Notify Md Of Changes From Base (08/01/25 11:01) Advance Directive (08/01/25 11:01) Patient Condition (08/01/25 11:01) Allergies (08/01/25 11:01) Hydrocodone-Acet 5/325mg Tab (Leonard 5/32 (08/01/25 11:15) Hydromorphone Injection (Dilaudid Inject (08/01/25 11:15) Ondansetron Hcl (Zofran) (08/01/25 11:15) Enoxaparin Sodium (Lovenox) (08/02/25 10:00) Nitroglycerin Sublingual (Ntrostat Subli (08/01/25 11:15) Morphine Sulfate Injection (08/01/25 11:15) Stat Ekg For Chest Pain (08/01/25 11:01) Notify Md Of Changes From Base (08/01/25 11:01) Publications Designer For 24 Hours (08/01/25 11:01) Emergency Dysrhythmia Protocol (08/01/25 11:) Rhythm Strips Once Every Shift (08/01/25 11:01) Oxygen By Nasal Cannula (08/01/25 11:01) Ceftriaxone 1gm/50ml (Rocephin) (08/02/25 10:00) Azithromycin 500mg/ 250ml (Zithromax 50 (08/02/25 10:00) Respiratory Culture W/ Gs (08/01/25 11:01) Aspirin Enteric Coated Tablet (Ecotrin E (08/02/25 10:00) (Nf) Methocarbamol (08/01/25 22:00) (Nf) Prednisone (08/01/25 22:00) Echo 2d Mode Cardiac Dop (08/01/25 11:01) Comprehensive Metabolic Panel (08/02/25 05:00) Comprehensive Metabolic Panel (08/03/25 05:00) Comprehensive Metabolic Panel (08/04/25 05:00) Comprehensive Metabolic Panel (08/05/25 05:00) Comprehensive Metabolic Panel (08/06/25 05:00) Complete Blood Count (08/02/25 05:00) Complete Blood Count (08/03/25 05:00) Complete Blood Count (08/04/25 05:00) Complete Blood Count (08/05/25 05:00) Complete Blood Count (08/06/25 05:00) Troponin-I Hs (08/01/25 11:13) Atorvastatin (Lipitor) (08/01/25 22:00) Albuterol Medneb (Ventolin Medneb) (08/01/25 18:00) Ipratropium Medneb (Atrovent Medneb) (08/01/25 18:00) Methylprednisolone Sod Succ (Solu Medrol (08/01/25 14:00) Urine Bacterial Culture (08/01/25 12:19) Vital Signs Date Time Temp Pulse Resp B/P (MAP) Pulse Ox O2 Delivery O2 Flow Rate FiO2 08/01/25 10:43 157 08/01/25 09:55 22 98 Nasal Cannula* 4 36 08/01/25 09:13 121 08/01/25 08:34 97.8 126 24 126/78 92 97.8 08/01/25 08:10 122 21 97 Nasal Cannula* 5 40 08/01/25 08:10 98.2 122 21 131/77 (95) 97 98.2 Laboratory Tests Test 08/01/25 09:11 08/01/25 11:30 White Blood Count 27.6 10^3/uL (4.4-10.8) H Lactic Acid Level Pending Medications Medications Dose Ordered Sig/Atilio Route Start Time Stop Time Status Last Admin Dose Admin Albuterol 5 mg ONCE ONCE NEB 08/01/25 09:45 08/01/25 09:46 DC 08/01/25 09:55 Haloperidol Lactate 10 mg ONCE ONCE IM 08/01/25 10:45 08/01/25 10:46 DC 08/01/25 10:43 Ipratropium Ennis 0.5 mg ONCE ONCE NEB 08/01/25 09:45 08/01/25 09:46 DC 08/01/25 09:55 Results Labs Test 08/01/25 11:36 08/01/25 11:30 08/01/25 09:11 08/01/25 08:33 Range/Units Urine Color Yellow Yellow Urine Clarity Cloudy H Clear Urine pH 7.5 5.0-9.0 Urine Specific [place] 1.011 1.001-1.035 Urine Protein Negative Negative Urine Ketones 1+ H Negative Urine Blood Negative Negative /uL Urine Nitrite Negative Negative Urine Bilirubin Negative Negative Urine Urobilinogen Normal Negative mg/dL Urine Leukocyte Esterase 3+ Negative /uL Urine RBC 3 0 - 4 /hpf Urine Microscopic WBC 37 H 0-5 /HPF Urine Squamous Epithelial Cells None seen <5 /hpf Urine Bacteria Many H None Seen /hpf Urine Glucose Normal Normal mg/dL White Blood Count 27.6 H 4.4-10.8 10^3/uL Red Blood Count 4.22 4.0-5.20 10^6/uL Hemoglobin 12.1 L 12.2-16.2 g/dL Hematocrit 37.1 36.0-46.0 % Mean Corpuscular Volume 87.9 80.0-100.0 fL Mean Corpuscular Hemoglobin 28.7 28.0-32.0 pg Mean Corpuscular Hemoglobin Concent 32.6 32.0-36.0 g/dL Red Cell Distribution Width 14.2 11.8-14.3 % Platelet Count 614 H 140-450 10^3/uL Mean Platelet Volume 7.4 6.9-10.8 fL Neutrophils (%) (Auto) 37.0-80.0 % Lymphocytes (%) (Auto) 10.0-50.0 % Monocytes (%) (Auto) 0.0-12.0 % Basophils (%) (Auto) 0.0-2.0 % Neutrophils # (Auto) 1.6-8.6 10 ^3/uL Lymphocytes # (Auto) 0.4-5.4 10 ^3/uL Monocytes # (Auto) 0-1.3 10 ^3/uL Differential Total Cells Counted 100.0 100 Neutrophils % (Manual) 68 37.0-80.0 Band Neutrophils % (Manual) 5 Lymphocytes % (Manual) 6 L 10.0-50.0 Monocytes % (Manual) 16 H 0-12 Eosinophils % (Manual) 2 0-7 Basophils % (Manual) 0 0.0-2.0 Metamyelocytes % (manual) 0 Myelocytes % (Manual) 3 Promyelocytes % (Manual) 0 Blast Cells % (Manual) 0 Reactive Lymphocytes 0 Platelet Estimate Increased Ovalocytes Few Prothrombin Time 11.4 9.3-11.8 sec Prothrombin Time INR 1.08 0.9-1.15 Activated Partial Thromboplast Time 31.4 24.5-34.5 SEC Sodium Level 136 136-145 mmol/L Potassium Level 4.2 3.5-5.1 mmol/L Chloride Level 90 L 98-107 mmol/L Carbon Dioxide Level 38 H 20-31 mmol/L Anion Gap 8 5-15 Blood Urea Nitrogen 6 L 9-23 mg/dL Creatinine 0.16 L 0.550-1.02 mg/dL Glomerular Filtration Rate Calc 139 >90 mL/min BUN/Creatinine Ratio 37.5 H 10.0-20.0 Serum Glucose 72 L 74-106 mg/dL Calcium Level 9.9 8.7-10.4 mg/dL Primary Diagnosis Chest pain rule out ACS Right lower lobe pneumonia COPD acute exacerbation Plan Elevated WBC Troponin negative Check troponin x3 Check EKG Start ceftriaxone 1 g q.day, azithromycin 500 mg q.day for right lobe pneumonia Duo nebs q.6 hour while awake Solu-Medrol 60 mg q.8 hours Check sputum culture Check blood culture Check echo of the heart to rule out ACS IV fluids Pain control Resume home meds Antiemetic Full code Lovenox for DVT prophylaxis No GI prophylaxis needed Plan discussed with: Patient Problems List: (1) Acute respiratory failure Status: Acute (2) Right lower lobe pneumonia Status: Acute (3) COPD with acute exacerbation Date of Service: Aug 01, 2025 Billing Provider: MARC MCCOY MD Common Visit Codes: [id number] INP/OBS CARE (HIGH) MARC MCCOY MD Aug 01, 2025 11:01
[2025-08-01] MEDS ORDERED: MORPHINE SULFATE INJ 2 MG/ml SYRG IV PRN (11:15)
[2025-08-01] MEDS ORDERED: HYDROmorphone HCL 2 MG/ML VL/or syr IV PRN (11:15)
[2025-08-01] MEDS ORDERED: ACETAMINOPHEN 325 MG TAB PO PRN (11:15)
[2025-08-01] MEDS ORDERED: ONDANSETRON HCL 4 MG/2 ML VIAL IV PRN (11:15)
[2025-08-01] MEDS ORDERED: NITROGLYCERIN 0.4 MG SL TAB SL PRN (11:15)
[2025-08-01] MEDS ORDERED: HYDROcodone-ACET 5/325MG TAB PO PRN (11:15)
[2025-08-01] MEDS ORDERED: DOCUSATE SOD 100 MG CAP PO PRN (11:15)
[2025-08-01 11:17] LABS: INR 1.08 (0.9-1.15); Partial Thromboplastin Time 31.4 SEC (24.5-34.5); Prothrombin Time 11.4 sec (9.3-11.8)
[2025-08-01 12:10] LABS: Urine Protein, UAD Negative (Negative)
[2025-08-01] MEDS: MIDAZOLAM HCL 5 MG/ML-1ML VIAL IM ONE (12:15)
[2025-08-01 13:03] VITALS: BP 131/77; PULSE 123; RESP 18; O2SAT 98
[2025-08-01] MEDS ORDERED: methylPREDNISolone SOD SUCC 125 MG/2 ML VL IV SCH (14:00)
[2025-08-01] MEDS: SODIUM CHLOR 0.9% PF (SALINE LOCK) 10ML VIAL/SYR IV SCH (14:00)
[2025-08-01] MEDS: CEFEPIME 1GM/50ML 50 ML IV STA (14:54)
[2025-08-01] MEDS: LACTATED RINGER'S 1,700 ML IV ONE (14:54)
[2025-08-01 15:00] VITALS: BP 118/74; PULSE 122; RESP 24; O2SAT 98
[2025-08-01] MEDS ORDERED: IPRATROPIUM BROM 0.5 MG/2.5ML INH SOL NEB SCH (18:00)
[2025-08-01] MEDS ORDERED: ALBUTEROL SULF 2.5 MG/0.5ML(0.5%) NEB SOLN NEB SCH (18:00)
--- NOTE | 2025-08-01 18:42 | ECG ---
[facility] Test Date: 2025-08-01 Test Time: 09:13:57 Pat Name: JODY LUCERO Department: ED Room: [address] [place] [address] Gender: F Drupal Php Developer: dante : 1960 Requested By: CELENA SANCHEZ Order Number: [id number] Reading MD: Randy Hawthorne Measurements Intervals [place] Rate: 121 P: 95 UT: 164 QRS: 89 QRSD: 69 T: 45 QT: 287 QTc: 408 Interpretive Statements Sinus tachycardia Atrial premature complex Consider right atrial enlargement Borderline right axis deviation Borderline T wave abnormalities Electronically Signed On 08-04-2025 17:50:09 PST by Randy Hawthorne Please click the below link to view image of tracing.
--- NOTE | 2025-08-01 18:42 | ECG ---
[facility] Test Date: 2025-08-01 Test Time: 10:43:19 Pat Name: JODY LUCERO Department: ED Room: [address] [place] [address] A Gender: F Piggery Worker: dante : 1960 Requested By: CELENA SANCHEZ Order Number: [id number] Reading MD: Randy Hawthorne Measurements Intervals [place] Rate: 157 P: 0 NC: 0 QRS: 38 QRSD: 152 T: 50 QT: 285 QTc: 461 Interpretive Statements Sinus tachycardia Ventricular tachycardia, unsustained Nonspecific intraventricular conduction delay Artifact in lead(s) II,aVR,aVF,V1,V2,V3,V4,V5,V6 Electronically Signed On 08-04-2025 17:50:22 PST by Randy Hawthorne Please click the below link to view image of tracing.
[2025-08-01] MEDS ORDERED: ATORVASTATIN 20 MG TAB PO SCH (22:00)
[2025-08-01] MEDS ORDERED: predniSONE 20 MG TAB PO SCH (22:00)
[2025-08-01] MEDS ORDERED: METHOCARBAMOL 500 MG TAB PO PRN (22:00)
[2025-08-02] MEDS ORDERED: AZITHROMYCIN 500MG/ 250ML 250 ML IV SCH (10:00)
[2025-08-02] MEDS ORDERED: ASPirin-EC 81 mg tab PO SCH (10:00)
[2025-08-02] MEDS ORDERED: ENOXAPARIN SOD 40 MG/0.4 ML SYRINGE SC SCH (10:00)
== END 2025-08-01 13:56 | disposition left against medical advice (07) | DRG 140 ==
LOC: EDBD 07:25 → ER 07:25 → OVERFLOW 11:01
PROVIDERS: ADMIT Internal Medicine; ATTEND Internal Medicine
DX: J44.0 Chronic obstructive pulmonary disease with (acute) lower respiratory infection (principal); J96.00 Acute respiratory failure, unspecified whether with hypoxia or hypercapnia; I24.9 Acute ischemic heart disease, unspecified; J18.9 Pneumonia, unspecified organism; J44.1 Chronic obstructive pulmonary disease with (acute) exacerbation; Z53.29 Procedure and treatment not carried out because of patient's decision for other reasons; Z82.49 Family history of ischemic heart disease and other diseases of the circulatory system
CPT/HCPCS: 36415; 71045; 80048; 81001; 83605; 84484; 85007; 85027; 85610; 85730; 87040; 87086; 93005; 94640; 96372; 99291; 99292; G0378

== ENCOUNTER 2025-08-19 08:32 | Inpatient (IN) | payer MEDICAID ==
[~2025-08-19] VITALS: Ht 157.5 cm; Wt 40.6 kg
--- NOTE | 2025-08-19 09:00 | ED.PDOC ---
Altered Mental Status HPI Comments This is a 64 year old female BIBA presenting to the ED with chief complaint of ALOC. EMS reports patient is being sent from home by son due to being increasingly more altered over the past 12 hours. EMS relays patient was in a custodial for the past 2 weeks and was discharged to her son's home a few days ago, being sent with a Anaya catheter in place. Patient states that she feels increasingly weak. Patient denies any chest pain, SOB, dizziness, N/V, fever, or chills. Patient has a DNR in place. Chief Complaint: Urinary Time Seen by MD: 08:58 Primary Care Provider: UNKNOWN Reviewed Notes: Nurses Notes, Transport Rn Notes, Medications, Allergies Allergies: Coded Allergies: NO KNOWN ALLERGIES (Unverified , 02/17/23) Home Meds Active Scripts Prednisone (Prednisone) 20 Mg Tab, 20 MG PO BID for 6 Days, #6 MG 10 mg twice a day x 3 days 10 mg once a day x 3 days Prov:YULIA WEBB CAGE OPERATOR 09/05/23 Doxycycline (Monohydrate) (Doxycycline) 100 Mg Cap, 100 MG PO BID for 7 Days, #14 CAP Prov:YULIA WEBB NP 09/05/23 Acetaminophen (Tylenol 8 Hour Arthritis) 650 Mg Tab, 650 MG PO TID, #30 TAB Prov:CAMILLE HERNANDEZ 02/17/23 Methocarbamol (Methocarbamol) 750 Mg Tab, 750 MG PO BID, #20 TAB Prov:CAMILLE HERNANDEZ 02/17/23 Reported Medications Aspirin (Aspir-Low) 81 Mg Tab, 81 MG PO DAILY for 30 Days, MG 09/05/24 Atorvastatin Calcium (ATORVASTATIN CALCIUM) 10 Mg Tab, PO 09/05/24 Information Source: Patient, Emergency Med Personnel Mode of Arrival: EMS Severity: Moderate Timing: Hours Duration: Since onset Prehospital treatment: None Quality: Decreased Alertness Recent: Urinary Symptoms Past Medical History PAST MEDICAL HISTORY: Cancer, COPD Surgical History: Unknown LACING PRESSER History: No Pertinent LACING PRESSER History Family History Family History: Reviewed,noncontributory to illness, Unknown Social History Smoker: Non-Smoker Alcohol: Denies ETOH Use Drugs: Denies Drug Use Lives In: Home Constitutional: denies: chills, diaphoresis, fatigue, fever, malaise, sweats, weakness, others EENTM: denies: blurred vision, double vision, ear bleeding, ear discharge, ear drainage, ear pain, ear ringing, eye pain, eye redness, hearing loss, mouth pain, mouth swelling, nasal discharge, nose bleeding, nose congestion, nose pain, photophobia, tearing, throat pain, throat swelling, voice changes, others Respiratory: denies: cough, hemoptysis, orthopnea, SOB at rest, shortness of breath, SOB with excertion, stridor, wheezing, others Cardiovascular: denies: chest pain, dizzy spells, diaphoresis, Dyspnea on exertion, edema, irregular heart beat, left arm pain, lightheadedness, palpitations, PND, syncope, others Gastrointestinal: denies: abdomen distended, abdominal pain, blood streaked bowels, constipated, diarrhea, dysphagia, difficulty swallowing, hematemesis, melena, nausea, poor appetite, poor fluid intake, rectal bleeding, rectal pain, vomiting, others Genitourinary: denies: abnormal vagina bleeding, burning, dyspareunia, dysuria, flank pain, frequency, hematuria, incontinence, pain, , vagina discharge, urgency, others Neurological: denies: dizziness, fainting, headache, left sided numbness, left sided weakness, numbness, paresthesia, pre-existing deficit, right sided numbness, right sided weakness, seizure, speech problems, tingling, tremors, weakness, others Musculoskeletal: denies: back pain, gout, joint pain, joint swelling, muscle pain, muscle stiffness, neck pain, others Integumetry: denies: bruises, change in color, change in hair/nails, dryness, laceration, lesions, lumps, rash, wounds, others Allergic/Immunocompromised: denies: Difficulty Healing, Frequent Infections, Hives, Itching, others Hematologic/Lymphatic: denies: anemia, blood clots, easy bleeding, easy bruising, swollen glands, others Endocrine: denies: excessive hunger, excessive sweating, excessive thirst, excessive urination, flushing, intolerance to cold, intolerance to heat, unexplained weight gain, unexplained weight loss, others Psychiatric: denies: anxiety, bipolar disorder, depression, hopeless, panic disorder, schizophrenia, sleepless, suicidal, others Unable to Obtain due to: Altered Mental Status All Other Systems: Reviewed and Negative Physical Exam General Appearance: Moderate Distress, Normal HEENT: Normal ENT Inspection, Pharynx Normal, TMs Normal Neck: Full Range of Motion, Non-Tender, Normal, Normal Inspection Respiratory: Chest Non-Tender, Lungs Clear, No Accessory Muscle Use, No Respiratory Distress, Normal Breath Sounds Cardiovascular: No Edema, No JVD, No Murmur, No Gallop, Normal Peripheral Pulses, Regular Rate/Rhythm Breast Exam: Deferred Gastrointestinal: No Organomegaly, Non Tender, No Pulsatile Mass, Normal Bowel Sounds, Soft Genitalia: Deferred Pelvic: Deferred Rectal: Deferred Extremities: No calf tenderness, Normal capillary refill Musculoskeletal : Apperance: Normal Neurologic: Alert, advertising dispatch clerks supervisor II-XII nml as Tested, No Motor Deficits, Normal Affect, Normal Mood, No Sensory Deficits Cerebellar Function: NOT DONE Reflexes: NOT DONE Skin: Dry, Normal Color, Warm Peripheral Pulses: 3+ Radial (R), 3+ Radial (L) Lymphatic: No Adenopathy Was a procedure done? Was a procedure done?: Yes Sedation Sedation?: No Central Line Recorder of insertion practice: Golf Ball Molder Occupation of loan reviewer: Attending Physician Indication: Hypotension, CVP monitoring Room prepared for procedure: Yes Golf Ball Molder performed hand hygien: Yes Maximal sterile barrier precau: Mask/Eye shield, Sterile gown Skin Preparation: Chlorhexidine gluconate, Providine iodine Skin preparation completely dr: Yes Insertion site: Right, Internal jugular Central line catheter type: [id number] dialysis Number of lumens: 3 Antiseptic ointment applied to: Yes Post Assessment: Chest X-Ray Differential Diagnosis (ALOC) Differential Diagnosis: Dehydration, Hypoglycemia, Encephalopathy, Other (UTI) X-Ray, Labs, Meds, VS Vital Signs Date Time Temp Pulse Resp B/P (MAP) Pulse Ox O2 Delivery O2 Flow Rate FiO2 08/19/25 09:26 98.6 121 23 123/83 (96) 95 98.6 08/19/25 09:26 121 23 95 Nasal Cannula* 6 44 08/19/25 08:43 121 18 117/81 94 Lab Test 08/19/25 10:18 08/19/25 10:00 08/19/25 09:30 Range/Units Troponin I High Sensitivity 17 19 </=34 ng/L Urine Color Colorless Yellow Urine Clarity Turbid H Clear Urine pH 7.0 5.0-9.0 Urine Specific [place] 1.008 1.001-1.035 Urine Protein Negative Negative Urine Ketones 1+ H Negative Urine Blood Trace H Negative /uL Urine Nitrite Negative Negative Urine Bilirubin Negative Negative Urine Urobilinogen Normal Negative mg/dL Urine Leukocyte Esterase 2+ Negative /uL Urine RBC 9 0 - 4 /hpf Urine Microscopic WBC 32 H 0-5 /HPF Urine Squamous Epithelial Cells None seen <5 /hpf Urine Bacteria Few H None Seen /hpf Urine Mucus Few None Seen Urine Glucose Normal Normal mg/dL White Blood Count 27.5 H 4.4-10.8 10^3/uL Red Blood Count 4.18 4.0-5.20 10^6/uL Hemoglobin 11.8 L 12.2-16.2 g/dL Hematocrit 36.1 36.0-46.0 % Mean Corpuscular Volume 86.4 80.0-100.0 fL Mean Corpuscular Hemoglobin 28.2 28.0-32.0 pg Mean Corpuscular Hemoglobin Concent 32.6 32.0-36.0 g/dL Red Cell Distribution Width 14.5 H 11.8-14.3 % Platelet Count 485 H 140-450 10^3/uL Mean Platelet Volume 7.5 6.9-10.8 fL Neutrophils (%) (Auto) 37.0-80.0 % Lymphocytes (%) (Auto) 10.0-50.0 % Monocytes (%) (Auto) 0.0-12.0 % Basophils (%) (Auto) 0.0-2.0 % Neutrophils # (Auto) 1.6-8.6 10 ^3/uL Lymphocytes # (Auto) 0.4-5.4 10 ^3/uL Monocytes # (Auto) 0-1.3 10 ^3/uL Differential Total Cells Counted 100.0 100 Neutrophils % (Manual) 76 37.0-80.0 Band Neutrophils % (Manual) 5 Lymphocytes % (Manual) 3 L 10.0-50.0 Monocytes % (Manual) 11 0-12 Eosinophils % (Manual) 0 0-7 Basophils % (Manual) 0 0.0-2.0 Metamyelocytes % (manual) 0 Myelocytes % (Manual) 0 Promyelocytes % (Manual) 0 Blast Cells % (Manual) 0 Reactive Lymphocytes 5 Platelet Estimate Increased Poikilocytosis (manual) Slight Stomatocytes Many Sodium Level 138 136-145 mmol/L Potassium Level 3.6 3.5-5.1 mmol/L Chloride Level 87 L 98-107 mmol/L Carbon Dioxide Level > 40 *H 20-31 mmol/L Anion Gap 10.72406 5-15 Blood Urea Nitrogen 6 L 9-23 mg/dL Creatinine < 0.15 L 0.550-1.02 mg/dL Glomerular Filtration Rate Calc 142 >90 mL/min BUN/Creatinine Ratio 40.0 H 10.0-20.0 Serum Glucose 90 74-106 mg/dL Lactic Acid Level 0.7 0.4-2.0 mmol/L Calcium Level 9.7 8.7-10.4 mg/dL Total Bilirubin 0.6 0.2-1.0 mg/dL Aspartate Amino Transferase (AST) 17 13-40 U/L Alanine Aminotransferase (ALT) < 9 7-40 U/L Alkaline Phosphatase 97 46-116 U/L Total Protein 5.3 L 5.7-8.2 g/dL Albumin 3.0 L 3.2-4.8 g/dL Current Medications Medications (Trade) Dose Ordered Sig/Atilio Route Start Time Stop Time Status Last Admin Sodium Chloride 1,000 ml @ 1,000 mls/hr Q1H ONCE IV 08/19/25 09:00 08/19/25 09:59 DC 08/19/25 13:05 Ceftriaxone Sodium 50 ml @ 100 mls/hr ONCE ONCE IV 08/19/25 09:00 08/19/25 09:29 DC 08/19/25 13:05 Patient alert. Possible sepsis. Reviewed her previous visit. WBC elevated. Urinalysis shows use UTI. Sepsis protocol. Central line placed. Was given Zosyn. Was given azithromycin. Explained to the patient. Continue monitoring. Time of 1ST Reevaluation: 09:57 Reevaluation 1ST: Unchanged Patient Education/Counseling: Diagnosis, Treatment Family Education/Counseling: No Family Present SEPSIS Sepsis Screen Date sepsis recognized/suspect: Aug 19, 2025 Time Sepsis recognized/suspect: 847 Recent Procedure: No On Antibiotic Therapy: Yes Respiratory Rate >20: No Heart Rate >90: No Temp<36 C (96.8 F) or >38.3 C: No SBP <90 or MAP <65 mmHG: No New Acute Mental Status Change: No Is the patient on CPAP, BIPAP,: No Physician Orders Chest Portable (08/19/25 09:00) Sodium Chloride 0.9% (08/19/25 09:00) Troponin-I Hs (08/19/25 12:00) Blood Culture (08/19/25 09:00) Urine Bacterial Culture (08/19/25 09:00) Ok To Change Anaya (08/19/25 10:06) Anaya Catheters (08/19/25 ) Chest Portable (08/19/25 12:14) Azithromycin 500mg/250ml (Zithromax 500m (08/20/25 10:00) Aspirin Chewable Tablet (08/20/25 10:00) Atorvastatin (Lipitor) (08/19/25 22:00) Piperacillin-Tazob 3.375gm (Zosyn 3.375g (08/19/25 14:00) Allergies (08/19/25 12:04) Code Status (08/19/25 12:04) Sodium Chloride 0.9% (08/19/25 14:15) Oxygen Per Hour (08/19/25 12:04) Hydrocodone-Acet 5/325mg Tab ([place] 5/32 (08/19/25 12:15) Ondansetron Hcl (Zofran) (08/19/25 12:15) Docusate Sodium Capsule (Colace Capsule) (08/19/25 12:15) Complete Blood Count (08/20/25 04:00) Comprehensive Metabolic Panel (08/20/25 04:00) Cardiac Diet-2gna,Lofat,Lochol (08/19/25 Lunch) Condition: Serious (08/19/25 12:04) Acetaminophen Tablet (Tylenol Tablet) (08/19/25 12:15) Bedrest With Bathroom Privileg (08/19/25 12:04) Sequential Compression Device (08/19/25 ) Vital Signs Date Time Temp Pulse Resp B/P (MAP) Pulse Ox O2 Delivery O2 Flow Rate FiO2 08/19/25 09:26 98.6 121 23 123/83 (96) 95 98.6 08/19/25 09:26 121 23 95 Nasal Cannula* 6 44 08/19/25 08:43 121 18 117/81 94 Laboratory Tests Test 08/19/25 09:30 Lactic Acid Level 0.7 mmol/L (0.4-2.0) White Blood Count 27.5 10^3/uL (4.4-10.8) H Medications Medications Dose Ordered Sig/Atilio Route Start Time Stop Time Status Last Admin Dose Admin Ceftriaxone Sodium 50 ml @ 100 mls/hr ONCE ONCE IV 08/19/25 09:00 08/19/25 09:29 DC 08/19/25 13:05 Sodium Chloride 1,000 ml @ 1,000 mls/hr Q1H ONCE IV 08/19/25 09:00 08/19/25 09:59 DC 08/19/25 13:05 Departure 1 Departure Time of Disposition: 10:57 Impression: Primary Impression: Sepsis, unspecified organism Qualified Codes: A41.9 - Sepsis, unspecified organism Additional Impression: Sepsis due to urinary tract infection Disposition: ADMITTED INPATIENT Admit to: Med Surg Condition: Guarded Critical Care Note Critical Care Time?: Yes (90 min-critical care time only) Stability Stability form required: No Heart Score Heart Score: Heart Score Response (Comments) Value History N/A 0 EKG N/A 0 Age N/A 0 Risk Factors N/A 0 Troponin N/A 0 Total 0 I personally scribed for TOSHIA ESTRADA MD ([email or web address]) on 08/19/25 at 09:00. Electronically submitted by Norm Sifuentes ([email or web address]). I personally scribed for TOSHIA ESTRADA MD ([email or web address]) on 08/19/25 at 09:01. Electronically submitted by Norm Sifuentes ([email or web address]). TOSHIA ESTRADA MD Aug 19, 2025 09:00
[2025-08-19 09:26] VITALS: PULSE 121; RESP 23; O2SAT 95
--- NOTE | 2025-08-19 09:55 | DVH ---
INDICATION: sob TECHNIQUE: Single frontal view of the chest was obtained COMPARISON: XY CHEST PORTABLE on DOS: 08/01/25, XY CHEST XRAY 1 VIEW on DOS: 06/01/25, XY CHEST XRAY 1 VIEW on DOS: 05/29/25, XY CHEST PORTABLE on DOS: 05/28/25, XY CHEST XRAY 1 VIEW on DOS: 05/27/25 FINDINGS: Heart size is normal. Median sternotomy. Calcifications in the aorta. Lungs are hyperinflated with emphysematous changes. There is a right mid and lower lung opacity, likely combination of pleural effusion and consolidation. No pneumothorax. No acute osseous abnormality IMPRESSION: Right mid and lower lung opacity, likely a combination of consolidation and pleural effusion Emphysema.
[2025-08-19 10:01] LABS: Hemoglobin 11.8 g/dL (12.2-16.2)
[2025-08-19 10:03] LABS: Hematocrit 36.1 % (36.0-46.0); Mean Corpuscular Hemoglobin 28.2 pg (28.0-32.0); Mean Corpuscular Volume 86.4 fL (80.0-100.0)
[2025-08-19 10:20] LABS: Alkaline Phosphatase 97 U/L (46-116); BUN/Creatinine Ratio 40.0 (10.0-20.0); Calcium 9.7 mg/dL (8.7-10.4); Glucose 90 mg/dL (74-106); Potassium 3.6 mmol/L (3.5-5.1); Sodium 138 mmol/L (136-145)
[2025-08-19 10:21] LABS: Bilirubin, Total 0.6 mg/dL (0.2-1.0)
[2025-08-19 10:22] LABS: Alanine Aminotransferase < 9 U/L (7-40); Anion Gap 10.99999 (5-15); Blood Urea Nitrogen 6 mg/dL (9-23); Chloride 87 mmol/L (98-107); Total Protein 5.3 g/dL (5.7-8.2)
[2025-08-19 10:23] LABS: Urine Protein, UAD Negative (Negative)
[2025-08-19 10:23] LABS: Carbon Dioxide > 40 mmol/L (20-31)
[2025-08-19 10:24] LABS: Albumin 3.0 g/dL (3.2-4.8)
[2025-08-19 10:39] LABS: Total Cells Counted 100.0 (100)
[2025-08-19 10:40] LABS: Stomatocytes Many
[2025-08-19] MEDS ORDERED: ONDANSETRON HCL 4 MG/2 ML VIAL IV PRN (12:15)
[2025-08-19] MEDS ORDERED: NITROGLYCERIN 0.4 MG SL TAB SL PRN (12:45)
[2025-08-19] MEDS ORDERED: MORPHINE SULFATE INJ 2 MG/ml SYRG IV PRN (12:45)
--- NOTE | 2025-08-19 12:51 | DVH ---
CHEST RADIOGRAPH Indication: post central line insertion Technique: Single frontal view of the chest was obtained COMPARISON: XY CHEST PORTABLE on DOS: 08/19/25, XY CHEST PORTABLE on DOS: 08/01/25, XY CHEST XRAY 1 VIEW on DOS: 06/01/25, XY CHEST XRAY 1 VIEW on DOS: 05/29/25, XY CHEST PORTABLE on DOS: 05/28/25 FINDINGS: Lines and Tubes: Right central venous catheter in satisfactory position overlying the superior vena cava. Lungs: Right lower lobe airspace disease. Pleura: Small right pleural effusion. No pneumothorax. Cardiomediastinal contours: Median sternotomy. Unremarkable Bones: Unremarkable IMPRESSION: Right central venous catheter in satisfactory position.
--- NOTE | 2025-08-19 12:55 | DVHHP2 ---
History of Present Illness Reason for Visit: Sepsis, unspecified organism History of Present Illness The patient is a 64-year-old female DNR with past medical history of cancer and COPD who presented to [facility] ED for evaluation of altered level of consciousness. Patient was sent from home by son due to increased altered mental status than usual baseline for the past 12 hours. As reported by EMS, patient was in [place] [facility] for the past 2 weeks and was discharged to her son's home few days ago with Anaya catheter in place. Patient was seen and evaluated in the ED with weakness, sacral decubitus ulcer, laboratory data shows WBC 27.5, hemoglobin 11.8, hematocrit 36.1, platelets 485, sodium 138, potassium 3.6, BUN 6, creatinine 0.15, GFR 142, glucose 90, calcium 9.7, protein 5.3, albumin 3.0, troponin 17, lactic acid 0.7, blood pressure 123/83, heart rate 121 trending down to 98, temperature 98.6 F, O2 saturation 96% on oxygen. Chest x-ray revealing right and lower lung opacity, likely a combination of consolidation and pleural effusion, emphysema. Patient was started on IV antibiotic regimen Zosyn, please see medication orders section in the computer. On my assessment, patient denied chest pain, no headache, dizziness, diaphoresis, currently on oxygen, no diarrhea, nausea, vomiting, fever, no chills. Patient was admitted for further evaluation and medical management. Past Medical History Cancer, COPD Past Surgical History Unknown Family History Reviewed, noncontributory to the management of this case. Past Social History The patient lives at home, denies smoking, alcohol or illicit drugs abuse. Review of Systems Constitutional: Yes: Weakness; No: Fever, Chills, Sweats, Malaise, Other Eyes: No: Pain, Vision change, Conjunctivae inflammation, Eyelid inflammation, Other, Redness ENT: No: Ear pain, Ear discharge, Nose pain, Nose discharge, Nose congestion, Mouth pain, Mouth swelling, Throat pain, Throat swelling, Other Respiratory: No: Cough, Dry, Shortness of breath, SOB with excertion, Wheezing, Hemoptysis, Pleuritic Pain, Sputum, Wheezing, Other Cardiovascular: No: Chest Pain, Palpitations, Orthopnea, Paroxysmal Noc. Dyspnea, Edema, Lt Headedness, Other Gastrointestinal: No: Nausea, Vomiting, Abdominal Pain, Diarrhea, Constipation, Melena, Hematochezia, Other Genitourinary: No Dysuria, No Frequency, No Incontinence, No Hematuria, No Retention; Other (Anaya catheter in place) Musculoskeletal: No: other, neck pain, shoulder pain, arm pain, back pain, hand pain, leg pain, foot pain Skin: Other (Sacral decubitus ulcer); No: Rash, Lesions, Jaundice, Bruising Neurological: No: Weakness, Numbness, Incoordination, Change in speech, Confusion, Seizures, Other Allergies: Coded Allergies: NO KNOWN ALLERGIES (Unverified , 02/17/23) Medications Current Medications Medications Dose Ordered Sig/Atilio Route Start Time Stop Time Status Last Admin Dose Admin Azithromycin 250 ml @ 125 mls/hr DAILY IV 08/20/25 10:00 Aspirin 81 mg DAILY PO 08/20/25 10:00 Atorvastatin Calcium 10 mg HS PO 08/19/25 22:00 Piperacillin Sod/ Tazobactam Sod 100 ml @ 25 mls/hr Q8HR IV 08/19/25 14:00 Sodium Chloride 1,000 ml @ 60 mls/hr [id number] IV 08/19/25 14:15 Acetaminophen/ Hydrocodone Bitart 1 tab Q4HP PRN PO 08/19/25 12:15 Ondansetron HCl 4 mg Q4HP PRN IV 08/19/25 12:15 Docusate Sodium 100 mg BIDPRN PRN PO 08/19/25 12:15 Acetaminophen 650 mg Q6HP PRN PO 08/19/25 12:15 Exam Vital Signs Vital Signs Date Time Temp Pulse Resp B/P (MAP) Pulse Ox O2 Delivery O2 Flow Rate FiO2 08/19/25 09:26 98.6 121 23 123/83 (96) 95 98.6 08/19/25 09:26 Nasal Cannula* 6 44 General Appearance: Alert, Oriented X3, Cooperative, No acute distress HEENT: Atraumatic, PERRLA, EOMI, Mucous membr. moist/pink Respiratory: Normal air movement, Other (Diminished breath sounds) Cardiovascular: Regular rate, Normal S1, Normal S2, No murmurs Abdominal: Normal bowel sounds, Soft, No tenderness, No hepatospenomegaly, No masses Extremities: No clubbing, No cyanosis, No edema, Normal pulses, No tenderness/swelling Skin: No rashes, No significant lesion Neuro: Normal speech, Normal tone, Sensation intact, Cranial nerves 3-12 NL, Reflexes 2+, Other (Generalized weakness) Psych/Mental Status: Mental status NL, Mood NL Labs/Xrays Labs Test 08/19/25 10:18 08/19/25 10:00 08/19/25 09:30 Range/Units Troponin I High Sensitivity 17 </=34 ng/L Urine Color Colorless Yellow Urine Clarity Turbid H Clear Urine pH 7.0 5.0-9.0 Urine Specific [place] 1.008 1.001-1.035 Urine Protein Negative Negative Urine Ketones 1+ H Negative Urine Blood Trace H Negative /uL Urine Nitrite Negative Negative Urine Bilirubin Negative Negative Urine Urobilinogen Normal Negative mg/dL Urine Leukocyte Esterase 2+ Negative /uL Urine RBC 9 0 - 4 /hpf Urine Microscopic WBC 32 H 0-5 /HPF Urine Squamous Epithelial Cells None seen <5 /hpf Urine Bacteria Few H None Seen /hpf Urine Mucus Few None Seen Urine Glucose Normal Normal mg/dL White Blood Count 27.5 H 4.4-10.8 10^3/uL Red Blood Count 4.18 4.0-5.20 10^6/uL Hemoglobin 11.8 L 12.2-16.2 g/dL Hematocrit 36.1 36.0-46.0 % Mean Corpuscular Volume 86.4 80.0-100.0 fL Mean Corpuscular Hemoglobin 28.2 28.0-32.0 pg Mean Corpuscular Hemoglobin Concent 32.6 32.0-36.0 g/dL Red Cell Distribution Width 14.5 H 11.8-14.3 % Platelet Count 485 H 140-450 10^3/uL Mean Platelet Volume 7.5 6.9-10.8 fL Neutrophils (%) (Auto) 37.0-80.0 % Lymphocytes (%) (Auto) 10.0-50.0 % Monocytes (%) (Auto) 0.0-12.0 % Basophils (%) (Auto) 0.0-2.0 % Neutrophils # (Auto) 1.6-8.6 10 ^3/uL Lymphocytes # (Auto) 0.4-5.4 10 ^3/uL Monocytes # (Auto) 0-1.3 10 ^3/uL Differential Total Cells Counted 100.0 100 Neutrophils % (Manual) 76 37.0-80.0 Band Neutrophils % (Manual) 5 Lymphocytes % (Manual) 3 L 10.0-50.0 Monocytes % (Manual) 11 0-12 Eosinophils % (Manual) 0 0-7 Basophils % (Manual) 0 0.0-2.0 Metamyelocytes % (manual) 0 Myelocytes % (Manual) 0 Promyelocytes % (Manual) 0 Blast Cells % (Manual) 0 Reactive Lymphocytes 5 Platelet Estimate Increased Poikilocytosis (manual) Slight Stomatocytes Many Sodium Level 138 136-145 mmol/L Potassium Level 3.6 3.5-5.1 mmol/L Chloride Level 87 L 98-107 mmol/L Carbon Dioxide Level > 40 *H 20-31 mmol/L Anion Gap 10.26513 5-15 Blood Urea Nitrogen 6 L 9-23 mg/dL Creatinine < 0.15 L 0.550-1.02 mg/dL Glomerular Filtration Rate Calc 142 >90 mL/min BUN/Creatinine Ratio 40.0 H 10.0-20.0 Serum Glucose 90 74-106 mg/dL Lactic Acid Level 0.7 0.4-2.0 mmol/L Calcium Level 9.7 8.7-10.4 mg/dL Total Bilirubin 0.6 0.2-1.0 mg/dL Aspartate Amino Transferase (AST) 17 13-40 U/L Alanine Aminotransferase (ALT) < 9 7-40 U/L Alkaline Phosphatase 97 46-116 U/L Total Protein 5.3 L 5.7-8.2 g/dL Albumin 3.0 L 3.2-4.8 g/dL PATIENT: DARIUS LUCEROCCT: [id number] UNIT: [id number] : 1960 LOC: ER ROOM / BED: / AGE / SEX: 64 / F ADM STATUS: REG ER SERVICE 0900 ORDERING PHYSICIAN: TOSHIA ESTRADA MD PROCEDURE(s): CXRP - CHEST PORTABLE REASON: sob ORDER NUMBER(s): [id number], ACCESSION NUMBER(s): [id number] INDICATION: sob TECHNIQUE: Single frontal view of the chest was obtained COMPARISON: XY CHEST PORTABLE on DOS: 08/01/25, XY CHEST XRAY 1 VIEW on DOS: 06/01/25, XY CHEST XRAY 1 VIEW on DOS: 05/29/25, XY CHEST PORTABLE on DOS: 05/28/25, XY CHEST XRAY 1 VIEW on DOS: 05/27/25 FINDINGS: Heart size is normal. Median sternotomy. Calcifications in the aorta. Lungs are hyperinflated with emphysematous changes. There is a right mid and lower lung opacity, likely combination of pleural effusion and consolidation. No pneumothorax. No acute osseous abnormality IMPRESSION: Right mid and lower lung opacity, likely a combination of consolidation and pleural effusion Emphysema. SEPSIS Sepsis Screen Date sepsis recognized/suspect: Aug 19, 2025 Time Sepsis recognized/suspect: 911 Recent Procedure: No On Antibiotic Therapy: No Respiratory Rate >20: Yes Heart Rate >90: Yes Temp<36 C (96.8 F) or >38.3 C: No SBP <90 or MAP <65 mmHG: No New Acute Mental Status Change: No Is the patient on CPAP, BIPAP,: No Physician Orders Chest Portable (08/19/25 09:00) Sodium Chloride 0.9% (08/19/25 09:00) Troponin-I Hs (08/19/25 12:00) Blood Culture (08/19/25 09:00) Urine Bacterial Culture (08/19/25 09:00) Ok To Change Anaya (08/19/25 10:06) Anaya Catheters (08/19/25 ) Chest Portable (08/19/25 12:14) Azithromycin 500mg/250ml (Zithromax 500m (08/20/25 10:00) Aspirin Chewable Tablet (08/20/25 10:00) Atorvastatin (Lipitor) (08/19/25 22:00) Piperacillin-Tazob 3.375gm (Zosyn 3.375g (08/19/25 14:00) Allergies (08/19/25 12:04) Code Status (08/19/25 12:04) Sodium Chloride 0.9% (08/19/25 14:15) Oxygen Per Hour (08/19/25 12:04) Hydrocodone-Acet 5/325mg Tab ([place] 5/32 (08/19/25 12:15) Ondansetron Hcl (Zofran) (08/19/25 12:15) Docusate Sodium Capsule (Colace Capsule) (08/19/25 12:15) Complete Blood Count (08/20/25 04:00) Comprehensive Metabolic Panel (08/20/25 04:00) Cardiac Diet-2gna,Lofat,Lochol (08/19/25 Lunch) Condition: Serious (08/19/25 12:04) Acetaminophen Tablet (Tylenol Tablet) (08/19/25 12:15) Bedrest With Bathroom Privileg (08/19/25 12:04) Sequential Compression Device (08/19/25 ) * Wound Consult (08/19/25 ) Admit (08/19/25 12:41) Nitroglycerin Sublingual (Ntrostat Subli (08/19/25 12:45) Morphine Sulfate Injection (08/19/25 12:45) Stat Ekg For Chest Pain (08/19/25 12:41) Notify Md Of Changes From Base (08/19/25 12:41) Motel Front Desk Attendant For 24 Hours (08/19/25 12:41) Emergency Dysrhythmia Protocol (08/19/25 12:41) Rhythm Strips Once Every Shift (08/19/25 12:41) Oxygen By Nasal Cannula (08/19/25 12:41) Vital Signs Date Time Temp Pulse Resp B/P (MAP) Pulse Ox O2 Delivery O2 Flow Rate FiO2 08/19/25 09:26 98.6 121 23 123/83 (96) 95 98.6 08/19/25 09:26 121 23 95 Nasal Cannula* 6 44 08/19/25 08:43 121 18 117/81 94 Laboratory Tests Test 08/19/25 09:30 Lactic Acid Level 0.7 mmol/L (0.4-2.0) White Blood Count 27.5 10^3/uL (4.4-10.8) H Assessment/Plan Assessment/Plan Sepsis, unspecified organism Thrombocytosis Sacral decubitus ulcer Sepsis due to urinary tract infection Generalized weakness Plan 1. Admit to telemetry unit 2. Breathing treatment 3. Pain control management 4. IV antibiotic management 5. Management of fluids and electrolytes 6. Consultation for hospitalist/wound care 7. Diagnostic test chest x-ray 8. DVT prophylaxis-on aspirin 9. Repeat labs CBC, CMP in a.m. 10. Home medication reviewed and reconciled 11. Continue with current medical management 12. Treatment plan discussed with patient and RN. Patient verbalized understanding. Plan discussed with: Patient, Other (RN) My Orders Orders - EDIL MACK DNP Procedure Category Date Status Time Azithromycin PHA 08/20/25 In Process 500mg/250ml 10:00 Aspirin Chewable PHA 08/20/25 In Process Tablet 10:00 Atorvastatin (Lipitor) PHA 08/19/25 In Process 22:00 Piperacillin-Tazob PHA 08/19/25 In Process 3.375gm (Zosyn 3.375g 14:00 Allergies LUIS ARMANDO 08/19/25 In Process 12:04 Code Status CODE 08/19/25 Transmitted 12:04 Sodium Chloride 0.9% PHA 08/19/25 In Process 14:15 Oxygen Per Hour RT 08/19/25 Transmitted 12:04 Hydrocodone-Acet PHA 08/19/25 In Process 5/325mg Tab ([place]by 12:15 Ondansetron Hcl PHA 08/19/25 In Process (Zofran) 12:15 Docusate Sodium PHA 08/19/25 In Process Capsule (Colace 12:15 Complete Blood Count LAB 08/20/25 Verified 04:00 Comprehensive LAB 08/20/25 Verified Metabolic Panel 04:00 Cardiac DIET 08/19/25 Transmitted Diet-2gna,Lofat,Lochol Lunch Condition: Serious LUIS ARMANDO 08/19/25 In Process 12:04 Acetaminophen Tablet PHA 08/19/25 In Process (Tylenol Tablet) 12:15 Bedrest With Bathroom LUIS ARMANDO 08/19/25 In Process Privileg 12:04 Sequential LUIS ARMANDO 08/19/25 In Process Compression Device * Wound Consult CONS 08/19/25 Transmitted Admit ADMIT 08/19/25 Transmitted 12:41 Nitroglycerin PHA 08/19/25 Transmitted Sublingual (Ntrostat 12:45 Morphine Sulfate PHA 08/19/25 Transmitted Injection 12:45 Stat Ekg For Chest LUIS ARMANDO 08/19/25 In Process Pain 12:41 Notify Of Changes LUIS ARMANDO 08/19/25 In Process From Base 12:41 Motel Front Desk Attendant For LUIS ARMANDO 08/19/25 In Process 24 Hours 12:41 Emergency Dysrhythmia LUIS ARMANDO 08/19/25 In Process Protocol 12:41 Rhythm Strips Once LUIS ARMANDO 08/19/25 In Process Every Shift 12:41 Oxygen By Nasal RT 08/19/25 Transmitted Cannula 12:41 Problem List: (1) Sepsis, unspecified organism (2) Thrombocytosis (3) Sacral decubitus ulcer (4) Sepsis due to urinary tract infection (5) Generalized weakness Date of Service: Aug 19, 2025 Billing Provider: EDIL MACK DNP Common Visit Codes: [id number] INP/OBS CARE (HIGH) EDIL MACK DNP Aug 19, 2025 12:55
[2025-08-19] MEDS: SODIUM CHLORIDE 0.9% 1,000 ML IV ONE ×2 (13:05→13:13)
[2025-08-19] MEDS: AZITHROMYCIN 500MG/250ML 250 ML IV ONE (13:26)
[2025-08-19] MEDS: SODIUM CHLORIDE 0.9% 1,000 ML IV SCH (14:15)
[2025-08-19] MEDS: PIPERACILLIN-TAZOB 3.375GM 100 ML IV SCH (14:25)
[2025-08-19 15:25] VITALS: PULSE 110; RESP 18; O2SAT 92
--- NOTE | 2025-08-19 15:27 | DVHNC2 ---
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[place]) Indication: Hypotension, CVP monitoring, Volume resuscitation, Inability to obtain IV, Suspected infection Room prepared for procedure: Yes Rn Admissions performed hand hygien: Yes Maximal sterile barrier precau: Mask/Eye shield, Sterile gown, Cap, Sterlie gl oves, Large sterlie drape Skin Preparation: Chlorhexidine gluconate Skin preparation completely dr: Yes Insertion site: Right, Internal jugular Central line catheter type: Oxp-[id number]-[id number] dialysis Number of lumens: 3 Central line exchanged over a: No Antiseptic ointment applied to: Yes Post Assessment: Chest X-Ray, No Pneumothorax Informed consent obtained: Yes Risks/benefits/alt described: Yes Notes A time out was performed. My hands were washed immediately prior to the procedure. I wore a surgical cap, mask with protective eyewear, full gown and sterile gloves throughout the procedure. The patient was placed in Trendelenburg position. RIGHT chest region was prepped using chlorhexidine scrub and draped in sterile fashion using a full drape and sterile probe cover and sterile gel employed. The medial and lateral heads of the sternocleidomastoid muscle were identified as was the carotid pulse. The Internal Jugular vein was identified using the ultrasound. Anesthesia was achieved over the vein using 1% lidocaine. Using real-time out of plane guidance, the introducer needle was inserted into the Internal Jugular vein under direct ultrasound visualization. Venous blood was withdrawn. The syringe was removed and a guidewire was advanced into the introducer needle. The guidewire was visualized in the Internal Jugular Vein by ultrasound. A small incision was made at the skin surface with a scalpel and the introducer needle was exchanged for a dilator over the guidewire. After appropriate dilation was obtained, the dilator was exchanged over the wire for a _ central venous catheter. The wire was removed and the catheter was sutured in place at [address] A sterile sorbaview shield was placed over the catheter at the insertion site. The patient tolerated the procedure without any hemodynamic compromise. At time of procedure completion, all ports aspirated and flushed properly. Post-procedure chest x-ray is pending at this time. Estimated blood loss is 5 ml Date of Service: Aug 19, 2025 Billing Provider: TOSHIA ESTRADA MD Common Visit Codes: PROCEDURE ONLY RU [place] RESIDENT Aug 19, 2025 15:27
[2025-08-19 15:30] VITALS: BP 131/79; PULSE 121; RESP 14; TEMP 98.3; O2SAT 90
[2025-08-19 20:00] VITALS: PULSE 115; RESP 16
[2025-08-19 21:00] VITALS: BP 147/97; PULSE 117; RESP 17; TEMP 97.4; O2SAT 96
[2025-08-19] MEDS: ATORVASTATIN 20 MG TAB PO SCH (21:42)
[2025-08-20] VITALS (9 sets, daily range): BP systolic 119–140; BP diastolic 77–93; PULSE 10–123; RESP 16–19; TEMP 97.1–98.7; O2SAT 94–100
[2025-08-20 06:45] LABS: Alkaline Phosphatase 91 U/L (46-116); Anion Gap 12 (5-15); BUN/Creatinine Ratio 36.8 (10.0-20.0); Calcium 9.2 mg/dL (8.7-10.4); Glucose 86 mg/dL (74-106); Sodium 140 mmol/L (136-145)
[2025-08-20 06:47] LABS: Bilirubin, Total 0.6 mg/dL (0.2-1.0)
[2025-08-20 06:49] LABS: Alanine Aminotransferase < 9 U/L (7-40); Albumin 2.9 g/dL (3.2-4.8); Blood Urea Nitrogen 7 mg/dL (9-23); Carbon Dioxide 37 mmol/L (20-31); Chloride 91 mmol/L (98-107); Potassium 2.9 mmol/L (3.5-5.1); Total Protein 5.1 g/dL (5.7-8.2)
[2025-08-20 07:25] LABS: Hematocrit 36.4 % (36.0-46.0); Hemoglobin 11.6 g/dL (12.2-16.2); Mean Corpuscular Hemoglobin 27.6 pg (28.0-32.0); Mean Corpuscular Volume 86.8 fL (80.0-100.0)
[2025-08-20 08:04] LABS: Total Cells Counted 100.0 (100)
[2025-08-20 08:05] LABS: Stomatocytes Few
[2025-08-20] MEDS: AZITHROMYCIN 500MG/250ML 250 ML IV SCH (09:53)
[2025-08-20] MEDS: POTASSIUM CHLORIDE 40 MEQ, LIDOCAINE 1% (LOCAL ANESTH.) 4 ML in SODIUM CHL 0.9% 250 ML IV ONE (13:30)
[2025-08-20 14:42] LABS: Base Excess 10.7 mmol/L (-2.0-3.0)
--- NOTE | 2025-08-20 14:54 | DVHPN2 ---
Subjective Patient denies any symptoms at this time. Appears somewhat encephalopathic Reviewed: Care Plan, H&P, Labs, Medications Changes from previous H/P or p: No Changes General: Per HPI Eyes: No Pain, No Vision change, No Conjunctivae inflammation, No Eyelid inflammation, No Other, No Redness ENT: No Ear pain, No Ear discharge, No Nose pain, No Nose discharge, No Nose congestion, No Mouth pain, No Mouth swelling, No Throat pain, No Throat swelling, No Other Cardiovascular: No Chest Pain, No Palpitations, No Orthopnea, No Paroxysmal Noc. Dyspnea, No Edema, No Lt Headedness, No Other Respiratory: No Cough, No Dry, No Shortness of breath, No SOB with excertion, No Wheezing, No Hemoptysis, No Pleuritic Pain, No Sputum, No Other Gastrointestinal: No Nausea, No Vomiting, No Abdominal Pain, No Diarrhea, No Constipation, No Melena, No Hematochezia, No Other Genitourinary: No Dysuria, No Frequency, No Incontinence, No Hematuria, No Retention; Other (Anaya catheter in place) Musculoskeletal: No other, No neck pain, No shoulder pain, No arm pain, No back pain, No hand pain, No leg pain, No foot pain Skin: No Rash, No Lesions, No Jaundice, No Bruising; Other (Sacral decubitus ulcer) Objective Vitals Vital Signs Date Time Temp Pulse Resp B/P (MAP) Pulse Ox O2 Delivery O2 Flow Rate FiO2 08/20/25 13:00 98.4 115 19 119/83 (95) 96 98.4 08/20/25 08:00 Nasal Cannula* 3 32 Intake/Output Intake and Output 08/20/25 07:00 Intake Total 1800 ml Balance 1800 ml Intake Oral 0 ml IV Total 1800 ml # Bowel Movements 2 General Appearance: Alert, Oriented X3, Cooperative, mild distress, Other (Encephalopathic) HEENT: Atraumatic, PERRLA Cardiovascular: Normal S1, Normal S2 Musculoskeletal: Normal sensory function, Normal motor function Neuro: Normal gait Skin: Dry, Intact Psych/Mental Status: Mental status NL, Mood NL Medications Current Medications Medications Dose Ordered Sig/Atilio Route Start Time Stop Time Status Last Admin Dose Admin Azithromycin 250 ml @ 125 mls/hr DAILY IV 08/20/25 10:00 08/20/25 09:53 125 MLS/HR Aspirin 81 mg DAILY PO 08/20/25 10:00 08/20/25 09:53 81 MG Atorvastatin Calcium 10 mg HS PO 08/19/25 22:00 Piperacillin Sod/ Tazobactam Sod 100 ml @ 25 mls/hr Q8HR IV 08/19/25 14:00 08/20/25 05:47 25 MLS/HR Sodium Chloride 1,000 ml @ 60 mls/hr [id number] IV 08/19/25 14:15 08/20/25 05:47 60 MLS/HR Acetaminophen/ Hydrocodone Bitart 1 tab Q4HP PRN PO 08/19/25 12:15 Ondansetron HCl 4 mg Q4HP PRN IV 08/19/25 12:15 Docusate Sodium 100 mg BIDPRN PRN PO 08/19/25 12:15 Acetaminophen 650 mg Q6HP PRN PO 08/19/25 12:15 Nitroglycerin 0.4 mg Q5MINP PRN SL 08/19/25 12:45 Morphine Sulfate 2 mg Q30M PRN IV 08/19/25 12:45 Albuterol 2.5 mg Q6HWA [facility] 08/20/25 18:00 Ipratropium [place] 0.5 mg Q6HWA [facility] 08/20/25 18:00 Laboratory Results Laboratory Tests 08/20/25 05:50 Chemistry Test 08/20/25 05:50 Albumin 2.9 g/dL (3.2-4.8) L Calcium Level 9.2 mg/dL (8.7-10.4) Total Protein 5.1 g/dL (5.7-8.2) L LFT Test 08/20/25 05:50 Alanine Aminotransferase (ALT) < 9 U/L (7-40) Alkaline Phosphatase 91 U/L (46-116) Aspartate Amino Transferase (AST) 16 U/L (13-40) Total Bilirubin 0.6 mg/dL (0.2-1.0) Urinalysis Test 08/19/25 10:00 Urine Color Colorless (Yellow) Urine Clarity Turbid (Clear) H Urine pH 7.0 (5.0-9.0) Urine Specific [place] 1.008 (1.001-1.035) Urine Protein Negative (Negative) Urine Ketones 1+ (Negative) H Urine Blood Trace /uL (Negative) H Urine Nitrite Negative (Negative) Urine Bilirubin Negative (Negative) Urine Urobilinogen Normal mg/dL (Negative) Urine Leukocyte Esterase 2+ /uL (Negative) Urine RBC 9 /hpf (0 - 4) Urine Microscopic WBC 32 /HPF (0-5) H Urine Squamous Epithelial Cells None seen /hpf (<5) Urine Bacteria Few /hpf (None Seen) H Urine Mucus Few (None Seen) Urine Glucose Normal mg/dL (Normal) Blood Gas Results Test 08/20/25 14:34 Arterial Blood pH 7.395 (7.350-7.450) FiO2 % 32.0 Microbiology Microbiology Date/Time Source Procedure Growth Status 08/19/25 10:18 Blood Blood Culture - Preliminary NO GROWTH AFTER 24 HOURS OF INCUBATION. Resulted 08/19/25 10:00 Voided Urine Urine Culture - Preliminary Resulted Labs and/or images reviewed: Labs reviewed by me, Image(s) reviewed by me Assessment/Plan Assessment/Plan Impression: -sepsis -community-acquired pneumonia, right lower lobe -probable hypercarbic respiratory failure -metabolic encephalopathy -complicated cystitis -hypokalemia -COPD without exacerbation Plan: -continue antibiotic therapy -trial of BiPAP for hypercarbic failure -urine culture, blood culture -bronchodilators -potassium replacement -Pulmicort -repeat labs and chest x-ray in a.m. Total time spent with patient discussing and formulating plan of care: 35 minutes. This medical document was created using an electronic medical record system with Seen dictation system. Although this document has been carefully reviewed, there may still be some phonetic and typographical errors. These areas are purely typographical due to imperfections of the software programs, and do not reflect any compromise in the patient's medical care. Plan discussed with: Patient, Other (RN) My Orders Orders - YULIA WEBB CHIEF FUNDRAISING OFFICER Procedure Category Date Status Time Abg W/ Co-Ox RT 08/20/25 Logged 13:29 Potassium Chloride PHA 08/20/25 In Process (Potassium Chloride). 13:30 Albuterol Medneb PHA 08/20/25 In Process (Ventolin Medneb) 18:00 Ipratropium Medneb PHA 08/20/25 In Process (Atrovent Medneb) 18:00 Basic Metabolic Panel LAB 08/21/25 Verified 04:00 Magnesium LAB 08/21/25 Verified 04:00 Chest Portable XY 08/21/25 Logged 04:00 2 Gm Sodium Diet DIET 08/20/25 Transmitted Lunch BIPAP RT 08/20/25 Verified 14:45 Complete Blood Count LAB 08/21/25 Verified 04:00 Date of Service: Aug 20, 2025 Billing Provider: YULIA WEBB NP Common Visit Codes: [id number] INP/OBS CARE(HIGH) YULIA WEBB NP Aug 20, 2025 14:54
[2025-08-20] MEDS: IPRATROPIUM BROM 0.5 MG/2.5ML INH SOL NEB SCH (18:00)
[2025-08-20] MEDS: ALBUTEROL SULF 2.5 MG/0.5ML(0.5%) NEB SOLN NEB SCH (18:00)
[2025-08-21] VITALS (18 sets, daily range): BP systolic 116–142; BP diastolic 61–91; PULSE 68–121; RESP 14–20; TEMP 97.1–98.4; O2SAT 8–100
[2025-08-21] MEDS: HYDROcodone-ACET 5/325MG TAB PO PRN (04:57)
--- NOTE | 2025-08-21 06:02 | DVH ---
CHEST RADIOGRAPH Indication: pna Technique: Single frontal view of the chest was obtained Comparison: XY CHEST PORTABLE on DOS: 08/19/25 FINDINGS: Lines and Tubes: There is a right central venous catheter with its tip terminating in the superior vena cava. Lungs: There is right basilar consolidation. Pleura: No effusion. No pneumothorax. Cardiomediastinal contours: There is a cardiac valve prosthesis. No evidence of cardiomegaly. Bones: No acute osseous abnormality. Status post median sternotomy. IMPRESSION: 1. Right basilar consolidation similar to prior study.
[2025-08-21 07:18] LABS: Anion Gap 11 (5-15); Potassium 4.0 mmol/L (3.5-5.1); Sodium 143 mmol/L (136-145)
[2025-08-21 07:20] LABS: Calcium 9.2 mg/dL (8.7-10.4)
[2025-08-21 07:24] LABS: Glucose 93 mg/dL (74-106)
[2025-08-21 07:25] LABS: BUN/Creatinine Ratio 45.5 (10.0-20.0); Blood Urea Nitrogen 10 mg/dL (9-23); Carbon Dioxide 36 mmol/L (20-31); Chloride 96 mmol/L (98-107); Magnesium 1.6 mg/dL (1.6-2.6)
[2025-08-21 09:14] LABS: Hematocrit 35.0 % (36.0-46.0); Hemoglobin 11.2 g/dL (12.2-16.2); Mean Corpuscular Hemoglobin 28.2 pg (28.0-32.0); Mean Corpuscular Volume 88.5 fL (80.0-100.0); Nucleated Red Blood Cells % 0.0 %
[2025-08-21] MEDS ORDERED: VANCOMYCIN PER PHARMACY 0 MG IV SCH (09:30)
[2025-08-21] MEDS: VANCOMYCIN 1.5GM/250ML 250 ML IV ONE (10:36)
--- NOTE | 2025-08-21 10:51 | DVHPN2 ---
Subjective Patient A&O x4. Decided states that her breathing has improved. Reviewed: Care Plan, H&P, Labs, Medications Changes from previous H/P or p: Changes General: Per HPI Eyes: No Pain, No Vision change, No Conjunctivae inflammation, No Eyelid inflammation, No Other, No Redness ENT: No Ear pain, No Ear discharge, No Nose pain, No Nose discharge, No Nose congestion, No Mouth pain, No Mouth swelling, No Throat pain, No Throat swelling, No Other Cardiovascular: No Chest Pain, No Palpitations, No Orthopnea, No Paroxysmal Noc. Dyspnea, No Edema, No Lt Headedness, No Other Respiratory: No Cough, No Dry, No Shortness of breath, No SOB with excertion, No Wheezing, No Hemoptysis, No Pleuritic Pain, No Sputum, No Other Gastrointestinal: No Nausea, No Vomiting, No Abdominal Pain, No Diarrhea, No Constipation, No Melena, No Hematochezia, No Other Genitourinary: Other Musculoskeletal: No other, No neck pain, No shoulder pain, No arm pain, No back pain, No hand pain, No leg pain, No foot pain Skin: Other Objective Vitals Vital Signs Date Time Temp Pulse Resp B/P (MAP) Pulse Ox O2 Delivery O2 Flow Rate FiO2 08/21/25 08:55 98.4 117 16 132/84 (100) 96 98.4 08/21/25 08:06 Room Air* 0 21 Intake/Output Intake and Output 08/21/25 07:00 Intake Total 924.0 ml Output Total 400 ml Balance 524.0 ml Intake Oral 200 ml IV Total 724.0 ml Output Urine Total 400 ml # Bowel Movements 1 General Appearance: Alert, Oriented X3, Cooperative, mild distress HEENT: Atraumatic, PERRLA Lungs: Clear to auscultation, Normal air movement Cardiovascular: Normal S1, Normal S2 Abdomen: Normal bowel sounds, Soft, No tenderness, No hepatospenomegaly, No masses Musculoskeletal: Normal sensory function, Normal motor function Neuro: Normal gait, Normal speech, Cranial nerves 3-12 NL Skin: Dry, Intact Psych/Mental Status: Mental status NL, Mood NL Medications Current Medications Medications Dose Ordered Sig/Atilio Route Start Time Stop Time Status Last Admin Dose Admin Aspirin 81 mg DAILY PO 08/20/25 10:00 08/21/25 10:33 81 MG Atorvastatin Calcium 10 mg HS PO 08/19/25 22:00 08/20/25 21:26 10 MG Sodium Chloride 1,000 ml @ 60 mls/hr [id number] IV 08/19/25 14:15 08/20/25 23:42 60 MLS/HR Acetaminophen/ Hydrocodone Bitart 1 tab Q4HP PRN PO 08/19/25 12:15 08/21/25 04:57 1 TAB Ondansetron HCl 4 mg Q4HP PRN IV 08/19/25 12:15 Docusate Sodium 100 mg BIDPRN PRN PO 08/19/25 12:15 Acetaminophen 650 mg Q6HP PRN PO 08/19/25 12:15 Nitroglycerin 0.4 mg Q5MINP PRN SL 08/19/25 12:45 Morphine Sulfate 2 mg Q30M PRN IV 08/19/25 12:45 Albuterol 2.5 mg Q6HWA [facility] 08/20/25 18:00 08/21/25 07:56 2.5 MG Ipratropium [place] 0.5 mg Q6HWA [facility] 08/20/25 18:00 08/21/25 07:56 0.5 MG Vancomycin HCl 0 ml @ 0 mls/hr PER PHARMACY IV 08/21/25 09:30 Cefepime HCl 50 ml @ 12.5 mls/hr Q8HR IV 08/21/25 14:00 Laboratory Results Laboratory Tests 08/21/25 06:52 Chemistry Test 08/21/25 06:52 Calcium Level 9.2 mg/dL (8.7-10.4) Magnesium Level 1.6 mg/dL (1.6-2.6) Urinalysis Test 08/19/25 10:00 Urine Color Colorless (Yellow) Urine Clarity Turbid (Clear) H Urine pH 7.0 (5.0-9.0) Urine Specific [place] 1.008 (1.001-1.035) Urine Protein Negative (Negative) Urine Ketones 1+ (Negative) H Urine Blood Trace /uL (Negative) H Urine Nitrite Negative (Negative) Urine Bilirubin Negative (Negative) Urine Urobilinogen Normal mg/dL (Negative) Urine Leukocyte Esterase 2+ /uL (Negative) Urine RBC 9 /hpf (0 - 4) Urine Microscopic WBC 32 /HPF (0-5) H Urine Squamous Epithelial Cells None seen /hpf (<5) Urine Bacteria Few /hpf (None Seen) H Urine Mucus Few (None Seen) Urine Glucose Normal mg/dL (Normal) Blood Gas Results Test 08/20/25 14:34 Arterial Blood pH 7.395 (7.350-7.450) FiO2 % 32.0 Microbiology Microbiology Date/Time Source Procedure Growth Status 08/19/25 10:18 Blood Blood Culture - Preliminary NO GROWTH AFTER 48 HOURS OF INCUBATION. Resulted 08/19/25 10:00 Voided Urine Urine Culture - Preliminary Resulted Labs and/or images reviewed: Labs reviewed by me, Image(s) reviewed by me Assessment/Plan Assessment/Plan Impression: -sepsis -community-acquired pneumonia, right lower lobe -probable hypercarbic respiratory failure -metabolic encephalopathy -complicated cystitis -hypokalemia -COPD without exacerbation Plan: Events: Patient more alert. Following commands. -BiPAP prn -change antibiotic therapy to cefepime and vancomycin -urine culture, blood culture : Pending -bronchodilators -Pulmicort -repeat labs and chest x-ray in a.m. -discussed code status with the patient and son. Patient will be made DNR status. Total time spent with patient discussing and formulating plan of care: 35 minutes. Total time spent with patient and family regarding advance care plannin minutes. This medical document was created using an electronic medical record system with [employer] dictation system. Although this document has been carefully reviewed, there may still be some phonetic and typographical errors. These areas are purely typographical due to imperfections of the software programs, and do not reflect any compromise in the patient's medical care. 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 MECHANIC Procedure Category Date Status Time Abg W/ Co-Ox RT 08/20/25 Logged 13:29 Albuterol Medneb PHA 08/20/25 In Process (Ventolin Medneb) 18:00 Ipratropium Medneb PHA 08/20/25 In Process (Atrovent Medneb) 18:00 Chest Portable XY 08/21/25 Resulted 04:00 BIPAP RT 08/20/25 Logged 14:45 2 Gm Sodium Diet DIET 08/20/25 Transmitted Dinner Cleanse Wound With LUIS ARMANDO 08/20/25 In Process Wound Clean 11:38 * Dietary Consult CONS 08/20/25 Transmitted 16:39 Apply Z-Guard LUIS ARMANDO 08/20/25 In Process 11:38 Vancomycin Per PHA 08/21/25 In Process Pharmacy 09:30 Cefepime 1gm/50ml PHA 08/21/25 In Process (Maxipime 1gm/50ml) 14:00 Chest Portable XY 08/22/25 Logged 04:00 Comprehensive LAB 08/22/25 Verified Metabolic Panel 04:00 Complete Blood Count LAB 08/22/25 Verified 04:00 Vancomycin PHA 08/21/25 In Process 1.5gm/250ml 10:00 Vancomycin,Random LAB 08/22/25 Verified 04:00 Nutritional PHA 08/21/25 Verified Supplements (Ensure 18:00 Code Status CODE 08/21/25 Verified 10:48 Date of Service: Aug 21, 2025 Billing Provider: YULIA WEBB NP Common Visit Codes: [id number] INP/OBS CARE(HIGH) Secondary Visit Codes: [id number] CARE PLAN 30 MINUTES YULIA WEBB NP Aug 21, 2025 10:50
[2025-08-21] MEDS: CEFEPIME 1GM/50ML 50 ML IV SCH (14:00)
[2025-08-21] MEDS: ENSURE CLEAR Mixed Berry 8oz Carton PO SCH (15:00)
[2025-08-21] MEDS: VANCOMYCIN 750mg/100mL IV SCH (19:08)
[2025-08-22] VITALS (12 sets, daily range): BP systolic 103–130; BP diastolic 64–91; PULSE 91–113; RESP 18–20; TEMP 97.6–98.3; O2SAT 91–100
[2025-08-22 06:37] LABS: Hematocrit 31.8 % (36.0-46.0); Hemoglobin 10.3 g/dL (12.2-16.2); Mean Corpuscular Hemoglobin 28.3 pg (28.0-32.0); Mean Corpuscular Volume 87.0 fL (80.0-100.0)
[2025-08-22 06:55] LABS: Alkaline Phosphatase 67 U/L (46-116); Calcium 8.7 mg/dL (8.7-10.4)
[2025-08-22 06:56] LABS: Alanine Aminotransferase < 9 U/L (7-40); Albumin 2.3 g/dL (3.2-4.8); Anion Gap 6 (5-15); BUN/Creatinine Ratio 29.4 (10.0-20.0); Bilirubin, Total 0.4 mg/dL (0.2-1.0); Blood Urea Nitrogen 10 mg/dL (9-23); Carbon Dioxide 39 mmol/L (20-31); Chloride 94 mmol/L (98-107); Glucose 74 mg/dL (74-106); Potassium 3.0 mmol/L (3.5-5.1); Sodium 139 mmol/L (136-145); Total Protein 4.2 g/dL (5.7-8.2)
--- NOTE | 2025-08-22 06:58 | DVH ---
CHEST RADIOGRAPH Indication: pna Technique: Single frontal view of the chest was obtained COMPARISON: XY CHEST PORTABLE on DOS: 08/21/25, XY CHEST PORTABLE on DOS: 08/19/25, XY CHEST PORTABLE on DOS: 08/19/25, XY CHEST PORTABLE on DOS: 08/01/25, XY CHEST XRAY 1 VIEW on DOS: 06/01/25 FINDINGS: Lines and Tubes: Unchanged. Lungs: Stable appearing right pleural effusion and right basilar pulmonary airspace disease. No pneumothorax. Cardiomediastinal contours: Unremarkable status post median sternotomy. Bones: Unremarkable IMPRESSION: 1. Stable appearing right pleural effusion and right basilar pulmonary airspace disease. 2. Lines and tubes unchanged.
[2025-08-22 07:41] LABS: Total Cells Counted 100.0 (100)
--- NOTE | 2025-08-22 11:16 | MEDREC ---
[facility] Intervention Section I [facility] Intervention: Review courses of therapy (URINE CULTURE KLEBSIELLA PNEUMO ESBL, RESISTANT TO CEFEPIME. CONSIDER CHANGING TO ERTAPENEM OR MEROPENEM.) BRIA WOODS PHARMACIST Aug 22, 2025 11:16
--- NOTE | 2025-08-22 17:12 | DVHPN2 ---
Subjective Overnight events noted. Patient's state breathing is much better. Reviewed: Care Plan, H&P, Labs, Medications Changes from previous H/P or p: No Changes General: Per HPI Eyes: No Pain, No Vision change, No Conjunctivae inflammation, No Eyelid inflammation, No Other, No Redness ENT: No Ear pain, No Ear discharge, No Nose pain, No Nose discharge, No Nose congestion, No Mouth pain, No Mouth swelling, No Throat pain, No Throat swelling, No Other Cardiovascular: No Chest Pain, No Palpitations, No Orthopnea, No Paroxysmal Noc. Dyspnea, No Edema, No Lt Headedness, No Other Respiratory: No Cough, No Dry, No Shortness of breath, No SOB with excertion, No Wheezing, No Hemoptysis, No Pleuritic Pain, No Sputum, No Other Gastrointestinal: No Nausea, No Vomiting, No Abdominal Pain, No Diarrhea, No Constipation, No Melena, No Hematochezia, No Other Genitourinary: Other Musculoskeletal: No other, No neck pain, No shoulder pain, No arm pain, No back pain, No hand pain, No leg pain, No foot pain Skin: Other Objective Vitals Vital Signs Date Time Temp Pulse Resp B/P (MAP) Pulse Ox O2 Delivery O2 Flow Rate FiO2 08/22/25 16:40 97.7 102 18 115/71 (86) 91 97.7 08/22/25 10:58 Nasal Cannula* 2 28 Intake/Output Intake and Output 08/22/25 07:00 Intake Total 1050.35 ml Output Total 250 ml Balance 800.35 ml Intake Oral 650 ml IV Total 400.35 ml Output Urine Total 250 ml # Bowel Movements 1 Exam HEENT pupils are reactive Neck is supple CV is S1-S2 regular rate and rhythm Respiratory diminished breath sounds bases GI positive bowel sound Extremity no edema [employer] no motor deficit General Appearance: Alert, Oriented X3, Cooperative, mild distress HEENT: Atraumatic, PERRLA Lungs: Clear to auscultation, Normal air movement Cardiovascular: Normal S1, Normal S2 Abdomen: Normal bowel sounds, Soft, No tenderness, No hepatospenomegaly, No masses Musculoskeletal: Normal sensory function, Normal motor function Neuro: Normal gait, Normal speech, Cranial nerves 3-12 NL Skin: Dry, Intact Psych/Mental Status: Mental status NL, Mood NL Medications Current Medications Medications Dose Ordered Sig/Atilio Route Start Time Stop Time Status Last Admin Dose Admin Aspirin 81 mg DAILY PO 08/20/25 10:00 08/22/25 09:59 81 MG Atorvastatin Calcium 10 mg HS PO 08/19/25 22:00 08/21/25 21:20 10 MG Sodium Chloride 1,000 ml @ 60 mls/hr [id number] IV 08/19/25 14:15 08/22/25 08:55 60 MLS/HR Acetaminophen/ Hydrocodone Bitart 1 tab Q4HP PRN PO 08/19/25 12:15 08/22/25 14:11 1 TAB Ondansetron HCl 4 mg Q4HP PRN IV 08/19/25 12:15 Docusate Sodium 100 mg BIDPRN PRN PO 08/19/25 12:15 Acetaminophen 650 mg Q6HP PRN PO 08/19/25 12:15 Nitroglycerin 0.4 mg Q5MINP PRN SL 08/19/25 12:45 Morphine Sulfate 2 mg Q30M PRN IV 08/19/25 12:45 Albuterol 2.5 mg Q6HWA [facility] 08/20/25 18:00 08/22/25 05:40 2.5 MG Ipratropium [place] 0.5 mg Q6HWA [facility] 08/20/25 18:00 08/22/25 05:40 0.5 MG Vancomycin HCl 0 ml @ 0 mls/hr PER PHARMACY IV 08/21/25 09:30 Cefepime HCl 50 ml @ 12.5 mls/hr Q8HR IV 08/21/25 14:00 08/22/25 14:11 12.5 MLS/HR Enteral Nutritional Formula 240 ml BIDWM PO 08/21/25 12:00 08/22/25 08:00 240 ML Vancomycin HCl 100 ml @ 100 mls/hr Q8H IV 08/21/25 18:00 08/22/25 10:00 100 MLS/HR Laboratory Results Laboratory Tests 08/22/25 05:23 Chemistry Test 08/22/25 05:23 Albumin 2.3 g/dL (3.2-4.8) L Calcium Level 8.7 mg/dL (8.7-10.4) Total Protein 4.2 g/dL (5.7-8.2) L LFT Test 08/22/25 05:23 Alanine Aminotransferase (ALT) < 9 U/L (7-40) Alkaline Phosphatase 67 U/L (46-116) Aspartate Amino Transferase (AST) 17 U/L (13-40) Total Bilirubin 0.4 mg/dL (0.2-1.0) Urinalysis Test 08/19/25 10:00 Urine Color Colorless (Yellow) Urine Clarity Turbid (Clear) H Urine pH 7.0 (5.0-9.0) Urine Specific [place] 1.008 (1.001-1.035) Urine Protein Negative (Negative) Urine Ketones 1+ (Negative) H Urine Blood Trace /uL (Negative) H Urine Nitrite Negative (Negative) Urine Bilirubin Negative (Negative) Urine Urobilinogen Normal mg/dL (Negative) Urine Leukocyte Esterase 2+ /uL (Negative) Urine RBC 9 /hpf (0 - 4) Urine Microscopic WBC 32 /HPF (0-5) H Urine Squamous Epithelial Cells None seen /hpf (<5) Urine Bacteria Few /hpf (None Seen) H Urine Mucus Few (None Seen) Urine Glucose Normal mg/dL (Normal) Microbiology Microbiology Date/Time Source Procedure Growth Status 08/19/25 10:18 Blood Blood Culture - Preliminary NO GROWTH AFTER 72 HOURS OF INCUBATION. Resulted 08/19/25 10:00 Voided Urine Urine Culture - Final Klebsiella pneumoniae - ESBL Complete Assessment/Plan Assessment/Plan 64-year-old female with a known history of COPD initially presented to the hospital with shortness of breaths found to have 1. Sepsis secondary to community-acquired pneumonia 2. Community-acquired pneumonia suspected in the right lobe 3. Acute metabolic encephalopathy currently resolved 4. ESBL UTI 5. COPD not in exacerbation -discontinue vancomycin, continue cefepime, add in once, keep the respiratory and contact isolation. -we will assess for home oxygen requirement upon discharge. Plan discussed with: Patient, Daughter Date of Service: Aug 22, 2025 Billing Provider: ADILENE ROSS MD Common Visit Codes: [id number] INP/OBS CARE(HIGH) ADILENE ROSS MD Aug 22, 2025 17:12
[2025-08-23] VITALS (14 sets, daily range): BP systolic 98–120; BP diastolic 65–77; PULSE 89–106; RESP 16–20; TEMP 97.3–98.7; O2SAT 93–100
[2025-08-23 07:04] LABS: Hematocrit 35.3 % (36.0-46.0); Hemoglobin 11.3 g/dL (12.2-16.2); Mean Corpuscular Hemoglobin 27.9 pg (28.0-32.0); Mean Corpuscular Volume 86.9 fL (80.0-100.0)
[2025-08-23 07:56] LABS: Nucleated Red Blood Cells % 1.0 %; Total Cells Counted 100.0 (100)
[2025-08-23] MEDS: CEFEPIME 1GM/50ML 50 ML IV SCH (15:47)
--- NOTE | 2025-08-23 17:24 | DVHPN2 ---
Subjective Patient is feeling much better Reviewed: Care Plan, H&P, Labs, Medications Changes from previous H/P or p: No Changes General: Per HPI Eyes: No Pain, No Vision change, No Conjunctivae inflammation, No Eyelid inflammation, No Other, No Redness ENT: No Ear pain, No Ear discharge, No Nose pain, No Nose discharge, No Nose congestion, No Mouth pain, No Mouth swelling, No Throat pain, No Throat swelling, No Other Cardiovascular: No Chest Pain, No Palpitations, No Orthopnea, No Paroxysmal Noc. Dyspnea, No Edema, No Lt Headedness, No Other Respiratory: No Cough, No Dry, No Shortness of breath, No SOB with excertion, No Wheezing, No Hemoptysis, No Pleuritic Pain, No Sputum, No Other Gastrointestinal: No Nausea, No Vomiting, No Abdominal Pain, No Diarrhea, No Constipation, No Melena, No Hematochezia, No Other Genitourinary: Other Musculoskeletal: No other, No neck pain, No shoulder pain, No arm pain, No back pain, No hand pain, No leg pain, No foot pain Skin: Other Objective Vitals Vital Signs Date Time Temp Pulse Resp B/P (MAP) Pulse Ox O2 Delivery O2 Flow Rate FiO2 08/23/25 17:02 98.1 97 20 98/66 (77) 97 98.1 08/23/25 12:34 Nasal Cannula* 3 32 Intake/Output Intake and Output 08/23/25 07:00 Intake Total 1000 ml Output Total 900 ml Balance 100 ml Intake Oral 800 ml IV Total 200 ml Output Urine Total 900 ml # Bowel Movements 1 Exam HEENT pupils are reactive Neck is supple CV is S1-S2 regular rate and rhythm Respiratory diminished breath sounds bases GI positive bowel sound Extremity no 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 General Appearance: Alert, Oriented X3, Cooperative, mild distress HEENT: Atraumatic, PERRLA Lungs: Clear to auscultation, Normal air movement Cardiovascular: Normal S1, Normal S2 Abdomen: Normal bowel sounds, Soft, No tenderness, No hepatospenomegaly, No masses Musculoskeletal: Normal sensory function, Normal motor function Neuro: Normal gait, Normal speech, Cranial nerves 3-12 NL Skin: Dry, Intact Psych/Mental Status: Mental status NL, Mood NL Medications Current Medications Medications Dose Ordered Sig/Atilio Route Start Time Stop Time Status Last Admin Dose Admin Aspirin 81 mg DAILY PO 08/20/25 10:00 08/23/25 09:00 81 MG Atorvastatin Calcium 10 mg HS PO 08/19/25 22:00 08/22/25 22:22 10 MG Sodium Chloride 1,000 ml @ 60 mls/hr [id number] IV 08/19/25 14:15 08/23/25 06:18 60 MLS/HR Acetaminophen/ Hydrocodone Bitart 1 tab Q4HP PRN PO 08/19/25 12:15 08/23/25 13:10 1 TAB Ondansetron HCl 4 mg Q4HP PRN IV 08/19/25 12:15 Docusate Sodium 100 mg BIDPRN PRN PO 08/19/25 12:15 Acetaminophen 650 mg Q6HP PRN PO 08/19/25 12:15 Nitroglycerin 0.4 mg Q5MINP PRN SL 08/19/25 12:45 Morphine Sulfate 2 mg Q30M PRN IV 08/19/25 12:45 Albuterol 2.5 mg Q6HWA [facility] 08/20/25 18:00 08/23/25 12:34 2.5 MG Ipratropium [place] 0.5 mg Q6HWA [facility] 08/20/25 18:00 08/23/25 12:34 0.5 MG Enteral Nutritional Formula 240 ml BIDWM PO 08/21/25 12:00 08/23/25 08:00 240 ML Cefepime HCl 50 ml @ 12.5 mls/hr Q12H IV 08/23/25 18:00 08/23/25 15:47 12.5 MLS/HR Ertapenem 1 gm DAILY IV 08/24/25 10:00 Laboratory Results Laboratory Tests 08/22/25 05:23 08/23/25 06:30 Urinalysis Test 08/19/25 10:00 Urine Color Colorless (Yellow) Urine Clarity Turbid (Clear) H Urine pH 7.0 (5.0-9.0) Urine Specific [place] 1.008 (1.001-1.035) Urine Protein Negative (Negative) Urine Ketones 1+ (Negative) H Urine Blood Trace /uL (Negative) H Urine Nitrite Negative (Negative) Urine Bilirubin Negative (Negative) Urine Urobilinogen Normal mg/dL (Negative) Urine Leukocyte Esterase 2+ /uL (Negative) Urine RBC 9 /hpf (0 - 4) Urine Microscopic WBC 32 /HPF (0-5) H Urine Squamous Epithelial Cells None seen /hpf (<5) Urine Bacteria Few /hpf (None Seen) H Urine Mucus Few (None Seen) Urine Glucose Normal mg/dL (Normal) Microbiology Microbiology Date/Time Source Procedure Growth Status 08/19/25 10:18 Blood Blood Culture - Preliminary NO GROWTH AFTER 72 HOURS OF INCUBATION. Resulted 08/19/25 10:00 Voided Urine Urine Culture - Final Klebsiella pneumoniae - ESBL Complete Assessment/Plan Assessment/Plan 64-year-old female with a known history of COPD initially presented to the hospital with shortness of breaths found to have 1. Sepsis secondary to community-acquired pneumonia 2. Community-acquired pneumonia suspected in the right lobe 3. Acute metabolic encephalopathy currently resolved 4. ESBL UTI 5. COPD not in exacerbation -discontinue vancomycin, continue cefepime, add in once, keep the respiratory and contact isolation. -we will assess for home oxygen requirement upon discharge. Plan discussed with: Patient My Orders Orders - ADILENE ROSS MD Procedure Category Date Status Time Ertapenem Sod Inj PHA 08/24/25 In Process (Invanz) 10:00 Date of Service: Aug 23, 2025 Billing Provider: ADILENE ROSS MD Common Visit Codes: [id number] INP/OBS CARE(HIGH) ADILENE ROSS MD Aug 23, 2025 17:24
[2025-08-24] VITALS (17 sets, daily range): BP systolic 99–149; BP diastolic 47–91; PULSE 91–112; RESP 14–18; TEMP 97.7–98.5; O2SAT 94–100
[2025-08-24] MEDS ORDERED: ERTAPENEM SOD 1 GM INJ VIAL IV SCH (10:00)
[2025-08-24] MEDS ORDERED: ERTAPENEM SOD INJ 1 GM in SODIUM CHL 0.9% 50 ML IV ONE (10:30)
[2025-08-24 10:38] LABS: Alkaline Phosphatase 69 U/L (46-116); Anion Gap 6 (5-15); BUN/Creatinine Ratio 20.8 (10.0-20.0); Blood Urea Nitrogen 15 mg/dL (9-23)
[2025-08-24 10:44] LABS: Alanine Aminotransferase < 9 U/L (7-40); Albumin 2.3 g/dL (3.2-4.8); Bilirubin, Total 0.3 mg/dL (0.2-1.0); Calcium 8.5 mg/dL (8.7-10.4); Carbon Dioxide 36 mmol/L (20-31); Chloride 94 mmol/L (98-107); Glucose 73 mg/dL (74-106); Potassium 2.9 mmol/L (3.5-5.1); Sodium 136 mmol/L (136-145); Total Protein 4.0 g/dL (5.7-8.2)
[2025-08-24] MEDS ORDERED: CEFEPIME 1GM/50ML 50 ML IV SCH ×2 (11:15→18:00)
--- NOTE | 2025-08-24 11:23 | DVHPN2 ---
Subjective Patient denies any symptoms at this time Reviewed: Care Plan, H&P, Labs, Medications Changes from previous H/P or p: No Changes General: Per HPI Eyes: No Pain, No Vision change, No Conjunctivae inflammation, No Eyelid inflammation, No Other, No Redness ENT: No Ear pain, No Ear discharge, No Nose pain, No Nose discharge, No Nose congestion, No Mouth pain, No Mouth swelling, No Throat pain, No Throat swelling, No Other Cardiovascular: No Chest Pain, No Palpitations, No Orthopnea, No Paroxysmal Noc. Dyspnea, No Edema, No Lt Headedness, No Other Respiratory: No Cough, No Dry, No Shortness of breath, No SOB with excertion, No Wheezing, No Hemoptysis, No Pleuritic Pain, No Sputum, No Other Gastrointestinal: No Nausea, No Vomiting, No Abdominal Pain, No Diarrhea, No Constipation, No Melena, No Hematochezia, No Other Genitourinary: Other Musculoskeletal: No other, No neck pain, No shoulder pain, No arm pain, No back pain, No hand pain, No leg pain, No foot pain Skin: Other Objective Vitals Vital Signs Date Time Temp Pulse Resp B/P (MAP) Pulse Ox O2 Delivery O2 Flow Rate FiO2 08/24/25 09:00 98.5 98 16 115/73 (87) 97 98.5 08/24/25 06:03 Nasal Cannula 3.0 08/23/25 20:00 21 Intake/Output Intake and Output 08/24/25 07:00 Intake Total 600 ml Output Total 850 ml Balance -250 ml Intake Oral 600 ml Output Urine Total 850 ml General Appearance: Alert, Oriented X3, Cooperative, mild distress HEENT: Atraumatic, PERRLA Lungs: Clear to auscultation, Normal air movement Cardiovascular: Normal S1, Normal S2 Abdomen: Normal bowel sounds, Soft, No tenderness, No hepatospenomegaly, No masses Musculoskeletal: Normal sensory function, Normal motor function Neuro: Normal gait, Normal speech, Cranial nerves 3-12 NL Skin: Dry, Intact Psych/Mental Status: Mental status NL, Mood NL Medications Current Medications Medications Dose Ordered Sig/Atilio Route Start Time Stop Time Status Last Admin Dose Admin Aspirin 81 mg DAILY PO 08/20/25 10:00 08/24/25 10:02 81 MG Atorvastatin Calcium 10 mg HS PO 08/19/25 22:00 08/23/25 21:36 10 MG Acetaminophen/ Hydrocodone Bitart 1 tab Q4HP PRN PO 08/19/25 12:15 08/24/25 10:48 1 TAB Ondansetron HCl 4 mg Q4HP PRN IV 08/19/25 12:15 Docusate Sodium 100 mg BIDPRN PRN PO 08/19/25 12:15 Acetaminophen 650 mg Q6HP PRN PO 08/19/25 12:15 Nitroglycerin 0.4 mg Q5MINP PRN SL 08/19/25 12:45 Morphine Sulfate 2 mg Q30M PRN IV 08/19/25 12:45 Albuterol 2.5 mg Q6HWA [facility] 08/20/25 18:00 08/24/25 05:58 2.5 MG Ipratropium [place] 0.5 mg Q6HWA [facility] 08/20/25 18:00 08/24/25 05:58 0.5 MG Enteral Nutritional Formula 240 ml BIDWM PO 08/21/25 12:00 08/24/25 08:00 240 ML Ertapenem 1 gm DAILY IV 08/24/25 10:00 Cancel Meropenem 50 ml @ 17 mls/hr Q8HR IV 08/24/25 14:00 Cefepime HCl 50 ml @ 12.5 mls/hr Q12H IV 08/24/25 11:15 Cancel Cefepime HCl 50 ml @ 12.5 mls/hr Q12H IV 08/24/25 18:00 Laboratory Results Laboratory Tests 08/23/25 06:30 08/24/25 09:43 Chemistry Test 08/24/25 09:43 Albumin 2.3 g/dL (3.2-4.8) L Calcium Level 8.5 mg/dL (8.7-10.4) L Total Protein 4.0 g/dL (5.7-8.2) L LFT Test 08/24/25 09:43 Alanine Aminotransferase (ALT) < 9 U/L (7-40) Alkaline Phosphatase 69 U/L (46-116) Aspartate Amino Transferase (AST) 13 U/L (13-40) Total Bilirubin 0.3 mg/dL (0.2-1.0) Urinalysis Test 08/19/25 10:00 Urine Color Colorless (Yellow) Urine Clarity Turbid (Clear) H Urine pH 7.0 (5.0-9.0) Urine Specific [place] 1.008 (1.001-1.035) Urine Protein Negative (Negative) Urine Ketones 1+ (Negative) H Urine Blood Trace /uL (Negative) H Urine Nitrite Negative (Negative) Urine Bilirubin Negative (Negative) Urine Urobilinogen Normal mg/dL (Negative) Urine Leukocyte Esterase 2+ /uL (Negative) Urine RBC 9 /hpf (0 - 4) Urine Microscopic WBC 32 /HPF (0-5) H Urine Squamous Epithelial Cells None seen /hpf (<5) Urine Bacteria Few /hpf (None Seen) H Urine Mucus Few (None Seen) Urine Glucose Normal mg/dL (Normal) Microbiology Microbiology Date/Time Source Procedure Growth Status 08/19/25 10:18 Blood Blood Culture - Final NO GROWTH AFTER 5 DAYS OF INCUBATION. Complete 08/19/25 10:00 Voided Urine Urine Culture - Final Klebsiella pneumoniae - ESBL Complete Labs and/or images reviewed: Labs reviewed by me, Image(s) reviewed by me Assessment/Plan Assessment/Plan Impression: -sepsis -community-acquired pneumonia, right lower lobe -probable hypercarbic respiratory failure -metabolic encephalopathy -complicated cystitis : ESBL -hypokalemia -COPD without exacerbation Plan: Events: No events overnight. Patient was respiratory status improved. -change antibiotic therapy to Meropenem -potassium replacement: 60 mEq use IV -bronchodilators -Pulmicort -midline placement -repeat labs and chest x-ray in a.m. Total time spent with patient discussing and formulating plan of care: 35 minutes. This medical document was created using an electronic medical record system with [employer] dictation system. Although this document has been carefully reviewed, there may still be some phonetic and typographical errors. These areas are purely typographical due to imperfections of the software programs, and do not reflect any compromise in the patient's medical care. Plan discussed with: Patient, Son, Other (RN) My Orders Orders - YULIA WEBB [employer] Procedure Category Date Status Time Meropenem 1gm Ivpb PHA 08/24/25 In Process (Merrem 1gm/50ml) 14:00 Cefepime 1gm/50ml PHA 08/24/25 In Process (Maxipime 1gm/50ml) 18:00 Potassium Chl PHA 12/8/25 Logged 20meq/100ml 11:30 Insert Midline ORDERS 08/24/25 Transmitted 11:16 Complete Blood Count LAB 08/24/25 Transmitted 11:19 Chest Xray 1 View XY 08/24/25 Verified 11:21 Date of Service: Aug 24, 2025 Billing Provider: YULIA WEBB NP Common Visit Codes: [id number] INP/OBS CARE(HIGH) YULIA WEBB NP Aug 24, 2025 11:23
[2025-08-24] MEDS: POTASSIUM CHL 20MEQ/100ML 100 ML IV SCH (12:45)
[2025-08-24 13:26] LABS: Hematocrit 33.8 % (36.0-46.0); Hemoglobin 11.0 g/dL (12.2-16.2); Mean Corpuscular Hemoglobin 28.0 pg (28.0-32.0); Mean Corpuscular Volume 86.3 fL (80.0-100.0)
--- NOTE | 2025-08-24 13:41 | DVH ---
CHEST RADIOGRAPH Indication: Right lower lobe pneumonia Technique: Single frontal view of the chest was obtained Comparison: XY CHEST PORTABLE on DOS: 08/22/25, XY CHEST PORTABLE on DOS: 08/21/25, XY CHEST PORTABLE on DOS: 08/19/25 FINDINGS: Lines and Tubes: Right IJ approach central venous catheter terminating over the superior cavoatrial junction. Hyperinflation of the lungs with diffuse interstitial prominence. Relatively unchanged right mid and lower lung zone opacity with obscuration of the right hemidiaphragm. Interval indistinctness of the left hemidiaphragm. Coil like material overlying the right mid and lower lung zone which are most likely external to the patient. No pneumothorax. Cardiomediastinal contours: Unremarkable. Aortic valvular replacement. Midline sternotomy wires are noted. Bones: No acute osseous abnormality. IMPRESSION: Relatively unchanged Right-sided pleural effusion with associated pneumonia/atelectasis. Interval development of indistinctness of the left hemidiaphragm which may be from pleural effusion with associated atelectasis/pneumonia.
[2025-08-24] MEDS ORDERED: MEROPENEM 1GM IVPB 50 ML IV SCH (14:00)
[2025-08-24 14:22] LABS: Total Cells Counted 100.0 (100)
[2025-08-24] MEDS: MEROPENEM 1GM IVPB 50 ML IV SCH (15:05)
[2025-08-24] MEDS: MELATONIN 5 MG TAB PO ONE (21:22)
[2025-08-25] VITALS (15 sets, daily range): BP systolic 105–134; BP diastolic 58–83; PULSE 86–114; RESP 16–18; TEMP 97.9–98.7; O2SAT 90–99
[2025-08-25] MEDS ORDERED: VANCOMYCIN PER PHARMACY 0 MG IV SCH (08:45)
[2025-08-25] MEDS ORDERED: ERTAPENEM SOD INJ 1 GM in SODIUM CHL 0.9% 50 ML IV SCH (10:00)
[2025-08-25] MEDS: LEVALBUTEROL HCL 1.25 MG/3 ML NEB NEB SCH (12:01)
--- NOTE | 2025-08-25 12:36 | DVHPN2 ---
Subjective Patient denies any symptoms at this time Reviewed: Care Plan, H&P, Labs, Medications Changes from previous H/P or p: No Changes General: Per HPI Eyes: No Pain, No Vision change, No Conjunctivae inflammation, No Eyelid inflammation, No Other, No Redness ENT: No Ear pain, No Ear discharge, No Nose pain, No Nose discharge, No Nose congestion, No Mouth pain, No Mouth swelling, No Throat pain, No Throat swelling, No Other Cardiovascular: No Chest Pain, No Palpitations, No Orthopnea, No Paroxysmal Noc. Dyspnea, No Edema, No Lt Headedness, No Other Respiratory: No Cough, No Dry, No Shortness of breath, No SOB with excertion, No Wheezing, No Hemoptysis, No Pleuritic Pain, No Sputum, No Other Gastrointestinal: No Nausea, No Vomiting, No Abdominal Pain, No Diarrhea, No Constipation, No Melena, No Hematochezia, No Other Genitourinary: Other Musculoskeletal: No other, No neck pain, No shoulder pain, No arm pain, No back pain, No hand pain, No leg pain, No foot pain Skin: Other Objective Vitals Vital Signs Date Time Temp Pulse Resp B/P (MAP) Pulse Ox O2 Delivery O2 Flow Rate FiO2 08/25/25 12: 99 Nasal Cannula 2.0 08/25/25 12:01 109 16 08/25/25 12:01 28 08/25/25 08:55 98.0 121/82 (95) 98.0 Intake/Output Intake and Output 08/25/25 07:00 Intake Total 1360 ml Output Total 1000 ml Balance 360 ml Intake Oral 1060 ml IV Total 300 ml Output Urine Total 1000 ml General Appearance: Alert, Oriented X3, Cooperative, mild distress HEENT: Atraumatic, PERRLA Lungs: Clear to auscultation, Normal air movement Cardiovascular: Normal S1, Normal S2 Abdomen: Normal bowel sounds, Soft, No tenderness, No hepatospenomegaly, No masses Musculoskeletal: Normal sensory function, Normal motor function Neuro: Normal gait, Normal speech, Cranial nerves 3-12 NL Skin: Dry, Intact Psych/Mental Status: Mental status NL, Mood NL Medications Current Medications Medications Dose Ordered Sig/Atilio Route Start Time Stop Time Status Last Admin Dose Admin Aspirin 81 mg DAILY PO 08/20/25 10:00 08/25/25 10:10 81 MG Atorvastatin Calcium 10 mg HS PO 08/19/25 22:00 08/24/25 21:22 10 MG Acetaminophen/ Hydrocodone Bitart 1 tab Q4HP PRN PO 08/19/25 12:15 08/25/25 10:11 1 TAB Ondansetron HCl 4 mg Q4HP PRN IV 08/19/25 12:15 Docusate Sodium 100 mg BIDPRN PRN PO 08/19/25 12:15 Acetaminophen 650 mg Q6HP PRN PO 08/19/25 12:15 Nitroglycerin 0.4 mg Q5MINP PRN SL 08/19/25 12:45 Morphine Sulfate 2 mg Q30M PRN IV 08/19/25 12:45 Ipratropium [place] 0.5 mg Q6HWA [facility] 08/20/25 18:00 08/25/25 12:00 0.5 MG Enteral Nutritional Formula 240 ml BIDWM PO 08/21/25 12:00 08/25/25 10:10 240 ML Ertapenem 1 gm DAILY IV 08/24/25 10:00 Cancel Cefepime HCl 50 ml @ 12.5 mls/hr Q12H IV 08/24/25 11:15 Cancel Meropenem 50 ml @ 17 mls/hr Q12H IV 08/24/25 13:00 08/25/25 03:02 17 MLS/HR Vancomycin HCl 0 ml @ 0 mls/hr PER PHARMACY IV 08/25/25 08:45 Levalbuterol HCl 1.25 mg Q6HWA [facility] 08/25/25 12:00 08/25/25 12:01 1.25 MG Laboratory Results Laboratory Tests 08/24/25 12:40 Chemistry Test 08/25/25 11:24 Calcium Level Pending Urinalysis Test 08/19/25 10:00 Urine Color Colorless (Yellow) Urine Clarity Turbid (Clear) H Urine pH 7.0 (5.0-9.0) Urine Specific [place] 1.008 (1.001-1.035) Urine Protein Negative (Negative) Urine Ketones 1+ (Negative) H Urine Blood Trace /uL (Negative) H Urine Nitrite Negative (Negative) Urine Bilirubin Negative (Negative) Urine Urobilinogen Normal mg/dL (Negative) Urine Leukocyte Esterase 2+ /uL (Negative) Urine RBC 9 /hpf (0 - 4) Urine Microscopic WBC 32 /HPF (0-5) H Urine Squamous Epithelial Cells None seen /hpf (<5) Urine Bacteria Few /hpf (None Seen) H Urine Mucus Few (None Seen) Urine Glucose Normal mg/dL (Normal) Microbiology Microbiology Date/Time Source Procedure Growth Status 08/19/25 10:18 Blood Blood Culture - Final NO GROWTH AFTER 5 DAYS OF INCUBATION. Complete 08/19/25 10:00 Voided Urine Urine Culture - Final Klebsiella pneumoniae - ESBL Complete Labs and/or images reviewed: Labs reviewed by me, Image(s) reviewed by me Assessment/Plan Assessment/Plan Impression: -sepsis -community-acquired pneumonia, right lower lobe -probable hypercarbic respiratory failure -metabolic encephalopathy -complicated cystitis : ESBL -hypokalemia -COPD without exacerbation Plan: Events: No events overnight. Increase in white blood cell count. Patient reports anxiety at this time. -continue Meropenem, add vancomycin -prn Xanax -bronchodilators -midline placed. Remove central line -Pulmicort -repeat labs and chest x-ray in a.m. Total time spent with patient discussing and formulating plan of care: 35 minutes. This medical document was created using an electronic medical record system with [employer] dictation system. Although this document has been carefully reviewed, there may still be some phonetic and typographical errors. These areas are purely typographical due to imperfections of the software programs, and do not reflect any compromise in the patient's medical care. Plan discussed with: Patient, Other (RN) My Orders Orders - YULIA WEBB [employer] Procedure Category Date Status Time Meropenem 1gm Ivpb PHA 08/24/25 In Process (Merrem 1gm/50ml) 13:00 Respiratory Culture HANSEL 08/25/25 Logged W/ Gs 08:34 Vancomycin Per PHA 08/25/25 In Process Pharmacy 08:45 Levalbuterol Hcl PHA 08/25/25 In Process (Xopenex Medneb) 12:00 Pt Request For Service PT 08/25/25 Logged 08:34 Basic Metabolic Panel LAB 08/25/25 In Process 12:28 Communication Order ORDERS 08/25/25 Transmitted 12:32 Alprazolam Tablet PHA 08/25/25 Transmitted (Xanax Tablet) 12:45 Melatonin (Melatonin) PHA 08/25/25 Transmitted 22:00 Date of Service: Aug 25, 2025 Billing Provider: YULIA WEBB NP Common Visit Codes: [id number] INP/OBS CARE(HIGH) YULIA WEBB NP Aug 25, 2025 12:35
[2025-08-25 12:39] LABS: Potassium 3.9 mmol/L (3.5-5.1)
[2025-08-25 12:40] LABS: Anion Gap 9 (5-15)
[2025-08-25 12:41] LABS: Calcium 8.2 mg/dL (8.7-10.4); Carbon Dioxide 32 mmol/L (20-31); Chloride 93 mmol/L (98-107); Sodium 134 mmol/L (136-145)
[2025-08-25 12:45] LABS: BUN/Creatinine Ratio 27.1 (10.0-20.0)
[2025-08-25 12:47] LABS: Blood Urea Nitrogen 26 mg/dL (9-23); Glucose 167 mg/dL (74-106)
[2025-08-25] MEDS: ALPRAZolam 0.25 MG TAB PO PRN (13:54)
[2025-08-25] MEDS: MELATONIN 5 MG TAB PO ONE (22:02)
[2025-08-26] VITALS (15 sets, daily range): BP systolic 101–107; BP diastolic 60–72; PULSE 83–115; RESP 16–19; TEMP 97.4–98.4; O2SAT 89–99
[2025-08-26] MEDS: DOCUSATE SOD 100 MG CAP PO PRN (09:36)
--- NOTE | 2025-08-26 10:01 | DVHPN2 ---
Subjective Patient denies any symptoms at this time Reviewed: Care Plan, H&P, Labs, Medications Changes from previous H/P or p: No Changes General: Per HPI Eyes: No Pain, No Vision change, No Conjunctivae inflammation, No Eyelid inflammation, No Other, No Redness ENT: No Ear pain, No Ear discharge, No Nose pain, No Nose discharge, No Nose congestion, No Mouth pain, No Mouth swelling, No Throat pain, No Throat swelling, No Other Cardiovascular: No Chest Pain, No Palpitations, No Orthopnea, No Paroxysmal Noc. Dyspnea, No Edema, No Lt Headedness, No Other Respiratory: No Cough, No Dry, No Shortness of breath, No SOB with excertion, No Wheezing, No Hemoptysis, No Pleuritic Pain, No Sputum, No Other Gastrointestinal: No Nausea, No Vomiting, No Abdominal Pain, No Diarrhea, No Constipation, No Melena, No Hematochezia, No Other Genitourinary: Other Musculoskeletal: No other, No neck pain, No shoulder pain, No arm pain, No back pain, No hand pain, No leg pain, No foot pain Skin: Other Objective Vitals Vital Signs Date Time Temp Pulse Resp B/P (MAP) Pulse Ox O2 Delivery O2 Flow Rate FiO2 08/26/25 08:29 98.2 102 19 107/72 (84) 95 98.2 08/26/25 08:00 Nasal Cannula* 3 32 Intake/Output Intake and Output 08/26/25 07:00 Intake Total 1130 ml Output Total 1150 ml Balance -20 ml Intake Oral 1080 ml IV Total 50 ml Output Urine Total 1150 ml General Appearance: Alert, Oriented X3, Cooperative, mild distress HEENT: Atraumatic, PERRLA Lungs: Clear to auscultation, Normal air movement Cardiovascular: Normal S1, Normal S2 Abdomen: Normal bowel sounds, Soft, No tenderness, No hepatospenomegaly, No masses Musculoskeletal: Normal sensory function, Normal motor function Neuro: Normal gait, Normal speech, Cranial nerves 3-12 NL Skin: Dry, Intact Psych/Mental Status: Mental status NL, Mood NL Medications Current Medications Medications Dose Ordered Sig/Atilio Route Start Time Stop Time Status Last Admin Dose Admin Aspirin 81 mg DAILY PO 08/20/25 10:00 08/26/25 09:36 81 MG Atorvastatin Calcium 10 mg HS PO 08/19/25 22:00 08/25/25 22:02 10 MG Acetaminophen/ Hydrocodone Bitart 1 tab Q4HP PRN PO 08/19/25 12:15 08/26/25 05:27 1 TAB Ondansetron HCl 4 mg Q4HP PRN IV 08/19/25 12:15 Docusate Sodium 100 mg BIDPRN PRN PO 08/19/25 12:15 08/26/25 09:36 100 MG Acetaminophen 650 mg Q6HP PRN PO 08/19/25 12:15 Nitroglycerin 0.4 mg Q5MINP PRN SL 08/19/25 12:45 Morphine Sulfate 2 mg Q30M PRN IV 08/19/25 12:45 Ipratropium [place] 0.5 mg Q6HWA [facility] 08/20/25 18:00 08/26/25 07:24 0.5 MG Enteral Nutritional Formula 240 ml BIDWM PO 08/21/25 12:00 08/26/25 09:35 240 ML Ertapenem 1 gm DAILY IV 08/24/25 10:00 Cancel Cefepime HCl 50 ml @ 12.5 mls/hr Q12H IV 08/24/25 11:15 Cancel Meropenem 50 ml @ 17 mls/hr Q12H IV 08/24/25 13:00 08/26/25 01:35 17 MLS/HR Vancomycin HCl 0 ml @ 0 mls/hr PER PHARMACY IV 08/25/25 08:45 Levalbuterol HCl 1.25 mg Q6HWA [facility] 08/25/25 12:00 08/26/25 07:24 1.25 MG Alprazolam 0.25 mg Q12HP PRN PO 08/25/25 12:45 08/26/25 09:36 0.25 MG Laboratory Results Laboratory Tests 08/24/25 12:40 08/25/25 11:24 08/26/25 05:11 Chemistry Test 08/25/25 11:24 Calcium Level 8.2 mg/dL (8.7-10.4) L Urinalysis Test 08/19/25 10:00 Urine Color Colorless (Yellow) Urine Clarity Turbid (Clear) H Urine pH 7.0 (5.0-9.0) Urine Specific [place] 1.008 (1.001-1.035) Urine Protein Negative (Negative) Urine Ketones 1+ (Negative) H Urine Blood Trace /uL (Negative) H Urine Nitrite Negative (Negative) Urine Bilirubin Negative (Negative) Urine Urobilinogen Normal mg/dL (Negative) Urine Leukocyte Esterase 2+ /uL (Negative) Urine RBC 9 /hpf (0 - 4) Urine Microscopic WBC 32 /HPF (0-5) H Urine Squamous Epithelial Cells None seen /hpf (<5) Urine Bacteria Few /hpf (None Seen) H Urine Mucus Few (None Seen) Urine Glucose Normal mg/dL (Normal) Microbiology Microbiology Date/Time Source Procedure Growth Status 08/19/25 10:18 Blood Blood Culture - Final NO GROWTH AFTER 5 DAYS OF INCUBATION. Complete 08/19/25 10:00 Voided Urine Urine Culture - Final Klebsiella pneumoniae - ESBL Complete Labs and/or images reviewed: Labs reviewed by me, Image(s) reviewed by me Assessment/Plan Assessment/Plan Impression: -sepsis -community-acquired pneumonia, right lower lobe -probable hypercarbic respiratory failure -metabolic encephalopathy -complicated cystitis : ESBL -hypokalemia -COPD without exacerbation Plan: Events: No events overnight. Patient removed left midline yesterday. Continues to have right IJ central line. Instructed primary nurse to have new midline place and remove central line. -continue Meropenem, add vancomycin -prn Xanax -bronchodilators -midline placed. Remove central line -Pulmicort -repeat labs and chest x-ray in a.m. Total time spent with patient discussing and formulating plan of care: 35 minutes. This medical document was created using an electronic medical record system with [employer] dictation system. Although this document has been carefully reviewed, there may still be some phonetic and typographical errors. These areas are purely typographical due to imperfections of the software programs, and do not reflect any compromise in the patient's medical care. Plan discussed with: Patient, Other (RN) My Orders Orders - YULIA WEBB [employer] TECHNICIAN Procedure Category Date Status Time Communication Order ORDERS 08/25/25 Transmitted 12:32 Alprazolam Tablet PHA 08/25/25 In Process (Xanax Tablet) 12:45 Vancomycin,Random LAB 08/26/25 Logged 05:00 Vancomycin Per LUIS ARMANDO 08/25/25 In Process Pharmacy Protoc 13:52 Complete Blood Count LAB 08/27/25 Verified 05:00 Complete Blood Count LAB 08/28/25 Verified 05:00 Complete Blood Count LAB 08/29/25 Verified 05:00 Basic Metabolic Panel LAB 08/27/25 Verified 05:00 Basic Metabolic Panel LAB 08/28/25 Verified 05:00 Basic Metabolic Panel LAB 08/29/25 Verified 05:00 Chest Xray 1 View XY 08/27/25 Logged 05:00 Chest Xray 1 View XY 08/28/25 Logged 05:00 Chest Xray 1 View XY 08/29/25 Logged 05:00 Date of Service: Aug 26, 2025 Billing Provider: YULIA WEBB NP Common Visit Codes: [id number] INP/OBS CARE(HIGH) YULIA WEBB NP Aug 26, 2025 10:00
[2025-08-27] VITALS (14 sets, daily range): BP systolic 104–133; BP diastolic 72–81; PULSE 99–114; RESP 16–22; TEMP 97.2–98.3; O2SAT 90–100
[2025-08-27 05:06] LABS: Anion Gap 8 (5-15); Hematocrit 32.3 % (36.0-46.0); Hemoglobin 10.6 g/dL (12.2-16.2); Mean Corpuscular Hemoglobin 27.7 pg (28.0-32.0); Mean Corpuscular Volume 84.7 fL (80.0-100.0)
[2025-08-27 05:11] LABS: BUN/Creatinine Ratio 40.4 (10.0-20.0); Glucose 79 mg/dL (74-106)
[2025-08-27 05:16] LABS: Blood Urea Nitrogen 36 mg/dL (9-23); Calcium 8.1 mg/dL (8.7-10.4); Carbon Dioxide 33 mmol/L (20-31); Chloride 94 mmol/L (98-107); Potassium 3.2 mmol/L (3.5-5.1); Sodium 135 mmol/L (136-145)
[2025-08-27 06:03] LABS: Total Cells Counted 100.0 (100)
--- NOTE | 2025-08-27 07:19 | DVH ---
CHEST RADIOGRAPH INDICATION: pna TECHNIQUE: Single frontal view of the chest was obtained COMPARISON: XY CHEST XRAY 1 VIEW on DOS: 08/24/25. FINDINGS: Lines and Tubes: Right central venous catheter has been removed. Lungs: Hazy right basilar opacity. Pleura: Right pleural effusion. No pneumothorax. Cardiomediastinal contours: Not enlarged. Bones: No acute osseous abnormality. IMPRESSION: 1. Right basilar opacity and right pleural effusion similar to prior study may reflect combination of atelectasis, consolidation and/or pleural effusion.
--- NOTE | 2025-08-27 10:34 | DVHPN2 ---
Subjective Patient denies any symptoms at this time Reviewed: Care Plan, H&P, Labs, Medications Changes from previous H/P or p: No Changes General: Per HPI Eyes: No Pain, No Vision change, No Conjunctivae inflammation, No Eyelid inflammation, No Other, No Redness ENT: No Ear pain, No Ear discharge, No Nose pain, No Nose discharge, No Nose congestion, No Mouth pain, No Mouth swelling, No Throat pain, No Throat swelling, No Other Cardiovascular: No Chest Pain, No Palpitations, No Orthopnea, No Paroxysmal Noc. Dyspnea, No Edema, No Lt Headedness, No Other Respiratory: No Cough, No Dry, No Shortness of breath, No SOB with excertion, No Wheezing, No Hemoptysis, No Pleuritic Pain, No Sputum, No Other Gastrointestinal: No Nausea, No Vomiting, No Abdominal Pain, No Diarrhea, No Constipation, No Melena, No Hematochezia, No Other Genitourinary: Other Musculoskeletal: No other, No neck pain, No shoulder pain, No arm pain, No back pain, No hand pain, No leg pain, No foot pain Skin: Other Objective Vitals Vital Signs Date Time Temp Pulse Resp B/P (MAP) Pulse Ox O2 Delivery O2 Flow Rate FiO2 08/27/25 09:38 99 Nasal Cannula 2.0 08/27/25 08:52 98.0 107 22 122/81 (95) 98.0 08/27/25 08:00 32 Intake/Output Intake and Output 08/27/25 07:00 Intake Total 1300 ml Output Total 1100 ml Balance 200 ml Intake Oral 1200 ml IV Total 100 ml Output Urine Total 1100 ml General Appearance: Alert, Oriented X3, Cooperative, mild distress HEENT: Atraumatic, PERRLA Lungs: Clear to auscultation, Normal air movement Cardiovascular: Normal S1, Normal S2 Abdomen: Normal bowel sounds, Soft, No tenderness, No hepatospenomegaly, No masses Musculoskeletal: Normal sensory function, Normal motor function Neuro: Normal gait, Normal speech, Cranial nerves 3-12 NL Skin: Dry, Intact Psych/Mental Status: Mental status NL, Mood NL Medications Current Medications Medications Dose Ordered Sig/Atilio Route Start Time Stop Time Status Last Admin Dose Admin Aspirin 81 mg DAILY PO 08/20/25 10:00 08/27/25 09:25 81 MG Atorvastatin Calcium 10 mg HS PO 08/19/25 22:00 08/26/25 21:58 10 MG Acetaminophen/ Hydrocodone Bitart 1 tab Q4HP PRN PO 08/19/25 12:15 08/27/25 09:41 1 TAB Ondansetron HCl 4 mg Q4HP PRN IV 08/19/25 12:15 Docusate Sodium 100 mg BIDPRN PRN PO 08/19/25 12:15 08/26/25 09:36 100 MG Acetaminophen 650 mg Q6HP PRN PO 08/19/25 12:15 Nitroglycerin 0.4 mg Q5MINP PRN SL 08/19/25 12:45 Morphine Sulfate 2 mg Q30M PRN IV 08/19/25 12:45 Ipratropium [place] 0.5 mg Q6HWA [facility] 08/20/25 18:00 08/27/25 06:35 0.5 MG Enteral Nutritional Formula 240 ml BIDWM PO 08/21/25 12:00 08/27/25 09:25 240 ML Ertapenem 1 gm DAILY IV 08/24/25 10:00 Cancel Cefepime HCl 50 ml @ 12.5 mls/hr Q12H IV 08/24/25 11:15 Cancel Meropenem 50 ml @ 17 mls/hr Q12H IV 08/24/25 13:00 08/27/25 00:55 17 MLS/HR Vancomycin HCl 0 ml @ 0 mls/hr PER PHARMACY IV 08/25/25 08:45 Levalbuterol HCl 1.25 mg Q6HWA [facility] 08/25/25 12:00 08/27/25 06:35 1.25 MG Alprazolam 0.25 mg Q12HP PRN PO 08/25/25 12:45 08/26/25 09:36 0.25 MG Laboratory Results Laboratory Tests 08/27/25 04:37 Chemistry Test 08/27/25 04:37 Calcium Level 8.1 mg/dL (8.7-10.4) L Urinalysis Test 08/19/25 10:00 Urine Color Colorless (Yellow) Urine Clarity Turbid (Clear) H Urine pH 7.0 (5.0-9.0) Urine Specific [place] 1.008 (1.001-1.035) Urine Protein Negative (Negative) Urine Ketones 1+ (Negative) H Urine Blood Trace /uL (Negative) H Urine Nitrite Negative (Negative) Urine Bilirubin Negative (Negative) Urine Urobilinogen Normal mg/dL (Negative) Urine Leukocyte Esterase 2+ /uL (Negative) Urine RBC 9 /hpf (0 - 4) Urine Microscopic WBC 32 /HPF (0-5) H Urine Squamous Epithelial Cells None seen /hpf (<5) Urine Bacteria Few /hpf (None Seen) H Urine Mucus Few (None Seen) Urine Glucose Normal mg/dL (Normal) Microbiology Microbiology Date/Time Source Procedure Growth Status 08/19/25 10:18 Blood Blood Culture - Final NO GROWTH AFTER 5 DAYS OF INCUBATION. Complete 08/19/25 10:00 Voided Urine Urine Culture - Final Klebsiella pneumoniae - ESBL Complete Labs and/or images reviewed: Labs reviewed by me, Image(s) reviewed by me Assessment/Plan Assessment/Plan Impression: -sepsis -community-acquired pneumonia, right lower lobe -probable hypercarbic respiratory failure -metabolic encephalopathy -complicated cystitis : ESBL -hypokalemia -COPD without exacerbation -acute delirium Plan: Events: No events overnight. Acute delirium resolving. Central line removed. New midline placed. -continue Meropenem, add vancomycin -prn Xanax -bronchodilators -Pulmicort -social service consultation for DC planning with IV antibiotics, DME -repeat labs and chest x-ray in a.m. -transfer to Medical/Surgical unit -plan of care discussed with the patient and son who were agreeable for discharge planning tomorrow. Total time spent with patient and family regarding advance care plannin minutes. Total time spent with patient discussing and formulating plan of care: 35 minutes. This medical document was created using an electronic medical record system with [employer] dictation system. Although this document has been carefully reviewed, there may still be some phonetic and typographical errors. These areas are purely typographical due to imperfections of the software programs, and do not reflect any compromise in the patient's medical care. Plan discussed with: Patient, Son, Other (RN) My Orders Orders - YULIA WEBB NP Procedure Category Date Status Time Transfer Orders XFER 08/27/25 Transmitted 09:09 Potassium Effervesent PHA 08/27/25 Verified Tab (Klor-Con/Ef) 10:30 C-Reactive Protein LAB 08/27/25 Verified 10:25 * Silver Solderer CONS 12/11/25 Verified Consult Date of Service: Aug 27, 2025 Billing Provider: YULIA WEBB NP Common Visit Codes: [id number] INP/OBS CARE(HIGH) Secondary Visit Codes: [id number] CARE PLAN 30 MINUTES YULIA WEBB NP Aug 27, 2025 10:34
[2025-08-27] MEDS: POTASSIUM EFFERVESENT TAB 25 MEQ PO ONE (12:33)
[2025-08-27] MEDS: VANCOMYCIN 500mg/100mL 100 ML IV SCH (17:25)
[2025-08-27] MEDS: ACETAMINOPHEN 325 MG TAB PO PRN (22:45)
[2025-08-28] VITALS (14 sets, daily range): BP systolic 98–109; BP diastolic 62–72; PULSE 92–114; RESP 17–18; TEMP 36.8; O2SAT 97–100
[2025-08-28] MEDS ORDERED: DOXY100C79 PO (08:55)
--- NOTE | 2025-08-28 09:00 | DVHDS2 ---
Discharge Summary Date of Admission Aug 19, 2025 at 12:41 Date of Discharge: Aug 28, 2025 Admitting Diagnosis Sepsis Labs/Diagnostic Data: Laboratory Results Test 08/27/25 04:37 08/26/25 09:54 08/24/25 09:43 08/23/25 06:30 White Blood Count 23.1 10^3/uL (4.4-10.8) Red Blood Count 3.82 10^6/uL (4.0-5.20) Hemoglobin 10.6 g/dL (12.2-16.2) Hematocrit 32.3 % (36.0-46.0) Mean Corpuscular Volume 84.7 fL (80.0-100.0) Mean Corpuscular Hemoglobin 27.7 pg (28.0-32.0) Mean Corpuscular Hemoglobin Concent 32.7 g/dL (32.0-36.0) Red Cell Distribution Width 14.5 % (11.8-14.3) Platelet Count 404 10^3/uL (140-450) Mean Platelet Volume 8.0 fL (6.9-10.8) Neutrophils (%) (Auto) % (37.0-80.0) Lymphocytes (%) (Auto) % (10.0-50.0) Monocytes (%) (Auto) % (0.0-12.0) Basophils (%) (Auto) % (0.0-2.0) Neutrophils # (Auto) 10 ^3/uL (1.6-8.6) Lymphocytes # (Auto) 10 ^3/uL (0.4-5.4) Monocytes # (Auto) 10 ^3/uL (0-1.3) Differential Total Cells Counted 100.0 (100) Neutrophils % (Manual) 77 (37.0-80.0) Band Neutrophils % (Manual) 3 Lymphocytes % (Manual) 6 (10.0-50.0) Monocytes % (Manual) 8 (0-12) Eosinophils % (Manual) 0 (0-7) Basophils % (Manual) 0 (0.0-2.0) Metamyelocytes % (manual) 0 Myelocytes % (Manual) 1 Promyelocytes % (Manual) 0 Blast Cells % (Manual) 0 Reactive Lymphocytes 5 Platelet Estimate Adequate Large Platelets Sodium Level 135 mmol/L (136-145) Potassium Level 3.2 mmol/L (3.5-5.1) Chloride Level 94 mmol/L (98-107) Carbon Dioxide Level 33 mmol/L (20-31) Anion Gap 8 (5-15) Blood Urea Nitrogen 36 mg/dL (9-23) Creatinine 0.89 mg/dL (0.550-1.02) Glomerular Filtration Rate Calc 73 mL/min (>90) BUN/Creatinine Ratio 40.4 (10.0-20.0) Serum Glucose 79 mg/dL (74-106) Calcium Level 8.1 mg/dL (8.7-10.4) C-Reactive Protein High Sensitivity 0.25 mg/dL (<1.0) Vancomycin Level Trough 13.6 ug/mL (5-10) Random Vancomycin Level 15.1 ug/mL (5-10) Total Bilirubin 0.3 mg/dL (0.2-1.0) Aspartate Amino Transferase (AST) 13 U/L (13-40) Alanine Aminotransferase (ALT) < 9 U/L (7-40) Alkaline Phosphatase 69 U/L (46-116) Total Protein 4.0 g/dL (5.7-8.2) Albumin 2.3 g/dL (3.2-4.8) Nucleated Red Blood Cells 1.0 % Test 08/21/25 06:52 08/20/25 14:34 08/20/25 05:50 08/19/25 12:50 Eosinophils (%) (Auto) 0.4 % (0.0-7.0) Eosinophils # (Auto) 0.1 10 ^3/uL (0-0.8) Basophils # (Auto) 0.1 10 ^3/uL (0-0.2) Magnesium Level 1.6 mg/dL (1.6-2.6) Blood Gas Specimen Type Arterial Blood Gas Sample Site Right radial Blood Gas Patient Temperature 37.0 Arterial Blood Date Drawn [id number] Arterial Blood pH 7.395 (7.350-7.450) Arterial Blood Partial Pressure CO2 62.9 mmHg (32.0-45.0) Arterial Blood Partial Pressure O2 86.1 mmHg (83.0-108.0) Arterial Blood HCO3 37.7 mmol/L (21.0-28.0) Arterial Blood Oxygen Saturation 96.2 % (94.0-98.0) Arterial Blood Base Excess 10.7 mmol/L (-2.0-3.0) Arterial Blood Oxyhemoglobin 95.3 % (94.0-98.0) Arterial Blood Carboxyhemoglobin 0.4 % (0.5-1.5) Arterial Blood Methemoglobin 0.5 % (0.0-1.5) Arterial Blood Deoxyhemoglobin 3.8 % (0.0-5.0) Gurmeet Test Yes Blood Gas Total Hemoglobin 11.60 g/dL (12.0-16.0) Blood Gas Liter Flow 3.00 Blood Gas Modality Nasal cannula FiO2 % 32.0 Blood Gas Critical Value Read Back Yes Blood Gas Notified Whom ruth Webb np Blood Gas Notified Time [id number] Blood Gas Notified By matteo Norris rt. Stomatocytes Few Troponin I High Sensitivity 21 ng/L (</=34) Test 08/19/25 10:00 08/19/25 09:30 Urine Color Colorless (Yellow) Urine Clarity Turbid (Clear) Urine pH 7.0 (5.0-9.0) Urine Specific [place] 1.008 (1.001-1.035) Urine Protein Negative (Negative) Urine Ketones 1+ (Negative) Urine Blood Trace /uL (Negative) Urine Nitrite Negative (Negative) Urine Bilirubin Negative (Negative) Urine Urobilinogen Normal mg/dL (Negative) Urine Leukocyte Esterase 2+ /uL (Negative) Urine RBC 9 /hpf (0 - 4) Urine Microscopic WBC 32 /HPF (0-5) Urine Squamous Epithelial Cells None seen /hpf (<5) Urine Bacteria Few /hpf (None Seen) Urine Mucus Few (None Seen) Urine Glucose Normal mg/dL (Normal) Poikilocytosis (manual) Slight Lactic Acid Level 0.7 mmol/L (0.4-2.0) Other Laboratory Tests 08/27/25 04:37 Brief Hx & Hospital Course: History of Present Illness The patient is a 64-year-old female DNR with past medical history of cancer and COPD who presented to [facility] ED for evaluation of altered level of consciousness. Patient was sent from home by son due to increased altered mental status than usual baseline for the past 12 hours. As reported by EMS, patient was in senior living for the past 2 weeks and was discharged to her son's home few days ago with Anaya catheter in place. Patient was seen and evaluated in the ED with weakness, sacral decubitus ulcer, laboratory data shows WBC 27.5, hemoglobin 11.8, hematocrit 36.1, platelets 485, sodium 138, potassium 3.6, BUN 6, creatinine 0.15, GFR 142, glucose 90, calcium 9.7, protein 5.3, albumin 3.0, troponin 17, lactic acid 0.7, blood pressure 123/83, heart rate 121 trending down to 98, temperature 98.6 F, O2 saturation 96% on oxygen. Chest x-ray revealing right and lower lung opacity, likely a combination of consolidation and pleural effusion, emphysema. Patient was started on IV antibiotic regimen Zosyn, please see medication orders section in the computer. On my assessment, patient denied chest pain, no headache, dizziness, diaphoresis, currently on oxygen, no diarrhea, nausea, vomiting, fever, no chills. Patient was admitted for further evaluation and medical management. Course of hospitalization: Patient was found to be severely encephalopathic for which BiPAP was ordered. ABG was ordered with noted compensated respiratory acidosis. Chest x-ray also significant for right lower lung pneumonia. Patient was also found to have ESBL Klebsiella pneumoniae in urine. Patient's Anaya catheter was exchanged from home catheter. Patient was started on Meropenem as well as vancomycin given recent hospitalization. Patient's clinical status improved. Long discussion was made with family and patient regarding discharge planning. Apparently, they do not want to go back on hospice services and requesting to have IV antibiotics at home, physical therapy as well as establishment of a hospital bed given hospice services retrieved with the nares. Patient has home O2. She will be continued with IV antibiotic therapy in the form of Invanz 1 g IV daily, for additional 10 days given Meropenem was started in the hospital. She will be also placed on doxycycline 100 mg p.o. b.i.d.. She is instructed to follow up with her PCP at next available appointment. All questions answered. Physical examination General: Alert and Oriented x3. No acute distress. Well-nourished. Cachexia Eyes: EOMI. Anicteric. HENT: Moist mucous membranes. Lungs: Clear to auscultation bilaterally. No accessory muscle use. Nasal cannula at 2 L/min Cardiovascular: Regular rate and rhythm. No murmur. No JVD. Abdomen: Soft, non-tender and non-distended. No palpable masses. Extremities: No edema. Non-tender. Skin: No rashes or lesions. Warm. Neurologic: No focal neurological deficits. CN II-XII grossly intact, but not individually tested. Psychiatric: Cooperative. Appropriate mood and affect. Total time spent with patient discussing and formulating plan of care: 35 minutes. This medical document was created using an electronic medical record system with Quaam dictation system. Although this document has been carefully reviewed, there may still be some phonetic and typographical errors. These areas are purely typographical due to imperfections of the software programs, and do not reflect any compromise in the patient's medical care. Condition at Discharge: Poor Final Diagnosis/Problems List Sepsis secondary to ESBL in the urine, and right lower lung pneumonia -community-acquired pneumonia, right lower lobe , probable Gram-positive/Gram-negative etiology -probable hypercarbic respiratory failure -acute on chronic hypoxic respiratory failure -metabolic encephalopathy -complicated cystitis : ESBL -hypokalemia -COPD without exacerbation -acute delirium Discharge Disposition: Home with Health Services Discharge Instruct/Medications Diet: Cardiac 2g Na,low cholest Activity: No Restrictions, As Tolerated Follow Up/Referral: Follow up with PCP in 1-2 weeks Medications: Invanz 1 g IV times 10 days Doxycycline 100 mg p.o. b.i.d. times 10 days Continue all home medications per medication reconciliation Scheduled Acetaminophen (Tylenol 8 Hour Arthritis), 650 MG PO TID Aspirin (Aspir-Low), 81 MG PO DAILY, (Reported) Doxycycline (Monohydrate) (Doxycycline), 100 MG PO BID Doxycycline (Monohydrate) (Doxycycline), 100 MG PO BID Methocarbamol (Methocarbamol), 750 MG PO BID Prednisone (Prednisone), 20 MG PO BID Miscellaneous Medications Atorvastatin Calcium (Atorvastatin Calcium), PO, (Reported) 36 Discharge Statement: "Patient was advised to return to the ER or call 911 if any headaches, dizziness, shortness of breath, chest pain, abdominal pain, bleeding, fevers, or worsening of medical condition. Patient was counseled about treatment plan, medications, possible side effects, patientverbalized understanding. All questions were answered to the best of my ability. This discharge took greater then 30 minutes in planning, reviewing documentation, counseling the patient, and discussing with other team members." DME: Diagnosis: Acute on Chronic Respiratory Failure ASSESSMENT ASSESSMENT Assessment Sepsis secondary to ESBL in the urine, and right lower lung pneumonia Date of Service: Aug 28, 2025 Billing Provider: YULIA WEBB NP Common Visit Codes: 65258-FSU/OBS DISCH DAY >30min YULIA WEBB NP Aug 28, 2025 09:00
[2025-08-28 11:09] LABS: Anion Gap 10 (5-15); Carbon Dioxide 29 mmol/L (20-31); Potassium 3.6 mmol/L (3.5-5.1)
[2025-08-28 11:12] LABS: Calcium 7.7 mg/dL (8.7-10.4); Chloride 95 mmol/L (98-107); Sodium 134 mmol/L (136-145)
[2025-08-28 11:16] LABS: BUN/Creatinine Ratio 36.3 (10.0-20.0)
[2025-08-28 11:17] LABS: Blood Urea Nitrogen 37 mg/dL (9-23); Glucose 161 mg/dL (74-106)
[2025-08-28] MEDS: ERTAPENEM SOD INJ 1 GM in SODIUM CHL 0.9% 50 ML IV SCH (11:43)
[2025-08-28 12:29] LABS: Hematocrit 31.5 % (36.0-46.0); Hemoglobin 10.1 g/dL (12.2-16.2); Mean Corpuscular Hemoglobin 28.3 pg (28.0-32.0); Mean Corpuscular Volume 88.4 fL (80.0-100.0)
[2025-08-28 12:47] LABS: RBC Morphology Normal; Total Cells Counted 100.0 (100)
== END 2025-08-28 20:20 | disposition home health service (06) | DRG 720 ==
LOC: ER 08:32 → EDBD 08:32 → OVERFLOW 12:41 → TELE-CENTR 16:00 → CENTRAL 08-27 23:00
PROVIDERS: ADMIT Nurse Practitioner Acute Care; ATTEND Nurse Practitioner Acute Care
PROC: 02HV33Z Insertion of Infusion Device into Superior Vena Cava, Percutaneous Approach (ICD-10-PCS; principal; 2025-08-19)
PROC: B548ZZA Ultrasonography of Superior Vena Cava, Guidance (ICD-10-PCS; 2025-08-19)
PROC: 05HA33Z Insertion of Infusion Device into Left Brachial Vein, Percutaneous Approach (ICD-10-PCS; 2025-08-24)
PROC: B54NZZA Ultrasonography of Left Upper Extremity Veins, Guidance (ICD-10-PCS; 2025-08-24)
PROC: 05HA33Z Insertion of Infusion Device into Left Brachial Vein, Percutaneous Approach (ICD-10-PCS; 2025-08-26)
PROC: B54NZZA Ultrasonography of Left Upper Extremity Veins, Guidance (ICD-10-PCS; 2025-08-26)
DX: A41.50 Gram-negative sepsis, unspecified (principal); J96.22 Acute and chronic respiratory failure with hypercapnia; J96.21 Acute and chronic respiratory failure with hypoxia; G93.41 Metabolic encephalopathy; J15.69 Pneumonia due to other Gram-negative bacteria; E87.29 Other acidosis; J44.0 Chronic obstructive pulmonary disease with (acute) lower respiratory infection; J15.9 Unspecified bacterial pneumonia; N30.90 Cystitis, unspecified without hematuria; Z66 Do not resuscitate; L89.152 Pressure ulcer of sacral region, stage 2; D75.839 Thrombocytosis, unspecified; Z16.12 Extended spectrum beta lactamase (ESBL) resistance; E87.6 Hypokalemia; Z99.81 Dependence on supplemental oxygen
CPT/HCPCS: 36415; 36556; 36600; 71045; 80048; 80053; 80202; 81001; 82565; 82805; 83605; 83735; 84484; 85007; 85025; 85027; 86141; 87040; 87086; 87088; 87186; 92610; 94640; 96365; 97110; 97163; 99291; 99292; G0378; J1335; J2003; J2185; J2543; J3480

== ENCOUNTER 2025-08-30 17:08 | Inpatient (IN) | payer MEDICAID ==
[~2025-08-30] VITALS: Ht 157.5 cm; Wt 47.6 kg
[2025-08-30] MEDS: VANCOMYCIN 1.5GM/250ML 250 ML IV ONE (03:00)
[~2025-08-30 17:08] MED LIST changes: +BUSP5TAB51 PO; +EMPA1TAB PO; +LISI2.5T47 PO; +MET25T PO; -PRED20TA2 PO; +SPIR25TA8 PO
--- NOTE | 2025-08-30 17:43 | ECG ---
[facility] Test Date: 2025-08-30 Test Time: 17:23:36 Pat Name: JODY JACK Department: ED Room: 0208 Gender: F Change Release Manager: abelino : 1960 Requested By: CELENA SANCHEZ Order Number: [id number] Reading MD: Randy Hawthorne Measurements Intervals [place] Rate: 109 P: 84 AR: 163 QRS: 12 QRSD: 84 T: 70 QT: 301 QTc: 406 Interpretive Statements Sinus tachycardia Left atrial enlargement Anteroseptal infarct, age indeterminate Baseline wander in lead(s) III,aVL Electronically Signed On 09-03-2025 17:15:58 PST by Randy Hawthorne Please click the below link to view image of tracing.
[2025-08-30] MEDS: MORPHINE SULFATE 4 MG/ML SYR/VIAL IV ONE (17:45)
[2025-08-30] MEDS: ONDANSETRON HCL 4 MG/2 ML VIAL IV ONE (17:45)
--- NOTE | 2025-08-30 18:11 | ED.PDOC ---
History of Present Illness HPI Comments 64-year-old female BIBA with prior medical history of with prior medical history of CHF, COPD(uses 3 L of home O2), asthma, cancer: Surgical history of aortic surgery, PICC line to the left arm and the chief complaint of shortness a breath. She reports on picking the patient up from home due from the patient having 30 minutes of shortness a breath. When EMS arrived on scene the patient was satting at 94% for which EMS bumped the patient's O2 up to 4 L in the patient felt better. EMS note that the patient was here two weeks ago for pneumonia and was given antibiotics and sent home. Denies any other symptoms at this time. Denies chills, fever, N/V/D, CP. No other associated symptoms, modifiers, recent injuries or sick contacts present at this time. Chief Complaint: Shortness of Breath Time Seen by MD: 17:30 Primary Care Provider: UNKNOWN Reviewed Notes: Nurses Notes, [employer] Member Notes, Medications, Allergies Allergies: Coded Allergies: NO KNOWN ALLERGIES (Unverified , 02/17/23) Home Meds Active Scripts Doxycycline (Monohydrate) (Doxycycline) 100 Mg Cap, 100 MG PO BID for 10 Days, #2 CAP Prov:YULIA WEBB NP 08/28/25 Doxycycline (Monohydrate) (Doxycycline) 100 Mg Cap, 100 MG PO BID for 7 Days, #14 CAP Prov:YULIA WEBB NP 09/05/23 Acetaminophen (Tylenol 8 Hour Arthritis) 650 Mg Tab, 650 MG PO TID, #30 TAB Prov:CAMILLE HERNANDEZ 02/17/23 Methocarbamol (Methocarbamol) 750 Mg Tab, 750 MG PO BID, #20 TAB Prov:CAMILLE HERNANDEZ 02/17/23 Reported Medications Aspirin (Aspir-Low) 81 Mg Tab, 81 MG PO DAILY for 30 Days, MG 09/05/24 Atorvastatin Calcium (ATORVASTATIN CALCIUM) 10 Mg Tab, PO 09/05/24 Discontinued Scripts Prednisone (Prednisone) 20 Mg Tab, 20 MG PO BID for 6 Days, #6 MG 10 mg twice a day x 3 days 10 mg once a day x 3 days Prov:YULIA WEBB NP 09/05/23 Information Source: Patient, Emergency Med Personnel Mode of Arrival: EMS Severity: Moderate Timing: Minutes Duration: Since onset, Minutes Prehospital treatment: None Past Medical History PAST MEDICAL HISTORY: Cancer, COPD (uses 3L of O2 at home) Surgical History: Unknown LEATHER HEEL BREASTER History: No Pertinent LEATHER HEEL BREASTER History Family History Family History: Reviewed,noncontributory to illness, Unknown Social History Smoker: Non-Smoker Alcohol: Denies ETOH Use Drugs: Denies Drug Use Lives In: Home Constitutional: denies: chills, diaphoresis, fatigue, fever, malaise, sweats, weakness, others EENTM: denies: blurred vision, double vision, ear bleeding, ear discharge, ear drainage, ear pain, ear ringing, eye pain, eye redness, hearing loss, mouth pain, mouth swelling, nasal discharge, nose bleeding, nose congestion, nose pain, photophobia, tearing, throat pain, throat swelling, voice changes, others Respiratory: reports: shortness of breath; denies: cough, hemoptysis, orthopnea, SOB at rest, SOB with excertion, stridor, wheezing, others Cardiovascular: denies: chest pain, dizzy spells, diaphoresis, Dyspnea on exertion, edema, irregular heart beat, left arm pain, lightheadedness, palpitations, PND, syncope, others Gastrointestinal: denies: abdomen distended, abdominal pain, blood streaked bowels, constipated, diarrhea, dysphagia, difficulty swallowing, hematemesis, melena, nausea, poor appetite, poor fluid intake, rectal bleeding, rectal pain, vomiting, others Genitourinary: denies: abnormal vagina bleeding, burning, dyspareunia, dysuria, flank pain, frequency, hematuria, incontinence, pain, , vagina discharge, urgency, others Neurological: denies: dizziness, fainting, headache, left sided numbness, left sided weakness, numbness, paresthesia, pre-existing deficit, right sided numbness, right sided weakness, seizure, speech problems, tingling, tremors, weakness, others Musculoskeletal: denies: back pain, gout, joint pain, joint swelling, muscle pain, muscle stiffness, neck pain, others Integumetry: denies: bruises, change in color, change in hair/nails, dryness, laceration, lesions, lumps, rash, wounds, others Allergic/Immunocompromised: denies: Difficulty Healing, Frequent Infections, Hives, Itching, others Hematologic/Lymphatic: denies: anemia, blood clots, easy bleeding, easy bruising, swollen glands, others Endocrine: denies: excessive hunger, excessive sweating, excessive thirst, excessive urination, flushing, intolerance to cold, intolerance to heat, unexplained weight gain, unexplained weight loss, others Psychiatric: denies: anxiety, bipolar disorder, depression, hopeless, panic disorder, schizophrenia, sleepless, suicidal, others All Other Systems: Reviewed and Negative Physical Exam Exam Comments Appears uncomfortable, irregular heart rate General Appearance: No Apparent Distress, Normal HEENT: Normal ENT Inspection, Pharynx Normal, TMs Normal Neck: Full Range of Motion, Non-Tender, Normal, Normal Inspection Respiratory: Chest Non-Tender, Lungs Clear, No Accessory Muscle Use, No Respiratory Distress, Normal Breath Sounds Cardiovascular: No Edema, No JVD, No Murmur, No Gallop, Normal Peripheral Pulses, Regular Rate/Rhythm Breast Exam: Deferred Gastrointestinal: No Organomegaly, Non Tender, No Pulsatile Mass, Normal Bowel Sounds, Soft Genitalia: Deferred Pelvic: Deferred Rectal: Deferred Extremities: No calf tenderness, Normal capillary refill, Normal inspection, Normal range of motion, Non-tender, No pedal edema Musculoskeletal : Apperance: Normal Neurologic: Alert, power saw operator II-XII nml as Tested, No Motor Deficits, Normal Affect, Normal Mood, No Sensory Deficits Cerebellar Function: Normal Reflexes: Normal Skin: Dry, Normal Color, Warm Lymphatic: No Adenopathy Was a procedure done? Was a procedure done?: No EKG EKG : Pulse Rate (adult): 109 [place]: Normal Cardiac Rhythm: ST Block: None Hypertrophy: None ST: Normal Differential Dx Considerations may include: Worsening cancer, COPD, ACS, viral syndrome, pneumonia X-Ray, Labs, Meds, VS Vital Signs Date Time Temp Pulse Resp B/P (MAP) Pulse Ox O2 Delivery O2 Flow Rate FiO2 08/30/25 18:30 98.0 109 26 142/93 (109) 97 98.0 08/30/25 18:10 109 08/30/25 17:23 109 08/30/25 17:20 Nasal Cannula* 3 32 08/30/25 17:16 98.3 102 19 125/88 97 98.3 Lab Test 08/30/25 19:15 08/30/25 18:30 Range/Units White Blood Count Pending Red Blood Count Pending Hemoglobin Pending Hematocrit Pending Mean Corpuscular Volume Pending Mean Corpuscular Hemoglobin Pending Mean Corpuscular Hemoglobin Concent Pending Red Cell Distribution Width Pending Platelet Count Pending Mean Platelet Volume Pending Neutrophils (%) (Auto) Pending Lymphocytes (%) (Auto) Pending Monocytes (%) (Auto) Pending Basophils (%) (Auto) Pending Neutrophils # (Auto) Pending Lymphocytes # (Auto) Pending Monocytes # (Auto) Pending Sodium Level Pending Potassium Level Pending Chloride Level Pending Carbon Dioxide Level Pending Anion Gap Pending Blood Urea Nitrogen Pending Creatinine Pending Glomerular Filtration Rate Calc Pending BUN/Creatinine Ratio Pending Serum Glucose Pending Lactic Acid Level Pending Calcium Level Pending Total Bilirubin Pending Aspartate Amino Transferase (AST) Pending Alanine Aminotransferase (ALT) Pending Alkaline Phosphatase Pending Troponin I High Sensitivity Pending B-Type Natriuretic Peptide Pending Total Protein Pending Albumin Pending Urine Color Light-yellow Yellow Urine Clarity Clear Clear Urine pH 6.0 5.0-9.0 Urine Specific [place] 1.009 1.001-1.035 Urine Protein 1+ H Negative Urine Ketones Negative Negative Urine Blood Negative Negative /uL Urine Nitrite Negative Negative Urine Bilirubin Negative Negative Urine Urobilinogen Normal Negative mg/dL Urine Leukocyte Esterase 1+ Negative /uL Urine RBC 5 0 - 4 /hpf Urine Microscopic WBC 12 H 0-5 /HPF Urine Squamous Epithelial Cells None seen <5 /hpf Urine Bacteria None seen None Seen /hpf Urine Yeast (Budding) Occasional None Seen /hpf Urine Glucose Normal Normal mg/dL Urine Test Negative Negative Time of 1ST Reevaluation: 18:00 Reevaluation 1ST: Unchanged Patient Education/Counseling: Diagnosis, Treatment, Prognosis Family Education/Counseling: No Family Present SEPSIS Sepsis Screen Date sepsis recognized/suspect: Aug 30, 2025 Time Sepsis recognized/suspect: 1718 Recent Procedure: No On Antibiotic Therapy: No Respiratory Rate >20: No Heart Rate >90: Yes Temp<36 C (96.8 F) or >38.3 C: No SBP <90 or MAP <65 mmHG: No New Acute Mental Status Change: No Is the patient on CPAP, BIPAP,: No Physician Orders B-Type Natriuretic Peptide (08/30/25 17:40) Complete Blood Count (08/30/25 17:40) Comprehensive Metabolic Panel (08/30/25 17:40) Lactic Acid W/ Reflex Order (08/30/25 17:40) Troponin-I Hs (08/30/25 17:40) Troponin-I Hs (08/30/25 18:40) Troponin-I Hs (08/30/25 20:40) Electrocardigram (08/30/25 18:40) Electrocardigram (08/30/25 20:40) Blood Culture (08/30/25 17:40) Wound Culture W/ Gs (08/30/25 18:19) Albuterol Medneb (Ventolin Medneb) (08/30/25 19:45) Ipratropium Medneb (Atrovent Medneb) (08/30/25 19:45) Vital Signs Date Time Temp Pulse Resp B/P (MAP) Pulse Ox O2 Delivery O2 Flow Rate FiO2 08/30/25 18:30 98.0 109 26 142/93 (109) 97 98.0 08/30/25 18:10 109 08/30/25 17:23 109 08/30/25 17:20 Nasal Cannula* 3 32 08/30/25 17:16 98.3 102 19 125/88 97 98.3 Laboratory Tests Test 08/30/25 19:15 Lactic Acid Level Pending White Blood Count Pending Departure 1 Departure Time of Disposition: 19:38 (Patient presented with acute shortness of breath concerning for acute on chronic COPD Exacerbation, Pneumonia, ACS, CHF, Pneumothorax. Less likely PE, Dissection. Data: 1. I ordered and reviewed the result of at least 3 labs including a CBC, BMP, and Troponin. 2. I independently interpreted the following tests: EKG shows sinus arrhythmiaRisk:This patient has a high risk of morbidity due to further diagnostic testing or treatment and may suffer from respiratory or cardiac etiology . Workup reveals a likely COPD Exacerbation and patient should be admitted for further workup. and possible expert consultation.) Impression: Primary Impression: Acute and chronic respiratory failure Additional Impressions: Cancer Shortness of breath Disposition: ADMITTED INPATIENT Admit to: Tele Condition: Guarded Critical Care Note Critical Care Time?: No Stability Stability form required: No I personally scribed for CELENA SANCHEZ MD ([email or web address]) on 08/30/25 at 18:10. Electronically submitted by Davion Farah ([email or web address]). CELENA SANCHEZ MD Aug 30, 2025 18:10
[2025-08-30] MEDS: hydrALAZINE HCL 20 MG/ML VL IV ONE (18:30)
[2025-08-30 19:23] LABS: Urine Budding Yeast OCCASIONAL /hpf (None Seen); Urine Protein, UAD 1+ (Negative)
[2025-08-30 19:40] LABS: Hematocrit 35.9 % (36.0-46.0); Hemoglobin 11.3 g/dL (12.2-16.2); Mean Corpuscular Hemoglobin 27.4 pg (28.0-32.0); Mean Corpuscular Volume 86.7 fL (80.0-100.0)
[2025-08-30 19:52] LABS: Alanine Aminotransferase 14 U/L (7-40); Alkaline Phosphatase 112 U/L (46-116); Anion Gap 8 (5-15); BUN/Creatinine Ratio 42.0 (10.0-20.0); Glucose 85 mg/dL (74-106); Potassium 3.5 mmol/L (3.5-5.1); Sodium 137 mmol/L (136-145)
[2025-08-30 19:56] LABS: Albumin 2.8 g/dL (3.2-4.8); Bilirubin, Total 0.2 mg/dL (0.2-1.0); Blood Urea Nitrogen 29 mg/dL (9-23); Calcium 8.7 mg/dL (8.7-10.4); Carbon Dioxide 32 mmol/L (20-31); Chloride 97 mmol/L (98-107); Total Protein 4.8 g/dL (5.7-8.2)
[2025-08-30] MEDS: IPRATROPIUM BROM 0.5 MG/2.5ML INH SOL NEB ONE (20:00)
[2025-08-30] MEDS: ALBUTEROL SULF 2.5 MG/0.5ML(0.5%) NEB SOLN NEB ONE (20:00)
[2025-08-30] MEDS: ALBUTEROL SULF 2.5 MG/0.5ML(0.5%) NEB SOLN ONE (20:01)
[2025-08-30] MEDS: IPRATROPIUM BROM 0.5 MG/2.5ML INH SOL ONE (20:01)
[2025-08-30 20:23] LABS: Anisocytosis Slight; Macrocytosis Slight; Smudge Cells 1 /100 WBC; Stomatocytes Few; Total Cells Counted 100.0 (100)
[2025-08-30] MEDS: OLANZapine 5 MG TAB PO ONE (21:35)
[2025-08-30] MEDS ORDERED: MORPHINE SULFATE INJ 2 MG/ml SYRG IV PRN (21:45)
[2025-08-30] MEDS ORDERED: VANCOMYCIN PER PHARMACY 0 MG IV SCH (21:45)
[2025-08-30 22:27] VITALS: BP 142/93; PULSE 107; RESP 18; TEMP 98; O2SAT 97
[2025-08-30] MEDS: MEROPENEM 1GM IVPB 50 ML IV SCH (22:38)
--- NOTE | 2025-08-30 23:40 | DVH ---
CHEST RADIOGRAPH INDICATION: copd TECHNIQUE: Single frontal view of the chest was obtained COMPARISON: XY CHEST XRAY 1 VIEW on DOS: 08/27/25, XY CHEST XRAY 1 VIEW on DOS: 08/24/25, XY CHEST PORTABLE on DOS: 08/22/25, XY CHEST PORTABLE on DOS: 08/21/25, XY CHEST PORTABLE on DOS: 08/19/25 FINDINGS: Lines and Tubes: None Lungs: Grossly stable appearing right basilar opacity consistent with airspace disease and probable small pleural effusion. No pneumothorax. Cardiomediastinal contours: Unremarkable status post median sternotomy. Bones: Unremarkable IMPRESSION: 1. Grossly stable appearing right basilar opacity consistent with airspace disease and probable small pleural effusion.
[2025-08-31] VITALS (14 sets, daily range): BP systolic 101–124; BP diastolic 65–80; PULSE 88–108; RESP 16–19; TEMP 97.1–97.8; O2SAT 92–100
[2025-08-31] MEDS: ACETAMINOPHEN 325 MG TAB PO SCH (01:00)
[2025-08-31 01:34] LABS: COVID19 ANTIGEN SOFIA FIA NEGATIVE (NEGATIVE)
--- NOTE | 2025-08-31 02:01 | DVHHPRES ---
History of Present Illness Resident Creating Document: AL OVIEDO RESIDENT History of Present Illness Patient is a 64 year old female with past medical history of CHF, COPD (uses 2 L oxygen at home), questionable lung cancer, asthma, muscular dystrophy, hyperlipidemia, hypertension , coronary artery disease ( status post PCI 1 stent in 2023), status post open heart surgery, who came to the hospital with chief complaints of worsening shortness of breath. She also reports of generalized weakness, pain and decreased oral intake. patient was recently hospitalized with pneumonia and complicated cystitis with ESBL In urine and was discharged with ertapenem to home. Patient denies fever, nausea, vomiting, or any recent bowel habit changes. Patient denies any sick contacts or recent injuries. surgical history: Hysterectomy, PCI status post 1 stent in 2023, open heart surgery family history: Reviewed, noncontributory Personal history: Ex-smoker (stopped smoking 10 years back), denies alcohol, drug use. Lives with: Family PCP Dr. Campbell home meds: aspirin 81 mg, atorvastatin 10 mg, lisinopril, spironolactone, Jardiance, buspirone, levalbuterol Patient seen and examined at the bedside. Patient is still complaining of shortness of breaths and generalized pain. Review of Systems Review of Systems General: patient denies fever, fatigue, weaknes, sweating, any recent changes in appetite and weight HEENT: No headaches, visiual changes, hearing loss, tinnitus, nasal congestion and discharge, and sore throat. Cardiovascular: Denies chest pain, palpitations, dyspnea on exertion, orthopnea, or claudication. Respiratory: No cough, and wheezing. Gastrointestinal: Denies nausea, vomiting, dysphagia, odynophagia, heartburn, abdominal pain, flatulence, bloating, diarrhea, constipation, change in stool, or blood in stool. Genitourinary: No dysuria, hematuria, discharge, frequency, urgency, nocturia, incontinence, and urinary retention. Endocrine: No heat or cold intolerance, polydipsia, polyuria, and polyphagia. Neurological: No dizziness, extremity weakness and numbness, tremors, gait disturbance, seizures, and memory impairment. Psychiatric: Denies depression, anxiety,or insomnia. Musculoskeletal: Denies neck pain, stiffness and swelling, back pain, muscle weakness, joint pain, stiffness, swelling, or limited range of motion. Skin: No rashes, itching, skin lesion, changes in hair, nail, skin texture and breast. Hematologic/Lymphatic: Denies easy bruising, bleeding tendencies, or lymph node enlargement. Constitutional: Yes: Weakness; No: Fever, Chills, Sweats, Malaise, Other Eyes: No: Pain, Vision change, Conjunctivae inflammation, Eyelid inflammation, Other, Redness ENT: No: Ear pain, Ear discharge, Nose pain, Nose discharge, Nose congestion, Mouth pain, Mouth swelling, Throat pain, Throat swelling, Other Respiratory: Shortness of breath; No: Cough, Dry, SOB with excertion, Wheezing, Hemoptysis, Pleuritic Pain, Sputum, Wheezing, Other Cardiovascular: No: Chest Pain, Palpitations, Orthopnea, Paroxysmal Noc. Dyspnea, Edema, Lt Headedness, Other Gastrointestinal: No: Nausea, Vomiting, Abdominal Pain, Diarrhea, Constipation, Melena, Hematochezia, Other Genitourinary: No Dysuria, No Frequency, No Incontinence, No Hematuria, No Retention, No Other Musculoskeletal: No: other, neck pain, shoulder pain, arm pain, back pain, hand pain, leg pain, foot pain Skin: No: Rash, Lesions, Jaundice, Bruising, Other Neurological: No: Weakness, Numbness, Incoordination, Change in speech, Confusion, Seizures, Other Allergies: Coded Allergies: NO KNOWN ALLERGIES (Unverified , 02/17/23) Medications Current Medications Medications Dose Ordered Sig/Atilio Route Start Time Stop Time Status Last Admin Dose Admin Vancomycin HCl 0 ml @ 0 mls/hr PER PHARMACY IV 08/30/25 21:45 UNV Meropenem 50 ml @ 17 mls/hr Q8HR IV 08/30/25 22:00 08/30/25 22:38 17 MLS/HR Albuterol 2.5 mg Q6HWA NEB 08/31/25 06:00 Ipratropium [place] 0.5 mg Q6HWA NEB 08/31/25 06:00 Acetaminophen 650 mg Q6HR PO 08/31/25 00:00 Acetaminophen/ Hydrocodone Bitart 1 tab Q6HP PRN PO 08/30/25 21:45 Morphine Sulfate 2 mg Q4HPRN PRN IV 08/30/25 21:45 Enoxaparin Sodium 40 mg DAILY SC 08/31/25 10:00 Exam Vital Signs Vital Signs Date Time Temp Pulse Resp B/P (MAP) Pulse Ox O2 Delivery O2 Flow Rate FiO2 08/31/25 01:13 97.8 108 16 124/80 (95) 100 97.8 08/30/25 22:27 3.0 32 08/30/25 20:00 Nasal Cannula* Exam General: Patient alert and oriented in person, place and time. Patient following commands. Cachectic HEENT: Normocephalic, atraumatic, moist mucous membranes Respiratory/pulmonary: bilateral crackles heard on auscultation Cardiovascular: Normal heart sounds S1 and S2 with no associated murmurs Abdomen: Abdomen nondistended, there is no pain to palpation in any of the abdominal quadrants, no palpable masses. Extremities: 1+ bilateral pitting edema Peripheral Pulses: 3+ Radial (R). 3+ Radial (L). 3+ Dorsalis pedis (R). 3+ Dorsalis pedis(L) Skin: No rashes or pruritus, there is no sacral edema present at this time. Neurological: Intact cranial nerves with no focal neurologic deficits Sepsis secondary to ESBL in the urine, and right lower lung pneumonia Labs/Xrays Labs Test 08/30/25 23:36 08/30/25 21:24 08/30/25 19:15 08/30/25 18:30 Range/Units Influenza Type A Antigen Negative Negative Influenza Type B Antigen Negative Negative SARS-CoV-2 Antigen (Rapid) Negative NEGATIVE Magnesium Level 1.5 L 1.6-2.6 mg/dL Troponin I High Sensitivity 17 </=34 ng/L White Blood Count 27.4 H 4.4-10.8 10^3/uL Red Blood Count 4.14 4.0-5.20 10^6/uL Hemoglobin 11.3 L 12.2-16.2 g/dL Hematocrit 35.9 #L 36.0-46.0 % Mean Corpuscular Volume 86.7 80.0-100.0 fL Mean Corpuscular Hemoglobin 27.4 L 28.0-32.0 pg Mean Corpuscular Hemoglobin Concent 31.6 L 32.0-36.0 g/dL Red Cell Distribution Width 14.8 H 11.8-14.3 % Platelet Count 603 H 140-450 10^3/uL Mean Platelet Volume 7.2 6.9-10.8 fL Neutrophils (%) (Auto) 37.0-80.0 % Lymphocytes (%) (Auto) 10.0-50.0 % Monocytes (%) (Auto) 0.0-12.0 % Eosinophils (%) (Auto) 0.0-7.0 % Basophils (%) (Auto) 0.0-2.0 % Neutrophils # (Auto) 1.6-8.6 10 ^3/uL Lymphocytes # (Auto) 0.4-5.4 10 ^3/uL Monocytes # (Auto) 0-1.3 10 ^3/uL Eosinophils # (Auto) 0-0.8 10 ^3/uL Basophils # (Auto) 0-0.2 10 ^3/uL Differential Total Cells Counted 100.0 100 Neutrophils % (Manual) 70 37.0-80.0 Band Neutrophils % (Manual) 6 Lymphocytes % (Manual) 4 L 10.0-50.0 Monocytes % (Manual) 12 0-12 Eosinophils % (Manual) 1 0-7 Basophils % (Manual) 0 0.0-2.0 Metamyelocytes % (manual) 5 Myelocytes % (Manual) 2 Promyelocytes % (Manual) 0 Blast Cells % (Manual) 0 Nucleated Red Blood Cells % Reactive Lymphocytes 0 Smudge Cells 1 /100 WBC Platelet Estimate Increa Large Platelets Few Anisocytosis (manual) Slight Microcytosis Slight Macrocytosis Slight Stomatocytes Few Sodium Level 137 136-145 mmol/L Potassium Level 3.5 3.5-5.1 mmol/L Chloride Level 97 L 98-107 mmol/L Carbon Dioxide Level 32 H 20-31 mmol/L Anion Gap 8 5-15 Blood Urea Nitrogen 29 H 9-23 mg/dL Creatinine 0.69 # 0.550-1.02 mg/dL Glomerular Filtration Rate Calc 98 >90 mL/min BUN/Creatinine Ratio 42.0 H 10.0-20.0 Serum Glucose 85 74-106 mg/dL Lactic Acid Level 0.9 0.4-2.0 mmol/L Calcium Level 8.7 8.7-10.4 mg/dL Total Bilirubin 0.2 0.2-1.0 mg/dL Aspartate Amino Transferase (AST) 27 13-40 U/L Alanine Aminotransferase (ALT) 14 7-40 U/L Alkaline Phosphatase 112 46-116 U/L B-Type Natriuretic Peptide 122.78 0-100 pg/mL Total Protein 4.8 L 5.7-8.2 g/dL Albumin 2.8 L 3.2-4.8 g/dL Urine Color Light-yellow Yellow Urine Clarity Clear Clear Urine pH 6.0 5.0-9.0 Urine Specific [place] 1.009 1.001-1.035 Urine Protein 1+ H Negative Urine Ketones Negative Negative Urine Blood Negative Negative /uL Urine Nitrite Negative Negative Urine Bilirubin Negative Negative Urine Urobilinogen Normal Negative mg/dL Urine Leukocyte Esterase 1+ Negative /uL Urine RBC 5 0 - 4 /hpf Urine Microscopic WBC 12 H 0-5 /HPF Urine Squamous Epithelial Cells None seen <5 /hpf Urine Bacteria None seen None Seen /hpf Urine Yeast (Budding) Occasional None Seen /hpf Urine Glucose Normal Normal mg/dL Urine Test Negative Negative SEPSIS Sepsis Screen Date sepsis recognized/suspect: Aug 30, 2025 Time Sepsis recognized/suspect: 1934 Recent Procedure: No On Antibiotic Therapy: Yes Respiratory Rate >20: No Heart Rate >90: Yes Temp<36 C (96.8 F) or >38.3 C: No SBP <90 or MAP <65 mmHG: No New Acute Mental Status Change: No Is the patient on CPAP, BIPAP,: No Physician Orders Ipratropium Medneb (Atrovent Medneb) (08/30/25 19:43) Admit (08/30/25 21:31) Oxygen By Nasal Cannula (08/30/25 21:31) Emergency Dysrhythmia Protocol (08/30/25 21:31) Rhythm Strips Once Every Shift (08/30/25 21:31) Stat Ekg For Chest Pain (08/30/25 21:31) Notify Md Of Changes From Base (08/30/25 21:31) Chest Xray 1 View (08/30/25 21:31) Mrsa Screen (08/30/25 21:31) Urine Bacterial Culture (08/30/25 21:31) Respiratory Culture W/ Gs (08/30/25 21:31) Comprehensive Metabolic Panel (08/31/25 04:00) Complete Blood Count (08/31/25 04:00) Vancomycin Per Pharmacy (08/30/25 21:45) Meropenem 1gm Ivpb (Merrem 1gm/50ml) (08/30/25 22:00) Albuterol Medneb (Ventolin Medneb) (08/31/25 06:00) Ipratropium Medneb (Atrovent Medneb) (08/31/25 06:00) Acetaminophen Tablet (Tylenol Tablet) (08/31/25 00:00) Hydrocodone-Acet 7.5/325mg Tab (Sidney 7. (08/30/25 21:45) Morphine Sulfate Injection (08/30/25 21:45) Wound Culture W/ Gs (08/30/25 22:53) * Wound Consult (08/30/25 ) Regular Diet (08/31/25 Breakfast) Enoxaparin Sodium (Lovenox) (08/31/25 10:00) Vital Signs Date Time Temp Pulse Resp B/P (MAP) Pulse Ox O2 Delivery O2 Flow Rate FiO2 08/31/25 01:13 97.8 108 16 124/80 (95) 100 97.8 08/30/25 23:00 99 14 147/89 (108) 98 08/30/25 22:27 98.0 107 18 142/93 97 3.0 32 98.0 08/30/25 20:00 18 98 Nasal Cannula* 3 32 08/30/25 19:45 Nasal Cannula* 3 32 08/30/25 19:21 98.6 110 14 149/86 (107) 98 98.6 08/30/25 18:30 98.0 109 26 142/93 (109) 97 98.0 08/30/25 18:10 109 Laboratory Tests Test 08/30/25 19:15 Lactic Acid Level 0.9 mmol/L (0.4-2.0) White Blood Count 27.4 10^3/uL (4.4-10.8) H Medications Medications Dose Ordered Sig/Atilio Route Start Time Stop Time Status Last Admin Dose Admin Albuterol 5 mg ONCE ONCE NEB 08/30/25 19:45 08/30/25 19:46 DC 08/30/25 20:00 5 MG Ipratropium [place] 0.5 mg ONCE ONCE NEB 08/30/25 19:45 08/30/25 19:46 DC 08/30/25 20:00 0.5 MG Meropenem 50 ml @ 17 mls/hr Q8HR IV 08/30/25 22:00 08/30/25 22:38 17 MLS/HR Olanzapine 15 mg ONCE ONCE PO 08/30/25 21:30 08/30/25 21:31 DC 08/30/25 21:35 15 MG Assessment/Plan Assessment/Plan Sepsis due to possible pneumonia/UTI Pneumonia likely due to Gram-positive/Gram-negative bacteria/viral Acute on chronic hypoxic respiratory failure, due to above Complicated UTI History of ESBL UTI History of COPD/asthma History of muscular dystrophy Hypertension Chest x-ray shows right lower zone infiltration Empiric antibiotic meropenem and vancomycin -albuterol, ipratropium med nebs -check MRSA nares, blood culture/sputum culture COVID, flu negative -continue home meds Stage 3-4 sacral wound present on admission Wound consult/wound culture Obesity BMI 34.3 -patient counseled on diet Failure to thrive Severe protein malnutrition/cachectic Moderate anemia, due to above Hypomagnesemia Repleted Possible lung cancer CT scan from 05/21/2025 shows, Large right lower lobe lobulated opacity favored to reflect an infectious / inflammatory etiology. Doubt malignancy given size and no definite right lower lobe pulmonary nodules appreciated on 09/08/2024. Muscular dystrophy Dyslipidemia coronary artery disease ( status post PCI 1 stent in 2023) Status post open heart surgery Cardiac diet PPI prophylaxis: Protonix DVT prophylaxis: Lovenox Code status: DNR/DNI Goals of care addressed with the patient for more than 31 minutes: Full code status Case discussed with Dr. Rodriguez , patient and nurse Plan discussed with: Patient My Orders Orders - AL OVIEDO RESIDENT Procedure Category Date Status Time Admit ADMIT 08/30/25 Transmitted 21:31 Oxygen By Nasal RT 08/30/25 Transmitted Cannula 21:31 Emergency Dysrhythmia LUIS ARMANDO 08/30/25 In Process Protocol 21:31 Rhythm Strips Once LUIS ARMANDO 08/30/25 In Process Every Shift 21:31 Stat Ekg For Chest LUIS ARMANDO 08/30/25 In Process Pain 21:31 Notify Of Changes LUIS ARMANDO 08/30/25 In Process From Base 21:31 Chest Xray 1 View XY 08/30/25 Resulted 21:31 Mrsa Screen HANSEL 08/30/25 In Process 21:31 Urine Bacterial HANSEL 08/30/25 In Process Culture 21:31 Respiratory Culture HANSEL 08/30/25 Logged W/ Gs 21:31 Comprehensive LAB 08/31/25 Logged Metabolic Panel 04:00 Complete Blood Count LAB 08/31/25 Logged 04:00 Vancomycin Per PHA 08/30/25 Pending Pharmacy 21:45 Meropenem 1gm Ivpb [facility] 08/30/25 In Process (Merrem 1gm/50ml) 22:00 Albuterol Medneb PHA 08/31/25 In Process (Ventolin Medneb) 06:00 Ipratropium Medneb PHA 08/31/25 In Process (Atrovent Medneb) 06:00 Acetaminophen Tablet PHA 08/31/25 In Process (Tylenol Tablet) 00:00 Hydrocodone-Acet PHA 08/30/25 In Process 7.5/325mg Tab (Sidney 21:45 Morphine Sulfate PHA 08/30/25 In Process Injection 21:45 * Wound Consult CONS 08/30/25 Transmitted Enoxaparin Sodium PHA 08/31/25 In Process (Lovenox) 10:00 Visit Coding STANDARD RES Billing Provider: JOHNNY RODRIGUEZ MD Date of Service if different f: Aug 30, 2025 Common Visit Codes: [id number] INP/OBS CARE (HIGH) Secondary Visit Codes: [id number] CARE PLAN 30 MINUTES AL OVIEDO RESIDENT Aug 31, 2025 02:01
[2025-08-31] MEDS: MAGNESIUM SULFATE 1GM/100ML 100 ML IV ONE (02:18)
[2025-08-31] MEDS: SODIUM CHLORIDE 0.9% 500 ML IV ONE (02:18)
[2025-08-31] MEDS: PANTOPRAZOLE 40 MG TAB PO SCH (05:15)
[2025-08-31] MEDS: IPRATROPIUM BROM 0.5 MG/2.5ML INH SOL NEB SCH (06:24)
[2025-08-31] MEDS: ALBUTEROL SULF 2.5 MG/0.5ML(0.5%) NEB SOLN NEB SCH (06:24)
[2025-08-31] MEDS: SODIUM CHLORIDE 0.9% 1,000 ML IV SCH (06:32)
[2025-08-31] MEDS: ENOXAPARIN SOD 40 MG/0.4 ML SYRINGE SC SCH (10:00)
--- NOTE | 2025-08-31 10:28 | DVHPN2 ---
Subjective Patient denies any symptoms Reviewed: Care Plan, H&P, Labs Changes from previous H/P or p: No Changes General: Per HPI Eyes: No Pain, No Vision change, No Conjunctivae inflammation, No Eyelid inflammation, No Other, No Redness ENT: No Ear pain, No Ear discharge, No Nose pain, No Nose discharge, No Nose congestion, No Mouth pain, No Mouth swelling, No Throat pain, No Throat swelling, No Other Cardiovascular: No Chest Pain, No Palpitations, No Orthopnea, No Paroxysmal Noc. Dyspnea, No Edema, No Lt Headedness, No Other Respiratory: No Cough, No Dry; Shortness of breath; No SOB with excertion, No Wheezing, No Hemoptysis, No Pleuritic Pain, No Sputum, No Other Gastrointestinal: No Nausea, No Vomiting, No Abdominal Pain, No Diarrhea, No Constipation, No Melena, No Hematochezia, No Other Genitourinary: No Dysuria, No Frequency, No Incontinence, No Hematuria, No Retention, No Other Musculoskeletal: No other, No neck pain, No shoulder pain, No arm pain, No back pain, No hand pain, No leg pain, No foot pain Skin: No Rash, No Lesions, No Jaundice, No Bruising, No Other Objective Vitals Vital Signs Date Time Temp Pulse Resp B/P (MAP) Pulse Ox O2 Delivery O2 Flow Rate FiO2 08/31/25 08:48 97.7 106 16 112/74 (87) 99 97.7 08/31/25 06:24 Nasal Cannula 4.0 08/31/25 06:24 36 Intake/Output Intake and Output 08/31/25 07:00 Intake Total 707 ml Output Total 1000 ml Balance -293 ml Intake Oral 340 ml IV Total 17 ml Other 350 ml Output Urine Total 1000 ml General Appearance: Alert, Oriented X3, Cooperative HEENT: Atraumatic, PERRLA Cardiovascular: Normal S1, Normal S2 Abdomen: Normal bowel sounds, Soft, No tenderness Musculoskeletal: Normal sensory function, Normal motor function Skin: Dry, Intact Psych/Mental Status: Mental status NL, Mood NL Medications Current Medications Medications Dose Ordered Sig/Atilio Route Start Time Stop Time Status Last Admin Dose Admin Vancomycin HCl 0 ml @ 0 mls/hr PER PHARMACY IV 08/30/25 21:45 Meropenem 50 ml @ 17 mls/hr Q8HR IV 08/30/25 22:00 08/31/25 05:30 17 MLS/HR Albuterol 2.5 mg Q6HWA [facility] 08/31/25 06:00 08/31/25 06:24 2.5 MG Ipratropium [place] 0.5 mg Q6HWA NEB 08/31/25 06:00 08/31/25 06:24 0.5 MG Acetaminophen 650 mg Q6HR PO 08/31/25 00:00 08/31/25 01:00 650 MG Acetaminophen/ Hydrocodone Bitart 1 tab Q6HP PRN PO 08/30/25 21:45 Morphine Sulfate 2 mg Q4HPRN PRN IV 08/30/25 21:45 Enoxaparin Sodium 40 mg DAILY SC 08/31/25 10:00 Pantoprazole Sodium 40 mg DAILY@0600 PO 08/31/25 06:00 Laboratory Results Laboratory Tests 08/30/25 19:15 Chemistry Test 08/30/25 19:15 08/30/25 21:24 Albumin 2.8 g/dL (3.2-4.8) L Calcium Level 8.7 mg/dL (8.7-10.4) Total Protein 4.8 g/dL (5.7-8.2) L Magnesium Level 1.5 mg/dL (1.6-2.6) L Cardiac Markers Test 08/30/25 19:15 B-Type Natriuretic Peptide 122.78 pg/mL (0-100) LFT Test 08/30/25 19:15 Alanine Aminotransferase (ALT) 14 U/L (7-40) Alkaline Phosphatase 112 U/L (46-116) Aspartate Amino Transferase (AST) 27 U/L (13-40) Total Bilirubin 0.2 mg/dL (0.2-1.0) Urinalysis Test 08/30/25 18:30 Urine Color Light-yellow (Yellow) Urine Clarity Clear (Clear) Urine pH 6.0 (5.0-9.0) Urine Specific [place] 1.009 (1.001-1.035) Urine Protein 1+ (Negative) H Urine Ketones Negative (Negative) Urine Blood Negative /uL (Negative) Urine Nitrite Negative (Negative) Urine Bilirubin Negative (Negative) Urine Urobilinogen Normal mg/dL (Negative) Urine Leukocyte Esterase 1+ /uL (Negative) Urine RBC 5 /hpf (0 - 4) Urine Microscopic WBC 12 /HPF (0-5) H Urine Squamous Epithelial Cells None seen /hpf (<5) Urine Bacteria None seen /hpf (None Seen) Urine Yeast (Budding) Occasional /hpf (None Urine Glucose Normal mg/dL (Normal) Urine Test Negative (Negative) Labs and/or images reviewed: Labs reviewed by me, Image(s) reviewed by me Assessment/Plan Assessment/Plan Impression: -acute on chronic respiratory failure -COPD with exacerbation -right lower lobe pneumonia -? 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 This medical document was created using an electronic medical record system with dscout dictation system. Although this document has been carefully reviewed, there may still be some phonetic and typographical errors. These areas are purely typographical due to imperfections of the software programs, and do not reflect any compromise in the patient's medical care. Plan discussed with: Patient, Other (RN) My Orders Orders - YULIA WEBB NP Procedure Category Date Status Time Chest Without Contrast CT 08/31/25 Logged 10:20 Date of Service: Aug 31, 2025 Billing Provider: YULIA WEBB NP Common Visit Codes: [id number] INP/OBS CARE(HIGH) YULIA WEBB NP Aug 31, 2025 10:28
[2025-08-31] MEDS: HYDROcodone-ACET 7.5/325MG TAB PO PRN (10:50)
--- NOTE | 2025-08-31 13:18 | DVHSR ---
APPROVED REPORT EXAM: Two-dimensional and M-mode echocardiogram with Doppler and color Doppler. Blood Pressure: 124/80 mmHg INDICATION Heart Failure RISK FACTORS Height: 5'2", Weight: 107 DIMENSIONS LVDd 4.1 (3.8-5.7cm) LA (2D) 3.9 (1.9-4.0cm) Aortic Root (2.0-3.7cm) LVDs 2.2 (2.5-4.0cm) LA (MM) (1.9-4.0cm) Aortic Cusp Exc (1.5-2.0cm) EF (%) 77.0 (55-70%) Rt. Atrium 3.8 (1.9-4.0cm) Asc. Aorta cm IVSd 0.6 (0.7-1.1cm) RV (D) (1.8-2.4cm) PWd 0.6 (0.7-1.1cm) Mitral Valve Mitral Mitral Stenosis E wave 0.99m/s MV Mean GR. mmHg A wave 0.98m/s MV Peak GR. mmHg E/A ratio 1.0 2D MVA cm2 DECEL Time 177ms PRESS 1/2 Time ms Aortic Valve Aortic Valve Aortic Stenosis V1 0.94m/s AO Mean GR. 14mmHg V2 2.45m/s AO Peak GR. 24mmHg LVOT Diameter 2.0 (1.8-2.4cm) Doppler CHANA 1.20cm2 Other Information Quality : Technically Limited Rhythm : Technically limited study due to body habitus. Conclusion lvef 60% borderline lvh mild aortic stenosis
[2025-08-31] MEDS: FUROSEMIDE 20 MG/2 ML VIAL IV ONE (16:21)
[2025-08-31] MEDS: VANCOMYCIN 750MG KIT 100 ML IV SCH (20:42)
[2025-09-01] VITALS (13 sets, daily range): BP systolic 100–140; BP diastolic 59–75; PULSE 64–101; RESP 16–18; TEMP 97.3–97.8; O2SAT 94–100
[2025-09-01] MEDS: FUROSEMIDE 20 MG/2 ML VIAL IV SCH (10:08)
--- NOTE | 2025-09-01 10:58 | DVHPN2 ---
Subjective Patient denies any symptoms Reviewed: Care Plan, H&P, Labs Changes from previous H/P or p: No Changes General: Per HPI Eyes: No Pain, No Vision change, No Conjunctivae inflammation, No Eyelid inflammation, No Other, No Redness ENT: No Ear pain, No Ear discharge, No Nose pain, No Nose discharge, No Nose congestion, No Mouth pain, No Mouth swelling, No Throat pain, No Throat swelling, No Other Cardiovascular: No Chest Pain, No Palpitations, No Orthopnea, No Paroxysmal Noc. Dyspnea, No Edema, No Lt Headedness, No Other Respiratory: No Cough, No Dry; Shortness of breath; No SOB with excertion, No Wheezing, No Hemoptysis, No Pleuritic Pain, No Sputum, No Other Gastrointestinal: No Nausea, No Vomiting, No Abdominal Pain, No Diarrhea, No Constipation, No Melena, No Hematochezia, No Other Genitourinary: No Dysuria, No Frequency, No Incontinence, No Hematuria, No Retention, No Other Musculoskeletal: No other, No neck pain, No shoulder pain, No arm pain, No back pain, No hand pain, No leg pain, No foot pain Skin: No Rash, No Lesions, No Jaundice, No Bruising, No Other Objective Vitals Vital Signs Date Time Temp Pulse Resp B/P (MAP) Pulse Ox O2 Delivery O2 Flow Rate FiO2 09/01/25 10:08 101/59 09/01/25 09:36 97.3 101 18 96 97.3 09/01/25 09:33 Nasal Cannula 4.0 09/01/25 09:33 36 Intake/Output Intake and Output 09/01/25 07:00 Intake Total 1200 ml Output Total 3875 ml Balance -2675 ml Intake Oral 1100 ml IV Total 100 ml Output Urine Total 3875 ml # Bowel Movements 1 General Appearance: Alert, Oriented X3, Cooperative HEENT: Atraumatic, PERRLA Cardiovascular: Normal S1, Normal S2 Abdomen: Normal bowel sounds, Soft, No tenderness Musculoskeletal: Normal sensory function, Normal motor function Skin: Dry, Intact Psych/Mental Status: Mental status NL, Mood NL Medications Current Medications Medications Dose Ordered Sig/Atilio Route Start Time Stop Time Status Last Admin Dose Admin Albuterol 2.5 mg Q6HWA NEB 08/31/25 06:00 09/01/25 06:12 2.5 MG Ipratropium [place] 0.5 mg Q6HWA NEB 08/31/25 06:00 09/01/25 06:12 0.5 MG Acetaminophen 650 mg Q6HR PO 08/31/25 00:00 09/01/25 05:09 650 MG Acetaminophen/ Hydrocodone Bitart 1 tab Q6HP PRN PO 08/30/25 21:45 09/01/25 10:22 1 TAB Morphine Sulfate 2 mg Q4HPRN PRN IV 08/30/25 21:45 Enoxaparin Sodium 40 mg DAILY SC 08/31/25 10:00 09/01/25 10:07 40 MG Pantoprazole Sodium 40 mg DAILY@0600 PO 08/31/25 06:00 09/01/25 05:09 40 MG Furosemide 20 mg DAILY IV 09/01/25 10:00 09/01/25 10:08 20 MG Ertapenem 1 gm/ Sodium Chloride 50 ml @ 100 mls/hr DAILY IV 09/02/25 10:00 UNV Fluconazole 100 mg DAILY PO 09/02/25 10:00 UNV Laboratory Results Laboratory Tests 08/30/25 19:15 Urinalysis Test 08/30/25 18:30 Urine Color Light-yellow (Yellow) Urine Clarity Clear (Clear) Urine pH 6.0 (5.0-9.0) Urine Specific [place] 1.009 (1.001-1.035) Urine Protein 1+ (Negative) H Urine Ketones Negative (Negative) Urine Blood Negative /uL (Negative) Urine Nitrite Negative (Negative) Urine Bilirubin Negative (Negative) Urine Urobilinogen Normal mg/dL (Negative) Urine Leukocyte Esterase 1+ /uL (Negative) Urine RBC 5 /hpf (0 - 4) Urine Microscopic WBC 12 /HPF (0-5) H Urine Squamous Epithelial Cells None seen /hpf (<5) Urine Bacteria None seen /hpf (None Seen) Urine Yeast (Budding) Occasional /hpf (None Urine Glucose Normal mg/dL (Normal) Urine Test Negative (Negative) Microbiology Microbiology Date/Time Source Procedure Growth Status 08/30/25 23:36 Nose MRSA Screen - Final Complete 08/30/25 21:24 Blood Blood Culture - Preliminary NO GROWTH AFTER 24 HOURS OF INCUBATION. Resulted 08/30/25 18:30 Voided Urine Urine Culture - Preliminary Resulted Labs and/or images reviewed: Labs reviewed by me, Image(s) reviewed by me Assessment/Plan Assessment/Plan Impression: -acute on chronic respiratory failure -COPD with exacerbation -right lower lobe pneumonia -? 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 Stop Meropenem. Continue with Invanz. [place] [id number] yeast. Start Diflucan p.o.. -bronchodilators -Pulmicort -CT scan of the chest pending -continue Plavix -continue antibiotic therapy -PUD, DVT prophylaxis Total time spent with patient discussing and formulating plan of care: 35 minutes. This medical document was created using an electronic medical record system with [employer] dictation system. Although this document has been carefully reviewed, there may still be some phonetic and typographical errors. These areas are purely typographical due to imperfections of the software programs, and do not reflect any compromise in the patient's medical care. Plan discussed with: Patient, Other (RN) My Orders Orders - YULIA WEBB NP Procedure Category Date Status Time Furosemide Injection PHA 09/01/25 In Process (Lasix Injection) 10:[address] 09/01/25 Logged 10:45 Ertapenem Sod Inj PHA 09/02/25 Logged (Invanz) 10:00 Fluconazole Tablet PHA 09/01/25 Logged (Diflucan Tablet) 10:45 Fluconazole Tablet PHA 09/02/25 Logged (Diflucan Tablet) 10:00 Insert Midline ORDERS 09/01/25 Transmitted 10:54 Date of Service: Sep 01, 2025 Billing Provider: YULIA WEBB NP Common Visit Codes: [id number] INP/OBS CARE(HIGH) YULIA WEBB NP Sep 01, 2025 10:58
--- NOTE | 2025-09-01 12:07 | DVH ---
EXAM: CT CHEST WITHOUT CONTRAST History: Right lung opacity Comparison Study: CT CHEST WITHOUT CONTRAST on DOS: 05/21/25 TECHNIQUE: Multidetector CT of the chest was performed. Imaging was performed without IV contrast. Axial, coronal, and sagittal multiplanar reformats were obtained from the axial data set by the technologist. Radiation Dose : CTDI vol 4.6 mGy, DLP 179.2 mGy*cm. FINDINGS: Evaluation is degraded by respiratory motion. Lungs/pleura: Small bilateral pleural effusions with adjacent opacity. 3.8 cm oval-shaped intermediate density opacity abuts the right pleural effusion. Emphysema. Scattered atelectasis /scarring. Heart/Great vessels: No cardiomegaly or pericardial effusion. Moderate atherosclerotic calcifications of the aorta. Prior aortic valve repair. Mediastinum: Borderline mediastinal nodes. Soft tissues/Bones: Median sternotomy changes. No acute fracture. Upper abdomen: Unremarkable. IMPRESSION: 1. Small qjqpg-[id number]-[id number]-left pleural effusion with adjacent opacity. Superimposed infectious / inflammatory process cannot be excluded. 3.8 cm oval- shaped intermediate density opacity abuts the right pleural effusion. Consider contrast-enhanced CT in further assessment. Follow-up to resolution is suggested. 2. Emphysema. 3. Additional findings as detailed.
[2025-09-01] MEDS: FLUCONAZOLE 100 MG TAB PO ONE (12:45)
--- NOTE | 2025-09-01 14:27 | MEDREC ---
[facility] ASP Intervention Section I [facility] ASP Intervention: Review courses of therapy (Patient was re-admitted with shortness of breath. No urinary symptoms reported. Previous UTI was treated during prior admission, and current urine culture is negative. Therefore, continuation of ertapenem (Invanz) for UTI is not indicated and should be discon tinued.Current presentation suggests pneumonia, and patient has risk factors for drug-resistant organisms (recent hospitalization, prior antibiotic exposure). According to IDSA/ATS guidelines for empiric therapy in severe pneumonia with MRSA and Pseudomonas risk, recommend initiating:Vancomycin for MRSA coverage, Cefepime for broad-spectrum coverage including Pseudomonas. Consider MRSA nasal PCR for early de-escalation) LINO NAZARIO [facility] RESIDENT Sep 01, 2025 14:27
[2025-09-02] VITALS (12 sets, daily range): BP systolic 91–109; BP diastolic 52–67; PULSE 79–102; RESP 16–20; TEMP 97.2–98.3; O2SAT 94–100
[2025-09-02] MEDS: FLUCONAZOLE 100 MG TAB PO SCH (09:35)
--- NOTE | 2025-09-02 09:48 | DVHPN2 ---
Subjective Patient denies any symptoms Reviewed: Care Plan, H&P, Labs Changes from previous H/P or p: No Changes General: Per HPI Eyes: No Pain, No Vision change, No Conjunctivae inflammation, No Eyelid inflammation, No Other, No Redness ENT: No Ear pain, No Ear discharge, No Nose pain, No Nose discharge, No Nose congestion, No Mouth pain, No Mouth swelling, No Throat pain, No Throat swelling, No Other Cardiovascular: No Chest Pain, No Palpitations, No Orthopnea, No Paroxysmal Noc. Dyspnea, No Edema, No Lt Headedness, No Other Respiratory: No Cough, No Dry; Shortness of breath; No SOB with excertion, No Wheezing, No Hemoptysis, No Pleuritic Pain, No Sputum, No Other Gastrointestinal: No Nausea, No Vomiting, No Abdominal Pain, No Diarrhea, No Constipation, No Melena, No Hematochezia, No Other Genitourinary: No Dysuria, No Frequency, No Incontinence, No Hematuria, No Retention, No Other Musculoskeletal: No other, No neck pain, No shoulder pain, No arm pain, No back pain, No hand pain, No leg pain, No foot pain Skin: No Rash, No Lesions, No Jaundice, No Bruising, No Other Objective Vitals Vital Signs Date Time Temp Pulse Resp B/P (MAP) Pulse Ox O2 Delivery O2 Flow Rate FiO2 09/02/25 09:35 91/50 09/02/25 09:00 97.6 102 20 94 97.6 09/02/25 07:46 Nasal Cannula* 4 36 Intake/Output Intake and Output 09/02/25 07:00 Intake Total 1075 ml Output Total 3050 ml Balance -1975 ml Intake Oral 1075 ml Output Urine Total 3050 ml # Bowel Movements 1 General Appearance: Alert, Oriented X3, Cooperative HEENT: Atraumatic, PERRLA Cardiovascular: Normal S1, Normal S2 Abdomen: Normal bowel sounds, Soft, No tenderness Musculoskeletal: Normal sensory function, Normal motor function Skin: Dry, Intact Psych/Mental Status: Mental status NL, Mood NL Medications Current Medications Medications Dose Ordered Sig/Atilio Route Start Time Stop Time Status Last Admin Dose Admin Albuterol 2.5 mg Q6HWA [facility] 08/31/25 06:00 09/02/25 06:29 2.5 MG Ipratropium [place] 0.5 mg Q6HWA [facility] 08/31/25 06:00 09/02/25 06:29 0.5 MG Acetaminophen 650 mg Q6HR PO 08/31/25 00:00 09/01/25 23:59 650 MG Acetaminophen/ Hydrocodone Bitart 1 tab Q6HP PRN PO 08/30/25 21:45 09/02/25 04:33 1 TAB Morphine Sulfate 2 mg Q4HPRN PRN IV 08/30/25 21:45 Enoxaparin Sodium 40 mg DAILY SC 08/31/25 10:00 09/02/25 09:36 40 MG Pantoprazole Sodium 40 mg DAILY@0600 PO 08/31/25 06:00 09/02/25 05:57 40 MG Furosemide 20 mg DAILY IV 09/01/25 10:00 09/01/25 10:08 20 MG Ertapenem 1 gm/ Sodium Chloride 50 ml @ 100 mls/hr DAILY IV 09/02/25 10:00 Fluconazole 100 mg DAILY PO 09/02/25 10:00 09/02/25 09:35 100 MG Laboratory Results Laboratory Tests 08/30/25 19:15 09/01/25 20:15 Urinalysis Test 08/30/25 18:30 Urine Color Light-yellow (Yellow) Urine Clarity Clear (Clear) Urine pH 6.0 (5.0-9.0) Urine Specific [place] 1.009 (1.001-1.035) Urine Protein 1+ (Negative) H Urine Ketones Negative (Negative) Urine Blood Negative /uL (Negative) Urine Nitrite Negative (Negative) Urine Bilirubin Negative (Negative) Urine Urobilinogen Normal mg/dL (Negative) Urine Leukocyte Esterase 1+ /uL (Negative) Urine RBC 5 /hpf (0 - 4) Urine Microscopic WBC 12 /HPF (0-5) H Urine Squamous Epithelial Cells None seen /hpf (<5) Urine Bacteria None seen /hpf (None Seen) Urine Yeast (Budding) Occasional /hpf (None Urine Glucose Normal mg/dL (Normal) Urine Test Negative (Negative) Microbiology Microbiology Date/Time Source Procedure Growth Status 08/30/25 23:36 Nose MRSA Screen - Final Complete 08/30/25 21:24 Blood Blood Culture - Preliminary NO GROWTH AFTER 48 HOURS OF INCUBATION. Resulted 08/30/25 18:30 Voided Urine Urine Culture - Preliminary Resulted Labs and/or images reviewed: Labs reviewed by me, Image(s) reviewed by me Assessment/Plan Assessment/Plan Impression: -acute on chronic respiratory failure -COPD with exacerbation -right lower lobe pneumonia -? 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 Discussed findings. Refusing bronchoscopy. Pulmonary consult -Midline assessed, OK to use. -Continue abx -bronchodilators -Pulmicort -continue Plavix -PUD, DVT prophylaxis -Repeat labs Total time spent with patient discussing and formulating plan of care: 35 minutes. This medical document was created using an electronic medical record system with [employer] dictation system. Although this document has been carefully reviewed, there may still be some phonetic and typographical errors. These areas are purely typographical due to imperfections of the software programs, and do not reflect any compromise in the patient's medical care. Plan discussed with: Patient, Other My Orders RN Orders - YULIA WEBB NP Procedure Category Date Status Time Chest Without Contrast CT 09/01/25 Resulted 10:45 Ertapenem Sod Inj PHA 09/02/25 In Process (Invanz) 10:00 Fluconazole Tablet PHA 09/02/25 In Process (Diflucan Tablet) 10:00 Insert Midline ORDERS 09/01/25 Transmitted 10:54 Insert Midline ORDERS 09/01/25 Transmitted 10:56 Basic Metabolic Panel LAB 09/02/25 Logged 09:28 Complete Blood Count LAB 09/02/25 Logged 09:28 *Consult CONS 09/02/25 Transmitted 09:28 Alprazolam Tablet PHA 09/02/25 Logged (Xanax Tablet) 09:45 Date of Service: Sep 02, 2025 Billing Provider: YULIA WEBB NP Common Visit Codes: [id number] INP/OBS CARE(HIGH) YULIA WEBB NP Sep 02, 2025 09:48
[2025-09-02] MEDS ORDERED: ACETYLCYSTEINE 10 %(100MG/ML) SOL 4ML NEB SCH (10:00)
[2025-09-02] MEDS: ERTAPENEM SOD INJ 1 GM in SODIUM CHL 0.9% 50 ML IV SCH (12:29)
[2025-09-02] MEDS: ACETYLCYSTEINE 10 %(100MG/ML) SOL 4ML NEB SCH (13:29)
[2025-09-02 14:08] LABS: Hemoglobin 8.3 g/dL (12.2-16.2)
[2025-09-02 14:10] LABS: Hematocrit 25.6 % (36.0-46.0); Mean Corpuscular Hemoglobin 28.3 pg (28.0-32.0); Mean Corpuscular Volume 86.9 fL (80.0-100.0)
[2025-09-02 14:20] LABS: Potassium 3.6 mmol/L (3.5-5.1); Sodium 138 mmol/L (136-145)
[2025-09-02 14:21] LABS: Anion Gap 5 (5-15)
[2025-09-02 14:26] LABS: BUN/Creatinine Ratio 25.8 (10.0-20.0); Blood Urea Nitrogen 17 mg/dL (9-23); Calcium 7.8 mg/dL (8.7-10.4); Carbon Dioxide 37 mmol/L (20-31); Chloride 96 mmol/L (98-107); Glucose 118 mg/dL (74-106)
[2025-09-02 14:32] LABS: Total Cells Counted 100.0 (100)
[2025-09-02] MEDS ORDERED: MORPHINE SULFATE 4 MG/ML SYR/VIAL IV PRN (22:00)
[2025-09-02] MEDS: ALPRAZolam 0.25 MG TAB PO PRN (23:35)
[2025-09-03] VITALS (10 sets, daily range): BP systolic 80–119; BP diastolic 50–68; PULSE 70–107; RESP 16–20; TEMP 97.6–98.2; O2SAT 90–100
--- NOTE | 2025-09-03 07:03 | DVHINCON2 ---
Date of service: Sep 02, 2025 Referring Physician WENDY Webb Reason for Consultation Pneumonia, emphysema, and pleural effusion, possible thoracentesis. History of Present Illness Patient is a 64-year-old woman with past medical history of COPD (uses 2 L oxygen at home), questionable lung cancer, asthma, CHF, muscular dystrophy, hyperlipidemia, hypertension, coronary artery disease ( s/p PCI 1 stent in 2023 and open heart surgery), who presented to ED on 08/30/25 with chief complaint of worsening shortness of breath. She also reported generalized weakness, pain and decreased oral intake. Pt was recently hospitalized with pneumonia and complicated cystitis with ESBL In urine and was discharged home with ertapenem. Patient denies fever, nausea, vomiting, or any recent bowel habit changes. Patient denies any sick contacts or recent injuries. Patient was admitted for further care. Pulmonary consultation is requested for evaluation and management of pneumonia and pleural effusion. Review of Systems: 14-point review of systems negative unless otherwise noted above. Past Medical History: COPD (uses 2 L oxygen at home), questionable lung cancer, asthma, CHF, muscular dystrophy, hyperlipidemia, hypertension, coronary artery disease ( s/p PCI 1 stent in 2023 and open heart surgery) Past Surgical History: Hysterectomy, PCI status post 1 stent in 2023, open heart surgery Medications: Reviewed. Allergies: No known drug allergies. Family History: CHF, aneurysm, muscular dystrophy, hypertension. Social History: Former smoker (stopped smoking 10 years back). Denies alcohol or drug use. Family History: FH: CHF (congestive heart failure) G8 MOTHER FH: aneurysm G8 MOTHER FH: muscular dystrophy G8 FATHER Hypertension G8 MOTHER Allergies: Coded Allergies: NO KNOWN ALLERGIES (Unverified , 02/17/23) Home Meds Active Scripts Doxycycline (Monohydrate) (Doxycycline) 100 Mg Cap, 100 MG PO BID for 10 Days, #2 CAP Prov:YULIA WEBB NP 08/28/25 Acetaminophen (Tylenol 8 Hour Arthritis) 650 Mg Tab, 650 MG PO TID, #30 TAB Prov:CAMILLE HERNANDEZ 02/17/23 Methocarbamol (Methocarbamol) 750 Mg Tab, 750 MG PO BID, #20 TAB Prov:CAMILLE HERNANDEZ 02/17/23 Reported Medications Empagliflozin (Jardiance) 10 Mg Tab, 1 TAB PO DAILY for 90 Days, #90 09/01/25 Buspirone Hcl (Buspirone Hcl) 5 Mg Tab, 1 TAB PO TID for 31 Days, #93 09/01/25 Spironolactone (Spironolactone) 25 Mg Tab, 12.5 MG PO DAILY for 31 Days, #16 09/01/25 Lisinopril (Lisinopril) 2.5 Mg Tab, 1 TAB PO DAILY for 31 Days, #31 09/01/25 Metoprolol Tartrate (Lopressor) 25 Mg Tb, 1 TAB PO DAILY for 31 Days, #31 09/01/25 Aspirin (Aspir-Low) 81 Mg Tab, 81 MG PO DAILY for 30 Days, MG 09/05/24 Atorvastatin Calcium (ATORVASTATIN CALCIUM) 10 Mg Tab, PO 09/05/24 Discontinued Scripts Prednisone (Prednisone) 20 Mg Tab, 20 MG PO BID for 6 Days, #6 MG 10 mg twice a day x 3 days 10 mg once a day x 3 days Prov:YULIA WEBB HEEL COMPRESSOR 09/05/23 Current Medications Current Medications Medications (Trade) Dose Ordered Sig/Atilio Route PRN Reason Start Time Stop Time Status Last Admin Ertapenem 1 gm/ Sodium Chloride 50 ml @ 100 mls/hr DAILY IV 09/02/25 10:00 09/02/25 12:29 Fluconazole (Diflucan Tablet) 100 mg DAILY PO 09/02/25 10:00 09/02/25 09:35 Alprazolam (Xanax Tablet) 0.25 mg Q8HP PRN PO ANXIETY 09/02/25 09:45 09/02/25 23:35 Acetylcysteine (Mucomyst Inahalation 10%) 100 mg Q4HR NEB 09/02/25 10:00 09/02/25 11:18 DC Acetylcysteine (Mucomyst Inahalation 10%) 100 mg Q6HWA NEB 09/02/25 12:00 09/02/25 13:29 Morphine Sulfate 2 mg Q4HPRN PRN IV SEVERE PAIN (7-10 PAIN SCALE) 09/02/25 22:00 Vital Signs Vital Signs Date Time Temp Pulse Resp B/P (MAP) Pulse Ox O2 Delivery O2 Flow Rate FiO2 09/03/25 05:00 98.0 78 16 99/68 (78) 99 98.0 09/02/25 22:27 4.0 36 09/02/25 20:00 Nasal Cannula* Physical Exam Gen.: Patient lying in bed in no apparent distress. On supplemental oxygen. Head: Normocephalic, atraumatic. Eyes: EOMI/PERRLA. Ears: Normal hearing. Normal anatomy. Neck/trachea: Trachea midline, supple. Nose: Normal external anatomy. Mouth: Moist mucous membranes. Chest: Decreased air entry bilaterally. No wheezing or rhonchi. Cardiovascular: Positive S1, positive S2. Regular rate and rhythm. Abdomen: Positive bowel sounds in all 4 quadrants. Soft, non-tender, non- distended. : Deferred. Rectal: Deferred. Skin: Warm, dry. Intact. Extremities: 2+ radial pulses bilaterally. No lower extremity edema. Neuro: Awake, alert, oriented x3. No gross motor or sensory deficits. Cranial nerves II through XII intact. Gait not assessed. Labs/Diagnostic Data Labs Test 09/02/25 13:58 09/01/25 20:15 08/30/25 23:36 08/30/25 21:24 Range/Units White Blood Count 12.7 #H 4.4-10.8 10^3/uL Red Blood Count 2.95 L 4.0-5.20 10^6/uL Hemoglobin 8.3 #L 12.2-16.2 g/dL Hematocrit 25.6 #L 36.0-46.0 % Mean Corpuscular Volume 86.9 80.0-100.0 fL Mean Corpuscular Hemoglobin 28.3 28.0-32.0 pg Mean Corpuscular Hemoglobin Concent 32.5 32.0-36.0 g/dL Red Cell Distribution Width 14.6 H 11.8-14.3 % Platelet Count 310 140-450 10^3/uL Mean Platelet Volume 7.3 6.9-10.8 fL Neutrophils (%) (Auto) 37.0-80.0 % Lymphocytes (%) (Auto) 10.0-50.0 % Monocytes (%) (Auto) 0.0-12.0 % Basophils (%) (Auto) 0.0-2.0 % Neutrophils # (Auto) 1.6-8.6 10 ^3/uL Lymphocytes # (Auto) 0.4-5.4 10 ^3/uL Monocytes # (Auto) 0-1.3 10 ^3/uL Differential Total Cells Counted 100.0 100 Neutrophils % (Manual) 61 37.0-80.0 Band Neutrophils % (Manual) 2 Lymphocytes % (Manual) 14 10.0-50.0 Monocytes % (Manual) 22 H 0-12 Eosinophils % (Manual) 0 0-7 Basophils % (Manual) 0 0.0-2.0 Metamyelocytes % (manual) 0 Myelocytes % (Manual) 1 Promyelocytes % (Manual) 0 Blast Cells % (Manual) 0 Reactive Lymphocytes 0 Platelet Estimate Adequate Sodium Level 138 136-145 mmol/L Potassium Level 3.6 3.5-5.1 mmol/L Chloride Level 96 L 98-107 mmol/L Carbon Dioxide Level 37 H 20-31 mmol/L Anion Gap 5 5-15 Blood Urea Nitrogen 17 9-23 mg/dL Creatinine 0.66 0.550-1.02 mg/dL Glomerular Filtration Rate Calc 99 >90 mL/min BUN/Creatinine Ratio 25.8 H 10.0-20.0 Serum Glucose 118 H 74-106 mg/dL Calcium Level 7.8 L 8.7-10.4 mg/dL Vancomycin Level Trough 37.0 *H 5-10 ug/mL Influenza Type A Antigen Negative Negative Influenza Type B Antigen Negative Negative SARS-CoV-2 Antigen (Rapid) Negative NEGATIVE Magnesium Level 1.5 L 1.6-2.6 mg/dL Troponin I High Sensitivity 17 </=34 ng/L Test 08/30/25 19:15 08/30/25 18:30 Range/Units Eosinophils (%) (Auto) 0.0-7.0 % Eosinophils # (Auto) 0-0.8 10 ^3/uL Basophils # (Auto) 0-0.2 10 ^3/uL Nucleated Red Blood Cells % Smudge Cells 1 /100 WBC Large Platelets Few Anisocytosis (manual) Slight Microcytosis Slight Macrocytosis Slight Stomatocytes Few Lactic Acid Level 0.9 0.4-2.0 mmol/L Total Bilirubin 0.2 0.2-1.0 mg/dL Aspartate Amino Transferase (AST) 27 13-40 U/L Alanine Aminotransferase (ALT) 14 7-40 U/L Alkaline Phosphatase 112 46-116 U/L B-Type Natriuretic Peptide 122.78 0-100 pg/mL Total Protein 4.8 L 5.7-8.2 g/dL Albumin 2.8 L 3.2-4.8 g/dL Urine Color Light-yellow Yellow Urine Clarity Clear Clear Urine pH 6.0 5.0-9.0 Urine Specific [place] 1.009 1.001-1.035 Urine Protein 1+ H Negative Urine Ketones Negative Negative Urine Blood Negative Negative /uL Urine Nitrite Negative Negative Urine Bilirubin Negative Negative Urine Urobilinogen Normal Negative mg/dL Urine Leukocyte Esterase 1+ Negative /uL Urine RBC 5 0 - 4 /hpf Urine Microscopic WBC 12 H 0-5 /HPF Urine Squamous Epithelial Cells None seen <5 /hpf Urine Bacteria None seen None Seen /hpf Urine Yeast (Budding) Occasional None Seen /hpf Urine Glucose Normal Normal mg/dL Urine Test Negative Negative Microbiology Date/Time Source Procedure Growth Status 08/30/25 23:36 Nose MRSA Screen - Final Complete 08/30/25 21:24 Blood Blood Culture - Preliminary NO GROWTH AFTER 72 HOURS OF INCUBATION. Resulted 08/30/25 18:30 Voided Urine Urine Culture - Preliminary Presumptive Emma albicans Resulted Assessment Impression: Acute hypoxic respiratory failure Pneumonia, likely GNR Pleural effusion Atelectasis Emphysema Hx of nicotine dependence Plan: Supplemental oxygen Titrate to keep O2 sats above 92%. Chest CT reviewed from 09/01: Small [id number]-[id number]-left pleural effusion with adjacent opacity. Superimposed infectious/inflammatory process cannot be excluded. 3.8 cm oval-shaped intermediate density opacity abuts the right pleural effusion. Emphysema. Obtain limited chest ultrasound to evaluate if pleural effusion amenable for thoracentesis. Continue antibiotics/antifungals Incentive spirometry WBC count improving. Diurese with Lasix as tolerated Monitor renal function. Monitor electrolytes. Supplement as necessary. Monitor ins and outs. GI prophylaxis - Protonix DVT prophylaxis - Lovenox. Prognosis: Poor given patient's multiple co-morbidities. Rest of plan per hospitalist and other consultants. Thank you, WENDY Webb, for allowing me to participate in this patient's care. Further recommendations will depend on the patient's clinical course. Please do not hesitate to contact me if you have any questions or concerns. This medical document was created using an electronic medical record system with [employer] system. Although these documentations are being carefully reviewed, there may still be some phonetic and typographical changes. The errors are purely typographical, due to imperfection on the software program, and do not reflect any compromise in the patient's medical care. Plan discussed with: Patient, Other (HEEL COMPRESSOR Flip/) Visit Coding Pulmonary Billing Provider: CANDIDA MCKEON MD Date of Service if different f: Sep 02, 2025 Common Visit Codes: [id number] INP/OBS CARE (HIGH) CANDIDA MCKEON MD Sep 03, 2025 07:03
[2025-09-03] MEDS: MAGNESIUM SULFATE 1GM/100ML 100 ML IV SCH (08:45)
[2025-09-03] MEDS: SODIUM CHLORIDE 0.9% 500 ML IV ONE (13:26)
--- NOTE | 2025-09-03 14:25 | DVHPN2 ---
Subjective Patient denies any symptoms Reviewed: Care Plan, H&P, Labs Changes from previous H/P or p: No Changes General: Per HPI Eyes: No Pain, No Vision change, No Conjunctivae inflammation, No Eyelid inflammation, No Other, No Redness ENT: No Ear pain, No Ear discharge, No Nose pain, No Nose discharge, No Nose congestion, No Mouth pain, No Mouth swelling, No Throat pain, No Throat swelling, No Other Cardiovascular: No Chest Pain, No Palpitations, No Orthopnea, No Paroxysmal Noc. Dyspnea, No Edema, No Lt Headedness, No Other Respiratory: No Cough, No Dry; Shortness of breath; No SOB with excertion, No Wheezing, No Hemoptysis, No Pleuritic Pain, No Sputum, No Other Gastrointestinal: No Nausea, No Vomiting, No Abdominal Pain, No Diarrhea, No Constipation, No Melena, No Hematochezia, No Other Genitourinary: No Dysuria, No Frequency, No Incontinence, No Hematuria, No Retention, No Other Musculoskeletal: No other, No neck pain, No shoulder pain, No arm pain, No back pain, No hand pain, No leg pain, No foot pain Skin: No Rash, No Lesions, No Jaundice, No Bruising, No Other Objective Vitals Vital Signs Date Time Temp Pulse Resp B/P (MAP) Pulse Ox O2 Delivery O2 Flow Rate FiO2 09/03/25 12:39 94 18 80/50 (60) 90 09/03/25 10:30 Nasal Cannula 4.0 09/03/25 10:30 36 09/03/25 09:00 97.6 97.6 Intake/Output Intake and Output 09/03/25 07:00 Intake Total 170 ml Output Total 1350 ml Balance -1180 ml Intake Oral 120 ml IV Total 50 ml Output Urine Total 1350 ml General Appearance: Alert, Oriented X3, Cooperative HEENT: Atraumatic, PERRLA Lungs: Clear to auscultation, Normal air movement Cardiovascular: Normal S1, Normal S2 Abdomen: Normal bowel sounds, Soft, No tenderness Musculoskeletal: Normal sensory function, Normal motor function Skin: Dry, Intact Psych/Mental Status: Mental status NL, Mood NL Medications Current Medications Medications Dose Ordered Sig/Atilio Route Start Time Stop Time Status Last Admin Dose Admin Albuterol 2.5 mg Q6HWA NEB 08/31/25 06:00 09/02/25 13:26 2.5 MG Ipratropium [place] 0.5 mg Q6HWA NEB 08/31/25 06:00 09/02/25 13:26 0.5 MG Acetaminophen 650 mg Q6HR PO 08/31/25 00:00 09/03/25 11:49 650 MG Acetaminophen/ Hydrocodone Bitart 1 tab Q6HP PRN PO 08/30/25 21:45 09/03/25 08:53 1 TAB Enoxaparin Sodium 40 mg DAILY SC 08/31/25 10:00 09/03/25 09:20 40 MG Pantoprazole Sodium 40 mg DAILY@0600 PO 08/31/25 06:00 09/03/25 05:57 40 MG Furosemide 20 mg DAILY IV 09/01/25 10:00 09/01/25 10:08 20 MG Ertapenem 1 gm/ Sodium Chloride 50 ml @ 100 mls/hr DAILY IV 09/02/25 10:00 09/03/25 10:40 100 MLS/HR Fluconazole 100 mg DAILY PO 09/02/25 10:00 09/03/25 09:19 100 MG Alprazolam 0.25 mg Q8HP PRN PO 09/02/25 09:45 09/02/25 23:35 0.25 MG Acetylcysteine 100 mg Q6HWA [facility] 09/02/25 12:00 09/02/25 13:29 100 MG Morphine Sulfate 2 mg Q4HPRN PRN IV 09/02/25 22:00 Laboratory Results Laboratory Tests 09/02/25 13:58 Chemistry Test 09/03/25 07:36 Magnesium Level 1.4 mg/dL (1.6-2.6) L Urinalysis Test 08/30/25 18:30 Urine Color Light-yellow (Yellow) Urine Clarity Clear (Clear) Urine pH 6.0 (5.0-9.0) Urine Specific [place] 1.009 (1.001-1.035) Urine Protein 1+ (Negative) H Urine Ketones Negative (Negative) Urine Blood Negative /uL (Negative) Urine Nitrite Negative (Negative) Urine Bilirubin Negative (Negative) Urine Urobilinogen Normal mg/dL (Negative) Urine Leukocyte Esterase 1+ /uL (Negative) Urine RBC 5 /hpf (0 - 4) Urine Microscopic WBC 12 /HPF (0-5) H Urine Squamous Epithelial Cells None seen /hpf (<5) Urine Bacteria None seen /hpf (None Seen) Urine Yeast (Budding) Occasional /hpf (None Urine Glucose Normal mg/dL (Normal) Urine Test Negative (Negative) Microbiology Microbiology Date/Time Source Procedure Growth Status 08/30/25 23:36 Nose MRSA Screen - Final Complete 08/30/25 21:24 Blood Blood Culture - Preliminary NO GROWTH AFTER 72 HOURS OF INCUBATION. Resulted 08/30/25 18:30 Voided Urine Urine Culture - Final Presumptive Emma albicans Complete Labs and/or images reviewed: Labs reviewed by me, Image(s) reviewed by me Assessment/Plan Assessment/Plan Impression: -acute on chronic respiratory failure -COPD with exacerbation -right lower lobe pneumonia -? 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 Today, patient was noted to be somewhat hypotensive at approximately noon. Assessed the patient, not found to be sent hepatic. Noted pernicious drop in hemoglobin, with new orders for withdrawing H&H. No signs of active bleeding. Discussed case with service center specialist. No new orders at this time other than normal saline bolus. -Midline assessed, OK to use. -Continue abx -bronchodilators -Pulmicort -continue Plavix -PUD, DVT prophylaxis -Repeat labs Total time spent with patient discussing and formulating plan of care: 35 minutes. This medical document was created using an electronic medical record system with [email or web address] dictation system. Although this document has been carefully reviewed, there may still be some phonetic and typographical errors. These areas are purely typographical due to imperfections of the software programs, and do not reflect any compromise in the patient's medical care. Plan discussed with: Patient, Other (RN) My Orders Orders - YULIA WEBB NP Procedure Category Date Status Time Stool Occult Blood LAB 09/03/25 Logged 08:20 Hemoglobin & LAB 09/03/25 Verified Hematocrit 14:22 Date of Service: Sep 03, 2025 Billing Provider: YULIA WEBB NP Common Visit Codes: [id number] INP/OBS CARE(HIGH) YULIA WEBB NP Sep 03, 2025 14:25
[2025-09-03 14:30] LABS: Hematocrit 29.7 % (36.0-46.0); Hemoglobin 9.5 g/dL (12.2-16.2)
--- NOTE | 2025-09-03 23:04 | DVHPN2 ---
Subjective DOS: 09/03/2025 Patient seen and examined at bedside. Remains on supplemental oxygen Overnight events reviewed. Reviewed: Care Plan, H&P, Labs Changes from previous H/P or p: No Changes General: Per HPI Eyes: No Pain, No Vision change, No Conjunctivae inflammation, No Eyelid inflammation, No Other, No Redness ENT: No Ear pain, No Ear discharge, No Nose pain, No Nose discharge, No Nose congestion, No Mouth pain, No Mouth swelling, No Throat pain, No Throat swelling, No Other Cardiovascular: No Chest Pain, No Palpitations, No Orthopnea, No Paroxysmal Noc. Dyspnea, No Edema, No Lt Headedness, No Other Respiratory: No Cough, No Dry; Shortness of breath; No SOB with excertion, No Wheezing, No Hemoptysis, No Pleuritic Pain, No Sputum, No Other Gastrointestinal: No Nausea, No Vomiting, No Abdominal Pain, No Diarrhea, No Constipation, No Melena, No Hematochezia, No Other Genitourinary: No Dysuria, No Frequency, No Incontinence, No Hematuria, No Retention, No Other Musculoskeletal: No other, No neck pain, No shoulder pain, No arm pain, No back pain, No hand pain, No leg pain, No foot pain Skin: No Rash, No Lesions, No Jaundice, No Bruising, No Other Objective Vitals Vital Signs Date Time Temp Pulse Resp B/P (MAP) Pulse Ox O2 Delivery O2 Flow Rate FiO2 09/03/25 21:00 98.1 89 18 119/67 (84) 99 98.1 09/03/25 19:07 Nasal Cannula* 4 36 Intake/Output Intake and Output 09/03/25 07:00 Intake Total 170 ml Output Total 1350 ml Balance -1180 ml Intake Oral 120 ml IV Total 50 ml Output Urine Total 1350 ml Exam Gen.: Patient lying in bed in no apparent distress. On supplemental oxygen. Head: Normocephalic, atraumatic. Eyes: EOMI/PERRLA. Ears: Normal hearing. Normal anatomy. Neck/trachea: Trachea midline, supple. Nose: Normal external anatomy. Mouth: Moist mucous membranes. Chest: Decreased air entry bilaterally. No wheezing or rhonchi. Cardiovascular: Positive S1, positive S2. Regular rate and rhythm. Abdomen: Positive bowel sounds in all 4 quadrants. Soft, non-tender, non- distended. : Deferred. Rectal: Deferred. Skin: Warm, dry. Intact. Extremities: 2+ radial pulses bilaterally. No lower extremity edema. Neuro: Awake, alert, oriented x3. No gross motor or sensory deficits. Cranial nerves II through XII intact. Gait not assessed. General Appearance: Alert, Oriented X3, Cooperative HEENT: Atraumatic, PERRLA Lungs: Clear to auscultation, Normal air movement Cardiovascular: Normal S1, Normal S2 Abdomen: Normal bowel sounds, Soft, No tenderness Musculoskeletal: Normal sensory function, Normal motor function Skin: Dry, Intact Psych/Mental Status: Mental status NL, Mood NL Medications Current Medications Medications Dose Ordered Sig/Atilio Route Start Time Stop Time Status Last Admin Dose Admin Albuterol 2.5 mg Q6HWA NEB 08/31/25 06:00 09/03/25 19:07 2.5 MG Ipratropium [place] 0.5 mg Q6HWA NEB 08/31/25 06:00 09/03/25 19:07 0.5 MG Acetaminophen 650 mg Q6HR PO 08/31/25 00:00 09/03/25 11:49 650 MG Acetaminophen/ Hydrocodone Bitart 1 tab Q6HP PRN PO 08/30/25 21:45 09/03/25 18:00 1 TAB Enoxaparin Sodium 40 mg DAILY SC 08/31/25 10:00 09/03/25 09:20 40 MG Pantoprazole Sodium 40 mg DAILY@0600 PO 08/31/25 06:00 09/03/25 05:57 40 MG Furosemide 20 mg DAILY IV 09/01/25 10:00 09/01/25 10:08 20 MG Ertapenem 1 gm/ Sodium Chloride 50 ml @ 100 mls/hr DAILY IV 09/02/25 10:00 09/03/25 10:40 100 MLS/HR Fluconazole 100 mg DAILY PO 09/02/25 10:00 09/03/25 09:19 100 MG Alprazolam 0.25 mg Q8HP PRN PO 09/02/25 09:45 09/02/25 23:35 0.25 MG Acetylcysteine 100 mg Q6HWA NEB 09/02/25 12:00 09/03/25 19:07 100 MG Morphine Sulfate 2 mg Q4HPRN PRN IV 09/02/25 22:00 Laboratory Results Laboratory Tests 09/02/25 13:58 09/03/25 07:36 Chemistry Test 09/03/25 07:36 Magnesium Level 1.4 mg/dL (1.6-2.6) L Urinalysis Test 08/30/25 18:30 Urine Color Light-yellow (Yellow) Urine Clarity Clear (Clear) Urine pH 6.0 (5.0-9.0) Urine Specific [place] 1.009 (1.001-1.035) Urine Protein 1+ (Negative) H Urine Ketones Negative (Negative) Urine Blood Negative /uL (Negative) Urine Nitrite Negative (Negative) Urine Bilirubin Negative (Negative) Urine Urobilinogen Normal mg/dL (Negative) Urine Leukocyte Esterase 1+ /uL (Negative) Urine RBC 5 /hpf (0 - 4) Urine Microscopic WBC 12 /HPF (0-5) H Urine Squamous Epithelial Cells None seen /hpf (<5) Urine Bacteria None seen /hpf (None Seen) Urine Yeast (Budding) Occasional /hpf (None Urine Glucose Normal mg/dL (Normal) Urine Test Negative (Negative) Microbiology Microbiology Date/Time Source Procedure Growth Status 08/30/25 23:36 Nose MRSA Screen - Final Complete 08/30/25 21:24 Blood Blood Culture - Preliminary NO GROWTH AFTER 72 HOURS OF INCUBATION. Resulted 08/30/25 18:30 Voided Urine Urine Culture - Final Presumptive Emma albicans Complete Assessment/Plan Assessment/Plan Impression: Acute hypoxic respiratory failure Pneumonia, likely GNR Pleural effusion Atelectasis Emphysema Hx of nicotine dependence Events: Remains on supplemental oxygen, 2 LPM NC Taper O2 as tolerated Reviewed CT chest with [employer]. Patient has right lower lobe consolidation Patient has deferred bronchoscopy and lung biopsy. Continue bronchodilators Mucomyst Continue antibiotics - complete course Continue antifungal Incentive spirometry F/u cultures Nutritional support Overall prognosis is poor At risk for malignancy. Labs and imaging reviewed. Rest of plan as noted below. Plan: Supplemental oxygen Titrate to keep O2 sats above 92%. Chest CT reviewed from 09/01: Small [id number]-left pleural effusion with adjacent opacity. Superimposed infectious/inflammatory process cannot be excluded. 3.8 cm oval-shaped intermediate density opacity abuts the right pleural effusion. Emphysema. Obtain limited chest ultrasound to evaluate if pleural effusion amenable for thoracentesis. Continue bronchodilators Mucomyst Continue antibiotics/antifungals Incentive spirometry WBC count improving. Diurese with Lasix as tolerated Monitor renal function. Monitor electrolytes. Supplement as necessary. Monitor ins and outs. GI prophylaxis - Protonix DVT prophylaxis - Lovenox. Prognosis: Poor given patient's multiple co-morbidities. Rest of plan per hospitalist and other consultants. Thank you, WENDY Castelan, for allowing me to participate in this patient's care. Further recommendations will depend on the patient's clinical course. Please do not hesitate to contact me if you have any questions or concerns. This medical document was created using an electronic medical record system with [employer] dictation system. Although these documentations are being carefully reviewed, there may still be some phonetic and typographical changes. The errors are purely typographical, due to imperfection on the software program, and do not reflect any compromise in the patient's medical care. Plan discussed with: Patient, Other (DANICA Mccarty) Visit Coding Pulmonary Billing Provider: CANDIDA MCKEON MD Date of Service if different f: Sep 03, 2025 Common Visit Codes: [id number] INP/OBS CARE(HIGH) CANDIDA MCKEON MD Sep 03, 2025 23:04
[2025-09-04] VITALS (15 sets, daily range): BP systolic 84–104; BP diastolic 46–59; PULSE 73–105; RESP 14–18; TEMP 97.6–98.5; O2SAT 88–100
--- NOTE | 2025-09-04 10:20 | DVH ---
CHEST RADIOGRAPH Indication: pna Technique: Single frontal view of the chest was obtained COMPARISON: CT CHEST WITHOUT CONTRAST on DOS: 09/01/25, XY CHEST XRAY 1 VIEW on DOS: 08/30/25, XY CHEST XRAY 1 VIEW on DOS: 08/27/25, XY CHEST XRAY 1 VIEW on DOS: 08/24/25, XY CHEST PORTABLE on DOS: 08/22/25 FINDINGS: Lines and Tubes: None Lungs: Multifocal airspace disease. Pleura: No effusion.No pneumothorax. Cardiomediastinal contours: Median sternotomy. Unremarkable Bones: Unremarkable IMPRESSION: Multifocal airspace disease.
[2025-09-04 10:45] LABS: Hematocrit 26.1 % (36.0-46.0); Hemoglobin 8.3 g/dL (12.2-16.2); Mean Corpuscular Hemoglobin 27.6 pg (28.0-32.0); Mean Corpuscular Volume 86.7 fL (80.0-100.0); Potassium 4.1 mmol/L (3.5-5.1); Sodium 139 mmol/L (136-145)
[2025-09-04 10:46] LABS: Anion Gap 5 (5-15); Carbon Dioxide 38 mmol/L (20-31); Chloride 96 mmol/L (98-107)
[2025-09-04 10:47] LABS: Calcium 8.0 mg/dL (8.7-10.4)
[2025-09-04 10:51] LABS: Glucose 100 mg/dL (74-106)
[2025-09-04 10:52] LABS: BUN/Creatinine Ratio 38.0 (10.0-20.0); Blood Urea Nitrogen 19 mg/dL (9-23)
[2025-09-04 10:55] LABS: Total Cells Counted 100.0 (100)
--- NOTE | 2025-09-04 12:26 | DVHPN2 ---
Subjective Patient denies any symptoms Reviewed: Care Plan, H&P, Labs Changes from previous H/P or p: No Changes General: Per HPI Eyes: No Pain, No Vision change, No Conjunctivae inflammation, No Eyelid inflammation, No Other, No Redness ENT: No Ear pain, No Ear discharge, No Nose pain, No Nose discharge, No Nose congestion, No Mouth pain, No Mouth swelling, No Throat pain, No Throat swelling, No Other Cardiovascular: No Chest Pain, No Palpitations, No Orthopnea, No Paroxysmal Noc. Dyspnea, No Edema, No Lt Headedness, No Other Respiratory: No Cough, No Dry; Shortness of breath; No SOB with excertion, No Wheezing, No Hemoptysis, No Pleuritic Pain, No Sputum, No Other Gastrointestinal: No Nausea, No Vomiting, No Abdominal Pain, No Diarrhea, No Constipation, No Melena, No Hematochezia, No Other Genitourinary: No Dysuria, No Frequency, No Incontinence, No Hematuria, No Retention, No Other Musculoskeletal: No other, No neck pain, No shoulder pain, No arm pain, No back pain, No hand pain, No leg pain, No foot pain Skin: No Rash, No Lesions, No Jaundice, No Bruising, No Other Objective Vitals Vital Signs Date Time Temp Pulse Resp B/P (MAP) Pulse Ox O2 Delivery O2 Flow Rate FiO2 09/04/25 11:28 89 Nasal Cannula 2.0 09/04/25 11:28 28 09/04/25 11:28 105 16 09/04/25 08:40 98.3 96/52 (67) 98.3 Intake/Output Intake and Output 09/04/25 07:00 Intake Total 1905 ml Output Total 2125 ml Balance -220 ml Intake Oral 1755 ml IV Total 150 ml Output Urine Total 2125 ml General Appearance: Alert, Oriented X3, Cooperative HEENT: Atraumatic, PERRLA Lungs: Clear to auscultation, Normal air movement Cardiovascular: Normal S1, Normal S2 Abdomen: Normal bowel sounds, Soft, No tenderness Musculoskeletal: Normal sensory function, Normal motor function Skin: Dry, Intact Psych/Mental Status: Mental status NL, Mood NL Medications Current Medications Medications Dose Ordered Sig/Atilio Route Start Time Stop Time Status Last Admin Dose Admin Albuterol 2.5 mg Q6HWA NEB 08/31/25 06:00 09/04/25 11:28 2.5 MG Ipratropium [place] 0.5 mg Q6HWA NEB 08/31/25 06:00 09/04/25 11:28 0.5 MG Acetaminophen 650 mg Q6HR PO 08/31/25 00:00 09/04/25 11:57 650 MG Acetaminophen/ Hydrocodone Bitart 1 tab Q6HP PRN PO 08/30/25 21:45 09/04/25 06:14 1 TAB Enoxaparin Sodium 40 mg DAILY SC 08/31/25 10:00 09/04/25 09:24 40 MG Pantoprazole Sodium 40 mg DAILY@0600 PO 08/31/25 06:00 09/04/25 06:14 40 MG Ertapenem 1 gm/ Sodium Chloride 50 ml @ 100 mls/hr DAILY IV 09/02/25 10:00 09/04/25 09:23 100 MLS/HR Fluconazole 100 mg DAILY PO 09/02/25 10:00 09/04/25 09:24 100 MG Alprazolam 0.25 mg Q8HP PRN PO 09/02/25 09:45 09/02/25 23:35 0.25 MG Acetylcysteine 100 mg Q6HWA NEB 09/02/25 12:00 09/04/25 11:28 100 MG Morphine Sulfate 2 mg Q4HPRN PRN IV 09/02/25 22:00 Laboratory Results Laboratory Tests 09/04/25 09:30 Chemistry Test 09/04/25 09:30 Calcium Level 8.0 mg/dL (8.7-10.4) L Urinalysis Test 08/30/25 18:30 Urine Color Light-yellow (Yellow) Urine Clarity Clear (Clear) Urine pH 6.0 (5.0-9.0) Urine Specific [place] 1.009 (1.001-1.035) Urine Protein 1+ (Negative) H Urine Ketones Negative (Negative) Urine Blood Negative /uL (Negative) Urine Nitrite Negative (Negative) Urine Bilirubin Negative (Negative) Urine Urobilinogen Normal mg/dL (Negative) Urine Leukocyte Esterase 1+ /uL (Negative) Urine RBC 5 /hpf (0 - 4) Urine Microscopic WBC 12 /HPF (0-5) H Urine Squamous Epithelial Cells None seen /hpf (<5) Urine Bacteria None seen /hpf (None Seen) Urine Yeast (Budding) Occasional /hpf (None Urine Glucose Normal mg/dL (Normal) Urine Test Negative (Negative) Microbiology Microbiology Date/Time Source Procedure Growth Status 08/30/25 23:36 Nose MRSA Screen - Final Complete 08/30/25 21:24 Blood Blood Culture - Preliminary NO GROWTH AFTER 72 HOURS OF INCUBATION. Resulted 08/30/25 18:30 Voided Urine Urine Culture - Final Presumptive Emma albicans Complete Labs and/or images reviewed: Labs reviewed by me, Image(s) reviewed by me Assessment/Plan Assessment/Plan Impression: -acute on chronic respiratory failure -COPD with exacerbation -right lower lobe pneumonia -? 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 Patient's hypotension resolved. Patient is open to thoracentesis. Also discussed with the patient's son who is agreeable. White blood cell count improving. -pulmonary consultation: Discussed plan of care. -Continue abx -bronchodilators -Pulmicort -continue Plavix -PUD, DVT prophylaxis -Repeat labs Total time spent with patient discussing and formulating plan of care: 35 minutes. This medical document was created using an electronic medical record system with [employer] dictation system. Although this document has been carefully reviewed, there may still be some phonetic and typographical errors. These areas are purely typographical due to imperfections of the software programs, and do not reflect any compromise in the patient's medical care. Plan discussed with: Patient, Son, Other (RN) My Orders Orders - YULIA WEBB NP Procedure Category Date Status Time Chest Xray 1 View XY 09/04/25 Resulted 08:24 Date of Service: Sep 04, 2025 Billing Provider: YULIA WEBB NP Common Visit Codes: [id number] INP/OBS CARE(HIGH) YULIA WEBB NP Sep 04, 2025 12:26
[2025-09-05] VITALS (14 sets, daily range): BP systolic 96–105; BP diastolic 59–83; PULSE 91–107; RESP 16–95; TEMP 97.2–98.1; O2SAT 91–99
--- NOTE | 2025-09-05 08:59 | DVHPN2 ---
Subjective DOS: 09/04/2025 Patient seen and examined at bedside. Remains on supplemental oxygen Overnight events reviewed. Reviewed: Care Plan, H&P, Labs Changes from previous H/P or p: No Changes General: Per HPI Eyes: No Pain, No Vision change, No Conjunctivae inflammation, No Eyelid inflammation, No Other, No Redness ENT: No Ear pain, No Ear discharge, No Nose pain, No Nose discharge, No Nose congestion, No Mouth pain, No Mouth swelling, No Throat pain, No Throat swelling, No Other Cardiovascular: No Chest Pain, No Palpitations, No Orthopnea, No Paroxysmal Noc. Dyspnea, No Edema, No Lt Headedness, No Other Respiratory: No Cough, No Dry; Shortness of breath; No SOB with excertion, No Wheezing, No Hemoptysis, No Pleuritic Pain, No Sputum, No Other Gastrointestinal: No Nausea, No Vomiting, No Abdominal Pain, No Diarrhea, No Constipation, No Melena, No Hematochezia, No Other Genitourinary: No Dysuria, No Frequency, No Incontinence, No Hematuria, No Retention, No Other Musculoskeletal: No other, No neck pain, No shoulder pain, No arm pain, No back pain, No hand pain, No leg pain, No foot pain Skin: No Rash, No Lesions, No Jaundice, No Bruising, No Other Objective Vitals Vital Signs Date Time Temp Pulse Resp B/P (MAP) Pulse Ox O2 Delivery O2 Flow Rate FiO2 09/05/25 05:52 98 16 99 09/05/25 05:44 Nasal Cannula* 4 36 09/05/25 05:03 97.7 105/59 (74) 97.7 Intake/Output Intake and Output 09/05/25 07:00 Intake Total 940 ml Output Total 1850 ml Balance -910 ml Intake Oral 890 ml IV Total 50 ml Output Urine Total 1850 ml Exam Gen.: Patient lying in bed in no apparent distress. On supplemental oxygen. Head: Normocephalic, atraumatic. Eyes: EOMI/PERRLA. Ears: Normal hearing. Normal anatomy. Neck/trachea: Trachea midline, supple. Nose: Normal external anatomy. Mouth: Moist mucous membranes. Chest: Decreased air entry bilaterally. No wheezing or rhonchi. Cardiovascular: Positive S1, positive S2. Regular rate and rhythm. Abdomen: Positive bowel sounds in all 4 quadrants. Soft, non-tender, non- distended. : Deferred. Rectal: Deferred. Skin: Warm, dry. Intact. Extremities: 2+ radial pulses bilaterally. No lower extremity edema. Neuro: Awake, alert, oriented x3. No gross motor or sensory deficits. Cranial nerves II through XII intact. Gait not assessed. General Appearance: Alert, Oriented X3, Cooperative HEENT: Atraumatic, PERRLA Lungs: Clear to auscultation, Normal air movement Cardiovascular: Normal S1, Normal S2 Abdomen: Normal bowel sounds, Soft, No tenderness Musculoskeletal: Normal sensory function, Normal motor function Skin: Dry, Intact Psych/Mental Status: Mental status NL, Mood NL Medications Current Medications Medications Dose Ordered Sig/Atilio Route Start Time Stop Time Status Last Admin Dose Admin Albuterol 2.5 mg Q6HWA NEB 08/31/25 06:00 09/05/25 05:43 2.5 MG Ipratropium [place] 0.5 mg Q6HWA NEB 08/31/25 06:00 09/05/25 05:43 0.5 MG Acetaminophen 650 mg Q6HR PO 08/31/25 00:00 09/05/25 05:45 650 MG Acetaminophen/ Hydrocodone Bitart 1 tab Q6HP PRN PO 08/30/25 21:45 09/04/25 19:57 1 TAB Enoxaparin Sodium 40 mg DAILY SC 08/31/25 10:00 09/04/25 09:24 40 MG Pantoprazole Sodium 40 mg DAILY@0600 PO 08/31/25 06:00 09/05/25 05:45 40 MG Ertapenem 1 gm/ Sodium Chloride 50 ml @ 100 mls/hr DAILY IV 09/02/25 10:00 09/04/25 09:23 100 MLS/HR Fluconazole 100 mg DAILY PO 09/02/25 10:00 09/04/25 09:24 100 MG Alprazolam 0.25 mg Q8HP PRN PO 09/02/25 09:45 09/05/25 03:41 0.25 MG Acetylcysteine 100 mg Q6HWA NEB 09/02/25 12:00 09/05/25 05:44 100 MG Morphine Sulfate 2 mg Q4HPRN PRN IV 09/02/25 22:00 Laboratory Results Laboratory Tests 09/04/25 09:30 Chemistry Test 09/04/25 09:30 Calcium Level 8.0 mg/dL (8.7-10.4) L Urinalysis Test 08/30/25 18:30 Urine Color Light-yellow (Yellow) Urine Clarity Clear (Clear) Urine pH 6.0 (5.0-9.0) Urine Specific [place] 1.009 (1.001-1.035) Urine Protein 1+ (Negative) H Urine Ketones Negative (Negative) Urine Blood Negative /uL (Negative) Urine Nitrite Negative (Negative) Urine Bilirubin Negative (Negative) Urine Urobilinogen Normal mg/dL (Negative) Urine Leukocyte Esterase 1+ /uL (Negative) Urine RBC 5 /hpf (0 - 4) Urine Microscopic WBC 12 /HPF (0-5) H Urine Squamous Epithelial Cells None seen /hpf (<5) Urine Bacteria None seen /hpf (None Seen) Urine Yeast (Budding) Occasional /hpf (None Urine Glucose Normal mg/dL (Normal) Urine Test Negative (Negative) Microbiology Microbiology Date/Time Source Procedure Growth Status 08/30/25 23:36 Nose MRSA Screen - Final Complete 08/30/25 21:24 Blood Blood Culture - Final NO GROWTH AFTER 5 DAYS OF INCUBATION. Complete 08/30/25 18:30 Voided Urine Urine Culture - Final Presumptive Emma albicans Complete Assessment/Plan Assessment/Plan Impression: Acute hypoxic respiratory failure Pneumonia, likely GNR Pleural effusion Atelectasis Emphysema Hx of nicotine dependence Events: Remains on supplemental oxygen, 2 LPM NC Taper O2 as tolerated CXR today reviewed, demonstrates multifocal airspace disease. Reviewed CT chest with [employer]ECUT[employer]NAGER Sallucy. Patient has right lower lobe consolidation Patient has deferred bronchoscopy and lung biopsy. Continue bronchodilators Mucomyst Continue antibiotics - complete course WBC trending down, 11.5 K Continue antifungal Incentive spirometry F/u cultures Hemoglobin is currently 8.3 g/dL Monitor hemoglobin Transfuse if less than 7.0 g/dL. Nutritional support Overall prognosis is poor At risk for malignancy. Labs and imaging reviewed. Rest of plan as noted below. Plan: Supplemental oxygen Titrate to keep O2 sats above 92%. Chest CT reviewed from 09/01: Small [id number]-left pleural effusion with adjacent opacity. Superimposed infectious/inflammatory process cannot be excluded. 3.8 cm oval-shaped intermediate density opacity abuts the right pleural effusion. Emphysema. Obtain limited chest ultrasound to evaluate if pleural effusion amenable for thoracentesis. Continue bronchodilators Mucomyst Continue antibiotics/antifungals Incentive spirometry WBC count improving. Diurese with Lasix as tolerated Monitor renal function. Monitor electrolytes. Supplement as necessary. Monitor ins and outs. GI prophylaxis - Protonix DVT prophylaxis - Lovenox. Prognosis: Poor given patient's multiple co-morbidities. Rest of plan per hospitalist and other consultants. Thank you, WENDY Castelan, for allowing me to participate in this patient's care. Further recommendations will depend on the patient's clinical course. Please do not hesitate to contact me if you have any questions or concerns. This medical document was created using an electronic medical record system with [employer] dictation system. Although these documentations are being carefully reviewed, there may still be some phonetic and typographical changes. The errors are purely typographical, due to imperfection on the software program, and do not reflect any compromise in the patient's medical care. Plan discussed with: Patient, Other (RN) Visit Coding Pulmonary Billing Provider: CANDIDA MCKEON MD Date of Service if different f: Sep 04, 2025 Common Visit Codes: [id number] INP/OBS CARE(HIGH) CANDIDA MCKEON MD Sep 05, 2025 08:59
--- NOTE | 2025-09-05 12:22 | DVHPN2 ---
Reviewed: Care Plan, H&P, Labs Changes from previous H/P or p: No Changes General: Per HPI Eyes: No Pain, No Vision change, No Conjunctivae inflammation, No Eyelid inflammation, No Other, No Redness ENT: No Ear pain, No Ear discharge, No Nose pain, No Nose discharge, No Nose congestion, No Mouth pain, No Mouth swelling, No Throat pain, No Throat swelling, No Other Cardiovascular: No Chest Pain, No Palpitations, No Orthopnea, No Paroxysmal Noc. Dyspnea, No Edema, No Lt Headedness, No Other Respiratory: No Cough, No Dry; Shortness of breath; No SOB with excertion, No Wheezing, No Hemoptysis, No Pleuritic Pain, No Sputum, No Other Gastrointestinal: No Nausea, No Vomiting, No Abdominal Pain, No Diarrhea, No Constipation, No Melena, No Hematochezia, No Other Genitourinary: No Dysuria, No Frequency, No Incontinence, No Hematuria, No Retention, No Other Musculoskeletal: No other, No neck pain, No shoulder pain, No arm pain, No back pain, No hand pain, No leg pain, No foot pain Skin: No Rash, No Lesions, No Jaundice, No Bruising, No Other Objective Vitals Vital Signs Date Time Temp Pulse Resp B/P (MAP) Pulse Ox O2 Delivery O2 Flow Rate FiO2 09/05/25 11:25 100 16 98 09/05/25 11:18 Nasal Cannula 3.0 09/05/25 11:18 32 09/05/25 09:00 98.0 101/63 (76) 98.0 Intake/Output Intake and Output 09/05/25 07:00 Intake Total 940 ml Output Total 1850 ml Balance -910 ml Intake Oral 890 ml IV Total 50 ml Output Urine Total 1850 ml General Appearance: Alert, Oriented X3, Cooperative HEENT: Atraumatic, PERRLA Lungs: Clear to auscultation, Normal air movement Cardiovascular: Normal S1, Normal S2 Abdomen: Normal bowel sounds, Soft, No tenderness Musculoskeletal: Normal sensory function, Normal motor function Skin: Dry, Intact Psych/Mental Status: Mental status NL, Mood NL Medications Current Medications Medications Dose Ordered Sig/Atilio Route Start Time Stop Time Status Last Admin Dose Admin Albuterol 2.5 mg Q6HWA NEB 08/31/25 06:00 09/05/25 11:17 2.5 MG Ipratropium [place] 0.5 mg Q6HWA NEB 08/31/25 06:00 09/05/25 11:17 0.5 MG Acetaminophen 650 mg Q6HR PO 08/31/25 00:00 09/05/25 11:34 650 MG Acetaminophen/ Hydrocodone Bitart 1 tab Q6HP PRN PO 08/30/25 21:45 09/05/25 09:55 1 TAB Enoxaparin Sodium 40 mg DAILY SC 08/31/25 10:00 09/05/25 09:44 40 MG Pantoprazole Sodium 40 mg DAILY@0600 PO 08/31/25 06:00 09/05/25 05:45 40 MG Ertapenem 1 gm/ Sodium Chloride 50 ml @ 100 mls/hr DAILY IV 09/02/25 10:00 09/05/25 09:43 100 MLS/HR Fluconazole 100 mg DAILY PO 09/02/25 10:00 09/05/25 09:43 100 MG Alprazolam 0.25 mg Q8HP PRN PO 09/02/25 09:45 09/05/25 03:41 0.25 MG Acetylcysteine 100 mg Q6HWA NEB 09/02/25 12:00 09/05/25 11:17 100 MG Morphine Sulfate 2 mg Q4HPRN PRN IV 09/02/25 22:00 Laboratory Results Laboratory Tests 09/04/25 09:30 Urinalysis Test 08/30/25 18:30 Urine Color Light-yellow (Yellow) Urine Clarity Clear (Clear) Urine pH 6.0 (5.0-9.0) Urine Specific [place] 1.009 (1.001-1.035) Urine Protein 1+ (Negative) H Urine Ketones Negative (Negative) Urine Blood Negative /uL (Negative) Urine Nitrite Negative (Negative) Urine Bilirubin Negative (Negative) Urine Urobilinogen Normal mg/dL (Negative) Urine Leukocyte Esterase 1+ /uL (Negative) Urine RBC 5 /hpf (0 - 4) Urine Microscopic WBC 12 /HPF (0-5) H Urine Squamous Epithelial Cells None seen /hpf (<5) Urine Bacteria None seen /hpf (None Seen) Urine Yeast (Budding) Occasional /hpf (None Urine Glucose Normal mg/dL (Normal) Urine Test Negative (Negative) Microbiology Microbiology Date/Time Source Procedure Growth Status 08/30/25 23:36 Nose MRSA Screen - Final Complete 08/30/25 21:24 Blood Blood Culture - Final NO GROWTH AFTER 5 DAYS OF INCUBATION. Complete 08/30/25 18:30 Voided Urine Urine Culture - Final Presumptive Emma albicans Complete Labs and/or images reviewed: Labs reviewed by me, Image(s) reviewed by me Assessment/Plan Assessment/Plan Covering For nurse practitioner José Castelan Acute on chronic respiratory failure COPD exacerbation Right lower lobe pneumonia community-acquired ESBL in the urine Sepsis secondary to urinary tract infection Cachexia Hypertension Chronic current smoker Hypercholesterolemia CAD with a stents History of aortic valve replacement DANICA Heller at bedside Continue current management Time spent 50 minutes - Plan discussed with: Patient Date of Service: Sep 05, 2025 Billing Provider: WINIFRED DO MD Common Visit Codes: [id number] INP/OBS CARE(HIGH) WINIFRED DO MD Sep 05, 2025 12:22
--- NOTE | 2025-09-05 16:25 | DVHNC2 ---
Procedure - INDICATION: Pleural effusion PROCEDURE BRANCH DIRECTOR: Resident Eddie ATTENDING PHYSICIAN: Dr. Sterling CONSENT: During the informed consent discussion regarding the procedure, or treatment, I explained the following to the patient/designee: a. Nature of the procedure or treatment and who will perform the procedure or treatment. b. Necessity for procedure and the possible benefits. c. Risks and complications (most common and serious). d. Alternative treatments and the risks, benefits and side effects of each (including no treatment). e. Likelihood of the patient achieving his/her goals without this procedure and surgery treatment. f. Problems that might occur during the recuperation. g. Conflicts of interest, if any PROCEDURE SUMMARY: A time out was performed and the chest x-ray was reviewed, the appropriate side was confirmed and marked. My hands were washed immediately prior to the procedure. I wore a surgical cap, mask with protective eyewear, sterile gown and sterile gloves throughout the procedure. The patient was prepped and draped in a sterile manner using chlorhexidine scrub after the appropriate level was percussed and confirmed by ultrasound. 1% lidocaine was used to anesthesize the skin, subcutaneous tissue, superior aspect of the rib periosteum and parietal pleura. A finder needle was then introduced over the superior aspect of the rib to locate the pleural fluid; straw coloured colored fluid was aspirated at a depth of approximately 2 cm. The Deca-j-Pghnqhaf needle was then introduced through the skin incision into the pleural space using negative aspiration pre ssure and the red colormetric indicator to confirm appropriate positioning of the needle. The thoracentesis catheter was then threaded without difficulty. 300 ml of sanguineous/straw colored fluid was removed without difficulty. The catheter was then removed. No immediate complications were noted during the procedure. A post-procedure chest x-ray is pending at the time of this note as pt refusing any imaging. The fluid will be sent for studies. Estimated blood loss is less than 5ml ALISHA OSEI Sep 05, 2025 16:25
[2025-09-05] MEDS: Ensure HIGH Protein Chocolate 8oz Bottle PO SCH (18:00)
[2025-09-06] VITALS (13 sets, daily range): BP systolic 99–122; BP diastolic 59–87; PULSE 89–110; RESP 15–20; TEMP 97.8–98; O2SAT 94–100
--- NOTE | 2025-09-06 09:32 | DVHPN2 ---
Reviewed: Care Plan, H&P, Labs Changes from previous H/P or p: No Changes General: Per HPI Eyes: No Pain, No Vision change, No Conjunctivae inflammation, No Eyelid inflammation, No Other, No Redness ENT: No Ear pain, No Ear discharge, No Nose pain, No Nose discharge, No Nose congestion, No Mouth pain, No Mouth swelling, No Throat pain, No Throat swelling, No Other Cardiovascular: No Chest Pain, No Palpitations, No Orthopnea, No Paroxysmal Noc. Dyspnea, No Edema, No Lt Headedness, No Other Respiratory: No Cough, No Dry; Shortness of breath; No SOB with excertion, No Wheezing, No Hemoptysis, No Pleuritic Pain, No Sputum, No Other Gastrointestinal: No Nausea, No Vomiting, No Abdominal Pain, No Diarrhea, No Constipation, No Melena, No Hematochezia, No Other Genitourinary: No Dysuria, No Frequency, No Incontinence, No Hematuria, No Retention, No Other Musculoskeletal: No other, No neck pain, No shoulder pain, No arm pain, No back pain, No hand pain, No leg pain, No foot pain Skin: No Rash, No Lesions, No Jaundice, No Bruising, No Other Objective Vitals Vital Signs Date Time Temp Pulse Resp B/P (MAP) Pulse Ox O2 Delivery O2 Flow Rate FiO2 09/06/25 08:51 97.9 97 17 99/59 (72) 99 97.9 09/06/25 05:51 Nasal Cannula* 4 36 Intake/Output Intake and Output 09/06/25 07:00 Intake Total 1645 ml Output Total 1850 ml Balance -205 ml Intake Oral 1595 ml IV Total 50 ml Output Urine Total 1850 ml General Appearance: Alert, Oriented X3, Cooperative HEENT: Atraumatic, PERRLA Lungs: Clear to auscultation, Normal air movement Cardiovascular: Normal S1, Normal S2 Abdomen: Normal bowel sounds, Soft, No tenderness Musculoskeletal: Normal sensory function, Normal motor function Skin: Dry, Intact Psych/Mental Status: Mental status NL, Mood NL Medications Current Medications Medications Dose Ordered Sig/Atilio Route Start Time Stop Time Status Last Admin Dose Admin Albuterol 2.5 mg Q6HWA [facility] 08/31/25 06:00 09/06/25 05:50 2.5 MG Ipratropium [place] 0.5 mg Q6HWA [facility] 08/31/25 06:00 09/06/25 05:50 0.5 MG Acetaminophen 650 mg Q6HR PO 08/31/25 00:00 09/06/25 06:44 650 MG Acetaminophen/ Hydrocodone Bitart 1 tab Q6HP PRN PO 08/30/25 21:45 09/06/25 01:56 1 TAB Enoxaparin Sodium 40 mg DAILY SC 08/31/25 10:00 09/05/25 09:44 40 MG Pantoprazole Sodium 40 mg DAILY@0600 PO 08/31/25 06:00 09/06/25 06:43 40 MG Ertapenem 1 gm/ Sodium Chloride 50 ml @ 100 mls/hr DAILY IV 09/02/25 10:00 09/05/25 09:43 100 MLS/HR Fluconazole 100 mg DAILY PO 09/02/25 10:00 09/05/25 09:43 100 MG Alprazolam 0.25 mg Q8HP PRN PO 09/02/25 09:45 09/05/25 03:41 0.25 MG Acetylcysteine 100 mg Q6HWA [facility] 09/02/25 12:00 09/06/25 05:50 100 MG Morphine Sulfate 2 mg Q4HPRN PRN IV 09/02/25 22:00 Enteral Nutritional Formula 240 ml BIDWM PO 09/05/25 18:00 09/05/25 18:00 240 ML Laboratory Results Laboratory Tests 09/04/25 09:30 Urinalysis Test 08/30/25 18:30 Urine Color Light-yellow (Yellow) Urine Clarity Clear (Clear) Urine pH 6.0 (5.0-9.0) Urine Specific [place] 1.009 (1.001-1.035) Urine Protein 1+ (Negative) H Urine Ketones Negative (Negative) Urine Blood Negative /uL (Negative) Urine Nitrite Negative (Negative) Urine Bilirubin Negative (Negative) Urine Urobilinogen Normal mg/dL (Negative) Urine Leukocyte Esterase 1+ /uL (Negative) Urine RBC 5 /hpf (0 - 4) Urine Microscopic WBC 12 /HPF (0-5) H Urine Squamous Epithelial Cells None seen /hpf (<5) Urine Bacteria None seen /hpf (None Seen) Urine Yeast (Budding) Occasional /hpf (None Urine Glucose Normal mg/dL (Normal) Urine Test Negative (Negative) Microbiology Microbiology Date/Time Source Procedure Growth Status 08/30/25 23:36 Nose MRSA Screen - Final Complete 08/30/25 21:24 Blood Blood Culture - Final NO GROWTH AFTER 5 DAYS OF INCUBATION. Complete 08/30/25 18:30 Voided Urine Urine Culture - Final Presumptive Emma albicans Complete Labs and/or images reviewed: Labs reviewed by me, Image(s) reviewed by me Assessment/Plan Assessment/Plan Covering For nurse practitioner José Castelan Acute on chronic respiratory failure COPD exacerbation Right lower lobe pneumonia community-acquired ESBL in the urine continue Invanz Sepsis secondary to urinary tract infection Cachexia Hypertension Yeast in the urine: Diflucan Chronic current smoker Hypercholesterolemia CAD with a stents History of aortic valve replacement DANICA Heller at bedside General condition very poor Continue current management Time spent 50 minutes - Plan discussed with: Patient My Orders Orders - WINIFRED DO MD Procedure Category Date Status Time Nutritional PHA 09/05/25 In Process Supplements (Ensure 18:00 Date of Service: Sep 06, 2025 Billing Provider: WINIFRED DO MD Common Visit Codes: [id number] INP/OBS CARE(HIGH) WINIFRED DO MD Sep 06, 2025 09:32
[2025-09-06] MEDS: FLUCONAZOLE 200MG/100ML 100 ML IV SCH (09:48)
--- NOTE | 2025-09-06 11:52 | MEDREC ---
[facility] Intervention Section I [facility] Intervention: Review courses of therapy (PLEASE CONSIDER D/C ERTAPENEM - COURSE OF THERAPY COMPLETE ) PIERO SANABRIA PHARMACIST Sep 06, 2025 11:52
--- NOTE | 2025-09-06 23:42 | DVHPN2 ---
Subjective DOS: 09/06/2025 Patient seen and examined at bedside. Remains on supplemental oxygen Overnight events reviewed. Reviewed: Care Plan, H&P, Labs Changes from previous H/P or p: No Changes General: Per HPI Eyes: No Pain, No Vision change, No Conjunctivae inflammation, No Eyelid inflammation, No Other, No Redness ENT: No Ear pain, No Ear discharge, No Nose pain, No Nose discharge, No Nose congestion, No Mouth pain, No Mouth swelling, No Throat pain, No Throat swelling, No Other Cardiovascular: No Chest Pain, No Palpitations, No Orthopnea, No Paroxysmal Noc. Dyspnea, No Edema, No Lt Headedness, No Other Respiratory: No Cough, No Dry; Shortness of breath; No SOB with excertion, No Wheezing, No Hemoptysis, No Pleuritic Pain, No Sputum, No Other Gastrointestinal: No Nausea, No Vomiting, No Abdominal Pain, No Diarrhea, No Constipation, No Melena, No Hematochezia, No Other Genitourinary: No Dysuria, No Frequency, No Incontinence, No Hematuria, No Retention, No Other Musculoskeletal: No other, No neck pain, No shoulder pain, No arm pain, No back pain, No hand pain, No leg pain, No foot pain Skin: No Rash, No Lesions, No Jaundice, No Bruising, No Other Objective Vitals Vital Signs Date Time Temp Pulse Resp B/P (MAP) Pulse Ox O2 Delivery O2 Flow Rate FiO2 09/06/25 21:00 97.8 99 18 109/61 (77) 95 97.8 09/06/25 20:00 Nasal Cannula* 4 36 Intake/Output Intake and Output 09/06/25 07:00 Intake Total 1645 ml Output Total 1850 ml Balance -205 ml Intake Oral 1595 ml IV Total 50 ml Output Urine Total 1850 ml Exam Gen.: Patient lying in bed in no apparent distress. On supplemental oxygen. Head: Normocephalic, atraumatic. Eyes: EOMI/PERRLA. Ears: Normal hearing. Normal anatomy. Neck/trachea: Trachea midline, supple. Nose: Normal external anatomy. Mouth: Moist mucous membranes. Chest: Decreased air entry bilaterally. No wheezing or rhonchi. Cardiovascular: Positive S1, positive S2. Regular rate and rhythm. Abdomen: Positive bowel sounds in all 4 quadrants. Soft, non-tender, non- distended. : Deferred. Rectal: Deferred. Skin: Warm, dry. Intact. Extremities: 2+ radial pulses bilaterally. No lower extremity edema. Neuro: Awake, alert, oriented x3. No gross motor or sensory deficits. Cranial nerves II through XII intact. Gait not assessed. General Appearance: Alert, Oriented X3, Cooperative HEENT: Atraumatic, PERRLA Lungs: Clear to auscultation, Normal air movement Cardiovascular: Normal S1, Normal S2 Abdomen: Normal bowel sounds, Soft, No tenderness Musculoskeletal: Normal sensory function, Normal motor function Skin: Dry, Intact Psych/Mental Status: Mental status NL, Mood NL Medications Current Medications Medications Dose Ordered Sig/Atilio Route Start Time Stop Time Status Last Admin Dose Admin Albuterol 2.5 mg Q6HWA [facility] 08/31/25 06:00 09/06/25 18:51 2.5 MG Ipratropium [place] 0.5 mg Q6HWA [facility] 08/31/25 06:00 09/06/25 18:51 0.5 MG Acetaminophen 650 mg Q6HR PO 08/31/25 00:00 09/06/25 18:30 650 MG Acetaminophen/ Hydrocodone Bitart 1 tab Q6HP PRN PO 08/30/25 21:45 09/06/25 21:19 1 TAB Enoxaparin Sodium 40 mg DAILY SC 08/31/25 10:00 09/06/25 09:38 40 MG Pantoprazole Sodium 40 mg DAILY@0600 PO 08/31/25 06:00 09/06/25 06:43 40 MG Ertapenem 1 gm/ Sodium Chloride 50 ml @ 100 mls/hr DAILY IV 09/02/25 10:00 09/06/25 14:06 100 MLS/HR Alprazolam 0.25 mg Q8HP PRN PO 09/02/25 09:45 09/05/25 03:41 0.25 MG Acetylcysteine 100 mg Q6HWA [facility] 09/02/25 12:00 09/06/25 18:51 100 MG Morphine Sulfate 2 mg Q4HPRN PRN IV 09/02/25 22:00 Enteral Nutritional Formula 240 ml BIDWM PO 09/05/25 18:00 09/06/25 18:00 240 ML Fluconazole 100 ml @ 100 mls/hr DAILY IV 09/06/25 10:00 09/06/25 09:48 100 MLS/HR Laboratory Results Laboratory Tests 09/04/25 09:30 Urinalysis Test 08/30/25 18:30 Urine Color Light-yellow (Yellow) Urine Clarity Clear (Clear) Urine pH 6.0 (5.0-9.0) Urine Specific [place] 1.009 (1.001-1.035) Urine Protein 1+ (Negative) H Urine Ketones Negative (Negative) Urine Blood Negative /uL (Negative) Urine Nitrite Negative (Negative) Urine Bilirubin Negative (Negative) Urine Urobilinogen Normal mg/dL (Negative) Urine Leukocyte Esterase 1+ /uL (Negative) Urine RBC 5 /hpf (0 - 4) Urine Microscopic WBC 12 /HPF (0-5) H Urine Squamous Epithelial Cells None seen /hpf (<5) Urine Bacteria None seen /hpf (None Seen) Urine Yeast (Budding) Occasional /hpf (None Urine Glucose Normal mg/dL (Normal) Urine Test Negative (Negative) Microbiology Microbiology Date/Time Source Procedure Growth Status 09/05/25 16:52 Pleural Fluid Gram Stain - Final Resulted 09/05/25 16:52 Pleural Fluid Body Fluid Culture - Preliminary No growth Resulted 08/30/25 23:36 Nose MRSA Screen - Final Complete 08/30/25 21:24 Blood Blood Culture - Final NO GROWTH AFTER 5 DAYS OF INCUBATION. Complete 08/30/25 18:30 Voided Urine Urine Culture - Final Presumptive Emma albicans Complete Assessment/Plan Assessment/Plan Impression: Acute hypoxic respiratory failure Pneumonia, likely GNR Pleural effusion Atelectasis Emphysema Hx of nicotine dependence Events: Remains on supplemental oxygen, 4 LPM NC Taper O2 as tolerated S/p right thoracentesis on 09/05/25 with 300 ml of sanguineous/straw colored fluid removed. 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 Patient has right lower lobe consolidation Patient has deferred bronchoscopy and lung biopsy. Continue bronchodilators Mucomyst Continue antibiotics - complete course Monitor WBC Continue antifungal Incentive spirometry F/u cultures Monitor hemoglobin Transfuse if less than 7.0 g/dL. Nutritional support Overall prognosis is poor At risk for malignancy. Labs and imaging reviewed. Rest of plan as noted below. Plan: Supplemental oxygen Titrate to keep O2 sats above 92%. Chest CT reviewed from 09/01: Small [id number]-left pleural effusion with adjacent opacity. Superimposed infectious/inflammatory process cannot be excluded. 3.8 cm oval-shaped intermediate density opacity abuts the right pleural effusion. Emphysema. S/p right thoracentesis. Continue bronchodilators Mucomyst Continue antibiotics/antifungals Incentive spirometry WBC count improving. Monitor renal function. Monitor electrolytes. Supplement as necessary. Monitor ins and outs. Maintain euvolemia GI prophylaxis - Protonix DVT prophylaxis - Lovenox. Prognosis: Poor given patient's multiple co-morbidities. Rest of plan per hospitalist and other consultants. Thank you, WENDY Castelan, for allowing me to participate in this patient's care. Further recommendations will depend on the patient's clinical course. Please do not hesitate to contact me if you have any questions or concerns. This medical document was created using an electronic medical record system with [employer] dictation system. Although these documentations are being carefully reviewed, there may still be some phonetic and typographical changes. The errors are purely typographical, due to imperfection on the software program, and do not reflect any compromise in the patient's medical care. Plan discussed with: Patient, Other (DANICA Heller) Visit Coding Pulmonary Billing Provider: CANDIDA MCKEON MD Date of Service if different f: Sep 06, 2025 Common Visit Codes: [id number] INP/OBS CARE(HIGH) CANDIDA MCKEON MD Sep 06, 2025 23:42
[2025-09-07] VITALS (13 sets, daily range): BP systolic 95–124; BP diastolic 50–79; PULSE 70–103; RESP 16–18; TEMP 97.7–98.4; O2SAT 93–100
--- NOTE | 2025-09-07 04:55 | DVHPN2 ---
Subjective DOS: 09/05/2025 Patient seen and examined at bedside. Remains on supplemental oxygen Overnight events reviewed. Reviewed: Care Plan, H&P, Labs Changes from previous H/P or p: No Changes General: Per HPI Eyes: No Pain, No Vision change, No Conjunctivae inflammation, No Eyelid inflammation, No Other, No Redness ENT: No Ear pain, No Ear discharge, No Nose pain, No Nose discharge, No Nose congestion, No Mouth pain, No Mouth swelling, No Throat pain, No Throat swelling, No Other Cardiovascular: No Chest Pain, No Palpitations, No Orthopnea, No Paroxysmal Noc. Dyspnea, No Edema, No Lt Headedness, No Other Respiratory: No Cough, No Dry; Shortness of breath; No SOB with excertion, No Wheezing, No Hemoptysis, No Pleuritic Pain, No Sputum, No Other Gastrointestinal: No Nausea, No Vomiting, No Abdominal Pain, No Diarrhea, No Constipation, No Melena, No Hematochezia, No Other Genitourinary: No Dysuria, No Frequency, No Incontinence, No Hematuria, No Retention, No Other Musculoskeletal: No other, No neck pain, No shoulder pain, No arm pain, No back pain, No hand pain, No leg pain, No foot pain Skin: No Rash, No Lesions, No Jaundice, No Bruising, No Other Objective Vitals Vital Signs Date Time Temp Pulse Resp B/P (MAP) Pulse Ox O2 Delivery O2 Flow Rate FiO2 09/07/25 01:00 97.7 98 18 95/54 (68) 93 97.7 09/06/25 20:00 Nasal Cannula* 4 36 Intake/Output Intake and Output 09/07/25 07:00 Intake Total 1100 ml Output Total 1101 ml Balance -1 ml Intake Oral 950 ml IV Total 150 ml Output Urine Total 1100 ml Stool Total 1 ml Exam Gen.: Patient lying in bed in no apparent distress. On supplemental oxygen. Head: Normocephalic, atraumatic. Eyes: EOMI/PERRLA. Ears: Normal hearing. Normal anatomy. Neck/trachea: Trachea midline, supple. Nose: Normal external anatomy. Mouth: Moist mucous membranes. Chest: Decreased air entry bilaterally. No wheezing or rhonchi. Cardiovascular: Positive S1, positive S2. Regular rate and rhythm. Abdomen: Positive bowel sounds in all 4 quadrants. Soft, non-tender, non- distended. : Deferred. Rectal: Deferred. Skin: Warm, dry. Intact. Extremities: 2+ radial pulses bilaterally. No lower extremity edema. Neuro: Awake, alert, oriented x3. No gross motor or sensory deficits. Cranial nerves II through XII intact. Gait not assessed. General Appearance: Alert, Oriented X3, Cooperative HEENT: Atraumatic, PERRLA Lungs: Clear to auscultation, Normal air movement Cardiovascular: Normal S1, Normal S2 Abdomen: Normal bowel sounds, Soft, No tenderness Musculoskeletal: Normal sensory function, Normal motor function Skin: Dry, Intact Psych/Mental Status: Mental status NL, Mood NL Medications Current Medications Medications Dose Ordered Sig/Atilio Route Start Time Stop Time Status Last Admin Dose Admin Albuterol 2.5 mg Q6HWA [facility] 08/31/25 06:00 09/06/25 18:51 2.5 MG Ipratropium [place] 0.5 mg Q6HWA [facility] 08/31/25 06:00 09/06/25 18:51 0.5 MG Acetaminophen 650 mg Q6HR PO 08/31/25 00:00 09/06/25 18:30 650 MG Acetaminophen/ Hydrocodone Bitart 1 tab Q6HP PRN PO 08/30/25 21:45 09/06/25 21:19 1 TAB Enoxaparin Sodium 40 mg DAILY SC 08/31/25 10:00 09/06/25 09:38 40 MG Pantoprazole Sodium 40 mg DAILY@0600 PO 08/31/25 06:00 09/06/25 06:43 40 MG Ertapenem 1 gm/ Sodium Chloride 50 ml @ 100 mls/hr DAILY IV 09/02/25 10:00 09/06/25 14:06 100 MLS/HR Alprazolam 0.25 mg Q8HP PRN PO 09/02/25 09:45 09/05/25 03:41 0.25 MG Acetylcysteine 100 mg Q6HWA [facility] 09/02/25 12:00 09/06/25 18:51 100 MG Morphine Sulfate 2 mg Q4HPRN PRN IV 09/02/25 22:00 Enteral Nutritional Formula 240 ml BIDWM PO 09/05/25 18:00 09/06/25 18:00 240 ML Fluconazole 100 ml @ 100 mls/hr DAILY IV 09/06/25 10:00 09/06/25 09:48 100 MLS/HR Laboratory Results Laboratory Tests 09/04/25 09:30 Urinalysis Test 08/30/25 18:30 Urine Color Light-yellow (Yellow) Urine Clarity Clear (Clear) Urine pH 6.0 (5.0-9.0) Urine Specific [place] 1.009 (1.001-1.035) Urine Protein 1+ (Negative) H Urine Ketones Negative (Negative) Urine Blood Negative /uL (Negative) Urine Nitrite Negative (Negative) Urine Bilirubin Negative (Negative) Urine Urobilinogen Normal mg/dL (Negative) Urine Leukocyte Esterase 1+ /uL (Negative) Urine RBC 5 /hpf (0 - 4) Urine Microscopic WBC 12 /HPF (0-5) H Urine Squamous Epithelial Cells None seen /hpf (<5) Urine Bacteria None seen /hpf (None Seen) Urine Yeast (Budding) Occasional /hpf (None Urine Glucose Normal mg/dL (Normal) Urine Test Negative (Negative) Microbiology Microbiology Date/Time Source Procedure Growth Status 09/05/25 16:52 Pleural Fluid Gram Stain - Final Resulted 09/05/25 16:52 Pleural Fluid Body Fluid Culture - Preliminary No growth Resulted 08/30/25 23:36 Nose MRSA Screen - Final Complete 08/30/25 21:24 Blood Blood Culture - Final NO GROWTH AFTER 5 DAYS OF INCUBATION. Complete 08/30/25 18:30 Voided Urine Urine Culture - Final Presumptive Emma albicans Complete Assessment/Plan Assessment/Plan Impression: Acute hypoxic respiratory failure Pneumonia, likely GNR Pleural effusion Atelectasis Emphysema Hx of nicotine dependence Events: Remains on supplemental oxygen, 3 LPM NC Taper O2 as tolerated S/p right thoracentesis today with 300 ml of sanguineous/straw colored fluid removed. 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 Patient has right lower lobe consolidation Patient has deferred bronchoscopy and lung biopsy. Continue bronchodilators Mucomyst Continue antibiotics - complete course Monitor WBC Continue antifungal Incentive spirometry F/u cultures Monitor hemoglobin Transfuse if less than 7.0 g/dL. Nutritional support Overall prognosis is poor At risk for malignancy. Labs and imaging reviewed. Rest of plan as noted below. Plan: Supplemental oxygen Titrate to keep O2 sats above 92%. Chest CT reviewed from 09/01: Small [id number]-left pleural effusion with adjacent opacity. Superimposed infectious/inflammatory process cannot be excluded. 3.8 cm oval-shaped intermediate density opacity abuts the right pleural effusion. Emphysema. S/p right thoracentesis. Continue bronchodilators Mucomyst Continue antibiotics/antifungals Incentive spirometry WBC count improving. Monitor renal function. Monitor electrolytes. Supplement as necessary. Monitor ins and outs. Maintain euvolemia GI prophylaxis - Protonix DVT prophylaxis - Lovenox. Prognosis: Poor given patient's multiple co-morbidities. Rest of plan per hospitalist and other consultants. Thank you, WENDY Castelan, for allowing me to participate in this patient's care. Further recommendations will depend on the patient's clinical course. Please do not hesitate to contact me if you have any questions or concerns. This medical document was created using an electronic medical record system with [employer] dictation system. Although these documentations are being carefully reviewed, there may still be some phonetic and typographical changes. The errors are purely typographical, due to imperfection on the software program, and do not reflect any compromise in the patient's medical care. Plan discussed with: Patient, Other (RN) Visit Coding Pulmonary Billing Provider: CANDIDA MCKEON MD Date of Service if different f: Sep 05, 2025 Common Visit Codes: [id number] INP/OBS CARE(HIGH) CANDIDA MCKEON MD Sep 07, 2025 04:55
--- NOTE | 2025-09-07 09:08 | DVH ---
CHEST RADIOGRAPH INDICATION: pna TECHNIQUE: Single frontal view of the chest was obtained COMPARISON: XY CHEST XRAY 1 VIEW on DOS: 09/04/25, CT CHEST WITHOUT CONTRAST on DOS: 09/01/25, XY CHEST XRAY 1 VIEW on DOS: 08/30/25, XY CHEST XRAY 1 VIEW on DOS: 08/27/25, XY CHEST XRAY 1 VIEW on DOS: 08/24/25 FINDINGS: Lines and Tubes: None Lungs: Multifocal airspace disease again noted. No significant change. No effusions. No pneumothorax. Cardiomediastinal contours: Unremarkable Bones: No acute osseous abnormality. IMPRESSION: 1. No significant change in multifocal airspace disease.
--- NOTE | 2025-09-07 09:08 | DVHPN2 ---
Subjective Complaining of pain to Right lower lung Reviewed: Care Plan, H&P, Labs Changes from previous H/P or p: No Changes General: Per HPI Eyes: No Pain, No Vision change, No Conjunctivae inflammation, No Eyelid inflammation, No Other, No Redness ENT: No Ear pain, No Ear discharge, No Nose pain, No Nose discharge, No Nose congestion, No Mouth pain, No Mouth swelling, No Throat pain, No Throat swelling, No Other Cardiovascular: No Chest Pain, No Palpitations, No Orthopnea, No Paroxysmal Noc. Dyspnea, No Edema, No Lt Headedness, No Other Respiratory: No Cough, No Dry; Shortness of breath; No SOB with excertion, No Wheezing, No Hemoptysis, No Pleuritic Pain, No Sputum, No Other Gastrointestinal: No Nausea, No Vomiting, No Abdominal Pain, No Diarrhea, No Constipation, No Melena, No Hematochezia, No Other Genitourinary: No Dysuria, No Frequency, No Incontinence, No Hematuria, No Retention, No Other Musculoskeletal: No other, No neck pain, No shoulder pain, No arm pain, No back pain, No hand pain, No leg pain, No foot pain Skin: No Rash, No Lesions, No Jaundice, No Bruising, No Other Objective Vitals Vital Signs Date Time Temp Pulse Resp B/P (MAP) Pulse Ox O2 Delivery O2 Flow Rate FiO2 09/07/25 06:01 97 18 100 09/07/25 05:52 Nasal Cannula* 3 32 09/07/25 05:00 98.1 110/67 (81) 98.1 Intake/Output Intake and Output 09/07/25 07:00 Intake Total 1675 ml Output Total 2801 ml Balance -1126 ml Intake Oral 1525 ml IV Total 150 ml Output Urine Total 2800 ml Stool Total 1 ml General Appearance: Alert, Oriented X3, Cooperative HEENT: Atraumatic, PERRLA Lungs: Clear to auscultation, Normal air movement Cardiovascular: Normal S1, Normal S2 Abdomen: Normal bowel sounds, Soft, No tenderness Musculoskeletal: Normal sensory function, Normal motor function Skin: Dry, Intact Psych/Mental Status: Mental status NL, Mood NL Medications Current Medications Medications Dose Ordered Sig/Atilio Route Start Time Stop Time Status Last Admin Dose Admin Albuterol 2.5 mg Q6HWA [facility] 08/31/25 06:00 09/07/25 05:52 2.5 MG Ipratropium [place] 0.5 mg Q6HWA [facility] 08/31/25 06:00 09/07/25 05:52 0.5 MG Acetaminophen 650 mg Q6HR PO 08/31/25 00:00 09/06/25 18:30 650 MG Acetaminophen/ Hydrocodone Bitart 1 tab Q6HP PRN PO 08/30/25 21:45 09/07/25 05:26 1 TAB Enoxaparin Sodium 40 mg DAILY SC 08/31/25 10:00 09/06/25 09:38 40 MG Pantoprazole Sodium 40 mg DAILY@0600 PO 08/31/25 06:00 09/06/25 06:43 40 MG Ertapenem 1 gm/ Sodium Chloride 50 ml @ 100 mls/hr DAILY IV 09/02/25 10:00 09/06/25 14:06 100 MLS/HR Alprazolam 0.25 mg Q8HP PRN PO 09/02/25 09:45 09/05/25 03:41 0.25 MG Acetylcysteine 100 mg Q6HWA [facility] 09/02/25 12:00 09/07/25 05:53 100 MG Morphine Sulfate 2 mg Q4HPRN PRN IV 09/02/25 22:00 Enteral Nutritional Formula 240 ml BIDWM PO 09/05/25 18:00 09/07/25 08:11 240 ML Fluconazole 100 ml @ 100 mls/hr DAILY IV 09/06/25 10:00 09/06/25 09:48 100 MLS/HR Laboratory Results Laboratory Tests 09/04/25 09:30 Urinalysis Test 08/30/25 18:30 Urine Color Light-yellow (Yellow) Urine Clarity Clear (Clear) Urine pH 6.0 (5.0-9.0) Urine Specific [place] 1.009 (1.001-1.035) Urine Protein 1+ (Negative) H Urine Ketones Negative (Negative) Urine Blood Negative /uL (Negative) Urine Nitrite Negative (Negative) Urine Bilirubin Negative (Negative) Urine Urobilinogen Normal mg/dL (Negative) Urine Leukocyte Esterase 1+ /uL (Negative) Urine RBC 5 /hpf (0 - 4) Urine Microscopic WBC 12 /HPF (0-5) H Urine Squamous Epithelial Cells None seen /hpf (<5) Urine Bacteria None seen /hpf (None Seen) Urine Yeast (Budding) Occasional /hpf (None Urine Glucose Normal mg/dL (Normal) Urine Test Negative (Negative) Microbiology Microbiology Date/Time Source Procedure Growth Status 09/05/25 16:52 Pleural Fluid Gram Stain - Final Resulted 09/05/25 16:52 Pleural Fluid Body Fluid Culture - Preliminary No growth Resulted 08/30/25 23:36 Nose MRSA Screen - Final Complete 08/30/25 21:24 Blood Blood Culture - Final NO GROWTH AFTER 5 DAYS OF INCUBATION. Complete 08/30/25 18:30 Voided Urine Urine Culture - Final Presumptive Emma albicans Complete Labs and/or images reviewed: Labs reviewed by me, Image(s) reviewed by me Assessment/Plan Assessment/Plan Impression: -acute on chronic respiratory failure -COPD with exacerbation -right lower lobe pneumonia -? 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 Pending labs for today -pulmonary consultation: Discussed plan of care. -Continue abx -bronchodilators -Pulmicort -continue Plavix -PUD, DVT prophylaxis -DC planning Total time spent with patient discussing and formulating plan of care: 35 minutes. This medical document was created using an electronic medical record system with [employer] dictation system. Although this document has been carefully reviewed, there may still be some phonetic and typographical errors. These areas are purely typographical due to imperfections of the software programs, and do not reflect any compromise in the patient's medical care. Plan discussed with: Patient, Other (RN) My Orders Orders - YULIA WEBB NP Procedure Category Date Status Time Chest Xray 1 View XY 09/07/25 Taken 08:07 Magnesium LAB 09/07/25 Logged 08:09 Date of Service: Sep 07, 2025 Billing Provider: YULIA WEBB NP Common Visit Codes: [id number] INP/OBS CARE(HIGH) YULIA WEBB NP Sep 07, 2025 09:08
[2025-09-07 16:37] LABS: Potassium 3.9 mmol/L (3.5-5.1); Sodium 141 mmol/L (136-145)
[2025-09-07 16:44] LABS: BUN/Creatinine Ratio 27.7 (10.0-20.0); Blood Urea Nitrogen 18 mg/dL (9-23); Glucose 98 mg/dL (74-106)
[2025-09-07 16:49] LABS: Anion Gap 4.99999 (5-15); Calcium 8.3 mg/dL (8.7-10.4); Chloride 96 mmol/L (98-107)
[2025-09-07 16:50] LABS: Carbon Dioxide > 40 mmol/L (20-31)
[2025-09-07 17:40] LABS: Hematocrit 24.4 % (36.0-46.0); Hemoglobin 8.0 g/dL (12.2-16.2); Mean Corpuscular Hemoglobin 28.1 pg (28.0-32.0); Mean Corpuscular Volume 85.0 fL (80.0-100.0)
[2025-09-07 19:40] LABS: Total Cells Counted 100.0 (100)
[2025-09-07 19:41] LABS: Anisocytosis Slight
--- NOTE | 2025-09-07 23:41 | DVHPN2 ---
Subjective DOS: 09/07/2025 Patient seen and examined at bedside. Remains on supplemental oxygen Overnight events reviewed. Reviewed: Care Plan, H&P, Labs Changes from previous H/P or p: No Changes General: Per HPI Eyes: No Pain, No Vision change, No Conjunctivae inflammation, No Eyelid inflammation, No Other, No Redness ENT: No Ear pain, No Ear discharge, No Nose pain, No Nose discharge, No Nose congestion, No Mouth pain, No Mouth swelling, No Throat pain, No Throat swelling, No Other Cardiovascular: No Chest Pain, No Palpitations, No Orthopnea, No Paroxysmal Noc. Dyspnea, No Edema, No Lt Headedness, No Other Respiratory: No Cough, No Dry; Shortness of breath; No SOB with excertion, No Wheezing, No Hemoptysis, No Pleuritic Pain, No Sputum, No Other Gastrointestinal: No Nausea, No Vomiting, No Abdominal Pain, No Diarrhea, No Constipation, No Melena, No Hematochezia, No Other Genitourinary: No Dysuria, No Frequency, No Incontinence, No Hematuria, No Retention, No Other Musculoskeletal: No other, No neck pain, No shoulder pain, No arm pain, No back pain, No hand pain, No leg pain, No foot pain Skin: No Rash, No Lesions, No Jaundice, No Bruising, No Other Objective Vitals Vital Signs Date Time Temp Pulse Resp B/P (MAP) Pulse Ox O2 Delivery O2 Flow Rate FiO2 09/07/25 20:55 97.7 100 18 110/50 (70) 98 97.7 09/07/25 20:00 Nasal Cannula* 3 32 Intake/Output Intake and Output 09/07/25 07:00 Intake Total 1675 ml Output Total 2801 ml Balance -1126 ml Intake Oral 1525 ml IV Total 150 ml Output Urine Total 2800 ml Stool Total 1 ml Exam Gen.: Patient lying in bed in no apparent distress. On supplemental oxygen. Head: Normocephalic, atraumatic. Eyes: EOMI/PERRLA. Ears: Normal hearing. Normal anatomy. Neck/trachea: Trachea midline, supple. Nose: Normal external anatomy. Mouth: Moist mucous membranes. Chest: Decreased air entry bilaterally. No wheezing or rhonchi. Cardiovascular: Positive S1, positive S2. Regular rate and rhythm. Abdomen: Positive bowel sounds in all 4 quadrants. Soft, non-tender, non- distended. : Deferred. Rectal: Deferred. Skin: Warm, dry. Intact. Extremities: 2+ radial pulses bilaterally. No lower extremity edema. Neuro: Awake, alert, oriented x3. No gross motor or sensory deficits. Cranial nerves II through XII intact. Gait not assessed. General Appearance: Alert, Oriented X3, Cooperative HEENT: Atraumatic, PERRLA Lungs: Clear to auscultation, Normal air movement Cardiovascular: Normal S1, Normal S2 Abdomen: Normal bowel sounds, Soft, No tenderness Musculoskeletal: Normal sensory function, Normal motor function Skin: Dry, Intact Psych/Mental Status: Mental status NL, Mood NL Medications Current Medications Medications Dose Ordered Sig/Atilio Route Start Time Stop Time Status Last Admin Dose Admin Albuterol 2.[address] [facility] 08/31/25 06:00 09/07/25 19:18 2.5 MG Ipratropium [place] 0.5 mg Q6HWA NEB 08/31/25 06:00 09/07/25 19:18 0.5 MG Acetaminophen 650 mg Q6HR PO 08/31/25 00:00 09/07/25 11:40 650 MG Acetaminophen/ Hydrocodone Bitart 1 tab Q6HP PRN PO 08/30/25 21:45 09/07/25 20:07 1 TAB Enoxaparin Sodium 40 mg DAILY SC 08/31/25 10:00 09/07/25 09:06 40 MG Pantoprazole Sodium 40 mg DAILY@0600 PO 08/31/25 06:00 09/06/25 06:43 40 MG Ertapenem 1 gm/ Sodium Chloride 50 ml @ 100 mls/hr DAILY IV 09/02/25 10:00 09/07/25 09:06 100 MLS/HR Alprazolam 0.25 mg Q8HP PRN PO 09/02/25 09:45 09/07/25 15:08 0.25 MG Acetylcysteine 100 mg Q6HWA NEB 09/02/25 12:00 09/07/25 19:18 100 MG Morphine Sulfate 2 mg Q4HPRN PRN IV 09/02/25 22:00 Enteral Nutritional Formula 240 ml BIDWM PO 09/05/25 18:00 09/07/25 18:13 240 ML Fluconazole 100 ml @ 100 mls/hr DAILY IV 09/06/25 10:00 09/07/25 09:43 100 MLS/HR Laboratory Results Laboratory Tests 09/07/25 16:16 Chemistry Test 09/07/25 16:16 Calcium Level 8.3 mg/dL (8.7-10.4) L Magnesium Level 1.6 mg/dL (1.6-2.6) Urinalysis Test 08/30/25 18:30 Urine Color Light-yellow (Yellow) Urine Clarity Clear (Clear) Urine pH 6.0 (5.0-9.0) Urine Specific [place] 1.009 (1.001-1.035) Urine Protein 1+ (Negative) H Urine Ketones Negative (Negative) Urine Blood Negative /uL (Negative) Urine Nitrite Negative (Negative) Urine Bilirubin Negative (Negative) Urine Urobilinogen Normal mg/dL (Negative) Urine Leukocyte Esterase 1+ /uL (Negative) Urine RBC 5 /hpf (0 - 4) Urine Microscopic WBC 12 /HPF (0-5) H Urine Squamous Epithelial Cells None seen /hpf (<5) Urine Bacteria None seen /hpf (None Seen) Urine Yeast (Budding) Occasional /hpf (None Urine Glucose Normal mg/dL (Normal) Urine Test Negative (Negative) Microbiology Microbiology Date/Time Source Procedure Growth Status 09/05/25 16:52 Pleural Fluid Gram Stain - Final Resulted 09/05/25 16:52 Pleural Fluid Body Fluid Culture - Preliminary No growth Resulted 08/30/25 23:36 Nose MRSA Screen - Final Complete 08/30/25 21:24 Blood Blood Culture - Final NO GROWTH AFTER 5 DAYS OF INCUBATION. Complete 08/30/25 18:30 Voided Urine Urine Culture - Final Presumptive Emma albicans Complete Assessment/Plan Assessment/Plan Impression: Acute hypoxic respiratory failure Pneumonia, likely GNR Pleural effusion Atelectasis Emphysema Hx of nicotine dependence Events: Remains on supplemental oxygen, 3 LPM NC Taper O2 as tolerated S/p right thoracentesis yesterday with 300 ml of sanguineous/straw colored fluid removed. Reviewed CT chest with WENDY Castelan. Patient has right lower lobe consolidation Patient has deferred bronchoscopy and lung biopsy. Continue bronchodilators Mucomyst Continue antibiotics - complete course Monitor WBC Continue antifungal Incentive spirometry F/u cultures Monitor hemoglobin Transfuse if less than 7.0 g/dL. Nutritional support Monitor renal function. Monitor electrolytes. Supplement as necessary. Monitor ins and outs. Maintain euvolemia Overall prognosis is poor At risk for malignancy. Disposition per hospitalist. Labs and imaging reviewed. Rest of plan as noted below. Plan: Supplemental oxygen Titrate to keep O2 sats above 92%. Chest CT reviewed from 09/01: Small bodyz-[id number]-bblt-left pleural effusion with adjacent opacity. Superimposed infectious/inflammatory process cannot be excluded. 3.8 cm oval-shaped intermediate density opacity abuts the right pleural effusion. Emphysema. S/p right thoracentesis. Continue bronchodilators Mucomyst Continue antibiotics/antifungals Incentive spirometry WBC count improving. Monitor renal function. Monitor electrolytes. Supplement as necessary. Monitor ins and outs. Maintain euvolemia GI prophylaxis - Protonix DVT prophylaxis - Lovenox. Prognosis: Poor given patient's multiple co-morbidities. Rest of plan per hospitalist and other consultants. Thank you, WENDY Castelan, for allowing me to participate in this patient's care. Further recommendations will depend on the patient's clinical course. Please do not hesitate to contact me if you have any questions or concerns. This medical document was created using an electronic medical record system with [employer] dictation system. Although these documentations are being carefully reviewed, there may still be some phonetic and typographical changes. The errors are purely typographical, due to imperfection on the software program, and do not reflect any compromise in the patient's medical care. Plan discussed with: Patient, Other (DANICA Paredes) Visit Coding Pulmonary Billing Provider: CANDIDA MCKEON MD Date of Service if different f: Sep 07, 2025 Common Visit Codes: [id number] INP/OBS CARE(HIGH) CANDIDA MCKEON MD Sep 07, 2025 23:41
[2025-09-08] VITALS (10 sets, daily range): BP systolic 95–111; BP diastolic 55–70; PULSE 72–116; RESP 14–18; TEMP 36.6; O2SAT 90–99
--- NOTE | 2025-09-08 09:43 | DVHDS2 ---
Discharge Summary Date of Admission Aug 30, 2025 at 21:31 Date of Discharge: Sep 08, 2025 Admitting Diagnosis Sepsis possibly secondary to UTI Labs/Diagnostic Data: Laboratory Results Test 09/07/25 16:16 09/05/25 16:52 09/01/25 20:15 08/30/25 23:36 White Blood Count 13.0 10^3/uL (4.4-10.8) Red Blood Count 2.86 10^6/uL (4.0-5.20) Hemoglobin 8.0 g/dL (12.2-16.2) Hematocrit 24.4 % (36.0-46.0) Mean Corpuscular Volume 85.0 fL (80.0-100.0) Mean Corpuscular Hemoglobin 28.1 pg (28.0-32.0) Mean Corpuscular Hemoglobin Concent 33.0 g/dL (32.0-36.0) Red Cell Distribution Width 14.4 % (11.8-14.3) Platelet Count 337 10^3/uL (140-450) Mean Platelet Volume 8.2 fL (6.9-10.8) Neutrophils (%) (Auto) % (37.0-80.0) Lymphocytes (%) (Auto) % (10.0-50.0) Monocytes (%) (Auto) % (0.0-12.0) Basophils (%) (Auto) % (0.0-2.0) Neutrophils # (Auto) 10 ^3/uL (1.6-8.6) Lymphocytes # (Auto) 10 ^3/uL (0.4-5.4) Monocytes # (Auto) 10 ^3/uL (0-1.3) Differential Total Cells Counted 100.0 (100) Neutrophils % (Manual) 75 (37.0-80.0) Band Neutrophils % (Manual) 2 Lymphocytes % (Manual) 8 (10.0-50.0) Monocytes % (Manual) 12 (0-12) Eosinophils % (Manual) 0 (0-7) Basophils % (Manual) 0 (0.0-2.0) Metamyelocytes % (manual) 1 Myelocytes % (Manual) 0 Promyelocytes % (Manual) 0 Blast Cells % (Manual) 0 Reactive Lymphocytes 2 Platelet Estimate Adequate Anisocytosis (manual) Slight Sodium Level 141 mmol/L (136-145) Potassium Level 3.9 mmol/L (3.5-5.1) Chloride Level 96 mmol/L (98-107) Carbon Dioxide Level > 40 mmol/L (20-31) Anion Gap 4.39195 (5-15) Blood Urea Nitrogen 18 mg/dL (9-23) Creatinine 0.65 mg/dL (0.550-1.02) Glomerular Filtration Rate Calc 99 mL/min (>90) BUN/Creatinine Ratio 27.7 (10.0-20.0) Serum Glucose 98 mg/dL (74-106) Calcium Level 8.3 mg/dL (8.7-10.4) Magnesium Level 1.6 mg/dL (1.6-2.6) Body Fluid Source Pleural fluid Body Fluid pH 8.0 Body Fluid WBC (Manual) 86 CUMM (0-200) Body Fluid RBC (Manual) 594 CUMM (0-2000) Body Fluid Mononuclear Cells 74 % Body Fluid Polymorphonuclear Cells 26 % (0-25) Vancomycin Level Trough 37.0 ug/mL (5-10) Influenza Type A Antigen Negative (Negative) Influenza Type B Antigen Negative (Negative) SARS-CoV-2 Antigen (Rapid) Negative (NEGATIVE) Test 08/30/25 21:24 08/30/25 19:15 08/30/25 18:30 Troponin I High Sensitivity 17 ng/L (</=34) Eosinophils (%) (Auto) % (0.0-7.0) Eosinophils # (Auto) 10 ^3/uL (0-0.8) Basophils # (Auto) 10 ^3/uL (0-0.2) Nucleated Red Blood Cells % Smudge Cells 1 /100 WBC Large Platelets Few Microcytosis Slight Macrocytosis Slight Stomatocytes Few Lactic Acid Level 0.9 mmol/L (0.4-2.0) Total Bilirubin 0.2 mg/dL (0.2-1.0) Aspartate Amino Transferase (AST) 27 U/L (13-40) Alanine Aminotransferase (ALT) 14 U/L (7-40) Alkaline Phosphatase 112 U/L (46-116) B-Type Natriuretic Peptide 122.78 pg/mL (0-100) Total Protein 4.8 g/dL (5.7-8.2) Albumin 2.8 g/dL (3.2-4.8) Urine Color Light-yellow (Yellow) Urine Clarity Clear (Clear) Urine pH 6.0 (5.0-9.0) Urine Specific [place] 1.009 (1.001-1.035) Urine Protein 1+ (Negative) Urine Ketones Negative (Negative) Urine Blood Negative /uL (Negative) Urine Nitrite Negative (Negative) Urine Bilirubin Negative (Negative) Urine Urobilinogen Normal mg/dL (Negative) Urine Leukocyte Esterase 1+ /uL (Negative) Urine RBC 5 /hpf (0 - 4) Urine Microscopic WBC 12 /HPF (0-5) Urine Squamous Epithelial Cells None seen /hpf (<5) Urine Bacteria None seen /hpf (None Seen) Urine Yeast (Budding) Occasional /hpf (None Urine Glucose Normal mg/dL (Normal) Urine Test Negative (Negative) Other Laboratory Tests 09/07/25 16:16 Brief Hx & Hospital Course: History of Present Illness Patient is a 64 year old female with past medical history of CHF, COPD (uses 2 L oxygen at home), questionable lung cancer, asthma, muscular dystrophy, hyperlipidemia, hypertension , coronary artery disease ( status post PCI 1 stent in 2023), status post open heart surgery, who came to the hospital with chief complaints of worsening shortness of breath. She also reports of generalized weakness, pain and decreased oral intake. patient was recently hospitalized with pneumonia and complicated cystitis with ESBL In urine and was discharged with ertapenem to home. Patient denies fever, nausea, vomiting, or any recent bowel habit changes. Patient denies any sick contacts or recent injuries. Course of hospitalization: Further discussion with the patient and son reveals that she was readmitted with the hospital secondary to questionable swelling to the midline site as well as leaking around the area. Patient had re-evaluation of urine culture which was negative for any ESBL growth. Patient was noted to have greater than [address] growth of yeast. Patient was continued on Invanz as well as Diflucan while in the hospital. CT scan was performed of the chest given persistent right lower lobe opacity. Patient was noted to have persistent pneumonia with associated effusion. Pulmonology consultation was obtained. Patient underwent thoracentesis with a approximately 300 mL of fluid removed. Patient's respiratory status has improved. She has completed antibiotic therapy while in the hospital. Patient will be discharged back with home health services for vital sign monitoring, physical therapy, as well as assistance with medication management. Discussion was made with the patient's son regarding plan of care. All parties are in agreement with discharge plan. Physical examination General: Alert and Oriented x3. No acute distress. Well-nourished. Eyes: EOMI. Anicteric. HENT: Moist mucous membranes. Lungs:No accessory muscle use. Right lower lung rhonchi Cardiovascular: Regular rate and rhythm. No murmur. No JVD. Abdomen: Soft, non-tender and non-distended. No palpable masses. Extremities: No edema. Non-tender. Skin: No rashes or lesions. Warm. Neurologic: No focal neurological deficits. CN II-XII grossly intact, but not individually tested. Psychiatric: Cooperative. Appropriate mood and affect. Total time spent with patient discussing and formulating plan of care: 35 minutes. This medical document was created using an electronic medical record system with [employer] dictation system. Although this document has been carefully reviewed, there may still be some phonetic and typographical errors. These areas are purely typographical due to imperfections of the software programs, and do not reflect any compromise in the patient's medical care. Consults/Reason for consult Pulmonology: Persistent right lower lobe effusion/pneumonia Condition at Discharge: Guarded Final Diagnosis/Problems List Acute on chronic hypoxic respiratory failure secondary to right lower lobe pneumonia with parapneumonic effusion -acute on chronic respiratory failure -COPD with exacerbation -right lower lobe pneumonia -? 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 -RLL effusion Discharge Disposition: Home with Health Services Discharge Instruct/Medications Diet: Cardiac 2g Na,low cholest Activity: No Restrictions, As Tolerated Follow Up/Referral: Follow up with PCP in 1-2 weeks Medications: Continue all previous home medications Scheduled Acetaminophen (Tylenol 8 Hour Arthritis), 650 MG PO TID Aspirin (Aspir-Low), 81 MG PO DAILY, (Reported) Buspirone Hcl (Buspirone Hcl), 1 TAB PO TID, (Reported) Doxycycline (Monohydrate) (Doxycycline), 100 MG PO BID Empagliflozin (Jardiance), 1 TAB PO DAILY, (Reported) Lisinopril (Lisinopril), 1 TAB PO DAILY, (Reported) Methocarbamol (Methocarbamol), 750 MG PO BID Metoprolol Tartrate (Lopressor), 1 TAB PO DAILY, (Reported) Spironolactone (Spironolactone), 12.5 MG PO DAILY, (Reported) Miscellaneous Medications Atorvastatin Calcium (Atorvastatin Calcium), PO, (Reported) 36 Discharge Statement: "Patient was advised to return to the ER or call 911 if any headaches, dizziness, shortness of breath, chest pain, abdominal pain, bleeding, fevers, or worsening of medical condition. Patient was counseled about treatment plan, medications, possible side effects, patientverbalized understanding. All questions were answered to the best of my ability. This discharge took greater then 30 minutes in planning, reviewing documentation, counseling the patient, and discussing with other team members." ASSESSMENT ASSESSMENT Assessment Acute on chronic hypoxic respiratory failure secondary to right lower lobe pneumonia with parapneumonic effusion Date of Service: Sep 08, 2025 Billing Provider: YULIA WEBB NP Common Visit Codes: 84414-HDX/OBS DISCH DAY >30min YULIA WEBB NP Sep 08, 2025 09:43
[2025-09-08 13:07] LABS: Glucose, Body Fluid 88.0 mg/dL (.); LD, Body Fluid 72.0 IU/L (.)
--- NOTE | 2025-09-08 22:21 | DVHPN2 ---
Subjective DOS: 09/08/2025 Patient seen and examined at bedside. Remains on supplemental oxygen Overnight events reviewed. Reviewed: Care Plan, H&P, Labs Changes from previous H/P or p: No Changes General: Per HPI Eyes: No Pain, No Vision change, No Conjunctivae inflammation, No Eyelid inflammation, No Other, No Redness ENT: No Ear pain, No Ear discharge, No Nose pain, No Nose discharge, No Nose congestion, No Mouth pain, No Mouth swelling, No Throat pain, No Throat swelling, No Other Cardiovascular: No Chest Pain, No Palpitations, No Orthopnea, No Paroxysmal Noc. Dyspnea, No Edema, No Lt Headedness, No Other Respiratory: No Cough, No Dry; Shortness of breath; No SOB with excertion, No Wheezing, No Hemoptysis, No Pleuritic Pain, No Sputum, No Other Gastrointestinal: No Nausea, No Vomiting, No Abdominal Pain, No Diarrhea, No Constipation, No Melena, No Hematochezia, No Other Genitourinary: No Dysuria, No Frequency, No Incontinence, No Hematuria, No Retention, No Other Musculoskeletal: No other, No neck pain, No shoulder pain, No arm pain, No back pain, No hand pain, No leg pain, No foot pain Skin: No Rash, No Lesions, No Jaundice, No Bruising, No Other Objective Vitals Vital Signs Date Time Temp Pulse Resp B/P (MAP) Pulse Ox O2 Delivery O2 Flow Rate FiO2 09/08/25 12:07 110 18 99 09/08/25 11:57 Nasal Cannula 4.0 09/08/25 11:57 36 09/08/25 11:40 36.6 09/08/25 08:35 95/55 (68) Intake/Output Intake and Output 09/08/25 07:00 Intake Total 1050 ml Output Total 2500 ml Balance -1450 ml Intake Oral 750 ml Other 300 ml Output Urine Total 2500 ml # Bowel Movements 1 Exam Gen.: Patient lying in bed in no apparent distress. On supplemental oxygen. Head: Normocephalic, atraumatic. Eyes: EOMI/PERRLA. Ears: Normal hearing. Normal anatomy. Neck/trachea: Trachea midline, supple. Nose: Normal external anatomy. Mouth: Moist mucous membranes. Chest: Decreased air entry bilaterally. No wheezing or rhonchi. Cardiovascular: Positive S1, positive S2. Regular rate and rhythm. Abdomen: Positive bowel sounds in all 4 quadrants. Soft, non-tender, non- distended. : Deferred. Rectal: Deferred. Skin: Warm, dry. Intact. Extremities: 2+ radial pulses bilaterally. No lower extremity edema. Neuro: Awake, alert, oriented x3. No gross motor or sensory deficits. Cranial nerves II through XII intact. Gait not assessed. General Appearance: Alert, Oriented X3, Cooperative HEENT: Atraumatic, PERRLA Lungs: Clear to auscultation, Normal air movement Cardiovascular: Normal S1, Normal S2 Abdomen: Normal bowel sounds, Soft, No tenderness Musculoskeletal: Normal sensory function, Normal motor function Skin: Dry, Intact Psych/Mental Status: Mental status NL, Mood NL Laboratory Results Laboratory Tests 09/07/25 16:16 Urinalysis Test 08/30/25 18:30 Urine Color Light-yellow (Yellow) Urine Clarity Clear (Clear) Urine pH 6.0 (5.0-9.0) Urine Specific [place] 1.009 (1.001-1.035) Urine Protein 1+ (Negative) H Urine Ketones Negative (Negative) Urine Blood Negative /uL (Negative) Urine Nitrite Negative (Negative) Urine Bilirubin Negative (Negative) Urine Urobilinogen Normal mg/dL (Negative) Urine Leukocyte Esterase 1+ /uL (Negative) Urine RBC 5 /hpf (0 - 4) Urine Microscopic WBC 12 /HPF (0-5) H Urine Squamous Epithelial Cells None seen /hpf (<5) Urine Bacteria None seen /hpf (None Seen) Urine Yeast (Budding) Occasional /hpf (None Urine Glucose Normal mg/dL (Normal) Urine Test Negative (Negative) Microbiology Microbiology Date/Time Source Procedure Growth Status 09/05/25 16:52 Pleural Fluid Gram Stain - Final Resulted 09/05/25 16:52 Pleural Fluid Body Fluid Culture - Preliminary No growth Resulted 08/30/25 23:36 Nose MRSA Screen - Final Complete 08/30/25 21:24 Blood Blood Culture - Final NO GROWTH AFTER 5 DAYS OF INCUBATION. Complete 08/30/25 18:30 Voided Urine Urine Culture - Final Presumptive Emma albicans Complete Assessment/Plan Assessment/Plan Impression: Acute hypoxic respiratory failure Pneumonia, likely GNR Pleural effusion Atelectasis Emphysema Hx of nicotine dependence Events: Remains on supplemental oxygen, 3 LPM NC Taper O2 as tolerated CXR yesterday (09/07) reveals unchanged multifocal airspace disease. CT chest (09/01) reviewed with WENDY Castelan showed right lower lobe consolidation Patient has deferred bronchoscopy and lung biopsy. S/p right thoracentesis on 09/06/25 with 300 ml of sanguineous/straw colored fluid removed. Continue bronchodilators Mucomyst Continue antibiotics - complete course Monitor WBC Continue antifungal Incentive spirometry F/u cultures Monitor hemoglobin Transfuse if less than 7.0 g/dL. HOB elevation Aspiration precautions Nutritional support Monitor renal function. Monitor electrolytes. Supplement as necessary. Monitor ins and outs. Maintain euvolemia Overall prognosis is poor At risk for malignancy. Disposition per hospitalist. Labs and imaging reviewed. Rest of plan as noted below. Plan: Supplemental oxygen Titrate to keep O2 sats above 92%. Chest CT reviewed from 09/01: Small qxiaw-[id number]-elea-left pleural effusion with adjacent opacity. Superimposed infectious/inflammatory process cannot be excluded. 3.8 cm oval-shaped intermediate density opacity abuts the right pleural effusion. Emphysema. S/p right thoracentesis. Continue bronchodilators Mucomyst Continue antibiotics/antifungals Incentive spirometry Monitor renal function. Monitor electrolytes. Supplement as necessary. Monitor ins and outs. Maintain euvolemia GI prophylaxis - Protonix DVT prophylaxis - Lovenox. Prognosis: Poor given patient's multiple co-morbidities. Rest of plan per hospitalist and other consultants. Thank you, WENDY Castelan, for allowing me to participate in this patient's care. Further recommendations will depend on the patient's clinical course. Please do not hesitate to contact me if you have any questions or concerns. This medical document was created using an electronic medical record system with [employer] dictation system. Although these documentations are being carefully reviewed, there may still be some phonetic and typographical changes. The errors are purely typographical, due to imperfection on the software program, and do not reflect any compromise in the patient's medical care. Plan discussed with: Patient, Other (DANICA Paredes) Visit Coding Pulmonary Billing Provider: CANDIDA MCKEON MD Date of Service if different f: Sep 08, 2025 Common Visit Codes: [id number] INP/OBS CARE(HIGH) CANDIDA MCKEON MD Sep 08, 2025 22:21
== END 2025-09-08 15:30 | disposition home health service (06) | DRG 720 ==
LOC: ER 17:08 → EDBD 17:08 → OVERFLOW 21:31 → CENTRAL 23:56
PROVIDERS: ADMIT Nurse Practitioner Acute Care; ATTEND Nurse Practitioner Acute Care
PROC: 0W9930Z Drainage of Right Pleural Cavity with Drainage Device, Percutaneous Approach (ICD-10-PCS; principal; 2025-09-05)
DX: A41.9 Sepsis, unspecified organism (principal); I50.41 Acute combined systolic (congestive) and diastolic (congestive) heart failure; J96.21 Acute and chronic respiratory failure with hypoxia; J69.0 Pneumonitis due to inhalation of food and vomit; G93.41 Metabolic encephalopathy; J18.9 Pneumonia, unspecified organism; J44.0 Chronic obstructive pulmonary disease with (acute) lower respiratory infection; J90 Pleural effusion, not elsewhere classified; N39.0 Urinary tract infection, site not specified; R64 Cachexia; I11.0 Hypertensive heart disease with heart failure; Z95.2 Presence of prosthetic heart valve; Z16.12 Extended spectrum beta lactamase (ESBL) resistance; Z20.822 Contact with and (suspected) exposure to COVID-19; Z68.1 Body mass index [BMI] 19.9 or less, adult; I25.10 Atherosclerotic heart disease of native coronary artery without angina pectoris; J44.1 Chronic obstructive pulmonary disease with (acute) exacerbation; J43.9 Emphysema, unspecified; D75.89 Other specified diseases of blood and blood-forming organs; E78.00 Pure hypercholesterolemia, unspecified; F17.200 Nicotine dependence, unspecified, uncomplicated; J98.11 Atelectasis; Z82.49 Family history of ischemic heart disease and other diseases of the circulatory system; Z87.01 Personal history of pneumonia (recurrent); Z90.710 Acquired absence of both cervix and uterus; Z95.5 Presence of coronary angioplasty implant and graft
CPT/HCPCS: 32554; 36415; 71045; 71250; 80048; 80053; 80202; 81001; 81025; 82565; 83605; 83735; 83880; 83986; 84484; 85007; 85014; 85018; 85025; 85027; 87040; 87071; 87077; 87081; 87086; 87088; 87205; 87426; 87804; 89051; 93005; 93306; 94640; 94668; 96365; G0378; J1335; J1450; J2185; J2405